=== PATIENT | female | born 1945 | race Caucasian/White ===

== ENCOUNTER 2016-11-17 18:42 | Inpatient (IN) | payer MEDICARE, OTHER ==
[2016-11-17] MEDS ORDERED: ACETAMINOPHEN TAB 500 MG TAB PO STA (19:03)
[2016-11-17] MEDS ORDERED: methylPREDNISolone SOD SUCCI 125 MG/2 ML VIAL IV STA (19:04)
[2016-11-17] MEDS ORDERED: ALBUTEROL NEBULIZED 15 MG, IPRATROPIUM NEBULIZED 0.5 MG INHALATION ONE ×2 (19:04)
--- NOTE | 2016-11-17 19:11 | ED ---
SOB HPI - General Source: patient, RN notes reviewed Mode of arrival: EMS Limitations: no limitations <Kristie Hay - Last Filed: 11/17/16 19:50> <Misbah Curtis - Last Filed: 11/17/16 20:50> <Richard Jimenez - Last Filed: 11/17/16 21:45> - General Chief Complaint: Shortness of Breath Stated Complaint: Weakness Time Seen by Provider: 11/17/16 18:59 - History of Present Illness Initial Comments: 71-year-old female presents to the emergency department chief complaint of increased shortness of breath. The patient has been being treated for bronchitis outpatiently for the past week or so. The patient states today she had increased shortness of breath she has had a cough. Patient states that she developed a fever as well. Patient is a no pain she just feels very short of breath and very tired. Patient states she does wear oxygen at night but does not wear during the day. Patient states that she hasn't had any nausea or vomiting with this. Patient is otherwise a poor historian and unable to give any other history. Family unable to give any other history either. (Kristie Hay) - Related Data Home Medications Medication Instructions Recorded Confirmed Atenolol [Tenormin] 25 mg PO DAILY 11/17/16 11/17/16 Atorvastatin [Lipitor] 40 mg PO HS 11/17/16 11/17/16 Cholecalciferol [Vitamin D3] 4,000 unit PO DAILY 11/17/16 11/17/16 Cyanocobalamin [Vitamin B-12] 500 mcg PO DAILY 11/17/16 11/17/16 Fluticasone/Salmeterol [Advair 1 puff INHALATION RT-BID 11/17/16 11/17/16 250-50 Diskus] Gabapentin 800 mg PO TID 11/17/16 11/17/16 Glimepiride [Amaryl] 4 mg PO AC-BID 11/17/16 11/17/16 Insulin Aspart [NovoLOG Flexpen] 20 units SQ AC-TID 11/17/16 11/17/16 Insulin Degludec [Tresiba 88 unit SQ DAILY 11/17/16 11/17/16 Flextouch U-200] Insulin Detemir [Levemir] 80 unit SQ DAILY 11/17/16 11/17/16 Losartan/Hydrochlorothiazide 1 tab PO DAILY 11/17/16 11/17/16 [Losartan-Hctz 100-12.5 mg Tab] Meclizine [Antivert] 12.5 mg PO TID PRN 11/17/16 11/17/16 Meloxicam [Mobic] 7.5 mg PO HS 11/17/16 11/17/16 Metoprolol Succinate [Toprol XL] 25 mg PO DAILY 11/17/16 11/17/16 Nizatidine [Axid] 150 mg PO HS 11/17/16 11/17/16 Omeprazole 20 mg PO DAILY 11/17/16 11/17/16 glyBURIDE/METFORMIN HCL 1 tab PO BID 11/17/16 11/17/16 [glyBURIDE/METFORMIN HCL 5-500 mg] Allergies Allergy/AdvReac Type Severity Reaction Status Date / Time codeine Allergy Unknown Verified 11/17/16 19:23 Review of Systems ROS Other: All systems not noted in ROS Statement are negative. <Kristie Hay - Last Filed: 11/17/16 19:50> ROS Other: All systems not noted in ROS Statement are negative. <Misbah Curtis - Last Filed: 11/17/16 20:50> ROS Other: All systems not noted in ROS Statement are negative. <Richard Jimenez - Last Filed: 11/17/16 21:45> ROS Statement: Those systems with pertinent positive or pertinent negative responses have been documented in the HPI. Past Medical History Past Medical History: COPD, Diabetes Mellitus, Hyperlipidemia, Hypertension, Memory Impairment Additional Past Medical History / Comment(s): lung cancer, tubal ligation, spinal meningitis 1970, wears 2L o2 at night History of Any Multi-Drug Resistant Organisms: None Reported Additional Past Surgical History / Comment(s): left lower lobe lung removed, right shoulder rotator cuff Past Psychological History: No Psychological Hx Reported Smoking Status: Former smoker Past Alcohol Use History: None Reported Past Drug Use History: None Reported <Kristie Hay - Last Filed: 11/17/16 19:50> General Exam Limitations: no limitations General appearance: alert, in distress (x) Head exam: Present: atraumatic, normocephalic, normal inspection Eye exam: Present: normal appearance, PERRL, EOMI. Absent: scleral icterus, conjunctival injection, periorbital swelling ENT exam: Present: normal exam, mucous membranes moist Respiratory exam: Present: respiratory distress (Mild), wheezes (Diffuse), decreased breath sounds (Diffuse). Absent: chest wall tenderness Cardiovascular Exam: Present: tachycardia, normal heart sounds GI/Abdominal exam: Present: soft, normal bowel sounds. Absent: distended, tenderness, guarding, rebound, rigid Neurological exam: Present: alert, oriented X3, CN II-XII intact. Absent: motor sensory deficit Psychiatric exam: Present: normal affect, normal mood Skin exam: Present: warm, dry, intact, normal color. Absent: rash <Kristie Hay - Last Filed: 11/17/16 19:50> Course <Kristie Hay - Last Filed: 11/17/16 19:50> <Misbah Curtis - Last Filed: 11/17/16 20:50> <Richard Jimenez - Last Filed: 11/17/16 21:45> Vital Signs 11/17/16 11/17/16 11/17/16 18:59 19:44 19:49 Temperature 102.9 F H Pulse Rate 125 H 118 H 98 Respiratory 24 20 Rate Blood Pressure 213/90 192/92 O2 Sat by Pulse 92 L 94 L Oximetry 11/17/16 11/17/16 11/17/16 19:56 20:00 20:30 Temperature Pulse Rate 116 H 100 120 H Respiratory 16 18 Rate Blood Pressure 193/70 170/78 O2 Sat by Pulse 94 L 95 Oximetry 11/17/16 11/17/16 11/17/16 20:49 20:55 21:01 Temperature 101.5 F H Pulse Rate 120 H 122 H Respiratory 20 Rate Blood Pressure 202/75 O2 Sat by Pulse 95 Oximetry 11/17/16 21:17 Temperature Pulse Rate 120 H Respiratory 16 Rate Blood Pressure 168/62 O2 Sat by Pulse 92 L Oximetry - Reevaluation(s) Reevaluation #1: 11/17/16 19:51 This case will be signed out to Dr. Curtis. (Kristie Hay) Medical Decision Making - Lab Data Result diagrams: 11/17/16 19:00 <Kristie Hay - Last Filed: 11/17/16 19:50> - Lab Data Result diagrams: 11/17/16 19:00 11/17/16 19:00 <Misbah Curtis - Last Filed: 11/17/16 20:50> - Lab Data Result diagrams: 11/17/16 19:00 11/17/16 19:00 <Richard Jimenez - Last Filed: 11/17/16 21:45> - Medical Decision Making 71-year-old female presents to the emergency department with a chief complaint of shortness of breath. (Kristie Hay) Dr. Emanuel will be taking over the care of this patient at 9 PM (Misbah Curtis) Receive this patient has a sign out to arrange the patient's admission for COPD exacerbation and probable pneumonia, and to receive the results of the influenza swab which is negative now. Case discussed with , who will admit for further treatment. (Richadr Jimenez) - Lab Data Lab Results 11/17/16 11/17/16 11/17/16 Range/Units 19:00 19:00 19:00 WBC 8.8 (3.8-10.6) k/uL RBC 4.88 (3.80-5.40) m/uL Hgb 13.4 (11.4-16.0) gm/dL Hct 41.7 (34.0-46.0) % MCV 85.5 (80.0-100.0) fL MCH 27.5 (25.0-35.0) pg MCHC 32.1 (31.0-37.0) g/dL RDW 14.2 (11.5-15.5) % Plt Count 182 (150-450) k/uL Neutrophils % 79 % Lymphocytes % 13 % Monocytes % 5 % Eosinophils % 0 % Basophils % 1 % Neutrophils # 6.9 (1.3-7.7) k/uL Lymphocytes # 1.1 (1.0-4.8) k/uL Monocytes # 0.5 (0-1.0) k/uL Eosinophils # 0.0 (0-0.7) k/uL Basophils # 0.1 (0-0.2) k/uL PT (9.0-12.0) sec INR (<1.1) APTT (22.0-30.0) sec Sodium 135 L (137-145) mmol/L Potassium 4.7 (3.5-5.1) mmol/L Chloride 97 L (98-107) mmol/L Carbon Dioxide 28 (22-30) mmol/L Anion Gap 10 mmol/L BUN 31 H (7-17) mg/dL Creatinine 0.70 (0.52-1.04) mg/dL Est GFR (MDRD) Af Amer >60 (>60 ml/min/1.73 sqM) Est GFR (MDRD) Non-Af >60 (>60 ml/min/1.73 sqM) Glucose 229 H (74-99) mg/dL POC Glucose (mg/dL) (75-99) mg/dL POC Glu Social Media Senior Associate ID Plasma Lactic Acid [place] (0.7-2.0) mmol/L Calcium 8.5 (8.4-10.2) mg/dL Total Bilirubin 0.5 (0.2-1.3) mg/dL AST 25 (14-36) U/L ALT 29 (9-52) U/L Alkaline Phosphatase 66 (38-126) U/L Total Creatine Kinase 65 (30-135) U/L CK-MB (CK-2) 1.1 (0.0-2.4) ng/mL CK-MB (CK-2) Rel Index 1.7 Troponin I 0.053 H* (0.000-0.034) ng/mL NT-Pro-B Natriuret Pep pg/mL Total Protein 6.5 (6.3-8.2) g/dL Albumin 3.2 L (3.5-5.0) g/dL Cortisol 37 ug/dL Urine Color Urine Appearance (Clear) Urine pH (5.0-8.0) Ur Specific [place] (1.001-1.035) Urine Protein (Negative) Urine Glucose (UA) (Negative) Urine Ketones (Negative) Urine Blood (Negative) Urine Nitrate (Negative) Urine Bilirubin (Negative) Urine Urobilinogen (<2.0) mg/dL Ur Leukocyte Esterase (Negative) Urine RBC (0-5) /hpf Urine WBC (0-5) /hpf Urine Mucus (None) /hpf Acetone, Qual (Negative) Influenza Type A RNA (Not Detectd) Influenza Type B (PCR) (Not Detectd) 11/17/16 11/17/16 11/17/16 Range/Units 19:00 19:00 19:00 WBC (3.8-10.6) k/uL RBC (3.80-5.40) m/uL Hgb (11.4-16.0) gm/dL Hct (34.0-46.0) % MCV (80.0-100.0) fL MCH (25.0-35.0) pg MCHC (31.0-37.0) g/dL RDW (11.5-15.5) % Plt Count (150-450) k/uL Neutrophils % % Lymphocytes % % Monocytes % % Eosinophils % % Basophils % % Neutrophils # (1.3-7.7) k/uL Lymphocytes # (1.0-4.8) k/uL Monocytes # (0-1.0) k/uL Eosinophils # (0-0.7) k/uL Basophils # (0-0.2) k/uL PT 10.3 (9.0-12.0) sec INR 1.0 (<1.1) APTT 20.9 L (22.0-30.0) sec Sodium (137-145) mmol/L Potassium (3.5-5.1) mmol/L Chloride (98-107) mmol/L Carbon Dioxide (22-30) mmol/L Anion Gap mmol/L BUN (7-17) mg/dL Creatinine (0.52-1.04) mg/dL Est GFR (MDRD) Af Amer (>60 ml/min/1.73 sqM) Est GFR (MDRD) Non-Af (>60 ml/min/1.73 sqM) Glucose (74-99) mg/dL POC Glucose (mg/dL) (75-99) mg/dL POC Glu Social Media Senior Associate ID Plasma Lactic Acid [place] 0.9 (0.7-2.0) mmol/L Calcium (8.4-10.2) mg/dL Total Bilirubin (0.2-1.3) mg/dL AST (14-36) U/L ALT (9-52) U/L Alkaline Phosphatase (38-126) U/L Total Creatine Kinase (30-135) U/L CK-MB (CK-2) (0.0-2.4) ng/mL CK-MB (CK-2) Rel Index Troponin I (0.000-0.034) ng/mL NT-Pro-B Natriuret Pep 626 pg/mL Total Protein (6.3-8.2) g/dL Albumin (3.5-5.0) g/dL Cortisol ug/dL Urine Color Urine Appearance (Clear) Urine pH (5.0-8.0) Ur Specific [place] (1.001-1.035) Urine Protein (Negative) Urine Glucose (UA) (Negative) Urine Ketones (Negative) Urine Blood (Negative) Urine Nitrate (Negative) Urine Bilirubin (Negative) Urine Urobilinogen (<2.0) mg/dL Ur Leukocyte Esterase (Negative) Urine RBC (0-5) /hpf Urine WBC (0-5) /hpf Urine Mucus (None) /hpf Acetone, Qual (Negative) Influenza Type A RNA (Not Detectd) Influenza Type B (PCR) (Not Detectd) 11/17/16 11/17/16 11/17/16 Range/Units 19:00 19:35 19:48 WBC (3.8-10.6) k/uL RBC (3.80-5.40) m/uL Hgb (11.4-16.0) gm/dL Hct (34.0-46.0) % MCV (80.0-100.0) fL MCH (25.0-35.0) pg MCHC (31.0-37.0) g/dL RDW (11.5-15.5) % Plt Count (150-450) k/uL Neutrophils % % Lymphocytes % % Monocytes % % Eosinophils % % Basophils % % Neutrophils # (1.3-7.7) k/uL Lymphocytes # (1.0-4.8) k/uL Monocytes # (0-1.0) k/uL Eosinophils # (0-0.7) k/uL Basophils # (0-0.2) k/uL PT (9.0-12.0) sec INR (<1.1) APTT (22.0-30.0) sec Sodium (137-145) mmol/L Potassium (3.5-5.1) mmol/L Chloride (98-107) mmol/L Carbon Dioxide (22-30) mmol/L Anion Gap mmol/L BUN (7-17) mg/dL Creatinine (0.52-1.04) mg/dL Est GFR (MDRD) Af Amer (>60 ml/min/1.73 sqM) Est GFR (MDRD) Non-Af (>60 ml/min/1.73 sqM) Glucose (74-99) mg/dL POC Glucose (mg/dL) 219 H (75-99) mg/dL POC Glu Social Media Senior Associate ID Denisa Hernandez Plasma Lactic Acid [place] (0.7-2.0) mmol/L Calcium (8.4-10.2) mg/dL Total Bilirubin (0.2-1.3) mg/dL AST (14-36) U/L ALT (9-52) U/L Alkaline Phosphatase (38-126) U/L Total Creatine Kinase (30-135) U/L CK-MB (CK-2) (0.0-2.4) ng/mL CK-MB (CK-2) Rel Index Troponin I (0.000-0.034) ng/mL NT-Pro-B Natriuret Pep pg/mL Total Protein (6.3-8.2) g/dL Albumin (3.5-5.0) g/dL Cortisol ug/dL Urine Color Yellow Urine Appearance Cloudy H (Clear) Urine pH 6.0 (5.0-8.0) Ur Specific [place] 1.016 (1.001-1.035) Urine Protein 3+ H (Negative) Urine Glucose (UA) Negative (Negative) Urine Ketones Negative (Negative) Urine Blood Small H (Negative) Urine Nitrate Negative (Negative) Urine Bilirubin Negative (Negative) Urine Urobilinogen <2.0 (<2.0) mg/dL Ur Leukocyte Esterase Trace H (Negative) Urine RBC 3 (0-5) /hpf Urine WBC 15 H (0-5) /hpf Urine Mucus Rare H (None) /hpf Acetone, Qual Negative (Negative) Influenza Type A RNA (Not Detectd) Influenza Type B (PCR) (Not Detectd) 11/17/16 Range/Units 20:25 WBC (3.8-10.6) k/uL RBC (3.80-5.40) m/uL Hgb (11.4-16.0) gm/dL Hct (34.0-46.0) % MCV (80.0-100.0) fL MCH (25.0-35.0) pg MCHC (31.0-37.0) g/dL RDW (11.5-15.5) % Plt Count (150-450) k/uL Neutrophils % % Lymphocytes % % Monocytes % % Eosinophils % % Basophils % % Neutrophils # (1.3-7.7) k/uL Lymphocytes # (1.0-4.8) k/uL Monocytes # (0-1.0) k/uL Eosinophils # (0-0.7) k/uL Basophils # (0-0.2) k/uL PT (9.0-12.0) sec INR (<1.1) APTT (22.0-30.0) sec Sodium (137-145) mmol/L Potassium (3.5-5.1) mmol/L Chloride (98-107) mmol/L Carbon Dioxide (22-30) mmol/L Anion Gap mmol/L BUN (7-17) mg/dL Creatinine (0.52-1.04) mg/dL Est GFR (MDRD) Af Amer (>60 ml/min/1.73 sqM) Est GFR (MDRD) Non-Af (>60 ml/min/1.73 sqM) Glucose (74-99) mg/dL POC Glucose (mg/dL) (75-99) mg/dL POC Glu Social Media Senior Associate ID Plasma Lactic Acid [place] (0.7-2.0) mmol/L Calcium (8.4-10.2) mg/dL Total Bilirubin (0.2-1.3) mg/dL AST (14-36) U/L ALT (9-52) U/L Alkaline Phosphatase (38-126) U/L Total Creatine Kinase (30-135) U/L CK-MB (CK-2) (0.0-2.4) ng/mL CK-MB (CK-2) Rel Index Troponin I (0.000-0.034) ng/mL NT-Pro-B Natriuret Pep pg/mL Total Protein (6.3-8.2) g/dL Albumin (3.5-5.0) g/dL Cortisol ug/dL Urine Color Urine Appearance (Clear) Urine pH (5.0-8.0) Ur Specific [place] (1.001-1.035) Urine Protein (Negative) Urine Glucose (UA) (Negative) Urine Ketones (Negative) Urine Blood (Negative) Urine Nitrate (Negative) Urine Bilirubin (Negative) Urine Urobilinogen (<2.0) mg/dL Ur Leukocyte Esterase (Negative) Urine RBC (0-5) /hpf Urine WBC (0-5) /hpf Urine Mucus (None) /hpf Acetone, Qual (Negative) Influenza Type A RNA Not Detected (Not Detectd) Influenza Type B (PCR) Not Detected (Not Detectd) 11/17/16 19:50 Sinus tachycardia 119 possible left atrial enlargement, incomplete right bundle branch block, T-wave inversion in V5 and V6. No ST elevation (Kristie Hay) Disposition <Kristie Hay - Last Filed: 11/17/16 19:50> <Misbah Curtis - Last Filed: 11/17/16 20:50> <Richard Jimenez - Last Filed: 11/17/16 21:45> Clinical Impression: COPD exacerbation, Pneumonia Narrative: Possible influenza (Richard Jimenez) Disposition: ADMITTED IP TO THIS HOSP Condition: Fair Referrals: Mariaa Chery DO [Primary Care Provider] - 1-2 days
[2016-11-17] MEDS ORDERED: IBUPROFEN 600 MG TAB PO STA (19:16)
[2016-11-17] MEDS ORDERED: hydrALAZINE HCL 20 MG/ML 1 ML VIAL IVP STA (19:16)
[2016-11-17 19:31] LABS: Basophils # (A) 0.1 k/uL (0-0.2); Basophils % (A) 1 %; CH 28.6; CHCM 33.6; Eosinophils % (A) 0 %; HCT 41.7 % (34.0-46.0); HDW 3.09; HGB 13.4 gm/dL (11.4-16.0); Luc # (Auto) 0.18; Luc % (Auto) 2; Lymphocytes # (A) 1.1 k/uL (1.0-4.8); Lymphocytes % (A) 13 %; MCH 27.5 pg (25.0-35.0); MCHC 32.1 g/dL (31.0-37.0); MCV 85.5 fL (80.0-100.0); Mean Platelet Volume 7.2; Monocytes # (A) 0.5 k/uL (0-1.0); Monocytes % (A) 5 %; Neutrophils # (A) 6.9 k/uL (1.3-7.7); Neutrophils % (A) 79 %; RBC 4.88 m/uL (3.80-5.40); RDW 14.2 % (11.5-15.5); WBC 8.8 k/uL (3.8-10.6); WBC (Perox) 8.82
[2016-11-17] MEDS: SODIUM CHLORIDE 0.9% 500 ML IV SCH ×2 (19:49→23:21)
[2016-11-17 19:51] LABS: Glucose,Whole Blood 219 mg/dL (75-99)
[2016-11-17 19:52] LABS: ALT 29 U/L (9-52); AST 25 U/L (14-36); Alkaline Phosphatase 66 U/L (38-126); Anion Gap 10 mmol/L; Blood Urea Nitrogen 31 mg/dL (7-17); Calcium 8.5 mg/dL (8.4-10.2); Carbon Dioxide 28 mmol/L (22-30); Chloride 97 mmol/L (98-107); Glucose 229 mg/dL (74-99); Non-African American GFR(MDRD) >60 (>60 ml/min/1.73 sqM); Potassium 4.7 mmol/L (3.5-5.1); Sodium 135 mmol/L (137-145); Total Bilirubin 0.5 mg/dL (0.2-1.3); Total Protein 6.5 g/dL (6.3-8.2)
[2016-11-17 19:53] LABS: Appearance,Urine Cloudy (Clear); Bilirubin,Urine Negative (Negative); Glucose,Urine (UA) Negative (Negative); Ketones,Urine Negative (Negative); Leukocyte Esterase,Urine Trace (Negative); Mucus,Urine Rare /hpf; Nitrite,Urine Negative (Negative); Particle Count 126188; Protein,Urine 3+ (Negative); RBC,Urine 3 /hpf (0-5); Specific Gravity,Urine 1.016 (1.001-1.035); UA Billing (MACRO vs. MICRO) MICRO; Urobilinogen,Urine <2.0 mg/dL (<2.0); WBC,Urine 15 /hpf (0-5)
--- NOTE | 2016-11-17 20:03 | XR ---
EXAMINATION TYPE: XR chest 2V DATE OF EXAM: 11/17/2016 7:26 PM COMPARISON: 01/15/2010 HISTORY: Weakness and fever TECHNIQUE: Frontal and lateral views of the chest are obtained. FINDINGS: There is evidence of infiltrate in the left lower lobe with also blunting of left costophr enic angle. There is mild pulmonary vascular congestion. Thoracic aorta is atheromatous. There are no hilar masses. The bony thorax is intact. IMPRESSION: There is infiltrate and pleural fluid in the left lower lobe with more than 50% clearing compared to last exam of 01/15/2010. There is also clearing of a rounded 3 cm pneumonia in the right m idlung since last exam. There is mild pulmonary vascular congestion.
[2016-11-17 20:06] LABS: Creatine Kinase MB 1.1 ng/mL (0.0-2.4)
[2016-11-17 20:18] LABS: Prothrombin Time 10.3 sec (9.0-12.0)
[2016-11-17 20:24] LABS: Troponin I 0.053 ng/mL (0.000-0.034)
[2016-11-17 20:31] LABS: Partial Thromboplastin Time 20.9 sec (22.0-30.0)
[2016-11-17] MEDS ORDERED: AZITHROMYCIN 500 MG TAB PO STA (21:13)
[2016-11-17] MEDS: SODIUM CHLORIDE 0.9% 1,000 ML IV SCH (21:22)
[2016-11-18] MEDS: GABAPENTIN 400 MG CAP PO SCH ×4 (00:19→21:01)
[2016-11-18 01:44] LABS: Creatine Kinase MB 1.2 ng/mL (0.0-2.4)
[2016-11-18 01:50] LABS: Troponin I 0.075 ng/mL (0.000-0.034)
[2016-11-18 06:20] LABS: Glucose,Whole Blood 359 mg/dL (75-99)
[2016-11-18] MEDS: GLIMEPIRIDE 4 MG TAB PO SCH ×2 (07:09→16:24)
[2016-11-18] MEDS: PANTOPRAZOLE 40 MG TABLET PO SCH (07:09)
[2016-11-18] MEDS: INSULIN LISPRO (humaLOG) 300 UNIT/3 ML VIAL SQ SCH ×7 (07:09→21:03)
[2016-11-18] MEDS: metFORMIN 500 MG TAB PO SCH ×2 (07:09→16:24)
[2016-11-18] MEDS: glipiZIDE 5 MG TAB PO SCH ×2 (07:09→16:24)
[2016-11-18 07:36] LABS: Creatine Kinase MB 1.3 ng/mL (0.0-2.4)
[2016-11-18 07:37] LABS: Troponin I 0.035 ng/mL (0.000-0.034)
[2016-11-18] MEDS: CHOLECALCIFEROL 1,000 UNIT TAB PO SCH (07:44)
[2016-11-18] MEDS: CYANOCOBALAMIN 500 MCG TAB PO SCH (07:45)
[2016-11-18] MEDS: HYDROCHLOROTHIAZIDE 12.5 MG CAP PO SCH (07:45)
[2016-11-18] MEDS: HEPARIN SODIUM,PORCINE 5,000 UNIT/ML 1 ML VIAL SQ SCH ×2 (07:45→21:01)
[2016-11-18] MEDS: LOSARTAN 50 MG TAB PO SCH (07:46)
[2016-11-18] MEDS: SYMBICORT 80-4.5 MCG INHALER INHALATION SCH ×2 (08:00→20:19)
[2016-11-18] MEDS ORDERED: INSULIN DEGLUDEC SQ SCH (09:00)
[2016-11-18] MEDS ORDERED: ATENOLOL 25 MG TAB PO SCH (09:00)
[2016-11-18] MEDS: predniSONE 20 MG TAB PO SCH (09:35)
[2016-11-18] MEDS: IPRATROPIUM-ALBUTEROL 3 ML NEB INHALATION SCH ×5 (11:18→20:17)
[2016-11-18 11:32] VITALS: BMI 29.7
[2016-11-18 11:39] LABS: Glucose,Whole Blood 293 mg/dL (75-99)
--- NOTE | 2016-11-18 13:06 | P.HPIM ---
History of Present Illness H&P Date: 11/18/16 Chief Complaint: Weakness febrile illness and cough Patient is a 71-year-old female patient of Dr. Mariaa Chery who presented to [facility] emergency room with increased weakness elevated temperature and cough she was evaluated in the emergency room preliminary diagnosis was pneumonia she was admitted to telemetry floor she was started on IV antibiotic in the emergency room she was given IV Rocephin and IV Zithromax she was also started on IV Solu-Medrol and admitted to telemetry floor. Patient states that she had pneumonia previously of 6-7 years ago otherwise she denies any previous lung disease. She denies ever smoking. She states that she has coronary artery disease she had angioplasty and stent placement in the past. Review of Systems Respiratory: Reports congestion, Reports cough Past Medical History Past Medical History: COPD, Diabetes Mellitus, Hyperlipidemia, Hypertension, Memory Impairment Additional Past Medical History / Comment(s): lung cancer, tubal ligation, spinal meningitis 1971, wears 2L o2 at night History of Any Multi-Drug Resistant Organisms: None Reported Additional Past Surgical History / Comment(s): left lower lobe lung removed, right shoulder rotator cuff Past Anesthesia/Blood Transfusion Reactions: No Reported Reaction Past Psychological History: No Psychological Hx Reported Smoking Status: Former smoker Past Alcohol Use History: None Reported Past Drug Use History: None Reported - Past Family History Mother Family Medical History: No Reported History Medications and Allergies Home Medications Medication Instructions Recorded Confirmed Type Atorvastatin [Lipitor] 40 mg PO HS 11/17/16 11/17/16 History Cholecalciferol [Vitamin D3] 4,000 unit PO DAILY 11/17/16 11/17/16 History Cyanocobalamin [Vitamin B-12] 500 mcg PO DAILY 11/17/16 11/17/16 History Fluticasone/Salmeterol [Advair 1 puff INHALATION RT-BID 11/17/16 11/17/16 History 250-50 Diskus] Gabapentin 800 mg PO TID 11/17/16 11/17/16 History Glimepiride [Amaryl] 4 mg PO AC-BID 11/17/16 11/17/16 History Insulin Aspart [NovoLOG Flexpen] 20 units SQ AC-TID 11/17/16 11/17/16 History Insulin Degludec [Tresiba 88 unit SQ DAILY 11/17/16 11/17/16 History Flextouch U-200] Insulin Detemir [Levemir] 80 unit SQ DAILY 11/17/16 11/17/16 History Losartan/Hydrochlorothiazide 1 tab PO DAILY 11/17/16 11/17/16 History [Losartan-Hctz 100-12.5 mg Tab] Meclizine [Antivert] 12.5 mg PO TID PRN 11/17/16 11/17/16 History Meloxicam [Mobic] 7.5 mg PO HS 11/17/16 11/17/16 History Metoprolol Succinate [Toprol XL] 25 mg PO DAILY 11/17/16 11/17/16 History Nizatidine [Axid] 150 mg PO HS 11/17/16 11/17/16 History Omeprazole 20 mg PO DAILY 11/17/16 11/17/16 History glyBURIDE/METFORMIN HCL 1 tab PO BID 11/17/16 11/17/16 History [glyBURIDE/METFORMIN HCL 5-500 mg] Allergies Allergy/AdvReac Type Severity Reaction Status Date / Time codeine Allergy Unknown Verified 11/17/16 19:23 Physical Exam Vitals: Vital Signs Temp Pulse Pulse Resp BP BP Pulse Ox 11/18/16 11:40 110 H 11/18/16 11:25 112 H 11/18/16 08:30 85 20 11/18/16 07:55 96.8 F L 85 16 162/74 93 L 11/18/16 04:00 97.2 F L 76 18 161/66 95 11/17/16 23:05 97.1 F L 93 18 172/73 94 L 11/17/16 22:34 98.7 F 11/17/16 22:28 112 H 16 177/66 93 L 11/17/16 22:00 97.1 F L 93 18 172/73 94 L 11/17/16 21:45 100 F H 110 H 16 179/82 92 L 11/17/16 21:17 120 H 16 168/62 92 L Intake and Output 11/17/16 11/18/16 11/18/16 22:59 06:59 14:59 Intake Total 20 20 Balance 20 20 Intake: IV 20 20 Sodium Chloride 0.9% 1, 20 20 000 ml @ 20 mls/hr IV . Q24H [facility] Rx#:[id number] Other: Voiding Method Toilet Bedside Commode Weight 108.8 kg 91.3 kg 91.3 kg Patient Weight 11/19/16 06:59 Weight 91.3 kg In general patient is alert and oriented 3 in no apparent distress HEENT head normocephalic and atraumatic Neck is supple no JVD no goiter no lymphadenopathy Chest exam reveals crackles in both lung castro with wheezing Cardiac exam reveals regular heart sounds S1 and S2 no gallops no murmurs Abdomen is soft nontender no organomegaly Extremity exam reveals no edema no cyanosis or clubbing Results CBC & Chem 7: 11/17/16 19:00 11/17/16 19:00 Labs: Abnormal Lab Results - Last 24 Hours (Table) 11/18/16 11/18/16 11/18/16 Range/Units 00:48 06:12 06:18 POC Glucose (mg/dL) 359 H (75-99) mg/dL Troponin I 0.075 H* 0.035 H* (0.000-0.034) ng/mL 11/18/16 Range/Units 11:31 POC Glucose (mg/dL) 293 H (75-99) mg/dL Troponin I (0.000-0.034) ng/mL Thrombosis Risk Factor Assmnt - Choose All That Apply Any of the Below Risk Factors Present?: No Other Risk Factors: Yes Each Risk Factor Represents 2 Points: Age 61-74 years Thrombosis Risk Factor Assessment Total Risk Factor Score: 2 Thrombosis Risk Factor Assessment Level: Low Risk Assessment and Plan Plan: #1 left lower lobe infiltrate suggestive of pneumonia #2 chest congestion with wheezing, there is no previous diagnosis of asthma or COPD, currently maintained on IV Solu-Medrol and inhaled bronchodilators, patient will need a complete pulmonary function test to assess diagnosis #3 underlying history of diabetes mellitus with hyperglycemia due to steroid use maintained on NovoLog sliding scale in addition to her regular medications #4 underlying history of coronary artery disease was previous history of angioplasty and stent placement #5 slight elevation in troponin level on admission without any history of chest pain likely of no clinical significance #6 for DVT prophylaxis patient on subcu Lovenox Will follow closely please see orders
[2016-11-18 14:59] LABS: Hemoglobin A1C 7.9 % (4.2-6.1)
--- NOTE | 2016-11-18 16:19 | P.CNPUL ---
History of Present Illness Consult date: 11/18/16 Requesting physician: Ramonita Sorenson Reason for consult: COPD Chief complaint: Shortness of breath, weakness History of present illness: This is a very pleasant 71-year-old female patient who follows with Dr. Chery as her primary care physician. She has a history of diabetes mellitus , hypertension, hyperlipidemia, memory impairment, COPD and is maintained on Advair and albuterol. She is oxygen dependent. She did smoke for approximately 25 years at 1 pack per day however quit approximately 25 years ago. 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 She does have a history of lung cancer and is status post left lower lobectomy and chemotherapy. This was several years ago and the patient is unclear of the details. She has not had any recurrence of cancer. She presented to the emergency room last evening after a near syncopal episode where her legs got quite weak and she had some altered mental status. She states her held her out by her arms and her grandson called 911 and the patient had suffered from flulike symptoms approximately 2 weeks ago which she states was positive and she was treated with Tamiflu and had recovered. Approximate 1 week ago she felt as though she was starting to have similar symptoms of generalized weakness and fatigue. She also had developed increased shortness of breath. No significant cough or congestion. No chills or night sweats. Her chest x-ray reveals chronic changes in the left lower lobe possible postsurgical changes. Her influenza screen is negative. She did present with a T-max of 102.9. No leukocytosis. Small troponin leak. Blood and urine cultures are pending. She is utilizing 4 L/m per nasal cannula to maintain O2 saturations in the 90s. She is seen today in consultation on the selective care unit. She is awake and alert sitting up in the chair at the bedside. She states she is feeling quite a bit better today as compared to yesterday. She denies any worsening shortness of breath. She has a loose nonproductive cough. Currently afebrile. Past Medical History Past Medical History: COPD, Diabetes Mellitus, Hyperlipidemia, Hypertension, Memory Impairment Additional Past Medical History / Comment(s): lung cancer, tubal ligation, spinal meningitis 1970, wears 2L o2 at night History of Any Multi-Drug Resistant Organisms: None Reported Additional Past Surgical History / Comment(s): left lower lobe lung removed, right shoulder rotator cuff Past Anesthesia/Blood Transfusion Reactions: No Reported Reaction Past Psychological History: No Psychological Hx Reported Smoking Status: Former smoker Past Alcohol Use History: None Reported Past Drug Use History: None Reported - Past Family History Mother Family Medical History: No Reported History Medications and Allergies Home Medications Medication Instructions Recorded Confirmed Type Atorvastatin [Lipitor] 40 mg PO HS 11/17/16 11/17/16 History Cholecalciferol [Vitamin D3] 4,000 unit PO DAILY 11/17/16 11/17/16 History Cyanocobalamin [Vitamin B-12] 500 mcg PO DAILY 11/17/16 11/17/16 History Fluticasone/Salmeterol [Advair 1 puff INHALATION RT-BID 11/17/16 11/17/16 History 250-50 Diskus] Gabapentin 800 mg PO TID 11/17/16 11/17/16 History Glimepiride [Amaryl] 4 mg PO AC-BID 11/17/16 11/17/16 History Insulin Aspart [NovoLOG Flexpen] 20 units SQ AC-TID 11/17/16 11/17/16 History Insulin Degludec [Tresiba 88 unit SQ DAILY 11/17/16 11/17/16 History Flextouch U-200] Insulin Detemir [Levemir] 80 unit SQ DAILY 11/17/16 11/17/16 History Losartan/Hydrochlorothiazide 1 tab PO DAILY 11/17/16 11/17/16 History [Losartan-Hctz 100-12.5 mg Tab] Meclizine [Antivert] 12.5 mg PO TID PRN 11/17/16 11/17/16 History Meloxicam [Mobic] 7.5 mg PO HS 11/17/16 11/17/16 History Metoprolol Succinate [Toprol XL] 25 mg PO DAILY 11/17/16 11/17/16 History Nizatidine [Axid] 150 mg PO HS 11/17/16 11/17/16 History Omeprazole 20 mg PO DAILY 11/17/16 11/17/16 History glyBURIDE/METFORMIN HCL 1 tab PO BID 11/17/16 11/17/16 History [glyBURIDE/METFORMIN HCL 5-500 mg] Allergies Allergy/AdvReac Type Severity Reaction Status Date / Time codeine Allergy Unknown Verified 11/17/16 19:23 Physical Exam Vitals: Vital Signs Temp Pulse Pulse Resp BP BP Pulse Ox 11/18/16 15:48 108 H 11/18/16 12:00 96.6 F L 79 16 143/67 93 L 11/18/16 11:40 110 H 11/18/16 11:25 112 H 11/18/16 08:30 85 20 11/18/16 07:55 96.8 F L 85 16 162/74 93 L 11/18/16 04:00 97.2 F L 76 18 161/66 95 11/17/16 23:05 97.1 F L 93 18 172/73 94 L 11/17/16 22:34 98.7 F 11/17/16 22:28 112 H 16 177/66 93 L 11/17/16 22:00 97.1 F L 93 18 172/73 94 L 11/17/16 21:45 100 F H 110 H 16 179/82 92 L 11/17/16 21:17 120 H 16 168/62 92 L Intake and Output 11/18/16 11/18/16 11/18/16 06:59 14:59 22:59 Intake Total 20 236 Balance 20 236 Intake: IV 20 Sodium Chloride 0.9% 1, 20 000 ml @ 20 mls/hr IV . Q24H [facility] Rx#:[id number] Oral 236 Other: Voiding Method Toilet Bedside Commode # Voids 1 Weight 91.3 kg 91.3 kg Patient Weight 11/19/16 06:59 Weight 91.3 kg GENERAL EXAM: Alert, active, comfortable in no apparent distress. HEAD: Normocephalic. EYES: Normal reaction of pupils, equal size. NOSE: Clear with pink turbinates. THROAT: No erythema or exudates. NECK: No masses, no JVD. CHEST: No chest wall deformity. LUNGS: Equal air entry with no crackles, wheeze, rhonchi or dullness. Diminished in the left lung base. CVS: S1 and S2 normal with no audible mumurs, regular rhythm. ABDOMEN: No hepatosplenomegaly, normal bowel sounds, no guarding or rigidity. SPINE: No scoliosis or deformity SKIN: No rashes CENTRAL NERVOUS SYSTEM: No focal deficits, tone is normal in all 4 extremities. Extremities: There is trace peripheral edema. No clubbing, no cyanosis. Peripheral pulses are intact. Results - Laboratory Findings CBC and BMP: 11/17/16 19:00 11/17/16 19:00 PT/INR, D-dimer PT 10.3 sec (9.0-12.0) 11/17/16 19:00 INR 1.0 (<1.1) 11/17/16 19:00 Abnormal lab findings: Abnormal Labs 11/18/16 11/18/16 11/18/16 00:48 06:12 06:12 POC Glucose (mg/dL) Hemoglobin A1c 7.9 H Troponin I 0.075 H* 0.035 H* 11/18/16 11/18/16 06:18 11:31 POC Glucose (mg/dL) 359 H 293 H Hemoglobin A1c Troponin I - Diagnostic Findings Chest x-ray: image reviewed Assessment and Plan Plan: Impression: #1 Acute exacerbation of severe, oxygen dependent chronic obstructive pulmonary disease. Changes in the left lower lobe may be chronic in nature as she is status post left lower lung lobectomy secondary to cancer. #2 History of lung cancer status post left lower lobectomy, status post chemotherapy. Unsure of radiation therapy. #3 Remote history of chronic nicotine addiction. #4 Recent influenza treated with Tamiflu. Influenza screen on this admission is negative. #5 Diabetes mellitus. #6 Hypertension. #7 Gastroesophageal reflux disease. #8 Memory impairment. Plan: The patient was seen and evaluated by Dr. Arguello. Her chest x-ray and labs were reviewed. The changes in the left lower lobe were present back in 2009. We will research whether the patient had a lobectomy at that time and what the follow-up treatment was. The patient states she has not had any recurrence of cancer. We may perform a computed tomography scan or an ultrasound of the chest to further evaluate the left lower lung. In the interim, we'll continue with bronchodilators, Symbicort, empiric antibiotics in the form of ceftriaxone and azithromycin. She is on heparin subcutaneous for DVT prophylaxis and Protonix for GI prophylaxis. We'll continue to follow make further recommendations based on her clinical status.
[2016-11-18 16:21] LABS: Glucose,Whole Blood 326 mg/dL (75-99)
[2016-11-18] MEDS: METOPROLOL SUCCINATE (ER) 25 MG TAB.ER.24H PO SCH (16:24)
[2016-11-18] MEDS: FAMOTIDINE 20 MG TAB PO SCH (21:01)
[2016-11-18] MEDS: ATORVASTATIN 40 MG TAB PO SCH (21:01)
[2016-11-18] MEDS: SODIUM CHLORIDE 0.9% 1,000 ML IV SCH (21:02)
[2016-11-18 21:04] LABS: Glucose,Whole Blood 285 mg/dL (75-99)
[2016-11-18] MEDS: AZITHROMYCIN 500 MG in SODIUM CHLORIDE 0.9% 250 ML IVPB SCH (22:10)
[2016-11-19 06:22] LABS: Glucose,Whole Blood 187 mg/dL (75-99)
[2016-11-19 06:26] LABS: Basophils % (A) 0 %; CH 28.3; CHCM 32.6; Eosinophils % (A) 0 %; HCT 37.4 % (34.0-46.0); HDW 3.13; HGB 11.8 gm/dL (11.4-16.0); Luc # (Auto) 0.19; Luc % (Auto) 2; Lymphocytes # (A) 1.6 k/uL (1.0-4.8); Lymphocytes % (A) 17 %; MCH 27.5 pg (25.0-35.0); MCHC 31.5 g/dL (31.0-37.0); MCV 87.3 fL (80.0-100.0); Mean Platelet Volume 7.8; Monocytes # (A) 0.5 k/uL (0-1.0); Monocytes % (A) 6 %; Neutrophils # (A) 6.7 k/uL (1.3-7.7); Neutrophils % (A) 75 %; RBC 4.28 m/uL (3.80-5.40); RDW 14.1 % (11.5-15.5); WBC (Perox) 9.19
[2016-11-19 06:38] LABS: ALT 33 U/L (9-52); AST 26 U/L (14-36); Alkaline Phosphatase 57 U/L (38-126); Anion Gap 10 mmol/L; Blood Urea Nitrogen 54 mg/dL (7-17); Calcium 8.6 mg/dL (8.4-10.2); Carbon Dioxide 24 mmol/L (22-30); Chloride 104 mmol/L (98-107); Glucose 188 mg/dL (74-99); Non-African American GFR(MDRD) 59 (>60 ml/min/1.73 sqM); Potassium 4.8 mmol/L (3.5-5.1); Sodium 138 mmol/L (137-145); Total Bilirubin 0.3 mg/dL (0.2-1.3); Total Protein 5.8 g/dL (6.3-8.2)
[2016-11-19] MEDS: metFORMIN 500 MG TAB PO SCH ×2 (06:55→17:06)
[2016-11-19] MEDS: GLIMEPIRIDE 4 MG TAB PO SCH ×2 (06:55→17:05)
[2016-11-19] MEDS: PANTOPRAZOLE 40 MG TABLET PO SCH (06:55)
[2016-11-19] MEDS: glipiZIDE 5 MG TAB PO SCH ×2 (06:55→17:06)
[2016-11-19] MEDS: INSULIN LISPRO (humaLOG) 300 UNIT/3 ML VIAL SQ SCH ×7 (07:09→20:55)
[2016-11-19] MEDS: IPRATROPIUM-ALBUTEROL 3 ML NEB INHALATION SCH ×4 (07:31→19:52)
[2016-11-19] MEDS: SYMBICORT 80-4.5 MCG INHALER INHALATION SCH ×2 (07:31→19:52)
[2016-11-19] MEDS: HEPARIN SODIUM,PORCINE 5,000 UNIT/ML 1 ML VIAL SQ SCH ×2 (07:51→20:55)
[2016-11-19] MEDS: GABAPENTIN 400 MG CAP PO SCH ×3 (07:51→20:54)
[2016-11-19] MEDS: CYANOCOBALAMIN 500 MCG TAB PO SCH (07:51)
[2016-11-19] MEDS: CHOLECALCIFEROL 1,000 UNIT TAB PO SCH (07:51)
[2016-11-19] MEDS: predniSONE 20 MG TAB PO SCH (07:52)
[2016-11-19] MEDS: HYDROCHLOROTHIAZIDE 12.5 MG CAP PO SCH (07:52)
[2016-11-19] MEDS: METOPROLOL SUCCINATE (ER) 25 MG TAB.ER.24H PO SCH (07:52)
[2016-11-19] MEDS: LOSARTAN 50 MG TAB PO SCH (07:52)
--- NOTE | 2016-11-19 10:41 | P.PN ---
Subjective Patient presented to the emergency room with fever cough and weakness. Found have evidence of pneumonia and COPD exacerbation. Started on antibiotics and IV steroids. Pulmonate service following. Patient is noted some improvement in her breathing and cough. Denies any chest pain. Denies any nausea vomiting. Denies any bowel movement changes or urinary symptoms. Objective - Vital Signs Vital signs: Vital Signs Temp 98.1 F 11/19/16 08:00 Pulse 74 11/19/16 08:00 Resp 20 11/19/16 08:00 BP 151/87 11/19/16 08:00 Pulse Ox 93 L 11/19/16 08:00 Intake & Output 11/18/16 11/19/16 11/19/16 18:59 06:59 18:59 Intake Total 416 240 Output Total 1 Balance 416 239 Weight 91.3 kg 92.9 kg Intake: Oral 416 240 Output: Urine/Stool Mix 1 Other: Voiding Method Toilet Toilet Bedside Commode Bedside Commode # Voids 1 2 0 - Exam Head normocephalic Neck supple Lungs coarse breath sounds with wheezing noted bilaterally Heart regular rate and rhythm S1-S2, no rub or gallop Abdomen is soft nontender nondistended positive bowel sounds no hepatosplenomegaly Extremities +1 edema bilaterally Neuro alert and orientated to 3 - Labs CBC & Chem 7: 11/19/16 05:32 11/19/16 05:32 Labs: Abnormal Lab Results - Last 24 Hours (Table) 11/18/16 11/18/16 11/18/16 Range/Units 06:12 11:31 16:19 BUN (7-17) mg/dL Glucose (74-99) mg/dL POC Glucose (mg/dL) 293 H 326 H (75-99) mg/dL Hemoglobin A1c 7.9 H (4.2-6.1) % Total Protein (6.3-8.2) g/dL Albumin (3.5-5.0) g/dL 11/18/16 11/19/16 11/19/16 Range/Units 21:02 05:32 06:20 BUN 54 H (7-17) mg/dL Glucose 188 H (74-99) mg/dL POC Glucose (mg/dL) 285 H 187 H (75-99) mg/dL Hemoglobin A1c (4.2-6.1) % Total Protein 5.8 L (6.3-8.2) g/dL Albumin 2.8 L (3.5-5.0) g/dL Assessment and Plan Plan: 1. Acute COPD exacerbation. Continue with IV steroids and bronchodilators. Pulmonary following. Changes in the left lower lobe may be chronic in nature as she is status post left lower lung lobectomy secondary to her lung cancer 2. Acute tracheobronchitis: Continue with antibiotics. Per pulmonary doubted pneumonia expected changes are due to her previous lobectomy 3. History of lung cancer status post left lower lobectomy and chemotherapy 4. Severe protein calorie malnutrition: Albumin level 2.8. Start Glucerna 3 times a day with meals 5. Bilateral lower extremity edema possibly related to her low albumin level. Again starting protein supplement also add TERI hose 6. Diabetes mellitus type 2 with hyperglycemia secondary to steroids. Continue oral hypoglycemics and sliding scale coverage 7. History of coronary artery disease with previous angioplasty and stent placement 8. Slight elevation in troponin on admission without any chest pain. Likely of no clinical significance. DVT prophylaxis subcu Lovenox Encouraged to increase activity. We'll await for the pulmonary recommendations.
--- NOTE | 2016-11-19 11:40 | CDI ---
In responding to this query, please exercise your independent professional judgment. The [facility] Coding Staff and Clinical Documentation Specialists appreciate your assistance in clarifying documentation, maintaining compliance with coding guidelines, accurately documenting patients condition and capturing severity of illness. The fact that a question is asked does not imply that any particular answer is desired or expected. Communication forms are a method of clarifying documentation and are not made part of the Legal Health Record. Thank you in advance for your clarification. Last Revision, December 2015 Kenan Schilling [address] [facility] [place] [address] Documentation Clarification Form Date: 11/19/2016 11:32:00 AM From: Odalis Jovi Admit Date: 11/17/2016 9:04:00 PM Patient Name: Arminda Tavarez Visit Number: [id number] Dr. Kulwant Arguello and Juany Nielsen NP History/Risk Factors: COPD Lung Cancer with lobectomy Oxygen Dependent per progress note on 11/18 Clinical Indicators: Vital signs: on 11/17 RR 24, sats 92% on 4L nasal cannula Lung/Breathing assessment: short of breath per ED Treatment: Breathing tx O2 nasal cannula 2-4L IV steroids IV Zithromax, IV Rocephin In your professional opinion, can you please clarify if these findings signify one of the following conditions? o Chronic Respiratory failure unknown type o Chronic Respiratory failure with hypercapnia o Chronic Respiratory failure with hypoxia o Other Diagnosis, please specify o Unable to determine Please document in your progress notes and discharge summary in order to capture severity of illness and risk of mortality. Include clinical findings that support your diagnosis. FYI: Press F11 to launch patient chart. Place X here if this finding has no clinical significance, is not applicable or if you are not able to provide any additional documentation. MOMOD
[2016-11-19 11:55] LABS: Glucose,Whole Blood 77 mg/dL (75-99)
--- NOTE | 2016-11-19 13:26 | P.PN ---
Subjective This is a very pleasant 71-year-old female patient who follows with Dr. Chery as her primary care physician. She has a history of diabetes mellitus , hypertension, hyperlipidemia, memory impairment, COPD and is maintained on Advair and albuterol. She is oxygen dependent. She did smoke for approximately 25 years at 1 pack per day however quit approximately 25 years ago. 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 She does have a history of lung cancer and is status post left lower lobectomy and chemotherapy. This was several years ago and the patient is unclear of the details. She has not had any recurrence of cancer. She presented to the emergency room last evening after a near syncopal episode where her legs got quite weak and she had some altered mental status. She states her held her out by her arms and her grandson called 911 and the patient had suffered from flulike symptoms approximately 2 weeks ago which she states was positive and she was treated with Tamiflu and had recovered. Approximate 1 week ago she felt as though she was starting to have similar symptoms of generalized weakness and fatigue. She also had developed increased shortness of breath. No significant cough or congestion. No chills or night sweats. Her chest x-ray reveals chronic changes in the left lower lobe possible postsurgical changes. Her influenza screen is negative. She did present with a T-max of 102.9. No leukocytosis. Small troponin leak. Blood and urine cultures are pending. She is utilizing 4 L/m per nasal cannula to maintain O2 saturations in the 90s. She is seen again today 11/19/2016 in follow-up on the selective care unit. She is currently sitting up in the chair at the bedside. She is awake and alert in no acute distress. She states she is breathing easier today as compared to yesterday. Not quite back to her baseline. She has been maintained on bronchodilators, Symbicort, steroids and antibiotics in the form of ceftriaxone and azithromycin. Objective - Vital Signs Vital signs: Vital Signs Temp 98.1 F 11/19/16 08:00 Pulse 102 H 11/19/16 11:49 Resp 20 11/19/16 11:35 BP 151/87 11/19/16 08:00 Pulse Ox 93 L 11/19/16 08:00 Intake & Output 11/18/16 11/19/16 11/19/16 18:59 06:59 18:59 Intake Total 416 240 Output Total 1 Balance 416 239 Weight 91.3 kg 92.9 kg 92.9 kg Intake: Oral 416 240 Output: Urine/Stool Mix 1 Other: Voiding Method Toilet Toilet Bedside Commode Bedside Commode # Voids 1 2 0 - Exam GENERAL EXAM: Alert, active, comfortable in no apparent distress. HEAD: Normocephalic. EYES: Normal reaction of pupils, equal size. NOSE: Clear with pink turbinates. THROAT: No erythema or exudates. NECK: No masses, no JVD. CHEST: No chest wall deformity. LUNGS: Equal air entry with faint end expiratory wheeze. CVS: S1 and S2 normal with no audible mumurs, regular rhythm. ABDOMEN: No hepatosplenomegaly, normal bowel sounds, no guarding or rigidity. SPINE: No scoliosis or deformity SKIN: No rashes CENTRAL NERVOUS SYSTEM: No focal deficits, tone is normal in all 4 extremities. Extremities: There is no significant peripheral edema. No clubbing, no cyanosis. Peripheral pulses are intact. - Labs CBC & Chem 7: 11/19/16 05:32 11/19/16 05:32 Labs: Abnormal Lab Results - Last 24 Hours (Table) 11/18/16 11/18/16 11/18/16 Range/Units 06:12 16:19 21:02 BUN (7-17) mg/dL Glucose (74-99) mg/dL POC Glucose (mg/dL) 326 H 285 H (75-99) mg/dL Hemoglobin A1c 7.9 H (4.2-6.1) % Total Protein (6.3-8.2) g/dL Albumin (3.5-5.0) g/dL 11/19/16 11/19/16 Range/Units 05:32 06:20 BUN 54 H (7-17) mg/dL Glucose 188 H (74-99) mg/dL POC Glucose (mg/dL) 187 H (75-99) mg/dL Hemoglobin A1c (4.2-6.1) % Total Protein 5.8 L (6.3-8.2) g/dL Albumin 2.8 L (3.5-5.0) g/dL Assessment and Plan Plan: Impression: #1 Acute exacerbation of severe, oxygen dependent chronic obstructive pulmonary disease. Changes in the left lower lobe may be chronic in nature as she is status post left lower lung lobectomy secondary to cancer. #2 Acute on chronic hypoxic respiratory failure secondary to chronic obstructive pulmonary disease and previous lobectomy. #3 History of lung cancer status post left lower lobectomy, status post chemotherapy. #4 Remote history of chronic nicotine addiction. #5 Recent influenza treated with Tamiflu. Influenza screen on this admission is negative. #6 Diabetes mellitus. #7 Hypertension. #8 Gastroesophageal reflux disease. #9 Memory impairment. Plan: The patient was seen and evaluated by Dr. Arguello. We'll continue with bronchodilators, Symbicort, prednisone, empiric antibiotics in the form of ceftriaxone and azithromycin. She is on heparin subcutaneous for DVT prophylaxis and Protonix for GI prophylaxis. We will increase her activity as tolerated. We'll continue to follow make further recommendations based on her clinical status.
[2016-11-19 16:35] LABS: Glucose,Whole Blood 348 mg/dL (75-99)
[2016-11-19 16:36] VITALS: RESP 18
[2016-11-19 20:48] LABS: Glucose,Whole Blood 280 mg/dL (75-99)
[2016-11-19] MEDS: ATORVASTATIN 40 MG TAB PO SCH (20:53)
[2016-11-19] MEDS: FAMOTIDINE 20 MG TAB PO SCH (20:54)
[2016-11-19] MEDS: AZITHROMYCIN 500 MG in SODIUM CHLORIDE 0.9% 250 ML IVPB SCH (20:55)
[2016-11-19] MEDS: SODIUM CHLORIDE 0.9% 1,000 ML IV SCH (20:56)
[2016-11-20 06:34] LABS: Glucose,Whole Blood 124 mg/dL (75-99)
[2016-11-20 06:43] LABS: ALT 39 U/L (9-52); AST 24 U/L (14-36); Alkaline Phosphatase 54 U/L (38-126); Anion Gap 8 mmol/L; Blood Urea Nitrogen 40 mg/dL (7-17); Calcium 8.8 mg/dL (8.4-10.2); Carbon Dioxide 28 mmol/L (22-30); Chloride 103 mmol/L (98-107); Glucose 144 mg/dL (74-99); Non-African American GFR(MDRD) >60 (>60 ml/min/1.73 sqM); Potassium 4.2 mmol/L (3.5-5.1); Sodium 139 mmol/L (137-145); Total Bilirubin 0.2 mg/dL (0.2-1.3); Total Protein 5.9 g/dL (6.3-8.2)
[2016-11-20 06:53] LABS: Basophils % (A) 0 %; CH 28.3; CHCM 32.7; Eosinophils % (A) 0 %; HCT 36.8 % (34.0-46.0); HDW 3.13; HGB 11.9 gm/dL (11.4-16.0); Luc # (Auto) 0.18; Luc % (Auto) 3; Lymphocytes # (A) 1.8 k/uL (1.0-4.8); Lymphocytes % (A) 26 %; MCHC 32.3 g/dL (31.0-37.0); MCV 86.8 fL (80.0-100.0); Mean Platelet Volume 6.6; Monocytes # (A) 0.5 k/uL (0-1.0); Monocytes % (A) 7 %; Neutrophils # (A) 4.4 k/uL (1.3-7.7); Neutrophils % (A) 64 %; RBC 4.25 m/uL (3.80-5.40); RDW 14.4 % (11.5-15.5); WBC 6.9 k/uL (3.8-10.6); WBC (Perox) 8.25
[2016-11-20 07:12] LABS: Manual Review Performed; Toxic Granulation Present
[2016-11-20] MEDS: INSULIN LISPRO (humaLOG) 300 UNIT/3 ML VIAL SQ SCH ×4 (08:01→12:29)
[2016-11-20] MEDS: PANTOPRAZOLE 40 MG TABLET PO SCH (08:01)
[2016-11-20] MEDS: metFORMIN 500 MG TAB PO SCH (08:01)
[2016-11-20] MEDS: GLIMEPIRIDE 4 MG TAB PO SCH (08:02)
[2016-11-20] MEDS: glipiZIDE 5 MG TAB PO SCH (08:02)
[2016-11-20] MEDS: SYMBICORT 80-4.5 MCG INHALER INHALATION SCH (08:37)
[2016-11-20] MEDS: IPRATROPIUM-ALBUTEROL 3 ML NEB INHALATION SCH ×2 (08:37→12:41)
[2016-11-20] MEDS: HEPARIN SODIUM,PORCINE 5,000 UNIT/ML 1 ML VIAL SQ SCH (08:39)
[2016-11-20] MEDS: predniSONE 20 MG TAB PO SCH (08:40)
[2016-11-20] MEDS: GABAPENTIN 400 MG CAP PO SCH (08:40)
[2016-11-20] MEDS: CHOLECALCIFEROL 1,000 UNIT TAB PO SCH (08:41)
[2016-11-20] MEDS: HYDROCHLOROTHIAZIDE 12.5 MG CAP PO SCH (08:42)
[2016-11-20] MEDS: CYANOCOBALAMIN 500 MCG TAB PO SCH (08:42)
[2016-11-20] MEDS: LOSARTAN 50 MG TAB PO SCH (08:42)
[2016-11-20] MEDS: METOPROLOL SUCCINATE (ER) 25 MG TAB.ER.24H PO SCH (08:43)
[2016-11-20 11:56] LABS: Glucose,Whole Blood 64 mg/dL (75-99)
--- NOTE | 2016-11-20 13:19 | P.DS ---
Providers Date of admission: 11/17/16 21:04 Expected date of discharge: 11/20/16 Attending physician: Ramonita Sorenson Consults: 11/18/16 13:08 Consult Physician Routine Consulting Provider: Kulwant Arguello Consult Reason/Comments: pneumonia Do you want consulting provider notified?: Yes Primary care physician: Mariaa Chery Hospital Course: Discharge diagnosis 1. Acute COPD exacerbation. Continue with IV steroids and bronchodilators. Pulmonary following. Changes in the left lower lobe may be chronic in nature as she is status post left lower lung lobectomy secondary to her lung cancer 2. Acute tracheobronchitis: Continue with antibiotics. Per pulmonary doubted pneumonia expected changes are due to her previous lobectomy 3. History of lung cancer status post left lower lobectomy and chemotherapy 4. Severe protein calorie malnutrition: Albumin level 2.8. Start Glucerna 3 times a day with meals 5. Bilateral lower extremity edema possibly related to her low albumin level. Again starting protein supplement also add TERI hose. Has shown improvement 6. Diabetes mellitus type 2 with hyperglycemia secondary to steroids. Continue oral hypoglycemics and sliding scale coverage 7. History of coronary artery disease with previous angioplasty and stent placement 8. Slight elevation in troponin on admission without any chest pain. Likely of no clinical significance. Hospital course This is a 71-year-old female presented with fever, cough and generalized weakness. She was found have evidence of a COPD exacerbation and bronchitis. Chest x-ray had showed concerns of about a possible pneumonia. Evaluated by pulmonary service and they felt that those are chronic changes due to her previous lobectomy for her lung cancer. Patient was placed on IV steroids IV antibiotics and bronchodilators. Patient's symptoms did improve. She is cleared by pulmonary service for discharge. She'll continue Ceftin for 10 more days and prednisone taper. We'll follow-up with pulmonary service. Patient did have elevated blood pressures during this admission Norvasc was added to her regimen of blood pressure medications. Also note she did have one episode of hypoglycemia patient does check her blood sugars regularly and will continue to have her monitor blood sugars at home and adjust her insulin accordingly. Patient Condition at Discharge: Stable Plan - Discharge Summary New Discharge Prescriptions: Cefuroxime Axetil [Ceftin] 500 mg PO BID #20 tab amLODIPine BESYLATE [Norvasc] 5 mg PO DAILY #30 tablet predniSONE 0 mg PO DIRECTED #30 tab Discharge Medication List Atorvastatin [Lipitor] 40 mg PO HS 11/17/16 [History] Cholecalciferol [Vitamin D3] 4,000 unit PO DAILY 11/17/16 [History] Cyanocobalamin [Vitamin B-12] 500 mcg PO DAILY 11/17/16 [History] Fluticasone/Salmeterol [Advair 250-50 Diskus] 1 puff INHALATION RT-BID 11/17/16 [History] Gabapentin 800 mg PO TID 11/17/16 [History] Glimepiride [Amaryl] 4 mg PO AC-BID 11/17/16 [History] Insulin Aspart [NovoLOG Flexpen] 20 units SQ AC-TID 11/17/16 [History] Insulin Degludec [Tresiba Flextouch U-200] 88 unit SQ DAILY 11/17/16 [History] Insulin Detemir [Levemir] 80 unit SQ DAILY 11/17/16 [History] Losartan/Hydrochlorothiazide [Losartan-Hctz 100-12.5 mg Tab] 1 tab PO DAILY 04/26 [History] Meclizine [Antivert] 12.5 mg PO TID PRN 11/17/16 [History] Meloxicam [Mobic] 7.5 mg PO HS 11/17/16 [History] Metoprolol Succinate [Toprol XL] 25 mg PO DAILY 11/17/16 [History] Nizatidine [Axid] 150 mg PO HS 11/17/16 [History] Omeprazole 20 mg PO DAILY 11/17/16 [History] glyBURIDE/METFORMIN HCL [glyBURIDE/METFORMIN HCL 5-500 mg] 1 tab PO BID [History] Cefuroxime Axetil [Ceftin] 500 mg PO BID #20 tab 11/20/16 [Rx] amLODIPine BESYLATE [Norvasc] 5 mg PO DAILY #30 tablet 11/20/16 [Rx] predniSONE 0 mg PO DIRECTED #30 tab 11/20/16 [Rx] Follow up Appointment(s)/Referral(s): Mariaa Chery DO [Primary Care Provider] - 1 Week Kulwant Arguello MD [STAFF PHYSICIAN] - 1 Week Activity/Diet/Wound Care/Special Instructions: Diet: cardiac, diabetic Activity: as tolerated Discharge Disposition: HOME SELF-CARE
[2016-11-20 14:25] VITALS: BP 176/78; PULSE 90; TEMP 98.2
--- NOTE | 2016-11-20 17:39 | P.PN ---
Subjective Principal diagnosis: Acute exacerbation of COPD This is a very pleasant 71-year-old female patient who follows with Dr. Chery as her primary care physician. She has a history of diabetes mellitus , hypertension, hyperlipidemia, memory impairment, COPD and is maintained on Advair and albuterol. She is oxygen dependent. She did smoke for approximately 25 years at 1 pack per day however quit approximately 25 years ago. She has not followed with a inside sales account manager. She does have a history of lung cancer and is status post left lower lobectomy and chemotherapy. This was several years ago and the patient is unclear of the details. She has not had any recurrence of cancer. She presented to the emergency room last evening after a near syncopal episode where her legs got quite weak and she had some altered mental status. She states her held her out by her arms and her grandson called 911 and the patient had suffered from flulike symptoms approximately 2 weeks ago which she states was positive and she was treated with Tamiflu and had recovered. Approximate 1 week ago she felt as though she was starting to have similar symptoms of generalized weakness and fatigue. She also had developed increased shortness of breath. No significant cough or congestion. No chills or night sweats. Her chest x-ray reveals chronic changes in the left lower lobe possible postsurgical changes. Her influenza screen is negative. She did present with a T-max of 102.9. No leukocytosis. Small troponin leak. Blood and urine cultures are pending. She is utilizing 4 L/m per nasal cannula to maintain O2 saturations in the 90s. She is seen again today 11/19/2016 in follow-up on the selective care unit. She is currently sitting up in the chair at the bedside. She is awake and alert in no acute distress. She states she is breathing easier today as compared to yesterday. Not quite back to her baseline. She has been maintained on bronchodilators, Symbicort, steroids and antibiotics in the form of ceftriaxone and azithromycin. Patient was seen again today on 11/20/2016, doing quite well, patient would like to be discharged home. No cough no wheezing no shortness of breath. Objective - Vital Signs Vital signs: Vital Signs Temp 98.2 F 11/20/16 12:00 Pulse 81 11/20/16 12:53 Resp 18 11/20/16 12:00 BP 176/78 11/20/16 12:00 Pulse Ox 89 L 11/20/16 12:00 Intake & Output 11/19/16 11/20/16 11/20/16 18:59 06:59 18:59 Intake Total 053 243 7602 Output Total 800 400 Balance -898 427 3711 Weight 92.9 kg 93.2 kg Intake: IV 120 1362 Invasive Line 2 1362 Sodium Chloride 0.9% 1, 120 000 ml @ 20 mls/hr IV . Q24H BRITTANI Rx#:[id number] Oral 240 600 960 Output: Urine 800 400 Other: Voiding Method Toilet Toilet Bedside Commode Bedside Commode # Voids 2 1 2 # Bowel Movements 0 0 - Exam Physical Exam HEENT:[Neck is supple.] [No neck masses.] [No thyromegaly.] [No JVD.] Chest: [Clear throughout, no crackles, no rhonchi, no wheezes.] Cardiac Exam: [Normal S1 and S2, no S3 gallop, no murmur.] Abdomen: [Soft, nontender, no megaly, no rebound, no guarding, normal bowel sounds.] Extremities: [No clubbing, no edema, no cyanosis.] Neurological Exam: [No focal neurologic deficit.] - Labs CBC & Chem 7: 11/20/16 05:41 11/20/16 05:41 Labs: Abnormal Lab Results - Last 24 Hours (Table) 11/19/16 11/20/16 11/20/16 Range/Units 20:47 05:41 06:33 BUN 40 H (7-17) mg/dL Glucose 144 H (74-99) mg/dL POC Glucose (mg/dL) 280 H 124 H (75-99) mg/dL Total Protein 5.9 L (6.3-8.2) g/dL Albumin 2.8 L (3.5-5.0) g/dL 11/20/16 Range/Units 11:51 BUN (7-17) mg/dL Glucose (74-99) mg/dL POC Glucose (mg/dL) 64 L (75-99) mg/dL Total Protein (6.3-8.2) g/dL Albumin (3.5-5.0) g/dL Assessment and Plan Plan: #1 Acute exacerbation of severe, oxygen dependent chronic obstructive pulmonary disease. Changes in the left lower lobe may be chronic in nature as she is status post left lower lung lobectomy secondary to cancer. #2 Acute on chronic hypoxic respiratory failure secondary to chronic obstructive pulmonary disease and previous lobectomy. #3 History of lung cancer status post left lower lobectomy, status post chemotherapy. #4 Remote history of chronic nicotine addiction. #5 Recent influenza treated with Tamiflu. Influenza screen on this admission is negative. #6 Diabetes mellitus. #7 Hypertension. #8 Gastroesophageal reflux disease. #9 Memory impairment. Recommendation: Agree with discharge planning, patient is to be discharged home on Zithromax, Ceftin, course of prednisone burst and taper, and follow-up with us on outpatient basis in the next 1 week. Time with Patient: Less than 30
== END 2016-11-20 14:53 | disposition home or self-care (01) | DRG 190 ==
LOC: EC 18:42 → 6SEL 21:04
PROVIDERS: ADMIT Internal Medicine; ATTEND Internal Medicine
DX: J44.0 Chronic obstructive pulmonary disease with (acute) lower respiratory infection (principal); E43 Unspecified severe protein-calorie malnutrition; J96.11 Chronic respiratory failure with hypoxia; E11.649 Type 2 diabetes mellitus with hypoglycemia without coma; E11.65 Type 2 diabetes mellitus with hyperglycemia; J20.9 Acute bronchitis, unspecified; J44.1 Chronic obstructive pulmonary disease with (acute) exacerbation; E78.5 Hyperlipidemia, unspecified; I10 Essential (primary) hypertension; I25.10 Atherosclerotic heart disease of native coronary artery without angina pectoris; K21.9 Gastro-esophageal reflux disease without esophagitis; T38.0X5A Adverse effect of glucocorticoids and synthetic analogues, initial encounter; Z79.4 Long term (current) use of insulin; Z79.899 Other long term (current) drug therapy; Z85.118 Personal history of other malignant neoplasm of bronchus and lung; Z87.891 Personal history of nicotine dependence; Z95.5 Presence of coronary angioplasty implant and graft; Z88.5 Allergy status to narcotic agent; Z68.30 Body mass index [BMI] 30.0-30.9, adult
CPT/HCPCS: 36415; 71020; 80053; 81001; 82009; 82533; 82550; 82553; 83036; 83605; 83880; 84484; 85025; 85610; 85730; 87040; 87086; 87502; 93005; 94640; 94644; 96361; 96365; 96375; 99285

== ENCOUNTER 2017-07-22 12:01 | Inpatient (IN) | payer MEDICARE, OTHER ==
[2017-07-22] MEDS ORDERED: methylPREDNISolone SOD SUCCI 125 MG/2 ML VIAL IV STA (12:06)
[2017-07-22] MEDS ORDERED: IPRATROPIUM-ALBUTEROL 3 ML NEB INHALATION STA (12:06)
--- NOTE | 2017-07-22 12:14 | ED ---
General Adult HPI - General Chief complaint: Shortness of Breath Stated complaint: SOB Time Seen by Provider: 07/22/17 12:03 Source: patient, EMS, RN notes reviewed Mode of arrival: EMS Limitations: no limitations - History of Present Illness Initial comments: Patient is a pleasant 71-year-old female presenting to the emergency department complaining of shortness of breath. Symptoms are somewhat chronic however worse the past couple of days. Patient has a mild nonproductive cough. Patient does have similar symptoms previously associated with COPD. No fevers. No chest pain. Patient does have some mild leg swelling which is somewhat new for her. - Related Data Home Medications Medication Instructions Recorded Confirmed Atorvastatin [Lipitor] 40 mg PO HS 11/17/16 11/17/16 Cholecalciferol [Vitamin D3] 4,000 unit PO DAILY 11/17/16 11/17/16 Cyanocobalamin [Vitamin B-12] 500 mcg PO DAILY 11/17/16 11/17/16 Fluticasone/Salmeterol [Advair 1 puff INHALATION RT-BID 11/17/16 11/17/16 250-50 Diskus] Gabapentin 800 mg PO TID 11/17/16 11/17/16 Glimepiride [Amaryl] 4 mg PO AC-BID 11/17/16 11/17/16 Insulin Aspart [NovoLOG Flexpen] 20 units SQ AC-TID 11/17/16 11/17/16 Insulin Degludec [Tresiba 88 unit SQ DAILY 11/17/16 11/17/16 Flextouch U-200] Insulin Detemir [Levemir] 80 unit SQ DAILY 11/17/16 11/17/16 Losartan/Hydrochlorothiazide 1 tab PO DAILY 11/17/16 11/17/16 [Losartan-Hctz 100-12.5 mg Tab] Meclizine [Antivert] 12.5 mg PO TID PRN 11/17/16 11/17/16 Meloxicam [Mobic] 7.5 mg PO HS 11/17/16 11/17/16 Metoprolol Succinate [Toprol XL] 25 mg PO DAILY 11/17/16 11/17/16 Nizatidine [Axid] 150 mg PO HS 11/17/16 11/17/16 Omeprazole 20 mg PO DAILY 11/17/16 11/17/16 glyBURIDE/METFORMIN HCL 1 tab PO BID 11/17/16 11/17/16 [glyBURIDE/METFORMIN HCL 5-500 mg] Previous Rx's Medication Instructions Recorded Cefuroxime Axetil [Ceftin] 500 mg PO BID #20 tab 11/20/16 amLODIPine BESYLATE [Norvasc] 5 mg PO DAILY #30 tablet 11/20/16 predniSONE 0 mg PO DIRECTED #30 tab 11/20/16 Allergies Allergy/AdvReac Type Severity Reaction Status Date / Time codeine Allergy Unknown Verified 07/22/17 12:05 Review of Systems ROS Statement: Those systems with pertinent positive or pertinent negative responses have been documented in the HPI. ROS Other: All systems not noted in ROS Statement are negative. Constitutional: Denies: fever Eyes: Denies: eye pain ENT: Denies: ear pain Respiratory: Reports: cough, dyspnea Cardiovascular: Denies: chest pain Endocrine: Reports: fatigue Gastrointestinal: Denies: abdominal pain Genitourinary: Denies: dysuria Musculoskeletal: Denies: back pain Skin: Denies: rash Neurological: Denies: weakness Past Medical History Past Medical History: COPD, Diabetes Mellitus, Hyperlipidemia, Hypertension, Memory Impairment Additional Past Medical History / Comment(s): lung cancer, tubal ligation, spinal meningitis 1970, wears 2L o2 at night History of Any Multi-Drug Resistant Organisms: None Reported Additional Past Surgical History / Comment(s): left lower lobe lung removed, right shoulder rotator cuff Past Anesthesia/Blood Transfusion Reactions: No Reported Reaction Past Psychological History: No Psychological Hx Reported Smoking Status: Former smoker Past Alcohol Use History: None Reported Past Drug Use History: None Reported - Past Family History Mother Family Medical History: No Reported History General Exam Limitations: no limitations General appearance: alert Head exam: Present: atraumatic Eye exam: Present: normal appearance, PERRL ENT exam: Present: normal oropharynx Neck exam: Present: normal inspection Respiratory exam: Present: respiratory distress, wheezes, decreased breath sounds Cardiovascular Exam: Present: tachycardia, irregular rhythm Expanded Peripheral pulses: 2+: Radial (R), Radial (L), Dorsalis Pedis (R), Dorsalis Pedis (L) GI/Abdominal exam: Present: soft. Absent: tenderness Extremities exam: Present: pedal edema (+1 bilaterally). Absent: calf tenderness Neurological exam: Present: alert Psychiatric exam: Present: normal affect, normal mood Skin exam: Present: normal color Course Vital Signs 07/22/17 07/22/17 07/22/17 12:05 12:12 12:18 Temperature 99.1 F Pulse Rate 120 H 115 H Respiratory 28 H 28 H Rate Blood Pressure 172/83 179/84 O2 Sat by Pulse 91 L 86 L Oximetry 07/22/17 07/22/17 12:22 12:32 Temperature Pulse Rate 62 62 Respiratory Rate Blood Pressure O2 Sat by Pulse Oximetry - Reevaluation(s) Reevaluation #1: 07/22/17 13:27 Patient reevaluated and significantly improved. Patient not in respiratory distress at this time. Chest x-ray has findings concerning for possible pneumonia and possible CHF. BNP is somewhat elevated. Clinically patient presents mostly has a COPD patient. With possible pneumonia patient will be treated with antibiotics and concern for pneumonia makes patient a candidate for sepsis criteria. Lactic acid and blood culture will be ordered. Case was discussed in detail with Dr. Sorenson, who will admit for Dr. Chery. Cardiology will be consult at for A. fib and possible CHF. Patient has previously seen Dr. Arguello and he will also be consulted. EKG Findings - EKG Comments: EKG Findings:: A. fib with RVR, rate 120. QRS 94. QT 288. QTC 407. Normal axis. Incomplete right bundle-branch block. Nonspecific ST-T. Medical Decision Making - Lab Data Result diagrams: 07/22/17 12:14 07/22/17 12:14 Lab Results 07/22/17 07/22/17 07/22/17 Range/Units 12:14 12:14 12:14 WBC 9.8 (3.8-10.6) k/uL RBC 4.98 (3.80-5.40) m/uL Hgb 13.4 (11.4-16.0) gm/dL Hct 43.6 (34.0-46.0) % MCV 87.6 (80.0-100.0) fL MCH 26.9 (25.0-35.0) pg MCHC 30.7 L (31.0-37.0) g/dL RDW 15.7 H (11.5-15.5) % Plt Count 240 (150-450) k/uL Neutrophils % 86 % Lymphocytes % 8 % Monocytes % 4 % Eosinophils % 1 % Basophils % 0 % Neutrophils # 8.4 H (1.3-7.7) k/uL Lymphocytes # 0.8 L (1.0-4.8) k/uL Monocytes # 0.4 (0-1.0) k/uL Eosinophils # 0.1 (0-0.7) k/uL Basophils # 0.0 (0-0.2) k/uL Hypochromasia Moderate PT (9.0-12.0) sec INR (<1.2) APTT (22.0-30.0) sec Sodium 138 (137-145) mmol/L Potassium 5.1 (3.5-5.1) mmol/L Chloride 100 (98-107) mmol/L Carbon Dioxide 29 (22-30) mmol/L Anion Gap 9 mmol/L BUN 21 H (7-17) mg/dL Creatinine 0.66 (0.52-1.04) mg/dL Est GFR (MDRD) Af Amer >60 (>60 ml/min/1.73 sqM) Est GFR (MDRD) Non-Af >60 (>60 ml/min/1.73 sqM) Glucose 61 L (74-99) mg/dL Calcium 8.8 (8.4-10.2) mg/dL Total Bilirubin 0.5 (0.2-1.3) mg/dL AST 31 (14-36) U/L ALT 40 (9-52) U/L Alkaline Phosphatase 66 (38-126) U/L Total Creatine Kinase 69 (30-135) U/L CK-MB (CK-2) 2.0 (0.0-2.4) ng/mL CK-MB (CK-2) Rel Index 2.9 Troponin I 0.019 (0.000-0.034) ng/mL NT-Pro-B Natriuret Pep pg/mL Total Protein 6.8 (6.3-8.2) g/dL Albumin 3.6 (3.5-5.0) g/dL 07/22/17 07/22/17 Range/Units 12:14 12:14 WBC (3.8-10.6) k/uL RBC (3.80-5.40) m/uL Hgb (11.4-16.0) gm/dL Hct (34.0-46.0) % MCV (80.0-100.0) fL MCH (25.0-35.0) pg MCHC (31.0-37.0) g/dL RDW (11.5-15.5) % Plt Count (150-450) k/uL Neutrophils % % Lymphocytes % % Monocytes % % Eosinophils % % Basophils % % Neutrophils # (1.3-7.7) k/uL Lymphocytes # (1.0-4.8) k/uL Monocytes # (0-1.0) k/uL Eosinophils # (0-0.7) k/uL Basophils # (0-0.2) k/uL Hypochromasia PT 10.8 (9.0-12.0) sec INR 1.1 (<1.2) APTT 23.2 (22.0-30.0) sec Sodium (137-145) mmol/L Potassium (3.5-5.1) mmol/L Chloride (98-107) mmol/L Carbon Dioxide (22-30) mmol/L Anion Gap mmol/L BUN (7-17) mg/dL Creatinine (0.52-1.04) mg/dL Est GFR (MDRD) Af Amer (>60 ml/min/1.73 sqM) Est GFR (MDRD) Non-Af (>60 ml/min/1.73 sqM) Glucose (74-99) mg/dL Calcium (8.4-10.2) mg/dL Total Bilirubin (0.2-1.3) mg/dL AST (14-36) U/L ALT (9-52) U/L Alkaline Phosphatase (38-126) U/L Total Creatine Kinase (30-135) U/L CK-MB (CK-2) (0.0-2.4) ng/mL CK-MB (CK-2) Rel Index Troponin I (0.000-0.034) ng/mL NT-Pro-B Natriuret Pep 2680 pg/mL Total Protein (6.3-8.2) g/dL Albumin (3.5-5.0) g/dL - Radiology Data Radiology results: image reviewed (Chest x-ray shows cardiomegaly. Possible pulmonary venous hypertension and interstitial edema. Possible left lower lobe atelectasis versus pneumonia.) Critical Care Time Critical Care Time: Yes Total Critical Care Time: 34 Disposition Clinical Impression: Pneumonia, COPD exacerbation, Sepsis, CHF (congestive heart failure), Atrial fibrillation with RVR Disposition: ADMITTED IP TO THIS HOSP Referrals: Mariaa Chery DO [Primary Care Provider] - 1-2 days Decision Time: 13:29
[2017-07-22 12:24] LABS: Basophils % (A) 0 %; CH 27.2; CHCM 31.2; Eosinophils # (A) 0.1 k/uL (0-0.7); Eosinophils % (A) 1 %; HCT 43.6 % (34.0-46.0); HDW 3.23; HGB 13.4 gm/dL (11.4-16.0); Hypochromasia Moderate; Luc # (Auto) 0.12; Luc % (Auto) 1; Lymphocytes # (A) 0.8 k/uL (1.0-4.8); Lymphocytes % (A) 8 %; MCH 26.9 pg (25.0-35.0); MCHC 30.7 g/dL (31.0-37.0); MCV 87.6 fL (80.0-100.0); Mean Platelet Volume 7.3; Monocytes # (A) 0.4 k/uL (0-1.0); Monocytes % (A) 4 %; Neutrophils # (A) 8.4 k/uL (1.3-7.7); Neutrophils % (A) 86 %; RBC 4.98 m/uL (3.80-5.40); RDW 15.7 % (11.5-15.5); WBC 9.8 k/uL (3.8-10.6); WBC (Perox) 10.21
[2017-07-22 12:35] LABS: INR 1.1 (<1.2); Partial Thromboplastin Time 23.2 sec (22.0-30.0); Prothrombin Time 10.8 sec (9.0-12.0)
[2017-07-22 12:46] LABS: ALT 40 U/L (9-52); AST 31 U/L (14-36); Alkaline Phosphatase 66 U/L (38-126); Anion Gap 9 mmol/L; Blood Urea Nitrogen 21 mg/dL (7-17); Calcium 8.8 mg/dL (8.4-10.2); Carbon Dioxide 29 mmol/L (22-30); Chloride 100 mmol/L (98-107); Glucose 61 mg/dL (74-99); Non-African American GFR(MDRD) >60 (>60 ml/min/1.73 sqM); Potassium 5.1 mmol/L (3.5-5.1); Sodium 138 mmol/L (137-145); Total Bilirubin 0.5 mg/dL (0.2-1.3); Total Protein 6.8 g/dL (6.3-8.2)
[2017-07-22 12:58] LABS: Troponin I 0.019 ng/mL (0.000-0.034)
--- NOTE | 2017-07-22 13:05 | XR ---
EXAMINATION TYPE: XR chest 1V portable DATE OF EXAM: 07/22/2017 COMPARISON: Prior chest x-ray 11/17/2016 HISTORY: Dyspnea TECHNIQUE: Single frontal view of the chest is obtained. FINDINGS: Patient is rotated. Heart is enlarged. Suspect there is retrocardiac density. Central vasc ularity is somewhat prominent. Interstitium is increased. IMPRESSION: Findings are similar to prior exam. Cardiomegaly. Correlate for possible pulmonary venou s hypertension and interstitial edema. Possible left lower lobe atelectasis versus pneumonia, effusio n versus edema.
[2017-07-22] MEDS ORDERED: PNEUMONIA PROTOCOL UTILIZED 1 EACH MISC PO PRN (13:29)
[2017-07-22] MEDS ORDERED: AZITHROMYCIN 500 MG in SODIUM CHLORIDE 0.9% 250 ML IVPB STA (13:29)
[2017-07-22] MEDS ORDERED: IPRATROPIUM-ALBUTEROL 3 ML NEB INHALATION PRN (13:29)
[2017-07-22] MEDS ORDERED: FUROSEMIDE 10 MG/ML 4 ML VIAL IV STA (13:35)
[2017-07-22] MEDS ORDERED: ASPIRIN 325 MG TAB PO STA (13:36)
[2017-07-22] MEDS ORDERED: HEPARIN SODIUM,PORCINE 5,000 UNIT/ML 1 ML VIAL IV PRN (13:37)
[2017-07-22] MEDS ORDERED: HEPARIN SODIUM,PORCINE 5,000 UNIT/ML 1 ML VIAL IV ONE (13:37)
[2017-07-22] MEDS ORDERED: DILTIAZEM 125 MG in SODIUM CHLORIDE 0.9% 100 ML IV ONE (13:38)
[2017-07-22] MEDS: HEPARIN SODIUM,PORCINE/D5W PMX 25,000 UNIT in DEXTROSE/WATER 1 500ML.BAG IV SCH (13:56)
[2017-07-22 15:07] LABS: Glucose,Whole Blood 55 mg/dL (75-99)
[2017-07-22] MEDS: IPRATROPIUM-ALBUTEROL 3 ML NEB INHALATION SCH ×2 (15:23→19:58)
[2017-07-22 15:38] LABS: Glucose,Whole Blood 59 mg/dL (75-99)
[2017-07-22 15:39] LABS: Glucose,Whole Blood 74 mg/dL (75-99)
--- NOTE | 2017-07-22 16:21 | P.HPIM ---
History of Present Illness H&P Date: 07/22/17 Chief Complaint: Worsening shortness of breath This is a 71-year-old female, patient of [facility]. She has a known past medical history of lung cancer with a previous left lower lobectomy and chemotherapy, diabetes mellitus, hypertension, coronary artery disease with previous cardiac stent, hyperlipidemia, COPD and bronchitis. Patient states over the last 2 days she's had worsening shortness of breath. She's also been having a mild cough which is productive at times. She has noted to have shortness of breath with walking a short distance. She denies any chest pain, nausea or vomiting, bowel movement changes or urinary symptoms. She denies any fevers chills or sweats. Patient was found to have atrial fibrillation with a rapid ventricular response on admission. Heart rate was 120. She was started on a Cardizem drip and IV heparin. Cardiology has been consulted. Patient was also started on IV Solu-Medrol for an acute COPD exacerbation. Also placed on antibiotics for questionable pneumonia versus bronchitis. She also had evidence of congestive heart failure BNP was elevated 2680. She has some bilateral lower extremity edema with a chest x-ray showing cardiomegaly and to correlate for possible pulmonary venous hypertension and interstitial edema. Patient did receive 1 dose of IV Lasix in the emergency room. Oxygen saturation on admission was at 86% and has gone up to 94% with 3 L. He has also been hypoglycemic with a blood sugar of 55. Patient reports that she has not taken her home medications state or eating anything today. This is likely contributing to patient's low blood sugar. Patient does not have a history of atrial fibrillation. Cardiology and pulmonary service have been consulted. Review of Systems Please refer to HPI otherwise unremarkable Past Medical History Past Medical History: Cancer, COPD, Diabetes Mellitus, Hyperlipidemia, Hypertension, Memory Impairment Additional Past Medical History / Comment(s): lung cancer, tubal ligation, spinal meningitis 1970, wears o2 at hs not sure how many liters(past hx from nov stated 2 liters), cpap used, History of Any Multi-Drug Resistant Organisms: None Reported Past Surgical History: Heart Catheterization With Stent, Tubal Ligation Additional Past Surgical History / Comment(s): left lower lobe lung removed, right shoulder rotator cuff Past Anesthesia/Blood Transfusion Reactions: No Reported Reaction Additional Past Anesthesia/Blood Transfusion Reaction / Comment(s): clausterphobia Date of Last Stent Placement:: unk Smoking Status: Former smoker - Past Family History Mother History Unknown: Yes Family Medical History: No Reported History Father Family Medical History: Diabetes Mellitus Medications and Allergies Home Medications Medication Instructions Recorded Confirmed Type Atorvastatin [Lipitor] 40 mg PO HS 11/17/16 07/22/17 History Cholecalciferol [Vitamin D3] 4,000 unit PO DAILY 11/17/16 07/22/17 History Cyanocobalamin [Vitamin B-12] 500 mcg PO DAILY 11/17/16 07/22/17 History Fluticasone/Salmeterol [Advair 1 puff INHALATION RT-BID 11/17/16 07/22/17 History 250-50 Diskus] Gabapentin 800 mg PO TID 11/17/16 07/22/17 History Glimepiride [Amaryl] 4 mg PO AC-BID 11/17/16 07/22/17 History Insulin Aspart [NovoLOG Flexpen] 20 units SQ AC-TID 11/17/16 07/22/17 History Insulin Degludec [Tresiba 98 unit SQ DAILY 11/17/16 07/22/17 History Flextouch U-200] Losartan/Hydrochlorothiazide 1 tab PO DAILY 11/17/16 07/22/17 History [Losartan-Hctz 100-12.5 mg Tab] Meloxicam [Mobic] 7.5 - 15 mg PO HS 11/17/16 07/22/17 History Metoprolol Succinate [Toprol XL] 25 mg PO DAILY 11/17/16 07/22/17 History Nizatidine [Axid] 150 mg PO HS 11/17/16 07/22/17 History Omeprazole 20 mg PO BID 11/17/16 07/22/17 History Albuterol Inhaler [Ventolin Hfa 1 puff INHALATION RT-Q4H PRN 07/22/17 07/22/17 History Inhaler] Albuterol Nebulized [Ventolin 2.5 mg INHALATION RT-QID 07/22/17 07/22/17 History Nebulized] Furosemide [Lasix] 20 mg PO DAILY 07/22/17 07/22/17 History Loratadine [Claritin] 10 mg PO DAILY 07/22/17 07/22/17 History metFORMIN HCL [Glucophage] 500 mg PO BID 07/22/17 07/22/17 History Allergies Allergy/AdvReac Type Severity Reaction Status Date / Time codeine Allergy Unknown Verified 07/22/17 12:05 Physical Exam Vitals: Vital Signs Temp Pulse Resp BP Pulse Ox 07/22/17 15:32 64 07/22/17 15:24 60 07/22/17 14:09 98.8 F 07/22/17 14:02 111 H 18 166/89 94 L 07/22/17 12:32 62 07/22/17 12:22 62 07/22/17 12:18 115 H 179/84 86 L 07/22/17 12:12 28 H 07/22/17 12:05 99.1 F 120 H 28 H 172/83 91 L Intake and Output 07/22/17 07/22/17 07/22/17 06:59 14:59 22:59 Output Total 200 Balance -200 Output: Urine 200 Other: # Bowel Movements 1 Weight 99.79 kg Patient Weight 07/23/17 06:59 Weight 99.79 kg Head normocephalic Neck supple Lungs no breath sounds noted left lower lobe. Patient has wheezing in the upper lobes and anterior lung castro. Right lower lobe diminished breath sounds Heart irregular rhythm tachycardic. A. fib on monitor Abdomen is soft nontender nondistended positive bowel sounds no hepatosplenomegaly Extremities edema present bilateral lower extremities Neuro alert and orientated to 3, appears slow and answering questions Results CBC & Chem 7: 07/22/17 12:14 07/22/17 12:14 Labs: Abnormal Lab Results - Last 24 Hours (Table) 07/22/17 07/22/17 07/22/17 Range/Units 12:14 12:14 14:59 MCHC 30.7 L (31.0-37.0) g/dL RDW 15.7 H (11.5-15.5) % Neutrophils # 8.4 H (1.3-7.7) k/uL Lymphocytes # 0.8 L (1.0-4.8) k/uL BUN 21 H (7-17) mg/dL Glucose 61 L (74-99) mg/dL POC Glucose (mg/dL) 55 L (75-99) mg/dL 07/22/17 07/22/17 Range/Units 15:14 15:38 MCHC (31.0-37.0) g/dL RDW (11.5-15.5) % Neutrophils # (1.3-7.7) k/uL Lymphocytes # (1.0-4.8) k/uL BUN (7-17) mg/dL Glucose (74-99) mg/dL POC Glucose (mg/dL) 59 L 74 L (75-99) mg/dL Assessment and Plan Plan: 1. Acute hypoxic respiratory failure: multifactorial likely related to COPD exacerbation, atrial fibrillation with rapid ventricular response, bronchitis and CHF exacerbation 2. Acute COPD exacerbation patient is been placed on IV Solu-Medrol with bronchodilators. Pulmonary service has been consulted 3. Acute tracheobronchitis: Patient has been started on Rocephin and azithromycin. Pulmonary service consulted 4. Atrial fibrillation with rapid ventricular response and new onset: Patient is been placed on IV Cardizem drip and IV heparin. Cardiology has been consulted 5. Acute CHF exacerbation: Check echo. Patient did receive 1 dose of IV Lasix. Start IV Lasix 40 mg every 8 hours 6. History of lung cancer status post left lower lobectomy and chemotherapy 7. Diabetes mellitus type 2 with hypoglycemia: We'll place patient on sliding scale coverage and monitor closely. hold oral hypoglycemics. Resume Tresiba 8. History of coronary artery disease with previous angioplasty and stent placement GI prophylaxis Protonix and DVT prophylaxis IV heparin Time with Patient: Greater than 30 (Greater than 50% of the total time spent in counseling and coordination of care.I performed an examination of the patient and discussed their management with the physician Community Arts Worker. I have reviewed the Physician Community Arts Worker's notes and agree with the documented findings and plan of care)
--- NOTE | 2017-07-22 16:47 | P.CNPUL ---
<Lesly Sewell - Last Filed: 07/22/17 15:47> History of Present Illness Consult date: 07/22/17 Reason for consult: dyspnea, cough, COPD, obstructive sleep apnea Chief complaint: Shortness of breath, increased swelling in extremities History of present illness: This is a 71-year-old female patient with past medical history of COPD, lung cancer status post left lower lobectomy with chemoradiation, diabetes mellitus, hypertension, GERD who presented to the emergency room from her PCPs office Dr. Joan Stringer with complaints of increased shortness of breath since yesterday and a mild productive cough with small amount of thick yellow sputum. She denied fever or chills, chest congestion, hemoptysis, or wheezing. She also noted increased swelling in bilateral arms and legs, which is new to her. She denied chest pain or orthopnea. Patient is a remote smoker, with a 25-pack- year history, quit many years ago. Her symptoms also included generalized weakness, which is significantly worse today. When she presented to her PCPs office, she was told she had pneumonia. On presentation to the emergency room patient was found to be in A. fib with RVR with a rate of 120 BPM and hypoxic with O2 sat of 86% on 2 L per nasal cannula. She does wear home O2 at bedtime at 2 L. She was initiated on Cardizem drip for rate control and heparin drip per protocol. She sees Dr. Ledezma for management of her chronic COPD, and she is on Advair 250/50 and albuterol nebulized treatments as well as her rescue inhaler at home. Her last admission for COPD exacerbation and tracheobronchitis was in November 2016. Of note she was also found to be hypoglycemic in the emergency room with a blood sugar of 61, which was treated per hypoglycemia protocol. Patient is on a combination of glimepiride, metformin, NovoLog flex pen and Tresiba insulin at home. Her capillary blood sugar was rechecked after crackers and juice and is now at 74 mg/dL. Patient is awake alert, in no acute distress. On examination her lungs sounds scattered end expiratory wheezes throughout the lung castro with absent lung sounds over left lower lobe. No significant sputum production, no rhonchi. Chest x-ray showed cardiomegaly with prominent central vascularity and prominent interstitium. Left lower lobe density could be related to her history of left lower lung lobectomy. Patient has no leukocytosis, no signs of chest congestion or fever. No chills or night sweats. ProBNP 2680, patient is on Lasix 40 mg every 8 hours per attending. Patient has a history of obstructive sleep apnea for which she wears CPAP device at home but she is unsure of her home settings. Family will be asked to bring the home CPAP unit here. Review of Systems Constitutional: Denies chills, Denies fever Eyes: denies decreased vision, denies discharge Ears: deny: decreased hearing Ears, nose, mouth and throat: Denies headache, Denies sore throat Cardiovascular: Denies chest pain, Denies shortness of breath Respiratory: Reports cough with sputum, Reports dyspnea, Reports respiratory infections, Reports sleep apnea, Denies cough Gastrointestinal: Denies abdominal pain, Denies diarrhea, Denies nausea, Denies vomiting Genitourinary: Denies dysuria, Denies hematuria Musculoskeletal: Denies myalgias Integumentary: Denies pruritus, Denies rash Neurological: Denies numbness, Denies weakness Psychiatric: Denies anxiety, Denies depression Endocrine: Denies fatigue, Denies weight change Past Medical History Past Medical History: COPD, Diabetes Mellitus, Hyperlipidemia, Hypertension, Memory Impairment Additional Past Medical History / Comment(s): lung cancer, tubal ligation, spinal meningitis 1970, wears 2L o2 at night History of Any Multi-Drug Resistant Organisms: None Reported Additional Past Surgical History / Comment(s): left lower lobe lung removed, right shoulder rotator cuff Past Anesthesia/Blood Transfusion Reactions: No Reported Reaction Past Psychological History: No Psychological Hx Reported Smoking Status: Former smoker Past Alcohol Use History: None Reported Past Drug Use History: None Reported - Past Family History Mother Family Medical History: No Reported History Medications and Allergies Home Medications Medication Instructions Recorded Confirmed Type Atorvastatin [Lipitor] 40 mg PO HS 11/17/16 07/22/17 History Cholecalciferol [Vitamin D3] 4,000 unit PO DAILY 11/17/16 07/22/17 History Cyanocobalamin [Vitamin B-12] 500 mcg PO DAILY 11/17/16 07/22/17 History Fluticasone/Salmeterol [Advair 1 puff INHALATION RT-BID 11/17/16 07/22/17 History 250-50 Diskus] Gabapentin 800 mg PO TID 11/17/16 07/22/17 History Glimepiride [Amaryl] 4 mg PO AC-BID 11/17/16 07/22/17 History Insulin Aspart [NovoLOG Flexpen] 20 units SQ AC-TID 11/17/16 07/22/17 History Insulin Degludec [Tresiba 98 unit SQ DAILY 11/17/16 07/22/17 History Flextouch U-200] Losartan/Hydrochlorothiazide 1 tab PO DAILY 11/17/16 07/22/17 History [Losartan-Hctz 100-12.5 mg Tab] Meloxicam [Mobic] 7.5 - 15 mg PO HS 11/17/16 07/22/17 History Metoprolol Succinate [Toprol XL] 25 mg PO DAILY 11/17/16 07/22/17 History Nizatidine [Axid] 150 mg PO HS 11/17/16 07/22/17 History Omeprazole 20 mg PO BID 11/17/16 07/22/17 History Albuterol Inhaler [Ventolin Hfa 1 puff INHALATION RT-Q4H PRN 07/22/17 07/22/17 History Inhaler] Albuterol Nebulized [Ventolin 2.5 mg INHALATION RT-QID 07/22/17 07/22/17 History Nebulized] Furosemide [Lasix] 20 mg PO DAILY 07/22/17 07/22/17 History Loratadine [Claritin] 10 mg PO DAILY 07/22/17 07/22/17 History metFORMIN HCL [Glucophage] 500 mg PO BID 07/22/17 07/22/17 History Allergies Allergy/AdvReac Type Severity Reaction Status Date / Time codeine Allergy Unknown Verified 07/22/17 12:05 Physical Exam Vitals: Vital Signs Temp Pulse Resp BP Pulse Ox 07/22/17 15:32 64 07/22/17 15:24 60 07/22/17 14:09 98.8 F 07/22/17 14:02 111 H 18 166/89 94 L 07/22/17 12:32 62 07/22/17 12:22 62 07/22/17 12:18 115 H 179/84 86 L 07/22/17 12:12 28 H 07/22/17 12:05 99.1 F 120 H 28 H 172/83 91 L Intake and Output 07/22/17 07/22/17 07/22/17 06:59 14:59 22:59 Output Total 200 Balance -200 Output: Urine 200 Other: # Bowel Movements 1 Weight 99.79 kg Patient Weight 07/23/17 06:59 Weight 99.79 kg - Constitutional General appearance: average body habitus, no acute distress - EENT Eyes: PERRLA, dentition normal ENT: NA/AT, normal oropharynx - Neck Neck: normal ROM Carotids: bilateral: upstroke normal Thyroid: bilateral: normal size - Respiratory Respiratory: bilateral: diminished (Left lower lobe), dullness (Left lower lobe) , wheezing, prolonged expiration - Cardiovascular Rhythm: irregularly irregular Heart sounds: normal: S1, S2 ankle Peripheral Edema: bilateral: 1+ foot Peripheral Edema: bilateral: 1+ dorsalis pedis Peripheral Pulses: bilateral: Normal radial pulse Peripheral Pulses: bilateral: Normal - Gastrointestinal General gastrointestinal: no organomegaly, soft, no tenderness - Neurologic Neurologic: CNII-XII intact - Musculoskeletal Musculoskeletal: strength equal bilaterally - Psychiatric Psychiatric: A&O x's 3, appropriate affect, intact judgment & insight Results - Laboratory Findings CBC and BMP: 07/22/17 12:14 07/22/17 12:14 PT/INR, D-dimer PT 10.8 sec (9.0-12.0) 07/22/17 12:14 INR 1.1 (<1.2) 07/22/17 12:14 Abnormal lab findings: Abnormal Labs 07/22/17 07/22/17 07/22/17 12:14 12:14 14:59 MCHC 30.7 L RDW 15.7 H Neutrophils # 8.4 H Lymphocytes # 0.8 L BUN 21 H Glucose 61 L POC Glucose (mg/dL) 55 L 07/22/17 07/22/17 15:14 15:38 MCHC RDW Neutrophils # Lymphocytes # BUN Glucose POC Glucose (mg/dL) 59 L 74 L - Diagnostic Findings Chest x-ray: report reviewed Assessment and Plan Plan: Assessment: #1. Acute COPD exacerbation, on home O2 at bedtime, on IV Solu-Medrol, inhaled bronchodilators and Symbicort #2. Left lower lobe infiltrate suggestive of pneumonia, atelectasis versus effusion in the patient with a history of left lower lung lobectomy for lung cancer. Could represent a chronic finding #3. Acute on chronic hypoxic respiratory failure secondary to COPD exacerbation and an element of congestive heart failure, proBNP is elevated at 2680 pG/mL and increased peripheral edema. #4. History of lung cancer with left lobectomy and chemotherapy, unsure of the radiation therapy hypertension #5. History of coronary artery disease and stent placement #6. Remote nicotine dependence, in remission #7. Underlying history of diabetes mellitus, with hypoglycemia #8. History of hypertension #9. Gastroesophageal reflux disease #10. Memory impairment Plan Patient will continue on IV Solu-Medrol at 60 mg every 6 hours, Symbicort and DuoNeb treatments. We'll continue azithromycin and Rocephin for antibiotic coverage. Patient's chest x-ray was reviewed. The changes in the left lower lobe were present and documented on previous admission in November 2016 and 2009. Continue with Cardizem drip for heart rate control and IV heparin for anticoagulation. Monitor blood sugars. Continue IV Protonix for GI prophylaxis. Agree with IV Lasix, cardiology is on consult for A. fib and CHF. <Polly Alford - Last Filed: 07/23/17 12:52> Physical Exam Vitals: Vital Signs Temp Pulse Pulse Resp BP BP Pulse Ox 07/23/17 08:00 98.1 F 92 18 126/55 92 L 07/23/17 04:00 96.9 F L 90 18 156/69 90 L 07/23/17 00:00 97.1 F L 105 H 18 157/67 91 L 07/22/17 20:10 62 07/22/17 20:00 97.1 F L 99 18 182/72 5 L 07/22/17 19:58 64 07/22/17 16:00 98.2 F 99 18 135/78 95 07/22/17 15:32 64 07/22/17 15:24 60 07/22/17 14:09 98.8 F 07/22/17 14:02 111 H 18 166/89 94 L Intake and Output 07/22/17 07/23/17 07/23/17 22:59 06:59 14:59 Intake Total 326.17 360 Output Total 250 450 Balance -250 -123.83 360 Intake: Intake, IV Titration 326.17 Amount Heparin Sodium,Porcine/ 326.17 D5w Pmx 25,000 unit In Dextrose/Water 1 500ml. bag @ 10.02 UNITS/KG/HR 19.99 mls/hr IV .Q24H [facility] Rx#:[id number] Oral 360 Output: Urine 250 450 Other: # Voids 2 1 1 # Bowel Movements 0 Weight 105.5 kg Results - Laboratory Findings CBC and BMP: 07/23/17 02:56 07/23/17 02:56 PT/INR, D-dimer PT 10.8 sec (9.0-12.0) 07/22/17 12:14 INR 1.1 (<1.2) 07/22/17 12:14 Abnormal lab findings: Abnormal Labs 07/22/17 07/22/17 07/22/17 12:14 12:14 12:14 MCHC 30.7 L RDW 15.7 H Neutrophils # 8.4 H Lymphocytes # 0.8 L APTT Sodium Chloride BUN 21 H Glucose 61 L POC Glucose (mg/dL) Hemoglobin A1c 6.9 H Total Protein Albumin 07/22/17 07/22/17 07/22/17 14:59 15:14 15:38 MCHC RDW Neutrophils # Lymphocytes # APTT Sodium Chloride BUN Glucose POC Glucose (mg/dL) 55 L 59 L 74 L Hemoglobin A1c Total Protein Albumin 07/22/17 07/22/17 07/23/17 16:54 20:40 02:56 MCHC 29.5 L RDW Neutrophils # Lymphocytes # 0.4 L APTT Sodium Chloride BUN Glucose POC Glucose (mg/dL) 155 H 241 H Hemoglobin A1c Total Protein Albumin 07/23/17 07/23/17 07/23/17 02:56 05:24 11:39 MCHC RDW Neutrophils # Lymphocytes # APTT Sodium 136 L Chloride 97 L BUN 28 H Glucose 267 H POC Glucose (mg/dL) 249 H 404 H Hemoglobin A1c Total Protein 6.2 L Albumin 3.2 L 07/23/17 12:07 MCHC RDW Neutrophils # Lymphocytes # APTT 33.5 H Sodium Chloride BUN Glucose POC Glucose (mg/dL) Hemoglobin A1c Total Protein Albumin Assessment and Plan Plan: This is a joint evaluation that was done with the nurse practitioner. The patient was seen along with the nurse practitioner. I do attested information mentioned above. The patient is predominantly having issues with CHF and fluid overload for which she was started on diuretics. Possibility of left lung pneumonia cannot be completely excluded. She has undergone a left lobectomy probably left lower lobe for a previous history of non-small cell lung cancer. She is an ex-smoker. She may be in a mild component of COPD exacerbation in addition. She is on bronchodilators patient is on steroids. She is on Symbicort at baseline. Continue diuretics. 9 acute atrial fibrillation and use IV heparin and Cardizem for now. We'll continue to follow.
[2017-07-22 16:55] LABS: Glucose,Whole Blood 155 mg/dL (75-99)
[2017-07-22] MEDS: NITROGLYCERIN OINT 1 INCH/GM PACKET TOPICAL SCH ×3 (17:51→22:30)
[2017-07-22] MEDS: PANTOPRAZOLE 40 MG TABLET PO SCH (17:58)
[2017-07-22] MEDS: INSULIN LISPRO (humaLOG) 300 UNIT/3 ML VIAL SQ SCH ×2 (17:58→22:30)
[2017-07-22] MEDS: GABAPENTIN 400 MG CAP PO SCH ×2 (17:58→22:30)
[2017-07-22] MEDS: methylPREDNISolone SOD SUCCI 125 MG/2 ML VIAL IV SCH ×2 (17:59→23:30)
[2017-07-22] MEDS: SYMBICORT 80-4.5 MCG INHALER INHALATION SCH (19:58)
[2017-07-22 20:23] LABS: Hemoglobin A1C 6.9 % (4.2-6.1)
[2017-07-22 20:42] LABS: Glucose,Whole Blood 241 mg/dL (75-99)
[2017-07-22] MEDS ORDERED: metFORMIN 500 MG TAB PO SCH (21:00)
[2017-07-22] MEDS: MELOXICAM 7.5 MG TAB PO SCH (22:30)
[2017-07-22] MEDS: ATORVASTATIN 40 MG TAB PO SCH (22:30)
[2017-07-22] MEDS: FAMOTIDINE 20 MG TAB PO SCH (22:30)
[2017-07-22] MEDS: FUROSEMIDE 10 MG/ML 4 ML VIAL IV SCH (23:30)
[2017-07-23 03:20] LABS: Basophils % (A) 0 %; CHCM 30.1; Eosinophils % (A) 0 %; HCT 41.8 % (34.0-46.0); HDW 3.02; HGB 12.3 gm/dL (11.4-16.0); Hypochromasia Marked; Luc # (Auto) 0.03; Luc % (Auto) 1; Lymphocytes # (A) 0.4 k/uL (1.0-4.8); Lymphocytes % (A) 8 %; MCH 26.5 pg (25.0-35.0); MCHC 29.5 g/dL (31.0-37.0); MCV 90.1 fL (80.0-100.0); Mean Platelet Volume 7.6; Monocytes # (A) 0.1 k/uL (0-1.0); Monocytes % (A) 2 %; Neutrophils # (A) 5.1 k/uL (1.3-7.7); Neutrophils % (A) 90 %; RBC 4.64 m/uL (3.80-5.40); RDW 15.5 % (11.5-15.5); WBC 5.7 k/uL (3.8-10.6); WBC (Perox) 5.62
[2017-07-23 03:30] LABS: ALT 43 U/L (9-52); AST 24 U/L (14-36); Alkaline Phosphatase 72 U/L (38-126); Anion Gap 10 mmol/L; Blood Urea Nitrogen 28 mg/dL (7-17); Calcium 8.5 mg/dL (8.4-10.2); Carbon Dioxide 29 mmol/L (22-30); Chloride 97 mmol/L (98-107); Glucose 267 mg/dL (74-99); Non-African American GFR(MDRD) >60 (>60 ml/min/1.73 sqM); Potassium 4.8 mmol/L (3.5-5.1); Sodium 136 mmol/L (137-145); Total Bilirubin 0.3 mg/dL (0.2-1.3); Total Protein 6.2 g/dL (6.3-8.2)
[2017-07-23 05:26] LABS: Glucose,Whole Blood 249 mg/dL (75-99)
[2017-07-23] MEDS: methylPREDNISolone SOD SUCCI 125 MG/2 ML VIAL IV SCH ×4 (06:07→23:12)
[2017-07-23] MEDS: INSULIN LISPRO (humaLOG) 300 UNIT/3 ML VIAL SQ SCH ×3 (07:10→18:28)
[2017-07-23] MEDS: PANTOPRAZOLE 40 MG TABLET PO SCH ×2 (07:11→18:28)
--- NOTE | 2017-07-23 07:52 | XR ---
EXAMINATION TYPE: XR chest 2V DATE OF EXAM: 07/23/2017 COMPARISON: Prior chest x-ray 07/22/2017 HISTORY: Pneumonia, dyspnea TECHNIQUE: Frontal and lateral views of the chest are obtained. FINDINGS: Retrocardiac density persists. The heart remains enlarged. No evident pneumothorax. Inters titium is increased. Pulmonary vascularity appears prominently. IMPRESSION: Correlate for pulmonary venous hypertension and interstitial edema, there may be left lo wer lobe atelectasis versus edema, correlate to exclude pneumonia. There may be small effusion.
--- NOTE | 2017-07-23 08:07 | ECHOF ---
Referral Reason:afib, CHF MEASUREMENTS -------- HEIGHT: 172.7 cm WEIGHT: 99.8 kg BP: 166/89 RVIDd: 3.3 cm (< 3.3) IVSd: 1.6 cm (0.6 - 1.1) LVIDd: 4.3 cm (3.9 - 5.3) LVPWd: 1.5 cm (0.6 - 1.1) IVSs: 1.9 cm LVIDs: 3.3 cm LVPWs: 2.1 cm LA Diam: 4.2 cm (2.7 - 3.8) LAESV Index (A-L): 29.50 ml/m Ao Diam: 3.1 cm (2.0 - 3.7) AV Cusp: 2.0 cm (1.5 - 2.6) RAP: 5.00 mmHg RVSP: 57.75 mmHg FINDINGS -------- Atrial fibrillation. This was a technically adequate study. The left ventricular size is normal. There is moderate concentric left ventricular hypertrophy. Overall left ventricular systolic function is normal with, an EF between 55 - 60 %. The right ventricle is mildly enlarged. LA is midly dilated 29-33ml/m2. The right atrium was not well visualized. The aortic valve is trileaflet and appears structurally normal. The mitral valve leaflets are mildly thickened. Mild mitral annular calcification present. Mild tricuspid regurgitation present. There is moderate to severe pulmonary hypertension. The right ventricular systolic pressure, as measured by Doppler, is 57.75mmHg. The pulmonic valve was not well visualized. The aortic root size is normal. IVC Not well visulized. There is a small pericardial effusion located near the left ventricle. CONCLUSIONS -------- 1. Atrial fibrillation. 2. The mitral valve leaflets are mildly thickened. 3. Mild mitral annular calcification present. 4. Mild tricuspid regurgitation present. 5. There is moderate to severe pulmonary hypertension. 6. The right ventricular systolic pressure, as measured by Doppler, is 57.75mmHg. 7. The pulmonic valve was not well visualized. 8. The aortic root size is normal. 9. IVC Not well visulized. 10. There is a small pericardial effusion located near the left ventricle. 11. This was a technically adequate study. 12. The left ventricular size is normal. 13. There is moderate concentric left ventricular hypertrophy. 14. Overall left ventricular systolic function is normal with, an EF between 55 - 60 %. 15. The right ventricle is mildly enlarged. 16. LA is midly dilated 29-33ml/m2. 17. The right atrium was not well visualized. 18. The aortic valve is trileaflet and appears structurally normal. [employer]: Anna Calderon RDCS
[2017-07-23] MEDS ORDERED: ASPIRIN 325 MG TAB PO SCH (09:00)
[2017-07-23] MEDS ORDERED: INSULIN DETEMIR 100 UNIT/ML 10 ML VIAL SQ SCH (09:00)
[2017-07-23] MEDS ORDERED: NON-FORMULARY DRUG (Losartan/Hydrochlorothiazide [Losartan-Hctz 100-12.5 Mg Tab] 1 TAB) PO SCH (09:00)
[2017-07-23] MEDS: AZITHROMYCIN 500 MG TAB PO SCH (09:45)
[2017-07-23] MEDS: LOSARTAN 50 MG TAB PO SCH (09:45)
[2017-07-23] MEDS: GABAPENTIN 400 MG CAP PO SCH ×3 (09:45→20:48)
[2017-07-23] MEDS: HYDROCHLOROTHIAZIDE 12.5 MG CAP PO SCH (09:45)
[2017-07-23] MEDS: LORATADINE 10 MG TAB PO SCH (09:45)
[2017-07-23] MEDS: FUROSEMIDE 10 MG/ML 4 ML VIAL IV SCH (09:46)
[2017-07-23] MEDS: NITROGLYCERIN OINT 1 INCH/GM PACKET TOPICAL SCH ×4 (09:47→20:56)
[2017-07-23] MEDS: SYMBICORT 80-4.5 MCG INHALER INHALATION SCH ×2 (10:00→20:25)
[2017-07-23] MEDS: IPRATROPIUM-ALBUTEROL 3 ML NEB INHALATION SCH ×4 (10:00→20:24)
--- NOTE | 2017-07-23 11:08 | P.PN ---
Subjective Progress Note Date: 07/23/17 This is a 71-year-old female, patient of [facility]. She has a known past medical history of lung cancer with a previous left lower lobectomy and chemotherapy, diabetes mellitus, hypertension, coronary artery disease with previous cardiac stent, hyperlipidemia, COPD and bronchitis. Patient states over the last 2 days she's had worsening shortness of breath. She's also been having a mild cough which is productive at times. She has noted to have shortness of breath with walking a short distance. She denies any chest pain, nausea or vomiting, bowel movement changes or urinary symptoms. She denies any fevers chills or sweats. Patient was found to have atrial fibrillation with a rapid ventricular response on admission. Heart rate was 120. She was started on a Cardizem drip and IV heparin. Cardiology has been consulted. Patient was also started on IV Solu-Medrol for an acute COPD exacerbation. Also placed on antibiotics for questionable pneumonia versus bronchitis. She also had evidence of congestive heart failure BNP was elevated 2680. She has some bilateral lower extremity edema with a chest x-ray showing cardiomegaly and to correlate for possible pulmonary venous hypertension and interstitial edema. Patient did receive 1 dose of IV Lasix in the emergency room. Oxygen saturation on admission was at 86% and has gone up to 94% with 3 L. He has also been hypoglycemic with a blood sugar of 55. Patient reports that she has not taken her home medications state or eating anything today. This is likely contributing to patient's low blood sugar. Patient does not have a history of atrial fibrillation. Cardiology and pulmonary service have been consulted. 07/23/2017 patient has noted some improvement in her shortness of breath. However, during her morning shower she still had some shortness of breath. She' s currently on 5 L nasal cannula standing and 90%. Cardiology and pulmonary service are following. She is on IV steroids, IV Lasix and antibiotics. She denies any chest pain. Denies any nausea or vomiting. Reports having regular bowel movement. Denies any difficulty with urinating. Objective - Vital Signs Vital signs: Vital Signs Temp 98.1 F 07/23/17 08:00 Pulse 92 07/23/17 08:00 Resp 18 07/23/17 08:00 BP 126/55 07/23/17 08:00 Pulse Ox 92 L 07/23/17 08:00 Intake & Output 07/22/17 07/23/17 07/23/17 18:59 06:59 18:59 Intake Total 326.17 360 Output Total 450 450 Balance -450 -123.83 360 Weight 99.79 kg 105.5 kg Intake: Intake, IV Titration 326.17 Amount Heparin Sodium,Porcine/ 326.17 D5w Pmx 25,000 unit In Dextrose/Water 1 500ml. bag @ 10.02 UNITS/KG/HR 19.99 mls/hr IV .Q24H [facility] Rx#:[id number] Oral 360 Output: Urine 450 450 Other: # Voids 2 1 1 # Bowel Movements 1 0 - Exam Head normocephalic Neck supple Lungs echo this right lower lobe Heart regular rate and rhythm S1-S2, no rub or gallop Abdomen is soft nontender nondistended positive bowel sounds no hepatosplenomegaly Extremities 1-2+ edema bilateral lower extremities Neuro alert and orientated to 3 - Labs CBC & Chem 7: 07/23/17 02:56 07/23/17 02:56 Labs: Abnormal Lab Results - Last 24 Hours (Table) 07/22/17 07/22/17 07/22/17 Range/Units 12:14 12:14 12:14 MCHC 30.7 L (31.0-37.0) g/dL RDW 15.7 H (11.5-15.5) % Neutrophils # 8.4 H (1.3-7.7) k/uL Lymphocytes # 0.8 L (1.0-4.8) k/uL Sodium (137-145) mmol/L Chloride (98-107) mmol/L BUN 21 H (7-17) mg/dL Glucose 61 L (74-99) mg/dL POC Glucose (mg/dL) (75-99) mg/dL Hemoglobin A1c 6.9 H (4.2-6.1) % Total Protein (6.3-8.2) g/dL Albumin (3.5-5.0) g/dL 07/22/17 07/22/17 07/22/17 Range/Units 14:59 15:14 15:38 MCHC (31.0-37.0) g/dL RDW (11.5-15.5) % Neutrophils # (1.3-7.7) k/uL Lymphocytes # (1.0-4.8) k/uL Sodium (137-145) mmol/L Chloride (98-107) mmol/L BUN (7-17) mg/dL Glucose (74-99) mg/dL POC Glucose (mg/dL) 55 L 59 L 74 L (75-99) mg/dL Hemoglobin A1c (4.2-6.1) % Total Protein (6.3-8.2) g/dL Albumin (3.5-5.0) g/dL 07/22/17 07/22/17 07/23/17 Range/Units 16:54 20:40 02:56 MCHC 29.5 L (31.0-37.0) g/dL RDW (11.5-15.5) % Neutrophils # (1.3-7.7) k/uL Lymphocytes # 0.4 L (1.0-4.8) k/uL Sodium (137-145) mmol/L Chloride (98-107) mmol/L BUN (7-17) mg/dL Glucose (74-99) mg/dL POC Glucose (mg/dL) 155 H 241 H (75-99) mg/dL Hemoglobin A1c (4.2-6.1) % Total Protein (6.3-8.2) g/dL Albumin (3.5-5.0) g/dL 07/23/17 07/23/17 Range/Units 02:56 05:24 MCHC (31.0-37.0) g/dL RDW (11.5-15.5) % Neutrophils # (1.3-7.7) k/uL Lymphocytes # (1.0-4.8) k/uL Sodium 136 L (137-145) mmol/L Chloride 97 L (98-107) mmol/L BUN 28 H (7-17) mg/dL Glucose 267 H (74-99) mg/dL POC Glucose (mg/dL) 249 H (75-99) mg/dL Hemoglobin A1c (4.2-6.1) % Total Protein 6.2 L (6.3-8.2) g/dL Albumin 3.2 L (3.5-5.0) g/dL Assessment and Plan Plan: 1. Acute and chronic hypoxic respiratory failure: multifactorial likely related to COPD exacerbation, atrial fibrillation with rapid ventricular response, CHF exacerbation and bronchitis 2. Acute COPD exacerbation patient is been placed on IV Solu-Medrol with bronchodilators. We'll monitor service is following 3. Acute tracheobronchitis: Patient has been started on Rocephin and azithromycin. Pulmonary service following. They have reviewed this chest x- ray and likely left lower lobe changes are chronic. They were present on previous admission in November 2016 and 2009 4. Atrial fibrillation with rapid ventricular response and new onset: Patient is been placed on IV Cardizem drip and IV heparin. Cardiology has been consulted. Heart rate is better controlled 5. Acute CHF exacerbation: Continue IV Lasix. Echo shows an EF of 55-60%. There is moderate to severe pulmonary hypertension. And a small pericardial effusion. We'll await further cardiology and pulmonary recommendations 6. History of lung cancer status post left lower lobectomy and chemotherapy 7. Diabetes mellitus type 2 with hypoglycemia: We'll place patient on sliding scale coverage and monitor closely. hold oral hypoglycemics. Resume Tresiba. Hyperglycemia secondary to steroids. Continue sliding scale coverage 8. History of coronary artery disease with previous angioplasty and stent placement GI prophylaxis Protonix and DVT prophylaxis IV heparin I performed an examination of the patient and discussed their management with the physician Trestleman. I have reviewed the Physician Trestleman's notes and agree with the documented findings and plan of care
--- NOTE | 2017-07-23 11:30 | P.PN ---
<Lesly Sewell M - Last Filed: 07/23/17 11:14> Subjective Progress Note Date: 07/23/17 Principal diagnosis: Dyspnea, cough, COPD, obstructive sleep apnea This is a 71-year-old female patient with past medical history of COPD, lung cancer status post left lower lobectomy with chemoradiation, diabetes mellitus, hypertension, GERD who presented to the emergency room from her PCPs office Dr. Joan Stringer with complaints of increased shortness of breath since yesterday and a mild productive cough with small amount of thick yellow sputum. She denied fever or chills, chest congestion, hemoptysis, or wheezing. She also noted increased swelling in bilateral arms and legs, which is new to her. She denied chest pain or orthopnea. Patient is a remote smoker, with a 25-pack- year history, quit many years ago. Her symptoms also included generalized weakness, which is significantly worse today. When she presented to her PCPs office, she was told she had pneumonia. On presentation to the emergency room patient was found to be in A. fib with RVR with a rate of 120 BPM and hypoxic with O2 sat of 86% on 2 L per nasal cannula. She does wear home O2 at bedtime at 2 L. She was initiated on Cardizem drip for rate control and heparin drip per protocol. She sees Dr. Ledezma for management of her chronic COPD, and she is on Advair 250/50 and albuterol nebulized treatments as well as her rescue inhaler at home. Her last admission for COPD exacerbation and tracheobronchitis was in November 2016. Of note she was also found to be hypoglycemic in the emergency room with a blood sugar of 61, which was treated per hypoglycemia protocol. Patient is on a combination of glimepiride, metformin, NovoLog flex pen and Tresiba insulin at home. Her capillary blood sugar was rechecked after crackers and juice and is now at 74 mg/dL. Patient is awake alert, in no acute distress. On examination her lungs sounds scattered end expiratory wheezes throughout the lung castro with absent lung sounds over left lower lobe. No significant sputum production, no rhonchi. Chest x-ray showed cardiomegaly with prominent central vascularity and prominent interstitium. Left lower lobe density could be related to her history of left lower lung lobectomy. Patient has no leukocytosis, no signs of chest congestion or fever. No chills or night sweats. ProBNP 2680, patient is on Lasix 40 mg every 8 hours per attending. Patient has a history of obstructive sleep apnea for which she wears CPAP device at home but she is unsure of her home settings. Family will be asked to bring the home CPAP unit here. On 07/23/2017 patient is seen in follow-up. She is sleeping sitting up on her bedside table. She denied fever or chills, she denied coughing or any sputum production. Lung sounds are diminished with end expiratory wheezes on forced exhale maneuver. She is wearing 5 L oxygen per nasal cannula with O2 saturations around 90%. Chest x-ray from 07/23/2017 has been reviewed. Showed increased pulmonary vascularity, cardiomegaly, and retrocardiac density. She continues on Cardizem drip at 5 mg per hour, she remains in A. fib with a better controlled rate, around 89 BPM today. Continues on heparin drip for anticoagulation. IV Lasix with mild diuresis, she has a -573 mL balance overnight over the last 24 hours. She continues on IV steroids and on antibiotics in the form of Zithromax and Rocephin. She denies any chest pain. He states her breathing is slightly better today. Her bilateral lower leg edema show slight improvement. Objective - Vital Signs Vital signs: Vital Signs Temp 98.1 F 07/23/17 08:00 Pulse 92 07/23/17 08:00 Resp 18 07/23/17 08:00 BP 126/55 07/23/17 08:00 Pulse Ox 92 L 07/23/17 08:00 Intake & Output 07/22/17 07/23/17 07/23/17 18:59 06:59 18:59 Intake Total 326.17 360 Output Total 450 450 Balance -450 -123.83 360 Weight 99.79 kg 105.5 kg Intake: Intake, IV Titration 326.17 Amount Heparin Sodium,Porcine/ 326.17 D5w Pmx 25,000 unit In Dextrose/Water 1 500ml. bag @ 10.02 UNITS/KG/HR 19.99 mls/hr IV .Q24H [facility] Rx#:[id number] Oral 360 Output: Urine 450 450 Other: # Voids 2 1 1 # Bowel Movements 1 0 - Exam Constitutional General appearance: average body habitus, no acute distress - EENT Eyes: PERRLA, dentition normal ENT: NA/AT, normal oropharynx - Neck Neck: normal ROM Carotids: bilateral: upstroke normal Thyroid: bilateral: normal size - Respiratory Respiratory: bilateral: diminished (Left lower lobe), dullness (Left lower lobe) , wheezing, prolonged expiration - Cardiovascular Rhythm: irregularly irregular Heart sounds: normal: S1, S2 ankle Peripheral Edema: bilateral: 1+ foot Peripheral Edema: bilateral: 1+ dorsalis pedis Peripheral Pulses: bilateral: Normal radial pulse Peripheral Pulses: bilateral: Normal - Gastrointestinal General gastrointestinal: no organomegaly, soft, no tenderness - Neurologic Neurologic: CNII-XII intact - Musculoskeletal Musculoskeletal: strength equal bilaterally - Psychiatric Psychiatric: A&O x's 3, appropriate affect, intact judgment & insigh - Labs CBC & Chem 7: 07/23/17 02:56 07/23/17 02:56 Labs: Abnormal Lab Results - Last 24 Hours (Table) 07/22/17 07/22/17 07/22/17 Range/Units 12:14 12:14 12:14 MCHC 30.7 L (31.0-37.0) g/dL RDW 15.7 H (11.5-15.5) % Neutrophils # 8.4 H (1.3-7.7) k/uL Lymphocytes # 0.8 L (1.0-4.8) k/uL Sodium (137-145) mmol/L Chloride (98-107) mmol/L BUN 21 H (7-17) mg/dL Glucose 61 L (74-99) mg/dL POC Glucose (mg/dL) (75-99) mg/dL Hemoglobin A1c 6.9 H (4.2-6.1) % Total Protein (6.3-8.2) g/dL Albumin (3.5-5.0) g/dL 07/22/17 07/22/17 07/22/17 Range/Units 14:59 15:14 15:38 MCHC (31.0-37.0) g/dL RDW (11.5-15.5) % Neutrophils # (1.3-7.7) k/uL Lymphocytes # (1.0-4.8) k/uL Sodium (137-145) mmol/L Chloride (98-107) mmol/L BUN (7-17) mg/dL Glucose (74-99) mg/dL POC Glucose (mg/dL) 55 L 59 L 74 L (75-99) mg/dL Hemoglobin A1c (4.2-6.1) % Total Protein (6.3-8.2) g/dL Albumin (3.5-5.0) g/dL 07/22/17 07/22/17 07/23/17 Range/Units 16:54 20:40 02:56 MCHC 29.5 L (31.0-37.0) g/dL RDW (11.5-15.5) % Neutrophils # (1.3-7.7) k/uL Lymphocytes # 0.4 L (1.0-4.8) k/uL Sodium (137-145) mmol/L Chloride (98-107) mmol/L BUN (7-17) mg/dL Glucose (74-99) mg/dL POC Glucose (mg/dL) 155 H 241 H (75-99) mg/dL Hemoglobin A1c (4.2-6.1) % Total Protein (6.3-8.2) g/dL Albumin (3.5-5.0) g/dL 07/23/17 07/23/17 Range/Units 02:56 05:24 MCHC (31.0-37.0) g/dL RDW (11.5-15.5) % Neutrophils # (1.3-7.7) k/uL Lymphocytes # (1.0-4.8) k/uL Sodium 136 L (137-145) mmol/L Chloride 97 L (98-107) mmol/L BUN 28 H (7-17) mg/dL Glucose 267 H (74-99) mg/dL POC Glucose (mg/dL) 249 H (75-99) mg/dL Hemoglobin A1c (4.2-6.1) % Total Protein 6.2 L (6.3-8.2) g/dL Albumin 3.2 L (3.5-5.0) g/dL Assessment and Plan Plan: Assessment: #1. Acute COPD exacerbation with an element of tracheobronchitis, on home O2 at bedtime, on IV Solu-Medrol, inhaled bronchodilators and Symbicort #2. Left lower lobe infiltrate suggestive of pneumonia, atelectasis versus effusion in the patient with a history of left lower lung lobectomy for lung cancer. Could represent a chronic finding. Small pleural effusion on the left was difficult to exclude. #3. Acute on chronic hypoxic respiratory failure secondary to COPD exacerbation and an element of congestive heart failure, proBNP is elevated at 2680 pG/mL and increased peripheral edema. 2-D echo results show EF between 55 and 60% with moderate to severe pulmonary hypertension with right ventricular systolic pressure of 57 mmHg. #4. History of lung cancer with left lobectomy and chemotherapy, unsure of the radiation therapy hypertension #5. History of coronary artery disease and stent placement, negative troponins 3 #6. Remote nicotine dependence, in remission #7. Underlying history of diabetes mellitus, with hypoglycemia, further episodes of hypoglycemia overnight #8. History of hypertension #9. Gastroesophageal reflux disease #10. Memory impairment Plan Patient will continue on IV Solu-Medrol at 60 mg every 6 hours, Symbicort and DuoNeb treatments. We'll continue azithromycin and Rocephin for antibiotic coverage. Patient's repeat chest x-ray was reviewed. The changes in the left lower lobe were present and documented on previous admission in November 2016 and [address] chest. Continue with Cardizem drip for heart rate control and IV heparin for anticoagulation. Monitor blood sugars. Continue IV Protonix for GI prophylaxis. Agree with IV Lasix, cardiology is on consult for A. fib and CHF. I performed a history & physical examination of the patient and discussed their management with my nurse practitioner, Lesly Sewell. I reviewed the nurse practitioner's note and agree with the documented findings and plan of care. <Polly Alford - Last Filed: 07/23/17 12:55> Objective - Vital Signs Vital signs: Vital Signs Temp 98.1 F 07/23/17 08:00 Pulse 92 07/23/17 08:00 Resp 18 07/23/17 08:00 BP 126/55 07/23/17 08:00 Pulse Ox 92 L 07/23/17 08:00 Intake & Output 07/22/17 07/23/17 07/23/17 18:59 06:59 18:59 Intake Total 326.17 360 Output Total 450 450 Balance -450 -123.83 360 Weight 99.79 kg 105.5 kg Intake: Intake, IV Titration 326.17 Amount Heparin Sodium,Porcine/ 326.17 D5w Pmx 25,000 unit In Dextrose/Water 1 500ml. bag @ 10.02 UNITS/KG/HR 19.99 mls/hr IV .Q24H [facility] Rx#:[id number] Oral 360 Output: Urine 450 450 Other: # Voids 2 1 1 # Bowel Movements 1 0 - Labs CBC & Chem 7: 07/23/17 02:56 07/23/17 02:56 Labs: Abnormal Lab Results - Last 24 Hours (Table) 07/22/17 07/22/17 07/22/17 Range/Units 12:14 14:59 15:14 MCHC (31.0-37.0) g/dL Lymphocytes # (1.0-4.8) k/uL APTT (22.0-30.0) sec Sodium (137-145) mmol/L Chloride (98-107) mmol/L BUN (7-17) mg/dL Glucose (74-99) mg/dL POC Glucose (mg/dL) 55 L 59 L (75-99) mg/dL Hemoglobin A1c 6.9 H (4.2-6.1) % Total Protein (6.3-8.2) g/dL Albumin (3.5-5.0) g/dL 07/22/17 07/22/17 07/22/17 Range/Units 15:38 16:54 20:40 MCHC (31.0-37.0) g/dL Lymphocytes # (1.0-4.8) k/uL APTT (22.0-30.0) sec Sodium (137-145) mmol/L Chloride (98-107) mmol/L BUN (7-17) mg/dL Glucose (74-99) mg/dL POC Glucose (mg/dL) 74 L 155 H 241 H (75-99) mg/dL Hemoglobin A1c (4.2-6.1) % Total Protein (6.3-8.2) g/dL Albumin (3.5-5.0) g/dL 07/23/17 07/23/17 07/23/17 Range/Units 02:56 02:56 05:24 MCHC 29.5 L (31.0-37.0) g/dL Lymphocytes # 0.4 L (1.0-4.8) k/uL APTT (22.0-30.0) sec Sodium 136 L (137-145) mmol/L Chloride 97 L (98-107) mmol/L BUN 28 H (7-17) mg/dL Glucose 267 H (74-99) mg/dL POC Glucose (mg/dL) 249 H (75-99) mg/dL Hemoglobin A1c (4.2-6.1) % Total Protein 6.2 L (6.3-8.2) g/dL Albumin 3.2 L (3.5-5.0) g/dL 07/23/17 07/23/17 Range/Units 11:39 12:07 MCHC (31.0-37.0) g/dL Lymphocytes # (1.0-4.8) k/uL APTT 33.5 H (22.0-30.0) sec Sodium (137-145) mmol/L Chloride (98-107) mmol/L BUN (7-17) mg/dL Glucose (74-99) mg/dL POC Glucose (mg/dL) 404 H (75-99) mg/dL Hemoglobin A1c (4.2-6.1) % Total Protein (6.3-8.2) g/dL Albumin (3.5-5.0) g/dL Assessment and Plan Plan: The patient is doing better on today's evaluation. She was taken off the Cardizem drip and her heart is under better control. Echocardiogram showed a preserved LV function with an ejection fraction of 55-60%. Her swelling lower extremities improving. She is on antibiotics. She is receiving a combination of Rocephin and Zithromax. She is on IV Lasix. She is on heparin drip. Switch to oral anticoagulants choice per cardiology.
[2017-07-23 11:41] LABS: Glucose,Whole Blood 404 mg/dL (75-99)
[2017-07-23] MEDS ORDERED: INSULIN LISPRO (humaLOG) 300 UNIT/3 ML VIAL SQ ONE (12:00)
[2017-07-23] MEDS: METOPROLOL SUCCINATE (ER) 25 MG TAB.ER.24H PO SCH (12:03)
[2017-07-23] MEDS: CHOLECALCIFEROL 1,000 UNIT TAB PO SCH (12:03)
[2017-07-23] MEDS: CYANOCOBALAMIN 500 MCG TAB PO SCH (12:03)
--- NOTE | 2017-07-23 12:14 | P.CRDCN ---
History of Present Illness Consult date: 07/23/17 Requesting physician: Ramonita Sorenson Consult reason: congestive heart failure Chief complaint: Shortness of breath History of present illness: This is a pleasant 71-year-old female with history of COPD, lung CA with prior left lower lobectomy, status post chemotherapy and radiation, sleep apnea, hypertension, diabetes, GERD, who presented to the hospital with symptoms of progressively worsening shortness of breath. Positive PND and orthopnea. Patient also has significant amount of peripheral edema which she states that she has had for several months. Prior history of smoking. On presentation here EKG showed atrial fibrillation with a rapid ventricular response, was initiated on IV Cardizem drip. According to the patient, she has never been told in the past to have atrial fibrillation or congestive cardiac failure. 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 Chest x-ray on admission revealed cardiomegaly and possible pulmonary venous hypertension as well as interstitial edema. Possible left lower lobe atelectasis versus pneumonia. Echocardiogram with Doppler study was performed which revealed a small pericardial effusion moderate concentric LVH, ejection fraction 55-60%. Moderate to severe pulmonary hypertension. Repeat chest x-ray this morning shows persistence in interstitial edema, possible pneumonia, small effusion. Blood pressure on arrival 172/80, heart rate 120, 91% on 4 L of oxygen with a temperature of 99.1. Today she is afebrile, blood pressure 126/50, heart rate 90, 92% on 5 L of oxygen. White blood cell count 5.7, hemoglobin 12.3, platelet count 193. Sodium 136, potassium 4.8, BUN 28, creatinine 0.7. Troponin 0.019, 0.030, 0.017. BNP level 2680. was initiated on IV Lasix in the emergency room, she is on 40 mg IV every 8 hour. Patient is diuresing from the IV Lasix, small amounts. Patient does state this morning that her breathing is somewhat improved, however continues to feel significantly short of breath, continues to have significant bilateral peripheral edema and abdominal swelling. Past Medical History Past Medical History: COPD, Diabetes Mellitus, Hyperlipidemia, Hypertension, Memory Impairment Additional Past Medical History / Comment(s): lung cancer, tubal ligation, spinal meningitis 1970, wears 2L o2 at night History of Any Multi-Drug Resistant Organisms: None Reported Past Surgical History: Heart Catheterization With Stent, Tubal Ligation Additional Past Surgical History / Comment(s): left lower lobe lung removed, right shoulder rotator cuff Past Anesthesia/Blood Transfusion Reactions: No Reported Reaction Additional Past Anesthesia/Blood Transfusion Reaction / Comment(s): clausterphobia Date of Last Stent Placement:: unk Past Psychological History: No Psychological Hx Reported Smoking Status: Former smoker Past Alcohol Use History: None Reported Past Drug Use History: None Reported - Past Family History Mother History Unknown: Yes Family Medical History: No Reported History Father Family Medical History: Diabetes Mellitus Medications and Allergies Home Medications Medication Instructions Recorded Confirmed Type Atorvastatin [Lipitor] 40 mg PO HS 11/17/16 07/22/17 History Cholecalciferol [Vitamin D3] 4,000 unit PO DAILY 11/17/16 07/22/17 History Cyanocobalamin [Vitamin B-12] 500 mcg PO DAILY 11/17/16 07/22/17 History Fluticasone/Salmeterol [Advair 1 puff INHALATION RT-BID 11/17/16 07/22/17 History 250-50 Diskus] Gabapentin 800 mg PO TID 11/17/16 07/22/17 History Glimepiride [Amaryl] 4 mg PO AC-BID 11/17/16 07/22/17 History Insulin Aspart [NovoLOG Flexpen] 20 units SQ AC-TID 11/17/16 07/22/17 History Insulin Degludec [Tresiba 98 unit SQ DAILY 11/17/16 07/22/17 History Flextouch U-200] Losartan/Hydrochlorothiazide 1 tab PO DAILY 11/17/16 07/22/17 History [Losartan-Hctz 100-12.5 mg Tab] Meloxicam [Mobic] 7.5 - 15 mg PO HS 11/17/16 07/22/17 History Metoprolol Succinate [Toprol XL] 25 mg PO DAILY 11/17/16 07/22/17 History Nizatidine [Axid] 150 mg PO HS 11/17/16 07/22/17 History Omeprazole 20 mg PO BID 11/17/16 07/22/17 History Albuterol Inhaler [Ventolin Hfa 1 puff INHALATION RT-Q4H PRN 07/22/17 07/22/17 History Inhaler] Albuterol Nebulized [Ventolin 2.5 mg INHALATION RT-QID 07/22/17 07/22/17 History Nebulized] Furosemide [Lasix] 20 mg PO DAILY 07/22/17 07/22/17 History Loratadine [Claritin] 10 mg PO DAILY 07/22/17 07/22/17 History metFORMIN HCL [Glucophage] 500 mg PO BID 07/22/17 07/22/17 History Allergies Allergy/AdvReac Type Severity Reaction Status Date / Time codeine Allergy Unknown Verified 07/22/17 12:05 Physical Exam Vitals: Vital Signs Temp Pulse Pulse Resp BP BP Pulse Ox 07/23/17 08:00 98.1 F 92 18 126/55 92 L 07/23/17 04:00 96.9 F L 90 18 156/69 90 L 07/23/17 00:00 97.1 F L 105 H 18 157/67 91 L 07/22/17 20:10 62 07/22/17 20:00 97.1 F L 99 18 182/72 5 L 07/22/17 19:58 64 07/22/17 16:00 98.2 F 99 18 135/78 95 07/22/17 15:32 64 07/22/17 15:24 60 07/22/17 14:09 98.8 F 07/22/17 14:02 111 H 18 166/89 94 L 07/22/17 12:32 62 07/22/17 12:22 62 07/22/17 12:18 115 H 179/84 86 L 07/22/17 12:12 28 H 07/22/17 12:05 99.1 F 120 H 28 H 172/83 91 L Intake and Output 07/22/17 07/23/17 07/23/17 22:59 06:59 14:59 Intake Total 326.17 360 Output Total 250 450 Balance -250 -123.83 360 Intake: Intake, IV Titration 326.17 Amount Heparin Sodium,Porcine/ 326.17 D5w Pmx 25,000 unit In Dextrose/Water 1 500ml. bag @ 10.02 UNITS/KG/HR 19.99 mls/hr IV .Q24H [facility] Rx#:[id number] Oral 360 Output: Urine 250 450 Other: # Voids 2 1 1 # Bowel Movements 0 Weight 105.5 kg PHYSICAL EXAMINATION: HEENT: Head is atraumatic, normocephalic. Pupils equal, round. Neck is supple. There is elevated jugular venous pressure. HEART EXAMINATION: S1 and S2 irregularly irregular CHEST EXAMINATION: And's reveal scattered coarse rhonchi with rales to bilateral bases and diminished air entry to the bases. ABDOMEN: Soft,, firm, distended. Bowel sounds are heard. No organomegaly noted. EXTREMITIES: 2+ peripheral pulses with 2+ evidence of peripheral edema and no calf tenderness noted. NEUROLOGIC patient is awake, alert and oriented -3. . Results 07/23/17 02:56 07/23/17 02:56 Cardiac Enzymes 07/22/17 07/22/17 07/22/17 Range/Units 12:14 12:14 17:54 AST 31 (14-36) U/L CK-MB (CK-2) 2.0 (0.0-2.4) ng/mL Troponin I 0.019 0.030 (0.000-0.034) ng/mL 07/23/17 07/23/17 Range/Units 01:13 02:56 AST 24 (14-36) U/L CK-MB (CK-2) (0.0-2.4) ng/mL Troponin I 0.017 (0.000-0.034) ng/mL Coagulation 07/22/17 07/23/17 Range/Units 12:14 02:56 PT 10.8 (9.0-12.0) sec APTT 23.2 29.8 (22.0-30.0) sec CBC 07/22/17 07/23/17 Range/Units 12:14 02:56 WBC 9.8 5.7 (3.8-10.6) k/uL RBC 4.98 4.64 (3.80-5.40) m/uL Hgb 13.4 12.3 (11.4-16.0) gm/dL Hct 43.6 41.8 (34.0-46.0) % Plt Count 240 193 (150-450) k/uL Comprehensive Metabolic Panel 07/22/17 07/23/17 Range/Units 12:14 02:56 Sodium 138 136 L (137-145) mmol/L Potassium 5.1 4.8 (3.5-5.1) mmol/L Chloride 100 97 L (98-107) mmol/L Carbon Dioxide 29 29 (22-30) mmol/L BUN 21 H 28 H (7-17) mg/dL Creatinine 0.66 0.70 (0.52-1.04) mg/dL Glucose 61 L 267 H (74-99) mg/dL Calcium 8.8 8.5 (8.4-10.2) mg/dL AST 31 24 (14-36) U/L ALT 40 43 (9-52) U/L Alkaline Phosphatase 66 72 (38-126) U/L Total Protein 6.8 6.2 L (6.3-8.2) g/dL Albumin 3.6 3.2 L (3.5-5.0) g/dL Current Medications Generic Name Dose Route Start Last Admin Trade Name Freq PRN Reason Stop Dose Admin Albuterol/Ipratropium 3 ml 07/22/17 16:00 07/22/17 19:58 Duoneb 0.5 Mg-3 Mg/3 Ml Soln INHALATION 3 ml RT-QID [facility] Administration Albuterol/Ipratropium 3 ml 07/22/17 13:29 Duoneb 0.5 Mg-3 Mg/3 Ml Soln INHALATION RT-Q4H PRN shortness of breath Aspirin 325 mg 07/23/17 09:00 07/23/17 09:46 Aspirin PO 325 mg DAILY [facility] Administration Atorvastatin Calcium 40 mg 07/22/17 21:00 07/22/17 22:30 Lipitor PO 40 mg HS [facility] Administration Azithromycin 500 mg 07/23/17 09:00 07/23/17 09:45 Zithromax PO 500 mg DAILY [facility] Administration Budesonide/Formoterol Fumarate 2 puff 07/22/17 20:00 07/22/17 19:58 Symbicort 80-4.5 Mcg Inhaler INHALATION 2 puff RT-BID [facility] Administration Cholecalciferol 4,000 unit 07/23/17 12:00 Vitamin D3 PO 1200 [facility] Cyanocobalamin 500 mcg 07/23/17 12:00 Vitamin B-12 PO 1200 [facility] Famotidine 20 mg 07/22/17 21:00 07/22/17 22:30 Pepcid PO 20 mg HS [facility] Administration Furosemide 40 mg 07/23/17 00:00 07/23/17 09:46 Lasix IV 40 mg Q8HR [facility] Administration Gabapentin 800 mg 07/22/17 16:00 07/23/17 09:45 Neurontin PO 800 mg TID [facility] Administration Heparin Sodium (Porcine) 0 unit 07/22/17 13:37 Heparin IV PER PROTOCOL PRN Low PTT Protocol Hydrochlorothiazide 12.5 mg 07/23/17 09:00 07/23/17 09:45 Hydrodiuril PO 12.5 mg DAILY [facility] Administration Ceftriaxone Sodium 1,000 mg/ 50 mls @ 100 mls/hr 07/23/17 09:00 07/23/17 09: 46 Sodium Chloride IVPB 07/26/17 09:01 100 mls/hr Q24HR [facility] Administration Heparin Sodium/Dextrose 25,000 500 mls @ 19.99 mls/hr 07/22/17 13:45 06:15 unit/ IV Solution IV 25.9 units/kg/hr .Q24H [facility] 51.69 mls/hr Protocol Titration 10.02 UNITS/KG/HR Insulin Detemir 98 unit 07/23/17 09:00 07/23/17 09:46 Levemir SQ 98 unit DAILY [facility] Administration Insulin Human Lispro 0 unit 07/22/17 17:30 07/23/17 07:10 Humalog SQ 8 unit ACHS [facility] Administration Protocol Loratadine 10 mg 07/23/17 09:00 07/23/17 09:45 Claritin PO 10 mg DAILY [facility] Administration Losartan Potassium 100 mg 07/23/17 09:00 07/23/17 09:45 Cozaar PO 100 mg DAILY [facility] Administration Meloxicam 7.5 mg 07/22/17 21:00 07/22/17 22:30 Mobic PO 7.5 mg HS [facility] Administration Methylprednisolone Sodium Succinate 60 mg 07/22/17 18:00 07/23/17 06:07 Solu-Medrol IV 60 mg Q6HR [facility] Administration Metoprolol Succinate 25 mg 07/23/17 11:45 Toprol Xl PO DAILY [facility] Miscellaneous Information 1 each 07/22/17 13:29 Pneumonia Protocol Utilized PO ONCE PRN Per Protocol Nitroglycerin 0.5 inch 07/22/17 13:45 07/23/17 09:47 Nitro-Bid Oint TOPICAL 0.5 inch QID [facility] Administration Pantoprazole Sodium 40 mg 07/22/17 17:30 07/23/17 07:11 Protonix PO 40 mg AC-BID [facility] Administration Intake and Output 07/22/17 07/23/17 07/23/17 22:59 06:59 14:59 Intake Total 326.17 360 Output Total 250 450 Balance -250 -123.83 360 Intake: Intake, IV Titration 326.17 Amount Heparin Sodium,Porcine/ 326.17 D5w Pmx 25,000 unit In Dextrose/Water 1 500ml. bag @ 10.02 UNITS/KG/HR 19.99 mls/hr IV .Q24H [facility] Rx#:[id number] Oral 360 Output: Urine 250 450 Other: # Voids 2 1 1 # Bowel Movements 0 Weight 105.5 kg 07/23/17 02:56 07/23/17 02:56 EKG Interpretations (text) EKG shows atrial fibrillation with rapid ventricular response. Assessment and Plan Plan: Assessment and plan #1 diastolic congestive heart failure acute on chronic #2 atrial fibrillation with rapid ventricular response, appears to be of new onset. #3 exacerbation of COPD #4 history of lung cancer status post left lower lobectomy and chemotherapy with radiation #5 diabetes #6 hypertension #7 hyperlipidemia #8 sleep apnea Plan We will decrease aspirin 81 mg daily, increase Lasix to 80 mg IV twice a day, discontinue IV Cardizem and resume the patient's Toprol. Continue losartan 100 mg daily, and is currently on IV heparin, she has been educated regarding the importance of initiating anticoagulation for stroke prevention. We will check to see if the patient has coverage for one of the new her anticoagulants. Further recommendations to follow. DNP note has been reviewed, I agree with a documented findings and plan of care. Patient was seen and examined.
[2017-07-23] MEDS ORDERED: FUROSEMIDE 10 MG/ML 10 ML VIAL IV SCH (12:15)
[2017-07-23] MEDS ORDERED: INSULIN REGULAR BOLUS (FROM DRIP BAG) IV ONE (13:03)
[2017-07-23 13:09] LABS: Glucose,Whole Blood 317 mg/dL (75-99)
[2017-07-23 14:40] LABS: Glucose,Whole Blood 267 mg/dL (75-99)
[2017-07-23] MEDS: HEPARIN SODIUM,PORCINE/D5W PMX 25,000 UNIT in DEXTROSE/WATER 1 500ML.BAG IV SCH (15:22)
[2017-07-23] MEDS: INSULIN REGULAR 100 UNIT in SODIUM CHLORIDE 0.9% 100 ML IV SCH (15:25)
[2017-07-23 15:41] LABS: Glucose,Whole Blood 301 mg/dL (75-99)
[2017-07-23 16:10] LABS: Glucose,Whole Blood 243 mg/dL (75-99)
[2017-07-23] MEDS: FUROSEMIDE 250 MG in SODIUM CHLORIDE 0.9% 225 ML IVP SCH (18:28)
[2017-07-23 18:32] LABS: Glucose,Whole Blood 195 mg/dL (75-99)
[2017-07-23 19:51] LABS: Glucose,Whole Blood 178 mg/dL (75-99)
[2017-07-23] MEDS: FAMOTIDINE 20 MG TAB PO SCH (20:48)
[2017-07-23] MEDS: MELOXICAM 7.5 MG TAB PO SCH (20:48)
[2017-07-23] MEDS: ATORVASTATIN 40 MG TAB PO SCH (20:48)
[2017-07-23] MEDS: SPIRONOLACTONE 25 MG TAB PO SCH (20:56)
[2017-07-23 21:58] LABS: Glucose,Whole Blood 215 mg/dL (75-99)
[2017-07-23 23:56] LABS: Glucose,Whole Blood 214 mg/dL (75-99)
[2017-07-24 01:54] LABS: Glucose,Whole Blood 200 mg/dL (75-99)
[2017-07-24] MEDS: INSULIN REGULAR 100 UNIT in SODIUM CHLORIDE 0.9% 100 ML IV SCH ×2 (02:07→23:43)
[2017-07-24 03:18] LABS: Basophils % (A) 0 %; CH 26.2; CHCM 29.8; Eosinophils % (A) 0 %; HCT 41.2 % (34.0-46.0); HDW 3.18; HGB 12.5 gm/dL (11.4-16.0); Hypochromasia Marked; Luc # (Auto) 0.09; Luc % (Auto) 1; Lymphocytes # (A) 0.4 k/uL (1.0-4.8); Lymphocytes % (A) 3 %; MCH 26.7 pg (25.0-35.0); MCHC 30.4 g/dL (31.0-37.0); MCV 87.9 fL (80.0-100.0); Monocytes # (A) 0.4 k/uL (0-1.0); Monocytes % (A) 3 %; Neutrophils # (A) 11.7 k/uL (1.3-7.7); Neutrophils % (A) 93 %; RBC 4.69 m/uL (3.80-5.40); RDW 14.2 % (11.5-15.5); WBC 12.6 k/uL (3.8-10.6); WBC (Perox) 12.21
[2017-07-24 03:30] LABS: Calcium 8.6 mg/dL (8.4-10.2); Potassium 4.7 mmol/L (3.5-5.1); Total Bilirubin 0.2 mg/dL (0.2-1.3); Total Protein 6.5 g/dL (6.3-8.2)
[2017-07-24 04:15] LABS: Glucose,Whole Blood 239 mg/dL (75-99)
[2017-07-24 05:11] LABS: INR 1.2 (<1.2); Prothrombin Time 12.2 sec (9.0-12.0)
--- NOTE | 2017-07-24 05:31 | CT ---
EXAM: CT Head Without Intravenous Contrast CLINICAL HISTORY: Reason: Stroke Symptoms TECHNIQUE: Axial computed tomography images of the head/brain without intravenous contrast. CTDI is 57.40 mGy and DLP is 1098.80 mGy-cm. This CT exam was performed using one or more of the following dose reduction techniques: automated exposure control, adjustment of the mA and/or kV according to patient size, and/or use of iterative reconstruction technique. COMPARISON: 02/13/[address] FINDINGS: Brain: Mild atrophy and presumed chronic small vessel ischemic changes are again present, the latter perhaps slightly more conspicuous currently. No bleed, midline shift or mass effect. No identifiable acute or recent territorial infarct. Ventricles: No hydrocephalus. Bones/joints: No acute fracture. Soft tissues: Unremarkable. Vasculature: Intracranial atherosclerosis is again present. Sinuses: New left maxillary sinus air-fluid level with mild mucosal thickening, along with new scattered opacities involving several left ethmoid air cells, and minimally within both frontal sinuses. Now included is a tiny mucous retention cyst or polyp inferiorly within the right maxillary sinus. Mastoid air cells: Unremarkable. No mastoid effusion. IMPRESSION: 1. No identifiable acute or recent territorial infarct, which may initially be inapparent by CT. 2. Mild presumed chronic small vessel ischemic changes, stable or slightly more conspicuous. 3. New paranasal sinus disease including left maxillary sinus air-fluid level, as above.
[2017-07-24] MEDS ORDERED: RX INFO: IV CONTRAST WAS GIVEN 1 EACH MISC MISCELLANE PRN (05:40)
[2017-07-24 06:00] LABS: Glucose,Whole Blood 209 mg/dL (75-99)
--- NOTE | 2017-07-24 06:42 | CT ---
EXAM: CT Angiography Head With Intravenous Contrast CLINICAL HISTORY: Reason: code stroke TECHNIQUE: Axial computed tomographic angiography images of the head with intravenous contrast using CT angiography protocol. CTDI is mGy 7.1, 193.5, 8.9 and DLP is 446 mGy-cm. This CT exam was performed using one or more of the following dose reduction techniques: automated exposure control, adjustment of the mA and/or kV according to patient size, and/or use of iterative reconstruction technique. MIP reconstructed images were created and reviewed. COMPARISON: No relevant prior studies available. FINDINGS: Right internal carotid artery: Right anterior cerebral artery: Unremarkable. No occlusion. No aneurysm. Right middle cerebral artery: Unremarkable. No occlusion. No aneurysm. Right posterior cerebral artery: Unremarkable. No occlusion. No aneurysm. Right vertebral artery: Unremarkable. No dissection or occlusion. Left internal carotid artery: Left anterior cerebral artery: Unremarkable. No occlusion. No aneurysm. Left middle cerebral artery: No occlusion. No aneurysm. Left posterior cerebral artery: Unremarkable. No occlusion. No aneurysm. Left vertebral artery: Unremarkable. No dissection or occlusion. Basilar artery: Unremarkable. No occlusion. No aneurysm. Sinuses: Paranasal sinus disease with air-fluid level in the left maxillary sinus. IMPRESSION: No evidence of large vessel occlusion or aneurysm. EXAM: CT Angiography Neck With Intravenous Contrast CLINICAL HISTORY: Reason: code stroke TECHNIQUE: Axial computed tomographic angiography images of the neck with intravenous contrast using CT angiography protocol. CTDI is mGy 7.1, 193.5, 8.9 and DLP is 446 mGy-cm. This CT exam was performed using one or more of the following dose reduction techniques: automated exposure control, adjustment of the mA and/or kV according to patient size, and/or use of iterative reconstruction technique. MIP reconstructed images were created and reviewed. COMPARISON: No relevant prior studies available. FINDINGS: VASCULATURE: Right common carotid artery: No significant stenosis. No dissection or occlusion. Right internal carotid artery: Atherosclerotic disease with mild narrowing of the proximal right ICA. No dissection or occlusion. Right external carotid artery: No occlusion. Right vertebral artery: Unremarkable. No dissection or occlusion. Left common carotid artery: Unremarkable. No significant stenosis. No dissection or occlusion. Left internal carotid artery: Atherosclerotic disease with mild narrowing of the proximal left ICA. No dissection or occlusion. Left external carotid artery: Unremarkable. No occlusion. Left vertebral artery: Narrowing at the origin of the left vertebral artery. No dissection or occlusion. NECK: Bones/joints: No acute fracture. Soft tissues: Unremarkable as visualized. Lymph nodes: Enlarged mediastinal lymph nodes. Thyroid: Heterogeneous thyroid with probable nodules. Lung apices: Patchy groundglass densities in the visualized lung apices, including a slightly nodular focus in the right upper lobe measuring 11 mm (image [id number]). CAROTID STENOSIS REFERENCE USING NASCET CRITERIA: % ICA stenosis = (1 - narrowest ICA diameter/diameter of distal cervical ICA) x 100. Mild - <50% stenosis. Moderate - 50-69% stenosis. Severe - 70-94% stenosis. Near occlusion - 95-99% stenosis. Occluded - 100% stenosis. IMPRESSION: 1. No evidence of occlusion or dissection. 2. Patchy groundglass densities in the visualized lung apices, including a slightly nodular 11 mm focus in the right upper lobe. 3. Enlarged mediastinal lymph nodes. 4. Heterogeneous thyroid with probable nodules.
[2017-07-24] MEDS: PANTOPRAZOLE 40 MG TABLET PO SCH ×2 (07:00→17:36)
[2017-07-24] MEDS: methylPREDNISolone SOD SUCCI 125 MG/2 ML VIAL IV SCH ×4 (07:00→23:13)
[2017-07-24] MEDS: INSULIN LISPRO (humaLOG) 300 UNIT/3 ML VIAL SQ SCH ×3 (07:00→17:36)
[2017-07-24 08:35] LABS: Glucose,Whole Blood 238 mg/dL (75-99)
[2017-07-24] MEDS: SYMBICORT 80-4.5 MCG INHALER INHALATION SCH ×2 (08:37→19:31)
[2017-07-24] MEDS: IPRATROPIUM-ALBUTEROL 3 ML NEB INHALATION SCH ×4 (08:37→19:31)
[2017-07-24] MEDS: ASPIRIN 81 MG PO SCH (08:57)
[2017-07-24] MEDS: GABAPENTIN 400 MG CAP PO SCH ×3 (08:58→20:35)
[2017-07-24] MEDS: LORATADINE 10 MG TAB PO SCH (08:58)
[2017-07-24] MEDS: HYDROCHLOROTHIAZIDE 12.5 MG CAP PO SCH (08:58)
[2017-07-24] MEDS: AZITHROMYCIN 500 MG TAB PO SCH (08:58)
[2017-07-24] MEDS: NITROGLYCERIN OINT 1 INCH/GM PACKET TOPICAL SCH ×4 (08:59→20:35)
[2017-07-24] MEDS: METOPROLOL SUCCINATE (ER) 25 MG TAB.ER.24H PO SCH (08:59)
[2017-07-24] MEDS: LOSARTAN 50 MG TAB PO SCH (08:59)
[2017-07-24] MEDS: SPIRONOLACTONE 25 MG TAB PO SCH ×2 (09:00→20:35)
[2017-07-24 10:25] LABS: Glucose,Whole Blood 190 mg/dL (75-99)
--- NOTE | 2017-07-24 10:28 | P.PN ---
Subjective Progress Note Date: 07/24/17 This is a 71-year-old female patient with past medical history of COPD, lung cancer status post left lower lobectomy with chemoradiation, diabetes mellitus, hypertension, GERD who presented to the emergency room from her PCPs office Dr. Joan Stringer with complaints of increased shortness of breath since yesterday and a mild productive cough with small amount of thick yellow sputum. She denied fever or chills, chest congestion, hemoptysis, or wheezing. She also noted increased swelling in bilateral arms and legs, which is new to her. She denied chest pain or orthopnea. Patient is a remote smoker, with a 25-pack- year history, quit many years ago. Her symptoms also included generalized weakness, which is significantly worse today. When she presented to her PCPs office, she was told she had pneumonia. On presentation to the emergency room patient was found to be in A. fib with RVR with a rate of 120 BPM and hypoxic with O2 sat of 86% on 2 L per nasal cannula. She does wear home O2 at bedtime at 2 L. She was initiated on Cardizem drip for rate control and heparin drip per protocol. She sees Dr. Ledezma for management of her chronic COPD, and she is on Advair 250/50 and albuterol nebulized treatments as well as her rescue inhaler at home. Her last admission for COPD exacerbation and tracheobronchitis was in November 2016. Of note she was also found to be hypoglycemic in the emergency room with a blood sugar of 61, which was treated per hypoglycemia protocol. Patient is on a combination of glimepiride, metformin, NovoLog flex pen and Tresiba insulin at home. Her capillary blood sugar was rechecked after crackers and juice and is now at 74 mg/dL. Patient is awake alert, in no acute distress. On examination her lungs sounds scattered end expiratory wheezes throughout the lung castro with absent lung sounds over left lower lobe. No significant sputum production, no rhonchi. Chest x-ray showed cardiomegaly with prominent central vascularity and prominent interstitium. Left lower lobe density could be related to her history of left lower lung lobectomy. Patient has no leukocytosis, no signs of chest congestion or fever. No chills or night sweats. ProBNP 2680, patient is on Lasix 40 mg every 8 hours per attending. Patient has a history of obstructive sleep apnea for which she wears CPAP device at home but she is unsure of her home settings. Family will be asked to bring the home CPAP unit here. On 07/23/2017 patient is seen in follow-up. She is sleeping sitting up on her bedside table. She denied fever or chills, she denied coughing or any sputum production. Lung sounds are diminished with end expiratory wheezes on forced exhale maneuver. She is wearing 5 L oxygen per nasal cannula with O2 saturations around 90%. Chest x-ray from 07/23/2017 has been reviewed. Showed increased pulmonary vascularity, cardiomegaly, and retrocardiac density. She continues on Cardizem drip at 5 mg per hour, she remains in A. fib with a better controlled rate, around 89 BPM today. Continues on heparin drip for anticoagulation. IV Lasix with mild diuresis, she has a -573 mL balance overnight over the last 24 hours. She continues on IV steroids and on antibiotics in the form of Zithromax and Rocephin. She denies any chest pain. He states her breathing is slightly better today. Her bilateral lower leg edema show slight improvement. On 07/24/2017 the patient is being seen for a follow-up. The patient is still being treated for acute CHF, atrial fibrillation an acute COPD exacerbation. Note that around 3:57 AM in the morning the patient had an event where she woke up confused and disoriented. Code stroke was called and the patient was taken for a CAT scan that showed no acute abnormalities in the head and there was no evidence of any acute or recent territorial infarct. CT angios the brain was also done that showed no vascular abnormalities of occlusion. This lasted only for 15 minutes and the patient recovered. During this time the patient did not have any hypotension, cardiac arrhythmia or hypoglycemia. Note that the patient has obstructive sleep apnea and she has not been using his CPAP machine during her current hospital stay. For now, the patient is still in atrial fibrillation.. Have cardiac rhythm is atrial fibrillation. The patient is still on Lasix drip for diuresis. She is producing adequate amount of urine output. Her COPD exacerbation is also being treated with a combination of DuoNeb nebulized treatments around the clock and IV Solu-Medrol. She is also on examination Rocephin and Zithromax. She is post left lower lobe resection for a previous history of non-small cell lung cancer. She is obese. She still has extensive edema in lower eczematous bilaterally. Objective - Vital Signs Vital signs: Vital Signs Temp 97.0 F L 07/24/17 08:41 Pulse 72 07/24/17 08:47 Resp 18 07/24/17 08:41 BP 133/63 07/24/17 08:41 Pulse Ox 98 07/24/17 08:41 Intake & Output 07/23/17 07/24/17 07/24/17 18:59 06:59 18:59 Intake Total 548.138 749.775 243.719 Output Total 300 650 Balance 248.138 99.775 243.719 Weight 103.4 kg Intake: Intake, IV Titration 188.138 569.775 63.719 Amount Heparin Sodium,Porcine/ 173.83 500.000 D5w Pmx 25,000 unit In Dextrose/Water 1 500ml. bag @ 10.02 UNITS/KG/HR 19.99 mls/hr IV .Q24H [facility] Rx#:[id number] Insulin Regular 100 unit 14.308 69.775 13.719 In Sodium Chloride 0.9% 100 ml @ Titrate IV .Q0M [facility] Rx#:[id number] cefTRIAXone 1,000 mg In 50 Sodium Chloride 0.9% 50 ml @ 100 mls/hr IVPB Q24HR [facility] Rx#:[id number] Oral 360 180 180 Output: Urine 300 650 Other: Voiding Method Toilet # Voids 3 300 # Bowel Movements 1 - Exam Constitutional General appearance: average body habitus, no acute distress - EENT Eyes: PERRLA, dentition normal ENT: NA/AT, normal oropharynx - Neck Neck: normal ROM Carotids: bilateral: upstroke normal Thyroid: bilateral: normal size - Respiratory Respiratory: bilateral: diminished (Left lower lobe), dullness (Left lower lobe) , wheezing, prolonged expiration - Cardiovascular Rhythm: irregularly irregular, secondary to atrial fibrillation and the patient has +1-2 pitting edema in the lower extremities bilaterally. Heart sounds: normal: S1, S2 ankle Peripheral Edema: bilateral: 1+ foot Peripheral Edema: bilateral: 1+ dorsalis pedis Peripheral Pulses: bilateral: Normal radial pulse Peripheral Pulses: bilateral: Normal - Gastrointestinal General gastrointestinal: no organomegaly, soft, no tenderness - Neurologic Neurologic: CNII-XII intact - Musculoskeletal Musculoskeletal: strength equal bilaterally - Psychiatric Psychiatric: A&O x's 3, appropriate affect, intact judgment & insigh - Labs CBC & Chem 7: 07/24/17 02:53 07/24/17 02:53 Labs: Abnormal Lab Results - Last 24 Hours (Table) 07/23/17 07/23/17 07/23/17 Range/Units 11:39 12:07 12:59 WBC (3.8-10.6) k/uL MCHC (31.0-37.0) g/dL Neutrophils # (1.3-7.7) k/uL Lymphocytes # (1.0-4.8) k/uL PT (9.0-12.0) sec INR (<1.2) APTT 33.5 H (22.0-30.0) sec Sodium (137-145) mmol/L Chloride (98-107) mmol/L Carbon Dioxide (22-30) mmol/L BUN (7-17) mg/dL Creatinine (0.52-1.04) mg/dL Glucose (74-99) mg/dL POC Glucose (mg/dL) 404 H 317 H (75-99) mg/dL Albumin (3.5-5.0) g/dL 07/23/17 07/23/17 07/23/17 Range/Units 14:14 15:07 16:08 WBC (3.8-10.6) k/uL MCHC (31.0-37.0) g/dL Neutrophils # (1.3-7.7) k/uL Lymphocytes # (1.0-4.8) k/uL PT (9.0-12.0) sec INR (<1.2) APTT (22.0-30.0) sec Sodium (137-145) mmol/L Chloride (98-107) mmol/L Carbon Dioxide (22-30) mmol/L BUN (7-17) mg/dL Creatinine (0.52-1.04) mg/dL Glucose (74-99) mg/dL POC Glucose (mg/dL) 267 H 301 H 243 H (75-99) mg/dL Albumin (3.5-5.0) g/dL 1007/23/17 07/23/17 Range/Units 18:06 19:13 19:50 WBC (3.8-10.6) k/uL MCHC (31.0-37.0) g/dL Neutrophils # (1.3-7.7) k/uL Lymphocytes # (1.0-4.8) k/uL PT (9.0-12.0) sec INR (<1.2) APTT 34.0 H (22.0-30.0) sec Sodium (137-145) mmol/L Chloride (98-107) mmol/L Carbon Dioxide (22-30) mmol/L BUN (7-17) mg/dL Creatinine (0.52-1.04) mg/dL Glucose (74-99) mg/dL POC Glucose (mg/dL) 195 H 178 H (75-99) mg/dL Albumin (3.5-5.0) g/dL 07/23/17 07/23/17 07/24/17 Range/Units 21:57 23:55 01:53 WBC (3.8-10.6) k/uL MCHC (31.0-37.0) g/dL Neutrophils # (1.3-7.7) k/uL Lymphocytes # (1.0-4.8) k/uL PT (9.0-12.0) sec INR (<1.2) APTT (22.0-30.0) sec Sodium (137-145) mmol/L Chloride (98-107) mmol/L Carbon Dioxide (22-30) mmol/L BUN (7-17) mg/dL Creatinine (0.52-1.04) mg/dL Glucose (74-99) mg/dL POC Glucose (mg/dL) 215 H 214 H 200 H (75-99) mg/dL Albumin (3.5-5.0) g/dL 07/24/17 07/24/17 07/24/17 Range/Units 02:53 02:53 02:53 WBC 12.6 H (3.8-10.6) k/uL MCHC 30.4 L (31.0-37.0) g/dL Neutrophils # 11.7 H (1.3-7.7) k/uL Lymphocytes # 0.4 L (1.0-4.8) k/uL PT (9.0-12.0) sec INR (<1.2) APTT >200.0 H* (22.0-30.0) sec Sodium 132 L (137-145) mmol/L Chloride 92 L (98-107) mmol/L Carbon Dioxide 32 H (22-30) mmol/L BUN 46 H (7-17) mg/dL Creatinine 1.20 H (0.52-1.04) mg/dL Glucose 203 H (74-99) mg/dL POC Glucose (mg/dL) (75-99) mg/dL Albumin 3.3 L (3.5-5.0) g/dL 07/24/17 07/24/17 07/24/17 Range/Units 02:53 03:59 05:55 WBC (3.8-10.6) k/uL MCHC (31.0-37.0) g/dL Neutrophils # (1.3-7.7) k/uL Lymphocytes # (1.0-4.8) k/uL PT 12.2 H (9.0-12.0) sec INR 1.2 H (<1.2) APTT (22.0-30.0) sec Sodium (137-145) mmol/L Chloride (98-107) mmol/L Carbon Dioxide (22-30) mmol/L BUN (7-17) mg/dL Creatinine (0.52-1.04) mg/dL Glucose (74-99) mg/dL POC Glucose (mg/dL) 239 H 209 H (75-99) mg/dL Albumin (3.5-5.0) g/dL 07/24/17 Range/Units 08:32 WBC (3.8-10.6) k/uL MCHC (31.0-37.0) g/dL Neutrophils # (1.3-7.7) k/uL Lymphocytes # (1.0-4.8) k/uL PT (9.0-12.0) sec INR (<1.2) APTT (22.0-30.0) sec Sodium (137-145) mmol/L Chloride (98-107) mmol/L Carbon Dioxide (22-30) mmol/L BUN (7-17) mg/dL Creatinine (0.52-1.04) mg/dL Glucose (74-99) mg/dL POC Glucose (mg/dL) 238 H (75-99) mg/dL Albumin (3.5-5.0) g/dL Microbiology - Last 24 Hours (Table) 07/22/17 12:14 Blood Culture - Preliminary Blood No Growth after 24 hours Assessment and Plan Plan: Assessment: #1. Acute COPD exacerbation with an element of tracheobronchitis, on home O2 at bedtime, on IV Solu-Medrol, inhaled bronchodilators and Symbicort #2. Left lower lobe infiltrate suggestive of pneumonia, atelectasis versus effusion in the patient with a history of left lower lung lobectomy for lung cancer. Could represent a chronic finding. Small pleural effusion on the left was difficult to exclude. #3. Acute on chronic hypoxic respiratory failure secondary to COPD exacerbation and an element of congestive heart failure, proBNP is elevated at 2680 pG/mL and increased peripheral edema. 2-D echo results show EF between 55 and 60% with moderate to severe pulmonary hypertension with right ventricular systolic pressure of 57 mmHg. #4. History of lung cancer with left lobectomy and chemotherapy, unsure of the radiation therapy hypertension #5. History of coronary artery disease and stent placement, negative troponins 3 #6. Remote nicotine dependence, in remission #7. Underlying history of diabetes mellitus, with hypoglycemia, further episodes of hypoglycemia overnight #8. History of hypertension #9. Gastroesophageal reflux disease #10. Memory impairment #11 CHF exacerbation with increased lower extremity edema and the patient is currently on Lasix drip at 10 mg an hour #12 obstructive sleep apnea #13 episode of confusion which recovered without any residual neurologic deficits Plan I asked the patient to bring in her CPAP machine from home and this can be easily use here in the hospital. Meanwhile we'll try to give her one about BiPAP machines and she'll be used using a BiPAP pressure of 10/5 cm of water and FiO2 flow to maintain a saturation above 90% overnight. She'll be kept on Lasix drip. Continue current medications of bronchodilators and steroids and antibiotics. Repeat chest x-ray in the morning. Still has extensive edema in lower oximetry is bilaterally. We'll continue to follow.
--- NOTE | 2017-07-24 11:19 | P.PN ---
Subjective Patient was noted to be more confused last night and disoriented around 4 in the morning. Code stroke was called and a stat computed tomography scan of the brain showed no acute intracranial findings. The telemetry neuro film editor supervisor was consulted and ordered a CT angiogram that showed no significant findings either. Today, patient was lethargic but easily arousable. She was oriented to herself and to the place. There is no focal neurological deficit. Objective - Vital Signs Vital signs: Vital Signs Temp 97.0 F L 07/24/17 08:41 Pulse 72 07/24/17 08:47 Resp 18 07/24/17 08:41 BP 133/63 07/24/17 08:41 Pulse Ox 98 07/24/17 08:41 Intake & Output 07/23/17 07/24/17 07/24/17 18:59 06:59 18:59 Intake Total 548.138 749.775 256.209 Output Total 300 650 Balance 248.138 99.775 256.209 Weight 103.4 kg Intake: Intake, IV Titration 188.138 569.775 76.209 Amount Heparin Sodium,Porcine/ 173.83 500.000 D5w Pmx 25,000 unit In Dextrose/Water 1 500ml. bag @ 10.02 UNITS/KG/HR 19.99 mls/hr IV .Q24H [facility] Rx#:[id number] Insulin Regular 100 unit 14.308 69.775 26.209 In Sodium Chloride 0.9% 100 ml @ Titrate IV .Q0M [facility] Rx#:[id number] cefTRIAXone 1,000 mg In 50 Sodium Chloride 0.9% 50 ml @ 100 mls/hr IVPB Q24HR [facility] Rx#:[id number] Oral 360 180 180 Output: Urine 300 650 Other: Voiding Method Toilet # Voids 3 300 # Bowel Movements 1 - Exam General: The patient is awake and alert, in no distress Eye: there is normal conjunctiva bilaterally. Neck: The neck is supple, there is no JVD. Cardiovascular: Normal S1-S2, no S3-S4, no murmurs. Respiratory: Lungs clear to auscultation bilaterally Gastrointestinal: Abdomen is soft, nontender Musculoskeletal: There is no pedal edema. Neurological:. Speech is normal. Skin: Skin is warm and dry - Labs CBC & Chem 7: 07/24/17 02:53 07/24/17 02:53 Labs: Abnormal Lab Results - Last 24 Hours (Table) 07/23/17 07/23/17 07/23/17 Range/Units 11:39 12:07 12:59 WBC (3.8-10.6) k/uL MCHC (31.0-37.0) g/dL Neutrophils # (1.3-7.7) k/uL Lymphocytes # (1.0-4.8) k/uL PT (9.0-12.0) sec INR (<1.2) APTT 33.5 H (22.0-30.0) sec Sodium (137-145) mmol/L Chloride (98-107) mmol/L Carbon Dioxide (22-30) mmol/L BUN (7-17) mg/dL Creatinine (0.52-1.04) mg/dL Glucose (74-99) mg/dL POC Glucose (mg/dL) 404 H 317 H (75-99) mg/dL Albumin (3.5-5.0) g/dL 07/23/17 07/23/17 07/23/17 Range/Units 14:14 15:07 16:08 WBC (3.8-10.6) k/uL MCHC (31.0-37.0) g/dL Neutrophils # (1.3-7.7) k/uL Lymphocytes # (1.0-4.8) k/uL PT (9.0-12.0) sec INR (<1.2) APTT (22.0-30.0) sec Sodium (137-145) mmol/L Chloride (98-107) mmol/L Carbon Dioxide (22-30) mmol/L BUN (7-17) mg/dL Creatinine (0.52-1.04) mg/dL Glucose (74-99) mg/dL POC Glucose (mg/dL) 267 H 301 H 243 H (75-99) mg/dL Albumin (3.5-5.0) g/dL 07/23/17 07/23/17 07/23/17 Range/Units 18:06 19:13 19:50 WBC (3.8-10.6) k/uL MCHC (31.0-37.0) g/dL Neutrophils # (1.3-7.7) k/uL Lymphocytes # (1.0-4.8) k/uL PT (9.0-12.0) sec INR (<1.2) APTT 34.0 H (22.0-30.0) sec Sodium (137-145) mmol/L Chloride (98-107) mmol/L Carbon Dioxide (22-30) mmol/L BUN (7-17) mg/dL Creatinine (0.52-1.04) mg/dL Glucose (74-99) mg/dL POC Glucose (mg/dL) 195 H 178 H (75-99) mg/dL Albumin (3.5-5.0) g/dL 07/23/17 07/23/17 07/24/17 Range/Units 21:57 23:55 01:53 WBC (3.8-10.6) k/uL MCHC (31.0-37.0) g/dL Neutrophils # (1.3-7.7) k/uL Lymphocytes # (1.0-4.8) k/uL PT (9.0-12.0) sec INR (<1.2) APTT (22.0-30.0) sec Sodium (137-145) mmol/L Chloride (98-107) mmol/L Carbon Dioxide (22-30) mmol/L BUN (7-17) mg/dL Creatinine (0.52-1.04) mg/dL Glucose (74-99) mg/dL POC Glucose (mg/dL) 215 H 214 H 200 H (75-99) mg/dL Albumin (3.5-5.0) g/dL 07/24/17 07/24/17 07/24/17 Range/Units 02:53 02:53 02:53 WBC 12.6 H (3.8-10.6) k/uL MCHC 30.4 L (31.0-37.0) g/dL Neutrophils # 11.7 H (1.3-7.7) k/uL Lymphocytes # 0.4 L (1.0-4.8) k/uL PT (9.0-12.0) sec INR (<1.2) APTT >200.0 H* (22.0-30.0) sec Sodium 132 L (137-145) mmol/L Chloride 92 L (98-107) mmol/L Carbon Dioxide 32 H (22-30) mmol/L BUN 46 H (7-17) mg/dL Creatinine 1.20 H (0.52-1.04) mg/dL Glucose 203 H (74-99) mg/dL POC Glucose (mg/dL) (75-99) mg/dL Albumin 3.3 L (3.5-5.0) g/dL 07/24/17 07/24/17 07/24/17 Range/Units 02:53 03:59 05:55 WBC (3.8-10.6) k/uL MCHC (31.0-37.0) g/dL Neutrophils # (1.3-7.7) k/uL Lymphocytes # (1.0-4.8) k/uL PT 12.2 H (9.0-12.0) sec INR 1.2 H (<1.2) APTT (22.0-30.0) sec Sodium (137-145) mmol/L Chloride (98-107) mmol/L Carbon Dioxide (22-30) mmol/L BUN (7-17) mg/dL Creatinine (0.52-1.04) mg/dL Glucose (74-99) mg/dL POC Glucose (mg/dL) 239 H 209 H (75-99) mg/dL Albumin (3.5-5.0) g/dL 07/24/17 07/24/17 Range/Units 08:32 10:22 WBC (3.8-10.6) k/uL MCHC (31.0-37.0) g/dL Neutrophils # (1.3-7.7) k/uL Lymphocytes # (1.0-4.8) k/uL PT (9.0-12.0) sec INR (<1.2) APTT (22.0-30.0) sec Sodium (137-145) mmol/L Chloride (98-107) mmol/L Carbon Dioxide (22-30) mmol/L BUN (7-17) mg/dL Creatinine (0.52-1.04) mg/dL Glucose (74-99) mg/dL POC Glucose (mg/dL) 238 H 190 H (75-99) mg/dL Albumin (3.5-5.0) g/dL Microbiology - Last 24 Hours (Table) 07/22/17 12:14 Blood Culture - Preliminary Blood No Growth after 24 hours Assessment and Plan Plan: 1. Acute and chronic hypoxic respiratory failure: multifactorial likely related to COPD exacerbation, atrial fibrillation with rapid ventricular response, CHF exacerbation and bronchitis 2. Acute COPD exacerbation patient is been placed on IV Solu-Medrol with bronchodilators. We'll monitor. Pulmonary service is following 3. Acute tracheobronchitis: Patient has been started on Rocephin and azithromycin. 4. Atrial fibrillation with rapid ventricular response and new onset: Patient is been placed on IV Cardizem drip and IV heparin. Cardiology has been consulted. Heart rate is better controlled 5. Acute CHF exacerbation: Continue IV Lasix. Echo shows an EF of 55-60%. There is moderate to severe pulmonary hypertension. And a small pericardial effusion. 6. History of lung cancer status post left lower lobectomy and chemotherapy 7. Diabetes mellitus type 2 with hypoglycemia: We'll place patient on sliding scale coverage and monitor closely. hold oral hypoglycemics. Resume Tresiba. Hyperglycemia secondary to steroids. Continue sliding scale coverage 8. History of coronary artery disease with previous angioplasty and stent placement 9. Episode of mental status change now resolved. Stroke code was called and telemetry neuro film editor supervisor was consult. Computed tomography scan of the brain showed no acute intracranial findings. CT angiogram showed no hemodynamically significant stenosis. Neurology consulted. GI prophylaxis Protonix and DVT prophylaxis IV heparin
[2017-07-24] MEDS: CHOLECALCIFEROL 1,000 UNIT TAB PO SCH (12:12)
[2017-07-24] MEDS: CYANOCOBALAMIN 500 MCG TAB PO SCH (12:12)
[2017-07-24 12:17] LABS: Glucose,Whole Blood 172 mg/dL (75-99)
--- NOTE | 2017-07-24 13:22 | P.PN ---
Subjective Progress Note Date: 07/24/17 Principal diagnosis: Shortness of breath This is a pleasant 71-year-old female with history of COPD, lung CA with prior left lower lobectomy, status post chemotherapy and radiation, sleep apnea, hypertension, diabetes, GERD, who presented to the hospital with symptoms of progressively worsening shortness of breath. Positive PND and orthopnea. Patient also has significant amount of peripheral edema which she states that she has had for several months. Prior history of smoking. On presentation here EKG showed atrial fibrillation with a rapid ventricular response, was initiated on IV Cardizem drip. According to the patient, she has never been told in the past to have atrial fibrillation or congestive cardiac failure. She does not see a green chain worker in the office. Chest x-ray on admission revealed cardiomegaly and possible pulmonary venous hypertension as well as interstitial edema. Possible left lower lobe atelectasis versus pneumonia. Echocardiogram with Doppler study was performed which revealed a small pericardial effusion moderate concentric LVH, ejection fraction 55-60%. Moderate to severe pulmonary hypertension. Repeat chest x-ray this morning shows persistence in interstitial edema, possible pneumonia, small effusion. Blood pressure on arrival 172/80, heart rate 120, 91% on 4 L of oxygen with a temperature of 99.1. Today she is afebrile, blood pressure 126/50, heart rate 90, 92% on 5 L of oxygen. White blood cell count 5.7, hemoglobin 12.3, platelet count 193. Sodium 136, potassium 4.8, BUN 28, creatinine 0.7. Troponin 0.019, 0.030, 0.017. BNP level 2680. was initiated on IV Lasix in the emergency room, she is on 40 mg IV every 8 hour. Patient is diuresing from the IV Lasix, small amounts. Patient does state this morning that her breathing is somewhat improved, however continues to feel significantly short of breath, continues to have significant bilateral peripheral edema and abdominal swelling. 07/24/2017 Patient was initiated on IV Lasix drip diuresed well through the night last night, weight is down 2 kg today. We also initiated the patient on Eliquis 5 mg one tablet by mouth twice a day for anticoagulation, she is covered for this medication. Objective - Vital Signs Vital signs: Vital Signs Temp 97.0 F L 07/24/17 08:41 Pulse 82 07/24/17 11:15 Resp 18 10/14/17 11:15 BP 145/70 07/24/17 11:15 Pulse Ox 93 L 07/24/17 11:15 Intake & Output 07/23/17 07/24/17 07/24/17 18:59 06:59 18:59 Intake Total 548.138 749.775 262.942 Output Total 300 650 Balance 248.138 99.775 262.942 Weight 103.4 kg Intake: Intake, IV Titration 188.138 569.775 82.942 Amount Heparin Sodium,Porcine/ 173.83 500.000 D5w Pmx 25,000 unit In Dextrose/Water 1 500ml. bag @ 10.02 UNITS/KG/HR 19.99 mls/hr IV .Q24H [facility] Rx#:[id number] Insulin Regular 100 unit 14.308 69.775 32.942 In Sodium Chloride 0.9% 100 ml @ Titrate IV .Q0M [facility] Rx#:[id number] cefTRIAXone 1,000 mg In 50 Sodium Chloride 0.9% 50 ml @ 100 mls/hr IVPB Q24HR [facility] Rx#:[id number] Oral 360 180 180 Output: Urine 300 650 Other: Voiding Method Toilet # Voids 3 300 # Bowel Movements 1 - Exam PHYSICAL EXAMINATION: HEENT: Head is atraumatic, normocephalic. Pupils equal, round. Neck is supple. There is elevated jugular venous pressure. HEART EXAMINATION: S1 and S2 irregularly irregular CHEST EXAMINATION: And's reveal scattered coarse rhonchi with rales to bilateral bases and diminished air entry to the bases. ABDOMEN: Soft,, firm, distended. Bowel sounds are heard. No organomegaly noted. EXTREMITIES: 2+ peripheral pulses with 2+ evidence of peripheral edema and no calf tenderness noted. NEUROLOGIC patient is awake, alert and oriented -3. - Labs CBC & Chem 7: 07/24/17 02:53 07/24/17 02:53 Labs: Abnormal Lab Results - Last 24 Hours (Table) 07/23/17 07/23/17 07/23/17 Range/Units 14:14 15:07 16:08 WBC (3.8-10.6) k/uL MCHC (31.0-37.0) g/dL Neutrophils # (1.3-7.7) k/uL Lymphocytes # (1.0-4.8) k/uL PT (9.0-12.0) sec INR (<1.2) APTT (22.0-30.0) sec Sodium (137-145) mmol/L Chloride (98-107) mmol/L Carbon Dioxide (22-30) mmol/L BUN (7-17) mg/dL Creatinine (0.52-1.04) mg/dL Glucose (74-99) mg/dL POC Glucose (mg/dL) 267 H 301 H 243 H (75-99) mg/dL Albumin (3.5-5.0) g/dL 07/23/17 07/23/17 07/23/17 Range/Units 18:06 19:13 19:50 WBC (3.8-10.6) k/uL MCHC (31.0-37.0) g/dL Neutrophils # (1.3-7.7) k/uL Lymphocytes # (1.0-4.8) k/uL PT (9.0-12.0) sec INR (<1.2) APTT 34.0 H (22.0-30.0) sec Sodium (137-145) mmol/L Chloride (98-107) mmol/L Carbon Dioxide (22-30) mmol/L BUN (7-17) mg/dL Creatinine (0.52-1.04) mg/dL Glucose (74-99) mg/dL POC Glucose (mg/dL) 195 H 178 H (75-99) mg/dL Albumin (3.5-5.0) g/dL 07/23/17 07/23/17 07/24/17 Range/Units 21:57 23:55 01:53 WBC (3.8-10.6) k/uL MCHC (31.0-37.0) g/dL Neutrophils # (1.3-7.7) k/uL Lymphocytes # (1.0-4.8) k/uL PT (9.0-12.0) sec INR (<1.2) APTT (22.0-30.0) sec Sodium (137-145) mmol/L Chloride (98-107) mmol/L Carbon Dioxide (22-30) mmol/L BUN (7-17) mg/dL Creatinine (0.52-1.04) mg/dL Glucose (74-99) mg/dL POC Glucose (mg/dL) 215 H 214 H 200 H (75-99) mg/dL Albumin (3.5-5.0) g/dL 07/24/17 07/24/17 07/24/17 Range/Units 02:53 02:53 02:53 WBC 12.6 H (3.8-10.6) k/uL MCHC 30.4 L (31.0-37.0) g/dL Neutrophils # 11.7 H (1.3-7.7) k/uL Lymphocytes # 0.4 L (1.0-4.8) k/uL PT (9.0-12.0) sec INR (<1.2) APTT >200.0 H* (22.0-30.0) sec Sodium 132 L (137-145) mmol/L Chloride 92 L (98-107) mmol/L Carbon Dioxide 32 H (22-30) mmol/L BUN 46 H (7-17) mg/dL Creatinine 1.20 H (0.52-1.04) mg/dL Glucose 203 H (74-99) mg/dL POC Glucose (mg/dL) (75-99) mg/dL Albumin 3.3 L (3.5-5.0) g/dL 07/24/17 07/24/17 07/24/17 Range/Units 02:53 03:59 05:55 WBC (3.8-10.6) k/uL MCHC (31.0-37.0) g/dL Neutrophils # (1.3-7.7) k/uL Lymphocytes # (1.0-4.8) k/uL PT 12.2 H (9.0-12.0) sec INR 1.2 H (<1.2) APTT (22.0-30.0) sec Sodium (137-145) mmol/L Chloride (98-107) mmol/L Carbon Dioxide (22-30) mmol/L BUN (7-17) mg/dL Creatinine (0.52-1.04) mg/dL Glucose (74-99) mg/dL POC Glucose (mg/dL) 239 H 209 H (75-99) mg/dL Albumin (3.5-5.0) g/dL 07/24/17 07/24/17 07/24/17 Range/Units 08:32 10:22 12:02 WBC (3.8-10.6) k/uL MCHC (31.0-37.0) g/dL Neutrophils # (1.3-7.7) k/uL Lymphocytes # (1.0-4.8) k/uL PT (9.0-12.0) sec INR (<1.2) APTT (22.0-30.0) sec Sodium (137-145) mmol/L Chloride (98-107) mmol/L Carbon Dioxide (22-30) mmol/L BUN (7-17) mg/dL Creatinine (0.52-1.04) mg/dL Glucose (74-99) mg/dL POC Glucose (mg/dL) 238 H 190 H 172 H (75-99) mg/dL Albumin (3.5-5.0) g/dL Microbiology - Last 24 Hours (Table) 07/22/17 12:14 Blood Culture - Preliminary Blood No Growth after 24 hours Assessment and Plan Plan: Assessment and plan #1 diastolic congestive heart failure acute on chronic #2 atrial fibrillation with rapid ventricular response, appears to be of new onset. #3 exacerbation of COPD #4 history of lung cancer status post left lower lobectomy and chemotherapy with radiation #5 diabetes #6 hypertension #7 hyperlipidemia #8 sleep apnea Plan From cardiology's perspective, we'll continue IV Lasix drip, continue to monitor intake and output along with daily weights. Patient will also be initiated on Eliquis 5 mg one tablet by mouth twice a day. DNP note has been reviewed, I agree with a documented findings and plan of care. Patient was seen and examined.
[2017-07-24 14:09] LABS: Hemoglobin A1C 7.1 % (4.2-6.1)
[2017-07-24 14:44] LABS: Glucose,Whole Blood 213 mg/dL (75-99)
--- NOTE | 2017-07-24 15:54 | P.CNNES ---
History of Present Illness Consult date: 07/24/17 History of Present Illness: The patient is a 71-year-old right-handed white female past history of lung cancer and previous left lower lobectomy and chemotherapy who was admitted to the hospital on 07/22/2017 with acute hypoxic respiratory failure, acute COPD exacerbation, acute tracheobronchitis and new onset A. fib for headache with CHF . 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 A stat CT of the brain showed no acute abnormality. Telemetry neuro financial consultant was consulted and she had a CT angiogram that showed no significant findings. The patient does not recall the episode. She did all the recalls being confused when all the people were around her bed this morning. Apparently there was no focal neurologic deficit and the patient was oriented to place and person. Neurology was called to consult regarding episode of altered mental status. Review of Systems Constitutional: Denies chills, Denies fever Eyes: denies blurred vision, denies pain Ears, nose, mouth and throat: Denies headache, Denies sore throat Cardiovascular: Denies chest pain, Denies shortness of breath Respiratory: Denies cough Gastrointestinal: Denies abdominal pain, Denies diarrhea, Denies nausea, Denies vomiting Genitourinary: Denies dysuria, Denies hematuria Musculoskeletal: Denies myalgias Integumentary: Denies pruritus, Denies rash Neurological: Denies numbness, Denies weakness Past Medical History Past Medical History: COPD, Diabetes Mellitus, Hyperlipidemia, Hypertension, Memory Impairment Additional Past Medical History / Comment(s): lung cancer, tubal ligation, spinal meningitis 1970, wears 2L o2 at night History of Any Multi-Drug Resistant Organisms: None Reported Past Surgical History: Heart Catheterization With Stent, Tubal Ligation Additional Past Surgical History / Comment(s): left lower lobe lung removed, right shoulder rotator cuff Past Anesthesia/Blood Transfusion Reactions: No Reported Reaction Additional Past Anesthesia/Blood Transfusion Reaction / Comment(s): clausterphobia Date of Last Stent Placement:: unk Past Psychological History: No Psychological Hx Reported Smoking Status: Former smoker Past Alcohol Use History: None Reported Past Drug Use History: None Reported - Past Family History Mother History Unknown: Yes Family Medical History: No Reported History Father Family Medical History: Diabetes Mellitus Medications and Allergies Home Medications Medication Instructions Recorded Confirmed Type Atorvastatin [Lipitor] 40 mg PO HS 02/07/17 10/12/17 History Cholecalciferol [Vitamin D3] 4,000 unit PO DAILY 11/17/16 07/22/17 History Cyanocobalamin [Vitamin B-12] 500 mcg PO DAILY 11/17/16 07/22/17 History Fluticasone/Salmeterol [Advair 1 puff INHALATION RT-BID 11/17/16 07/22/17 History 250-50 Diskus] Gabapentin 800 mg PO TID 11/17/16 07/22/17 History Glimepiride [Amaryl] 4 mg PO AC-BID 11/17/16 07/22/17 History Insulin Aspart [NovoLOG Flexpen] 20 units SQ AC-TID 11/17/16 07/22/17 History Insulin Degludec [Tresiba 98 unit SQ DAILY 11/17/16 07/22/17 History Flextouch U-200] Losartan/Hydrochlorothiazide 1 tab PO DAILY 11/17/16 07/22/17 History [Losartan-Hctz 100-12.5 mg Tab] Meloxicam [Mobic] 7.5 - 15 mg PO HS 11/17/16 07/22/17 History Metoprolol Succinate [Toprol XL] 25 mg PO DAILY 11/17/16 07/22/17 History Nizatidine [Axid] 150 mg PO HS 11/17/16 07/22/17 History Omeprazole 20 mg PO BID 11/17/16 07/22/17 History Albuterol Inhaler [Ventolin Hfa 1 puff INHALATION RT-Q4H PRN 07/22/17 07/22/17 History Inhaler] Albuterol Nebulized [Ventolin 2.5 mg INHALATION RT-QID 07/22/17 07/22/17 History Nebulized] Furosemide [Lasix] 20 mg PO DAILY 07/22/17 07/22/17 History Loratadine [Claritin] 10 mg PO DAILY 07/22/17 07/22/17 History metFORMIN HCL [Glucophage] 500 mg PO BID 07/22/17 07/22/17 History Allergies Allergy/AdvReac Type Severity Reaction Status Date / Time codeine Allergy Unknown Verified 07/22/17 12:05 Physical Examination - Vital Signs Vital Signs: Vital Signs Temp Pulse Pulse Resp BP BP Pulse Ox 07/24/17 14:00 67 18 109/62 94 L 07/24/17 13:00 104 H 20 132/93 95 07/24/17 11:15 82 18 145/70 93 L 07/24/17 08:47 72 07/24/17 08:41 97.0 F L 79 18 133/63 98 07/24/17 08:37 68 07/24/17 06:15 100 18 106/57 90 L 07/24/17 06:00 94 18 145/60 94 L 07/24/17 05:45 104 H 18 138/65 93 L 07/24/17 05:30 97 18 131/60 93 L 07/24/17 05:19 104 H 18 138/80 92 L 07/24/17 05:04 119 H 18 144/67 95 07/24/17 04:49 96 18 156/70 95 07/24/17 03:58 18 07/24/17 00:00 97.8 F 109 H 18 132/80 93 L 07/23/17 20:39 74 07/23/17 20:26 74 07/23/17 20:00 97.7 F 89 18 136/61 96 07/23/17 16:23 70 07/23/17 16:10 72 07/23/17 16:00 79 18 134/63 96 Intake and Output 07/24/17 07/24/17 07/24/17 06:59 14:59 22:59 Intake Total 236.588 448.696 Balance 236.588 448.696 Intake: Intake, IV Titration 236.588 88.696 Amount Heparin Sodium,Porcine/ 197.232 D5w Pmx 25,000 unit In Dextrose/Water 1 500ml. bag @ 10.02 UNITS/KG/HR 19.99 mls/hr IV .Q24H [facility] Rx#:[id number] Insulin Regular 100 unit 39.356 38.696 In Sodium Chloride 0.9% 100 ml @ Titrate IV .Q0M [facility] Rx#:[id number] cefTRIAXone 1,000 mg In 50 Sodium Chloride 0.9% 50 ml @ 100 mls/hr IVPB Q24HR [facility] Rx#:[id number] Oral 360 Other: Voiding Method Toilet Bedside Commode # Voids 300 Weight 103.4 kg - Constitutional General appearance: obese - EENT EENT: PERRL, hearing intact, vision intact - Respiratory Respiratory: lungs clear - Cardiovascular Cardiovascular: normal S1 - Neurologic Status she was awake alert oriented to person place and time she was able to spell world forward has some difficulty spelling it backward she was able to do additions had some difficulty with subtraction's there is no a aphasia or dysarthria Cranial nerve examination: PERRL, EOMI, VFF, face symmetric, tongue midline, intact Speech examination: intact Sensorimotor examination: intact Detailed motor examination: grossly full strength in all extremities - Psychiatric Psychiatric: mood/affect appropriate Results - Laboratory Findings CBC and BMP: 07/24/17 02:53 07/24/17 02:53 Abnormal Lab Findings: Abnormal Labs 07/22/17 07/22/17 07/22/17 12:14 12:14 12:14 WBC MCHC 30.7 L RDW 15.7 H Neutrophils # 8.4 H Lymphocytes # 0.8 L PT INR APTT Sodium Chloride Carbon Dioxide BUN 21 H Creatinine Glucose 61 L POC Glucose (mg/dL) Hemoglobin A1c 6.9 H Total Protein Albumin 07/22/17 07/22/17 07/22/17 14:59 15:14 15:38 WBC MCHC RDW Neutrophils # Lymphocytes # PT INR APTT Sodium Chloride Carbon Dioxide BUN Creatinine Glucose POC Glucose (mg/dL) 55 L 59 L 74 L Hemoglobin A1c Total Protein Albumin 07/22/17 07/22/17 07/23/17 16:54 20:40 02:56 WBC MCHC 29.5 L RDW Neutrophils # Lymphocytes # 0.4 L PT INR APTT Sodium Chloride Carbon Dioxide BUN Creatinine Glucose POC Glucose (mg/dL) 155 H 241 H Hemoglobin A1c Total Protein Albumin 07/23/17 07/23/17 07/23/17 02:56 02:56 05:24 WBC MCHC RDW Neutrophils # Lymphocytes # PT INR APTT Sodium 136 L Chloride 97 L Carbon Dioxide BUN 28 H Creatinine Glucose 267 H POC Glucose (mg/dL) 249 H Hemoglobin A1c 7.1 H Total Protein 6.2 L Albumin 3.2 L 07/23/17 07/23/17 07/23/17 11:39 12:07 12:59 WBC MCHC RDW Neutrophils # Lymphocytes # PT INR APTT 33.5 H Sodium Chloride Carbon Dioxide BUN Creatinine Glucose POC Glucose (mg/dL) 404 H 317 H Hemoglobin A1c Total Protein Albumin 07/23/17 07/23/17 07/23/17 14:14 15:07 16:08 WBC MCHC RDW Neutrophils # Lymphocytes # PT INR APTT Sodium Chloride Carbon Dioxide BUN Creatinine Glucose POC Glucose (mg/dL) 267 H 301 H 243 H Hemoglobin A1c Total Protein Albumin 07/23/17 07/23/17 07/23/17 18:06 19:13 19:50 WBC MCHC RDW Neutrophils # Lymphocytes # PT INR APTT 34.0 H Sodium Chloride Carbon Dioxide BUN Creatinine Glucose POC Glucose (mg/dL) 195 H 178 H Hemoglobin A1c Total Protein Albumin 07/23/17 07/23/17 07/24/17 21:57 23:55 01:53 WBC MCHC RDW Neutrophils # Lymphocytes # PT INR APTT Sodium Chloride Carbon Dioxide BUN Creatinine Glucose POC Glucose (mg/dL) 215 H 214 H 200 H Hemoglobin A1c Total Protein Albumin 07/24/17 07/24/17 07/24/17 02:53 02:53 02:53 WBC 12.6 H MCHC 30.4 L RDW Neutrophils # 11.7 H Lymphocytes # 0.4 L PT INR APTT >200.0 H* Sodium 132 L Chloride 92 L Carbon Dioxide 32 H BUN 46 H Creatinine 1.20 H Glucose 203 H POC Glucose (mg/dL) Hemoglobin A1c Total Protein Albumin 3.3 L 07/24/17 07/24/17 07/24/17 02:53 03:59 05:55 WBC MCHC RDW Neutrophils # Lymphocytes # PT 12.2 H INR 1.2 H APTT Sodium Chloride Carbon Dioxide BUN Creatinine Glucose POC Glucose (mg/dL) 239 H 209 H Hemoglobin A1c Total Protein Albumin 07/24/17 07/24/17 07/24/17 08:32 10:22 12:02 WBC MCHC RDW Neutrophils # Lymphocytes # PT INR APTT Sodium Chloride Carbon Dioxide BUN Creatinine Glucose POC Glucose (mg/dL) 238 H 190 H 172 H Hemoglobin A1c Total Protein Albumin 07/24/17 14:24 WBC MCHC RDW Neutrophils # Lymphocytes # PT INR APTT Sodium Chloride Carbon Dioxide BUN Creatinine Glucose POC Glucose (mg/dL) 213 H Hemoglobin A1c Total Protein Albumin Assessment and Plan (1) Episode of unresponsiveness Status: Acute Code(s): R41.89 - OTH SYMPTOMS AND SIGNS W COGNITIVE FUNCTIONS AND AWARENESS (2) Altered mental status Status: Acute Code(s): R41.82 - ALTERED MENTAL STATUS, UNSPECIFIED (3) Atrial fibrillation with RVR Status: Chronic Code(s): I48.91 - UNSPECIFIED ATRIAL FIBRILLATION Plan: The patient is a 71-year-old woman who had an episode of altered mental status. She underwent a stroke evaluation including a CTA which was unremarkable T brain was also unremarkable her logic examination is nonfocal her history of cancer we'll do MRI of the brain with contrast. Also we'll check EEG
[2017-07-24 16:44] LABS: Glucose,Whole Blood 138 mg/dL (75-99)
[2017-07-24] MEDS: FUROSEMIDE 250 MG in SODIUM CHLORIDE 0.9% 225 ML IVP SCH ×2 (17:34→20:35)
[2017-07-24 18:15] LABS: Glucose,Whole Blood 158 mg/dL (75-99)
[2017-07-24 20:17] LABS: Glucose,Whole Blood 204 mg/dL (75-99)
[2017-07-24] MEDS: ATORVASTATIN 40 MG TAB PO SCH (20:34)
[2017-07-24] MEDS: APIXABAN 5 MG TAB PO SCH (20:35)
[2017-07-24] MEDS: FAMOTIDINE 20 MG TAB PO SCH (20:35)
[2017-07-24] MEDS: MELOXICAM 7.5 MG TAB PO SCH (20:35)
[2017-07-24 22:24] LABS: Glucose,Whole Blood 265 mg/dL (75-99)
[2017-07-25] LABS: Glucose,Whole Blood 252 mg/dL (75-99)
[2017-07-25 02:21] LABS: Glucose,Whole Blood 265 mg/dL (75-99)
[2017-07-25 04:12] LABS: Glucose,Whole Blood 239 mg/dL (75-99)
[2017-07-25 06:01] LABS: Basophils % (A) 0 %; CH 27.2; CHCM 30.8; Eosinophils % (A) 0 %; HCT 41.3 % (34.0-46.0); HDW 3.19; HGB 12.5 gm/dL (11.4-16.0); Hypochromasia Moderate; Luc # (Auto) 0.05; Luc % (Auto) 1; Lymphocytes # (A) 0.3 k/uL (1.0-4.8); Lymphocytes % (A) 3 %; MCH 26.7 pg (25.0-35.0); MCHC 30.2 g/dL (31.0-37.0); MCV 88.4 fL (80.0-100.0); Mean Platelet Volume 7.2; Monocytes # (A) 0.3 k/uL (0-1.0); Monocytes % (A) 3 %; Neutrophils # (A) 9.1 k/uL (1.3-7.7); Neutrophils % (A) 93 %; RBC 4.67 m/uL (3.80-5.40); RDW 15.3 % (11.5-15.5); WBC 9.8 k/uL (3.8-10.6); WBC (Perox) 8.96
[2017-07-25 06:03] LABS: Glucose,Whole Blood 163 mg/dL (75-99)
[2017-07-25 06:15] LABS: Calcium 8.6 mg/dL (8.4-10.2); Potassium 4.3 mmol/L (3.5-5.1); Total Bilirubin 0.2 mg/dL (0.2-1.3)
--- NOTE | 2017-07-25 06:45 | XR ---
EXAMINATION TYPE: XR chest 2V DATE OF EXAM: 07/25/2017 HISTORY: chf. REFERENCE: Previous study dated 07/23/2017. FINDINGS: The lungs are overinflated. The heart is enlarged. There is left basilar airspace disease. There are small, bilateral effusions. There is vascular congestion and subtle interstitial change.. IMPRESSION: 1. COPD. 2. CARDIOMEGALY AND CHANGES OF CONGESTIVE HEART FAILURE. 3. SMALL, BILATERAL EFFUSIONS. 4. LEFT BASILAR AIRSPACE DISEASE.
[2017-07-25] MEDS: methylPREDNISolone SOD SUCCI 125 MG/2 ML VIAL IV SCH (06:48)
[2017-07-25] MEDS: PANTOPRAZOLE 40 MG TABLET PO SCH ×2 (06:48→17:08)
[2017-07-25] MEDS: INSULIN LISPRO (humaLOG) 300 UNIT/3 ML VIAL SQ SCH ×3 (06:52→17:08)
[2017-07-25] MEDS: LORATADINE 10 MG TAB PO SCH (08:10)
[2017-07-25] MEDS: HYDROCHLOROTHIAZIDE 12.5 MG CAP PO SCH (08:10)
[2017-07-25] MEDS: APIXABAN 5 MG TAB PO SCH ×2 (08:10→21:07)
[2017-07-25] MEDS: GABAPENTIN 400 MG CAP PO SCH ×3 (08:10→21:07)
[2017-07-25] MEDS: SPIRONOLACTONE 25 MG TAB PO SCH (08:10)
[2017-07-25] MEDS: LOSARTAN 50 MG TAB PO SCH (08:10)
[2017-07-25] MEDS: ASPIRIN 81 MG PO SCH (08:11)
[2017-07-25] MEDS: AZITHROMYCIN 500 MG TAB PO SCH (08:12)
[2017-07-25] MEDS: METOPROLOL SUCCINATE (ER) 25 MG TAB.ER.24H PO SCH (08:12)
[2017-07-25] MEDS: NITROGLYCERIN OINT 1 INCH/GM PACKET TOPICAL SCH ×2 (08:12→11:59)
[2017-07-25] MEDS: IPRATROPIUM-ALBUTEROL 3 ML NEB INHALATION SCH ×4 (08:45→20:13)
[2017-07-25] MEDS: SYMBICORT 80-4.5 MCG INHALER INHALATION SCH ×2 (08:45→20:12)
[2017-07-25 10:56] LABS: Glucose,Whole Blood 156 mg/dL (75-99)
--- NOTE | 2017-07-25 11:30 | P.PN ---
Subjective Patient is doing well today. She is awake and alert. No events overnight. Objective - Vital Signs Vital signs: Vital Signs Temp 96.9 F L 07/25/17 08:00 Pulse 90 07/25/17 08:55 Resp 16 07/25/17 08:00 BP 171/71 07/25/17 08:00 Pulse Ox 92 L 07/25/17 08:00 Intake & Output 07/24/17 07/25/17 07/25/17 18:59 06:59 18:59 Intake Total 872.018 160.612 13.787 Balance 872.018 160.612 13.787 Weight 107 kg 105.2 kg Intake: IV 50 Furosemide 250 mg In 50 Sodium Chloride 0.9% 225 ml @ 10 MG/HR 10 mls/hr IVP .Q24H [facility] Rx#: [id number] Intake, IV Titration 332.018 110.612 13.787 Amount Furosemide 250 mg In 231 30.167 Sodium Chloride 0.9% 225 ml @ 10 MG/HR 10 mls/hr IVP .Q24H [facility] Rx#: [id number] Insulin Regular 100 unit 51.018 80.445 13.787 In Sodium Chloride 0.9% 100 ml @ Titrate IV .Q0M [facility] Rx#:[id number] cefTRIAXone 1,000 mg In 50 Sodium Chloride 0.9% 50 ml @ 100 mls/hr IVPB Q24HR [facility] Rx#:[id number] Oral 540 Other: Voiding Method Bedside Commode Bedside Commode Bedside Commode # Voids 2,800 - Exam General: The patient is awake and alert, in no distress Eye: there is normal conjunctiva bilaterally. Neck: The neck is supple, there is no JVD. Cardiovascular: Normal S1-S2, no S3-S4, no murmurs. Respiratory: Lungs clear to auscultation bilaterally Gastrointestinal: Abdomen is soft, nontender Musculoskeletal: There is +1-2 pedal edema. Neurological:. Speech is normal. Skin: Skin is warm and dry - Labs CBC & Chem 7: 07/25/17 05:22 07/25/17 05:22 Labs: Abnormal Lab Results - Last 24 Hours (Table) 07/23/17 07/24/17 07/24/17 Range/Units 02:56 12:02 14:24 MCHC (31.0-37.0) g/dL Neutrophils # (1.3-7.7) k/uL Lymphocytes # (1.0-4.8) k/uL Chloride (98-107) mmol/L Carbon Dioxide (22-30) mmol/L BUN (7-17) mg/dL Creatinine (0.52-1.04) mg/dL Glucose (74-99) mg/dL POC Glucose (mg/dL) 172 H 213 H (75-99) mg/dL Hemoglobin A1c 7.1 H (4.2-6.1) % Total Protein (6.3-8.2) g/dL Albumin (3.5-5.0) g/dL 07/24/17 07/24/17 07/24/17 Range/Units 16:27 18:11 19:57 MCHC (31.0-37.0) g/dL Neutrophils # (1.3-7.7) k/uL Lymphocytes # (1.0-4.8) k/uL Chloride (98-107) mmol/L Carbon Dioxide (22-30) mmol/L BUN (7-17) mg/dL Creatinine (0.52-1.04) mg/dL Glucose (74-99) mg/dL POC Glucose (mg/dL) 138 H 158 H 204 H (75-99) mg/dL Hemoglobin A1c (4.2-6.1) % Total Protein (6.3-8.2) g/dL Albumin (3.5-5.0) g/dL 07/24/17 07/24/17 07/25/17 Range/Units 22:08 23:57 02:19 MCHC (31.0-37.0) g/dL Neutrophils # (1.3-7.7) k/uL Lymphocytes # (1.0-4.8) k/uL Chloride (98-107) mmol/L Carbon Dioxide (22-30) mmol/L BUN (7-17) mg/dL Creatinine (0.52-1.04) mg/dL Glucose (74-99) mg/dL POC Glucose (mg/dL) 265 H 252 H 265 H (75-99) mg/dL Hemoglobin A1c (4.2-6.1) % Total Protein (6.3-8.2) g/dL Albumin (3.5-5.0) g/dL 07/25/17 07/25/17 07/25/17 Range/Units 03:53 05:22 05:22 MCHC 30.2 L (31.0-37.0) g/dL Neutrophils # 9.1 H (1.3-7.7) k/uL Lymphocytes # 0.3 L (1.0-4.8) k/uL Chloride 91 L (98-107) mmol/L Carbon Dioxide 38 H (22-30) mmol/L BUN 62 H (7-17) mg/dL Creatinine 1.30 H (0.52-1.04) mg/dL Glucose 184 H (74-99) mg/dL POC Glucose (mg/dL) 239 H (75-99) mg/dL Hemoglobin A1c (4.2-6.1) % Total Protein 6.0 L (6.3-8.2) g/dL Albumin 3.1 L (3.5-5.0) g/dL 07/25/17 07/25/17 Range/Units 06:01 10:41 MCHC (31.0-37.0) g/dL Neutrophils # (1.3-7.7) k/uL Lymphocytes # (1.0-4.8) k/uL Chloride (98-107) mmol/L Carbon Dioxide (22-30) mmol/L BUN (7-17) mg/dL Creatinine (0.52-1.04) mg/dL Glucose (74-99) mg/dL POC Glucose (mg/dL) 163 H 156 H (75-99) mg/dL Hemoglobin A1c (4.2-6.1) % Total Protein (6.3-8.2) g/dL Albumin (3.5-5.0) g/dL Microbiology - Last 24 Hours (Table) 07/22/17 12:14 Blood Culture - Preliminary Blood No Growth after 48 hours Assessment and Plan Plan: 1. Acute and chronic hypoxic respiratory failure: multifactorial likely related to COPD exacerbation, atrial fibrillation with rapid ventricular response, CHF exacerbation and bronchitis 2. Acute COPD exacerbation patient is been placed on IV Solu-Medrol with bronchodilators. We'll monitor. Pulmonary service is following 3. Acute tracheobronchitis: Patient has been started on Rocephin and azithromycin. 4. Atrial fibrillation with rapid ventricular response and new onset: Patient is been placed on IV Cardizem drip and IV heparin. Cardiology has been consulted. Heart rate is better controlled 5. Acute CHF exacerbation: Continue IV Lasix. Echo shows an EF of 55-60%. There is moderate to severe pulmonary hypertension. And a small pericardial effusion. 6. History of lung cancer status post left lower lobectomy and chemotherapy 7. Diabetes mellitus type 2 with hypoglycemia: We'll place patient on sliding scale coverage and monitor closely. hold oral hypoglycemics. Resume Tresiba. Hyperglycemia secondary to steroids. Continue sliding scale coverage 8. History of coronary artery disease with previous angioplasty and stent placement 9. Episode of mental status change now resolved. Stroke code was called and telemetry neuro production drilling machine operator was consult. Computed tomography scan of the brain showed no acute intracranial findings. CT angiogram showed no hemodynamically significant stenosis. Neurology consulted. Recommended MRI of the brain GI prophylaxis Protonix and DVT prophylaxis IV heparin Plan for today: - Decrease Lasix drip to 5 mg per hour - Chest Solu-Medrol to 40 mg twice a day - We'll obtain MRI of the brain as recommended by neurology - Repeat lab work in the morning and monitor kidney function - Change spironolactone to 25 mg daily
[2017-07-25] MEDS: CYANOCOBALAMIN 500 MCG TAB PO SCH (11:57)
[2017-07-25] MEDS: CHOLECALCIFEROL 1,000 UNIT TAB PO SCH (11:57)
[2017-07-25 12:00] LABS: Glucose,Whole Blood 137 mg/dL (75-99)
[2017-07-25] MEDS ORDERED: METOPROLOL SUCCINATE (ER) 25 MG TAB.ER.24H PO ONE (12:45)
--- NOTE | 2017-07-25 14:09 | P.PN ---
Subjective Progress Note Date: 07/25/17 Principal diagnosis: Shortness of breath This is a pleasant 71-year-old female with history of COPD, lung CA with prior left lower lobectomy, status post chemotherapy and radiation, sleep apnea, hypertension, diabetes, GERD, who presented to the hospital with symptoms of progressively worsening shortness of breath. Positive PND and orthopnea. Patient also has significant amount of peripheral edema which she states that she has had for several months. Prior history of smoking. On presentation here EKG showed atrial fibrillation with a rapid ventricular response, was initiated on IV Cardizem drip. According to the patient, she has never been told in the past to have atrial fibrillation or congestive cardiac failure. She does not see a research and development engineer in the office. Chest x-ray on admission revealed cardiomegaly and possible pulmonary venous hypertension as well as interstitial edema. Possible left lower lobe atelectasis versus pneumonia. Echocardiogram with Doppler study was performed which revealed a small pericardial effusion moderate concentric LVH, ejection fraction 55-60%. Moderate to severe pulmonary hypertension. Repeat chest x-ray this morning shows persistence in interstitial edema, possible pneumonia, small effusion. Blood pressure on arrival 172/80, heart rate 120, 91% on 4 L of oxygen with a temperature of 99.1. Today she is afebrile, blood pressure 126/50, heart rate 90, 92% on 5 L of oxygen. White blood cell count 5.7, hemoglobin 12.3, platelet count 193. Sodium 136, potassium 4.8, BUN 28, creatinine 0.7. Troponin 0.019, 0.030, 0.017. BNP level 2680. was initiated on IV Lasix in the emergency room, she is on 40 mg IV every 8 hour. Patient is diuresing from the IV Lasix, small amounts. Patient does state this morning that her breathing is somewhat improved, however continues to feel significantly short of breath, continues to have significant bilateral peripheral edema and abdominal swelling. 07/24/2017 Patient was initiated on IV Lasix drip diuresed well through the night last night, weight is down 2 kg today. We also initiated the patient on Eliquis 5 mg one tablet by mouth twice a day for anticoagulation, she is covered for this medication. 07/25/2017 10 seen and examined this morning, continues to diurese well, patient states she feels better better every day, continues to have significant edema. Weight is down 2 kg today, creatinine 1.3, blood pressure 40/90, heart rate in the 90s. We will continue current medications and increase her metoprolol tartrate 50 daily. Objective - Vital Signs Vital signs: Vital Signs Temp 96.7 F L 07/25/17 12:00 Pulse 103 H 07/25/17 12:00 Resp 16 07/25/17 12:00 BP 141/92 07/25/17 12:00 Pulse Ox 95 07/25/17 13:00 Intake & Output 07/24/17 07/25/17 07/25/17 18:59 06:59 18:59 Intake Total 872.018 160.612 596.969 Balance 872.018 160.612 596.969 Weight 107 kg 105.2 kg Intake: IV 50 50 Furosemide 250 mg In 50 50 Sodium Chloride 0.9% 225 ml @ 5 MG/HR 5 mls/hr IVP .Q24H [facility] Rx#:[id number] Intake, IV Titration 332.018 110.612 66.969 Amount Furosemide 250 mg In 231 30.167 Sodium Chloride 0.9% 225 ml @ 5 MG/HR 5 mls/hr IVP .Q24H [facility] Rx#:[id number] Insulin Regular 100 unit 51.018 80.445 16.969 In Sodium Chloride 0.9% 100 ml @ Titrate IV .Q0M [facility] Rx#:[id number] cefTRIAXone 1,000 mg In 50 50 Sodium Chloride 0.9% 50 ml @ 100 mls/hr IVPB Q24HR [facility] Rx#:[id number] Oral 540 480 Other: Voiding Method Bedside Commode Bedside Commode Bedside Commode # Voids 2,800 - Exam PHYSICAL EXAMINATION: HEENT: Head is atraumatic, normocephalic. Pupils equal, round. Neck is supple. There is elevated jugular venous pressure. HEART EXAMINATION: S1 and S2 irregularly irregular CHEST EXAMINATION: And's reveal scattered coarse rhonchi with rales to bilateral bases and diminished air entry to the bases. ABDOMEN: Soft,, firm, distended. Bowel sounds are heard. No organomegaly noted. EXTREMITIES: 2+ peripheral pulses with 2+ evidence of peripheral edema and no calf tenderness noted. NEUROLOGIC patient is awake, alert and oriented -3. - Labs CBC & Chem 7: 07/25/17 05:22 07/25/17 05:22 Labs: Abnormal Lab Results - Last 24 Hours (Table) 07/23/17 07/24/17 07/24/17 Range/Units 02:56 14:24 16:27 MCHC (31.0-37.0) g/dL Neutrophils # (1.3-7.7) k/uL Lymphocytes # (1.0-4.8) k/uL Chloride (98-107) mmol/L Carbon Dioxide (22-30) mmol/L BUN (7-17) mg/dL Creatinine (0.52-1.04) mg/dL Glucose (74-99) mg/dL POC Glucose (mg/dL) 213 H 138 H (75-99) mg/dL Hemoglobin A1c 7.1 H (4.2-6.1) % Total Protein (6.3-8.2) g/dL Albumin (3.5-5.0) g/dL 07/24/17 07/24/17 07/24/17 Range/Units 18:11 19:57 22:08 MCHC (31.0-37.0) g/dL Neutrophils # (1.3-7.7) k/uL Lymphocytes # (1.0-4.8) k/uL Chloride (98-107) mmol/L Carbon Dioxide (22-30) mmol/L BUN (7-17) mg/dL Creatinine (0.52-1.04) mg/dL Glucose (74-99) mg/dL POC Glucose (mg/dL) 158 H 204 H 265 H (75-99) mg/dL Hemoglobin A1c (4.2-6.1) % Total Protein (6.3-8.2) g/dL Albumin (3.5-5.0) g/dL 07/24/17 07/25/17 07/25/17 Range/Units 23:57 02:19 03:53 MCHC (31.0-37.0) g/dL Neutrophils # (1.3-7.7) k/uL Lymphocytes # (1.0-4.8) k/uL Chloride (98-107) mmol/L Carbon Dioxide (22-30) mmol/L BUN (7-17) mg/dL Creatinine (0.52-1.04) mg/dL Glucose (74-99) mg/dL POC Glucose (mg/dL) 252 H 265 H 239 H (75-99) mg/dL Hemoglobin A1c (4.2-6.1) % Total Protein (6.3-8.2) g/dL Albumin (3.5-5.0) g/dL 07/25/17 07/25/17 07/25/17 Range/Units 05:22 05:22 06:01 MCHC 30.2 L (31.0-37.0) g/dL Neutrophils # 9.1 H (1.3-7.7) k/uL Lymphocytes # 0.3 L (1.0-4.8) k/uL Chloride 91 L (98-107) mmol/L Carbon Dioxide 38 H (22-30) mmol/L BUN 62 H (7-17) mg/dL Creatinine 1.30 H (0.52-1.04) mg/dL Glucose 184 H (74-99) mg/dL POC Glucose (mg/dL) 163 H (75-99) mg/dL Hemoglobin A1c (4.2-6.1) % Total Protein 6.0 L (6.3-8.2) g/dL Albumin 3.1 L (3.5-5.0) g/dL 07/25/17 07/25/17 Range/Units 10:41 11:46 MCHC (31.0-37.0) g/dL Neutrophils # (1.3-7.7) k/uL Lymphocytes # (1.0-4.8) k/uL Chloride (98-107) mmol/L Carbon Dioxide (22-30) mmol/L BUN (7-17) mg/dL Creatinine (0.52-1.04) mg/dL Glucose (74-99) mg/dL POC Glucose (mg/dL) 156 H 137 H (75-99) mg/dL Hemoglobin A1c (4.2-6.1) % Total Protein (6.3-8.2) g/dL Albumin (3.5-5.0) g/dL Microbiology - Last 24 Hours (Table) 07/22/17 12:14 Blood Culture - Preliminary Blood No Growth after 48 hours Assessment and Plan Plan: Assessment and plan #1 diastolic congestive heart failure acute on chronic #2 atrial fibrillation with rapid ventricular response, appears to be of new onset. #3 exacerbation of COPD #4 history of lung cancer status post left lower lobectomy and chemotherapy with radiation #5 diabetes #6 hypertension #7 hyperlipidemia #8 sleep apnea Plan From cardiology's perspective, we'll continue IV Lasix drip, continue to monitor intake and output along with daily weights. Increase beta kalyan to 50 daily. Chest x-ray shows improvement in heart failure. DNP note has been reviewed, I agree with a documented findings and plan of care. Patient was seen and examined.
--- NOTE | 2017-07-25 14:19 | P.PN ---
Subjective Progress Note Date: 07/25/17 This is a 71-year-old female patient with past medical history of COPD, lung cancer status post left lower lobectomy with chemoradiation, diabetes mellitus, hypertension, GERD who presented to the emergency room from her PCPs office Dr. Joan Stringer with complaints of increased shortness of breath since yesterday and a mild productive cough with small amount of thick yellow sputum. She denied fever or chills, chest congestion, hemoptysis, or wheezing. She also noted increased swelling in bilateral arms and legs, which is new to her. She denied chest pain or orthopnea. Patient is a remote smoker, with a 25-pack- year history, quit many years ago. Her symptoms also included generalized weakness, which is significantly worse today. When she presented to her PCPs office, she was told she had pneumonia. On presentation to the emergency room patient was found to be in A. fib with RVR with a rate of 120 BPM and hypoxic with O2 sat of 86% on 2 L per nasal cannula. She does wear home O2 at bedtime at 2 L. She was initiated on Cardizem drip for rate control and heparin drip per protocol. She sees Dr. Ledezma for management of her chronic COPD, and she is on Advair 250/50 and albuterol nebulized treatments as well as her rescue inhaler at home. Her last admission for COPD exacerbation and tracheobronchitis was in November 2016. Of note she was also found to be hypoglycemic in the emergency room with a blood sugar of 61, which was treated per hypoglycemia protocol. Patient is on a combination of glimepiride, metformin, NovoLog flex pen and Tresiba insulin at home. Her capillary blood sugar was rechecked after crackers and juice and is now at 74 mg/dL. Patient is awake alert, in no acute distress. On examination her lungs sounds scattered end expiratory wheezes throughout the lung castro with absent lung sounds over left lower lobe. No significant sputum production, no rhonchi. Chest x-ray showed cardiomegaly with prominent central vascularity and prominent interstitium. Left lower lobe density could be related to her history of left lower lung lobectomy. Patient has no leukocytosis, no signs of chest congestion or fever. No chills or night sweats. ProBNP 2680, patient is on Lasix 40 mg every 8 hours per attending. Patient has a history of obstructive sleep apnea for which she wears CPAP device at home but she is unsure of her home settings. Family will be asked to bring the home CPAP unit here. On 07/23/2017 patient is seen in follow-up. She is sleeping sitting up on her bedside table. She denied fever or chills, she denied coughing or any sputum production. Lung sounds are diminished with end expiratory wheezes on forced exhale maneuver. She is wearing 5 L oxygen per nasal cannula with O2 saturations around 90%. Chest x-ray from 07/23/2017 has been reviewed. Showed increased pulmonary vascularity, cardiomegaly, and retrocardiac density. She continues on Cardizem drip at 5 mg per hour, she remains in A. fib with a better controlled rate, around 89 BPM today. Continues on heparin drip for anticoagulation. IV Lasix with mild diuresis, she has a -573 mL balance overnight over the last 24 hours. She continues on IV steroids and on antibiotics in the form of Zithromax and Rocephin. She denies any chest pain. He states her breathing is slightly better today. Her bilateral lower leg edema show slight improvement. On 07/24/2017 the patient is being seen for a follow-up. The patient is still being treated for acute CHF, atrial fibrillation an acute COPD exacerbation. Note that around 3:57 AM in the morning the patient had an event where she woke up confused and disoriented. Code stroke was called and the patient was taken for a CAT scan that showed no acute abnormalities in the head and there was no evidence of any acute or recent territorial infarct. CT angios the brain was also done that showed no vascular abnormalities of occlusion. This lasted only for 15 minutes and the patient recovered. During this time the patient did not have any hypotension, cardiac arrhythmia or hypoglycemia. Note that the patient has obstructive sleep apnea and she has not been using his CPAP machine during her current hospital stay. For now, the patient is still in atrial fibrillation.. Have cardiac rhythm is atrial fibrillation. The patient is still on Lasix drip for diuresis. She is producing adequate amount of urine output. Her COPD exacerbation is also being treated with a combination of DuoNeb nebulized treatments around the clock and IV Solu-Medrol. She is also on examination Rocephin and Zithromax. She is post left lower lobe resection for a previous history of non-small cell lung cancer. She is obese. She still has extensive edema in lower eczematous bilaterally. On 07/25/2017 the patient is being seen for a follow-up. The Lasix drip has been drop down to 5 mg an hour. Still producing adequate amount of urine output. Still on a combination of Rocephin and Zithromax. Chest x-ray from today shows volume loss in the left lower lobe related to a previous left lower lobe resection. No acute abnormalities or airspace disease. Still on DuoNeb nebulized treatments around the clock. Still on IV Solu Medrol 40 mg every 12 hours. No loss in consciousness. No altered mental status. The patient is on long-term anticoagulation with Eliquis Objective - Vital Signs Vital signs: Vital Signs Temp 96.7 F L 07/25/17 12:00 Pulse 103 H 07/25/17 12:00 Resp 16 07/25/17 12:00 BP 141/92 07/25/17 12:00 Pulse Ox 95 07/25/17 13:00 Intake & Output 07/24/17 07/25/17 07/25/17 18:59 06:59 18:59 Intake Total 872.018 160.612 596.969 Balance 872.018 160.612 596.969 Weight 107 kg 105.2 kg Intake: IV 50 50 Furosemide 250 mg In 50 50 Sodium Chloride 0.9% 225 ml @ 5 MG/HR 5 mls/hr IVP .Q24H [facility] Rx#:[id number] Intake, IV Titration 332.018 110.612 66.969 Amount Furosemide 250 mg In 231 30.167 Sodium Chloride 0.9% 225 ml @ 5 MG/HR 5 mls/hr IVP .Q24H [facility] Rx#:[id number] Insulin Regular 100 unit 51.018 80.445 16.969 In Sodium Chloride 0.9% 100 ml @ Titrate IV .Q0M [facility] Rx#:[id number] cefTRIAXone 1,000 mg In 50 50 Sodium Chloride 0.9% 50 ml @ 100 mls/hr IVPB Q24HR [facility] Rx#:[id number] Oral 540 480 Other: Voiding Method Bedside Commode Bedside Commode Bedside Commode # Voids 2,800 - Exam Constitutional General appearance: average body habitus, no acute distress - EENT Eyes: PERRLA, dentition normal ENT: NA/AT, normal oropharynx - Neck Neck: normal ROM Carotids: bilateral: upstroke normal Thyroid: bilateral: normal size - Respiratory Respiratory: bilateral: diminished (Left lower lobe), dullness (Left lower lobe) , wheezing, prolonged expiration - Cardiovascular Rhythm: irregularly irregular, secondary to atrial fibrillation and the patient has +1-2 pitting edema in the lower extremities bilaterally. Heart sounds: normal: S1, S2 ankle Peripheral Edema: bilateral: 1+ foot Peripheral Edema: bilateral: 1+ dorsalis pedis Peripheral Pulses: bilateral: Normal radial pulse Peripheral Pulses: bilateral: Normal - Gastrointestinal General gastrointestinal: no organomegaly, soft, no tenderness - Neurologic Neurologic: CNII-XII intact - Musculoskeletal Musculoskeletal: strength equal bilaterally - Psychiatric Psychiatric: A&O x's 3, appropriate affect, intact judgment & insigh - Labs CBC & Chem 7: 07/25/17 05:22 07/25/17 05:22 Labs: Abnormal Lab Results - Last 24 Hours (Table) 07/24/17 07/24/17 07/24/17 Range/Units 14:24 16:27 18:11 MCHC (31.0-37.0) g/dL Neutrophils # (1.3-7.7) k/uL Lymphocytes # (1.0-4.8) k/uL Chloride (98-107) mmol/L Carbon Dioxide (22-30) mmol/L BUN (7-17) mg/dL Creatinine (0.52-1.04) mg/dL Glucose (74-99) mg/dL POC Glucose (mg/dL) 213 H 138 H 158 H (75-99) mg/dL Total Protein (6.3-8.2) g/dL Albumin (3.5-5.0) g/dL 07/24/17 07/24/17 07/24/17 Range/Units 19:57 22:08 23:57 MCHC (31.0-37.0) g/dL Neutrophils # (1.3-7.7) k/uL Lymphocytes # (1.0-4.8) k/uL Chloride (98-107) mmol/L Carbon Dioxide (22-30) mmol/L BUN (7-17) mg/dL Creatinine (0.52-1.04) mg/dL Glucose (74-99) mg/dL POC Glucose (mg/dL) 204 H 265 H 252 H (75-99) mg/dL Total Protein (6.3-8.2) g/dL Albumin (3.5-5.0) g/dL 07/25/17 07/25/17 07/25/17 Range/Units 02:19 03:53 05:22 MCHC 30.2 L (31.0-37.0) g/dL Neutrophils # 9.1 H (1.3-7.7) k/uL Lymphocytes # 0.3 L (1.0-4.8) k/uL Chloride (98-107) mmol/L Carbon Dioxide (22-30) mmol/L BUN (7-17) mg/dL Creatinine (0.52-1.04) mg/dL Glucose (74-99) mg/dL POC Glucose (mg/dL) 265 H 239 H (75-99) mg/dL Total Protein (6.3-8.2) g/dL Albumin (3.5-5.0) g/dL 07/25/17 07/25/17 07/25/17 Range/Units 05:22 06:01 10:41 MCHC (31.0-37.0) g/dL Neutrophils # (1.3-7.7) k/uL Lymphocytes # (1.0-4.8) k/uL Chloride 91 L (98-107) mmol/L Carbon Dioxide 38 H (22-30) mmol/L BUN 62 H (7-17) mg/dL Creatinine 1.30 H (0.52-1.04) mg/dL Glucose 184 H (74-99) mg/dL POC Glucose (mg/dL) 163 H 156 H (75-99) mg/dL Total Protein 6.0 L (6.3-8.2) g/dL Albumin 3.1 L (3.5-5.0) g/dL 07/25/17 Range/Units 11:46 MCHC (31.0-37.0) g/dL Neutrophils # (1.3-7.7) k/uL Lymphocytes # (1.0-4.8) k/uL Chloride (98-107) mmol/L Carbon Dioxide (22-30) mmol/L BUN (7-17) mg/dL Creatinine (0.52-1.04) mg/dL Glucose (74-99) mg/dL POC Glucose (mg/dL) 137 H (75-99) mg/dL Total Protein (6.3-8.2) g/dL Albumin (3.5-5.0) g/dL Microbiology - Last 24 Hours (Table) 07/22/17 12:14 Blood Culture - Preliminary Blood No Growth after 48 hours Assessment and Plan Plan: Assessment: #1. Acute COPD exacerbation with an element of tracheobronchitis, improving as the patient is being treated with a combination of bronchodilators, steroids and antibiotics. #2. Left lower lobe infiltrate suggestive of pneumonia, atelectasis versus effusion in the patient with a history of left lower lung lobectomy for lung cancer. Could represent a chronic finding. Small pleural effusion on the left was difficult to exclude. #3. Acute on chronic hypoxic respiratory failure secondary to COPD exacerbation and an element of congestive heart failure, proBNP is elevated at 2680 pG/mL and increased peripheral edema. 2-D echo results show EF between 55 and 60% with moderate to severe pulmonary hypertension with right ventricular systolic pressure of 57 mmHg. #4. History of lung cancer with left lobectomy and chemotherapy, unsure of the radiation therapy hypertension #5. History of coronary artery disease and stent placement, negative troponins 3 #6. Remote nicotine dependence, in remission #7. Underlying history of diabetes mellitus, with hypoglycemia, further episodes of hypoglycemia overnight #8. History of hypertension #9. Gastroesophageal reflux disease #10. Memory impairment #11 CHF exacerbation with increased lower extremity edema and the patient is currently on Lasix drip at 10 mg an hour #12 obstructive sleep apnea #13 episode of confusion which recovered without any residual neurologic deficits Plan No episodes of change in mental status. The patient was unable to get her CPAP machine from home. Continue bronchodilators. Kept on the low-dose of Lasix to 5 mg an hour. Continue systemic steroids in the Solu Medrol has been weaned down to 40 mg every 12 hours. Completed course of antibiotics with Rocephin and Zithromax. We'll continue to follow. Cardiology is on the case. The patient is on anticoagulation.
[2017-07-25 14:50] LABS: Glucose,Whole Blood 213 mg/dL (75-99)
[2017-07-25 17:29] LABS: Glucose,Whole Blood 130 mg/dL (75-99)
[2017-07-25 18:41] LABS: Glucose,Whole Blood 266 mg/dL (75-99)
[2017-07-25 20:10] LABS: Glucose,Whole Blood 217 mg/dL (75-99)
[2017-07-25] MEDS: methylPREDNISolone SOD SUCCI 40 MG/ML 1 ML VIAL IV SCH (21:07)
[2017-07-25] MEDS: ATORVASTATIN 40 MG TAB PO SCH (21:07)
[2017-07-25] MEDS: FAMOTIDINE 20 MG TAB PO SCH (21:07)
[2017-07-25] MEDS: MELOXICAM 7.5 MG TAB PO SCH (21:07)
[2017-07-25] MEDS: INSULIN REGULAR 100 UNIT in SODIUM CHLORIDE 0.9% 100 ML IV SCH (21:08)
[2017-07-25 22:05] LABS: Glucose,Whole Blood 218 mg/dL (75-99)
[2017-07-25] MEDS: FUROSEMIDE 250 MG in SODIUM CHLORIDE 0.9% 225 ML IVP SCH (22:53)
[2017-07-26 00:19] LABS: Glucose,Whole Blood 157 mg/dL (75-99)
[2017-07-26 02:11] LABS: Glucose,Whole Blood 168 mg/dL (75-99)
[2017-07-26 05:12] LABS: Glucose,Whole Blood 212 mg/dL (75-99)
[2017-07-26 06:18] LABS: Glucose,Whole Blood 216 mg/dL (75-99)
[2017-07-26] MEDS: PANTOPRAZOLE 40 MG TABLET PO SCH ×2 (06:59→17:23)
[2017-07-26] MEDS: INSULIN LISPRO (humaLOG) 300 UNIT/3 ML VIAL SQ SCH ×3 (06:59→17:23)
[2017-07-26 07:30] LABS: Basophils % (A) 0 %; CH 27.2; CHCM 30.7; Eosinophils % (A) 0 %; HCT 45.3 % (34.0-46.0); HDW 3.17; HGB 13.6 gm/dL (11.4-16.0); Hypochromasia Marked; Luc # (Auto) 0.09; Luc % (Auto) 1; Lymphocytes # (A) 0.6 k/uL (1.0-4.8); Lymphocytes % (A) 5 %; MCH 26.7 pg (25.0-35.0); MCV 88.9 fL (80.0-100.0); Mean Platelet Volume 7.2; Monocytes # (A) 0.5 k/uL (0-1.0); Monocytes % (A) 4 %; Neutrophils # (A) 9.7 k/uL (1.3-7.7); Neutrophils % (A) 90 %; RDW 15.5 % (11.5-15.5); WBC 10.8 k/uL (3.8-10.6); WBC (Perox) 10.94
[2017-07-26 07:49] LABS: Calcium 8.9 mg/dL (8.4-10.2); Potassium 5.1 mmol/L (3.5-5.1)
[2017-07-26 08:28] LABS: Glucose,Whole Blood 210 mg/dL (75-99)
[2017-07-26] MEDS: methylPREDNISolone SOD SUCCI 40 MG/ML 1 ML VIAL IV SCH ×2 (08:38→20:00)
[2017-07-26] MEDS: SPIRONOLACTONE 25 MG TAB PO SCH (08:38)
[2017-07-26] MEDS: CHOLECALCIFEROL 1,000 UNIT TAB PO SCH (08:39)
[2017-07-26] MEDS: CYANOCOBALAMIN 500 MCG TAB PO SCH (08:40)
[2017-07-26] MEDS: METOPROLOL SUCCINATE (ER) 50 MG TAB.ER.24H PO SCH (08:40)
[2017-07-26] MEDS: ASPIRIN 81 MG PO SCH (08:40)
[2017-07-26] MEDS: LOSARTAN 50 MG TAB PO SCH (08:41)
[2017-07-26] MEDS: APIXABAN 5 MG TAB PO SCH ×2 (08:41→20:00)
[2017-07-26] MEDS: LORATADINE 10 MG TAB PO SCH (08:41)
[2017-07-26] MEDS: GABAPENTIN 400 MG CAP PO SCH ×3 (08:42→20:00)
[2017-07-26] MEDS: AZITHROMYCIN 500 MG TAB PO SCH (08:42)
[2017-07-26] MEDS: HYDROCHLOROTHIAZIDE 12.5 MG CAP PO SCH (08:42)
[2017-07-26] MEDS: IPRATROPIUM-ALBUTEROL 3 ML NEB INHALATION SCH ×4 (08:54→19:36)
[2017-07-26] MEDS: SYMBICORT 80-4.5 MCG INHALER INHALATION SCH ×2 (08:54→19:35)
--- NOTE | 2017-07-26 09:08 | MR ---
EXAMINATION TYPE: MR brain wo/w con DATE OF EXAM: 07/26/2017 COMPARISON: CT brain 07/24/2017 HISTORY: Stroke/history of lung cancer TECHNIQUE: Multiplanar, multisequence images of the brain and brainstem is performed without and with IV contras t, utilizing 10 mL intravenous Gadavist . FINDINGS: There is artifact on the exam. Diffusion weighted images demonstrate no evidence of a recen t infarct or other diffusion abnormality. There is no extra-axial fluid collection. Periventricular white matter shows confluent and scattered hyperintensities on inversion recovery and T2-weighted se quences and there is hyperintensity within the mike and juxtacortical left parietal brain. The ventri cular system and cisternal spaces are normal in size and appearance. The brain volume is age appropr iate. Midline structures demonstrate normal morphology. The craniocervical junction appears within normal limits. Post contrast images demonstrate no abnormal enhancement. The dural venous sinuses appear pa tent. The visualized sinuses are remarkable for air-fluid level in the left maxillary sinus, inflamma tory change present within the ethmoid air cells, left mastoids, and the globes are intact. IMPRESSION: Sinus disease. Age-related atrophy and probable chronic small vessel ischemia. No abnorma l enhancement to suggest metastasis. There is some artifact over the exam.
[2017-07-26 10:21] LABS: Glucose,Whole Blood 137 mg/dL (75-99)
--- NOTE | 2017-07-26 11:14 | P.PN ---
Subjective Progress Note Date: 07/26/17 This is a 71-year-old female, patient of [facility]. She has a known past medical history of lung cancer with a previous left lower lobectomy and chemotherapy, diabetes mellitus, hypertension, coronary artery disease with previous cardiac stent, hyperlipidemia, COPD and bronchitis. Patient states over the last 2 days she's had worsening shortness of breath. She's also been having a mild cough which is productive at times. She has noted to have shortness of breath with walking a short distance. She denies any chest pain, nausea or vomiting, bowel movement changes or urinary symptoms. She denies any fevers chills or sweats. Patient was found to have atrial fibrillation with a rapid ventricular response on admission. Heart rate was 120. She was started on a Cardizem drip and IV heparin. Cardiology has been consulted. Patient was also started on IV Solu-Medrol for an acute COPD exacerbation. Also placed on antibiotics for questionable pneumonia versus bronchitis. She also had evidence of congestive heart failure BNP was elevated 2680. She has some bilateral lower extremity edema with a chest x-ray showing cardiomegaly and to correlate for possible pulmonary venous hypertension and interstitial edema. Patient did receive 1 dose of IV Lasix in the emergency room. Oxygen saturation on admission was at 86% and has gone up to 94% with 3 L. He has also been hypoglycemic with a blood sugar of 55. Patient reports that she has not taken her home medications state or eating anything today. This is likely contributing to patient's low blood sugar. Patient does not have a history of atrial fibrillation. Cardiology and pulmonary service have been consulted. 07/23/2017 patient has noted some improvement in her shortness of breath. However, during her morning shower she still had some shortness of breath. She' s currently on 5 L nasal cannula standing and 90%. Cardiology and pulmonary service are following. She is on IV steroids, IV Lasix and antibiotics. She denies any chest pain. Denies any nausea or vomiting. Reports having regular bowel movement. Denies any difficulty with urinating. 07/26/2017 patient started on a Lasix drip over the weekend. She also had some mental status changes and had undergone a computed tomography scan of the brain which was negative and a CTA was also negative. Patient was seen by neurology. They did order an MRI of the brain. There is no evidence of any metastatic disease to the brain. Patient is alert and responding to questions appropriately. She reports about 4 days since her last bowel movement. She denies any chest pain or shortness of breath denies any nausea or vomiting. Denies any burning with urination Objective - Vital Signs Vital signs: Vital Signs Temp 97.0 F L 07/26/17 08:00 Pulse 94 07/26/17 09:05 Resp 18 07/26/17 08:00 BP 125/65 07/26/17 08:00 Pulse Ox 97 07/26/17 08:00 Intake & Output 07/25/17 07/26/17 07/26/17 18:59 06:59 18:59 Intake Total 612.944 300.378 256.452 Output Total 4000 Balance 612.944 -3699.622 256.452 Weight 105.2 kg 102.8 kg Intake: IV 50 Furosemide 250 mg In 50 Sodium Chloride 0.9% 225 ml @ 5 MG/HR 5 mls/hr IVP .Q24H [facility] Rx#:[id number] Intake, IV Titration 82.944 300.378 20.452 Amount Furosemide 250 mg In 250 Sodium Chloride 0.9% 225 ml @ 5 MG/HR 5 mls/hr IVP .Q24H [facility] Rx#:[id number] Insulin Regular 100 unit 32.944 50.378 20.452 In Sodium Chloride 0.9% 100 ml @ Titrate IV .Q0M [facility] Rx#:[id number] cefTRIAXone 1,000 mg In 50 Sodium Chloride 0.9% 50 ml @ 100 mls/hr IVPB Q24HR [facility] Rx#:[id number] Oral 480 236 Output: Urine 4000 Other: Voiding Method Bedside Commode Bedside Commode Bedside Commode # Voids 1 - Exam Head normocephalic Neck supple Lungs echo this right lower lobe Heart regular rate and rhythm S1-S2, no rub or gallop Abdomen is soft nontender nondistended positive bowel sounds no hepatosplenomegaly Extremities 1-2+ edema bilateral lower extremities and legs are softer. Neuro alert and orientated to 3 - Labs CBC & Chem 7: 07/26/17 06:12 07/26/17 06:12 Labs: Abnormal Lab Results - Last 24 Hours (Table) 07/25/17 07/25/17 07/25/17 Range/Units 11:46 14:47 16:58 WBC (3.8-10.6) k/uL MCHC (31.0-37.0) g/dL Neutrophils # (1.3-7.7) k/uL Lymphocytes # (1.0-4.8) k/uL Chloride (98-107) mmol/L Carbon Dioxide (22-30) mmol/L BUN (7-17) mg/dL Creatinine (0.52-1.04) mg/dL Glucose (74-99) mg/dL POC Glucose (mg/dL) 137 H 213 H 130 H (75-99) mg/dL 07/25/17 07/25/17 07/25/17 Range/Units 18:27 19:57 22:04 WBC (3.8-10.6) k/uL MCHC (31.0-37.0) g/dL Neutrophils # (1.3-7.7) k/uL Lymphocytes # (1.0-4.8) k/uL Chloride (98-107) mmol/L Carbon Dioxide (22-30) mmol/L BUN (7-17) mg/dL Creatinine (0.52-1.04) mg/dL Glucose (74-99) mg/dL POC Glucose (mg/dL) 266 H 217 H 218 H (75-99) mg/dL 07/26/17 07/26/17 07/26/17 Range/Units 00:17 02:10 05:10 WBC (3.8-10.6) k/uL MCHC (31.0-37.0) g/dL Neutrophils # (1.3-7.7) k/uL Lymphocytes # (1.0-4.8) k/uL Chloride (98-107) mmol/L Carbon Dioxide (22-30) mmol/L BUN (7-17) mg/dL Creatinine (0.52-1.04) mg/dL Glucose (74-99) mg/dL POC Glucose (mg/dL) 157 H 168 H 212 H (75-99) mg/dL 07/26/17 07/26/17 07/26/17 Range/Units 06:12 06:12 06:13 WBC 10.8 H (3.8-10.6) k/uL MCHC 30.0 L (31.0-37.0) g/dL Neutrophils # 9.7 H (1.3-7.7) k/uL Lymphocytes # 0.6 L (1.0-4.8) k/uL Chloride 91 L (98-107) mmol/L Carbon Dioxide 39 H (22-30) mmol/L BUN 57 H (7-17) mg/dL Creatinine 1.10 H (0.52-1.04) mg/dL Glucose 182 H (74-99) mg/dL POC Glucose (mg/dL) 216 H (75-99) mg/dL 07/26/17 07/26/17 Range/Units 08:16 10:16 WBC (3.8-10.6) k/uL MCHC (31.0-37.0) g/dL Neutrophils # (1.3-7.7) k/uL Lymphocytes # (1.0-4.8) k/uL Chloride (98-107) mmol/L Carbon Dioxide (22-30) mmol/L BUN (7-17) mg/dL Creatinine (0.52-1.04) mg/dL Glucose (74-99) mg/dL POC Glucose (mg/dL) 210 H 137 H (75-99) mg/dL Microbiology - Last 24 Hours (Table) 07/22/17 12:14 Blood Culture - Preliminary Blood No Growth after 72 hours Assessment and Plan Plan: 1. Acute and chronic hypoxic respiratory failure: multifactorial likely related to COPD exacerbation, atrial fibrillation with rapid ventricular response, CHF exacerbation and bronchitis 2. Acute COPD exacerbation patient is been placed on IV Solu-Medrol with bronchodilators. We'll monitor service is following 3. Acute tracheobronchitis: Patient has been started on Rocephin and azithromycin. Pulmonary service following. They have reviewed this chest x- ray and likely left lower lobe changes are chronic. They were present on previous admission in November 2016 and 2009 4. Atrial fibrillation with rapid ventricular response and new onset: Eliquis 5 mg twice a day for anticoagulation and metoprolol for rate control. Cardiology did increase metoprolol to 50 mg daily 5. Acute diastolic CHF exacerbation: started on Lasix drip over the weekend. Echo shows an EF of 55-60%. There is moderate to severe pulmonary hypertension. And a small pericardial effusion. We'll await further cardiology and pulmonary recommendations 6. History of lung cancer status post left lower lobectomy and chemotherapy 7. Diabetes mellitus type 2 with hypoglycemia: On insulin drip due to hyperglycemia from steroids 8. History of coronary artery disease with previous angioplasty and stent placement 9. Altered mental status changes: MRI of the brain so shows no metastatic disease. Neurology is following. Patient did have a code stroke called during the weekend. Computed tomography scan of the brain negative and CTA negative. Symptoms may be related to a metabolic encephalopathy from her acute infection or possibly steroid induced psychosis. States steroids were tapered down over the weekend. Patient appears back at baseline. 10. Constipation start Colace and give lactulose Consult physical therapy GI prophylaxis Protonix and DVT prophylaxis Mary I performed an examination of the patient and discussed their management with the physician Glass Processing Worker. I have reviewed the Physician Glass Processing Worker's notes and agree with the documented findings and plan of care
[2017-07-26] MEDS ORDERED: LACTULOSE 20 GM/30 ML CUP PO ONE (11:15)
--- NOTE | 2017-07-26 11:19 | P.PN ---
Subjective Progress Note Date: 07/26/17 Principal diagnosis: Acute exacerbation of COPD, congestive heart failure, left lung atelectasis and previous lobectomy of the left lower lobe. This is a 71-year-old female patient with past medical history of COPD, lung cancer status post left lower lobectomy with chemoradiation, diabetes mellitus, hypertension, GERD who presented to the emergency room from her PCPs office Dr. Joan Stringer with complaints of increased shortness of breath since yesterday and a mild productive cough with small amount of thick yellow sputum. She denied fever or chills, chest congestion, hemoptysis, or wheezing. She also noted increased swelling in bilateral arms and legs, which is new to her. She denied chest pain or orthopnea. Patient is a remote smoker, with a 25-pack- year history, quit many years ago. Her symptoms also included generalized weakness, which is significantly worse today. When she presented to her PCPs office, she was told she had pneumonia. On presentation to the emergency room patient was found to be in A. fib with RVR with a rate of 120 BPM and hypoxic with O2 sat of 86% on 2 L per nasal cannula. She does wear home O2 at bedtime at 2 L. She was initiated on Cardizem drip for rate control and heparin drip per protocol. She sees Dr. Ledezma for management of her chronic COPD, and she is on Advair 250/50 and albuterol nebulized treatments as well as her rescue inhaler at home. Her last admission for COPD exacerbation and tracheobronchitis was in November 2016. Of note she was also found to be hypoglycemic in the emergency room with a blood sugar of 61, which was treated per hypoglycemia protocol. Patient is on a combination of glimepiride, metformin, NovoLog flex pen and Tresiba insulin at home. Her capillary blood sugar was rechecked after crackers and juice and is now at 74 mg/dL. Patient is awake alert, in no acute distress. On examination her lungs sounds scattered end expiratory wheezes throughout the lung castro with absent lung sounds over left lower lobe. No significant sputum production, no rhonchi. Chest x-ray showed cardiomegaly with prominent central vascularity and prominent interstitium. Left lower lobe density could be related to her history of left lower lung lobectomy. Patient has no leukocytosis, no signs of chest congestion or fever. No chills or night sweats. ProBNP 2680, patient is on Lasix 40 mg every 8 hours per attending. Patient has a history of obstructive sleep apnea for which she wears CPAP device at home but she is unsure of her home settings. Family will be asked to bring the home CPAP unit here. On 07/23/2017 patient is seen in follow-up. She is sleeping sitting up on her bedside table. She denied fever or chills, she denied coughing or any sputum production. Lung sounds are diminished with end expiratory wheezes on forced exhale maneuver. She is wearing 5 L oxygen per nasal cannula with O2 saturations around 90%. Chest x-ray from 07/23/2017 has been reviewed. Showed increased pulmonary vascularity, cardiomegaly, and retrocardiac density. She continues on Cardizem drip at 5 mg per hour, she remains in A. fib with a better controlled rate, around 89 BPM today. Continues on heparin drip for anticoagulation. IV Lasix with mild diuresis, she has a -573 mL balance overnight over the last 24 hours. She continues on IV steroids and on antibiotics in the form of Zithromax and Rocephin. She denies any chest pain. He states her breathing is slightly better today. Her bilateral lower leg edema show slight improvement. On 07/24/2017 the patient is being seen for a follow-up. The patient is still being treated for acute CHF, atrial fibrillation an acute COPD exacerbation. Note that around 3:57 AM in the morning the patient had an event where she woke up confused and disoriented. Code stroke was called and the patient was taken for a CAT scan that showed no acute abnormalities in the head and there was no evidence of any acute or recent territorial infarct. CT angios the brain was also done that showed no vascular abnormalities of occlusion. This lasted only for 15 minutes and the patient recovered. During this time the patient did not have any hypotension, cardiac arrhythmia or hypoglycemia. Note that the patient has obstructive sleep apnea and she has not been using his CPAP machine during her current hospital stay. For now, the patient is still in atrial fibrillation.. Have cardiac rhythm is atrial fibrillation. The patient is still on Lasix drip for diuresis. She is producing adequate amount of urine output. Her COPD exacerbation is also being treated with a combination of DuoNeb nebulized treatments around the clock and IV Solu-Medrol. She is also on examination Rocephin and Zithromax. She is post left lower lobe resection for a previous history of non-small cell lung cancer. She is obese. She still has extensive edema in lower eczematous bilaterally. On 07/25/2017 the patient is being seen for a follow-up. The Lasix drip has been drop down to 5 mg an hour. Still producing adequate amount of urine output. Still on a combination of Rocephin and Zithromax. Chest x-ray from today shows volume loss in the left lower lobe related to a previous left lower lobe resection. No acute abnormalities or airspace disease. Still on DuoNeb nebulized treatments around the clock. Still on IV Solu Medrol 40 mg every 12 hours. No loss in consciousness. No altered mental status. The patient is on long-term anticoagulation with Eliquis On 07/26/2017, patient is doing better, remains on Lasix drip at 5 mg per hour. Adequate urine output is noted, remains on antibiotics including Rocephin and Zithromax for presumptive left lung pneumonia. Patient has mostly left lower lobe atelectasis. And she had a previous lobectomy. Remains on bronchodilators for underlying COPD, and remains on steroids. Overall the patient is doing much better and breathing easier. Continues to have significant swelling in lower extremities in spite of a Lasix drip. CBC was relatively normal basic metabolic profile was normal bicarb is 39 BUN is 57 creatinine is 1.1. Objective - Vital Signs Vital signs: Vital Signs Temp 97.0 F L 07/26/17 08:00 Pulse 94 07/26/17 09:05 Resp 18 07/26/17 08:00 BP 125/65 07/26/17 08:00 Pulse Ox 97 07/26/17 08:00 Intake & Output 07/25/17 07/26/17 07/26/17 18:59 06:59 18:59 Intake Total 612.944 300.378 256.452 Output Total 4000 Balance 612.944 -3699.622 256.452 Weight 105.2 kg 102.8 kg Intake: IV 50 Furosemide 250 mg In 50 Sodium Chloride 0.9% 225 ml @ 5 MG/HR 5 mls/hr IVP .Q24H [facility] Rx#:[id number] Intake, IV Titration 82.944 300.378 20.452 Amount Furosemide 250 mg In 250 Sodium Chloride 0.9% 225 ml @ 5 MG/HR 5 mls/hr IVP .Q24H [facility] Rx#:[id number] Insulin Regular 100 unit 32.944 50.378 20.452 In Sodium Chloride 0.9% 100 ml @ Titrate IV .Q0M [facility] Rx#:[id number] cefTRIAXone 1,000 mg In 50 Sodium Chloride 0.9% 50 ml @ 100 mls/hr IVPB Q24HR [facility] Rx#:[id number] Oral 480 236 Output: Urine 4000 Other: Voiding Method Bedside Commode Bedside Commode Bedside Commode # Voids 1 - Exam Constitutional General appearance: Revealed a 71-year-old female in no form of respiratory distress. Eyes: PERRLA, dentition normal ENT: NA/AT, normal oropharynx - Neck Neck: normal ROM Carotids: bilateral: upstroke normal Thyroid: bilateral: normal size - Respiratory Respiratory: bilateral: diminished (Left lower lobe), dullness (Left lower lobe) , no crackles, no rhonchi, no wheezes. - Cardiovascular Rhythm: irregularly irregular, secondary to atrial fibrillation and the patient has 2+ pitting edema in the lower extremities bilaterally. Heart sounds: normal: S1, S2 ankle Peripheral Edema: bilateral: 1+ foot Peripheral Edema: bilateral: 1+ dorsalis pedis Peripheral Pulses: bilateral: Normal radial pulse Peripheral Pulses: bilateral: Normal - Gastrointestinal General gastrointestinal: Soft, nontender, no megaly, no rebound, no guarding, positive bowel sounds. - Neurologic Neurologic: No gross focal neurologic deficit. - Musculoskeletal Musculoskeletal: strength equal bilaterally - Psychiatric Psychiatric: A&O x's 3, normal mental status exam, normal affect, and normal mood. - Labs CBC & Chem 7: 07/26/17 06:12 07/26/17 06:12 Labs: Abnormal Lab Results - Last 24 Hours (Table) 07/25/17 07/25/17 07/25/17 Range/Units 11:46 14:47 16:58 WBC (3.8-10.6) k/uL MCHC (31.0-37.0) g/dL Neutrophils # (1.3-7.7) k/uL Lymphocytes # (1.0-4.8) k/uL Chloride (98-107) mmol/L Carbon Dioxide (22-30) mmol/L BUN (7-17) mg/dL Creatinine (0.52-1.04) mg/dL Glucose (74-99) mg/dL POC Glucose (mg/dL) 137 H 213 H 130 H (75-99) mg/dL 07/25/17 07/25/17 07/25/17 Range/Units 18:27 19:57 22:04 WBC (3.8-10.6) k/uL MCHC (31.0-37.0) g/dL Neutrophils # (1.3-7.7) k/uL Lymphocytes # (1.0-4.8) k/uL Chloride (98-107) mmol/L Carbon Dioxide (22-30) mmol/L BUN (7-17) mg/dL Creatinine (0.52-1.04) mg/dL Glucose (74-99) mg/dL POC Glucose (mg/dL) 266 H 217 H 218 H (75-99) mg/dL 07/26/17 07/26/17 07/26/17 Range/Units 00:17 02:10 05:10 WBC (3.8-10.6) k/uL MCHC (31.0-37.0) g/dL Neutrophils # (1.3-7.7) k/uL Lymphocytes # (1.0-4.8) k/uL Chloride (98-107) mmol/L Carbon Dioxide (22-30) mmol/L BUN (7-17) mg/dL Creatinine (0.52-1.04) mg/dL Glucose (74-99) mg/dL POC Glucose (mg/dL) 157 H 168 H 212 H (75-99) mg/dL 07/26/17 07/26/17 07/26/17 Range/Units 06:12 06:12 06:13 WBC 10.8 H (3.8-10.6) k/uL MCHC 30.0 L (31.0-37.0) g/dL Neutrophils # 9.7 H (1.3-7.7) k/uL Lymphocytes # 0.6 L (1.0-4.8) k/uL Chloride 91 L (98-107) mmol/L Carbon Dioxide 39 H (22-30) mmol/L BUN 57 H (7-17) mg/dL Creatinine 1.10 H (0.52-1.04) mg/dL Glucose 182 H (74-99) mg/dL POC Glucose (mg/dL) 216 H (75-99) mg/dL 07/26/17 07/26/17 Range/Units 08:16 10:16 WBC (3.8-10.6) k/uL MCHC (31.0-37.0) g/dL Neutrophils # (1.3-7.7) k/uL Lymphocytes # (1.0-4.8) k/uL Chloride (98-107) mmol/L Carbon Dioxide (22-30) mmol/L BUN (7-17) mg/dL Creatinine (0.52-1.04) mg/dL Glucose (74-99) mg/dL POC Glucose (mg/dL) 210 H 137 H (75-99) mg/dL Microbiology - Last 24 Hours (Table) 07/22/17 12:14 Blood Culture - Preliminary Blood No Growth after 72 hours Assessment and Plan Plan: #1. Acute COPD exacerbation with an element of tracheobronchitis, improving as the patient is being treated with a combination of bronchodilators, steroids and antibiotics. #2. Possible Left lower lobe infiltrate suggestive of pneumonia, atelectasis versus effusion in the patient with a history of left lower lung lobectomy for lung cancer. Could represent a chronic finding. Small pleural effusion on the left was difficult to exclude. #3. Acute on chronic hypoxic respiratory failure secondary to COPD exacerbation and an element of congestive heart failure, proBNP is elevated at 2680 pG/mL and increased peripheral edema. 2-D echo results show EF between 55 and 60% with moderate to severe pulmonary hypertension with right ventricular systolic pressure of 57 mmHg. #4. History of lung cancer with left lobectomy and chemotherapy #5. History of coronary artery disease and stent placement, negative troponins 3 #6. Remote nicotine dependence, in remission #7. Underlying history of diabetes mellitus, with hypoglycemia, further episodes of hypoglycemia overnight #8. History of hypertension #9. Gastroesophageal reflux disease #10. Memory impairment #11 CHF exacerbation with increased lower extremity edema and the patient is currently on Lasix drip at 10 mg an hour #12 obstructive sleep apnea #13 episode of confusion which recovered without any residual neurologic deficits Recommendation: Continue present treatment plan, continue bronchodilators and antibiotics, continue Lasix drip, not quite ready for discharge planning. Repeat chest x-ray in the next couple of days. We'll continue to follow.
[2017-07-26] MEDS: DOCUSATE 100 MG CAP PO SCH ×2 (12:05→20:00)
[2017-07-26 12:10] LABS: Glucose,Whole Blood 105 mg/dL (75-99)
[2017-07-26 13:04] LABS: Glucose,Whole Blood 170 mg/dL (75-99)
--- NOTE | 2017-07-26 15:02 | PN ---
PROGRESS NOTE This patient is admitted with congestive cardiac failure with significant leg edema. Patient is doing better. Her breathing has improved. She has been diuresing fairly well. Her weight is down by 3 kg. Denies any orthopnea or PND. Patient's creatinine has remained stable. Electrolytes are normal. The patient is afebrile. Blood pressure is 133/80 mmHg. Oxygen saturation is 97%. The first and second heart sounds are normal. Lung examination reveals bilateral basal rales. Patient still has a 2 to 3+ pedal edema. RECOMMENDATIONS: I will continue the Lasix drip. In view that the patient is on Eliquis, I will discontinue the Mobic and aspirin. MMODL / IJN: [id number] /
[2017-07-26 15:11] LABS: Glucose,Whole Blood 154 mg/dL (75-99)
[2017-07-26 16:57] LABS: Glucose,Whole Blood 166 mg/dL (75-99)
[2017-07-26 19:18] LABS: Glucose,Whole Blood 207 mg/dL (75-99)
[2017-07-26] MEDS: FAMOTIDINE 20 MG TAB PO SCH (20:00)
[2017-07-26] MEDS: ATORVASTATIN 40 MG TAB PO SCH (20:00)
[2017-07-26 20:51] LABS: Glucose,Whole Blood 154 mg/dL (75-99)
--- NOTE | 2017-07-26 21:38 | EEG ---
ELECTROENCEPHALOGRAM REPORT INTERPRETING PHYSICIAN: Anthony Del Real M.D. INDICATION FOR EXAMINATION: This patient is a 71-year-old female being evaluated for acute onset of confusion and possible stroke. Patient with new onset atrial fibrillation and congestive heart failure. Patient now with increased confusion with negative CT scan of the brain. The patient has history of memory impairment. AGE: 71 EEG FINDINGS: A routine 21-channel awake digital EEG recording was accomplished utilizing the 10-20 international system with bipolar and referential montages. The background activity in the most alert resting state consists of a low to medium amplitude, poorly developed and poorly sustained 4-5 Hertz activity over the posterior head regions. This posterior rhythm attenuates minimally to eye opening. There is a small amount of low amplitude 18-20 Hertz beta activity seen maximally over the anterior head regions. Muscle and movement artifact was observed on a few occasions during the tracing. Hyperventilation was not performed. Photic stimulation at flash frequencies of 2-30 Hertz produced a minimal occipital driving response. No epileptiform discharges were seen. IMPRESSION: This EEG gives evidence of a severe widespread diffuse disturbance in cerebral function. The EEG failed to reveal any focal, lateralized, or epileptiform abnormalities. Clinical correlation is recommended. MMODL / IJN: [id number] /
[2017-07-26 23:29] LABS: Glucose,Whole Blood 144 mg/dL (75-99)
[2017-07-27] MEDS: INSULIN REGULAR 100 UNIT in SODIUM CHLORIDE 0.9% 100 ML IV SCH (00:45)
[2017-07-27 01:12] LABS: Glucose,Whole Blood 201 mg/dL (75-99)
[2017-07-27 03:06] LABS: Glucose,Whole Blood 192 mg/dL (75-99)
[2017-07-27 05:14] LABS: Glucose,Whole Blood 165 mg/dL (75-99)
[2017-07-27 06:51] LABS: Basophils % (A) 0 %; CH 27.1; CHCM 31.1; Eosinophils % (A) 0 %; HCT 46.2 % (34.0-46.0); HDW 3.08; HGB 14.3 gm/dL (11.4-16.0); Hypochromasia Moderate; Luc % (Auto) 1; Lymphocytes # (A) 0.9 k/uL (1.0-4.8); Lymphocytes % (A) 8 %; MCH 27.2 pg (25.0-35.0); MCV 87.6 fL (80.0-100.0); Mean Platelet Volume 7.5; Monocytes # (A) 0.7 k/uL (0-1.0); Monocytes % (A) 6 %; Neutrophils # (A) 9.8 k/uL (1.3-7.7); Neutrophils % (A) 85 %; RBC 5.27 m/uL (3.80-5.40); RDW 15.4 % (11.5-15.5); WBC 11.5 k/uL (3.8-10.6); WBC (Perox) 11.16
[2017-07-27] MEDS: PANTOPRAZOLE 40 MG TABLET PO SCH ×2 (06:56→16:20)
[2017-07-27] MEDS: INSULIN LISPRO (humaLOG) 300 UNIT/3 ML VIAL SQ SCH ×3 (06:56→17:23)
[2017-07-27 06:59] LABS: Blood Urea Nitrogen 51 mg/dL (7-17); Chloride 86 mmol/L (98-107); Glucose 199 mg/dL (74-99); Magnesium 1.9 mg/dL (1.6-2.3); Non-African American GFR(MDRD) 56 (>60 ml/min/1.73 sqM); Potassium 4.3 mmol/L (3.5-5.1); Sodium 139 mmol/L (137-145)
[2017-07-27 07:05] LABS: Glucose,Whole Blood 166 mg/dL (75-99)
[2017-07-27 07:06] LABS: Anion Gap 13 mmol/L
[2017-07-27 07:20] LABS: Carbon Dioxide 40 mmol/L (22-30)
[2017-07-27] MEDS: LORATADINE 10 MG TAB PO SCH (08:22)
[2017-07-27] MEDS: SPIRONOLACTONE 25 MG TAB PO SCH (08:22)
[2017-07-27] MEDS: METOPROLOL SUCCINATE (ER) 50 MG TAB.ER.24H PO SCH (08:22)
[2017-07-27] MEDS: CYANOCOBALAMIN 500 MCG TAB PO SCH (08:23)
[2017-07-27] MEDS: CHOLECALCIFEROL 1,000 UNIT TAB PO SCH (08:23)
[2017-07-27] MEDS: DOCUSATE 100 MG CAP PO SCH ×2 (08:23→20:00)
[2017-07-27] MEDS: GABAPENTIN 400 MG CAP PO SCH ×3 (08:24→21:12)
[2017-07-27] MEDS: APIXABAN 5 MG TAB PO SCH ×2 (08:24→20:00)
[2017-07-27] MEDS: AZITHROMYCIN 500 MG TAB PO SCH (08:24)
[2017-07-27] MEDS: LOSARTAN 50 MG TAB PO SCH (08:24)
[2017-07-27] MEDS: methylPREDNISolone SOD SUCCI 40 MG/ML 1 ML VIAL IV SCH ×2 (08:25→19:59)
[2017-07-27] MEDS: SYMBICORT 80-4.5 MCG INHALER INHALATION SCH ×2 (08:26→20:27)
[2017-07-27] MEDS: IPRATROPIUM-ALBUTEROL 3 ML NEB INHALATION SCH ×4 (08:27→20:27)
[2017-07-27 10:15] LABS: Glucose,Whole Blood 138 mg/dL (75-99)
[2017-07-27 12:04] LABS: Glucose,Whole Blood 167 mg/dL (75-99)
--- NOTE | 2017-07-27 12:13 | P.PN ---
Subjective Progress Note Date: 07/27/17 This is a 71-year-old female, patient of [facility]. She has a known past medical history of lung cancer with a previous left lower lobectomy and chemotherapy, diabetes mellitus, hypertension, coronary artery disease with previous cardiac stent, hyperlipidemia, COPD and bronchitis. Patient states over the last 2 days she's had worsening shortness of breath. She's also been having a mild cough which is productive at times. She has noted to have shortness of breath with walking a short distance. She denies any chest pain, nausea or vomiting, bowel movement changes or urinary symptoms. She denies any fevers chills or sweats. Patient was found to have atrial fibrillation with a rapid ventricular response on admission. Heart rate was 120. She was started on a Cardizem drip and IV heparin. Cardiology has been consulted. Patient was also started on IV Solu-Medrol for an acute COPD exacerbation. Also placed on antibiotics for questionable pneumonia versus bronchitis. She also had evidence of congestive heart failure BNP was elevated 2680. She has some bilateral lower extremity edema with a chest x-ray showing cardiomegaly and to correlate for possible pulmonary venous hypertension and interstitial edema. Patient did receive 1 dose of IV Lasix in the emergency room. Oxygen saturation on admission was at 86% and has gone up to 94% with 3 L. He has also been hypoglycemic with a blood sugar of 55. Patient reports that she has not taken her home medications state or eating anything today. This is likely contributing to patient's low blood sugar. Patient does not have a history of atrial fibrillation. Cardiology and pulmonary service have been consulted. 07/23/2017 patient has noted some improvement in her shortness of breath. However, during her morning shower she still had some shortness of breath. She' s currently on 5 L nasal cannula standing and 90%. Cardiology and pulmonary service are following. She is on IV steroids, IV Lasix and antibiotics. She denies any chest pain. Denies any nausea or vomiting. Reports having regular bowel movement. Denies any difficulty with urinating. 07/26/2017 patient started on a Lasix drip over the weekend. She also had some mental status changes and had undergone a computed tomography scan of the brain which was negative and a CTA was also negative. Patient was seen by neurology. They did order an MRI of the brain. There is no evidence of any metastatic disease to the brain. Patient is alert and responding to questions appropriately. She reports about 4 days since her last bowel movement. She denies any chest pain or shortness of breath denies any nausea or vomiting. Denies any burning with urination 07/27/2017 patient denies any chest pain or shortness breath. Denies any nausea or vomiting. Reports having bowel movements. Denies any burning with urination. Telemetry monitoring shows A. fib with a heart rate between 100-120 at times. Objective - Vital Signs Vital signs: Vital Signs Temp 97.4 F L 07/27/17 08:00 Pulse 84 07/27/17 12:05 Resp 18 07/27/17 08:00 BP 135/75 07/27/17 08:00 Pulse Ox 91 L 07/27/17 08:00 Intake & Output 07/26/17 07/27/17 07/27/17 18:59 06:59 18:59 Intake Total 828.140 37.910 493.130 Output Total 4200 Balance 828.140 -4162.090 493.130 Weight 101.3 kg Intake: Intake, IV Titration 32.140 37.910 13.130 Amount Insulin Regular 100 unit 32.140 37.910 13.130 In Sodium Chloride 0.9% 100 ml @ Titrate IV .Q0M [facility] Rx#:[id number] Oral 796 480 Output: Urine 4200 Other: Voiding Method Bedside Commode Bedside Commode Bedside Commode # Voids 1 1 # Bowel Movements 0 - Exam Head normocephalic Neck supple Lungs diminished bilaterally Heart regular rate and rhythm S1-S2, no rub or gallop Abdomen is soft nontender nondistended positive bowel sounds no hepatosplenomegaly Extremities 1-2+ edema bilateral lower extremities and legs are softer. Neuro alert and orientated to 3 - Labs CBC & Chem 7: 07/27/17 05:52 07/27/17 05:52 Labs: Abnormal Lab Results - Last 24 Hours (Table) 07/26/17 07/26/17 07/26/17 Range/Units 12:53 14:59 16:54 WBC (3.8-10.6) k/uL Hct (34.0-46.0) % Neutrophils # (1.3-7.7) k/uL Lymphocytes # (1.0-4.8) k/uL Chloride (98-107) mmol/L Carbon Dioxide (22-30) mmol/L BUN (7-17) mg/dL Glucose (74-99) mg/dL POC Glucose (mg/dL) 170 H 154 H 166 H (75-99) mg/dL 07/26/17 07/26/17 07/26/17 Range/Units 19:17 20:49 23:17 WBC (3.8-10.6) k/uL Hct (34.0-46.0) % Neutrophils # (1.3-7.7) k/uL Lymphocytes # (1.0-4.8) k/uL Chloride (98-107) mmol/L Carbon Dioxide (22-30) mmol/L BUN (7-17) mg/dL Glucose (74-99) mg/dL POC Glucose (mg/dL) 207 H 154 H 144 H (75-99) mg/dL 07/27/17 07/27/17 07/27/17 Range/Units 00:59 03:05 05:12 WBC (3.8-10.6) k/uL Hct (34.0-46.0) % Neutrophils # (1.3-7.7) k/uL Lymphocytes # (1.0-4.8) k/uL Chloride (98-107) mmol/L Carbon Dioxide (22-30) mmol/L BUN (7-17) mg/dL Glucose (74-99) mg/dL POC Glucose (mg/dL) 201 H 192 H 165 H (75-99) mg/dL 07/27/17 07/27/17 07/27/17 Range/Units 05:52 05:52 07:03 WBC 11.5 H (3.8-10.6) k/uL Hct 46.2 H (34.0-46.0) % Neutrophils # 9.8 H (1.3-7.7) k/uL Lymphocytes # 0.9 L (1.0-4.8) k/uL Chloride 86 L (98-107) mmol/L Carbon Dioxide 40 H* (22-30) mmol/L BUN 51 H (7-17) mg/dL Glucose 199 H (74-99) mg/dL POC Glucose (mg/dL) 166 H (75-99) mg/dL 07/27/17 07/27/17 Range/Units 10:03 11:52 WBC (3.8-10.6) k/uL Hct (34.0-46.0) % Neutrophils # (1.3-7.7) k/uL Lymphocytes # (1.0-4.8) k/uL Chloride (98-107) mmol/L Carbon Dioxide (22-30) mmol/L BUN (7-17) mg/dL Glucose (74-99) mg/dL POC Glucose (mg/dL) 138 H 167 H (75-99) mg/dL Microbiology - Last 24 Hours (Table) 07/22/17 12:14 Blood Culture - Preliminary Blood No Growth after 96 hours Assessment and Plan Plan: 1. Acute and chronic hypoxic respiratory failure: multifactorial likely related to COPD exacerbation, atrial fibrillation with rapid ventricular response, CHF exacerbation and bronchitis 2. Acute COPD exacerbation patient is been placed on IV Solu-Medrol with bronchodilators. We'll monitor service is following 3. Acute tracheobronchitis: Patient has been started on Rocephin and azithromycin. Pulmonary service following. They have reviewed this chest x- ray and likely left lower lobe changes are chronic. They were present on previous admission in November 2016 and 2009 4. Atrial fibrillation with rapid ventricular response and new onset: Eliquis 5 mg twice a day for anticoagulation and metoprolol for rate control. Cardiology did increase metoprolol to 50 mg daily. Cardiology following. They discontinue the aspirin and Motrin while patient is on Eliquis 5. Acute diastolic CHF exacerbation: started on Lasix drip over the weekend. Echo shows an EF of 55-60%. There is moderate to severe pulmonary hypertension. And a small pericardial effusion. We'll await further cardiology and pulmonary recommendations 6. History of lung cancer status post left lower lobectomy and chemotherapy 7. Diabetes mellitus type 2 with hypoglycemia: On insulin drip due to hyperglycemia from steroids 8. History of coronary artery disease with previous angioplasty and stent placement 9. Altered mental status changes: MRI of the brain so shows no metastatic disease. Neurology is following. Patient did have a code stroke called during the weekend. Computed tomography scan of the brain negative and CTA negative. Symptoms may be related to a metabolic encephalopathy from her acute infection or possibly steroid induced psychosis. States steroids were tapered down over the weekend. Patient appears back at baseline. 10. Constipation start Colace and give lactulose Consult physical therapy GI prophylaxis Protonix and DVT prophylaxis Mary I performed an examination of the patient and discussed their management with the physician Emergency Communications Operator. I have reviewed the Physician Emergency Communications Operator's notes and agree with the documented findings and plan of care
--- NOTE | 2017-07-27 12:47 | P.PN ---
Subjective Progress Note Date: 07/27/17 Principal diagnosis: Acute exacerbation of COPD, congestive heart failure, left lung atelectasis and previous lobectomy of the left lower lobe. This is a 71-year-old female patient with past medical history of COPD, lung cancer status post left lower lobectomy with chemoradiation, diabetes mellitus, hypertension, GERD who presented to the emergency room from her PCPs office Dr. Joan Stringer with complaints of increased shortness of breath since yesterday and a mild productive cough with small amount of thick yellow sputum. She denied fever or chills, chest congestion, hemoptysis, or wheezing. She also noted increased swelling in bilateral arms and legs, which is new to her. She denied chest pain or orthopnea. Patient is a remote smoker, with a 25-pack- year history, quit many years ago. Her symptoms also included generalized weakness, which is significantly worse today. When she presented to her PCPs office, she was told she had pneumonia. On presentation to the emergency room patient was found to be in A. fib with RVR with a rate of 120 BPM and hypoxic with O2 sat of 86% on 2 L per nasal cannula. She does wear home O2 at bedtime at 2 L. She was initiated on Cardizem drip for rate control and heparin drip per protocol. She sees Dr. Ledezma for management of her chronic COPD, and she is on Advair 250/50 and albuterol nebulized treatments as well as her rescue inhaler at home. Her last admission for COPD exacerbation and tracheobronchitis was in November 2016. Of note she was also found to be hypoglycemic in the emergency room with a blood sugar of 61, which was treated per hypoglycemia protocol. Patient is on a combination of glimepiride, metformin, NovoLog flex pen and Tresiba insulin at home. Her capillary blood sugar was rechecked after crackers and juice and is now at 74 mg/dL. Patient is awake alert, in no acute distress. On examination her lungs sounds scattered end expiratory wheezes throughout the lung castro with absent lung sounds over left lower lobe. No significant sputum production, no rhonchi. Chest x-ray showed cardiomegaly with prominent central vascularity and prominent interstitium. Left lower lobe density could be related to her history of left lower lung lobectomy. Patient has no leukocytosis, no signs of chest congestion or fever. No chills or night sweats. ProBNP 2680, patient is on Lasix 40 mg every 8 hours per attending. Patient has a history of obstructive sleep apnea for which she wears CPAP device at home but she is unsure of her home settings. Family will be asked to bring the home CPAP unit here. On 07/23/2017 patient is seen in follow-up. She is sleeping sitting up on her bedside table. She denied fever or chills, she denied coughing or any sputum production. Lung sounds are diminished with end expiratory wheezes on forced exhale maneuver. She is wearing 5 L oxygen per nasal cannula with O2 saturations around 90%. Chest x-ray from 07/23/2017 has been reviewed. Showed increased pulmonary vascularity, cardiomegaly, and retrocardiac density. She continues on Cardizem drip at 5 mg per hour, she remains in A. fib with a better controlled rate, around 89 BPM today. Continues on heparin drip for anticoagulation. IV Lasix with mild diuresis, she has a -573 mL balance overnight over the last 24 hours. She continues on IV steroids and on antibiotics in the form of Zithromax and Rocephin. She denies any chest pain. He states her breathing is slightly better today. Her bilateral lower leg edema show slight improvement. On 07/24/2017 the patient is being seen for a follow-up. The patient is still being treated for acute CHF, atrial fibrillation an acute COPD exacerbation. Note that around 3:57 AM in the morning the patient had an event where she woke up confused and disoriented. Code stroke was called and the patient was taken for a CAT scan that showed no acute abnormalities in the head and there was no evidence of any acute or recent territorial infarct. CT angios the brain was also done that showed no vascular abnormalities of occlusion. This lasted only for 15 minutes and the patient recovered. During this time the patient did not have any hypotension, cardiac arrhythmia or hypoglycemia. Note that the patient has obstructive sleep apnea and she has not been using his CPAP machine during her current hospital stay. For now, the patient is still in atrial fibrillation.. Have cardiac rhythm is atrial fibrillation. The patient is still on Lasix drip for diuresis. She is producing adequate amount of urine output. Her COPD exacerbation is also being treated with a combination of DuoNeb nebulized treatments around the clock and IV Solu-Medrol. She is also on examination Rocephin and Zithromax. She is post left lower lobe resection for a previous history of non-small cell lung cancer. She is obese. She still has extensive edema in lower eczematous bilaterally. On 07/25/2017 the patient is being seen for a follow-up. The Lasix drip has been drop down to 5 mg an hour. Still producing adequate amount of urine output. Still on a combination of Rocephin and Zithromax. Chest x-ray from today shows volume loss in the left lower lobe related to a previous left lower lobe resection. No acute abnormalities or airspace disease. Still on DuoNeb nebulized treatments around the clock. Still on IV Solu Medrol 40 mg every 12 hours. No loss in consciousness. No altered mental status. The patient is on long-term anticoagulation with Eliquis On 07/26/2017, patient is doing better, remains on Lasix drip at 5 mg per hour. Adequate urine output is noted, remains on antibiotics including Rocephin and Zithromax for presumptive left lung pneumonia. Patient has mostly left lower lobe atelectasis. And she had a previous lobectomy. Remains on bronchodilators for underlying COPD, and remains on steroids. Overall the patient is doing much better and breathing easier. Continues to have significant swelling in lower extremities in spite of a Lasix drip. CBC was relatively normal basic metabolic profile was normal bicarb is 39 BUN is 57 creatinine is 1.1. Patient was reevaluated today on 07/27/2017, seems to be doing well, relatively asymptomatic, patient is in A. fib with a rate of 100-120, MRI was nondiagnostic. Clinically the patient is feeling better, no cough no wheezing, no fever, no chills, no hemoptysis. Objective - Vital Signs Vital signs: Vital Signs Temp 97.4 F L 07/27/17 08:00 Pulse 84 07/27/17 12:05 Resp 18 07/27/17 08:00 BP 135/75 07/27/17 08:00 Pulse Ox 91 L 07/27/17 08:00 Intake & Output 07/26/17 07/27/17 07/27/17 18:59 06:59 18:59 Intake Total 828.140 37.910 493.130 Output Total 4200 Balance 828.140 -4162.090 493.130 Weight 101.3 kg Intake: Intake, IV Titration 32.140 37.910 13.130 Amount Insulin Regular 100 unit 32.140 37.910 13.130 In Sodium Chloride 0.9% 100 ml @ Titrate IV .Q0M [facility] Rx#:[id number] Oral 796 480 Output: Urine 4200 Other: Voiding Method Bedside Commode Bedside Commode Bedside Commode # Voids 1 1 # Bowel Movements 0 - Exam Constitutional General appearance: Revealed a 71-year-old female in no form of respiratory distress. Eyes: PERRLA, dentition normal ENT: NA/AT, normal oropharynx - Neck Neck: normal ROM Carotids: bilateral: upstroke normal Thyroid: bilateral: normal size - Respiratory Respiratory: bilateral: diminished (Left lower lobe), dullness (Left lower lobe) , no crackles, no rhonchi, no wheezes. - Cardiovascular Rhythm: irregularly irregular, secondary to atrial fibrillation and the patient has 2+ pitting edema in the lower extremities bilaterally. Heart sounds: normal: S1, S2 ankle Peripheral Edema: bilateral: 1+ foot Peripheral Edema: bilateral: 1+ dorsalis pedis Peripheral Pulses: bilateral: Normal radial pulse Peripheral Pulses: bilateral: Normal - Gastrointestinal General gastrointestinal: Soft, nontender, no megaly, no rebound, no guarding, positive bowel sounds. - Neurologic Neurologic: No gross focal neurologic deficit. - Musculoskeletal Musculoskeletal: strength equal bilaterally - Psychiatric Psychiatric: A&O x's 3, normal mental status exam, normal affect, and normal mood. - Labs CBC & Chem 7: 07/27/17 05:52 07/27/17 05:52 Labs: Abnormal Lab Results - Last 24 Hours (Table) 07/26/17 07/26/17 07/26/17 Range/Units 12:53 14:59 16:54 WBC (3.8-10.6) k/uL Hct (34.0-46.0) % Neutrophils # (1.3-7.7) k/uL Lymphocytes # (1.0-4.8) k/uL Chloride (98-107) mmol/L Carbon Dioxide (22-30) mmol/L BUN (7-17) mg/dL Glucose (74-99) mg/dL POC Glucose (mg/dL) 170 H 154 H 166 H (75-99) mg/dL 07/26/17 07/26/17 07/26/17 Range/Units 19:17 20:49 23:17 WBC (3.8-10.6) k/uL Hct (34.0-46.0) % Neutrophils # (1.3-7.7) k/uL Lymphocytes # (1.0-4.8) k/uL Chloride (98-107) mmol/L Carbon Dioxide (22-30) mmol/L BUN (7-17) mg/dL Glucose (74-99) mg/dL POC Glucose (mg/dL) 207 H 154 H 144 H (75-99) mg/dL 07/27/17 07/27/17 07/27/17 Range/Units 00:59 03:05 05:12 WBC (3.8-10.6) k/uL Hct (34.0-46.0) % Neutrophils # (1.3-7.7) k/uL Lymphocytes # (1.0-4.8) k/uL Chloride (98-107) mmol/L Carbon Dioxide (22-30) mmol/L BUN (7-17) mg/dL Glucose (74-99) mg/dL POC Glucose (mg/dL) 201 H 192 H 165 H (75-99) mg/dL 07/27/17 07/27/17 07/27/17 Range/Units 05:52 05:52 07:03 WBC 11.5 H (3.8-10.6) k/uL Hct 46.2 H (34.0-46.0) % Neutrophils # 9.8 H (1.3-7.7) k/uL Lymphocytes # 0.9 L (1.0-4.8) k/uL Chloride 86 L (98-107) mmol/L Carbon Dioxide 40 H* (22-30) mmol/L BUN 51 H (7-17) mg/dL Glucose 199 H (74-99) mg/dL POC Glucose (mg/dL) 166 H (75-99) mg/dL 07/27/17 07/27/17 Range/Units 10:03 11:52 WBC (3.8-10.6) k/uL Hct (34.0-46.0) % Neutrophils # (1.3-7.7) k/uL Lymphocytes # (1.0-4.8) k/uL Chloride (98-107) mmol/L Carbon Dioxide (22-30) mmol/L BUN (7-17) mg/dL Glucose (74-99) mg/dL POC Glucose (mg/dL) 138 H 167 H (75-99) mg/dL Microbiology - Last 24 Hours (Table) 07/22/17 12:14 Blood Culture - Preliminary Blood No Growth after 96 hours Assessment and Plan Plan: #1. Acute COPD exacerbation with an element of tracheobronchitis, improving as the patient is being treated with a combination of bronchodilators, steroids and antibiotics. #2. Possible Left lower lobe infiltrate suggestive of pneumonia, atelectasis versus effusion in the patient with a history of left lower lung lobectomy for lung cancer. Could represent a chronic finding. Small pleural effusion on the left was difficult to exclude. #3. Acute on chronic hypoxic respiratory failure secondary to COPD exacerbation and an element of congestive heart failure, proBNP is elevated at 2680 pG/mL and increased peripheral edema. 2-D echo results show EF between 55 and 60% with moderate to severe pulmonary hypertension with right ventricular systolic pressure of 57 mmHg. #4. History of lung cancer with left lobectomy and chemotherapy #5. History of coronary artery disease and stent placement, negative troponins 3 #6. Remote nicotine dependence, in remission #7. Underlying history of diabetes mellitus, with hypoglycemia, further episodes of hypoglycemia overnight #8. History of hypertension #9. Gastroesophageal reflux disease #10. Memory impairment #11 CHF exacerbation with increased lower extremity edema and the patient is currently on Lasix drip at 10 mg an hour #12 obstructive sleep apnea #13 episode of confusion which recovered without any residual neurologic deficits Recommendation: Continue present treatment plan, continue bronchodilators and antibiotics, continue Lasix consider discharge planning in the next 24-48 hours. MRI of the brain was nondiagnostic. Time with Patient: Less than 30
--- NOTE | 2017-07-27 13:59 | P.PN ---
Subjective Progress Note Date: 07/27/17 Principal diagnosis: Shortness of breath This is a pleasant 71-year-old female with history of COPD, lung CA with prior left lower lobectomy, status post chemotherapy and radiation, sleep apnea, hypertension, diabetes, GERD, who presented to the hospital with symptoms of progressively worsening shortness of breath. Positive PND and orthopnea. Patient also has significant amount of peripheral edema which she states that she has had for several months. Prior history of smoking. On presentation here EKG showed atrial fibrillation with a rapid ventricular response, was initiated on IV Cardizem drip. According to the patient, she has never been told in the past to have atrial fibrillation or congestive cardiac failure. She does not see a box car checker in the office. Chest x-ray on admission revealed cardiomegaly and possible pulmonary venous hypertension as well as interstitial edema. Possible left lower lobe atelectasis versus pneumonia. Echocardiogram with Doppler study was performed which revealed a small pericardial effusion moderate concentric LVH, ejection fraction 55-60%. Moderate to severe pulmonary hypertension. Repeat chest x-ray this morning shows persistence in interstitial edema, possible pneumonia, small effusion. Blood pressure on arrival 172/80, heart rate 120, 91% on 4 L of oxygen with a temperature of 99.1. Today she is afebrile, blood pressure 126/50, heart rate 90, 92% on 5 L of oxygen. White blood cell count 5.7, hemoglobin 12.3, platelet count 193. Sodium 136, potassium 4.8, BUN 28, creatinine 0.7. Troponin 0.019, 0.030, 0.017. BNP level 2680. was initiated on IV Lasix in the emergency room, she is on 40 mg IV every 8 hour. Patient is diuresing from the IV Lasix, small amounts. Patient does state this morning that her breathing is somewhat improved, however continues to feel significantly short of breath, continues to have significant bilateral peripheral edema and abdominal swelling. 07/24/2017 Patient was initiated on IV Lasix drip diuresed well through the night last night, weight is down 2 kg today. We also initiated the patient on Eliquis 5 mg one tablet by mouth twice a day for anticoagulation, she is covered for this medication. 07/25/2017 10 seen and examined this morning, continues to diurese well, patient states she feels better better every day, continues to have significant edema. Weight is down 2 kg today, creatinine 1.3, blood pressure 40/90, heart rate in the 90s. We will continue current medications and increase her metoprolol tartrate 50 daily. 07/27/2017 Patient seen and examined this morning, continues to diurese well. Feeling much better overall. We will continue current dose of IV Lasix drip. Check lytes BUN and creatinine in the morning. Objective - Vital Signs Vital signs: Vital Signs Temp 97.1 F L 07/27/17 12:00 Pulse 84 07/27/17 12:05 Resp 18 07/27/17 12:00 BP 136/69 07/27/17 12:00 Pulse Ox 93 L 07/27/17 12:00 Intake & Output 07/26/17 07/27/17 07/27/17 18:59 06:59 18:59 Intake Total 828.140 37.910 733.130 Output Total 4200 Balance 828.140 -4162.090 733.130 Weight 101.3 kg Intake: Intake, IV Titration 32.140 37.910 13.130 Amount Insulin Regular 100 unit 32.140 37.910 13.130 In Sodium Chloride 0.9% 100 ml @ Titrate IV .Q0M BRITTANI Rx#:[id number] Oral 796 720 Output: Urine 4200 Other: Voiding Method Bedside Commode Bedside Commode Bedside Commode # Voids 1 1 # Bowel Movements 0 - Exam PHYSICAL EXAMINATION: HEENT: Head is atraumatic, normocephalic. Pupils equal, round. Neck is supple. There is elevated jugular venous pressure. HEART EXAMINATION: S1 and S2 irregularly irregular CHEST EXAMINATION: And's reveal scattered coarse rhonchi with rales to bilateral bases and diminished air entry to the bases. ABDOMEN: Soft,, firm, distended. Bowel sounds are heard. No organomegaly noted. EXTREMITIES: 2+ peripheral pulses with 2+ evidence of peripheral edema and no calf tenderness noted. NEUROLOGIC patient is awake, alert and oriented -3. - Labs CBC & Chem 7: 07/27/17 05:52 07/27/17 05:52 Labs: Abnormal Lab Results - Last 24 Hours (Table) 07/26/17 07/26/17 07/26/17 Range/Units 14:59 16:54 19:17 WBC (3.8-10.6) k/uL Hct (34.0-46.0) % Neutrophils # (1.3-7.7) k/uL Lymphocytes # (1.0-4.8) k/uL Chloride (98-107) mmol/L Carbon Dioxide (22-30) mmol/L BUN (7-17) mg/dL Glucose (74-99) mg/dL POC Glucose (mg/dL) 154 H 166 H 207 H (75-99) mg/dL 07/26/17 07/26/17 07/27/17 Range/Units 20:49 23:17 00:59 WBC (3.8-10.6) k/uL Hct (34.0-46.0) % Neutrophils # (1.3-7.7) k/uL Lymphocytes # (1.0-4.8) k/uL Chloride (98-107) mmol/L Carbon Dioxide (22-30) mmol/L BUN (7-17) mg/dL Glucose (74-99) mg/dL POC Glucose (mg/dL) 154 H 144 H 201 H (75-99) mg/dL 07/27/17 07/27/17 07/27/17 Range/Units 03:05 05:12 05:52 WBC 11.5 H (3.8-10.6) k/uL Hct 46.2 H (34.0-46.0) % Neutrophils # 9.8 H (1.3-7.7) k/uL Lymphocytes # 0.9 L (1.0-4.8) k/uL Chloride (98-107) mmol/L Carbon Dioxide (22-30) mmol/L BUN (7-17) mg/dL Glucose (74-99) mg/dL POC Glucose (mg/dL) 192 H 165 H (75-99) mg/dL 07/27/17 07/27/17 07/27/17 Range/Units 05:52 07:03 10:03 WBC (3.8-10.6) k/uL Hct (34.0-46.0) % Neutrophils # (1.3-7.7) k/uL Lymphocytes # (1.0-4.8) k/uL Chloride 86 L (98-107) mmol/L Carbon Dioxide 40 H* (22-30) mmol/L BUN 51 H (7-17) mg/dL Glucose 199 H (74-99) mg/dL POC Glucose (mg/dL) 166 H 138 H (75-99) mg/dL 07/27/17 Range/Units 11:52 WBC (3.8-10.6) k/uL Hct (34.0-46.0) % Neutrophils # (1.3-7.7) k/uL Lymphocytes # (1.0-4.8) k/uL Chloride (98-107) mmol/L Carbon Dioxide (22-30) mmol/L BUN (7-17) mg/dL Glucose (74-99) mg/dL POC Glucose (mg/dL) 167 H (75-99) mg/dL Microbiology - Last 24 Hours (Table) 07/22/17 12:14 Blood Culture - Preliminary Blood No Growth after 96 hours Assessment and Plan Plan: Assessment and plan #1 diastolic congestive heart failure acute on chronic #2 atrial fibrillation with rapid ventricular response, appears to be of new onset. #3 exacerbation of COPD #4 history of lung cancer status post left lower lobectomy and chemotherapy with radiation #5 diabetes #6 hypertension #7 hyperlipidemia #8 sleep apnea Plan From cardiology's perspective, we'll continue IV Lasix drip, continue to monitor intake and output along with daily weights. Increase beta kalyan to 50 daily. Chest x-ray shows improvement in heart failure. DNP note has been reviewed, I agree with a documented findings and plan of care. Patient was seen and examined.
[2017-07-27 14:16] LABS: Glucose,Whole Blood 304 mg/dL (75-99)
[2017-07-27] MEDS: acetaZOLAMIDE 250 MG TAB PO SCH (16:18)
[2017-07-27] MEDS: FUROSEMIDE 250 MG in SODIUM CHLORIDE 0.9% 225 ML IVP SCH ×2 (16:20→19:48)
[2017-07-27 16:31] LABS: Glucose,Whole Blood 243 mg/dL (75-99)
[2017-07-27 18:07] LABS: Glucose,Whole Blood 221 mg/dL (75-99)
[2017-07-27 19:51] LABS: Glucose,Whole Blood 146 mg/dL (75-99)
[2017-07-27] MEDS: ATORVASTATIN 40 MG TAB PO SCH (20:00)
[2017-07-27] MEDS: FAMOTIDINE 20 MG TAB PO SCH (20:00)
[2017-07-27 21:54] LABS: Glucose,Whole Blood 140 mg/dL (75-99)
[2017-07-27 23:55] LABS: Glucose,Whole Blood 199 mg/dL (75-99)
[2017-07-28 02:08] LABS: Glucose,Whole Blood 208 mg/dL (75-99)
[2017-07-28] MEDS: INSULIN REGULAR 100 UNIT in SODIUM CHLORIDE 0.9% 100 ML IV SCH ×2 (02:17→15:14)
[2017-07-28 04:44] LABS: Glucose,Whole Blood 180 mg/dL (75-99)
[2017-07-28 05:59] LABS: Glucose,Whole Blood 154 mg/dL (75-99)
[2017-07-28 06:23] LABS: Basophils % (A) 0 %; CH 26.1; CHCM 29.6; Eosinophils % (A) 0 %; HCT 48.1 % (34.0-46.0); HDW 2.99; HGB 14.3 gm/dL (11.4-16.0); Hypochromasia Marked; Luc # (Auto) 0.17; Luc % (Auto) 1; Lymphocytes # (A) 1.2 k/uL (1.0-4.8); Lymphocytes % (A) 9 %; MCH 26.4 pg (25.0-35.0); MCHC 29.8 g/dL (31.0-37.0); MCV 88.4 fL (80.0-100.0); Mean Platelet Volume 6.8; Monocytes # (A) 0.7 k/uL (0-1.0); Monocytes % (A) 5 %; Neutrophils # (A) 10.2 k/uL (1.3-7.7); Neutrophils % (A) 84 %; RBC 5.43 m/uL (3.80-5.40); WBC 12.2 k/uL (3.8-10.6); WBC (Perox) 11.74
[2017-07-28] MEDS: PANTOPRAZOLE 40 MG TABLET PO SCH ×2 (06:23→17:14)
[2017-07-28 06:39] LABS: Potassium 4.1 mmol/L (3.5-5.1)
[2017-07-28] MEDS: INSULIN LISPRO (humaLOG) 300 UNIT/3 ML VIAL SQ SCH ×3 (07:05→17:14)
[2017-07-28] MEDS: IPRATROPIUM-ALBUTEROL 3 ML NEB INHALATION SCH ×4 (07:59→19:41)
[2017-07-28] MEDS: SYMBICORT 80-4.5 MCG INHALER INHALATION SCH ×2 (07:59→19:41)
[2017-07-28 08:23] LABS: Glucose,Whole Blood 177 mg/dL (75-99)
[2017-07-28] MEDS: AZITHROMYCIN 500 MG TAB PO SCH (08:25)
[2017-07-28] MEDS: LORATADINE 10 MG TAB PO SCH (08:25)
[2017-07-28] MEDS: APIXABAN 5 MG TAB PO SCH ×2 (08:25→21:24)
[2017-07-28] MEDS: DOCUSATE 100 MG CAP PO SCH ×2 (08:25→21:24)
[2017-07-28] MEDS: methylPREDNISolone SOD SUCCI 40 MG/ML 1 ML VIAL IV SCH ×2 (08:25→21:24)
[2017-07-28] MEDS: GABAPENTIN 400 MG CAP PO SCH ×3 (08:25→21:25)
[2017-07-28] MEDS: CHOLECALCIFEROL 1,000 UNIT TAB PO SCH (08:26)
[2017-07-28] MEDS: acetaZOLAMIDE 250 MG TAB PO SCH (08:26)
[2017-07-28] MEDS: SPIRONOLACTONE 25 MG TAB PO SCH (08:26)
[2017-07-28] MEDS: LOSARTAN 50 MG TAB PO SCH (08:26)
[2017-07-28] MEDS: METOPROLOL SUCCINATE (ER) 50 MG TAB.ER.24H PO SCH (08:26)
[2017-07-28] MEDS: CYANOCOBALAMIN 500 MCG TAB PO SCH (08:26)
[2017-07-28 10:29] LABS: Glucose,Whole Blood 177 mg/dL (75-99)
--- NOTE | 2017-07-28 11:12 | P.PN ---
Subjective Progress Note Date: 07/28/17 Principal diagnosis: Acute exacerbation of chronic obstructive pulmonary disease, congestive heart failure, left lung atelectasis and previous lobectomy of the left lower lobe. This is a 71-year-old female patient with past medical history of COPD, lung cancer status post left lower lobectomy with chemoradiation, diabetes mellitus, hypertension, GERD who presented to the emergency room from her PCPs office Dr. Joan Stringer with complaints of increased shortness of breath since yesterday and a mild productive cough with small amount of thick yellow sputum. She denied fever or chills, chest congestion, hemoptysis, or wheezing. She also noted increased swelling in bilateral arms and legs, which is new to her. She denied chest pain or orthopnea. Patient is a remote smoker, with a 25-pack- year history, quit many years ago. Her symptoms also included generalized weakness, which is significantly worse today. When she presented to her PCPs office, she was told she had pneumonia. On presentation to the emergency room patient was found to be in A. fib with RVR with a rate of 120 BPM and hypoxic with O2 sat of 86% on 2 L per nasal cannula. She does wear home O2 at bedtime at 2 L. She was initiated on Cardizem drip for rate control and heparin drip per protocol. She sees Dr. Ledezma for management of her chronic COPD, and she is on Advair 250/50 and albuterol nebulized treatments as well as her rescue inhaler at home. Her last admission for COPD exacerbation and tracheobronchitis was in November 2016. Of note she was also found to be hypoglycemic in the emergency room with a blood sugar of 61, which was treated per hypoglycemia protocol. Patient is on a combination of glimepiride, metformin, NovoLog flex pen and Tresiba insulin at home. Her capillary blood sugar was rechecked after crackers and juice and is now at 74 mg/dL. Patient is awake alert, in no acute distress. On examination her lungs sounds scattered end expiratory wheezes throughout the lung castro with absent lung sounds over left lower lobe. No significant sputum production, no rhonchi. Chest x-ray showed cardiomegaly with prominent central vascularity and prominent interstitium. Left lower lobe density could be related to her history of left lower lung lobectomy. Patient has no leukocytosis, no signs of chest congestion or fever. No chills or night sweats. ProBNP 2680, patient is on Lasix 40 mg every 8 hours per attending. Patient has a history of obstructive sleep apnea for which she wears CPAP device at home but she is unsure of her home settings. Family will be asked to bring the home CPAP unit here. On 07/23/2017 patient is seen in follow-up. She is sleeping sitting up on her bedside table. She denied fever or chills, she denied coughing or any sputum production. Lung sounds are diminished with end expiratory wheezes on forced exhale maneuver. She is wearing 5 L oxygen per nasal cannula with O2 saturations around 90%. Chest x-ray from 07/23/2017 has been reviewed. Showed increased pulmonary vascularity, cardiomegaly, and retrocardiac density. She continues on Cardizem drip at 5 mg per hour, she remains in A. fib with a better controlled rate, around 89 BPM today. Continues on heparin drip for anticoagulation. IV Lasix with mild diuresis, she has a -573 mL balance overnight over the last 24 hours. She continues on IV steroids and on antibiotics in the form of Zithromax and Rocephin. She denies any chest pain. He states her breathing is slightly better today. Her bilateral lower leg edema show slight improvement. On 07/24/2017 the patient is being seen for a follow-up. The patient is still being treated for acute CHF, atrial fibrillation an acute COPD exacerbation. Note that around 3:57 AM in the morning the patient had an event where she woke up confused and disoriented. Code stroke was called and the patient was taken for a CAT scan that showed no acute abnormalities in the head and there was no evidence of any acute or recent territorial infarct. CT angios the brain was also done that showed no vascular abnormalities of occlusion. This lasted only for 15 minutes and the patient recovered. During this time the patient did not have any hypotension, cardiac arrhythmia or hypoglycemia. Note that the patient has obstructive sleep apnea and she has not been using his CPAP machine during her current hospital stay. For now, the patient is still in atrial fibrillation.. Have cardiac rhythm is atrial fibrillation. The patient is still on Lasix drip for diuresis. She is producing adequate amount of urine output. Her COPD exacerbation is also being treated with a combination of DuoNeb nebulized treatments around the clock and IV Solu-Medrol. She is also on examination Rocephin and Zithromax. She is post left lower lobe resection for a previous history of non-small cell lung cancer. She is obese. She still has extensive edema in lower eczematous bilaterally. On 07/25/2017 the patient is being seen for a follow-up. The Lasix drip has been drop down to 5 mg an hour. Still producing adequate amount of urine output. Still on a combination of Rocephin and Zithromax. Chest x-ray from today shows volume loss in the left lower lobe related to a previous left lower lobe resection. No acute abnormalities or airspace disease. Still on DuoNeb nebulized treatments around the clock. Still on IV Solu Medrol 40 mg every 12 hours. No loss in consciousness. No altered mental status. The patient is on long-term anticoagulation with Eliquis On 07/26/2017, patient is doing better, remains on Lasix drip at 5 mg per hour. Adequate urine output is noted, remains on antibiotics including Rocephin and Zithromax for presumptive left lung pneumonia. Patient has mostly left lower lobe atelectasis. And she had a previous lobectomy. Remains on bronchodilators for underlying COPD, and remains on steroids. Overall the patient is doing much better and breathing easier. Continues to have significant swelling in lower extremities in spite of a Lasix drip. CBC was relatively normal basic metabolic profile was normal bicarb is 39 BUN is 57 creatinine is 1.1. Patient was reevaluated today on 07/27/2017, seems to be doing well, relatively asymptomatic, patient is in A. fib with a rate of 100-120, MRI was nondiagnostic. Clinically the patient is feeling better, no cough no wheezing, no fever, no chills, no hemoptysis. The patient was seen again today 07/28/2017 in follow-up on the selective care unit. She is awake and alert in no acute distress. She is sitting up at the bedside. She denies any worsening shortness of breath, cough or congestion. She is maintaining O2 saturations in the low 90s on 4 L/m per nasal cannula. Currently afebrile. Blood cultures reveal no growth. She is still maintained on a Lasix drip at 5 mg per hour. She is currently in a -3 L. She is also on a insulin drip at 3.5 units per hour. Blood glucose 177. Objective - Vital Signs Vital signs: Vital Signs Temp 96.9 F L 07/28/17 08:26 Pulse 106 H 07/28/17 08:26 Resp 18 07/28/17 08:26 BP 143/94 07/28/17 08:26 Pulse Ox 90 L 07/28/17 08:26 Intake & Output 07/27/17 07/28/17 07/28/17 18:59 06:59 18:59 Intake Total 1209.793 73.219 250.592 Output Total 3100 Balance 1209.793 -3026.781 250.592 Weight 100.1 kg Intake: Intake, IV Titration 249.793 73.219 10.592 Amount Furosemide 250 mg In 207.25 17.333 Sodium Chloride 0.9% 225 ml @ 5 MG/HR 5 mls/hr IVP .Q24H [facility] Rx#:[id number] Insulin Regular 100 unit 42.543 55.886 10.592 In Sodium Chloride 0.9% 100 ml @ Titrate IV .Q0M [facility] Rx#:[id number] Oral 960 240 Output: Urine 3100 Other: Voiding Method Bedside Commode Bedside Commode Bedside Commode # Voids 2 # Bowel Movements 1 - Exam GENERAL EXAM: Alert, active, comfortable in no apparent distress. HEAD: Normocephalic. EYES: Normal reaction of pupils, equal size. NOSE: Clear with pink turbinates. THROAT: No erythema or exudates. NECK: No masses, no JVD. CHEST: No chest wall deformity. LUNGS: Equal air entry with crackles in the bilateral posterior bases more so on the left. CVS: S1 and S2 normal with no audible murmur, irregular rhythm. ABDOMEN: No hepatosplenomegaly, normal bowel sounds, no guarding or rigidity. SPINE: No scoliosis or deformity SKIN: No rashes CENTRAL NERVOUS SYSTEM: No focal deficits, tone is normal in all 4 extremities. EXTREMITIES: There is 1+ peripheral edema. No clubbing, no cyanosis. Peripheral pulses are intact. - Labs CBC & Chem 7: 07/28/17 05:37 07/28/17 05:37 Labs: Abnormal Lab Results - Last 24 Hours (Table) 07/27/17 07/27/1717 Range/Units 11:52 14:12 16:11 WBC (3.8-10.6) k/uL RBC (3.80-5.40) m/uL Hct (34.0-46.0) % MCHC (31.0-37.0) g/dL Neutrophils # (1.3-7.7) k/uL Sodium (137-145) mmol/L Chloride (98-107) mmol/L Carbon Dioxide (22-30) mmol/L BUN (7-17) mg/dL Creatinine (0.52-1.04) mg/dL Glucose (74-99) mg/dL POC Glucose (mg/dL) 167 H 304 H 243 H (75-99) mg/dL 07/27/17 07/27/17 07/27/17 Range/Units 17:56 19:49 21:52 WBC (3.8-10.6) k/uL RBC (3.80-5.40) m/uL Hct (34.0-46.0) % MCHC (31.0-37.0) g/dL Neutrophils # (1.3-7.7) k/uL Sodium (137-145) mmol/L Chloride (98-107) mmol/L Carbon Dioxide (22-30) mmol/L BUN (7-17) mg/dL Creatinine (0.52-1.04) mg/dL Glucose (74-99) mg/dL POC Glucose (mg/dL) 221 H 146 H 140 H (75-99) mg/dL 07/27/17 07/28/17 07/28/17 Range/Units 23:54 02:06 04:07 WBC (3.8-10.6) k/uL RBC (3.80-5.40) m/uL Hct (34.0-46.0) % MCHC (31.0-37.0) g/dL Neutrophils # (1.3-7.7) k/uL Sodium (137-145) mmol/L Chloride (98-107) mmol/L Carbon Dioxide (22-30) mmol/L BUN (7-17) mg/dL Creatinine (0.52-1.04) mg/dL Glucose (74-99) mg/dL POC Glucose (mg/dL) 199 H 208 H 180 H (75-99) mg/dL 07/28/17 07/28/17 07/28/17 Range/Units 05:37 05:37 05:56 WBC 12.2 H (3.8-10.6) k/uL RBC 5.43 H (3.80-5.40) m/uL Hct 48.1 H (34.0-46.0) % MCHC 29.8 L (31.0-37.0) g/dL Neutrophils # 10.2 H (1.3-7.7) k/uL Sodium 134 L (137-145) mmol/L Chloride 86 L (98-107) mmol/L Carbon Dioxide 39 H (22-30) mmol/L BUN 56 H (7-17) mg/dL Creatinine 1.10 H (0.52-1.04) mg/dL Glucose 167 H (74-99) mg/dL POC Glucose (mg/dL) 154 H (75-99) mg/dL 07/28/17 07/28/17 Range/Units 08:22 10:14 WBC (3.8-10.6) k/uL RBC (3.80-5.40) m/uL Hct (34.0-46.0) % MCHC (31.0-37.0) g/dL Neutrophils # (1.3-7.7) k/uL Sodium (137-145) mmol/L Chloride (98-107) mmol/L Carbon Dioxide (22-30) mmol/L BUN (7-17) mg/dL Creatinine (0.52-1.04) mg/dL Glucose (74-99) mg/dL POC Glucose (mg/dL) 177 H 177 H (75-99) mg/dL Microbiology - Last 24 Hours (Table) 07/22/17 12:14 Blood Culture - Preliminary Blood No Growth after 120 hours Assessment and Plan Assessment: #1. Acute COPD exacerbation with an element of tracheobronchitis, improving as the patient is being treated with a combination of bronchodilators, steroids and antibiotics. #2. Possible Left lower lobe infiltrate suggestive of pneumonia, atelectasis versus effusion in the patient with a history of left lower lung lobectomy for lung cancer. Could represent a chronic finding. Small pleural effusion on the left was difficult to exclude. #3. Acute on chronic hypoxic respiratory failure secondary to COPD exacerbation and an element of congestive heart failure, proBNP is elevated at 2680 pG/mL and increased peripheral edema. 2-D echo results show EF between 55 and 60% with moderate to severe pulmonary hypertension with right ventricular systolic pressure of 57 mmHg. #4. History of lung cancer with left lobectomy and chemotherapy #5. History of coronary artery disease and stent placement, negative troponins 3 #6. Remote nicotine dependence, in remission #7. Underlying history of diabetes mellitus, with hypoglycemia, further episodes of hypoglycemia overnight #8. History of hypertension #9. Gastroesophageal reflux disease #10. Atrial fibrillation, anticoagulated with apixaban. #11. CHF exacerbation with increased lower extremity edema and the patient is currently on Lasix drip at 10 mg an hour #12. Obstructive sleep apnea #13. Episode of confusion which recovered without any residual neurologic deficits Plan: The patient was seen and evaluated by Dr. Arguello. We'll continue with her current medications for now. Diuretics per cardiology. We'll repeat a chest x- ray. We will increase her activity as tolerated. We will continue to follow. I, the cosigning physician, have performed a history and physical examination on the patient. Lung sounds with bilateral crackle, more so on the left. Maintaining good O2 saturations in the 90s on 4L/min per nc.. I have discussed the assessment and plan of care with my nurse practitioner, Juany Nielsen. I attest the above documented note as dictated by her.
--- NOTE | 2017-07-28 11:36 | P.PN ---
Subjective Progress Note Date: 07/28/17 This is a 71-year-old female, patient of [facility]. She has a known past medical history of lung cancer with a previous left lower lobectomy and chemotherapy, diabetes mellitus, hypertension, coronary artery disease with previous cardiac stent, hyperlipidemia, COPD and bronchitis. Patient states over the last 2 days she's had worsening shortness of breath. She's also been having a mild cough which is productive at times. She has noted to have shortness of breath with walking a short distance. She denies any chest pain, nausea or vomiting, bowel movement changes or urinary symptoms. She denies any fevers chills or sweats. Patient was found to have atrial fibrillation with a rapid ventricular response on admission. Heart rate was 120. She was started on a Cardizem drip and IV heparin. Cardiology has been consulted. Patient was also started on IV Solu-Medrol for an acute COPD exacerbation. Also placed on antibiotics for questionable pneumonia versus bronchitis. She also had evidence of congestive heart failure BNP was elevated 2680. She has some bilateral lower extremity edema with a chest x-ray showing cardiomegaly and to correlate for possible pulmonary venous hypertension and interstitial edema. Patient did receive 1 dose of IV Lasix in the emergency room. Oxygen saturation on admission was at 86% and has gone up to 94% with 3 L. He has also been hypoglycemic with a blood sugar of 55. Patient reports that she has not taken her home medications state or eating anything today. This is likely contributing to patient's low blood sugar. Patient does not have a history of atrial fibrillation. Cardiology and pulmonary service have been consulted. 07/23/2017 patient has noted some improvement in her shortness of breath. However, during her morning shower she still had some shortness of breath. She' s currently on 5 L nasal cannula standing and 90%. Cardiology and pulmonary service are following. She is on IV steroids, IV Lasix and antibiotics. She denies any chest pain. Denies any nausea or vomiting. Reports having regular bowel movement. Denies any difficulty with urinating. 07/26/2017 patient started on a Lasix drip over the weekend. She also had some mental status changes and had undergone a computed tomography scan of the brain which was negative and a CTA was also negative. Patient was seen by neurology. They did order an MRI of the brain. There is no evidence of any metastatic disease to the brain. Patient is alert and responding to questions appropriately. She reports about 4 days since her last bowel movement. She denies any chest pain or shortness of breath denies any nausea or vomiting. Denies any burning with urination 07/27/2017 patient denies any chest pain or shortness breath. Denies any nausea or vomiting. Reports having bowel movements. Denies any burning with urination. Telemetry monitoring shows A. fib with a heart rate between 100-120 at times. 07/28/2017 patient is feeling better she is alert and oriented there is no chest pain or shortness of breath no fever or chills no nausea or vomiting no abdominal pain and no urinary symptoms, patient receiving updraft treatment at this time. She denies any complaints. Objective - Vital Signs Vital signs: Vital Signs Temp 96.9 F L 07/28/17 08:26 Pulse 100 07/28/17 11:23 Resp 18 07/28/17 08:26 BP 143/94 07/28/17 08:26 Pulse Ox 90 L 07/28/17 08:26 Intake & Output 07/27/17 07/28/17 07/28/17 18:59 06:59 18:59 Intake Total 1209.793 73.219 250.592 Output Total 3100 Balance 1209.793 -3026.781 250.592 Weight 100.1 kg Intake: Intake, IV Titration 249.793 73.219 10.592 Amount Furosemide 250 mg In 207.25 17.333 Sodium Chloride 0.9% 225 ml @ 5 MG/HR 5 mls/hr IVP .Q24H BRITTANI Rx#:[id number] Insulin Regular 100 unit 42.543 55.886 10.592 In Sodium Chloride 0.9% 100 ml @ Titrate IV .Q0M BRITTANI Rx#:[id number] Oral 960 240 Output: Urine 3100 Other: Voiding Method Bedside Commode Bedside Commode Bedside Commode # Voids 2 # Bowel Movements 1 - Exam In general patient is alert and oriented 3 in no apparent distress sitting at the edge of bed HEENT without any acute abnormality Neck is supple no JVD no goiter no lymphadenopathy Chest exam reveals a few scattered crackles no wheezing Cardiac exam reveals irregular heart sounds with heart rate 100 no gallops no murmurs Abdomen is soft nontender no organomegaly Extremity exam reveals no edema no cyanosis or clubbing - Labs CBC & Chem 7: 07/28/17 05:37 07/28/17 05:37 Labs: Abnormal Lab Results - Last 24 Hours (Table) 07/27/17 07/27/17 07/27/17 Range/Units 11:52 14:12 16:11 WBC (3.8-10.6) k/uL RBC (3.80-5.40) m/uL Hct (34.0-46.0) % MCHC (31.0-37.0) g/dL Neutrophils # (1.3-7.7) k/uL Sodium (137-145) mmol/L Chloride (98-107) mmol/L Carbon Dioxide (22-30) mmol/L BUN (7-17) mg/dL Creatinine (0.52-1.04) mg/dL Glucose (74-99) mg/dL POC Glucose (mg/dL) 167 H 304 H 243 H (75-99) mg/dL 07/27/17 07/27/17 07/27/17 Range/Units 17:56 19:49 21:52 WBC (3.8-10.6) k/uL RBC (3.80-5.40) m/uL Hct (34.0-46.0) % MCHC (31.0-37.0) g/dL Neutrophils # (1.3-7.7) k/uL Sodium (137-145) mmol/L Chloride (98-107) mmol/L Carbon Dioxide (22-30) mmol/L BUN (7-17) mg/dL Creatinine (0.52-1.04) mg/dL Glucose (74-99) mg/dL POC Glucose (mg/dL) 221 H 146 H 140 H (75-99) mg/dL 07/27/17 07/28/17 07/28/17 Range/Units 23:54 02:06 04:07 WBC (3.8-10.6) k/uL RBC (3.80-5.40) m/uL Hct (34.0-46.0) % MCHC (31.0-37.0) g/dL Neutrophils # (1.3-7.7) k/uL Sodium (137-145) mmol/L Chloride (98-107) mmol/L Carbon Dioxide (22-30) mmol/L BUN (7-17) mg/dL Creatinine (0.52-1.04) mg/dL Glucose (74-99) mg/dL POC Glucose (mg/dL) 199 H 208 H 180 H (75-99) mg/dL 07/28/17 07/28/17 07/28/17 Range/Units 05:37 05:37 05:56 WBC 12.2 H (3.8-10.6) k/uL RBC 5.43 H (3.80-5.40) m/uL Hct 48.1 H (34.0-46.0) % MCHC 29.8 L (31.0-37.0) g/dL Neutrophils # 10.2 H (1.3-7.7) k/uL Sodium 134 L (137-145) mmol/L Chloride 86 L (98-107) mmol/L Carbon Dioxide 39 H (22-30) mmol/L BUN 56 H (7-17) mg/dL Creatinine 1.10 H (0.52-1.04) mg/dL Glucose 167 H (74-99) mg/dL POC Glucose (mg/dL) 154 H (75-99) mg/dL 07/28/17 07/28/17 Range/Units 08:22 10:14 WBC (3.8-10.6) k/uL RBC (3.80-5.40) m/uL Hct (34.0-46.0) % MCHC (31.0-37.0) g/dL Neutrophils # (1.3-7.7) k/uL Sodium (137-145) mmol/L Chloride (98-107) mmol/L Carbon Dioxide (22-30) mmol/L BUN (7-17) mg/dL Creatinine (0.52-1.04) mg/dL Glucose (74-99) mg/dL POC Glucose (mg/dL) 177 H 177 H (75-99) mg/dL Microbiology - Last 24 Hours (Table) 07/22/17 12:14 Blood Culture - Preliminary Blood No Growth after 120 hours Assessment and Plan Assessment: 1. Acute and chronic hypoxic and hypercapnic respiratory failure: multifactorial likely related to COPD exacerbation, atrial fibrillation with rapid ventricular response, CHF exacerbation and bronchitis. CO2 was elevated at 40 yesterday she was given Diamox and CO2 is down to 39 today Will continue to monitor 2. Acute COPD exacerbation patient is been placed on IV Solu-Medrol with bronchodilators. We'll monitor service is following 3. Acute tracheobronchitis: Patient has been started on Rocephin and azithromycin. Pulmonary service following. They have reviewed this chest x- ray and likely left lower lobe changes are chronic. They were present on previous admission in November 2016 and 2009 4. Atrial fibrillation with rapid ventricular response and new onset: Eliquis 5 mg twice a day for anticoagulation and metoprolol for rate control. Cardiology did increase metoprolol to 50 mg daily. Cardiology following. They discontinue the aspirin and Motrin while patient is on Eliquis 5. Acute diastolic CHF exacerbation: started on Lasix drip over the weekend. Echo shows an EF of 55-60%. There is moderate to severe pulmonary hypertension. And a small pericardial effusion. We'll await further cardiology and pulmonary recommendations 6. History of lung cancer status post left lower lobectomy and chemotherapy 7. Diabetes mellitus type 2 with hypoglycemia: On insulin drip due to hyperglycemia from steroids 8. History of coronary artery disease with previous angioplasty and stent placement 9. Altered mental status changes: MRI of the brain so shows no metastatic disease. Neurology is following. Patient did have a code stroke called during the weekend. Computed tomography scan of the brain negative and CTA negative. Symptoms may be related to a metabolic encephalopathy from her acute infection or possibly steroid induced psychosis. States steroids were tapered down over the weekend. Patient appears back at baseline. 10. Constipation start Colace and give lactulose 11. Consult physical therapy to ambulate patient 12. GI prophylaxis Protonix and DVT prophylaxis Eliquis
[2017-07-28 12:14] LABS: Glucose,Whole Blood 108 mg/dL (75-99)
[2017-07-28 13:11] LABS: Glucose,Whole Blood 266 mg/dL (75-99)
--- NOTE | 2017-07-28 15:09 | XR ---
EXAMINATION TYPE: XR chest 2V DATE OF EXAM: 07/28/2017 COMPARISON: Prior chest x-ray 07/25/2017 HISTORY: Congestive heart failure follow-up TECHNIQUE: Frontal and lateral views of the chest are obtained. FINDINGS: The patient is rotated. There are overlying cardiac leads. No pneumothorax or pleural effu milla. Retrocardiac density persists. Some improvement in aeration suspected at the right lung base. T here are coronary artery calcifications, the aorta is dense. The cardiac silhouette size is stable an d enlarged. The osseous structures are intact. IMPRESSION: There is some improvement in aeration.
[2017-07-28 15:35] LABS: Glucose,Whole Blood 202 mg/dL (75-99)
--- NOTE | 2017-07-28 16:03 | P.PN ---
Subjective Progress Note Date: 07/28/17 Principal diagnosis: Shortness of breath This is a pleasant 71-year-old female with history of COPD, lung CA with prior left lower lobectomy, status post chemotherapy and radiation, sleep apnea, hypertension, diabetes, GERD, who presented to the hospital with symptoms of progressively worsening shortness of breath. Positive PND and orthopnea. Patient also has significant amount of peripheral edema which she states that she has had for several months. Prior history of smoking. On presentation here EKG showed atrial fibrillation with a rapid ventricular response, was initiated on IV Cardizem drip. According to the patient, she has never been told in the past to have atrial fibrillation or congestive cardiac failure. She does not see a accountant certified public in the office. Chest x-ray on admission revealed cardiomegaly and possible pulmonary venous hypertension as well as interstitial edema. Possible left lower lobe atelectasis versus pneumonia. Echocardiogram with Doppler study was performed which revealed a small pericardial effusion moderate concentric LVH, ejection fraction 55-60%. Moderate to severe pulmonary hypertension. Repeat chest x-ray this morning shows persistence in interstitial edema, possible pneumonia, small effusion. Blood pressure on arrival 172/80, heart rate 120, 91% on 4 L of oxygen with a temperature of 99.1. Today she is afebrile, blood pressure 126/50, heart rate 90, 92% on 5 L of oxygen. White blood cell count 5.7, hemoglobin 12.3, platelet count 193. Sodium 136, potassium 4.8, BUN 28, creatinine 0.7. Troponin 0.019, 0.030, 0.017. BNP level 2680. was initiated on IV Lasix in the emergency room, she is on 40 mg IV every 8 hour. Patient is diuresing from the IV Lasix, small amounts. Patient does state this morning that her breathing is somewhat improved, however continues to feel significantly short of breath, continues to have significant bilateral peripheral edema and abdominal swelling. 07/24/2017 Patient was initiated on IV Lasix drip diuresed well through the night last night, weight is down 2 kg today. We also initiated the patient on Eliquis 5 mg one tablet by mouth twice a day for anticoagulation, she is covered for this medication. 07/25/2017 10 seen and examined this morning, continues to diurese well, patient states she feels better better every day, continues to have significant edema. Weight is down 2 kg today, creatinine 1.3, blood pressure 40/90, heart rate in the 90s. We will continue current medications and increase her metoprolol tartrate 50 daily. 07/27/2017 Patient seen and examined this morning, continues to diurese well. Feeling much better overall. We will continue current dose of IV Lasix drip. Check lytes BUN and creatinine in the morning. 07/28/2017 She continues to be on Lasix drip at 5 mg per hour, continues to diurese well. Creatinine 1.1 Objective - Vital Signs Vital signs: Vital Signs Temp 97.1 F L 07/28/17 15:15 Pulse 100 07/28/17 15:58 Resp 18 07/28/17 15:15 BP 138/81 07/28/17 15:15 Pulse Ox 94 L 07/28/17 15:15 Intake & Output 07/27/17 07/28/17 07/28/17 18:59 06:59 18:59 Intake Total 1209.793 73.219 512.900 Output Total 3100 800 Balance 1209.793 -3026.781 -287.100 Weight 100.1 kg Intake: Intake, IV Titration 249.793 73.219 32.900 Amount Furosemide 250 mg In 207.25 17.333 Sodium Chloride 0.9% 225 ml @ 5 MG/HR 5 mls/hr IVP .Q24H [facility]ITTANI Rx#:[id number] Insulin Regular 100 unit 42.543 55.886 32.900 In Sodium Chloride 0.9% 100 ml @ Titrate IV .Q0M [facility]ITTANI Rx#:[id number] Oral 960 480 Output: Urine 3100 800 Other: Voiding Method Bedside Commode Bedside Commode Bedside Commode # Voids 2 # Bowel Movements 1 - Exam PHYSICAL EXAMINATION: HEENT: Head is atraumatic, normocephalic. Pupils equal, round. Neck is supple. There is elevated jugular venous pressure. HEART EXAMINATION: S1 and S2 irregularly irregular CHEST EXAMINATION: And's reveal scattered coarse rhonchi with rales to bilateral bases and diminished air entry to the bases. ABDOMEN: Soft,, firm, distended. Bowel sounds are heard. No organomegaly noted. EXTREMITIES: 2+ peripheral pulses with 1+ evidence of peripheral edema and no calf tenderness noted. NEUROLOGIC patient is awake, alert and oriented -3. - Labs CBC & Chem 7: 07/28/17 05:37 07/28/17 05:37 Labs: Abnormal Lab Results - Last 24 Hours (Table) 07/27/17 07/27/17 07/27/17 Range/Units 16:11 17:56 19:49 WBC (3.8-10.6) k/uL RBC (3.80-5.40) m/uL Hct (34.0-46.0) % MCHC (31.0-37.0) g/dL Neutrophils # (1.3-7.7) k/uL Sodium (137-145) mmol/L Chloride (98-107) mmol/L Carbon Dioxide (22-30) mmol/L BUN (7-17) mg/dL Creatinine (0.52-1.04) mg/dL Glucose (74-99) mg/dL POC Glucose (mg/dL) 243 H 221 H 146 H (75-99) mg/dL 07/27/17 07/27/17 07/28/17 Range/Units 21:52 23:54 02:06 WBC (3.8-10.6) k/uL RBC (3.80-5.40) m/uL Hct (34.0-46.0) % MCHC (31.0-37.0) g/dL Neutrophils # (1.3-7.7) k/uL Sodium (137-145) mmol/L Chloride (98-107) mmol/L Carbon Dioxide (22-30) mmol/L BUN (7-17) mg/dL Creatinine (0.52-1.04) mg/dL Glucose (74-99) mg/dL POC Glucose (mg/dL) 140 H 199 H 208 H (75-99) mg/dL 07/28/17 07/28/17 07/28/17 Range/Units 04:07 05:37 05:37 WBC 12.2 H (3.8-10.6) k/uL RBC 5.43 H (3.80-5.40) m/uL Hct 48.1 H (34.0-46.0) % MCHC 29.8 L (31.0-37.0) g/dL Neutrophils # 10.2 H (1.3-7.7) k/uL Sodium 134 L (137-145) mmol/L Chloride 86 L (98-107) mmol/L Carbon Dioxide 39 H (22-30) mmol/L BUN 56 H (7-17) mg/dL Creatinine 1.10 H (0.52-1.04) mg/dL Glucose 167 H (74-99) mg/dL POC Glucose (mg/dL) 180 H (75-99) mg/dL 07/28/17 07/28/17 07/28/17 Range/Units 05:56 08:22 10:14 WBC (3.8-10.6) k/uL RBC (3.80-5.40) m/uL Hct (34.0-46.0) % MCHC (31.0-37.0) g/dL Neutrophils # (1.3-7.7) k/uL Sodium (137-145) mmol/L Chloride (98-107) mmol/L Carbon Dioxide (22-30) mmol/L BUN (7-17) mg/dL Creatinine (0.52-1.04) mg/dL Glucose (74-99) mg/dL POC Glucose (mg/dL) 154 H 177 H 177 H (75-99) mg/dL 07/28/17 07/28/17 07/28/17 Range/Units 11:53 13:06 15:16 WBC (3.8-10.6) k/uL RBC (3.80-5.40) m/uL Hct (34.0-46.0) % MCHC (31.0-37.0) g/dL Neutrophils # (1.3-7.7) k/uL Sodium (137-145) mmol/L Chloride (98-107) mmol/L Carbon Dioxide (22-30) mmol/L BUN (7-17) mg/dL Creatinine (0.52-1.04) mg/dL Glucose (74-99) mg/dL POC Glucose (mg/dL) 108 H 266 H 202 H (75-99) mg/dL Microbiology - Last 24 Hours (Table) 07/22/17 12:14 Blood Culture - Final Blood No Growth after 144 hours Assessment and Plan Plan: Assessment and plan #1 diastolic congestive heart failure acute on chronic #2 atrial fibrillation with rapid ventricular response, appears to be of new onset. #3 exacerbation of COPD #4 history of lung cancer status post left lower lobectomy and chemotherapy with radiation #5 diabetes #6 hypertension #7 hyperlipidemia #8 sleep apnea Plan From cardiology's perspective, we'll continue IV Lasix drip, continue to monitor intake and output along with daily weights. Repeat chest x-ray tomorrow morning. DNP note has been reviewed, I agree with a documented findings and plan of care. Patient was seen and examined.
[2017-07-28 17:23] LABS: Glucose,Whole Blood 117 mg/dL (75-99)
[2017-07-28 18:26] LABS: Glucose,Whole Blood 162 mg/dL (75-99)
[2017-07-28 20:06] LABS: Glucose,Whole Blood 125 mg/dL (75-99)
[2017-07-28 20:59] LABS: Glucose,Whole Blood 113 mg/dL (75-99)
[2017-07-28] MEDS: FAMOTIDINE 20 MG TAB PO SCH (21:24)
[2017-07-28] MEDS: ATORVASTATIN 40 MG TAB PO SCH (21:24)
[2017-07-29 01:42] LABS: Glucose,Whole Blood 246 mg/dL (75-99)
[2017-07-29] MEDS: INSULIN LISPRO (humaLOG) 300 UNIT/3 ML VIAL SQ SCH ×8 (01:57→21:32)
[2017-07-29 05:58] LABS: Glucose,Whole Blood 203 mg/dL (75-99)
[2017-07-29] MEDS: PANTOPRAZOLE 40 MG TABLET PO SCH ×2 (06:56→17:22)
[2017-07-29 07:25] LABS: Calcium 8.9 mg/dL (8.4-10.2); Magnesium 2.1 mg/dL (1.6-2.3); Potassium 4.1 mmol/L (3.5-5.1)
[2017-07-29] MEDS: IPRATROPIUM-ALBUTEROL 3 ML NEB INHALATION SCH ×4 (07:35→20:31)
[2017-07-29] MEDS: SYMBICORT 80-4.5 MCG INHALER INHALATION SCH ×2 (07:35→20:31)
[2017-07-29] MEDS: CHOLECALCIFEROL 1,000 UNIT TAB PO SCH (08:49)
[2017-07-29] MEDS: methylPREDNISolone SOD SUCCI 40 MG/ML 1 ML VIAL IV SCH (08:49)
[2017-07-29] MEDS: LORATADINE 10 MG TAB PO SCH (08:50)
[2017-07-29] MEDS: SPIRONOLACTONE 25 MG TAB PO SCH (08:50)
[2017-07-29] MEDS: DOCUSATE 100 MG CAP PO SCH ×2 (08:50→21:32)
[2017-07-29] MEDS: LOSARTAN 50 MG TAB PO SCH (08:50)
[2017-07-29] MEDS: GABAPENTIN 400 MG CAP PO SCH ×3 (08:50→21:31)
[2017-07-29] MEDS: APIXABAN 5 MG TAB PO SCH ×2 (08:50→21:31)
[2017-07-29] MEDS: METOPROLOL SUCCINATE (ER) 50 MG TAB.ER.24H PO SCH (08:50)
[2017-07-29] MEDS: AZITHROMYCIN 500 MG TAB PO SCH (08:50)
[2017-07-29] MEDS: CYANOCOBALAMIN 500 MCG TAB PO SCH (08:50)
--- NOTE | 2017-07-29 10:18 | P.PN ---
Subjective Progress Note Date: 07/29/17 This is a 71-year-old female, patient of [facility]. She has a known past medical history of lung cancer with a previous left lower lobectomy and chemotherapy, diabetes mellitus, hypertension, coronary artery disease with previous cardiac stent, hyperlipidemia, COPD and bronchitis. Patient states over the last 2 days she's had worsening shortness of breath. She's also been having a mild cough which is productive at times. She has noted to have shortness of breath with walking a short distance. She denies any chest pain, nausea or vomiting, bowel movement changes or urinary symptoms. She denies any fevers chills or sweats. Patient was found to have atrial fibrillation with a rapid ventricular response on admission. Heart rate was 120. She was started on a Cardizem drip and IV heparin. Cardiology has been consulted. Patient was also started on IV Solu-Medrol for an acute COPD exacerbation. Also placed on antibiotics for questionable pneumonia versus bronchitis. She also had evidence of congestive heart failure BNP was elevated 2680. She has some bilateral lower extremity edema with a chest x-ray showing cardiomegaly and to correlate for possible pulmonary venous hypertension and interstitial edema. Patient did receive 1 dose of IV Lasix in the emergency room. Oxygen saturation on admission was at 86% and has gone up to 94% with 3 L. He has also been hypoglycemic with a blood sugar of 55. Patient reports that she has not taken her home medications state or eating anything today. This is likely contributing to patient's low blood sugar. Patient does not have a history of atrial fibrillation. Cardiology and pulmonary service have been consulted. 07/23/2017 patient has noted some improvement in her shortness of breath. However, during her morning shower she still had some shortness of breath. She' s currently on 5 L nasal cannula standing and 90%. Cardiology and pulmonary service are following. She is on IV steroids, IV Lasix and antibiotics. She denies any chest pain. Denies any nausea or vomiting. Reports having regular bowel movement. Denies any difficulty with urinating. 07/26/2017 patient started on a Lasix drip over the weekend. She also had some mental status changes and had undergone a computed tomography scan of the brain which was negative and a CTA was also negative. Patient was seen by neurology. They did order an MRI of the brain. There is no evidence of any metastatic disease to the brain. Patient is alert and responding to questions appropriately. She reports about 4 days since her last bowel movement. She denies any chest pain or shortness of breath denies any nausea or vomiting. Denies any burning with urination 07/27/2017 patient denies any chest pain or shortness breath. Denies any nausea or vomiting. Reports having bowel movements. Denies any burning with urination. Telemetry monitoring shows A. fib with a heart rate between 100-120 at times. 07/28/2017 patient still requiring Lasix drip. Has shown improvement in her weight. Still some shortness of breath. She is starting to feel better. Denies any chest pain or nausea or vomiting. She reports having bowel movements. Denies any burning with urination. Objective - Vital Signs Vital signs: Vital Signs Temp 97 F L 07/29/17 08:50 Pulse 89 07/29/17 08:50 Resp 20 07/29/17 08:50 BP 127/73 07/29/17 08:50 Pulse Ox 94 L 07/29/17 08:50 Intake & Output 07/28/17 07/29/17 07/29/17 18:59 06:59 18:59 Intake Total 521.300 502.6 240 Output Total 800 1800 Balance -278.700 -1297.4 240 Weight 99.7 kg Intake: Intake, IV Titration 41.300 2.6 Amount Insulin Regular 100 unit 41.300 2.6 In Sodium Chloride 0.9% 100 ml @ Titrate IV .Q0M [facility] Rx#:[id number] Oral 480 500 240 Output: Urine 800 1800 Other: Voiding Method Bedside Commode Bedside Commode Bedside Commode # Voids 1 - Exam Head normocephalic Neck supple Lungs diminished bilaterally Heart irregular A. fib on monitor Abdomen is soft nontender nondistended positive bowel sounds no hepatosplenomegaly Extremities 1-2+ edema bilateral lower extremities and legs are softer. Neuro alert and orientated to 3 - Labs CBC & Chem 7: 07/28/17 05:37 07/29/17 05:57 Labs: Abnormal Lab Results - Last 24 Hours (Table) 07/28/17 07/28/17 07/28/17 Range/Units 10:14 11:53 13:06 Sodium (137-145) mmol/L Chloride (98-107) mmol/L Carbon Dioxide (22-30) mmol/L BUN (7-17) mg/dL Creatinine (0.52-1.04) mg/dL Glucose (74-99) mg/dL POC Glucose (mg/dL) 177 H 108 H 266 H (75-99) mg/dL 07/28/17 07/28/17 07/28/17 Range/Units 15:16 17:14 18:17 Sodium (137-145) mmol/L Chloride (98-107) mmol/L Carbon Dioxide (22-30) mmol/L BUN (7-17) mg/dL Creatinine (0.52-1.04) mg/dL Glucose (74-99) mg/dL POC Glucose (mg/dL) 202 H 117 H 162 H (75-99) mg/dL 07/28/17 07/28/17 07/29/17 Range/Units 20:05 20:55 01:40 Sodium (137-145) mmol/L Chloride (98-107) mmol/L Carbon Dioxide (22-30) mmol/L BUN (7-17) mg/dL Creatinine (0.52-1.04) mg/dL Glucose (74-99) mg/dL POC Glucose (mg/dL) 125 H 113 H 246 H (75-99) mg/dL 07/29/17 07/29/17 Range/Units 05:56 05:57 Sodium 136 L (137-145) mmol/L Chloride 87 L (98-107) mmol/L Carbon Dioxide 38 H (22-30) mmol/L BUN 62 H (7-17) mg/dL Creatinine 1.10 H (0.52-1.04) mg/dL Glucose 220 H (74-99) mg/dL POC Glucose (mg/dL) 203 H (75-99) mg/dL Microbiology - Last 24 Hours (Table) 07/22/17 12:14 Blood Culture - Final Blood No Growth after 144 hours Assessment and Plan Plan: 1. Acute and chronic hypoxic and hypercapnic respiratory failure: multifactorial likely related to COPD exacerbation, atrial fibrillation with rapid ventricular response, CHF exacerbation and bronchitis 2. Acute COPD exacerbation patient is been placed on IV Solu-Medrol with bronchodilators. We'll monitor pulmonary service is following 3. Acute tracheobronchitis: Patient has been started on Rocephin and azithromycin. Pulmonary service following. They have reviewed this chest x- ray and likely left lower lobe changes are chronic. They were present on previous admission in November 2016 and 2009 4. Atrial fibrillation with rapid ventricular response and new onset: Eliquis 5 mg twice a day for anticoagulation and metoprolol for rate control. Cardiology did increase metoprolol to 50 mg daily. Cardiology following. They discontinue the aspirin and Motrin while patient is on Eliquis 5. Acute diastolic CHF exacerbation: started on Lasix drip over the weekend. Echo shows an EF of 55-60%. There is moderate to severe pulmonary hypertension. And a small pericardial effusion. We'll await further cardiology and pulmonary recommendations 6. History of lung cancer status post left lower lobectomy and chemotherapy 7. Diabetes mellitus type 2 with hypoglycemia: Patient taken off of insulin drip yesterday. We'll resume her home dose of Tresiba and NovoLog scheduled with each meals. Tresiba will be changed to Levemir while in hospital 8. History of coronary artery disease with previous angioplasty and stent placement 9. Altered mental status changes: MRI of the brain so shows no metastatic disease. Neurology is following. Patient did have a code stroke called during the weekend. Computed tomography scan of the brain negative and CTA negative. Symptoms may be related to a metabolic encephalopathy from her acute infection or possibly steroid induced psychosis. States steroids were tapered down over the weekend. Patient appears back at baseline. 10. Constipation start Colace and give lactulose Consult physical therapy GI prophylaxis Protonix and DVT prophylaxis Eliquis I performed an examination of the patient and discussed their management with the physician College President. I have reviewed the Physician College President's notes and agree with the documented findings and plan of care
--- NOTE | 2017-07-29 11:29 | P.PN ---
Subjective Progress Note Date: 07/29/17 Principal diagnosis: Acute exacerbation of chronic obstructive pulmonary disease, congestive heart failure, left lung atelectasis and previous lobectomy of the left lower lobe. This is a 71-year-old female patient with past medical history of COPD, lung cancer status post left lower lobectomy with chemoradiation, diabetes mellitus, hypertension, GERD who presented to the emergency room from her PCPs office Dr. Joan Stringer with complaints of increased shortness of breath since yesterday and a mild productive cough with small amount of thick yellow sputum. She denied fever or chills, chest congestion, hemoptysis, or wheezing. She also noted increased swelling in bilateral arms and legs, which is new to her. She denied chest pain or orthopnea. Patient is a remote smoker, with a 25-pack- year history, quit many years ago. Her symptoms also included generalized weakness, which is significantly worse today. When she presented to her PCPs office, she was told she had pneumonia. On presentation to the emergency room patient was found to be in A. fib with RVR with a rate of 120 BPM and hypoxic with O2 sat of 86% on 2 L per nasal cannula. She does wear home O2 at bedtime at 2 L. She was initiated on Cardizem drip for rate control and heparin drip per protocol. She sees Dr. Ledezma for management of her chronic COPD, and she is on Advair 250/50 and albuterol nebulized treatments as well as her rescue inhaler at home. Her last admission for COPD exacerbation and tracheobronchitis was in November 2016. Of note she was also found to be hypoglycemic in the emergency room with a blood sugar of 61, which was treated per hypoglycemia protocol. Patient is on a combination of glimepiride, metformin, NovoLog flex pen and Tresiba insulin at home. Her capillary blood sugar was rechecked after crackers and juice and is now at 74 mg/dL. Patient is awake alert, in no acute distress. On examination her lungs sounds scattered end expiratory wheezes throughout the lung castro with absent lung sounds over left lower lobe. No significant sputum production, no rhonchi. Chest x-ray showed cardiomegaly with prominent central vascularity and prominent interstitium. Left lower lobe density could be related to her history of left lower lung lobectomy. Patient has no leukocytosis, no signs of chest congestion or fever. No chills or night sweats. ProBNP 2680, patient is on Lasix 40 mg every 8 hours per attending. Patient has a history of obstructive sleep apnea for which she wears CPAP device at home but she is unsure of her home settings. Family will be asked to bring the home CPAP unit here. On 07/23/2017 patient is seen in follow-up. She is sleeping sitting up on her bedside table. She denied fever or chills, she denied coughing or any sputum production. Lung sounds are diminished with end expiratory wheezes on forced exhale maneuver. She is wearing 5 L oxygen per nasal cannula with O2 saturations around 90%. Chest x-ray from 07/23/2017 has been reviewed. Showed increased pulmonary vascularity, cardiomegaly, and retrocardiac density. She continues on Cardizem drip at 5 mg per hour, she remains in A. fib with a better controlled rate, around 89 BPM today. Continues on heparin drip for anticoagulation. IV Lasix with mild diuresis, she has a -573 mL balance overnight over the last 24 hours. She continues on IV steroids and on antibiotics in the form of Zithromax and Rocephin. She denies any chest pain. He states her breathing is slightly better today. Her bilateral lower leg edema show slight improvement. On 07/24/2017 the patient is being seen for a follow-up. The patient is still being treated for acute CHF, atrial fibrillation an acute COPD exacerbation. Note that around 3:57 AM in the morning the patient had an event where she woke up confused and disoriented. Code stroke was called and the patient was taken for a CAT scan that showed no acute abnormalities in the head and there was no evidence of any acute or recent territorial infarct. CT angios the brain was also done that showed no vascular abnormalities of occlusion. This lasted only for 15 minutes and the patient recovered. During this time the patient did not have any hypotension, cardiac arrhythmia or hypoglycemia. Note that the patient has obstructive sleep apnea and she has not been using his CPAP machine during her current hospital stay. For now, the patient is still in atrial fibrillation.. Have cardiac rhythm is atrial fibrillation. The patient is still on Lasix drip for diuresis. She is producing adequate amount of urine output. Her COPD exacerbation is also being treated with a combination of DuoNeb nebulized treatments around the clock and IV Solu-Medrol. She is also on examination Rocephin and Zithromax. She is post left lower lobe resection for a previous history of non-small cell lung cancer. She is obese. She still has extensive edema in lower eczematous bilaterally. On 07/25/2017 the patient is being seen for a follow-up. The Lasix drip has been drop down to 5 mg an hour. Still producing adequate amount of urine output. Still on a combination of Rocephin and Zithromax. Chest x-ray from today shows volume loss in the left lower lobe related to a previous left lower lobe resection. No acute abnormalities or airspace disease. Still on DuoNeb nebulized treatments around the clock. Still on IV Solu Medrol 40 mg every 12 hours. No loss in consciousness. No altered mental status. The patient is on long-term anticoagulation with Eliquis On 07/26/2017, patient is doing better, remains on Lasix drip at 5 mg per hour. Adequate urine output is noted, remains on antibiotics including Rocephin and Zithromax for presumptive left lung pneumonia. Patient has mostly left lower lobe atelectasis. And she had a previous lobectomy. Remains on bronchodilators for underlying COPD, and remains on steroids. Overall the patient is doing much better and breathing easier. Continues to have significant swelling in lower extremities in spite of a Lasix drip. CBC was relatively normal basic metabolic profile was normal bicarb is 39 BUN is 57 creatinine is 1.1. Patient was reevaluated today on 07/27/2017, seems to be doing well, relatively asymptomatic, patient is in A. fib with a rate of 100-120, MRI was nondiagnostic. Clinically the patient is feeling better, no cough no wheezing, no fever, no chills, no hemoptysis. The patient was seen again today 07/28/2017 in follow-up on the selective care unit. She is awake and alert in no acute distress. She is sitting up at the bedside. She denies any worsening shortness of breath, cough or congestion. She is maintaining O2 saturations in the low 90s on 4 L/m per nasal cannula. Currently afebrile. Blood cultures reveal no growth. She is still maintained on a Lasix drip at 5 mg per hour. She is currently in a -3 L. She is also on a insulin drip at 3.5 units per hour. Blood glucose 177. The patient is seen again today 07/29/2017 in follow-up on the selective care unit. She is currently awake and alert in no acute distress. She states her breathing is better today as compared to yesterday. Her chest x-ray did reveal improved aeration. She is maintaining good O2 saturations in the mid 90s on 4 L /m per nasal cannula. She remains in a negative balance. She remains on Lasix drip at 5 mg per hour. Creatinine 1.10. Objective - Vital Signs Vital signs: Vital Signs Temp 97 F L 07/29/17 08:50 Pulse 89 07/29/17 08:50 Resp 20 07/29/17 08:50 BP 127/73 07/29/17 08:50 Pulse Ox 94 L 07/29/17 08:50 Intake & Output 07/28/17 07/29/17 07/29/17 18:59 06:59 18:59 Intake Total 521.300 502.6 240 Output Total 800 1800 Balance -278.700 -1297.4 240 Weight 99.7 kg Intake: Intake, IV Titration 41.300 2.6 Amount Insulin Regular 100 unit 41.300 2.6 In Sodium Chloride 0.9% 100 ml @ Titrate IV .Q0M [facility] Rx#:[id number] Oral 480 500 240 Output: Urine 800 1800 Other: Voiding Method Bedside Commode Bedside Commode Bedside Commode # Voids 1 - Exam GENERAL EXAM: Alert, active, comfortable in no apparent distress. HEAD: Normocephalic. EYES: Normal reaction of pupils, equal size. NOSE: Clear with pink turbinates. THROAT: No erythema or exudates. NECK: No masses, no JVD. CHEST: No chest wall deformity. LUNGS: Equal air entry with crackles in the bilateral posterior bases more so on the left. CVS: S1 and S2 normal with no audible murmur, irregular rhythm. ABDOMEN: No hepatosplenomegaly, normal bowel sounds, no guarding or rigidity. SPINE: No scoliosis or deformity SKIN: No rashes CENTRAL NERVOUS SYSTEM: No focal deficits, tone is normal in all 4 extremities. EXTREMITIES: There is 1+ peripheral edema. No clubbing, no cyanosis. Peripheral pulses are intact. - Labs CBC & Chem 7: 07/28/17 05:37 07/29/17 05:57 Labs: Abnormal Lab Results - Last 24 Hours (Table) 07/28/17 07/28/17 07/28/17 Range/Units 11:53 13:06 15:16 Sodium (137-145) mmol/L Chloride (98-107) mmol/L Carbon Dioxide (22-30) mmol/L BUN (7-17) mg/dL Creatinine (0.52-1.04) mg/dL Glucose (74-99) mg/dL POC Glucose (mg/dL) 108 H 266 H 202 H (75-99) mg/dL 07/28/17 07/28/17 07/28/17 Range/Units 17:14 18: 20:05 Sodium (137-145) mmol/L Chloride (98-107) mmol/L Carbon Dioxide (22-30) mmol/L BUN (7-17) mg/dL Creatinine (0.52-1.04) mg/dL Glucose (74-99) mg/dL POC Glucose (mg/dL) 117 H 162 H 125 H (75-99) mg/dL 07/28/17 07/29/17 07/29/17 Range/Units 20:55 01:40 05:56 Sodium (137-145) mmol/L Chloride (98-107) mmol/L Carbon Dioxide (22-30) mmol/L BUN (7-17) mg/dL Creatinine (0.52-1.04) mg/dL Glucose (74-99) mg/dL POC Glucose (mg/dL) 113 H 246 H 203 H (75-99) mg/dL 07/29/17 Range/Units 05:57 Sodium 136 L (137-145) mmol/L Chloride 87 L (98-107) mmol/L Carbon Dioxide 38 H (22-30) mmol/L BUN 62 H (7-17) mg/dL Creatinine 1.10 H (0.52-1.04) mg/dL Glucose 220 H (74-99) mg/dL POC Glucose (mg/dL) (75-99) mg/dL Microbiology - Last 24 Hours (Table) 07/22/17 12:14 Blood Culture - Final Blood No Growth after 144 hours Assessment and Plan Assessment: #1. Acute COPD exacerbation with an element of tracheobronchitis, improving as the patient is being treated with a combination of bronchodilators, steroids and antibiotics. #2. Possible Left lower lobe infiltrate suggestive of pneumonia, atelectasis versus effusion in the patient with a history of left lower lung lobectomy for lung cancer. Could represent a chronic finding. Small pleural effusion on the left was difficult to exclude. #3. Acute on chronic hypoxic respiratory failure secondary to COPD exacerbation and an element of congestive heart failure, proBNP is elevated at 2680 pG/mL and increased peripheral edema. 2-D echo results show EF between 55 and 60% with moderate to severe pulmonary hypertension with right ventricular systolic pressure of 57 mmHg. #4. History of lung cancer with left lobectomy and chemotherapy #5. History of coronary artery disease and stent placement, negative troponins 3 #6. Remote nicotine dependence, in remission #7. Underlying history of diabetes mellitus, with hypoglycemia, further episodes of hypoglycemia overnight #8. History of hypertension #9. Gastroesophageal reflux disease #10. Atrial fibrillation, anticoagulated with apixaban. #11. CHF exacerbation with increased lower extremity edema and the patient is currently on Lasix drip at 5 mg an hour #12. Obstructive sleep apnea #13. Episode of confusion which recovered without any residual neurologic deficits Plan: The patient was seen and evaluated by Dr. Arguello. We'll discontinue the IV Solu -Medrol. We will initiate a prednisone burst and taper. We'll continue to wean the FiO2 while maintaining O2 saturations in the 90s. Diuretics per cardiology. . We will increase her activity as tolerated. We will continue to follow. I, the cosigning physician, have performed a history and physical examination on the patient. Lung sounds with bilateral crackle, more so on the left. Maintaining good O2 saturations in the 90s on 4L/min per nc.. I have discussed the assessment and plan of care with my nurse practitioner, Juany Nielsen. I attest the above documented note as dictated by her.
[2017-07-29 11:32] VITALS: BMI 33.4
[2017-07-29] MEDS: FUROSEMIDE 250 MG in SODIUM CHLORIDE 0.9% 225 ML IVP SCH (11:37)
[2017-07-29 11:49] LABS: Glucose,Whole Blood 201 mg/dL (75-99)
[2017-07-29] MEDS ORDERED: INSULIN DETEMIR 100 UNIT/ML 10 ML VIAL SQ SCH (12:00)
[2017-07-29] MEDS: FUROSEMIDE 40 MG TAB PO SCH ×3 (14:19→21:32)
--- NOTE | 2017-07-29 14:32 | P.PN ---
Subjective Progress Note Date: 07/29/17 Principal diagnosis: Shortness of breath This is a pleasant 71-year-old female with history of COPD, lung CA with prior left lower lobectomy, status post chemotherapy and radiation, sleep apnea, hypertension, diabetes, GERD, who presented to the hospital with symptoms of progressively worsening shortness of breath. Positive PND and orthopnea. Patient also has significant amount of peripheral edema which she states that she has had for several months. Prior history of smoking. On presentation here EKG showed atrial fibrillation with a rapid ventricular response, was initiated on IV Cardizem drip. According to the patient, she has never been told in the past to have atrial fibrillation or congestive cardiac failure. 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 Chest x-ray on admission revealed cardiomegaly and possible pulmonary venous hypertension as well as interstitial edema. Possible left lower lobe atelectasis versus pneumonia. Echocardiogram with Doppler study was performed which revealed a small pericardial effusion moderate concentric LVH, ejection fraction 55-60%. Moderate to severe pulmonary hypertension. Repeat chest x-ray this morning shows persistence in interstitial edema, possible pneumonia, small effusion. Blood pressure on arrival 172/80, heart rate 120, 91% on 4 L of oxygen with a temperature of 99.1. Today she is afebrile, blood pressure 126/50, heart rate 90, 92% on 5 L of oxygen. White blood cell count 5.7, hemoglobin 12.3, platelet count 193. Sodium 136, potassium 4.8, BUN 28, creatinine 0.7. Troponin 0.019, 0.030, 0.017. BNP level 2680. was initiated on IV Lasix in the emergency room, she is on 40 mg IV every 8 hour. Patient is diuresing from the IV Lasix, small amounts. Patient does state this morning that her breathing is somewhat improved, however continues to feel significantly short of breath, continues to have significant bilateral peripheral edema and abdominal swelling. 07/24/2017 Patient was initiated on IV Lasix drip diuresed well through the night last night, weight is down 2 kg today. We also initiated the patient on Eliquis 5 mg one tablet by mouth twice a day for anticoagulation, she is covered for this medication. 07/25/2017 10 seen and examined this morning, continues to diurese well, patient states she feels better better every day, continues to have significant edema. Weight is down 2 kg today, creatinine 1.3, blood pressure 40/90, heart rate in the 90s. We will continue current medications and increase her metoprolol tartrate 50 daily. 07/27/2017 Patient seen and examined this morning, continues to diurese well. Feeling much better overall. We will continue current dose of IV Lasix drip. Check lytes BUN and creatinine in the morning. 07/28/2017 She continues to be on Lasix drip at 5 mg per hour, continues to diurese well. Creatinine 1.1 07/29 2017 Patient seen and examined today, weight down 1 kg. She has been up ambulating in the hallway today overall doing significantly better. IV Lasix drip was discontinued and patient has been started on oral diuretics. Objective - Vital Signs Vital signs: Vital Signs Temp 97 F L 07/29/17 08:50 Pulse 70 07/29/17 11:42 Resp 20 07/29/17 08:50 BP 127/73 07/29/17 08:50 Pulse Ox 94 L 07/29/17 08:50 Intake & Output 07/28/17 07/29/17 07/29/17 18:59 06:59 18:59 Intake Total 521.300 502.6 439.083 Output Total 800 1800 Balance -278.700 -1297.4 439.083 Weight 99.7 kg 99.7 kg Intake: Intake, IV Titration 41.300 2.6 199.083 Amount Furosemide 250 mg In 199.083 Sodium Chloride 0.9% 225 ml @ 5 MG/HR 5 mls/hr IVP .Q24H [facility] Rx#:[id number] Insulin Regular 100 unit 41.300 2.6 In Sodium Chloride 0.9% 100 ml @ Titrate IV .Q0M [facility] Rx#:[id number] Oral 480 500 240 Output: Urine 800 1800 Other: Voiding Method Bedside Commode Bedside Commode Bedside Commode # Voids 1 - Exam PHYSICAL EXAMINATION: HEENT: Head is atraumatic, normocephalic. Pupils equal, round. Neck is supple. There is elevated jugular venous pressure. HEART EXAMINATION: S1 and S2 irregularly irregular CHEST EXAMINATION: And's reveal scattered coarse rhonchi with rales to bilateral bases and diminished air entry to the bases. ABDOMEN: Soft,, firm, distended. Bowel sounds are heard. No organomegaly noted. EXTREMITIES: 2+ peripheral pulses with 1+ evidence of peripheral edema and no calf tenderness noted. NEUROLOGIC patient is awake, alert and oriented -3. - Labs CBC & Chem 7: 07/28/17 05:37 07/29/17 05:57 Labs: Abnormal Lab Results - Last 24 Hours (Table) 07/28/17 07/28/17 07/28/17 Range/Units 15:16 17:14 18:17 Sodium (137-145) mmol/L Chloride (98-107) mmol/L Carbon Dioxide (22-30) mmol/L BUN (7-17) mg/dL Creatinine (0.52-1.04) mg/dL Glucose (74-99) mg/dL POC Glucose (mg/dL) 202 H 117 H 162 H (75-99) mg/dL 07/28/17 07/28/17 07/29/17 Range/Units 20:05 20:55 01:40 Sodium (137-145) mmol/L Chloride (98-107) mmol/L Carbon Dioxide (22-30) mmol/L BUN (7-17) mg/dL Creatinine (0.52-1.04) mg/dL Glucose (74-99) mg/dL POC Glucose (mg/dL) 125 H 113 H 246 H (75-99) mg/dL 07/29/17 07/29/17 07/29/17 Range/Units 05:56 05:57 11:47 Sodium 136 L (137-145) mmol/L Chloride 87 L (98-107) mmol/L Carbon Dioxide 38 H (22-30) mmol/L BUN 62 H (7-17) mg/dL Creatinine 1.10 H (0.52-1.04) mg/dL Glucose 220 H (74-99) mg/dL POC Glucose (mg/dL) 203 H 201 H (75-99) mg/dL Microbiology - Last 24 Hours (Table) 07/22/17 12:14 Blood Culture - Final Blood No Growth after 144 hours Assessment and Plan Plan: Assessment and plan #1 diastolic congestive heart failure acute on chronic #2 atrial fibrillation with rapid ventricular response, appears to be of new onset. #3 exacerbation of COPD #4 history of lung cancer status post left lower lobectomy and chemotherapy with radiation #5 diabetes #6 hypertension #7 hyperlipidemia #8 sleep apnea Plan From cardiology's perspective, IV Lasix drip is to be discontinued and patient will be started on oral diuretics. DNP note has been reviewed, I agree with a documented findings and plan of care. Patient was seen and examined.
[2017-07-29 16:42] LABS: Glucose,Whole Blood 113 mg/dL (75-99)
[2017-07-29 21:13] LABS: Glucose,Whole Blood 171 mg/dL (75-99)
[2017-07-29] MEDS: FAMOTIDINE 20 MG TAB PO SCH (21:31)
[2017-07-29] MEDS: INSULIN DETEMIR 100 UNIT/ML 10 ML VIAL SQ SCH (21:32)
[2017-07-29] MEDS: ATORVASTATIN 40 MG TAB PO SCH (21:32)
[2017-07-30 06:22] LABS: Glucose,Whole Blood 132 mg/dL (75-99)
[2017-07-30] MEDS: INSULIN LISPRO (humaLOG) 300 UNIT/3 ML VIAL SQ SCH ×7 (06:28→20:16)
[2017-07-30 06:55] LABS: Magnesium 2.2 mg/dL (1.6-2.3); Potassium 3.8 mmol/L (3.5-5.1)
[2017-07-30] MEDS: PANTOPRAZOLE 40 MG TABLET PO SCH ×2 (06:55→17:25)
[2017-07-30] MEDS: IPRATROPIUM-ALBUTEROL 3 ML NEB INHALATION SCH ×4 (07:43→19:35)
[2017-07-30] MEDS: SYMBICORT 80-4.5 MCG INHALER INHALATION SCH ×2 (07:43→19:35)
[2017-07-30] MEDS: APIXABAN 5 MG TAB PO SCH ×2 (10:25→20:24)
[2017-07-30] MEDS: GABAPENTIN 400 MG CAP PO SCH ×3 (10:26→20:24)
[2017-07-30] MEDS: AZITHROMYCIN 500 MG TAB PO SCH (10:26)
[2017-07-30] MEDS: DOCUSATE 100 MG CAP PO SCH ×2 (10:26→20:24)
[2017-07-30] MEDS: FUROSEMIDE 40 MG TAB PO SCH ×2 (10:26→17:25)
[2017-07-30] MEDS: METOPROLOL SUCCINATE (ER) 50 MG TAB.ER.24H PO SCH (10:27)
[2017-07-30] MEDS: LORATADINE 10 MG TAB PO SCH (10:27)
[2017-07-30] MEDS: LOSARTAN 50 MG TAB PO SCH (10:27)
[2017-07-30] MEDS: predniSONE 20 MG TAB PO SCH (10:27)
[2017-07-30] MEDS: SPIRONOLACTONE 25 MG TAB PO SCH (10:28)
[2017-07-30] MEDS: CHOLECALCIFEROL 1,000 UNIT TAB PO SCH (10:29)
[2017-07-30] MEDS: CYANOCOBALAMIN 500 MCG TAB PO SCH (10:29)
[2017-07-30 11:47] LABS: Glucose,Whole Blood 110 mg/dL (75-99)
--- NOTE | 2017-07-30 13:06 | PN ---
PROGRESS NOTE This patient has been treated for congestive cardiac failure. She is feeling much better. Her weight is down to 98.6 kg. Remains comfortable. The swelling in the legs is significantly improved. Patient is afebrile. Respirations are not labored. Blood pressure is 122/93 mmHg. First and second heart sounds are normal. Lungs are clinically clear to auscultation and percussion. Patient's bicarb is high which is probably secondary to diuretic therapy. We will continue patient on p.o. Lasix. Patient can be discharged home in the next 24- 48 hours. MMODL / IJN: [id number] /
--- NOTE | 2017-07-30 13:47 | P.PN ---
Subjective Progress Note Date: 07/30/17 Principal diagnosis: Acute exacerbation of COPD, congestive heart failure, left lung atelectasis and small left pleural effusion. This is a 71-year-old female patient with past medical history of COPD, lung cancer status post left lower lobectomy with chemoradiation, diabetes mellitus, hypertension, GERD who presented to the emergency room from her PCPs office Dr. Joan Stringer with complaints of increased shortness of breath since yesterday and a mild productive cough with small amount of thick yellow sputum. She denied fever or chills, chest congestion, hemoptysis, or wheezing. She also noted increased swelling in bilateral arms and legs, which is new to her. She denied chest pain or orthopnea. Patient is a remote smoker, with a 25-pack- year history, quit many years ago. Her symptoms also included generalized weakness, which is significantly worse today. When she presented to her PCPs office, she was told she had pneumonia. On presentation to the emergency room patient was found to be in A. fib with RVR with a rate of 120 BPM and hypoxic with O2 sat of 86% on 2 L per nasal cannula. She does wear home O2 at bedtime at 2 L. She was initiated on Cardizem drip for rate control and heparin drip per protocol. She sees Dr. Ledezma for management of her chronic COPD, and she is on Advair 250/50 and albuterol nebulized treatments as well as her rescue inhaler at home. Her last admission for COPD exacerbation and tracheobronchitis was in November 2016. Of note she was also found to be hypoglycemic in the emergency room with a blood sugar of 61, which was treated per hypoglycemia protocol. Patient is on a combination of glimepiride, metformin, NovoLog flex pen and Tresiba insulin at home. Her capillary blood sugar was rechecked after crackers and juice and is now at 74 mg/dL. Patient is awake alert, in no acute distress. On examination her lungs sounds scattered end expiratory wheezes throughout the lung castro with absent lung sounds over left lower lobe. No significant sputum production, no rhonchi. Chest x-ray showed cardiomegaly with prominent central vascularity and prominent interstitium. Left lower lobe density could be related to her history of left lower lung lobectomy. Patient has no leukocytosis, no signs of chest congestion or fever. No chills or night sweats. ProBNP 2680, patient is on Lasix 40 mg every 8 hours per attending. Patient has a history of obstructive sleep apnea for which she wears CPAP device at home but she is unsure of her home settings. Family will be asked to bring the home CPAP unit here. On 07/23/2017 patient is seen in follow-up. She is sleeping sitting up on her bedside table. She denied fever or chills, she denied coughing or any sputum production. Lung sounds are diminished with end expiratory wheezes on forced exhale maneuver. She is wearing 5 L oxygen per nasal cannula with O2 saturations around 90%. Chest x-ray from 07/23/2017 has been reviewed. Showed increased pulmonary vascularity, cardiomegaly, and retrocardiac density. She continues on Cardizem drip at 5 mg per hour, she remains in A. fib with a better controlled rate, around 89 BPM today. Continues on heparin drip for anticoagulation. IV Lasix with mild diuresis, she has a -573 mL balance overnight over the last 24 hours. She continues on IV steroids and on antibiotics in the form of Zithromax and Rocephin. She denies any chest pain. He states her breathing is slightly better today. Her bilateral lower leg edema show slight improvement. On 07/24/2017 the patient is being seen for a follow-up. The patient is still being treated for acute CHF, atrial fibrillation an acute COPD exacerbation. Note that around 3:57 AM in the morning the patient had an event where she woke up confused and disoriented. Code stroke was called and the patient was taken for a CAT scan that showed no acute abnormalities in the head and there was no evidence of any acute or recent territorial infarct. CT angios the brain was also done that showed no vascular abnormalities of occlusion. This lasted only for 15 minutes and the patient recovered. During this time the patient did not have any hypotension, cardiac arrhythmia or hypoglycemia. Note that the patient has obstructive sleep apnea and she has not been using his CPAP machine during her current hospital stay. For now, the patient is still in atrial fibrillation.. Have cardiac rhythm is atrial fibrillation. The patient is still on Lasix drip for diuresis. She is producing adequate amount of urine output. Her COPD exacerbation is also being treated with a combination of DuoNeb nebulized treatments around the clock and IV Solu-Medrol. She is also on examination Rocephin and Zithromax. She is post left lower lobe resection for a previous history of non-small cell lung cancer. She is obese. She still has extensive edema in lower eczematous bilaterally. On 07/25/2017 the patient is being seen for a follow-up. The Lasix drip has been drop down to 5 mg an hour. Still producing adequate amount of urine output. Still on a combination of Rocephin and Zithromax. Chest x-ray from today shows volume loss in the left lower lobe related to a previous left lower lobe resection. No acute abnormalities or airspace disease. Still on DuoNeb nebulized treatments around the clock. Still on IV Solu Medrol 40 mg every 12 hours. No loss in consciousness. No altered mental status. The patient is on long-term anticoagulation with Eliquis On 07/26/2017, patient is doing better, remains on Lasix drip at 5 mg per hour. Adequate urine output is noted, remains on antibiotics including Rocephin and Zithromax for presumptive left lung pneumonia. Patient has mostly left lower lobe atelectasis. And she had a previous lobectomy. Remains on bronchodilators for underlying COPD, and remains on steroids. Overall the patient is doing much better and breathing easier. Continues to have significant swelling in lower extremities in spite of a Lasix drip. CBC was relatively normal basic metabolic profile was normal bicarb is 39 BUN is 57 creatinine is 1.1. Patient was reevaluated today on 07/27/2017, seems to be doing well, relatively asymptomatic, patient is in A. fib with a rate of 100-120, MRI was nondiagnostic. Clinically the patient is feeling better, no cough no wheezing, no fever, no chills, no hemoptysis. The patient was seen again today 07/28/2017 in follow-up on the selective care unit. She is awake and alert in no acute distress. She is sitting up at the bedside. She denies any worsening shortness of breath, cough or congestion. She is maintaining O2 saturations in the low 90s on 4 L/m per nasal cannula. Currently afebrile. Blood cultures reveal no growth. She is still maintained on a Lasix drip at 5 mg per hour. She is currently in a -3 L. She is also on a insulin drip at 3.5 units per hour. Blood glucose 177. The patient is seen again today 07/29/2017 in follow-up on the selective care unit. She is currently awake and alert in no acute distress. She states her breathing is better today as compared to yesterday. Her chest x-ray did reveal improved aeration. She is maintaining good O2 saturations in the mid 90s on 4 L /m per nasal cannula. She remains in a negative balance. She remains on Lasix drip at 5 mg per hour. Creatinine 1.10. Patient was reevaluated today on 07/30/2017, continues to diurese and continues to do well remains on Lasix at 40 mg by mouth every 8 hours. Patient continues to be in a negative fluid balance, and she is feeling much better over the last few days. Her meds and her previous x-rays were reviewed, and I believe at this point patient could be considered for discharge planning once cleared by cardiology for discharge. As a matter of fact patient seems to be slightly on the dry side, BUN is up to 56 creatinine is 1.20, hence the Lasix dose could be cut down to 40 mg by mouth twice a day. I went ahead and cut it down to twice a day instead of 3 times a day. Objective - Vital Signs Vital signs: Vital Signs Temp 97.0 F L 07/30/17 11:15 Pulse 80 07/30/17 12:03 Resp 18 07/30/17 11:15 BP 163/79 07/30/17 11:15 Pulse Ox 94 L 07/30/17 11:15 Intake & Output 07/29/17 07/30/17 07/30/17 18:59 06:59 18:59 Intake Total 1039.083 180 Output Total 200 1225 Balance 839.083 -1225 180 Weight 99.7 kg 98.6 kg Intake: Intake, IV Titration 199.083 Amount Furosemide 250 mg In 199.083 Sodium Chloride 0.9% 225 ml @ 5 MG/HR 5 mls/hr IVP .Q24H [facility] Rx#:[id number] Oral 840 180 Output: Urine 200 1225 Other: Voiding Method Bedside Commode Bedside Commode Bedside Commode # Voids 1 1 1 # Bowel Movements 1 1 - Exam GENERAL EXAM: Alert, active, comfortable in no apparent distress. HEAD: Normocephalic. EYES: Normal reaction of pupils, equal size. NOSE: Clear with pink turbinates. THROAT: No erythema or exudates. NECK: No masses, no JVD. CHEST: No chest wall deformity. LUNGS: Equal air entry with crackles in the bilateral posterior bases more so on the left. CVS: S1 and S2 normal with no audible murmur, irregular rhythm. ABDOMEN: No hepatosplenomegaly, normal bowel sounds, no guarding or rigidity. SPINE: No scoliosis or deformity SKIN: No rashes CENTRAL NERVOUS SYSTEM: No focal deficits, tone is normal in all 4 extremities. EXTREMITIES: There is 1+ peripheral edema. No clubbing, no cyanosis. Peripheral pulses are intact. - Labs CBC & Chem 7: 07/28/17 05:37 07/30/17 06:13 Labs: Abnormal Lab Results - Last 24 Hours (Table) 07/29/17 07/29/17 07/30/17 Range/Units 16:40 21:11 06:09 Sodium (137-145) mmol/L Chloride (98-107) mmol/L Carbon Dioxide (22-30) mmol/L BUN (7-17) mg/dL Creatinine (0.52-1.04) mg/dL Glucose (74-99) mg/dL POC Glucose (mg/dL) 113 H 171 H 132 H (75-99) mg/dL 07/30/17 07/30/17 Range/Units 06:13 11:42 Sodium 136 L (137-145) mmol/L Chloride 87 L (98-107) mmol/L Carbon Dioxide 42 H* (22-30) mmol/L BUN 56 H (7-17) mg/dL Creatinine 1.20 H (0.52-1.04) mg/dL Glucose 138 H (74-99) mg/dL POC Glucose (mg/dL) 110 H (75-99) mg/dL Assessment and Plan Plan: #1. Acute COPD exacerbation with an element of tracheobronchitis, improving as the patient is being treated with a combination of bronchodilators, steroids and antibiotics. #2. Possible Left lower lobe infiltrate suggestive of pneumonia, atelectasis versus effusion in the patient with a history of left lower lung lobectomy for lung cancer. Could represent a chronic finding. Small pleural effusion on the left was difficult to exclude. #3. Acute on chronic hypoxic respiratory failure secondary to COPD exacerbation and an element of congestive heart failure, proBNP is elevated at 2680 pG/mL and increased peripheral edema. 2-D echo results show EF between 55 and 60% with moderate to severe pulmonary hypertension with right ventricular systolic pressure of 57 mmHg. #4. History of lung cancer with left lobectomy and chemotherapy #5. History of coronary artery disease and stent placement, negative troponins 3 #6. Remote nicotine dependence, in remission #7. Underlying history of diabetes mellitus, with hypoglycemia, further episodes of hypoglycemia overnight #8. History of hypertension #9. Gastroesophageal reflux disease #10. Atrial fibrillation, anticoagulated with apixaban. #11. CHF exacerbation with increased lower extremity edema and the patient is currently on Lasix drip at 5 mg an hour #12. Obstructive sleep apnea #13. Episode of confusion which recovered without any residual neurologic deficits Recommendation: The Lasix to 40 mg by mouth twice a day, continue the rest of the medications as listed, consider discharge planning in the next 24 hours once the patient is cleared by other consultants on the case. Pulmonary-ulis, we'll consider outpatient basis post discharge. Time with Patient: Less than 30
--- NOTE | 2017-07-30 14:28 | P.PN ---
Subjective Progress Note Date: 07/30/17 This is a 71-year-old female, patient of [facility]. She has a known past medical history of lung cancer with a previous left lower lobectomy and chemotherapy, diabetes mellitus, hypertension, coronary artery disease with previous cardiac stent, hyperlipidemia, COPD and bronchitis. Patient states over the last 2 days she's had worsening shortness of breath. She's also been having a mild cough which is productive at times. She has noted to have shortness of breath with walking a short distance. She denies any chest pain, nausea or vomiting, bowel movement changes or urinary symptoms. She denies any fevers chills or sweats. Patient was found to have atrial fibrillation with a rapid ventricular response on admission. Heart rate was 120. She was started on a Cardizem drip and IV heparin. Cardiology has been consulted. Patient was also started on IV Solu-Medrol for an acute COPD exacerbation. Also placed on antibiotics for questionable pneumonia versus bronchitis. She also had evidence of congestive heart failure BNP was elevated 2680. She has some bilateral lower extremity edema with a chest x-ray showing cardiomegaly and to correlate for possible pulmonary venous hypertension and interstitial edema. Patient did receive 1 dose of IV Lasix in the emergency room. Oxygen saturation on admission was at 86% and has gone up to 94% with 3 L. He has also been hypoglycemic with a blood sugar of 55. Patient reports that she has not taken her home medications state or eating anything today. This is likely contributing to patient's low blood sugar. Patient does not have a history of atrial fibrillation. Cardiology and pulmonary service have been consulted. 07/23/2017 patient has noted some improvement in her shortness of breath. However, during her morning shower she still had some shortness of breath. She' s currently on 5 L nasal cannula standing and 90%. Cardiology and pulmonary service are following. She is on IV steroids, IV Lasix and antibiotics. She denies any chest pain. Denies any nausea or vomiting. Reports having regular bowel movement. Denies any difficulty with urinating. 07/26/2017 patient started on a Lasix drip over the weekend. She also had some mental status changes and had undergone a computed tomography scan of the brain which was negative and a CTA was also negative. Patient was seen by neurology. They did order an MRI of the brain. There is no evidence of any metastatic disease to the brain. Patient is alert and responding to questions appropriately. She reports about 4 days since her last bowel movement. She denies any chest pain or shortness of breath denies any nausea or vomiting. Denies any burning with urination 07/27/2017 patient denies any chest pain or shortness breath. Denies any nausea or vomiting. Reports having bowel movements. Denies any burning with urination. Telemetry monitoring shows A. fib with a heart rate between 100-120 at times. 07/28/2017 patient is feeling better she is alert and oriented there is no chest pain or shortness of breath no fever or chills no nausea or vomiting no abdominal pain and no urinary symptoms, patient receiving updraft treatment at this time. She denies any complaints. 07/29/2017 patient denies any chest pain or shortness breath. Denies any nausea or vomiting. No abdominal pain no constipation Denies any burning with urination. Telemetry monitoring shows A. fib with a heart rate of 100 patient is alert and oriented 3 in no apparent distress denies any chest pain or shortness breath. Denies any nausea or vomiting no abdominal pain and no urinary symptoms. Telemetry monitoring shows A. fib Objective - Vital Signs Vital signs: Vital Signs Temp 97.0 F L 07/30/17 11:15 Pulse 80 07/30/17 12:03 Resp 18 07/30/17 11:15 BP 163/79 07/30/17 11:15 Pulse Ox 94 L 07/30/17 11:15 Intake & Output 07/29/17 07/30/17 07/30/17 18:59 06:59 18:59 Intake Total 1039.083 180 Output Total 200 1225 Balance 839.083 -1225 180 Weight 99.7 kg 98.6 kg Intake: Intake, IV Titration 199.083 Amount Furosemide 250 mg In 199.083 Sodium Chloride 0.9% 225 ml @ 5 MG/HR 5 mls/hr IVP .Q24H BRITTANI Rx#:[id number] Oral 840 180 Output: Urine 200 1225 Other: Voiding Method Bedside Commode Bedside Commode Bedside Commode # Voids 1 1 1 # Bowel Movements 1 1 - Exam In general patient is alert and oriented 3 in no apparent distress sitting at the edge of bed HEENT without any acute abnormality Neck is supple no JVD no goiter no lymphadenopathy Chest exam reveals a few scattered crackles no wheezing Cardiac exam reveals irregular heart sounds with heart rate 100 no gallops no murmurs Abdomen is soft nontender no organomegaly Extremity exam reveals 2+ edema no cyanosis or clubbing - Labs CBC & Chem 7: 07/28/17 05:37 07/30/17 06:13 Labs: Abnormal Lab Results - Last 24 Hours (Table) 07/29/17 07/29/17 07/30/17 Range/Units 16:40 21:11 06:09 Sodium (137-145) mmol/L Chloride (98-107) mmol/L Carbon Dioxide (22-30) mmol/L BUN (7-17) mg/dL Creatinine (0.52-1.04) mg/dL Glucose (74-99) mg/dL POC Glucose (mg/dL) 113 H 171 H 132 H (75-99) mg/dL 07/30/17 07/30/17 Range/Units 06:13 11:42 Sodium 136 L (137-145) mmol/L Chloride 87 L (98-107) mmol/L Carbon Dioxide 42 H* (22-30) mmol/L BUN 56 H (7-17) mg/dL Creatinine 1.20 H (0.52-1.04) mg/dL Glucose 138 H (74-99) mg/dL POC Glucose (mg/dL) 110 H (75-99) mg/dL Assessment and Plan Assessment: 1. Acute and chronic hypoxic and hypercapnic respiratory failure: multifactorial likely related to COPD exacerbation, atrial fibrillation with rapid ventricular response, CHF exacerbation and bronchitis. CO2 was elevated at 40 yesterday she was given Diamox and CO2 is down to 39 today Will continue to monitor 2. Acute COPD exacerbation patient is been placed on IV Solu-Medrol with bronchodilators. We'll monitor service is following 3. Acute tracheobronchitis: Patient has been started on Rocephin and azithromycin. Pulmonary service following. They have reviewed this chest x- ray and likely left lower lobe changes are chronic. They were present on previous admission in November 2016 and 2009 4. Atrial fibrillation with rapid ventricular response and new onset: Eliquis 5 mg twice a day for anticoagulation and metoprolol for rate control. Cardiology did increase metoprolol to 50 mg daily. Cardiology following. They discontinue the aspirin and Motrin while patient is on Eliquis 5. Acute diastolic CHF exacerbation: started on Lasix drip over the weekend. Echo shows an EF of 55-60%. There is moderate to severe pulmonary hypertension. And a small pericardial effusion. We'll await further cardiology and pulmonary recommendations 6. History of lung cancer status post left lower lobectomy and chemotherapy 7. Diabetes mellitus type 2 with hypoglycemia: On insulin drip due to hyperglycemia from steroids 8. History of coronary artery disease with previous angioplasty and stent placement 9. Altered mental status changes: MRI of the brain so shows no metastatic disease. Neurology is following. Patient did have a code stroke called during the weekend. Computed tomography scan of the brain negative and CTA negative. Symptoms may be related to a metabolic encephalopathy from her acute infection or possibly steroid induced psychosis. States steroids were tapered down over the weekend. Patient appears back at baseline. 10. Constipation start Colace and give lactulose 11. Consult physical therapy to ambulate patient 12. GI prophylaxis Protonix and DVT prophylaxis Eliquis
[2017-07-30 17:02] LABS: Glucose,Whole Blood 133 mg/dL (75-99)
[2017-07-30 20:14] LABS: Glucose,Whole Blood 122 mg/dL (75-99)
[2017-07-30] MEDS: FAMOTIDINE 20 MG TAB PO SCH (20:24)
[2017-07-30] MEDS: ATORVASTATIN 40 MG TAB PO SCH (20:24)
[2017-07-30] MEDS: INSULIN DETEMIR 100 UNIT/ML 10 ML VIAL SQ SCH (20:24)
[2017-07-31] MEDS: INSULIN LISPRO (humaLOG) 300 UNIT/3 ML VIAL SQ SCH ×7 (06:33→20:57)
[2017-07-31 06:39] LABS: Glucose,Whole Blood 51 mg/dL (75-99)
[2017-07-31] MEDS: PANTOPRAZOLE 40 MG TABLET PO SCH ×2 (06:44→17:16)
[2017-07-31 06:45] LABS: Glucose,Whole Blood 61 mg/dL (75-99)
[2017-07-31 07:04] LABS: Glucose,Whole Blood 98 mg/dL (75-99)
[2017-07-31] MEDS: FUROSEMIDE 40 MG TAB PO SCH ×2 (07:49→15:36)
[2017-07-31] MEDS: APIXABAN 5 MG TAB PO SCH ×2 (07:50→20:33)
[2017-07-31] MEDS: predniSONE 20 MG TAB PO SCH (07:50)
[2017-07-31] MEDS: LORATADINE 10 MG TAB PO SCH (07:50)
[2017-07-31] MEDS: GABAPENTIN 400 MG CAP PO SCH ×3 (07:50→20:33)
[2017-07-31] MEDS: SPIRONOLACTONE 25 MG TAB PO SCH (07:50)
[2017-07-31] MEDS: METOPROLOL SUCCINATE (ER) 50 MG TAB.ER.24H PO SCH (07:50)
[2017-07-31] MEDS: CHOLECALCIFEROL 1,000 UNIT TAB PO SCH (07:51)
[2017-07-31] MEDS: CYANOCOBALAMIN 500 MCG TAB PO SCH (07:51)
[2017-07-31] MEDS: LOSARTAN 50 MG TAB PO SCH (07:51)
[2017-07-31] MEDS: AZITHROMYCIN 500 MG TAB PO SCH (07:51)
[2017-07-31] MEDS: DOCUSATE 100 MG CAP PO SCH ×2 (07:52→20:33)
[2017-07-31] MEDS: SYMBICORT 80-4.5 MCG INHALER INHALATION SCH ×2 (08:31→19:22)
[2017-07-31] MEDS: IPRATROPIUM-ALBUTEROL 3 ML NEB INHALATION SCH ×4 (08:31→19:22)
--- NOTE | 2017-07-31 10:21 | P.PN ---
Subjective Progress Note Date: 07/31/17 Principal diagnosis: Acute exacerbation of COPD, congestive heart failure, left lung atelectasis and small left pleural effusion. This is a 71-year-old female patient with past medical history of COPD, lung cancer status post left lower lobectomy with chemoradiation, diabetes mellitus, hypertension, GERD who presented to the emergency room from her PCPs office Dr. Joan Stringer with complaints of increased shortness of breath since yesterday and a mild productive cough with small amount of thick yellow sputum. She denied fever or chills, chest congestion, hemoptysis, or wheezing. She also noted increased swelling in bilateral arms and legs, which is new to her. She denied chest pain or orthopnea. Patient is a remote smoker, with a 25-pack- year history, quit many years ago. Her symptoms also included generalized weakness, which is significantly worse today. When she presented to her PCPs office, she was told she had pneumonia. On presentation to the emergency room patient was found to be in A. fib with RVR with a rate of 120 BPM and hypoxic with O2 sat of 86% on 2 L per nasal cannula. She does wear home O2 at bedtime at 2 L. She was initiated on Cardizem drip for rate control and heparin drip per protocol. She sees Dr. Ledezma for management of her chronic COPD, and she is on Advair 250/50 and albuterol nebulized treatments as well as her rescue inhaler at home. Her last admission for COPD exacerbation and tracheobronchitis was in November 2016. Of note she was also found to be hypoglycemic in the emergency room with a blood sugar of 61, which was treated per hypoglycemia protocol. Patient is on a combination of glimepiride, metformin, NovoLog flex pen and Tresiba insulin at home. Her capillary blood sugar was rechecked after crackers and juice and is now at 74 mg/dL. Patient is awake alert, in no acute distress. On examination her lungs sounds scattered end expiratory wheezes throughout the lung castro with absent lung sounds over left lower lobe. No significant sputum production, no rhonchi. Chest x-ray showed cardiomegaly with prominent central vascularity and prominent interstitium. Left lower lobe density could be related to her history of left lower lung lobectomy. Patient has no leukocytosis, no signs of chest congestion or fever. No chills or night sweats. ProBNP 2680, patient is on Lasix 40 mg every 8 hours per attending. Patient has a history of obstructive sleep apnea for which she wears CPAP device at home but she is unsure of her home settings. Family will be asked to bring the home CPAP unit here. On 07/23/2017 patient is seen in follow-up. She is sleeping sitting up on her bedside table. She denied fever or chills, she denied coughing or any sputum production. Lung sounds are diminished with end expiratory wheezes on forced exhale maneuver. She is wearing 5 L oxygen per nasal cannula with O2 saturations around 90%. Chest x-ray from 07/23/2017 has been reviewed. Showed increased pulmonary vascularity, cardiomegaly, and retrocardiac density. She continues on Cardizem drip at 5 mg per hour, she remains in A. fib with a better controlled rate, around 89 BPM today. Continues on heparin drip for anticoagulation. IV Lasix with mild diuresis, she has a -573 mL balance overnight over the last 24 hours. She continues on IV steroids and on antibiotics in the form of Zithromax and Rocephin. She denies any chest pain. He states her breathing is slightly better today. Her bilateral lower leg edema show slight improvement. On 07/24/2017 the patient is being seen for a follow-up. The patient is still being treated for acute CHF, atrial fibrillation an acute COPD exacerbation. Note that around 3:57 AM in the morning the patient had an event where she woke up confused and disoriented. Code stroke was called and the patient was taken for a CAT scan that showed no acute abnormalities in the head and there was no evidence of any acute or recent territorial infarct. CT angios the brain was also done that showed no vascular abnormalities of occlusion. This lasted only for 15 minutes and the patient recovered. During this time the patient did not have any hypotension, cardiac arrhythmia or hypoglycemia. Note that the patient has obstructive sleep apnea and she has not been using his CPAP machine during her current hospital stay. For now, the patient is still in atrial fibrillation.. Have cardiac rhythm is atrial fibrillation. The patient is still on Lasix drip for diuresis. She is producing adequate amount of urine output. Her COPD exacerbation is also being treated with a combination of DuoNeb nebulized treatments around the clock and IV Solu-Medrol. She is also on examination Rocephin and Zithromax. She is post left lower lobe resection for a previous history of non-small cell lung cancer. She is obese. She still has extensive edema in lower eczematous bilaterally. On 07/25/2017 the patient is being seen for a follow-up. The Lasix drip has been drop down to 5 mg an hour. Still producing adequate amount of urine output. Still on a combination of Rocephin and Zithromax. Chest x-ray from today shows volume loss in the left lower lobe related to a previous left lower lobe resection. No acute abnormalities or airspace disease. Still on DuoNeb nebulized treatments around the clock. Still on IV Solu Medrol 40 mg every 12 hours. No loss in consciousness. No altered mental status. The patient is on long-term anticoagulation with Eliquis On 07/26/2017, patient is doing better, remains on Lasix drip at 5 mg per hour. Adequate urine output is noted, remains on antibiotics including Rocephin and Zithromax for presumptive left lung pneumonia. Patient has mostly left lower lobe atelectasis. And she had a previous lobectomy. Remains on bronchodilators for underlying COPD, and remains on steroids. Overall the patient is doing much better and breathing easier. Continues to have significant swelling in lower extremities in spite of a Lasix drip. CBC was relatively normal basic metabolic profile was normal bicarb is 39 BUN is 57 creatinine is 1.1. Patient was reevaluated today on 07/27/2017, seems to be doing well, relatively asymptomatic, patient is in A. fib with a rate of 100-120, MRI was nondiagnostic. Clinically the patient is feeling better, no cough no wheezing, no fever, no chills, no hemoptysis. The patient was seen again today 07/28/2017 in follow-up on the selective care unit. She is awake and alert in no acute distress. She is sitting up at the bedside. She denies any worsening shortness of breath, cough or congestion. She is maintaining O2 saturations in the low 90s on 4 L/m per nasal cannula. Currently afebrile. Blood cultures reveal no growth. She is still maintained on a Lasix drip at 5 mg per hour. She is currently in a -3 L. She is also on a insulin drip at 3.5 units per hour. Blood glucose 177. The patient is seen again today 07/29/2017 in follow-up on the selective care unit. She is currently awake and alert in no acute distress. She states her breathing is better today as compared to yesterday. Her chest x-ray did reveal improved aeration. She is maintaining good O2 saturations in the mid 90s on 4 L /m per nasal cannula. She remains in a negative balance. She remains on Lasix drip at 5 mg per hour. Creatinine 1.10. Patient was reevaluated today on 07/30/2017, continues to diurese and continues to do well remains on Lasix at 40 mg by mouth every 8 hours. Patient continues to be in a negative fluid balance, and she is feeling much better over the last few days. Her meds and her previous x-rays were reviewed, and I believe at this point patient could be considered for discharge planning once cleared by cardiology for discharge. As a matter of fact patient seems to be slightly on the dry side, BUN is up to 56 creatinine is 1.20, hence the Lasix dose could be cut down to 40 mg by mouth twice a day. I went ahead and cut it down to twice a day instead of 3 times a day. Reevaluated today on 07/31/2017, patient is denying any cough wheezing or shortness of breath. Remains on Lasix, patient remains a negative fluid balance , no labs were noted today, but her labs from yesterday were reviewed, BUN was 56 and creatinine was 1.2. Lasix was cut down to 40 mg by mouth twice a day. I plan to keep the Aldactone at 25 mg daily, and I will cut down the prednisone to 30 mg daily today. Patient remains on bronchodilators for underlying COPD. Objective - Vital Signs Vital signs: Vital Signs Temp 96.4 F L 07/31/17 07:57 Pulse 85 07/31/17 08:41 Resp 20 07/31/17 07:57 BP 157/67 07/31/17 07:57 Pulse Ox 95 07/31/17 08:33 Intake & Output 07/30/17 07/31/17 07/31/17 18:59 06:59 18:59 Intake Total 416 120 534 Balance 416 120 534 Weight 99.5 kg Intake: Oral 416 120 534 Other: Voiding Method Bedside Commode Toilet Toilet # Voids 1 1 # Bowel Movements 1 - Exam GENERAL EXAM: Alert, active, comfortable in no apparent distress. HEAD: Normocephalic. EYES: Normal reaction of pupils, equal size. NOSE: Clear with pink turbinates. THROAT: No erythema or exudates. NECK: No masses, no JVD. CHEST: No chest wall deformity. LUNGS: Equal air entry no crackles nor rhonchi no wheezes, breath sounds slightly diminished at the left base related to previous lobectomy. CVS: S1 and S2 normal with no audible murmur, irregular rhythm. ABDOMEN: No hepatosplenomegaly, normal bowel sounds, no guarding or rigidity. SPINE: No scoliosis or deformity SKIN: No rashes CENTRAL NERVOUS SYSTEM: No focal deficits, tone is normal in all 4 extremities. EXTREMITIES: There is 1+ peripheral edema. No clubbing, no cyanosis. Peripheral pulses are intact. - Labs CBC & Chem 7: 07/28/17 05:37 07/30/17 06:13 Labs: Abnormal Lab Results - Last 24 Hours (Table) 07/30/17 07/30/17 07/30/17 Range/Units 11:42 16:52 20:11 POC Glucose (mg/dL) 110 H 133 H 122 H (75-99) mg/dL 07/31/17 07/31/17 Range/Units 06:22 06:41 POC Glucose (mg/dL) 51 L 61 L (75-99) mg/dL Assessment and Plan Plan: #1. Acute COPD exacerbation with an element of tracheobronchitis, improving as the patient is being treated with a combination of bronchodilators, steroids and antibiotics. #2. Possible Left lower lobe infiltrate suggestive of pneumonia, atelectasis versus effusion in the patient with a history of left lower lung lobectomy for lung cancer. Could represent a chronic finding. Small pleural effusion on the left was difficult to exclude. #3. Acute on chronic hypoxic respiratory failure secondary to COPD exacerbation and an element of congestive heart failure, proBNP is elevated at 2680 pG/mL and increased peripheral edema. 2-D echo results show EF between 55 and 60% with moderate to severe pulmonary hypertension with right ventricular systolic pressure of 57 mmHg. #4. History of lung cancer with left lobectomy and chemotherapy #5. History of coronary artery disease and stent placement, negative troponins 3 #6. Remote nicotine dependence, in remission #7. Underlying history of diabetes mellitus, with hypoglycemia, further episodes of hypoglycemia overnight #8. History of hypertension #9. Gastroesophageal reflux disease #10. Atrial fibrillation, anticoagulated with apixaban. #11. CHF exacerbation with increased lower extremity edema and the patient is currently on Lasix drip at 5 mg an hour #12. Obstructive sleep apnea #13. Episode of confusion which recovered without any residual neurologic deficits Recommendation: Continue Lasix at 40 mg by mouth twice a day, continue Aldactone , decrease prednisone to 30 mg daily, consider discharge planning once cleared by other consultants including nephrology and cardiology on the case. Time with Patient: Less than 30
[2017-07-31 11:50] LABS: Glucose,Whole Blood 100 mg/dL (75-99)
--- NOTE | 2017-07-31 12:07 | P.PN ---
Subjective Progress Note Date: 07/31/17 This is a 71-year-old female, patient of [facility]. She has a known past medical history of lung cancer with a previous left lower lobectomy and chemotherapy, diabetes mellitus, hypertension, coronary artery disease with previous cardiac stent, hyperlipidemia, COPD and bronchitis. Patient states over the last 2 days she's had worsening shortness of breath. She's also been having a mild cough which is productive at times. She has noted to have shortness of breath with walking a short distance. She denies any chest pain, nausea or vomiting, bowel movement changes or urinary symptoms. She denies any fevers chills or sweats. Patient was found to have atrial fibrillation with a rapid ventricular response on admission. Heart rate was 120. She was started on a Cardizem drip and IV heparin. Cardiology has been consulted. Patient was also started on IV Solu-Medrol for an acute COPD exacerbation. Also placed on antibiotics for questionable pneumonia versus bronchitis. She also had evidence of congestive heart failure BNP was elevated 2680. She has some bilateral lower extremity edema with a chest x-ray showing cardiomegaly and to correlate for possible pulmonary venous hypertension and interstitial edema. Patient did receive 1 dose of IV Lasix in the emergency room. Oxygen saturation on admission was at 86% and has gone up to 94% with 3 L. He has also been hypoglycemic with a blood sugar of 55. Patient reports that she has not taken her home medications state or eating anything today. This is likely contributing to patient's low blood sugar. Patient does not have a history of atrial fibrillation. Cardiology and pulmonary service have been consulted. 07/23/2017 patient has noted some improvement in her shortness of breath. However, during her morning shower she still had some shortness of breath. She' s currently on 5 L nasal cannula standing and 90%. Cardiology and pulmonary service are following. She is on IV steroids, IV Lasix and antibiotics. She denies any chest pain. Denies any nausea or vomiting. Reports having regular bowel movement. Denies any difficulty with urinating. 07/26/2017 patient started on a Lasix drip over the weekend. She also had some mental status changes and had undergone a computed tomography scan of the brain which was negative and a CTA was also negative. Patient was seen by neurology. They did order an MRI of the brain. There is no evidence of any metastatic disease to the brain. Patient is alert and responding to questions appropriately. She reports about 4 days since her last bowel movement. She denies any chest pain or shortness of breath denies any nausea or vomiting. Denies any burning with urination 07/27/2017 patient denies any chest pain or shortness breath. Denies any nausea or vomiting. Reports having bowel movements. Denies any burning with urination. Telemetry monitoring shows A. fib with a heart rate between 100-120 at times. 07/28/2017 patient is feeling better she is alert and oriented there is no chest pain or shortness of breath no fever or chills no nausea or vomiting no abdominal pain and no urinary symptoms, patient receiving updraft treatment at this time. She denies any complaints. 07/29/2017 patient denies any chest pain or shortness breath. Denies any nausea or vomiting. No abdominal pain no constipation Denies any burning with urination. Telemetry monitoring shows A. fib with a heart rate of 100 patient is alert and oriented 3 in no apparent distress denies any chest pain or shortness breath. Denies any nausea or vomiting no abdominal pain and no urinary symptoms. Telemetry monitoring shows A. fib 07/31/2017 patient is alert and oriented in no apparent distress he was ambulated without oxygen and her oxygen saturation dropped down significantly. Patient stated that she has a concentrator at home for oxygen but does not have any portable oxygen will make arrangement prior to discharge or portable oxygen. Patient has shortness of breath with activity otherwise she denies any complaints there is no fever or chills no chest pain no palpitation no headache no nausea or vomiting no abdominal pain and no urinary symptoms Objective - Vital Signs Vital signs: Vital Signs Temp 96.8 F L 07/31/17 11:19 Pulse 92 07/31/17 11:54 Resp 20 07/31/17 11:19 BP 129/60 07/31/17 11:19 Pulse Ox 98 07/31/17 11:19 Intake & Output 07/30/17 07/31/17 07/31/17 18:59 06:59 18:59 Intake Total 416 120 534 Output Total 500 Balance 416 120 34 Weight 99.5 kg Intake: Oral 416 120 534 Output: Urine 500 Other: Voiding Method Bedside Commode Toilet Toilet # Voids 1 1 2 # Bowel Movements 1 - Exam In general patient is alert and oriented 3 in no apparent distress sitting at the edge of bed HEENT without any acute abnormality Neck is supple no JVD no goiter no lymphadenopathy Chest exam reveals a few scattered crackles no wheezing Cardiac exam reveals irregular heart sounds with heart rate 100 no gallops no murmurs Abdomen is soft nontender no organomegaly Extremity exam reveals 2+ edema no cyanosis or clubbing - Labs CBC & Chem 7: 07/28/17 05:37 07/30/17 06:13 Labs: Abnormal Lab Results - Last 24 Hours (Table) 07/30/17 07/30/17 07/31/17 Range/Units 16:52 20:11 06:22 POC Glucose (mg/dL) 133 H 122 H 51 L (75-99) mg/dL 07/31/17 07/31/17 Range/Units 06:41 11:44 POC Glucose (mg/dL) 61 L 100 H (75-99) mg/dL Assessment and Plan Assessment: 1. Acute and chronic hypoxic and hypercapnic respiratory failure: multifactorial likely related to COPD exacerbation, atrial fibrillation with rapid ventricular response, CHF exacerbation and bronchitis. CO2 was elevated at 40 yesterday she was given Diamox and CO2 is down to 39 today Will continue to monitor 2. Acute COPD exacerbation patient is been placed on IV Solu-Medrol with bronchodilators. We'll monitor service is following 3. Acute tracheobronchitis: Patient has been started on Rocephin and azithromycin. Pulmonary service following. They have reviewed this chest x- ray and likely left lower lobe changes are chronic. They were present on previous admission in November 2016 and 2009 4. Atrial fibrillation with rapid ventricular response and new onset: Eliquis 5 mg twice a day for anticoagulation and metoprolol for rate control. Cardiology did increase metoprolol to 50 mg daily. Cardiology following. They discontinue the aspirin and Motrin while patient is on Eliquis 5. Acute diastolic CHF exacerbation: started on Lasix drip over the weekend. Echo shows an EF of 55-60%. There is moderate to severe pulmonary hypertension. And a small pericardial effusion. We'll await further cardiology and pulmonary recommendations 6. History of lung cancer status post left lower lobectomy and chemotherapy 7. Diabetes mellitus type 2 with hypoglycemia: On insulin drip due to hyperglycemia from steroids 8. History of coronary artery disease with previous angioplasty and stent placement 9. Altered mental status changes: MRI of the brain so shows no metastatic disease. Neurology is following. Patient did have a code stroke called during the weekend. Computed tomography scan of the brain negative and CTA negative. Symptoms may be related to a metabolic encephalopathy from her acute infection or possibly steroid induced psychosis. States steroids were tapered down over the weekend. Patient appears back at baseline. 10. Constipation start Colace and give lactulose 11. Consult physical therapy to ambulate patient 12. GI prophylaxis Protonix and DVT prophylaxis Eliquis 13. Possible discharge to home on Wednesday patient will need portable oxygen on discharge . She is improving gradually
--- NOTE | 2017-07-31 14:54 | P.PN ---
Subjective Progress Note Date: 07/31/17 Principal diagnosis: shortness of breath This is a pleasant 71-year-old female with history of COPD, lung CA with prior left lower lobectomy, status post chemotherapy and radiation, sleep apnea, hypertension, diabetes, GERD. She presented to the hospital with symptoms of progressively worsening shortness of breath, PND and orthopnea as well as significant peripheral edema that she has noticed for several months. EKG on admission showed patient to be in atrial fibrillation with rapid ventricular response and was initiated and IV heparin. Rei possible pulmonary venous hypertension as well as interstitial edema. Patient has been diuresed. She is currently on Lasix 40 mg by mouth twice a day. She has been started on Eliquis and metoprolol succinate. He is fairly well-controlled. Upon examination, patient is resting comfortably in bed. She denies further complaints of orthopnea. Her breathing is improved. She continues to have some mild lower extremity edema but feels that this is significantly improved. The patient was walked on room air and had significant decrease in oxygen saturation. She is currently being worked up for possible home O2 with anticipated discharge on Wednesday. Objective - Vital Signs Vital signs: Vital Signs Temp 96.8 F L 07/31/17 11:19 Pulse 92 07/31/17 11:54 Resp 20 07/31/17 11:19 BP 129/60 07/31/17 11:19 Pulse Ox 98 07/31/17 11:19 Intake & Output 07/30/17 07/31/17 07/31/17 18:59 06:59 18:59 Intake Total 416 120 652 Output Total 500 Balance 416 120 152 Weight 99.5 kg Intake: Oral 416 120 652 Output: Urine 500 Other: Voiding Method Bedside Commode Toilet Toilet # Voids 1 1 2 # Bowel Movements 1 - Exam PHYSICAL EXAMINATION: HEENT: Head is atraumatic, normocephalic. Pupils equal, round. Neck is supple. There is no elevated jugular venous pressure. HEART EXAMINATION: Heart sounds irregularly irregular, S1 and S2 normal. No murmur or gallop heard. CHEST EXAMINATION: Lungs are clear to auscultation and precussion. No chest wall tenderness is noted on palpation or with deep breathing. ABDOMEN: Soft, nontender. Bowel sounds are heard. No organomegaly noted. EXTREMITIES: 2+ peripheral pulses with evidence of +1 peripheral edema and no calf tenderness noted. NEUROLOGIC patient is awake, alert and oriented x3. . - Labs CBC & Chem 7: 07/28/17 05:37 07/30/17 06:13 Labs: Abnormal Lab Results - Last 24 Hours (Table) 07/30/17 07/30/17 07/31/17 Range/Units 16:52 20:11 06:22 POC Glucose (mg/dL) 133 H 122 H 51 L (75-99) mg/dL 07/31/17 07/31/17 Range/Units 06:41 11:44 POC Glucose (mg/dL) 61 L 100 H (75-99) mg/dL Assessment and Plan Assessment: #1 diastolic congestive heart failure, acute on chronic #2 persistent atrial fibrillation with rapid ventricular response, new onset #3 diabetes #4 hypertension #5 hyperlipidemia #6 sleep apnea #7 COPD exacerbation Plan: From cardiology's perspective, medications were reviewed and we'll continue the same. We anticipate discharge in the next 48 hours. [employer] note has been reviewed, I agree with a documented findings and plan of care. Patient was seen and examined.
[2017-07-31 17:05] LABS: Glucose,Whole Blood 234 mg/dL (75-99)
[2017-07-31] MEDS: FAMOTIDINE 20 MG TAB PO SCH (20:32)
[2017-07-31] MEDS: ATORVASTATIN 40 MG TAB PO SCH (20:33)
[2017-07-31 20:44] LABS: Glucose,Whole Blood 247 mg/dL (75-99)
[2017-07-31] MEDS: INSULIN DETEMIR 100 UNIT/ML 10 ML VIAL SQ SCH (21:00)
[2017-08-01 06:10] LABS: Glucose,Whole Blood 39 mg/dL (75-99)
[2017-08-01] MEDS: INSULIN LISPRO (humaLOG) 300 UNIT/3 ML VIAL SQ SCH ×7 (06:22→20:49)
[2017-08-01 06:25] LABS: Basophils % (A) 0 %; CH 26.2; CHCM 29.8; Eosinophils # (A) 0.1 k/uL (0-0.7); Eosinophils % (A) 1 %; HCT 45.9 % (34.0-46.0); HDW 2.96; HGB 13.4 gm/dL (11.4-16.0); Hypochromasia Marked; Luc # (Auto) 0.11; Luc % (Auto) 1; Lymphocytes # (A) 2.1 k/uL (1.0-4.8); Lymphocytes % (A) 21 %; MCH 25.7 pg (25.0-35.0); MCHC 29.2 g/dL (31.0-37.0); MCV 87.8 fL (80.0-100.0); Mean Platelet Volume 6.9; Monocytes # (A) 0.6 k/uL (0-1.0); Monocytes % (A) 6 %; Neutrophils # (A) 7.2 k/uL (1.3-7.7); Neutrophils % (A) 71 %; RBC 5.23 m/uL (3.80-5.40); RDW 14.1 % (11.5-15.5); WBC 10.2 k/uL (3.8-10.6); WBC (Perox) 10.09
[2017-08-01 06:37] LABS: Glucose,Whole Blood 108 mg/dL (75-99)
[2017-08-01 06:37] LABS: Glucose,Whole Blood 51 mg/dL (75-99)
[2017-08-01 06:46] LABS: ALT 54 U/L (9-52); AST 38 U/L (14-36); Alkaline Phosphatase 44 U/L (38-126); Anion Gap 5 mmol/L; Blood Urea Nitrogen 36 mg/dL (7-17); Calcium 8.9 mg/dL (8.4-10.2); Carbon Dioxide 37 mmol/L (22-30); Chloride 96 mmol/L (98-107); Non-African American GFR(MDRD) >60 (>60 ml/min/1.73 sqM); Potassium 4.3 mmol/L (3.5-5.1); Sodium 138 mmol/L (137-145); Total Bilirubin 0.3 mg/dL (0.2-1.3); Total Protein 5.4 g/dL (6.3-8.2)
[2017-08-01] MEDS: PANTOPRAZOLE 40 MG TABLET PO SCH ×2 (06:49→17:38)
[2017-08-01 06:52] LABS: Glucose 35 mg/dL (74-99)
[2017-08-01] MEDS: SYMBICORT 80-4.5 MCG INHALER INHALATION SCH ×2 (07:40→19:02)
[2017-08-01] MEDS: IPRATROPIUM-ALBUTEROL 3 ML NEB INHALATION SCH ×4 (07:40→19:02)
[2017-08-01] MEDS: CHOLECALCIFEROL 1,000 UNIT TAB PO SCH (08:05)
[2017-08-01] MEDS: SPIRONOLACTONE 25 MG TAB PO SCH (08:06)
[2017-08-01] MEDS: DOCUSATE 100 MG CAP PO SCH ×2 (08:06→20:39)
[2017-08-01] MEDS: GABAPENTIN 400 MG CAP PO SCH ×3 (08:06→20:39)
[2017-08-01] MEDS: LOSARTAN 50 MG TAB PO SCH (08:06)
[2017-08-01] MEDS: predniSONE 10 MG TAB PO SCH (08:06)
[2017-08-01] MEDS: APIXABAN 5 MG TAB PO SCH ×2 (08:06→20:39)
[2017-08-01] MEDS: CYANOCOBALAMIN 500 MCG TAB PO SCH (08:07)
[2017-08-01] MEDS: METOPROLOL SUCCINATE (ER) 50 MG TAB.ER.24H PO SCH (08:07)
[2017-08-01] MEDS: LORATADINE 10 MG TAB PO SCH (08:07)
[2017-08-01] MEDS: AZITHROMYCIN 500 MG TAB PO SCH (08:07)
[2017-08-01] MEDS: FUROSEMIDE 40 MG TAB PO SCH ×2 (08:07→15:57)
--- NOTE | 2017-08-01 10:17 | P.PN ---
Subjective This is a 71-year-old female, patient of [facility]. She has a known past medical history of lung cancer with a previous left lower lobectomy and chemotherapy, diabetes mellitus, hypertension, coronary artery disease with previous cardiac stent, hyperlipidemia, COPD and bronchitis. Patient states over the last 2 days she's had worsening shortness of breath. She's also been having a mild cough which is productive at times. She has noted to have shortness of breath with walking a short distance. She denies any chest pain, nausea or vomiting, bowel movement changes or urinary symptoms. She denies any fevers chills or sweats. Patient was found to have atrial fibrillation with a rapid ventricular response on admission. Heart rate was 120. She was started on a Cardizem drip and IV heparin. Cardiology has been consulted. Patient was also started on IV Solu-Medrol for an acute COPD exacerbation. Also placed on antibiotics for questionable pneumonia versus bronchitis. She also had evidence of congestive heart failure BNP was elevated 2680. She has some bilateral lower extremity edema with a chest x-ray showing cardiomegaly and to correlate for possible pulmonary venous hypertension and interstitial edema. Patient did receive 1 dose of IV Lasix in the emergency room. Oxygen saturation on admission was at 86% and has gone up to 94% with 3 L. He has also been hypoglycemic with a blood sugar of 55. Patient reports that she has not taken her home medications state or eating anything today. This is likely contributing to patient's low blood sugar. Patient does not have a history of atrial fibrillation. Cardiology and pulmonary service have been consulted. 07/23/2017 patient has noted some improvement in her shortness of breath. However, during her morning shower she still had some shortness of breath. She' s currently on 5 L nasal cannula standing and 90%. Cardiology and pulmonary service are following. She is on IV steroids, IV Lasix and antibiotics. She denies any chest pain. Denies any nausea or vomiting. Reports having regular bowel movement. Denies any difficulty with urinating. 07/26/2017 patient started on a Lasix drip over the weekend. She also had some mental status changes and had undergone a computed tomography scan of the brain which was negative and a CTA was also negative. Patient was seen by neurology. They did order an MRI of the brain. There is no evidence of any metastatic disease to the brain. Patient is alert and responding to questions appropriately. She reports about 4 days since her last bowel movement. She denies any chest pain or shortness of breath denies any nausea or vomiting. Denies any burning with urination 07/27/2017 patient denies any chest pain or shortness breath. Denies any nausea or vomiting. Reports having bowel movements. Denies any burning with urination. Telemetry monitoring shows A. fib with a heart rate between 100-120 at times. 07/28/2017 patient is feeling better she is alert and oriented there is no chest pain or shortness of breath no fever or chills no nausea or vomiting no abdominal pain and no urinary symptoms, patient receiving updraft treatment at this time. She denies any complaints. 07/29/2017 patient denies any chest pain or shortness breath. Denies any nausea or vomiting. No abdominal pain no constipation Denies any burning with urination. Telemetry monitoring shows A. fib with a heart rate of 100 patient is alert and oriented 3 in no apparent distress denies any chest pain or shortness breath. Denies any nausea or vomiting no abdominal pain and no urinary symptoms. Telemetry monitoring shows A. fib 07/31/2017 patient is alert and oriented in no apparent distress he was ambulated without oxygen and her oxygen saturation dropped down significantly. Patient stated that she has a concentrator at home for oxygen but does not have any portable oxygen will make arrangement prior to discharge or portable oxygen. Patient has shortness of breath with activity otherwise she denies any complaints there is no fever or chills no chest pain no palpitation no headache no nausea or vomiting no abdominal pain and no urinary symptoms On 08/01/2017 patient is alert and oriented 3 in no apparent distress she is sitting up in bed she is still having shortness of breath with ambulation otherwise no complaints she denies any fever or chills no headache or dizziness no chest pain no palpitation no nausea or vomiting no abdominal pain and no urinary symptoms Objective - Vital Signs Vital signs: Vital Signs Temp 96.9 F L 08/01/17 08:00 Pulse 81 08/01/17 08:00 Resp 18 08/01/17 08:00 BP 140/77 08/01/17 08:00 Pulse Ox 98 08/01/17 08:00 Intake & Output 10/21/17 10/22/17 10/22/17 18:59 06:59 18:59 Intake Total 952 480 Output Total 700 Balance 252 480 Weight 99.2 kg Intake: Oral 952 480 Output: Urine 700 Other: Voiding Method Toilet Toilet Toilet # Voids 1 1 # Bowel Movements 1 - Exam In general patient is alert and oriented 3 in no apparent distress sitting at the edge of bed HEENT without any acute abnormality Neck is supple no JVD no goiter no lymphadenopathy Chest exam reveals a few scattered crackles no wheezing Cardiac exam reveals irregular heart sounds with heart rate 100 no gallops no murmurs Abdomen is soft nontender no organomegaly Extremity exam reveals 2+ edema no cyanosis or clubbing - Labs CBC & Chem 7: 08/01/17 05:45 08/01/17 05:45 Labs: Abnormal Lab Results - Last 24 Hours (Table) 07/31/17 07/31/17 07/31/17 Range/Units 11:44 16:48 20:43 MCHC (31.0-37.0) g/dL Chloride (98-107) mmol/L Carbon Dioxide (22-30) mmol/L BUN (7-17) mg/dL Glucose (74-99) mg/dL POC Glucose (mg/dL) 100 H 234 H 247 H (75-99) mg/dL AST (14-36) U/L ALT (9-52) U/L Total Protein (6.3-8.2) g/dL Albumin (3.5-5.0) g/dL 08/01/17 08/01/17 08/01/17 Range/Units 05:45 05:45 06:03 MCHC 29.2 L (31.0-37.0) g/dL Chloride 96 L (98-107) mmol/L Carbon Dioxide 37 H (22-30) mmol/L BUN 36 H (7-17) mg/dL Glucose 35 L* (74-99) mg/dL POC Glucose (mg/dL) 39 L (75-99) mg/dL AST 38 H (14-36) U/L ALT 54 H (9-52) U/L Total Protein 5.4 L (6.3-8.2) g/dL Albumin 2.9 L (3.5-5.0) g/dL 08/01/17 08/01/17 Range/Units 06:18 06:33 MCHC (31.0-37.0) g/dL Chloride (98-107) mmol/L Carbon Dioxide (22-30) mmol/L BUN (7-17) mg/dL Glucose (74-99) mg/dL POC Glucose (mg/dL) 51 L 108 H (75-99) mg/dL AST (14-36) U/L ALT (9-52) U/L Total Protein (6.3-8.2) g/dL Albumin (3.5-5.0) g/dL Assessment and Plan Assessment: 1. Acute and chronic hypoxic and hypercapnic respiratory failure: multifactorial likely related to COPD exacerbation, atrial fibrillation with rapid ventricular response, CHF exacerbation and bronchitis. 2. Acute COPD exacerbation patient is been placed on IV Solu-Medrol with bronchodilators. We'll monitor service is following 3. Acute tracheobronchitis: Patient has been started on Rocephin and azithromycin. Pulmonary service following. They have reviewed this chest x- ray and likely left lower lobe changes are chronic. They were present on previous admission in November 2016 and 2009 4. Atrial fibrillation with rapid ventricular response and new onset: Eliquis 5 mg twice a day for anticoagulation and metoprolol for rate control. Cardiology did increase metoprolol to 50 mg daily. Cardiology following. They discontinue the aspirin and Motrin while patient is on Eliquis 5. Acute diastolic CHF exacerbation: started on Lasix drip over the weekend. Echo shows an EF of 55-60%. There is moderate to severe pulmonary hypertension. And a small pericardial effusion. We'll await further cardiology and pulmonary recommendations 6. History of lung cancer status post left lower lobectomy and chemotherapy 7. Diabetes mellitus type 2 with hypoglycemia: On insulin drip due to hyperglycemia from steroids 8. History of coronary artery disease with previous angioplasty and stent placement 9. Altered mental status changes: MRI of the brain so shows no metastatic disease. Neurology is following. Patient did have a code stroke called during the weekend. Computed tomography scan of the brain negative and CTA negative. Symptoms may be related to a metabolic encephalopathy from her acute infection or possibly steroid induced psychosis. States steroids were tapered down over the weekend. Patient appears back at baseline. 10. Constipation start Colace and give lactulose 11. Consult physical therapy to ambulate patient 12. GI prophylaxis Protonix and DVT prophylaxis Eliquis 13. Possible discharge to home on Wednesday patient will need portable oxygen on discharge . She is improving gradually
[2017-08-01] MEDS ORDERED: INSULIN DETEMIR 100 UNIT/ML 10 ML VIAL SQ SCH ×2 (11:30→21:00)
[2017-08-01 11:41] LABS: Glucose,Whole Blood 91 mg/dL (75-99)
--- NOTE | 2017-08-01 14:19 | P.PN ---
Subjective Progress Note Date: 08/01/17 Principal diagnosis: Shortness of breath This is a pleasant 71-year-old female with history of COPD, lung CA with prior left lower lobectomy, status post chemotherapy and radiation, sleep apnea, hypertension, diabetes, GERD, who presented to the hospital with symptoms of progressively worsening shortness of breath. Positive PND and orthopnea. Patient also has significant amount of peripheral edema which she states that she has had for several months. Prior history of smoking. On presentation here EKG showed atrial fibrillation with a rapid ventricular response, was initiated on IV Cardizem drip. According to the patient, she has never been told in the past to have atrial fibrillation or congestive cardiac failure. She does not see a grinding room inspector in the office. Chest x-ray on admission revealed cardiomegaly and possible pulmonary venous hypertension as well as interstitial edema. Possible left lower lobe atelectasis versus pneumonia. Echocardiogram with Doppler study was performed which revealed a small pericardial effusion moderate concentric LVH, ejection fraction 55-60%. Moderate to severe pulmonary hypertension. Repeat chest x-ray this morning shows persistence in interstitial edema, possible pneumonia, small effusion. Blood pressure on arrival 172/80, heart rate 120, 91% on 4 L of oxygen with a temperature of 99.1. Today she is afebrile, blood pressure 126/50, heart rate 90, 92% on 5 L of oxygen. White blood cell count 5.7, hemoglobin 12.3, platelet count 193. Sodium 136, potassium 4.8, BUN 28, creatinine 0.7. Troponin 0.019, 0.030, 0.017. BNP level 2680. was initiated on IV Lasix in the emergency room, she is on 40 mg IV every 8 hour. Patient is diuresing from the IV Lasix, small amounts. Patient does state this morning that her breathing is somewhat improved, however continues to feel significantly short of breath, continues to have significant bilateral peripheral edema and abdominal swelling. 07/24/2017 Patient was initiated on IV Lasix drip diuresed well through the night last night, weight is down 2 kg today. We also initiated the patient on Eliquis 5 mg one tablet by mouth twice a day for anticoagulation, she is covered for this medication. 07/25/2017 10 seen and examined this morning, continues to diurese well, patient states she feels better better every day, continues to have significant edema. Weight is down 2 kg today, creatinine 1.3, blood pressure 40/90, heart rate in the 90s. We will continue current medications and increase her metoprolol tartrate 50 daily. 07/27/2017 Patient seen and examined this morning, continues to diurese well. Feeling much better overall. We will continue current dose of IV Lasix drip. Check lytes BUN and creatinine in the morning. 07/28/2017 She continues to be on Lasix drip at 5 mg per hour, continues to diurese well. Creatinine 1.1 07/29 2017 Patient seen and examined today, weight down 1 kg. She has been up ambulating in the hallway today overall doing significantly better. IV Lasix drip was discontinued and patient has been started on oral diuretics. 08/01/2017 Patient seen and examined this morning, feeling well overall. Anticipating discharge home tomorrow. Objective - Vital Signs Vital signs: Vital Signs Temp 97.0 F L 08/01/17 11:22 Pulse 80 08/01/17 11:22 Resp 18 08/01/17 11:22 BP 135/85 08/01/17 11:22 Pulse Ox 95 08/01/17 11:22 Intake & Output 07/31/17 08/01/17 08/01/17 18:59 06:59 18:59 Intake Total 952 480 Output Total 700 Balance 252 480 Weight 99.2 kg Intake: Oral 952 480 Output: Urine 700 Other: Voiding Method Toilet Toilet Toilet # Voids 1 1 # Bowel Movements 1 - Exam PHYSICAL EXAMINATION: HEENT: Head is atraumatic, normocephalic. Pupils equal, round. Neck is supple. There is elevated jugular venous pressure. HEART EXAMINATION: S1 and S2 irregularly irregular CHEST EXAMINATION: And's reveal scattered coarse rhonchi with rales to bilateral bases and diminished air entry to the bases. ABDOMEN: Soft,, firm, distended. Bowel sounds are heard. No organomegaly noted. EXTREMITIES: 2+ peripheral pulses with 1+ evidence of peripheral edema and no calf tenderness noted. NEUROLOGIC patient is awake, alert and oriented -3. - Labs CBC & Chem 7: 08/01/17 05:45 08/01/17 05:45 Labs: Abnormal Lab Results - Last 24 Hours (Table) 07/31/17 07/31/17 08/01/17 Range/Units 16:48 20:43 05:45 MCHC 29.2 L (31.0-37.0) g/dL Chloride (98-107) mmol/L Carbon Dioxide (22-30) mmol/L BUN (7-17) mg/dL Glucose (74-99) mg/dL POC Glucose (mg/dL) 234 H 247 H (75-99) mg/dL AST (14-36) U/L ALT (9-52) U/L Total Protein (6.3-8.2) g/dL Albumin (3.5-5.0) g/dL 08/01/17 08/01/17 08/01/17 Range/Units 05:45 06:03 06:18 MCHC (31.0-37.0) g/dL Chloride 96 L (98-107) mmol/L Carbon Dioxide 37 H (22-30) mmol/L BUN 36 H (7-17) mg/dL Glucose 35 L* (74-99) mg/dL POC Glucose (mg/dL) 39 L 51 L (75-99) mg/dL AST 38 H (14-36) U/L ALT 54 H (9-52) U/L Total Protein 5.4 L (6.3-8.2) g/dL Albumin 2.9 L (3.5-5.0) g/dL 08/01/17 Range/Units 06:33 MCHC (31.0-37.0) g/dL Chloride (98-107) mmol/L Carbon Dioxide (22-30) mmol/L BUN (7-17) mg/dL Glucose (74-99) mg/dL POC Glucose (mg/dL) 108 H (75-99) mg/dL AST (14-36) U/L ALT (9-52) U/L Total Protein (6.3-8.2) g/dL Albumin (3.5-5.0) g/dL Assessment and Plan Plan: Assessment and plan #1 diastolic congestive heart failure acute on chronic #2 atrial fibrillation with rapid ventricular response, appears to be of new onset. #3 exacerbation of COPD #4 history of lung cancer status post left lower lobectomy and chemotherapy with radiation #5 diabetes #6 hypertension #7 hyperlipidemia #8 sleep apnea Plan From cardiology's perspective, we'll continue current medications. Patient afebrile to discharge home tomorrow from cardiology standpoint to follow-up in the office post discharge. DNP note has been reviewed, I agree with a documented findings and plan of care. Patient was seen and examined.
[2017-08-01 16:54] LABS: Glucose,Whole Blood 104 mg/dL (75-99)
[2017-08-01] MEDS: ATORVASTATIN 40 MG TAB PO SCH (20:39)
[2017-08-01] MEDS: FAMOTIDINE 20 MG TAB PO SCH (20:39)
[2017-08-01 20:55] LABS: Glucose,Whole Blood 211 mg/dL (75-99)
[2017-08-02 05:45] LABS: Glucose,Whole Blood 157 mg/dL (75-99)
[2017-08-02 05:58] LABS: Basophils % (A) 0 %; CH 25.9; CHCM 29.8; Eosinophils # (A) 0.1 k/uL (0-0.7); Eosinophils % (A) 1 %; HCT 42.2 % (34.0-46.0); HDW 2.94; HGB 12.7 gm/dL (11.4-16.0); Hypochromasia Marked; Luc # (Auto) 0.09; Luc % (Auto) 1; Lymphocytes # (A) 1.9 k/uL (1.0-4.8); Lymphocytes % (A) 21 %; MCH 26.2 pg (25.0-35.0); MCV 87.2 fL (80.0-100.0); Mean Platelet Volume 6.7; Monocytes # (A) 0.5 k/uL (0-1.0); Monocytes % (A) 6 %; Neutrophils # (A) 6.4 k/uL (1.3-7.7); Neutrophils % (A) 72 %; RBC 4.84 m/uL (3.80-5.40); RDW 13.9 % (11.5-15.5); WBC 8.9 k/uL (3.8-10.6); WBC (Perox) 9.18
[2017-08-02 06:28] LABS: ALT 59 U/L (9-52); AST 35 U/L (14-36); Alkaline Phosphatase 49 U/L (38-126); Anion Gap 5 mmol/L; Blood Urea Nitrogen 31 mg/dL (7-17); Calcium 8.3 mg/dL (8.4-10.2); Carbon Dioxide 36 mmol/L (22-30); Chloride 94 mmol/L (98-107); Glucose 168 mg/dL (74-99); Non-African American GFR(MDRD) >60 (>60 ml/min/1.73 sqM); Potassium 4.3 mmol/L (3.5-5.1); Sodium 135 mmol/L (137-145); Total Bilirubin 0.2 mg/dL (0.2-1.3); Total Protein 5.1 g/dL (6.3-8.2)
[2017-08-02] MEDS: INSULIN LISPRO (humaLOG) 300 UNIT/3 ML VIAL SQ SCH ×4 (07:12→12:22)
[2017-08-02] MEDS: PANTOPRAZOLE 40 MG TABLET PO SCH (07:16)
[2017-08-02] MEDS: IPRATROPIUM-ALBUTEROL 3 ML NEB INHALATION SCH ×3 (07:23→15:40)
[2017-08-02] MEDS: SYMBICORT 80-4.5 MCG INHALER INHALATION SCH (07:23)
[2017-08-02] MEDS: SPIRONOLACTONE 25 MG TAB PO SCH (08:43)
[2017-08-02] MEDS: FUROSEMIDE 40 MG TAB PO SCH ×2 (08:43→15:09)
[2017-08-02] MEDS: CHOLECALCIFEROL 1,000 UNIT TAB PO SCH (08:43)
[2017-08-02] MEDS: GABAPENTIN 400 MG CAP PO SCH ×2 (08:43→15:09)
[2017-08-02] MEDS: LORATADINE 10 MG TAB PO SCH (08:44)
[2017-08-02] MEDS: predniSONE 10 MG TAB PO SCH (08:44)
[2017-08-02] MEDS: DOCUSATE 100 MG CAP PO SCH (08:44)
[2017-08-02] MEDS: METOPROLOL SUCCINATE (ER) 50 MG TAB.ER.24H PO SCH (08:44)
[2017-08-02] MEDS: APIXABAN 5 MG TAB PO SCH (08:44)
[2017-08-02] MEDS: AZITHROMYCIN 500 MG TAB PO SCH (08:44)
[2017-08-02] MEDS: LOSARTAN 50 MG TAB PO SCH (08:44)
[2017-08-02] MEDS: CYANOCOBALAMIN 500 MCG TAB PO SCH (08:44)
[2017-08-02 11:36] VITALS: PULSE 91; RESP 20
[2017-08-02 12:01] LABS: Glucose,Whole Blood 121 mg/dL (75-99)
--- NOTE | 2017-08-02 12:48 | P.DS ---
Providers Date of admission: 07/22/17 13:30 Expected date of discharge: 08/02/17 Attending physician: Ramonita Sorenson Consults: 07/22/17 13:32 Consult Physician Urgent Consulting Provider: Kulwant Arguello Consult Reason/Comments: dyspnea Do you want consulting provider notified?: Yes 07/22/17 13:33 Consult Physician Urgent Consulting Provider: Syeda Pichardo Consult Reason/Comments: a fib, chf Do you want consulting provider notified?: Yes 07/24/17 07:16 Consult Physician Urgent Consulting Provider: Anthony Del Real Consult Reason/Comments: Confusion Do you want consulting provider notified?: Yes Primary care physician: Mariaa Chery Hospital Course: Discharge diagnosis 1. Acute and chronic hypoxic and hypercapnic respiratory failure: multifactorial likely related to COPD exacerbation, atrial fibrillation with rapid ventricular response, CHF exacerbation and bronchitis. 2. Acute COPD exacerbation patient is been placed on IV Solu-Medrol with bronchodilators. We'll monitor service is following 3. Acute tracheobronchitis: Patient has been started on Rocephin and azithromycin. Pulmonary service following. They have reviewed this chest x- ray and likely left lower lobe changes are chronic. They were present on previous admission in November 2016 and 2009 4. Persistent Atrial fibrillation with an episode of rapid ventricular response on admission: A. fib new onset on this admission. Eliquis 5 mg twice a day for anticoagulation and metoprolol for rate control. Cardiology did increase metoprolol to 50 mg daily. Cardiology following. They discontinue the aspirin and Motrin while patient is on Eliquis 5. Acute diastolic CHF exacerbation: started on Lasix drip over the weekend. Echo shows an EF of 55-60%. There is moderate to severe pulmonary hypertension. And a small pericardial effusion. Evaluated by cardiology service. She was switched over to oral Lasix and tolerated well. Aldactone was added. 6. History of lung cancer status post left lower lobectomy and chemotherapy 7. Diabetes mellitus type 2 with hypoglycemia: On insulin drip due to hyperglycemia from steroids. Blood sugars have improved. She will be discharged home on her home dosage of her insulin and hypoglycemic meds 8. History of coronary artery disease with previous angioplasty and stent placement 9. Altered mental status changes: MRI of the brain so shows no metastatic disease. Neurology is following. Patient did have a code stroke called during the weekend. Computed tomography scan of the brain negative and CTA negative. Symptoms may be related to a metabolic encephalopathy from her acute infection or possibly steroid induced psychosis. States steroids were tapered down over the weekend. Patient appears back at baseline. 10. Constipation start Colace and give lactulose 11. Consult physical therapy to ambulate patient 12. GI prophylaxis Protonix and DVT prophylaxis [facility] course This is a 71-year-old female, patient of [facility]. She has a known past medical history of lung cancer with a previous left lower lobectomy and chemotherapy, diabetes mellitus, hypertension, coronary artery disease with previous cardiac stent, hyperlipidemia, COPD and bronchitis. Patient states over the last 2 days she's had worsening shortness of breath. She's also been having a mild cough which is productive at times. She has noted to have shortness of breath with walking a short distance. She denies any chest pain, nausea or vomiting, bowel movement changes or urinary symptoms. She denies any fevers chills or sweats. Patient was found to have atrial fibrillation with a rapid ventricular response on admission. Heart rate was 120. She was started on a Cardizem drip and IV heparin. Cardiology has been consulted. Patient was also started on IV Solu-Medrol for an acute COPD exacerbation. Also placed on antibiotics for questionable pneumonia versus bronchitis. She also had evidence of congestive heart failure BNP was elevated 2680. She has some bilateral lower extremity edema with a chest x-ray showing cardiomegaly and to correlate for possible pulmonary venous hypertension and interstitial edema. Patient did receive 1 dose of IV Lasix in the emergency room. Oxygen saturation on admission was at 86% and has gone up to 94% with 3 L. He has also been hypoglycemic with a blood sugar of 55. Patient reports that she has not taken her home medications state or eating anything today. This is likely contributing to patient's low blood sugar. Patient does not have a history of atrial fibrillation. Cardiology and pulmonary service have been consulted. Patient was seen evaluated by both cardiology and pulmonary services. She required to be placed on a Lasix drip during this admission. She tolerated being weaned off of the Lasix drip and starting on oral Lasix. Her breathing has shown improvement. She's also treated for an acute COPD exacerbation improved colitis. She completed antibiotics here in the hospital. She is a few days left on her prednisone taper. Pulmonary service has added metoprolol 50 mg daily for better rate control for her A. fib. The A. fib was on new onset during this admission. She's been placed on Eliquis for anticoagulation. There $0 co-pay. For her CHF exacerbation they've increased the Lasix to 40 mg twice a day and added Aldactone. Patient's symptoms have improved greatly. She will follow-up with consulting physicians outpatient. Patient is medical stable for discharge. Please refer to chart for any further details. I performed an examination of the patient and discussed their management with the physician Oven Stripper. I have reviewed the Physician Oven Stripper's notes and agree with the documented findings and plan of care Patient Condition at Discharge: Stable Plan - Discharge Summary Discharge Rx Participant: No New Discharge Prescriptions: New Apixaban [Eliquis] 5 mg PO BID #60 tab Furosemide [Lasix] 40 mg PO BID@0900,1600 #60 tab Losartan [Cozaar] 100 mg PO DAILY #30 tab Metoprolol Succinate (ER) [Toprol XL] 50 mg PO DAILY #60 tab.er.24h predniSONE 10 mg PO DAILY #6 tab Spironolactone [Aldactone] 25 mg PO DAILY #30 tab Continue Omeprazole 20 mg PO BID Insulin Aspart [NovoLOG Flexpen] 20 units SQ AC-TID Insulin Degludec [Tresiba Flextouch U-200] 98 unit SQ DAILY Meloxicam [Mobic] 7.5 - 15 mg PO HS Fluticasone/Salmeterol [Advair 250-50 Diskus] 1 puff INHALATION RT-BID Cyanocobalamin [Vitamin B-12] 500 mcg PO DAILY Cholecalciferol [Vitamin D3] 4,000 unit PO DAILY Nizatidine [Axid] 150 mg PO HS Atorvastatin [Lipitor] 40 mg PO HS Glimepiride [Amaryl] 4 mg PO AC-BID Gabapentin 800 mg PO TID metFORMIN HCL [Glucophage] 500 mg PO BID Loratadine [Claritin] 10 mg PO DAILY Albuterol Nebulized [Ventolin Nebulized] 2.5 mg INHALATION RT-QID Albuterol Inhaler [Ventolin Hfa Inhaler] 1 puff INHALATION RT-Q4H PRN PRN Reason: Shortness Of Breath Discontinued Metoprolol Succinate [Toprol XL] 25 mg PO DAILY Losartan/Hydrochlorothiazide [Losartan-Hctz 100-12.5 mg Tab] 1 tab PO DAILY Furosemide [Lasix] 20 mg PO DAILY Discharge Medication List Atorvastatin [Lipitor] 40 mg PO HS 11/17/16 [History] Cholecalciferol [Vitamin D3] 4,000 unit PO DAILY 11/17/16 [History] Cyanocobalamin [Vitamin B-12] 500 mcg PO DAILY 11/17/16 [History] Fluticasone/Salmeterol [Advair 250-50 Diskus] 1 puff INHALATION RT-BID 11/17/16 [History] Gabapentin 800 mg PO TID 11/17/16 [History] Glimepiride [Amaryl] 4 mg PO AC-BID 11/17/16 [History] Insulin Aspart [NovoLOG Flexpen] 20 units SQ AC-TID 11/17/16 [History] Insulin Degludec [Tresiba Flextouch U-200] 98 unit SQ DAILY 11/17/16 [History] Meloxicam [Mobic] 7.5 - 15 mg PO HS 11/17/16 [History] Nizatidine [Axid] 150 mg PO HS 11/17/16 [History] Omeprazole 20 mg PO BID 11/17/16 [History] Albuterol Inhaler [Ventolin Hfa Inhaler] 1 puff INHALATION RT-Q4H PRN 07/22/17 [ History] Albuterol Nebulized [Ventolin Nebulized] 2.5 mg INHALATION RT-QID 07/22/17 [ History] Loratadine [Claritin] 10 mg PO DAILY 07/22/17 [History] metFORMIN HCL [Glucophage] 500 mg PO BID 07/22/17 [History] Apixaban [Eliquis] 5 mg PO BID #60 tab 08/02/17 [Rx] Furosemide [Lasix] 40 mg PO BID@0900,1600 #60 tab 08/02/17 [Rx] Losartan [Cozaar] 100 mg PO DAILY #30 tab 08/02/17 [Rx] Metoprolol Succinate (ER) [Toprol XL] 50 mg PO DAILY #60 tab.er.24h 08/02/17 [Rx ] Spironolactone [Aldactone] 25 mg PO DAILY #30 tab 08/02/17 [Rx] predniSONE 10 mg PO DAILY #6 tab 08/02/17 [Rx] Follow up Appointment(s)/Referral(s): Melania Stringer PAC [REFERRING] - 1 Week [facility], [NON-STAFF] - Mariaa Chery DO [Primary Care Provider] - 1 Week Rodriguez Jean MD [STAFF PHYSICIAN] - 1 Week Kulwatn Arguello MD [STAFF PHYSICIAN] - 1 Week Patient Instructions/Handouts: A-fib (Atrial Fibrillation) (DC), COPD (Chronic Obstructive Pulmonary Disease) (DC) Activity/Diet/Wound Care/Special Instructions: morning follow up appointments please has a c pap at home, does not have oxygen *public message service supervisor script for Eliquis from [facility] at time of discharge - $0 copay* Diet: cardiac, diabetic Activity: as tolerated Discharge Disposition: HOME WITH HOME HEALTH SERVICES
[2017-08-02 15:01] VITALS: BP 149/80; TEMP 97
--- NOTE | 2017-08-02 15:29 | P.PN ---
Subjective Progress Note Date: 08/02/17 Principal diagnosis: Shortness of breath This is a pleasant 71-year-old female with history of COPD, lung CA with prior left lower lobectomy, status post chemotherapy and radiation, sleep apnea, hypertension, diabetes, GERD, who presented to the hospital with symptoms of progressively worsening shortness of breath. Positive PND and orthopnea. Patient also has significant amount of peripheral edema which she states that she has had for several months. Prior history of smoking. On presentation here EKG showed atrial fibrillation with a rapid ventricular response, was initiated on IV Cardizem drip. According to the patient, she has never been told in the past to have atrial fibrillation or congestive cardiac failure. 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 Chest x-ray on admission revealed cardiomegaly and possible pulmonary venous hypertension as well as interstitial edema. Possible left lower lobe atelectasis versus pneumonia. Echocardiogram with Doppler study was performed which revealed a small pericardial effusion moderate concentric LVH, ejection fraction 55-60%. Moderate to severe pulmonary hypertension. Repeat chest x-ray this morning shows persistence in interstitial edema, possible pneumonia, small effusion. Blood pressure on arrival 172/80, heart rate 120, 91% on 4 L of oxygen with a temperature of 99.1. Today she is afebrile, blood pressure 126/50, heart rate 90, 92% on 5 L of oxygen. White blood cell count 5.7, hemoglobin 12.3, platelet count 193. Sodium 136, potassium 4.8, BUN 28, creatinine 0.7. Troponin 0.019, 0.030, 0.017. BNP level 2680. was initiated on IV Lasix in the emergency room, she is on 40 mg IV every 8 hour. Patient is diuresing from the IV Lasix, small amounts. Patient does state this morning that her breathing is somewhat improved, however continues to feel significantly short of breath, continues to have significant bilateral peripheral edema and abdominal swelling. 07/24/2017 Patient was initiated on IV Lasix drip diuresed well through the night last night, weight is down 2 kg today. We also initiated the patient on Eliquis 5 mg one tablet by mouth twice a day for anticoagulation, she is covered for this medication. 07/25/2017 10 seen and examined this morning, continues to diurese well, patient states she feels better better every day, continues to have significant edema. Weight is down 2 kg today, creatinine 1.3, blood pressure 40/90, heart rate in the 90s. We will continue current medications and increase her metoprolol tartrate 50 daily. 07/27/2017 Patient seen and examined this morning, continues to diurese well. Feeling much better overall. We will continue current dose of IV Lasix drip. Check lytes BUN and creatinine in the morning. 07/28/2017 She continues to be on Lasix drip at 5 mg per hour, continues to diurese well. Creatinine 1.1 07/29 2017 Patient seen and examined today, weight down 1 kg. She has been up ambulating in the hallway today overall doing significantly better. IV Lasix drip was discontinued and patient has been started on oral diuretics. 08/01/2017 Patient seen and examined this morning, feeling well overall. Anticipating discharge home tomorrow. 08/02/2017 Patient seen and examined this morning, anticipating discharge home today. Blood pressure 138/80 with a heart rate in the 90s. Objective - Vital Signs Vital signs: Vital Signs Temp 97.0 F L 08/02/17 15:00 Pulse 91 08/02/17 15:02 Resp 20 08/02/17 15:02 BP 149/80 08/02/17 15:00 Pulse Ox 97 08/02/17 15:00 Intake & Output 08/01/17 08/02/17 08/02/17 18:59 06:59 18:59 Intake Total 1450 380 Output Total 450 2025 1430 Balance 1000 -2025 -1050 Weight 100.2 kg Intake: Oral 1450 380 Output: Urine 450 202 1430 Other: Voiding Method Toilet Toilet Toilet # Voids 1 1 4 # Bowel Movements 1 - Exam PHYSICAL EXAMINATION: HEENT: Head is atraumatic, normocephalic. Pupils equal, round. Neck is supple. There is elevated jugular venous pressure. HEART EXAMINATION: S1 and S2 irregularly irregular CHEST EXAMINATION: And's reveal scattered coarse rhonchi with rales to bilateral bases and diminished air entry to the bases. ABDOMEN: Soft,, firm, distended. Bowel sounds are heard. No organomegaly noted. EXTREMITIES: 2+ peripheral pulses with 1+ evidence of peripheral edema and no calf tenderness noted. NEUROLOGIC patient is awake, alert and oriented -3. - Labs CBC & Chem 7: 08/02/17 05:35 08/02/17 05:35 Labs: Abnormal Lab Results - Last 24 Hours (Table) 08/01/17 08/01/17 08/02/17 Range/Units 16:30 20:54 05:35 MCHC 30.0 L (31.0-37.0) g/dL Plt Count 149 L (150-450) k/uL Sodium (137-145) mmol/L Chloride (98-107) mmol/L Carbon Dioxide (22-30) mmol/L BUN (7-17) mg/dL Glucose (74-99) mg/dL POC Glucose (mg/dL) 104 H 211 H (75-99) mg/dL Calcium (8.4-10.2) mg/dL ALT (9-52) U/L Total Protein (6.3-8.2) g/dL Albumin (3.5-5.0) g/dL 08/02/17 08/02/17 08/02/17 Range/Units 05:35 05:42 11:56 MCHC (31.0-37.0) g/dL Plt Count (150-450) k/uL Sodium 135 L (137-145) mmol/L Chloride 94 L (98-107) mmol/L Carbon Dioxide 36 H (22-30) mmol/L BUN 31 H (7-17) mg/dL Glucose 168 H (74-99) mg/dL POC Glucose (mg/dL) 157 H 121 H (75-99) mg/dL Calcium 8.3 L (8.4-10.2) mg/dL ALT 59 H (9-52) U/L Total Protein 5.1 L (6.3-8.2) g/dL Albumin 2.6 L (3.5-5.0) g/dL Assessment and Plan Plan: Assessment and plan #1 diastolic congestive heart failure acute on chronic #2 atrial fibrillation with rapid ventricular response, appears to be of new onset. #3 exacerbation of COPD #4 history of lung cancer status post left lower lobectomy and chemotherapy with radiation #5 diabetes #6 hypertension #7 hyperlipidemia #8 sleep apnea Plan From cardiology's perspective, we'll continue current medications. Patient stable to discharge home today from cardiology standpoint to follow-up in the office post discharge. DNP note has been reviewed, I agree with a documented findings and plan of care. Patient was seen and examined.
== END 2017-08-02 16:10 | disposition home health service (06) | DRG 291 ==
LOC: EC 12:01 → 6SEL 13:30
PROVIDERS: ADMIT Internal Medicine; ATTEND Internal Medicine
DX: I11.0 Hypertensive heart disease with heart failure (principal); J96.21 Acute and chronic respiratory failure with hypoxia; G93.41 Metabolic encephalopathy; E11.649 Type 2 diabetes mellitus with hypoglycemia without coma; I48.1 Persistent atrial fibrillation; J44.0 Chronic obstructive pulmonary disease with (acute) lower respiratory infection; J96.22 Acute and chronic respiratory failure with hypercapnia; I31.3 Pericardial effusion (noninflammatory); J44.1 Chronic obstructive pulmonary disease with (acute) exacerbation; J98.11 Atelectasis; I27.20 Pulmonary hypertension, unspecified; J20.9 Acute bronchitis, unspecified; E11.65 Type 2 diabetes mellitus with hyperglycemia; I50.33 Acute on chronic diastolic (congestive) heart failure; G47.33 Obstructive sleep apnea (adult) (pediatric); E66.9 Obesity, unspecified; I25.10 Atherosclerotic heart disease of native coronary artery without angina pectoris; E78.5 Hyperlipidemia, unspecified; K21.9 Gastro-esophageal reflux disease without esophagitis; K59.00 Constipation, unspecified; T38.0X5A Adverse effect of glucocorticoids and synthetic analogues, initial encounter; L30.9 Dermatitis, unspecified; F29 Unspecified psychosis not due to a substance or known physiological condition; Z79.1 Long term (current) use of non-steroidal anti-inflammatories (NSAID); Z99.81 Dependence on supplemental oxygen; Z79.4 Long term (current) use of insulin; Z79.51 Long term (current) use of inhaled steroids; Z79.899 Other long term (current) drug therapy; Z85.118 Personal history of other malignant neoplasm of bronchus and lung; Z87.891 Personal history of nicotine dependence; Z95.5 Presence of coronary angioplasty implant and graft; Z90.2 Acquired absence of lung [part of]; Z92.21 Personal history of antineoplastic chemotherapy; Z88.5 Allergy status to narcotic agent; Z92.3 Personal history of irradiation; Z86.61 Personal history of infections of the central nervous system
CPT/HCPCS: 36415; 70450; 70496; 70498; 70553; 71010; 71020; 80048; 80053; 82550; 82553; 83036; 83605; 83735; 83880; 84484; 85025; 85610; 85730; 87040; 93005; 93306; 94640; 94660; 94760; 95819; 96365; 96368; 96374; 96375; 96376; 99291

== ENCOUNTER 2017-12-31 19:06 | Inpatient (IN) | payer MEDICARE ==
[2017-12-31 20:08] LABS: Glucose,Whole Blood 72 mg/dL (75-99)
[2017-12-31] MEDS ORDERED: SODIUM CHLORIDE 0.9% 1,000 ML IV STA ×2 (20:11→22:02)
[2017-12-31] MEDS ORDERED: RX INFO: IV CONTRAST WAS GIVEN 1 EACH MISC MISCELLANE PRN (20:14)
[2017-12-31] MEDS ORDERED: MORPHINE SULFATE 4 MG/ML SYRINGE IVP STA ×2 (20:14→22:01)
[2017-12-31] MEDS ORDERED: DIAZEPAM 5 MG/ML 2 ML INJ IVP STA (20:14)
[2017-12-31] MEDS: MORPHINE SULFATE/PF 10MG/10ML VL IVP STA ×2 (20:22→22:08)
[2017-12-31 20:25] LABS: Basophils # (A) 0.1 k/uL (0-0.2); Basophils % (A) 0 %; Eosinophils # (A) 0.1 k/uL (0-0.7); Eosinophils % (A) 0 %; HCT 37.6 % (34.0-46.0); HGB 12.5 gm/dL (11.4-16.0); Lymphocytes # (A) 2.2 k/uL (1.0-4.8); Lymphocytes % (A) 11 %; MCH 28.8 pg (25.0-35.0); MCHC 33.2 g/dL (31.0-37.0); MCV 86.7 fL (80.0-100.0); Mean Platelet Volume 7.9; Monocytes % (A) 5 %; Neutrophils # (A) 16.7 k/uL (1.3-7.7); Neutrophils % (A) 83 %; Platelet Count 234 k/uL (150-450); RBC 4.33 m/uL (3.80-5.40); RDW 14.3 % (11.5-15.5); WBC 20.2 k/uL (3.8-10.6)
[2017-12-31 20:39] LABS: Albumin 3.9 g/dL (3.5-5.0); Calcium 9.5 mg/dL (8.4-10.2); Magnesium 2.2 mg/dL (1.6-2.3); Potassium 4.6 mmol/L (3.5-5.1); Total Bilirubin 0.5 mg/dL (0.2-1.3); Total Protein 7.1 g/dL (6.3-8.2)
--- NOTE | 2017-12-31 20:42 | ED ---
General Adult HPI - General Chief complaint: Abdominal Pain Stated complaint: Abd.pain Time Seen by Provider: 12/31/17 19:39 Source: patient, family, RN notes reviewed, old records reviewed Mode of arrival: wheelchair Limitations: no limitations - History of Present Illness Initial comments: This is a 72-year-old female to the ER today. This patient presents today for evaluation regards to abdominal pain. Abdominal fullness and bloating. Not feeling well decreased appetite. Patient has history of CVA history of lung cancer. Patient states she feels shaky, denies fever does have decreased appetite no change in bowel movements no dysuria. Patient denies any history of recent similar pain or symptoms - Related Data Home Medications Medication Instructions Recorded Confirmed Atorvastatin [Lipitor] 40 mg PO HS 11/17/16 12/31/17 Cholecalciferol [Vitamin D3] 4,000 unit PO DAILY 11/17/16 12/31/17 Cyanocobalamin [Vitamin B-12] 500 mcg PO DAILY 11/17/16 12/31/17 Fluticasone/Salmeterol [Advair 1 puff INHALATION RT-BID 11/17/16 12/31/17 250-50 Diskus] Gabapentin 800 mg PO TID 11/17/16 12/31/17 Glimepiride [Amaryl] 4 mg PO AC-BID 11/17/16 12/31/17 Insulin Aspart [NovoLOG Flexpen] 20 units SQ AC-TID 11/17/16 12/31/17 Insulin Degludec [Tresiba 98 unit SQ DAILY 11/17/16 12/31/17 Flextouch U-200] Meloxicam [Mobic] 7.5 mg PO HS 11/17/16 12/31/17 Nizatidine [Axid] 150 mg PO DAILY 11/17/16 12/31/17 Omeprazole 20 mg PO BID 11/17/16 12/31/17 Albuterol Inhaler [Ventolin Hfa 2 puff INHALATION RT-BID 07/22/17 12/31/17 Inhaler] Albuterol Nebulized [Ventolin 2.5 mg INHALATION RT-QID 07/22/17 12/31/17 Nebulized] Loratadine [Claritin] 10 mg PO DAILY 07/22/17 12/31/17 metFORMIN HCL [Glucophage] 500 mg PO BID 07/22/17 12/31/17 Furosemide [Lasix] 40 mg PO BID 12/31/17 12/31/17 Sucralfate [Carafate] 1 gm PO ACHS 12/31/17 12/31/17 predniSONE 5 mg PO DAILY 12/31/17 12/31/17 Previous Rx's Medication Instructions Recorded Apixaban [Eliquis] 5 mg PO BID #60 tab 08/02/17 Losartan [Cozaar] 100 mg PO DAILY #30 tab 08/02/17 Metoprolol Succinate (ER) [Toprol 50 mg PO DAILY #60 tab.er.24h 08/02/17 XL] Spironolactone [Aldactone] 25 mg PO DAILY #30 tab 08/02/17 Allergies Allergy/AdvReac Type Severity Reaction Status Date / Time codeine Allergy Unknown Verified 12/31/17 20:01 Review of Systems ROS Statement: Those systems with pertinent positive or pertinent negative responses have been documented in the HPI. ROS Other: All systems not noted in ROS Statement are negative. Past Medical History Past Medical History: COPD, Diabetes Mellitus, Hyperlipidemia, Hypertension, Memory Impairment Additional Past Medical History / Comment(s): lung cancer, tubal ligation, spinal meningitis 1970, wears 2L o2 at night History of Any Multi-Drug Resistant Organisms: None Reported Past Surgical History: Heart Catheterization With Stent, Tubal Ligation Additional Past Surgical History / Comment(s): left lower lobe lung removed, right shoulder rotator cuff Past Anesthesia/Blood Transfusion Reactions: No Reported Reaction Additional Past Anesthesia/Blood Transfusion Reaction / Comment(s): clausterphobia Date of Last Stent Placement:: unk Past Psychological History: No Psychological Hx Reported Smoking Status: Former smoker Past Alcohol Use History: None Reported Past Drug Use History: None Reported - Past Family History Mother History Unknown: Yes Family Medical History: No Reported History Father Family Medical History: Diabetes Mellitus General Exam Limitations: no limitations General appearance: alert, in no apparent distress Head exam: Present: atraumatic, normocephalic, normal inspection Eye exam: Present: normal appearance, PERRL, EOMI. Absent: scleral icterus, conjunctival injection, periorbital swelling ENT exam: Present: normal exam, mucous membranes moist Neck exam: Present: normal inspection. Absent: tenderness, meningismus, lymphadenopathy Respiratory exam: Present: normal lung sounds bilaterally. Absent: respiratory distress, wheezes, rales, rhonchi, stridor Cardiovascular Exam: Present: regular rate, normal rhythm, normal heart sounds. Absent: systolic murmur, diastolic murmur, rubs, gallop, clicks GI/Abdominal exam: Present: soft, normal bowel sounds. Absent: distended, tenderness, guarding, rebound, rigid Extremities exam: Present: normal inspection, full ROM, normal capillary refill. Absent: tenderness, pedal edema, joint swelling, calf tenderness Back exam: Present: normal inspection Neurological exam: Present: alert, oriented X3, CN II-XII intact Psychiatric exam: Present: normal affect, normal mood Skin exam: Present: warm, dry, intact, normal color. Absent: rash Course Vital Signs 12/31/17 12/31/17 12/31/17 19:39 20:32 21:59 Temperature 99.7 F H Pulse Rate 102 H 98 86 Respiratory 18 16 16 Rate Blood Pressure 156/56 193/74 187/83 O2 Sat by Pulse 93 L 96 96 Oximetry 12/31/17 23:55 Temperature 98.9 F Pulse Rate 92 Respiratory 18 Rate Blood Pressure 150/64 O2 Sat by Pulse 94 L Oximetry - Reevaluation(s) Reevaluation #1: 12/31/17 20:42 Patient's pain is improved Medical Decision Making - Medical Decision Making 72 female the ER with positive cholecystitis, patient be admitted for surgical evaluation and treatment - Lab Data Result diagrams: 12/31/17 19:58 12/31/17 19:58 Lab Results 12/31/17 12/31/17 12/31/17 Range/Units 19:58 19:58 19:58 WBC 20.2 H (3.8-10.6) k/uL RBC 4.33 (3.80-5.40) m/uL Hgb 12.5 (11.4-16.0) gm/dL Hct 37.6 (34.0-46.0) % MCV 86.7 (80.0-100.0) fL MCH 28.8 (25.0-35.0) pg MCHC 33.2 (31.0-37.0) g/dL RDW 14.3 (11.5-15.5) % Plt Count 234 (150-450) k/uL Neutrophils % 83 % Lymphocytes % 11 % Monocytes % 5 % Eosinophils % 0 % Basophils % 0 % Neutrophils # 16.7 H (1.3-7.7) k/uL Lymphocytes # 2.2 (1.0-4.8) k/uL Monocytes # 1.0 (0-1.0) k/uL Eosinophils # 0.1 (0-0.7) k/uL Basophils # 0.1 (0-0.2) k/uL Sodium 139 (137-145) mmol/L Potassium 4.6 (3.5-5.1) mmol/L Chloride 89 L (98-107) mmol/L Carbon Dioxide 37 H (22-30) mmol/L Anion Gap 13 mmol/L BUN 48 H (7-17) mg/dL Creatinine 0.90 (0.52-1.04) mg/dL Est GFR (CKD-EPI)AfAm 74 (>60 ml/min/1.73 sqM) Est GFR (CKD-EPI)NonAf 64 (>60 ml/min/1.73 sqM) Glucose 65 L (74-99) mg/dL POC Glucose (mg/dL) (75-99) mg/dL POC Glu Stone Driller Helper ID Plasma Lactic Acid Col[place] 1.4 (0.7-2.0) mmol/L Calcium 9.5 (8.4-10.2) mg/dL Phosphorus 5.0 H (2.5-4.5) mg/dL Magnesium 2.2 (1.6-2.3) mg/dL Total Bilirubin 0.5 (0.2-1.3) mg/dL AST 24 (14-36) U/L ALT 23 (9-52) U/L Alkaline Phosphatase 61 (38-126) U/L Total Protein 7.1 (6.3-8.2) g/dL Albumin 3.9 (3.5-5.0) g/dL Amylase 81 (30-110) U/L Lipase 59 (23-300) U/L Urine Color Urine Appearance (Clear) Urine pH (5.0-8.0) Ur Specific [place] (1.001-1.035) Urine Protein (Negative) Urine Glucose (UA) (Negative) Urine Ketones (Negative) Urine Blood (Negative) Urine Nitrite (Negative) Urine Bilirubin (Negative) Urine Urobilinogen (<2.0) mg/dL Ur Leukocyte Esterase (Negative) Urine RBC (0-5) /hpf Urine WBC (0-5) /hpf Ur Squamous Epith Cells (0-4) /hpf 12/31/17 12/31/17 Range/Units 20:07 21:50 WBC (3.8-10.6) k/uL RBC (3.80-5.40) m/uL Hgb (11.4-16.0) gm/dL Hct (34.0-46.0) % MCV (80.0-100.0) fL MCH (25.0-35.0) pg MCHC (31.0-37.0) g/dL RDW (11.5-15.5) % Plt Count (150-450) k/uL Neutrophils % % Lymphocytes % % Monocytes % % Eosinophils % % Basophils % % Neutrophils # (1.3-7.7) k/uL Lymphocytes # (1.0-4.8) k/uL Monocytes # (0-1.0) k/uL Eosinophils # (0-0.7) k/uL Basophils # (0-0.2) k/uL Sodium (137-145) mmol/L Potassium (3.5-5.1) mmol/L Chloride (98-107) mmol/L Carbon Dioxide (22-30) mmol/L Anion Gap mmol/L BUN (7-17) mg/dL Creatinine (0.52-1.04) mg/dL Est GFR (CKD-EPI)AfAm (>60 ml/min/1.73 sqM) Est GFR (CKD-EPI)NonAf (>60 ml/min/1.73 sqM) Glucose (74-99) mg/dL POC Glucose (mg/dL) 72 L (75-99) mg/dL POC Glu Stone Driller Helper ID Denisa Kim Plasma Lactic Acid [place] (0.7-2.0) mmol/L Calcium (8.4-10.2) mg/dL Phosphorus (2.5-4.5) mg/dL Magnesium (1.6-2.3) mg/dL Total Bilirubin (0.2-1.3) mg/dL AST (14-36) U/L ALT (9-52) U/L Alkaline Phosphatase (38-126) U/L Total Protein (6.3-8.2) g/dL Albumin (3.5-5.0) g/dL Amylase (30-110) U/L Lipase (23-300) U/L Urine Color Light Yellow Urine Appearance Clear (Clear) Urine pH 8.0 (5.0-8.0) Ur Specific [place] 1.035 (1.001-1.035) Urine Protein 2+ H (Negative) Urine Glucose (UA) Negative (Negative) Urine Ketones Negative (Negative) Urine Blood Negative (Negative) Urine Nitrite Negative (Negative) Urine Bilirubin Negative (Negative) Urine Urobilinogen <2.0 (<2.0) mg/dL Ur Leukocyte Esterase Small H (Negative) Urine RBC 3 (0-5) /hpf Urine WBC 16 H (0-5) /hpf Ur Squamous Epith Cells 8 H (0-4) /hpf - Radiology Data Radiology results: report reviewed (CT abdomen and pelvis, ultrasound gallbladder positive for cholecystitis), image reviewed Disposition Clinical Impression: Acute cholecystitis Disposition: ADMITTED IP TO THIS [facility] Condition: Serious Referrals: Mariaa Chery DO [Primary Care Provider] - 1-2 days
--- NOTE | 2017-12-31 20:56 | XR ---
EXAMINATION: XR chest 2V DATE AND TIME: 12/31/2017 8:43 PM ORDERING PROVIDER: Misbah Dick DO CLINICAL INDICATION: Pain, history of left lobectomy TECHNIQUE: AP and lateral COMPARISON: 07/28/2017 DESCRIPTION: The lungs are clear. The pleural spaces are negative. The cardiac silhouette is moderately enlarged, stable in appearance. The skeletal structures are intact without focal findings. The soft tissues are unremarkable. IMPRESSION: NO ACUTE PROCESS.
--- NOTE | 2017-12-31 21:43 | CT ---
EXAMINATION TYPE: CT abdomen pelvis w con DATE OF EXAM: 12/31/2017 COMPARISON: 01/16/2010 HISTORY: Generalized abd pain. CT DLP: 2003.1 mGycm Automated exposure control for dose reduction was used. TECHNIQUE: Helical acquisition of images was performed from the lung bases through the pelvis. CONTRAST: Performed without Oral Contrast and with IV Contrast, patient injected with 100ml mL of Isovue M300. FINDINGS: LUNG BASES: 2 cm pleural-based mass noted, not seen on the 01/16/2010 CT. LIVER/GB: No significant abnormality is appreciated. PANCREAS: No significant abnormality is seen. SPLEEN: No significant abnormality is seen. ADRENALS: No significant abnormality is seen. KIDNEYS: No significant abnormality is seen. FREE AIR: No free air is visualized. RETROPERITONEAL ADENOPATHY: None visualized REPRODUCTIVE ORGANS: No significant abnormality is seen URINARY BLADDER: No significant abnormality is seen. PELVIC ADENOPATHY: None visualized. OSSEOUS STRUCTURES: No significant abnormality is seen. BOWEL: No significant abnormality is seen. OTHER: The vasculature is unremarkable. IMPRESSION: 1. NO ACUTE PROCESS, CT ABDOMEN AND PELVIS WITH CONTRAST 2. INCIDENTAL 2 CM RIGHT LOWER LOBE SUBPLEURAL MASS, WOULD ADVISE SIX-WEEK FOLLOW-UP CHEST CT KAVITHAAC ERNA.
[2017-12-31] MEDS ORDERED: MORPHINE SULFATE/PF 10MG/10ML VL ONE (22:04)
[2017-12-31 22:13] LABS: Appearance,Urine Clear (Clear); Bilirubin,Urine Negative (Negative); Blood,Urine Negative (Negative); Color,Urine Light Yellow; Glucose,Urine (UA) Negative (Negative); Ketones,Urine Negative (Negative); Leukocyte Esterase,Urine Small (Negative); Nitrite,Urine Negative (Negative); Protein,Urine 2+ (Negative); RBC,Urine 3 /hpf (0-5); Specific Gravity,Urine 1.035 (1.001-1.035); Squamous Epithelial Cell,Urine 8 /hpf (0-4); Urobilinogen,Urine <2.0 mg/dL (<2.0); WBC,Urine 16 /hpf (0-5)
[2017-12-31] MEDS ORDERED: AMPICILLIN-SULBACTAM 3 GM in SODIUM CHLORIDE 0.9% 100 ML IVPB STA (22:26)
--- NOTE | 2017-12-31 23:24 | US ---
EXAMINATION TYPE: US gallbladder DATE OF EXAM: 12/31/2017 COMPARISON: CT 2018 CLINICAL HISTORY: Pain. Abdomen pain EXAM MEASUREMENTS: Liver Length: 19.9 cm Gallbladder Wall: 0.3 cm CBD: 1.1 cm Right Kidney: 11.6 x 6.1 x 5.9 cm Pancreas: visualized portions wnl Liver: enlarged, heterogeneous, increased attenuation, scanned intercostally, limited by rib shadowi ng Gallbladder: hydropic, wall measures in upper limits of normal Evidence for sonographic Lou's sign: yes CBD: dilated Right Kidney: wnl IMPRESSION: Hepatomegaly. Dilated gallbladder with mild dilated common bile duct. Gallbladder appeara nce is consistent with acute cholecystitis. Intrahepatic bile ducts do not appear dilated. No free fl uid.
[2018-01-01] MEDS ORDERED: AMPICILLIN-SULBACTAM 3 GM in SODIUM CHLORIDE 0.9% 100 ML IVPB SCH ×2
[2018-01-01 00:10] LABS: Glucose,Whole Blood 101 mg/dL (75-99)
[2018-01-01] MEDS: AMPICILLIN-SULBACTAM 3 GM in SODIUM CHLORIDE 0.9% 100 ML IVPB SCH ×4 (05:37→23:51)
[2018-01-01 07:33] LABS: Glucose,Whole Blood 111 mg/dL (75-99)
[2018-01-01] MEDS: ENOXAPARIN 40 MG/0.4 ML SYRINGE SQ SCH (08:15)
[2018-01-01 11:10] LABS: Basophils # (A) 0.1 k/uL (0-0.2); Basophils % (A) 0 %; Eosinophils # (A) 0.1 k/uL (0-0.7); Eosinophils % (A) 0 %; HCT 36.2 % (34.0-46.0); Lymphocytes # (A) 1.4 k/uL (1.0-4.8); Lymphocytes % (A) 6 %; MCH 29.1 pg (25.0-35.0); MCHC 33.2 g/dL (31.0-37.0); MCV 87.7 fL (80.0-100.0); Mean Platelet Volume 7.1; Monocytes # (A) 1.1 k/uL (0-1.0); Monocytes % (A) 4 %; Neutrophils # (A) 22.1 k/uL (1.3-7.7); Neutrophils % (A) 88 %; Platelet Count 210 k/uL (150-450); RBC 4.12 m/uL (3.80-5.40); RDW 14.3 % (11.5-15.5)
[2018-01-01 11:17] LABS: Albumin 3.4 g/dL (3.5-5.0); Calcium 8.9 mg/dL (8.4-10.2); Potassium 4.3 mmol/L (3.5-5.1); Total Bilirubin 0.5 mg/dL (0.2-1.3); Total Protein 6.3 g/dL (6.3-8.2)
[2018-01-01 11:29] LABS: Glucose,Whole Blood 95 mg/dL (75-99)
--- NOTE | 2018-01-01 12:05 | CONS ---
CONSULTATION REQUESTING PHYSICIAN: Dr. Mariaa Chery. REASON FOR CONSULTATION: Abdominal pain. HISTORY OF PRESENT ILLNESS: The patient is a 72-year-old pleasant white female, came to the emergency room complaining of upper abdominal pain for the last 3-4 days duration. She complains of severe pain, mostly in the right upper quadrant area, somewhat in the epigastric area associated with some nausea, but no emesis. She complains of abdominal bloating and the pain has continued to progressively get worse. She came into the emergency room. She denies any prior history of peptic ulcer disease or recent NSAID use. She denies any rectal bleeding or melena. Came to the emergency room yesterday and she had a CT of the abdomen done that showed an incidental 2 cm right lower lobe subpleural mass. Otherwise it was unremarkable. Subsequently, she had an ultrasound of the gallbladder that showed evidence of Lou sign and large liver which appeared heterogeneous, hydropic gallbladder, positive Lou sign, but no gallstones. The patient never had these symptoms in the past. She denies any recent NSAID use. No prior history of peptic ulcer disease. PAST MEDICAL HISTORY: Significant for history of CVA in the past, history of lung cancer, diabetes mellitus, hypertension, hyperlipidemia, COPD. MEDICATIONS: At home: Carafate, prednisone, Lasix, Glucophage, Claritin, Ventolin, omeprazole, Axid, Mobic; Amaryl, Advair, Lipitor, vitamin D3, gabapentin. ALLERGIES: CODEINE. PAST SURGICAL HISTORY: Tubal ligation, cardiac cath, right shoulder surgery, left lower lobe lung removal from lung cancer. SOCIAL HISTORY: Remote history of smoking. No alcohol use. FAMILY HISTORY: Mother had diabetes mellitus and father has hypertension. REVIEW OF SYSTEMS: CARDIOPULMONARY: No chest pain, shortness of breath. GENITOURINARY: No dysuria or hematuria. MUSCULOSKELETAL: Unremarkable. SKIN: Unremarkable. ENDOCRINE: Unremarkable. PSYCHIATRIC: Unremarkable. NEUROLOGY: Unremarkable. ENT/VISION: Unremarkable. CONSTITUTIONAL: No recent weight loss. No fever, chills, night sweats. PHYSICAL EXAMINATION: She appears comfortable. No apparent distress vital signs is stable. Blood pressure is 150/64, pulse rate 92, temperature 98.9. HEENT: Examination unremarkable. Conjunctivae pink. Sclerae anicteric. Oral cavity no lesions. NECK: No jugular venous distention or lymph node enlargement. CHEST: Clear to auscultation. HEART: Regular rate and rhythm. ABDOMEN: Soft, it was slightly distended. There was severe tenderness in the right upper quadrant area. There was mild tenderness in the epigastric area. The rest of the abdomen was benign. Bowel sounds are positive. No organomegaly. EXTREMITIES: No pedal edema. SKIN: No rashes. NEUROLOGIC: Alert and oriented x3. No focal deficits. LAB: Done at the time of admission to the hospital, WBC 20.2, hemoglobin 12.5, platelets are normal. BUN is 48, creatinine 0.9. IMPRESSION: This is a lady who presents to the hospital with upper abdominal pain for the last 3 days duration associated with some abdominal bloating, nausea but no emesis. The pain is more localized to the right upper quadrant area as well as in the epigastric area. She has some nausea but no emesis. She had a CT of the abdomen that was unremarkable, but ultrasound of the gallbladder did show evidence of hydrops of the gallbladder and positive Lou sign. However, there were no gallstones noted. At this time, cannot exclude possibility of acute cholecystitis versus upper GI pathology. The patient did have some leukocytosis and hence, she was started on broad-spectrum antibiotics with Unasyn. RECOMMENDATIONS: 1. Keep her n.p.o. 2. We will start on Protonix 40 mg daily. 3. Await surgical consultation with Dr. Alvares. 4. Consider an upper endoscopy if no surgical intervention planned to rule out any upper GI pathology causing her symptoms. 5. We will follow her closely during hospital stay. Thank you for this consultation. MMODL / IJN: [id number] /
[2018-01-01] MEDS: PANTOPRAZOLE 40 MG/10 ML VIAL IVP SCH ×2 (12:25→20:34)
--- NOTE | 2018-01-01 13:28 | P.GSHP ---
History of Present Illness H&P Date: 01/01/18 Chief Complaint: Abdominal pain, hydrops of the gallbladder The patient is a 72-year-old female who is been feeling well for several days. She's had abdominal fullness and bloating. Complaining of pain in the right upper quadrant. She's never had anything like this in the past. No fatty food dyscrasias. No vomiting or diarrhea. She does have some constipation with a bowel movement every 2-3 days. This is normal for her. No jaundice, tea- colored urine, acholic stool. Computed tomography scan did not show any acute intra-abdominal abnormality. Ultrasound did show some hydrops of the gallbladder along with common bile duct dilation. No stones were seen however. - Review of Systems All systems: negative - Constitutional Constitutional: Reports fatigue, Reports malaise - Gastrointestinal Gastrointestinal: Reports as per HPI, Denies BRBPR, Denies change in bowel habits, Denies melena, Denies nausea, Denies vomiting Past Medical History Past Medical History: COPD, Diabetes Mellitus, Hyperlipidemia, Hypertension, Memory Impairment Additional Past Medical History / Comment(s): lung cancer, tubal ligation, spinal meningitis 1970, wears 2L o2 at night History of Any Multi-Drug Resistant Organisms: None Reported Past Surgical History: Heart Catheterization With Stent, Tubal Ligation Additional Past Surgical History / Comment(s): left lower lobe lung removed, right shoulder rotator cuff Past Anesthesia/Blood Transfusion Reactions: No Reported Reaction Additional Past Anesthesia/Blood Transfusion Reaction / Comment(s): clausterphobia Date of Last Stent Placement:: unk Past Psychological History: No Psychological Hx Reported Additional Psychological History / Comment(s): pt lives with sig other of 30 years. uses a cane or walker when up Smoking Status: Former smoker Past Alcohol Use History: None Reported Past Drug Use History: None Reported - Past Family History Mother History Unknown: Yes Family Medical History: No Reported History Father Family Medical History: Diabetes Mellitus Medications and Allergies Home Medications Medication Instructions Recorded Confirmed Type Atorvastatin [Lipitor] 40 mg PO HS 11/17/16 12/31/17 History Cholecalciferol [Vitamin D3] 4,000 unit PO DAILY 11/17/16 12/31/17 History Cyanocobalamin [Vitamin B-12] 500 mcg PO DAILY 11/17/16 12/31/17 History Fluticasone/Salmeterol [Advair 1 puff INHALATION RT-BID 11/17/16 12/31/17 History 250-50 Diskus] Gabapentin 800 mg PO TID 11/17/16 12/31/17 History Glimepiride [Amaryl] 4 mg PO AC-BID 11/17/16 12/31/17 History Insulin Aspart [NovoLOG Flexpen] 20 units SQ AC-TID 11/17/16 12/31/17 History Insulin Degludec [Tresiba 98 unit SQ DAILY 11/17/16 12/31/17 History Flextouch U-200] Meloxicam [Mobic] 7.5 mg PO HS 11/17/16 12/31/17 History Nizatidine [Axid] 150 mg PO DAILY 11/17/16 12/31/17 History Omeprazole 20 mg PO BID 11/17/16 12/31/17 History Albuterol Inhaler [Ventolin Hfa 2 puff INHALATION RT-BID 07/22/17 12/31/17 History Inhaler] Albuterol Nebulized [Ventolin 2.5 mg INHALATION RT-QID 07/22/17 12/31/17 History Nebulized] Loratadine [Claritin] 10 mg PO DAILY 07/22/17 12/31/17 History metFORMIN HCL [Glucophage] 500 mg PO BID 07/22/17 12/31/17 History Apixaban [Eliquis] 5 mg PO BID #60 tab 08/02/17 12/31/17 Rx Losartan [Cozaar] 100 mg PO DAILY #30 tab 08/02/17 12/31/17 Rx Metoprolol Succinate (ER) [Toprol 50 mg PO DAILY #60 tab.er.24h 08/02/17 Rx XL] Spironolactone [Aldactone] 25 mg PO DAILY #30 tab 08/02/17 12/31/17 Rx Furosemide [Lasix] 40 mg PO BID 12/31/17 12/31/17 History Sucralfate [Carafate] 1 gm PO ACHS 12/31/17 12/31/17 History predniSONE 5 mg PO DAILY 12/31/17 12/31/17 History Allergies Allergy/AdvReac Type Severity Reaction Status Date / Time codeine Allergy Unknown Verified 12/31/17 20:01 Surgical - Exam Osteopathic Statement: *. No significant issues noted on an osteopathic structural exam other than those noted in the History and Physical/Consult. Vital Signs Temp Pulse Resp BP Pulse Ox 99.7 F H 102 H 18 156/56 93 L 12/31/17 19:39 12/31/17 19:39 12/31/17 19:39 12/31/17 19:39 12/31/17 19:39 - General Appears uncomfortable well developed, well nourished - Eyes normal ocular movement - ENT normal mucosa - Neck trachea midline - Respiratory normal expansion, clear to auscultation (Somewhat diminished bilaterally) - Cardiovascular Mildly tachycardic - Abdomen Abdomen: soft, tender (Right upper quadrant), guarding (Mild voluntary), no rebound, no distended Hernia: no umbilical - Psychiatric oriented to time, oriented to person, oriented to place, speech is normal, memory intact Results - Labs 01/01/18 10:44 01/01/18 10:44 Abnormal Lab Results - Last 24 Hours (Table) 12/31/17 12/31/17 12/31/17 Range/Units 19:58 19:58 20:07 WBC 20.2 H (3.8-10.6) k/uL Neutrophils # 16.7 H (1.3-7.7) k/uL Monocytes # (0-1.0) k/uL Chloride 89 L (98-107) mmol/L Carbon Dioxide 37 H (22-30) mmol/L BUN 48 H (7-17) mg/dL Glucose 65 L (74-99) mg/dL POC Glucose (mg/dL) 72 L (75-99) mg/dL Phosphorus 5.0 H (2.5-4.5) mg/dL Albumin (3.5-5.0) g/dL Urine Protein (Negative) Ur Leukocyte Esterase (Negative) Urine WBC (0-5) /hpf Ur Squamous Epith Cells (0-4) /hpf 12/31/17 01/01/18 01/01/18 Range/Units 21:50 00:07 07:30 WBC (3.8-10.6) k/uL Neutrophils # (1.3-7.7) k/uL Monocytes # (0-1.0) k/uL Chloride (98-107) mmol/L Carbon Dioxide (22-30) mmol/L BUN (7-17) mg/dL Glucose (74-99) mg/dL POC Glucose (mg/dL) 101 H 111 H (75-99) mg/dL Phosphorus (2.5-4.5) mg/dL Albumin (3.5-5.0) g/dL Urine Protein 2+ H (Negative) Ur Leukocyte Esterase Small H (Negative) Urine WBC 16 H (0-5) /hpf Ur Squamous Epith Cells 8 H (0-4) /hpf 01/01/18 01/01/18 Range/Units 10:44 10:44 WBC 25.0 H* (3.8-10.6) k/uL Neutrophils # 22.1 H (1.3-7.7) k/uL Monocytes # 1.1 H (0-1.0) k/uL Chloride 96 L (98-107) mmol/L Carbon Dioxide 35 H (22-30) mmol/L BUN 38 H (7-17) mg/dL Glucose (74-99) mg/dL POC Glucose (mg/dL) (75-99) mg/dL Phosphorus (2.5-4.5) mg/dL Albumin 3.4 L (3.5-5.0) g/dL Urine Protein (Negative) Ur Leukocyte Esterase (Negative) Urine WBC (0-5) /hpf Ur Squamous Epith Cells (0-4) /hpf Microbiology - Last 24 Hours (Table) 12/31/17 21:50 Urine Culture - Preliminary Urine,Clean Catch Diabetes panel 12/31/17 01/01/18 Range/Units 19:58 10:44 Sodium 139 142 (137-145) mmol/L Potassium 4.6 4.3 (3.5-5.1) mmol/L Chloride 89 L 96 L (98-107) mmol/L Carbon Dioxide 37 H 35 H (22-30) mmol/L BUN 48 H 38 H (7-17) mg/dL Creatinine 0.90 0.96 (0.52-1.04) mg/dL Glucose 65 L 97 (74-99) mg/dL Calcium 9.5 8.9 (8.4-10.2) mg/dL AST 24 22 (14-36) U/L ALT 23 26 (9-52) U/L Alkaline Phosphatase 61 68 (38-126) U/L Total Protein 7.1 6.3 (6.3-8.2) g/dL Albumin 3.9 3.4 L (3.5-5.0) g/dL Calcium panel 12/31/17 01/01/18 Range/Units 19:58 10:44 Calcium 9.5 8.9 (8.4-10.2) mg/dL Phosphorus 5.0 H (2.5-4.5) mg/dL Albumin 3.9 3.4 L (3.5-5.0) g/dL Pituitary panel 12/31/17 01/01/18 Range/Units 19:58 10:44 Sodium 139 142 (137-145) mmol/L Potassium 4.6 4.3 (3.5-5.1) mmol/L Chloride 89 L 96 L (98-107) mmol/L Carbon Dioxide 37 H 35 H (22-30) mmol/L BUN 48 H 38 H (7-17) mg/dL Creatinine 0.90 0.96 (0.52-1.04) mg/dL Glucose 65 L 97 (74-99) mg/dL Calcium 9.5 8.9 (8.4-10.2) mg/dL Adrenal panel 12/31/17 01/01/18 Range/Units 19:58 10:44 Sodium 139 142 (137-145) mmol/L Potassium 4.6 4.3 (3.5-5.1) mmol/L Chloride 89 L 96 L (98-107) mmol/L Carbon Dioxide 37 H 35 H (22-30) mmol/L BUN 48 H 38 H (7-17) mg/dL Creatinine 0.90 0.96 (0.52-1.04) mg/dL Glucose 65 L 97 (74-99) mg/dL Calcium 9.5 8.9 (8.4-10.2) mg/dL Total Bilirubin 0.5 0.5 (0.2-1.3) mg/dL AST 24 22 (14-36) U/L ALT 23 26 (9-52) U/L Alkaline Phosphatase 61 68 (38-126) U/L Total Protein 7.1 6.3 (6.3-8.2) g/dL Albumin 3.9 3.4 L (3.5-5.0) g/dL - Imaging CT scan - abdomen: report reviewed US - abdomen: report reviewed Assessment and Plan (1) Abdominal pain Current Visit: Yes Status: Acute Code(s): R10.9 - UNSPECIFIED ABDOMINAL PAIN SNOMED Code(s): 98220339 (2) Hydrops of gallbladder Current Visit: Yes Status: Acute Code(s): K82.1 - HYDROPS OF GALLBLADDER SNOMED Code(s): 70269653 (3) Personal history of lung cancer Current Visit: Yes Status: Acute Code(s): Z85.118 - PERSONAL HISTORY OF MALIGNANT NEOPLASM OF BRONCHUS AND LUNG SNOMED Code(s): 394178882 (4) History of atrial fibrillation Current Visit: Yes Status: Acute Code(s): Z86.79 - PERSONAL HISTORY OF OTHER DISEASES OF THE CIRCULATORY SYSTEM SNOMED Code(s): 070125508 Plan: GI has evaluated her. Await medical evaluation. We'll order a HIDA scan to rule out nonvisualization of the gallbladder. DVT and ulcer prophylaxis. Further recommendations to follow.
[2018-01-01 17:34] LABS: Glucose,Whole Blood 90 mg/dL (75-99)
[2018-01-01] MEDS: FUROSEMIDE 40 MG TAB PO SCH (17:35)
[2018-01-01] MEDS: predniSONE 5 MG TAB PO SCH (17:35)
[2018-01-01] MEDS: SUCRALFATE 1 GM TAB PO SCH ×2 (17:35→20:34)
--- NOTE | 2018-01-01 17:36 | NM ---
EXAMINATION TYPE: NM hepatobiliary w CCK DATE OF EXAM: 01/01/2018 COMPARISON: Ultrasound gallbladder and CT abdomen pelvis 12/31/2017 HISTORY: Right upper quadrant pain TECHNIQUE: After the intravenous administration of 5.0 mCi Tc 99m Mebrofenin hepatobiliary scintigrap hy is performed. Immediate images post injection. FINDINGS: There is satisfactory initial accumulation of tracer by the liver. The gallbladder is visualized wit hin 8 minutes. The small bowel activity is noted within 10 minutes. At one hour CCK was administere d, patient was injected with 2.0 mcg of Kinevac, and gallbladder ejection fraction is calculated at 1 4 %, abnormal. Therefore there is no scintigraphic evidence of cystic or common bile duct obstructio n to suggest acute cholecystitis. IMPRESSION: Abnormal low gallbladder ejection fraction
--- NOTE | 2018-01-01 17:50 | P.HPIM ---
History of Present Illness H&P Date: 01/01/18 Chief Complaint: Abdominal pain Patient is a 72-year-old female who presented to [facility] emergency room was a chief complaint of abdominal pain patient describes a fullness and bloating and pain in the right upper quadrant there is no nausea or vomiting no diarrhea last bowel movement 3 days ago. Patient was evaluated in emergency room computed tomography scan of the abdomen and pelvis did not reveal any acute abnormality ultrasound of the abdomen showed hydrops of the gallbladder and common bile duct dilatation. Patient was admitted under surgical service medical consultation was requested for management while hospitalized. Past medical history significant for #1 history of atrial fibrillation patient is maintained on ELIQUIS last dose was taken on Wednesday morning, heart rate 90-100 #2 underlying history of congestive heart failure last echocardiogram July 2017 with normal ejection fraction #3 underlying history of COPD stable at this time #4 previous history of lung cancer Past Medical History Past Medical History: COPD, Diabetes Mellitus, Hyperlipidemia, Hypertension, Memory Impairment Additional Past Medical History / Comment(s): lung cancer, tubal ligation, spinal meningitis 1970, wears 2L o2 at night History of Any Multi-Drug Resistant Organisms: None Reported Past Surgical History: Heart Catheterization With Stent, Tubal Ligation Additional Past Surgical History / Comment(s): left lower lobe lung removed, right shoulder rotator cuff Past Anesthesia/Blood Transfusion Reactions: No Reported Reaction Additional Past Anesthesia/Blood Transfusion Reaction / Comment(s): clausterphobia Date of Last Stent Placement:: unk Past Psychological History: No Psychological Hx Reported Additional Psychological History / Comment(s): pt lives with sig other of 30 years. uses a cane or walker when up Smoking Status: Former smoker Past Alcohol Use History: None Reported Past Drug Use History: None Reported - Past Family History Mother History Unknown: Yes Family Medical History: No Reported History Father Family Medical History: Diabetes Mellitus Medications and Allergies Home Medications Medication Instructions Recorded Confirmed Type Atorvastatin [Lipitor] 40 mg PO HS 11/17/16 12/31/17 History Cholecalciferol [Vitamin D3] 4,000 unit PO DAILY 11/17/16 12/31/17 History Cyanocobalamin [Vitamin B-12] 500 mcg PO DAILY 11/17/16 12/31/17 History Fluticasone/Salmeterol [Advair 1 puff INHALATION RT-BID 11/17/16 12/31/17 History 250-50 Diskus] Gabapentin 800 mg PO TID 11/17/16 12/31/17 History Glimepiride [Amaryl] 4 mg PO AC-BID 11/17/16 12/31/17 History Insulin Aspart [NovoLOG Flexpen] 20 units SQ AC-TID 11/17/16 12/31/17 History Insulin Degludec [Tresiba 98 unit SQ DAILY 11/17/16 12/31/17 History Flextouch U-200] Meloxicam [Mobic] 7.5 mg PO HS 11/17/16 12/31/17 History Nizatidine [Axid] 150 mg PO DAILY 11/17/16 12/31/17 History Omeprazole 20 mg PO BID 11/17/16 12/31/17 History Albuterol Inhaler [Ventolin Hfa 2 puff INHALATION RT-BID 07/22/17 12/31/17 History Inhaler] Albuterol Nebulized [Ventolin 2.5 mg INHALATION RT-QID 07/22/17 12/31/17 History Nebulized] Loratadine [Claritin] 10 mg PO DAILY 07/22/17 12/31/17 History metFORMIN HCL [Glucophage] 500 mg PO BID 07/22/17 12/31/17 History Apixaban [Eliquis] 5 mg PO BID #60 tab 08/02/17 12/31/17 Rx Losartan [Cozaar] 100 mg PO DAILY #30 tab 08/02/17 12/31/17 Rx Metoprolol Succinate (ER) [Toprol 50 mg PO DAILY #60 tab.er.24h 08/02/17 Rx XL] Spironolactone [Aldactone] 25 mg PO DAILY #30 tab 08/02/17 12/31/17 Rx Furosemide [Lasix] 40 mg PO BID 12/31/17 12/31/17 History Sucralfate [Carafate] 1 gm PO ACHS 12/31/17 12/31/17 History predniSONE 5 mg PO DAILY 12/31/17 12/31/17 History Allergies Allergy/AdvReac Type Severity Reaction Status Date / Time codeine Allergy Unknown Verified 12/31/17 20:01 Physical Exam Vitals: Vital Signs Temp Pulse Pulse Resp BP BP BP 01/01/18 15:00 99.1 F 109 H 20 149/73 01/01/18 06:29 98.8 F 107 H 20 147/82 01/01/18 01:23 98.0 F 91 20 153/64 12/31/17 23:55 98.9 F 92 18 150/64 12/31/17 21:59 86 16 187/83 12/31/17 20:32 98 16 193/74 12/31/17 19:39 99.7 F H 102 H 18 156/56 Pulse Ox 01/01/18 15:00 93 L 01/01/18 06:29 95 01/01/18 01:23 94 L 12/31/17 23:55 94 L 12/31/17 21:59 96 12/31/17 20:32 96 12/31/17 19:39 93 L Intake and Output 01/01/18 01/01/18 01/01/18 06:59 14:59 22:59 Intake Total 0 Balance 0 Intake: Oral 0 Other: # Voids 2 4 Weight 96 kg In general patient is alert and oriented 3 in no apparent distress HEENT head normocephalic and atraumatic Neck is supple no JVD no goiter no lymphadenopathy Chest exam reveals a few scattered rhonchi no wheezing Cardiac exam reveals regular heart sounds S1 and S2 no gallops no murmurs Abdomen is soft with right upper quadrant tenderness no organomegaly with normal bowel sounds Extremity exam reveals no edema no cyanosis or clubbing Neurological examination reveals no gross focal deficit Results CBC & Chem 7: 01/01/18 10:44 01/01/18 10:44 Labs: Abnormal Lab Results - Last 24 Hours (Table) 12/31/17 12/31/17 12/31/17 Range/Units 19:58 19:58 19:58 WBC 20.2 H (3.8-10.6) k/uL Neutrophils # 16.7 H (1.3-7.7) k/uL Monocytes # (0-1.0) k/uL Chloride 89 L (98-107) mmol/L Carbon Dioxide 37 H (22-30) mmol/L BUN 48 H (7-17) mg/dL Glucose 65 L (74-99) mg/dL POC Glucose (mg/dL) (75-99) mg/dL Hemoglobin A1c 8.0 H (4.0-6.0) % Phosphorus 5.0 H (2.5-4.5) mg/dL Albumin (3.5-5.0) g/dL Urine Protein (Negative) Ur Leukocyte Esterase (Negative) Urine WBC (0-5) /hpf Ur Squamous Epith Cells (0-4) /hpf 12/31/17 12/31/17 01/01/18 Range/Units 20:07 21:50 00:07 WBC (3.8-10.6) k/uL Neutrophils # (1.3-7.7) k/uL Monocytes # (0-1.0) k/uL Chloride (98-107) mmol/L Carbon Dioxide (22-30) mmol/L BUN (7-17) mg/dL Glucose (74-99) mg/dL POC Glucose (mg/dL) 72 L 101 H (75-99) mg/dL Hemoglobin A1c (4.0-6.0) % Phosphorus (2.5-4.5) mg/dL Albumin (3.5-5.0) g/dL Urine Protein 2+ H (Negative) Ur Leukocyte Esterase Small H (Negative) Urine WBC 16 H (0-5) /hpf Ur Squamous Epith Cells 8 H (0-4) /hpf 01/01/18 01/01/18 01/01/18 Range/Units 07:30 10:44 10:44 WBC 25.0 H* (3.8-10.6) k/uL Neutrophils # 22.1 H (1.3-7.7) k/uL Monocytes # 1.1 H (0-1.0) k/uL Chloride 96 L (98-107) mmol/L Carbon Dioxide 35 H (22-30) mmol/L BUN 38 H (7-17) mg/dL Glucose (74-99) mg/dL POC Glucose (mg/dL) 111 H (75-99) mg/dL Hemoglobin A1c (4.0-6.0) % Phosphorus (2.5-4.5) mg/dL Albumin 3.4 L (3.5-5.0) g/dL Urine Protein (Negative) Ur Leukocyte Esterase (Negative) Urine WBC (0-5) /hpf Ur Squamous Epith Cells (0-4) /hpf Microbiology - Last 24 Hours (Table) 12/31/17 21:50 Urine Culture - Preliminary Urine,Clean Catch Thrombosis Risk Factor Assmnt - Choose All That Apply Any of the Below Risk Factors Present?: Yes Each Factor Represents 1 point: Abnormal pulmonary function (COPD), Obesity ( BMI >25) Other Risk Factors: Yes Each Risk Factor Represents 2 Points: Age 61-74 years Other congenital or acquired thrombophilia - If yes, enter type in comment: No Thrombosis Risk Factor Assessment Total Risk Factor Score: 4 Thrombosis Risk Factor Assessment Level: Moderate Risk Assessment and Plan Plan: #1 dilated gallbladder with dilated common bile duct, consistent was acute cholecystitis #2 underlying history of atrial fibrillation on Eliquis #3 history of congestive heart failure without evidence of exacerbation at this time #4 underlying history of COPD stable at this time #5 previous history of lung cancer Patient is stable there is no medical contraindication for surgery Patient is at increased surgical risk due to multiple medical problems listed above Please allow at least 48 hours after last ELIQUIS dose. Will obtain chest x-ray and EKG Will consult cardiology for follow-up
[2018-01-01] MEDS ORDERED: ALBUTEROL NEBULIZED 2.5 MG/3 ML INHALATION SCH (20:00)
[2018-01-01] MEDS: SYMBICORT 80-4.5 MCG INHALER INHALATION SCH (20:21)
[2018-01-01] MEDS: ALBUTEROL NEBULIZED 2.5 MG/3 ML INHALATION SCH (20:21)
[2018-01-01] MEDS: GABAPENTIN 400 MG CAP PO SCH (20:34)
[2018-01-01 20:46] LABS: Glucose,Whole Blood 220 mg/dL (75-99)
[2018-01-02] MEDS: AMPICILLIN-SULBACTAM 3 GM in SODIUM CHLORIDE 0.9% 100 ML IVPB SCH ×4 (06:25→23:14)
[2018-01-02 07:24] LABS: Glucose,Whole Blood 164 mg/dL (75-99)
[2018-01-02] MEDS: FUROSEMIDE 40 MG TAB PO SCH ×2 (08:05→17:32)
[2018-01-02] MEDS: SUCRALFATE 1 GM TAB PO SCH ×4 (08:05→21:08)
[2018-01-02] MEDS: ENOXAPARIN 40 MG/0.4 ML SYRINGE SQ SCH (08:05)
[2018-01-02] MEDS: predniSONE 5 MG TAB PO SCH (08:06)
[2018-01-02] MEDS: METOPROLOL SUCCINATE (ER) 50 MG TAB.ER.24H PO SCH (08:06)
[2018-01-02] MEDS: GABAPENTIN 400 MG CAP PO SCH ×3 (08:06→21:08)
[2018-01-02] MEDS: PANTOPRAZOLE 40 MG/10 ML VIAL IVP SCH ×2 (08:06→21:08)
[2018-01-02] MEDS: LOSARTAN 50 MG TAB PO SCH (08:06)
[2018-01-02] MEDS: SPIRONOLACTONE 25 MG TAB PO SCH (08:07)
[2018-01-02] MEDS: ALBUTEROL NEBULIZED 2.5 MG/3 ML INHALATION SCH ×4 (08:21→21:06)
[2018-01-02] MEDS: SYMBICORT 80-4.5 MCG INHALER INHALATION SCH ×2 (08:21→21:06)
[2018-01-02 09:06] LABS: Basophils # (A) 0.1 k/uL (0-0.2); Basophils % (A) 0 %; Eosinophils # (A) 0.1 k/uL (0-0.7); Eosinophils % (A) 0 %; HCT 33.7 % (34.0-46.0); HGB 10.8 gm/dL (11.4-16.0); Lymphocytes # (A) 2.1 k/uL (1.0-4.8); Lymphocytes % (A) 10 %; MCH 28.2 pg (25.0-35.0); MCHC 32.2 g/dL (31.0-37.0); MCV 87.7 fL (80.0-100.0); Mean Platelet Volume 7.5; Monocytes # (A) 0.9 k/uL (0-1.0); Monocytes % (A) 4 %; Neutrophils # (A) 18.6 k/uL (1.3-7.7); Neutrophils % (A) 84 %; Platelet Count 191 k/uL (150-450); RBC 3.84 m/uL (3.80-5.40); RDW 14.2 % (11.5-15.5); WBC 22.1 k/uL (3.8-10.6)
[2018-01-02 09:16] LABS: Albumin 3.1 g/dL (3.5-5.0); Calcium 8.7 mg/dL (8.4-10.2); Potassium 3.9 mmol/L (3.5-5.1); Total Bilirubin 0.5 mg/dL (0.2-1.3)
[2018-01-02 11:20] LABS: Glucose,Whole Blood 133 mg/dL (75-99)
--- NOTE | 2018-01-02 11:40 | P.PN ---
Subjective Progress Note Date: 01/02/18 Patient is a 72-year-old female who presented to [facility] emergency room was a chief complaint of abdominal pain patient describes a fullness and bloating and pain in the right upper quadrant there is no nausea or vomiting no diarrhea last bowel movement 3 days ago. Patient was evaluated in emergency room computed tomography scan of the abdomen and pelvis did not reveal any acute abnormality ultrasound of the abdomen showed hydrops of the gallbladder and common bile duct dilatation. Patient was admitted under surgical service medical consultation was requested for management while hospitalized. On 01/02/2018 patient is alert and oriented 3 denies any fever or chills no headache or dizziness no chest pain or shortness of breath she is complaining of right upper quadrant abdominal pain otherwise no complaints, there is no nausea or vomiting with urination no frequency or urgency and no hematuria Objective - Vital Signs Vital signs: Vital Signs Temp 101.6 F H 01/02/18 07:00 Pulse 96 01/02/18 08:35 Resp 24 01/02/18 07:00 BP 139/57 01/02/18 07:00 Pulse Ox 96 01/02/18 07:00 Intake & Output 01/01/18 01/02/18 01/02/18 18:59 06:59 18:59 Other: # Voids 4 4 - Exam In general patient is alert and oriented 3 in no apparent distress HEENT head normocephalic and atraumatic Neck is supple no JVD no goiter no lymphadenopathy Chest exam reveals a few scattered rhonchi no wheezing Cardiac exam reveals regular heart sounds S1 and S2 no gallops no murmurs Abdomen is soft with right upper quadrant tenderness no organomegaly with normal bowel sounds Extremity exam reveals no edema no cyanosis or clubbing Neurological examination reveals no gross focal deficit - Labs CBC & Chem 7: 01/02/18 08:43 01/02/18 08:43 Labs: Abnormal Lab Results - Last 24 Hours (Table) 12/31/17 01/01/18 01/01/18 Range/Units 19:58 10:44 20:45 WBC 25.0 H* (3.8-10.6) k/uL Hgb (11.4-16.0) gm/dL Hct (34.0-46.0) % Neutrophils # 22.1 H (1.3-7.7) k/uL Monocytes # 1.1 H (0-1.0) k/uL Carbon Dioxide (22-30) mmol/L BUN (7-17) mg/dL Glucose (74-99) mg/dL POC Glucose (mg/dL) 220 H (75-99) mg/dL Hemoglobin A1c 8.0 H (4.0-6.0) % AST (14-36) U/L Total Protein (6.3-8.2) g/dL Albumin (3.5-5.0) g/dL 01/02/18 01/02/18 01/02/18 Range/Units 07:22 08:43 08:43 WBC 22.1 H (3.8-10.6) k/uL Hgb 10.8 L (11.4-16.0) gm/dL Hct 33.7 L (34.0-46.0) % Neutrophils # 18.6 H (1.3-7.7) k/uL Monocytes # (0-1.0) k/uL Carbon Dioxide 32 H (22-30) mmol/L BUN 42 H (7-17) mg/dL Glucose 119 H (74-99) mg/dL POC Glucose (mg/dL) 164 H (75-99) mg/dL Hemoglobin A1c (4.0-6.0) % AST 37 H (14-36) U/L Total Protein 6.0 L (6.3-8.2) g/dL Albumin 3.1 L (3.5-5.0) g/dL 01/02/18 Range/Units 11:19 WBC (3.8-10.6) k/uL Hgb (11.4-16.0) gm/dL Hct (34.0-46.0) % Neutrophils # (1.3-7.7) k/uL Monocytes # (0-1.0) k/uL Carbon Dioxide (22-30) mmol/L BUN (7-17) mg/dL Glucose (74-99) mg/dL POC Glucose (mg/dL) 133 H (75-99) mg/dL Hemoglobin A1c (4.0-6.0) % AST (14-36) U/L Total Protein (6.3-8.2) g/dL Albumin (3.5-5.0) g/dL Microbiology - Last 24 Hours (Table) 12/31/17 21:50 Urine Culture - Preliminary Urine,Clean Catch Assessment and Plan Plan: #1 dilated gallbladder with dilated common bile duct, consistent with acute cholecystitis #2 underlying history of atrial fibrillation on Eliquis #3 history of congestive heart failure without evidence of exacerbation at this time #4 underlying history of COPD stable at this time #5 previous history of lung cancer #6 leukocytosis white blood count 22.1 today down from 25 yesterday patient is maintained on Unasyn 3 g IV every 6 hours since admission consult Dr. Cleveland regarding leukocytosis Patient is stable there is no medical contraindication for surgery Patient is at increased surgical risk due to multiple medical problems listed above Please allow at least 48 hours after last ELIQUIS dose. Will obtain chest x-ray and EKG Will consult cardiology for follow-up
--- NOTE | 2018-01-02 12:28 | P.PN ---
Subjective Progress Note Date: 01/02/18 Principal diagnosis: Abdominal pain, leukocytosis The patient is seen on rounds. She is feeling much better today. No nausea or vomiting. No chest pain or shortness of breath. THe pain is improved. Objective - Vital Signs Vital signs: Vital Signs Temp 101.6 F H 01/02/18 07:00 Pulse 108 H 01/02/18 12:16 Resp 24 01/02/18 07:00 BP 139/57 01/02/18 07:00 Pulse Ox 96 01/02/18 07:00 Intake & Output 01/01/18 01/02/18 01/02/18 18:59 06:59 18:59 Other: # Voids 4 4 - Constitutional General appearance: Present: cooperative, no acute distress - Respiratory Respiratory: bilateral: CTA, negative: wheezing - Cardiovascular Rhythm: regular - Gastrointestinal General gastrointestinal: Present: normal bowel sounds, soft, tenderness (mild epigastric- improved from yesterday) - Labs CBC & Chem 7: 01/02/18 08:43 01/02/18 08:43 Labs: Abnormal Lab Results - Last 24 Hours (Table) 12/31/17 01/01/18 01/02/18 Range/Units 19:58 20:45 07:22 WBC (3.8-10.6) k/uL Hgb (11.4-16.0) gm/dL Hct (34.0-46.0) % Neutrophils # (1.3-7.7) k/uL Carbon Dioxide (22-30) mmol/L BUN (7-17) mg/dL Glucose (74-99) mg/dL POC Glucose (mg/dL) 220 H 164 H (75-99) mg/dL Hemoglobin A1c 8.0 H (4.0-6.0) % AST (14-36) U/L Total Protein (6.3-8.2) g/dL Albumin (3.5-5.0) g/dL 01/02/18 01/02/18 01/02/18 Range/Units 08:43 08:43 11:19 WBC 22.1 H (3.8-10.6) k/uL Hgb 10.8 L (11.4-16.0) gm/dL Hct 33.7 L (34.0-46.0) % Neutrophils # 18.6 H (1.3-7.7) k/uL Carbon Dioxide 32 H (22-30) mmol/L BUN 42 H (7-17) mg/dL Glucose 119 H (74-99) mg/dL POC Glucose (mg/dL) 133 H (75-99) mg/dL Hemoglobin A1c (4.0-6.0) % AST 37 H (14-36) U/L Total Protein 6.0 L (6.3-8.2) g/dL Albumin 3.1 L (3.5-5.0) g/dL Microbiology - Last 24 Hours (Table) 12/31/17 21:50 Urine Culture - Preliminary Urine,Clean Catch Assessment and Plan (1) Abdominal pain Current Visit: Yes Status: Acute Code(s): R10.9 - UNSPECIFIED ABDOMINAL PAIN SNOMED Code(s): 04865808 (2) Hydrops of gallbladder Current Visit: Yes Status: Acute Code(s): K82.1 - HYDROPS OF GALLBLADDER SNOMED Code(s): 06764610 (3) Personal history of lung cancer Current Visit: Yes Status: Acute Code(s): Z85.118 - PERSONAL HISTORY OF MALIGNANT NEOPLASM OF BRONCHUS AND LUNG SNOMED Code(s): 021035187 (4) History of atrial fibrillation Current Visit: Yes Status: Acute Code(s): Z86.79 - PERSONAL HISTORY OF OTHER DISEASES OF THE CIRCULATORY SYSTEM SNOMED Code(s): 099849952 Plan: No gallstones were seen on CT scan or US. No gallbladder wall thickening. There was prominence of CBD on US. THerefore a HIDA was done yesterday. There was prompt filling of the gallbladder with no evidence of acute cholecystitis. THe ejection fraction was diminished, but that would not indicate acute cholecystitis. THe case was discussed with Dr Kanika Collins, she will do an EGD tomorrow to rule out ulcer disease as cause of pain. No plan for cholecystectomy at this point. Await further workup
--- NOTE | 2018-01-02 13:01 | PN ---
PROGRESS NOTE DATE OF SERVICE: December Patient is a 72-year-old pleasant white female admitted to hospital with severe epigastric right upper quadrant abdominal pain of 3 days duration. She had a CT of the abdomen as well as ultrasound done that did not show evidence of gallstone. Subsequently, she had a HIDA scan done that showed no evidence of acute cholecystitis but decreased ejection fraction of the gallbladder. She was evaluated by Dr. Alvares who does not think we are dealing with gallbladder etiology. In the meantime, the patient still has epigastric discomfort. No nausea, vomiting. She states that she feels a bit better today. She complains of abdominal bloating and fullness also. No fever, chills or night sweats. PHYSICAL EXAMINATION: She appears comfortable. No apparent distress. Vital signs stable. The blood pressure is 143/86, pulse rate 108 per minute. HEENT examination unremarkable. Conjunctivae pink. Sclerae anicteric. Oral cavity no lesions. Neck no jugular venous distention or lymphadenopathy. Chest was clear to auscultation. HEART: Regular rate and rhythm. ABDOMEN: Soft. There was tenderness in the epigastric and right upper quadrant area. Bowel sounds are positive. No organomegaly. There was tenderness in the epigastric and right upper quadrant area. No rebound . Extremities no pedal edema. Skin no rashes. Neuro: She is alert and oriented x3. No focal deficits. LABS: From today WBC is 22, hemoglobin 10.8, platelets are 191, BUN 42, creatinine 0.98. AST, ALT 37 and 31 respectively. T bilirubin and alkaline phosphatase are normal. IMPRESSION: This is a lady who presents to the hospital with epigastric and right upper quadrant abdominal pain for the last 3 days duration. Ultrasound as well as CT scan of the abdomen was unremarkable. There was questionable positive Lou's sign. However, the patient did have a HIDA scan done yesterday that did not show any evidence of acute cholecystitis. There was decreased ejection fraction of the gallbladder. I discussed with Dr. Alvares this morning and no plans on any surgical intervention at the present time. The patient was already started on broad-spectrum antibiotics because of persistent leukocytosis and right upper quadrant abdominal pain. The possibility of an upper GI pathology such as peptic ulcer disease cannot be excluded at the present time. RECOMMENDATIONS: 1. Continue with antibiotics. 2. We will start on clear liquid diet. 3. Continue with Protonix 40 mg daily. 4. We will proceed with an upper endoscopy tomorrow. Thank you for this consultation. MMODL / IJN: [id number] /
--- NOTE | 2018-01-02 13:22 | CONS ---
CONSULTATION CHIEF COMPLAINT: Preop cardiac evaluation. HISTORY OF PRESENT ILLNESS: Arminda is a 72-year-old lady with history of COPD, diabetes, hypertension, dyslipidemia, mild dementia, and chronic atrial fibrillation, who is admitted to the hospital primarily with abdominal pain, discomfort, fullness, and has been diagnosed with cholecystitis. I have been asked to see the patient for preop evaluation prior to possible cholecystectomy. At the time of my evaluation, patient appears comfortable at rest, pleasantly confused. Denies any chest pain or difficulty in breathing. The patient was on Eliquis for atrial fibrillation, which is currently on hold for the surgery. The patient has a history of diastolic heart failure and COPD. PAST MEDICAL HISTORY: Significant for hypertension, diabetes, dyslipidemia, COPD, heart failure, atrial fibrillation. MEDICATIONS: At home included Lipitor, vitamin D, Advair, Neurontin, Amaryl, insulin, Mobic, Pepcid, omeprazole, albuterol, Claritin-D, Glucophage, Eliquis, Cozaar, Toprol-XL, Aldactone and Lasix. ALLERGIES: CODEINE. FAMILY HISTORY: Negative for premature coronary artery disease. SOCIAL HISTORY AND REVIEW OF SYSTEMS: I am unable to obtain from the patient. REVIEW OF SYMPTOMS: Review of systems have been unable to obtain from the patient. I reviewed the chart and reviewed other notations in the chart. EXAM: Is comfortable at rest. Heart rate is elevated at 108 beats per minute, irregular. Blood pressure is normal. There is no jugular venous distention. Chest exam reveals good air entry bilaterally. Heart exam reveals first and second heart sounds. No gallop. Irregular rhythm and a systolic murmur at the left lower sternal border. Abdomen is soft. Exam of extremities did not reveal any edema. Peripheral pulses are felt. EKG shows atrial fibrillation with nonspecific ST-T wave changes. LABS: Show a white cell count is 22, hemoglobin is 10.8, potassium is 3.9, creatinine is 0.98 cm. ASSESSMENT: 1. Preop cardiac evaluation. 2. Chronic atrial fibrillation with controlled ventricular rate. 3. History of diastolic heart failure. 4. Abdominal pain with elevated white cell count. PLAN: From cardiac standpoint, there are no contraindications for surgery under anesthesia. The patient had an echo in July that showed normal LV function with moderate pulmonary hypertension. The patient is on Eliquis and is currently on hold for more than 48 hours. If she is not going to have cholecystectomy as there is some confusion as to whether she is or she is not, please resume the Eliquis. The patient is supposed to have an EGD tomorrow morning. MMODL / IJN: [id number] /
[2018-01-02 17:12] LABS: Glucose,Whole Blood 125 mg/dL (75-99)
[2018-01-02 20:52] LABS: Glucose,Whole Blood 261 mg/dL (75-99)
[2018-01-02] MEDS: ACETAMINOPHEN TAB 325 MG TAB PO PRN (23:24)
[2018-01-03] MEDS: AMPICILLIN-SULBACTAM 3 GM in SODIUM CHLORIDE 0.9% 100 ML IVPB SCH ×4 (06:07→22:53)
[2018-01-03] MEDS: SYMBICORT 80-4.5 MCG INHALER INHALATION SCH ×2 (07:23→20:33)
[2018-01-03] MEDS: ALBUTEROL NEBULIZED 2.5 MG/3 ML INHALATION SCH ×4 (07:23→20:33)
[2018-01-03 07:40] LABS: Glucose,Whole Blood 143 mg/dL (75-99)
[2018-01-03] MEDS: INSULIN ASPART 100 UNIT/ML 1 ML 10 ML VIAL SQ SCH ×4 (07:45→21:07)
[2018-01-03] MEDS: ENOXAPARIN 40 MG/0.4 ML SYRINGE SQ SCH (08:26)
[2018-01-03] MEDS: PANTOPRAZOLE 40 MG/10 ML VIAL IVP SCH ×2 (08:27→20:01)
[2018-01-03] MEDS: GABAPENTIN 400 MG CAP PO SCH ×3 (08:28→21:07)
[2018-01-03] MEDS: METOPROLOL SUCCINATE (ER) 50 MG TAB.ER.24H PO SCH (08:28)
[2018-01-03] MEDS: SUCRALFATE 1 GM TAB PO SCH ×4 (08:28→20:02)
[2018-01-03] MEDS: FUROSEMIDE 40 MG TAB PO SCH ×2 (08:29→16:45)
[2018-01-03] MEDS: SPIRONOLACTONE 25 MG TAB PO SCH (08:29)
[2018-01-03] MEDS: LOSARTAN 50 MG TAB PO SCH (08:29)
[2018-01-03] MEDS: ACETAMINOPHEN TAB 325 MG TAB PO PRN ×2 (08:32→18:41)
[2018-01-03] MEDS: predniSONE 5 MG TAB PO SCH (08:32)
[2018-01-03 09:15] LABS: Basophils % (A) 0 %; Eosinophils % (A) 0 %; HCT 32.6 % (34.0-46.0); HGB 10.2 gm/dL (11.4-16.0); Hypochromasia Slight; Lymphocytes # (A) 1.7 k/uL (1.0-4.8); Lymphocytes % (A) 8 %; MCH 27.9 pg (25.0-35.0); MCHC 31.3 g/dL (31.0-37.0); Monocytes # (A) 0.9 k/uL (0-1.0); Monocytes % (A) 4 %; Neutrophils # (A) 18.2 k/uL (1.3-7.7); Neutrophils % (A) 86 %; Platelet Count 185 k/uL (150-450); RBC 3.66 m/uL (3.80-5.40); RDW 14.3 % (11.5-15.5); WBC 21.1 k/uL (3.8-10.6)
[2018-01-03 09:28] LABS: Calcium 8.4 mg/dL (8.4-10.2); Potassium 3.6 mmol/L (3.5-5.1); Total Bilirubin 0.5 mg/dL (0.2-1.3); Total Protein 5.8 g/dL (6.3-8.2)
--- NOTE | 2018-01-03 10:37 | P.PN ---
Subjective Progress Note Date: 01/03/18 Principal diagnosis: Abdominal pain, leukocytosis The patient's feeling better today. Denies any abdominal pain. She is a little confused but she does think she was able to tolerate the liquid just her today without any pain or nausea. Objective - Vital Signs Vital signs: Vital Signs Temp 100.2 F H 01/03/18 06:32 Pulse 88 01/03/18 07:33 Resp 16 01/03/18 06:32 BP 112/54 01/03/18 06:32 Pulse Ox 99 01/03/18 06:32 Intake & Output 01/02/18 01/03/18 01/03/18 18:59 06:59 18:59 Other: Voiding Method Bedside Commode # Voids 2 2 1 # Bowel Movements 0 - Constitutional General appearance: Present: cooperative, no acute distress - Gastrointestinal Gastrointestinal Comment(s): Significantly less tenderness than admission General gastrointestinal: Present: normal bowel sounds, soft. Absent: tenderness - Labs CBC & Chem 7: 01/03/18 08:51 01/03/18 08:51 Labs: Abnormal Lab Results - Last 24 Hours (Table) 01/02/18 01/02/18 01/02/18 Range/Units 11:19 17:10 20:51 WBC (3.8-10.6) k/uL RBC (3.80-5.40) m/uL Hgb (11.4-16.0) gm/dL Hct (34.0-46.0) % Neutrophils # (1.3-7.7) k/uL Chloride (98-107) mmol/L Carbon Dioxide (22-30) mmol/L BUN (7-17) mg/dL Glucose (74-99) mg/dL POC Glucose (mg/dL) 133 H 125 H 261 H (75-99) mg/dL Total Protein (6.3-8.2) g/dL Albumin (3.5-5.0) g/dL 01/03/18 01/03/18 01/03/18 Range/Units 07:18 08:51 08:51 WBC 21.1 H (3.8-10.6) k/uL RBC 3.66 L (3.80-5.40) m/uL Hgb 10.2 L (11.4-16.0) gm/dL Hct 32.6 L (34.0-46.0) % Neutrophils # 18.2 H (1.3-7.7) k/uL Chloride 97 L (98-107) mmol/L Carbon Dioxide 34 H (22-30) mmol/L BUN 41 H (7-17) mg/dL Glucose 148 H (74-99) mg/dL POC Glucose (mg/dL) 143 H (75-99) mg/dL Total Protein 5.8 L (6.3-8.2) g/dL Albumin 3.0 L (3.5-5.0) g/dL Microbiology - Last 24 Hours (Table) 12/31/17 21:50 Urine Culture - Final Urine,Clean Catch Assessment and Plan (1) Abdominal pain Current Visit: Yes Status: Acute Code(s): R10.9 - UNSPECIFIED ABDOMINAL PAIN SNOMED Code(s): 52715740 (2) Hydrops of gallbladder Current Visit: Yes Status: Acute Code(s): K82.1 - HYDROPS OF GALLBLADDER SNOMED Code(s): 26951115 (3) Personal history of lung cancer Current Visit: Yes Status: Acute Code(s): Z85.118 - PERSONAL HISTORY OF MALIGNANT NEOPLASM OF BRONCHUS AND LUNG SNOMED Code(s): 378656774 (4) History of atrial fibrillation Current Visit: Yes Status: Acute Code(s): Z86.79 - PERSONAL HISTORY OF OTHER DISEASES OF THE CIRCULATORY SYSTEM SNOMED Code(s): 278793222 Plan: The patient is going to undergo a EGD by Dr. Collins today. I'll check on the report of that later. Start on a diet after the EGD. Further recommendations to follow
--- NOTE | 2018-01-03 11:06 | XR ---
EXAMINATION TYPE: XR chest 2V DATE OF EXAM: 01/03/2018 COMPARISON: Prior chest x-ray 12/31/[address] abdomen pelvis 12/31/2017 HISTORY: Fever, leukocytosis TECHNIQUE: Frontal and lateral views of the chest are obtained. FINDINGS: Patchy basilar density is present in the left lower lobe and has been noted on prior exam. No evident pneumothorax. Patient is rotated. Heart size is likely stable and enlarged. There are cor onary artery and mitral annular calcifications. There are prominent lung volumes possibly indicative of COPD. IMPRESSION: Findings of the left lung base thought likely to be chronic, correlate to exclude pneumo rena. Coronary artery disease and cardiomegaly.
[2018-01-03 12:22] LABS: Glucose,Whole Blood 177 mg/dL (75-99)
--- NOTE | 2018-01-03 12:35 | P.PN ---
Subjective Progress Note Date: 01/03/18 Patient is a 72-year-old female who presented to [facility] emergency room was a chief complaint of abdominal pain patient describes a fullness and bloating and pain in the right upper quadrant there is no nausea or vomiting no diarrhea last bowel movement 3 days ago. Patient was evaluated in emergency room computed tomography scan of the abdomen and pelvis did not reveal any acute abnormality ultrasound of the abdomen showed hydrops of the gallbladder and common bile duct dilatation. Patient was admitted under surgical service medical consultation was requested for management while hospitalized. 01/03/2018 patient scheduled for EGD today. HIDA scan showed no evidence of an acute cholecystitis. The ejection fraction was diminished. Patient reports that her abdominal pain has resolved. She is still having low-grade temps 100.700.2. Yesterday T-max 101.6. White count has gone down from 22.1-21.1. Infectious disease is consulted. Patient remains on Unasyn. Patient denies any chest pain or shortness of breath. Denies cough. Denies any nausea or vomiting. Denies bowel movement changes or urinary symptoms. Chest x-ray pending this morning Objective - Vital Signs Vital signs: Vital Signs Temp 100.2 F H 01/03/18 06:32 Pulse 82 01/03/18 11:25 Resp 16 01/03/18 06:32 BP 112/54 01/03/18 06:32 Pulse Ox 99 01/03/18 06:32 Intake & Output 01/02/18 01/03/18 01/03/18 18:59 06:59 18:59 Other: Voiding Method Bedside Commode # Voids 2 2 1 # Bowel Movements 0 - Exam Head normocephalic Neck supple Lungs clear to auscultation bilaterally no wheezing or crackles Heart regular rate and rhythm S1-S2, no rub or gallop Abdomen is soft nontender nondistended positive bowel sounds no hepatosplenomegaly Extremities no edema Neuro alert and orientated to 3 - Labs CBC & Chem 7: 01/03/18 08:51 01/03/18 08:51 Labs: Abnormal Lab Results - Last 24 Hours (Table) 01/02/18 01/02/18 01/03/18 Range/Units 17:10 20:51 07:18 WBC (3.8-10.6) k/uL RBC (3.80-5.40) m/uL Hgb (11.4-16.0) gm/dL Hct (34.0-46.0) % Neutrophils # (1.3-7.7) k/uL Chloride (98-107) mmol/L Carbon Dioxide (22-30) mmol/L BUN (7-17) mg/dL Glucose (74-99) mg/dL POC Glucose (mg/dL) 125 H 261 H 143 H (75-99) mg/dL Total Protein (6.3-8.2) g/dL Albumin (3.5-5.0) g/dL 01/03/18 01/03/18 01/03/18 Range/Units 08:51 08:51 12:19 WBC 21.1 H (3.8-10.6) k/uL RBC 3.66 L (3.80-5.40) m/uL Hgb 10.2 L (11.4-16.0) gm/dL Hct 32.6 L (34.0-46.0) % Neutrophils # 18.2 H (1.3-7.7) k/uL Chloride 97 L (98-107) mmol/L Carbon Dioxide 34 H (22-30) mmol/L BUN 41 H (7-17) mg/dL Glucose 148 H (74-99) mg/dL POC Glucose (mg/dL) 177 H (75-99) mg/dL Total Protein 5.8 L (6.3-8.2) g/dL Albumin 3.0 L (3.5-5.0) g/dL Microbiology - Last 24 Hours (Table) 12/31/17 21:50 Urine Culture - Final Urine,Clean Catch Assessment and Plan Assessment: #1 right upper quadrant abdominal pain: Patient seen by surgical service. No surgical intervention warranted. HIDA scan had shown a decreased ejection fraction of the gallbladder but no evidence of acute cholecystitis. Patient seen by GI service and planning to proceed with EGD today #2 chronic atrial fibrillation . Eliquis on hold for procedure. #3 history of chronic diastolic congestive heart failure without evidence of exacerbation at this time #4 underlying history of COPD stable at this time #5 previous history of lung cancer #[address] Cleveland consulted. Patient currently on Unasyn. Chest x-ray and blood culture pending. Elevated white count may be partially steroid related. She is on chronic cohen of prednisone at home. However, patient continues to have fevers. I performed an examination of the patient and discussed their management with the physician [employer]. I have reviewed the Physician [employer]'s notes and agree with the documented findings and plan of care
--- NOTE | 2018-01-03 13:59 | P.PN ---
Subjective Progress Note Date: 01/03/18 Mrs. Tavarez is seen and examined this morning. She follows with Dr. 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 She is scheduled to undergo an EGD this morning. Surgery not planned at this time pending EGD results. Eliquis continues to be on hold. Chest xray this morning reveals possibly pneumoina left lower lobe. She is resting comfortably in bed with mild shortness of breath appreciated with conversation. She denies symptoms of chest pain, dizziness, palpitations, nausea or vomiting. Blood pressure 112/54 heart rate 88 fever 100.2F this morning. Objective - Vital Signs Vital signs: Vital Signs Temp 100.2 F H 01/03/18 06:32 Pulse 88 01/03/18 07:33 Resp 16 01/03/18 06:32 BP 112/54 01/03/18 06:32 Pulse Ox 99 01/03/18 06:32 Intake & Output 01/02/18 01/03/18 01/03/18 18:59 06:59 18:59 Other: Voiding Method Bedside Commode # Voids 2 2 1 # Bowel Movements 0 - Exam GENERAL: Well-appearing, well-nourished and in no acute distress. NECK: Supple without JVD or thyromegaly. LUNGS: Breath sounds clear to auscultation bilaterally. Respiration equal and unlabored. No wheezes, rales or rhonchi. Diminished b/l. HEART: Irregular rate and rhythm with systolic murmur, no rubs or gallops. S1 and S2 heard. EXTREMITIES: Normal range of motion, no edema. No clubbing or cyanosis. Peripheral pulses intact and strong. - Labs CBC & Chem 7: 01/03/18 08:51 01/03/18 08:51 Labs: Abnormal Lab Results - Last 24 Hours (Table) 01/02/18 01/02/18 01/02/18 Range/Units 11:19 17:10 20:51 WBC (3.8-10.6) k/uL RBC (3.80-5.40) m/uL Hgb (11.4-16.0) gm/dL Hct (34.0-46.0) % Neutrophils # (1.3-7.7) k/uL Chloride (98-107) mmol/L Carbon Dioxide (22-30) mmol/L BUN (7-17) mg/dL Glucose (74-99) mg/dL POC Glucose (mg/dL) 133 H 125 H 261 H (75-99) mg/dL Total Protein (6.3-8.2) g/dL Albumin (3.5-5.0) g/dL 01/03/18 01/03/18 01/03/18 Range/Units 07:18 08:51 08:51 WBC 21.1 H (3.8-10.6) k/uL RBC 3.66 L (3.80-5.40) m/uL Hgb 10.2 L (11.4-16.0) gm/dL Hct 32.6 L (34.0-46.0) % Neutrophils # 18.2 H (1.3-7.7) k/uL Chloride 97 L (98-107) mmol/L Carbon Dioxide 34 H (22-30) mmol/L BUN 41 H (7-17) mg/dL Glucose 148 H (74-99) mg/dL POC Glucose (mg/dL) 143 H (75-99) mg/dL Total Protein 5.8 L (6.3-8.2) g/dL Albumin 3.0 L (3.5-5.0) g/dL Microbiology - Last 24 Hours (Table) 12/31/17 21:50 Urine Culture - Final Urine,Clean Catch Assessment and Plan Assessment: ASSESSMENT 1. Pre-op cardiac evaluation for possible cholecystectomy 2. Chronic persistent atrial fibrillation on usp anticoagulation with Eliquis, controlled ventricular response 3. History of diastolic heart failure, currently euvolemic 4. Leukocytosis with fever PLAN Continue with medical management. Resume eliquis as soon as possible if not having surgery or as soon as possible post-operatively. We will continue to follow as needed. Please call with further questions of concerns. Nurse Practitioner note has been reviewed, I agree with a documented findings and plan of care. Patient was seen and examined.
[2018-01-03] MEDS ORDERED: IV FLUID CONTINUATION 1,000 ML IV ONE (14:19)
[2018-01-03] MEDS ORDERED: PROPOFOL 10 MG/ML 20 ML VIAL IV ONE (14:19)
[2018-01-03] MEDS ORDERED: LIDOCAINE 1% INJ 10MG/ML (20 ML MDV) ONE (14:19)
--- NOTE | 2018-01-03 14:31 | P.PCN ---
Date of Procedure: 01/03/18 Procedure(s) Performed: BRIEF HISTORY: Patient is a 72-year-old, pleasant,white female, admitted to the hospital with severe epigastric right upper quadrant abdominal pain as well as leukocytosis. She had ultrasound of the abdomen, CT of the Abdomen that was unremarkable. Subsequently she had a HIDA scan and there was no evidence of acute cholecystitis. However patient continued to have persistent epigastric and right upper quadrant abdominal pain and hence she is scheduled for an upper endoscopy to evaluate further and rule out peptic ulcer disease PROCEDURE PERFORMED: Esophagogastroduodenoscop withbiopsy PREOPERATIVE DIAGNOSIS: epigastric and right upper quadrant abdominal pain of 4 days' duration. IV sedation per anesthesia. PROCEDURE: After informed consent was obtained, the patient was brought into the endoscopy unit. IV sedation was administered by Anesthesia under continuous monitoring. Initially the Olympus GIF-140 video endoscope was inserted into the mouth. Esophagus intubated without any difficulty. It was gradually advanced into the stomach and duodenum and carefully examined. The bulb and the second part of the duodenum appeared normal. The scope at this time was withdrawn to the stomach, adequately insufflated with air, and upon careful examination, mucosa of the antrum, body,had diffuse gastritis with multiple areas of erythema and scattered erosions and biopsies were done from this area. The cardia and the fundus appeared normal. The scope was then withdrawn into the esophagus. The GE junction was located at 39 cm from the incisors. The esophagus appeared normal. There were no erosions or ulcerations seen and the patient tolerated the procedure well. IMPRESSION: 1 Diffuse gastritis involving the body and antrum of the stomach status post multiple biopsies. 2.No evidence of esophagitis or peptic ulcer disease. RECOMMENDATIONS: The findings of this examination were discussed with the patient as well as a family. She was advised to follow with the biopsy results. In the meantime we'll start her back on clear liquid diet. Continue with PPI and antibiotics.
[2018-01-03 14:55] VITALS: BMI 32.1
[2018-01-03 18:02] LABS: Glucose,Whole Blood 124 mg/dL (75-99)
[2018-01-03] MEDS: APIXABAN 5 MG TAB PO SCH (20:01)
[2018-01-03 20:44] LABS: Glucose,Whole Blood 244 mg/dL (75-99)
--- NOTE | 2018-01-03 23:51 | P.CONS ---
History of Present Illness - Reason for Consult Consult date: 01/03/18 - Chief Complaint Abdominal pain - History of Present Illness 72-year-old female presents to the emergency center feeling very poorly for relatively short period of time the patient relates that she had a somewhat sudden onset of fullness and discomfort in her abdomen. It progressed. It was mostly in the right upper quadrant. She is having some difficulty even with discomfort with breathing. And was not able to eat because she was having so much fullness and pain. She has a presented to the emergency center and underwent imaging studies that included computed tomography scan. She has a history of a cholecystectomy. No significant abnormality is were seen. Her abdominal pain persisted and she was noticed to have some mild anemia. As when she was seen by gastroenterology and an EGD was performed today which revealed evidence of some diffuse gastritis but no ulceration or perforation. The patient is feeling somewhat better since her testing in that the significant rebound discomfort has improved. However she still does feel somewhat poorly overall. She's had significant fever up to 101.6 and had leukocytosis also. No evidence of any infection has been found to date. Infectious disease consultation was requested. Review of Systems HEENT:Denies headache or acute visual change. Denies sinus or mouth discomforts. Denies neck stiffness or pain. Denies significant oral cavity pain. Denies difficulty on swallowing. Lungs: Denies significant shortness of breath, cough, sputum production, or hemoptysis. Cardiovascular: Denies significant shortness of breath, chest pain, chest wall pain, orthopnea, dyspnea on exertion, syncope Gastrointestinal as per the HPI had significant abdominal pain. The patient is denying nausea or emesis. Denies hematemesis or melena. She's had a bowel movement today without significant diarrhea. Musculoskeletal: denies significant myalgias or arthralgias. No new joint swelling. Denies new back pain. Skin: Denies new rash or lesions. No new ulcers or wounds are related.. Neuro: Denies headache or visual change. Denies any new onset weakness or difficulty with ambulation. Denies falls or seizures. Psychiatric:Denies anxiety or depression. Endocrine: Denies significant fatigue, denies significant weight loss or weight gain. 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 History of Any Multi-Drug Resistant Organisms: None Reported Past Surgical History: Heart Catheterization With Stent, Tubal Ligation Additional Past Surgical History / Comment(s): Left lower lobe lung removed, right shoulder rotator cuff. Past Anesthesia/Blood Transfusion Reactions: No Reported Reaction Additional Past Anesthesia/Blood Transfusion Reaction / Comm: Claustrophobia Date of Last Stent Placement:: unk Past Psychological History: No Psychological Hx Reported Additional Psychological History / Comment(s): Pt. lives w/ significant other of 30 years, uses a cane or walker when ambulating. She has 3 adult children from a prior marriage. A dog in the home. 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 No international travel. No experience Smoking Status: Former smoker Past Alcohol Use History: None Reported Past Drug Use History: None Reported - Past Family History Mother History Unknown: Yes Family Medical History: No Reported History Father Family Medical History: Diabetes Mellitus Medications and Allergies Home Medications and Allergies Comment(s): Current Medications Acetaminophen (Tylenol Tab) 650 mg PO Q6HR PRN PRN Reason: Fever and/ or Pain Last Admin: 01/03/18 18:41 Dose: 650 mg Albuterol Sulfate (Ventolin Nebulized) 2.5 mg INHALATION RT-QID [facility] Last Admin: 01/03/18 20:33 Dose: 2.5 mg Apixaban (Eliquis) 5 mg PO BID [facility] Last Admin: 01/03/18 20:01 Dose: 5 mg Budesonide/Formoterol Fumarate (Symbicort 80-4.5 Mcg Inhaler) 2 puff INHALATION RT-BID [facility] Last Admin: 01/03/18 20:33 Dose: 2 puff Furosemide (Lasix) 40 mg PO BID@0900,1600 [facility] Last Admin: 01/03/18 16:45 Dose: 40 mg Gabapentin (Neurontin) 800 mg PO TID [facility] Last Admin: 01/03/18 21:07 Dose: 800 mg Ampicillin Sodium/Sulbactam (Sodium 3 gm/ Sodium Chloride) 100 mls @ 100 mls/ hr IVPB Q6HR [facility] Last Admin: 01/03/18 22:53 Dose: 100 mls/hr Insulin Aspart (Novolog) 0 unit SQ ACHS [facility] PRN Reason: Protocol Last Admin: 01/03/18 21:07 Dose: 8 unit Losartan Potassium (Cozaar) 100 mg PO DAILY [facility] Last Admin: 01/03/18 08:29 Dose: 100 mg Metoprolol Succinate (Toprol Xl) 50 mg PO DAILY [facility] Last Admin: 01/03/18 08:28 Dose: 50 mg Pantoprazole Sodium (Protonix) 40 mg IVP BID [facility] Last Admin: 01/03/18 20:01 Dose: 40 mg Prednisone () 5 mg PO DAILY [facility] Last Admin: 01/03/18 08:32 Dose: 5 mg Spironolactone (Aldactone) 25 mg PO DAILY [facility] Last Admin: 01/03/18 08:29 Dose: 25 mg Sucralfate (Carafate) 1 gm PO ACHS [facility] Last Admin: 01/03/18 20:02 Dose: 1 gm Home Medications Medication Instructions Recorded Confirmed Type Atorvastatin [Lipitor] 40 mg PO HS 11/17/16 12/31/17 History Cholecalciferol [Vitamin D3] 4,000 unit PO DAILY 11/17/16 12/31/17 History Cyanocobalamin [Vitamin B-12] 500 mcg PO DAILY 11/17/16 12/31/17 History Fluticasone/Salmeterol [Advair 1 puff INHALATION RT-BID 11/17/16 12/31/17 History 250-50 Diskus] Gabapentin 800 mg PO TID 11/17/16 12/31/17 History Glimepiride [Amaryl] 4 mg PO AC-BID 11/17/16 12/31/17 History Insulin Aspart [NovoLOG Flexpen] 20 units SQ AC-TID 11/17/16 12/31/17 History Insulin Degludec [Tresiba 98 unit SQ DAILY 11/17/16 12/31/17 History Flextouch U-200] Meloxicam [Mobic] 7.5 mg PO HS 11/17/16 12/31/17 History Nizatidine [Axid] 150 mg PO DAILY 11/17/16 12/31/17 History Omeprazole 20 mg PO BID 11/17/16 12/31/17 History Albuterol Inhaler [Ventolin Hfa 2 puff INHALATION RT-BID 07/22/17 12/31/17 History Inhaler] Albuterol Nebulized [Ventolin 2.5 mg INHALATION RT-QID 07/22/17 12/31/17 History Nebulized] Loratadine [Claritin] 10 mg PO DAILY 07/22/17 12/31/17 History metFORMIN HCL [Glucophage] 500 mg PO BID 07/22/17 12/31/17 History Apixaban [Eliquis] 5 mg PO BID #60 tab 08/02/17 12/31/17 Rx Losartan [Cozaar] 100 mg PO DAILY #30 tab 08/02/17 12/31/17 Rx Metoprolol Succinate (ER) [Toprol 50 mg PO DAILY #60 tab.er.24h 08/02/17 Rx XL] Spironolactone [Aldactone] 25 mg PO DAILY #30 tab 08/02/17 12/31/17 Rx Furosemide [Lasix] 40 mg PO BID 12/31/17 12/31/17 History Sucralfate [Carafate] 1 gm PO ACHS 12/31/17 12/31/17 History predniSONE 5 mg PO DAILY 12/31/17 12/31/17 History Allergies Allergy/AdvReac Type Severity Reaction Status Date / Time codeine Allergy Unknown Verified 12/31/17 20:01 Physical Exam Vitals: Vital Signs Temp Pulse Pulse Resp BP BP Pulse Ox 01/03/18 23:00 97.8 F 93 16 125/54 95 01/03/18 20:50 78 01/03/18 20:33 80 01/03/18 20:23 98.3 F 01/03/18 17:24 82 01/03/18 17:06 80 97 01/03/18 16:15 86 16 173/78 98 01/03/18 16:00 99 16 176/67 97 01/03/18 15:45 88 16 123/72 97 01/03/18 15:30 100.0 F H 94 17 125/49 97 01/03/18 14:29 99.7 F H 97 18 103/49 91 L 01/03/18 11:25 82 01/03/18 11:15 80 01/03/18 10:00 99.3 F 01/03/18 07:33 88 01/03/18 07:24 88 01/03/18 06:32 100.2 F H 94 16 112/54 99 Intake and Output 01/03/18 01/03/18 01/04/18 14:59 22:59 06:59 Intake Total 100 100 Balance 100 100 Intake: IV 100 Intake, IV Titration 100 Amount Ampicillin-Sulbactam 3 gm 100 In Sodium Chloride 0.9% 100 ml @ 100 mls/hr IVPB Q6HR [facility] Rx#:[id number] Other: Voiding Method Bedside Commode Bedside Commode # Voids 1 2 Weight 96 kg Pleasant 72-year-old woman who is comfortable at this point in time. T-max in the last day is 101.6, most recent temperature is 99.7 HEENT: Anicteric conjunctiva are pink and moist nasal mucosa grossly intact without significant lesions, there is no thrush. Neck: The neck is supple without significant lymphadenopathy or thyromegaly. Lungs: Good bilateral air entry without significant crackles or wheezing. There is no significant bronchial sounds. There is no egophony or dullness. Diminished breath sounds at left base which cooperates her site of prior surgery. Heart: Regular rate and rhythm with an audible S1-S2, no S3 no S4. There is no significant murmur click or rub, PMI was nondisplaced. Abdomen: Positive bowel sounds soft and nontender without palpable masses or organomegaly. There was no guarding or rebound. Extremities: The upper extremities have excellent pulses they are symmetric, no significant petechiae or telangiectasia. No splinter hemorrhages were noted. The lower extremities are free from significant edema. The peripheral pulses were 2+ and symmetric. Neuro: Awake alert oriented to person place and time. There are no acute new gross focal sensory motor deficits. Results CBC & Chem 7: 01/03/18 08:51 01/03/18 08:51 Labs: Abnormal Lab Results - Last 24 Hours (Table) 01/03/18 01/03/18 01/03/18 Range/Units 07:18 08:51 08:51 WBC 21.1 H (3.8-10.6) k/uL RBC 3.66 L (3.80-5.40) m/uL Hgb 10.2 L (11.4-16.0) gm/dL Hct 32.6 L (34.0-46.0) % Neutrophils # 18.2 H (1.3-7.7) k/uL Chloride 97 L (98-107) mmol/L Carbon Dioxide 34 H (22-30) mmol/L BUN 41 H (7-17) mg/dL Glucose 148 H (74-99) mg/dL POC Glucose (mg/dL) 143 H (75-99) mg/dL Total Protein 5.8 L (6.3-8.2) g/dL Albumin 3.0 L (3.5-5.0) g/dL 01/03/18 01/03/18 01/03/18 Range/Units 12:19 17:38 20:42 WBC (3.8-10.6) k/uL RBC (3.80-5.40) m/uL Hgb (11.4-16.0) gm/dL Hct (34.0-46.0) % Neutrophils # (1.3-7.7) k/uL Chloride (98-107) mmol/L Carbon Dioxide (22-30) mmol/L BUN (7-17) mg/dL Glucose (74-99) mg/dL POC Glucose (mg/dL) 177 H 124 H 244 H (75-99) mg/dL Total Protein (6.3-8.2) g/dL Albumin (3.5-5.0) g/dL Laboratory Results WBC 21.1 k/uL (3.8-10.6) H 01/03/18 08:51 RBC 3.66 m/uL (3.80-5.40) L 01/03/18 08:51 Hgb 10.2 gm/dL (11.4-16.0) L 01/03/18 08:51 Hct 32.6 % (34.0-46.0) L 01/03/18 08:51 MCV 89.0 fL (80.0-100.0) 01/03/18 08:51 MCH 27.9 pg (25.0-35.0) 01/03/18 08:51 MCHC 31.3 g/dL (31.0-37.0) 01/03/18 08:51 RDW 14.3 % (11.5-15.5) 01/03/18 08:51 Plt Count 185 k/uL (150-450) 01/03/18 08:51 Neutrophils % 86 % 01/03/18 08:51 Lymphocytes % 8 % 01/03/18 08:51 Monocytes % 4 % 01/03/18 08:51 Eosinophils % 0 % 01/03/18 08:51 Basophils % 0 % 01/03/18 08:51 Neutrophils # 18.2 k/uL (1.3-7.7) H 01/03/18 08:51 Lymphocytes # 1.7 k/uL (1.0-4.8) 01/03/18 08:51 Monocytes # 0.9 k/uL (0-1.0) 01/03/18 08:51 Eosinophils # 0.0 k/uL (0-0.7) 01/03/18 08:51 Basophils # 0.0 k/uL (0-0.2) 01/03/18 08:51 Hypochromasia Slight 01/03/18 08:51 Sodium 142 mmol/L (137-145) 01/03/18 08:51 Potassium 3.6 mmol/L (3.5-5.1) 01/03/18 08:51 Chloride 97 mmol/L (98-107) L 01/03/18 08:51 Carbon Dioxide 34 mmol/L (22-30) H 01/03/18 08:51 Anion Gap 11 mmol/L 01/03/18 08:51 BUN 41 mg/dL (7-17) H 01/03/18 08:51 Creatinine 0.95 mg/dL (0.52-1.04) 01/03/18 08:51 Est GFR (CKD-EPI)AfAm 69 (>60 ml/min/1.73 sqM) 01/03/18 08:51 Est GFR (CKD-EPI)NonAf 60 (>60 ml/min/1.73 sqM) 01/03/18 08:51 Glucose 148 mg/dL (74-99) H 01/03/18 08:51 POC Glucose (mg/dL) 244 mg/dL (75-99) H 01/03/18 20:42 POC Glu General Surgeon ID Maryan Soares 01/03/18 20:[address] Glu mg/dL 183 12/31/17 19:58 Hemoglobin A1c 8.0 % (4.0-6.0) H 12/31/17 19:58 Plasma Lactic Acid [place] 0.7 mmol/L (0.7-2.0) 01/02/18 08:43 Calcium 8.4 mg/dL (8.4-10.2) 01/03/18 08:51 Phosphorus 5.0 mg/dL (2.5-4.5) H 12/31/17 19:58 Magnesium 2.2 mg/dL (1.6-2.3) 12/31/17 19:58 Total Bilirubin 0.5 mg/dL (0.2-1.3) 01/03/18 08:51 AST 36 U/L (14-36) 01/03/18 08:51 ALT 30 U/L (9-52) 01/03/18 08:51 Alkaline Phosphatase 123 U/L (38-126) 01/03/18 08:51 Total Protein 5.8 g/dL (6.3-8.2) L 01/03/18 08:51 Albumin 3.0 g/dL (3.5-5.0) L 01/03/18 08:51 Amylase 81 U/L (30-110) 12/31/17 19:58 Lipase 59 U/L (23-300) 12/31/17 19:58 Urine Color Light Yellow 12/31/17 21:50 Urine Appearance Clear (Clear) 12/31/17 21:50 Urine pH 8.0 (5.0-8.0) 12/31/17 21:50 Ur Specific [place] 1.035 (1.001-1.035) 12/31/17 21:50 Urine Protein 2+ (Negative) H 12/31/17 21:50 Urine Glucose (UA) Negative (Negative) 12/31/17 21:50 Urine Ketones Negative (Negative) 12/31/17 21:50 Urine Blood Negative (Negative) 12/31/17 21:50 Urine Nitrite Negative (Negative) 12/31/17 21:50 Urine Bilirubin Negative (Negative) 12/31/17 21:50 Urine Urobilinogen <2.0 mg/dL (<2.0) 12/31/17 21:50 Ur Leukocyte Esterase Small (Negative) H 12/31/17 21:50 Urine RBC 3 /hpf (0-5) 12/31/17 21:50 Urine WBC 16 /hpf (0-5) H 12/31/17 21:50 Ur Squamous Epith Cells 8 /hpf (0-4) H 12/31/17 21:50 Microbiology 12/31/17 21:50 Urine,Clean Catch Urine Culture - Final Chest x-ray: report reviewed CT scan - chest: report reviewed (Computed tomography scan chest shows evidence the 2 cm right lower lobe sub-pleural mass which is new from the last image) Assessment and Plan (1) Fever Narrative/Plan: 72-year-old female presents to Hospital feeling poorly with significant right upper quadrant abdominal pain. Computed tomography scan was performed without evidence of significant pathology except a new 2 cm right lower lobe sub-pleural mass. Her pain was significant and consequently was seen by gastroenterology and EGD has been performed that showed evidence of diffuse gastritis but without ulceration. No distinct etiology of her pain was noted. However with her fever and leukocytosis appears to have an underlying infection there is a concern that the abnormality is seen in the subpleural space could be an underlying infection. The patient has been on prednisone 5 mg a day which could be part of the current gastritis and some of her symptomatology. However this low-dose of prednisone is not likely the cause her significant leukocytosis. Cultures are in process. Lactic acid was normal. Urinalysis and culture are negative. She' s responding to current antibiotic therapy of Unasyn and this will continue. May require further evaluation of the 2 cm subpleural mass. Current Visit: Yes Status: Acute Code(s): R50.9 - FEVER, UNSPECIFIED SNOMED Code(s): 078581532 (2) Leukocytosis (leucocytosis) Current Visit: Yes Status: Acute Code(s): D72.829 - ELEVATED WHITE BLOOD CELL COUNT, UNSPECIFIED SNOMED Code(s): 868048011 (3) History of lung cancer Current Visit: Yes Status: Acute Code(s): Z85.118 - PERSONAL HISTORY OF MALIGNANT NEOPLASM OF BRONCHUS AND LUNG SNOMED Code(s): 935263595
[2018-01-04] MEDS: AMPICILLIN-SULBACTAM 3 GM in SODIUM CHLORIDE 0.9% 100 ML IVPB SCH ×3 (05:22→18:05)
[2018-01-04 07:13] LABS: Glucose,Whole Blood 204 mg/dL (75-99)
[2018-01-04] MEDS: SYMBICORT 80-4.5 MCG INHALER INHALATION SCH ×2 (07:30→19:19)
[2018-01-04] MEDS: ALBUTEROL NEBULIZED 2.5 MG/3 ML INHALATION SCH ×4 (07:30→19:19)
[2018-01-04] MEDS: INSULIN ASPART 100 UNIT/ML 1 ML 10 ML VIAL SQ SCH ×4 (08:06→21:35)
[2018-01-04] MEDS: SUCRALFATE 1 GM TAB PO SCH ×4 (08:06→21:14)
[2018-01-04] MEDS: APIXABAN 5 MG TAB PO SCH ×2 (08:06→21:15)
[2018-01-04] MEDS: GABAPENTIN 400 MG CAP PO SCH ×3 (08:06→21:14)
[2018-01-04] MEDS: FUROSEMIDE 40 MG TAB PO SCH ×2 (08:06→16:45)
[2018-01-04] MEDS: PANTOPRAZOLE 40 MG/10 ML VIAL IVP SCH ×2 (08:07→21:15)
[2018-01-04] MEDS: predniSONE 5 MG TAB PO SCH (08:07)
[2018-01-04] MEDS: LOSARTAN 50 MG TAB PO SCH (08:07)
[2018-01-04] MEDS: SPIRONOLACTONE 25 MG TAB PO SCH (08:07)
[2018-01-04] MEDS: METOPROLOL SUCCINATE (ER) 50 MG TAB.ER.24H PO SCH (08:07)
[2018-01-04 08:53] LABS: Albumin 2.9 g/dL (3.5-5.0); Calcium 8.3 mg/dL (8.4-10.2); Total Bilirubin 0.4 mg/dL (0.2-1.3); Total Protein 5.8 g/dL (6.3-8.2)
[2018-01-04 09:00] LABS: Basophils % (A) 0 %; Eosinophils # (A) 0.1 k/uL (0-0.7); Eosinophils % (A) 1 %; HCT 32.4 % (34.0-46.0); HGB 10.3 gm/dL (11.4-16.0); Hypochromasia Slight; Lymphocytes # (A) 1.5 k/uL (1.0-4.8); Lymphocytes % (A) 9 %; MCH 28.3 pg (25.0-35.0); MCHC 31.9 g/dL (31.0-37.0); MCV 88.9 fL (80.0-100.0); Mean Platelet Volume 7.6; Monocytes # (A) 0.8 k/uL (0-1.0); Monocytes % (A) 5 %; Neutrophils # (A) 14.4 k/uL (1.3-7.7); Neutrophils % (A) 85 %; Platelet Count 212 k/uL (150-450); RBC 3.65 m/uL (3.80-5.40)
--- NOTE | 2018-01-04 11:01 | P.PN ---
Subjective Progress Note Date: 01/04/18 Principal diagnosis: Epigastric right upper quadrant abdominal pain Feels better this morning. Abdominal pain improved. Status post EGD with findings of diffuse gastritis no evidence of peptic ulcer disease. White count 17 improved from 21. T-max 100.2. Objective - Vital Signs Vital signs: Vital Signs Temp 99.1 F 01/04/18 06:29 Pulse 108 H 01/04/18 07:42 Resp 16 01/04/18 06:29 BP 138/58 01/04/18 06:29 Pulse Ox 93 L 01/04/18 07:33 Intake & Output 01/03/18 01/04/18 01/04/18 18:59 06:59 18:59 Intake Total 200 Balance 200 Weight 96 kg 101.5 kg Intake: IV 100 Intake, IV Titration 100 Amount Ampicillin-Sulbactam 3 gm 100 In Sodium Chloride 0.9% 100 ml @ 100 mls/hr IVPB Q6HR [facility] Rx#:[id number] Other: Voiding Method Bedside Commode Bedside Commode # Voids 2 3 - Exam General appearance: The patient is alert, oriented, in no acute distress. HET: Head is normocephalic and atraumatic. Pupils are equal and reactive. Oropharynx is clear without lesions. Neck: Supple without lymphadenopathy. Trachea midline. Heart: S1 S2. Regular rate and rhythm. Lungs: No crackles or wheezes are heard. Abdomen: Soft, mild midepigastric tenderness, nondistended with bowel sounds. No peritoneal signs. No palpable organomegaly or masses. Extremities: Normal skin color and turgor. No cyanosis, rash, ulceration, clubbing, or edema. Radial and pedal pulses are 2/4 bilaterally. Neurological: No focal deficits. Strength and sensation are grossly intact. - Labs CBC & Chem 7: 01/04/18 08:20 01/04/18 08:20 Labs: Abnormal Lab Results - Last 24 Hours (Table) 01/03/18 01/03/18 01/03/18 Range/Units 12:19 17:38 20:42 WBC (3.8-10.6) k/uL RBC (3.80-5.40) m/uL Hgb (11.4-16.0) gm/dL Hct (34.0-46.0) % Neutrophils # (1.3-7.7) k/uL Chloride (98-107) mmol/L Carbon Dioxide (22-30) mmol/L BUN (7-17) mg/dL Glucose (74-99) mg/dL POC Glucose (mg/dL) 177 H 124 H 244 H (75-99) mg/dL Calcium (8.4-10.2) mg/dL AST (14-36) U/L Alkaline Phosphatase (38-126) U/L Total Protein (6.3-8.2) g/dL Albumin (3.5-5.0) g/dL 01/04/18 01/04/18 01/04/18 Range/Units 07:05 08:20 08:20 WBC 17.0 H (3.8-10.6) k/uL RBC 3.65 L (3.80-5.40) m/uL Hgb 10.3 L (11.4-16.0) gm/dL Hct 32.4 L (34.0-46.0) % Neutrophils # 14.4 H (1.3-7.7) k/uL Chloride 97 L (98-107) mmol/L Carbon Dioxide 31 H (22-30) mmol/L BUN 37 H (7-17) mg/dL Glucose 232 H (74-99) mg/dL POC Glucose (mg/dL) 204 H (75-99) mg/dL Calcium 8.3 L (8.4-10.2) mg/dL AST 43 H (14-36) U/L Alkaline Phosphatase 135 H (38-126) U/L Total Protein 5.8 L (6.3-8.2) g/dL Albumin 2.9 L (3.5-5.0) g/dL Assessment and Plan Assessment: Impression: 1. Acute right upper quadrant abdominal pain status post EGD with findings of diffuse gastritis no evidence of peptic ulcer disease. 2. Leukocytosis. Recommendations: 1. Continue supportive measures. Diet as tolerated. General surgery following. Continue Protonix 40 mg daily. We'll follow as needed. Assessment and plan a care discussed with Dr. Collins
--- NOTE | 2018-01-04 11:31 | P.PN ---
Subjective Progress Note Date: 01/04/18 Principal diagnosis: Abdominal pain, leukocytosis The patient seen on rounds. She is tolerating a diet without nausea or vomiting. Denies any abdominal pain. She had a low-grade temperature yesterday. EGD shows gastritis. Objective - Vital Signs Vital signs: Vital Signs Temp 99.1 F 01/04/18 06:29 Pulse 110 H 01/04/18 11:16 Resp 16 01/04/18 06:29 BP 138/58 01/04/18 06:29 Pulse Ox 93 L 01/04/18 07:33 Intake & Output 01/03/18 01/04/18 01/04/18 18:59 06:59 18:59 Intake Total 200 Balance 200 Weight 96 kg 101.5 kg Intake: IV 100 Intake, IV Titration 100 Amount Ampicillin-Sulbactam 3 gm 100 In Sodium Chloride 0.9% 100 ml @ 100 mls/hr IVPB Q6HR [facility] Rx#:[id number] Other: Voiding Method Bedside Commode Bedside Commode # Voids 2 3 - Constitutional General appearance: Present: cooperative, no acute distress - Gastrointestinal General gastrointestinal: Present: normal bowel sounds, soft. Absent: distended , tenderness - Labs CBC & Chem 7: 01/04/18 08:20 01/04/18 08:20 Labs: Abnormal Lab Results - Last 24 Hours (Table) 01/03/18 01/03/18 01/03/18 Range/Units 12:19 17:38 20:42 WBC (3.8-10.6) k/uL RBC (3.80-5.40) m/uL Hgb (11.4-16.0) gm/dL Hct (34.0-46.0) % Neutrophils # (1.3-7.7) k/uL Chloride (98-107) mmol/L Carbon Dioxide (22-30) mmol/L BUN (7-17) mg/dL Glucose (74-99) mg/dL POC Glucose (mg/dL) 177 H 124 H 244 H (75-99) mg/dL Calcium (8.4-10.2) mg/dL AST (14-36) U/L Alkaline Phosphatase (38-126) U/L Total Protein (6.3-8.2) g/dL Albumin (3.5-5.0) g/dL 01/04/18 01/04/18 01/04/18 Range/Units 07:05 08:20 08:20 WBC 17.0 H (3.8-10.6) k/uL RBC 3.65 L (3.80-5.40) m/uL Hgb 10.3 L (11.4-16.0) gm/dL Hct 32.4 L (34.0-46.0) % Neutrophils # 14.4 H (1.3-7.7) k/uL Chloride 97 L (98-107) mmol/L Carbon Dioxide 31 H (22-30) mmol/L BUN 37 H (7-17) mg/dL Glucose 232 H (74-99) mg/dL POC Glucose (mg/dL) 204 H (75-99) mg/dL Calcium 8.3 L (8.4-10.2) mg/dL AST 43 H (14-36) U/L Alkaline Phosphatase 135 H (38-126) U/L Total Protein 5.8 L (6.3-8.2) g/dL Albumin 2.9 L (3.5-5.0) g/dL Assessment and Plan (1) Abdominal pain Current Visit: Yes Status: Acute Code(s): R10.9 - UNSPECIFIED ABDOMINAL PAIN SNOMED Code(s): 22771130 (2) Hydrops of gallbladder Current Visit: Yes Status: Acute Code(s): K82.1 - HYDROPS OF GALLBLADDER SNOMED Code(s): 37604011 (3) Personal history of lung cancer Current Visit: Yes Status: Acute Code(s): Z85.118 - PERSONAL HISTORY OF MALIGNANT NEOPLASM OF BRONCHUS AND LUNG SNOMED Code(s): 020382143 (4) History of atrial fibrillation Current Visit: Yes Status: Acute Code(s): Z86.79 - PERSONAL HISTORY OF OTHER DISEASES OF THE CIRCULATORY SYSTEM SNOMED Code(s): 926428673 Plan: Dr. Cleveland is seen the patient. At the present time there is no evidence of acute cholecystitis. No cholelithiasis. Continue medical workup. Transfer care over to Dr. Sorenson. I'll follow up as needed.
[2018-01-04 12:13] LABS: Glucose,Whole Blood 267 mg/dL (75-99)
--- NOTE | 2018-01-04 15:27 | P.PN ---
Subjective Progress Note Date: 01/04/18 Patient is a 72-year-old female who presented to [facility] emergency room was a chief complaint of abdominal pain patient describes a fullness and bloating and pain in the right upper quadrant there is no nausea or vomiting no diarrhea last bowel movement 3 days ago. Patient was evaluated in emergency room computed tomography scan of the abdomen and pelvis did not reveal any acute abnormality ultrasound of the abdomen showed hydrops of the gallbladder and common bile duct dilatation. Patient was admitted under surgical service medical consultation was requested for management while hospitalized. 01/03/2018 patient scheduled for EGD today. HIDA scan showed no evidence of an acute cholecystitis. The ejection fraction was diminished. Patient reports that her abdominal pain has resolved. She is still having low-grade temps 100.7 and 100.2. Yesterday T-max 101.6. White count has gone down from 22.1- 21.1. Infectious disease is consulted. Patient remains on Unasyn. Patient denies any chest pain or shortness of breath. Denies cough. Denies any nausea or vomiting. Denies bowel movement changes or urinary symptoms. Chest x-ray pending this morning 01/04/2018 patient status post EGD revealing gastritis. Continue with PPI. Patient had a low-grade temp yesterday of 100.2. White count has gone down from 21.1-17. Chest x-ray showing left lung base thought to be chronic, correlate to exclude pneumonia. Objective - Vital Signs Vital signs: Vital Signs Temp 100.4 F H 01/04/18 14:51 Pulse 94 01/04/18 14:51 Resp 16 01/04/18 14:51 BP 146/64 01/04/18 14:51 Pulse Ox 95 01/04/18 14:51 Intake & Output 01/03/18 01/04/18 01/04/18 18:59 06:59 18:59 Intake Total 200 Balance 200 Weight 96 kg 101.5 kg Intake: IV 100 Intake, IV Titration 100 Amount Ampicillin-Sulbactam 3 gm 100 In Sodium Chloride 0.9% 100 ml @ 100 mls/hr IVPB Q6HR [facility] Rx#:[id number] Other: Voiding Method Bedside Commode Bedside Commode # Voids 2 3 3 - Exam Head normocephalic Neck supple Lungs diminished bilaterally Heart regular rate and rhythm S1-S2, no rub or gallop Abdomen is soft nontender nondistended positive bowel sounds no hepatosplenomegaly Extremities no edema Neuro alert and orientated to 3 - Labs CBC & Chem 7: 01/04/18 08:20 01/04/18 08:20 Labs: Abnormal Lab Results - Last 24 Hours (Table) 01/03/18 01/03/18 01/04/18 Range/Units 17:38 20:42 07:05 WBC (3.8-10.6) k/uL RBC (3.80-5.40) m/uL Hgb (11.4-16.0) gm/dL Hct (34.0-46.0) % Neutrophils # (1.3-7.7) k/uL Chloride (98-107) mmol/L Carbon Dioxide (22-30) mmol/L BUN (7-17) mg/dL Glucose (74-99) mg/dL POC Glucose (mg/dL) 124 H 244 H 204 H (75-99) mg/dL Calcium (8.4-10.2) mg/dL AST (14-36) U/L Alkaline Phosphatase (38-126) U/L Total Protein (6.3-8.2) g/dL Albumin (3.5-5.0) g/dL 01/04/18 01/04/18 01/04/18 Range/Units 08:20 08:20 12:09 WBC 17.0 H (3.8-10.6) k/uL RBC 3.65 L (3.80-5.40) m/uL Hgb 10.3 L (11.4-16.0) gm/dL Hct 32.4 L (34.0-46.0) % Neutrophils # 14.4 H (1.3-7.7) k/uL Chloride 97 L (98-107) mmol/L Carbon Dioxide 31 H (22-30) mmol/L BUN 37 H (7-17) mg/dL Glucose 232 H (74-99) mg/dL POC Glucose (mg/dL) 267 H (75-99) mg/dL Calcium 8.3 L (8.4-10.2) mg/dL AST 43 H (14-36) U/L Alkaline Phosphatase 135 H (38-126) U/L Total Protein 5.8 L (6.3-8.2) g/dL Albumin 2.9 L (3.5-5.0) g/dL Microbiology - Last 24 Hours (Table) 01/03/18 09:13 Blood Culture - Preliminary Blood No Growth after 24 hours Assessment and Plan Assessment: #1 right upper quadrant and epigastric abdominal pain: Likely secondary to patient's gastritis. Patient underwent EGD yesterday revealing diffuse gastritis involving the body and antrum of stomach with multiple biopsies. No evidence of peptic ulcer disease. Kidney Protonix. Patient seen by surgical service. No surgical intervention warranted. HIDA scan had shown a decreased ejection fraction of the gallbladder but no evidence of acute cholecystitis. #2 chronic atrial fibrillation . Eliquis as been restarted #3 history of chronic diastolic congestive heart failure without evidence of exacerbation at this time #4 underlying history of COPD stable at this time #5 previous history of lung cancer #[address] fevers[address] Cleveland is following. Patient currently on Unasyn. [place] that the prednisone from home is likely not contributing to her white count. Patient had had low-grade temps. Her white count is trending down. Chest x-ray showing questionable chronic findings in the left lung base versus pneumonia. Blood cultures remain negative. #7 there is a 2 cm subpleural mass in the right lower lobe. Concerns that this may be the infectious source. Await further recommendations per Dr. Cleveland Consult physical therapy I performed an examination of the patient and discussed their management with the physician Syrup Machine Laborer. I have reviewed the Physician Syrup Machine Laborer's notes and agree with the documented findings and plan of care
[2018-01-04 17:32] LABS: Glucose,Whole Blood 273 mg/dL (75-99)
[2018-01-04 20:44] LABS: Glucose,Whole Blood 225 mg/dL (75-99)
[2018-01-05] MEDS: AMPICILLIN-SULBACTAM 3 GM in SODIUM CHLORIDE 0.9% 100 ML IVPB SCH ×3 (00:16→12:25)
--- NOTE | 2018-01-05 00:22 | P.PN ---
Subjective Progress Note Date: 01/04/18 72-year-old female presents to the emergency center feeling very poorly for relatively short period of time the patient relates that she had a somewhat sudden onset of fullness and discomfort in her abdomen. It progressed. It was mostly in the right upper quadrant. She is having some difficulty even with discomfort with breathing. And was not able to eat because she was having so much fullness and pain. She has a presented to the emergency center and underwent imaging studies that included computed tomography scan. She has a history of a cholecystectomy. No significant abnormality is were seen. Her abdominal pain persisted and she was noticed to have some mild anemia. As when she was seen by gastroenterology and an EGD was performed today which revealed evidence of some diffuse gastritis but no ulceration or perforation. The patient is feeling somewhat better since her testing in that the significant rebound discomfort has improved. However she still does feel somewhat poorly overall. She's had significant fever up to 101.6 and had leukocytosis also. No evidence of any infection has been found to date. Infectious disease consultation was requested. 01/04/2018 patient is feeling better. Severe pain is improved. Fever is improved from 101-100.4. Objective - Vital Signs Vital signs: Vital Signs Temp 99.6 F 01/04/18 21:24 Pulse 96 01/04/18 21:24 Resp 28 H 01/04/18 21:24 BP 139/67 01/04/18 21:24 Pulse Ox 93 L 01/04/18 21:29 Intake & Output 01/04/18 01/04/18 01/05/18 06:59 18:59 06:59 Weight 101.5 kg Other: Voiding Method Bedside Commode # Voids 3 3 - Exam Pleasant 72-year-old woman who is comfortable at this point in time. T-max in the last day is 101.6, most recent temperature is 99.7 HEENT: Anicteric conjunctiva are pink and moist nasal mucosa grossly intact without significant lesions, there is no thrush. Neck: The neck is supple without significant lymphadenopathy or thyromegaly. Lungs: Good bilateral air entry without significant crackles or wheezing. There is no significant bronchial sounds. There is no egophony or dullness. Diminished breath sounds at left base which cooperates her site of prior surgery. Heart: Regular rate and rhythm with an audible S1-S2, no S3 no S4. There is no significant murmur click or rub, PMI was nondisplaced. Abdomen: Positive bowel sounds soft and nontender without palpable masses or organomegaly. There was no guarding or rebound. Extremities: The upper extremities have excellent pulses they are symmetric, no significant petechiae or telangiectasia. No splinter hemorrhages were noted. The lower extremities are free from significant edema. The peripheral pulses were 2+ and symmetric. Neuro: Awake alert oriented to person place and time. There are no acute new gross focal sensory motor deficits. - Labs CBC & Chem 7: 01/04/18 08:20 01/04/18 08:20 Labs: Abnormal Lab Results - Last 24 Hours (Table) 01/04/18 01/04/18 01/04/18 Range/Units 07:05 08:20 08:20 WBC 17.0 H (3.8-10.6) k/uL RBC 3.65 L (3.80-5.40) m/uL Hgb 10.3 L (11.4-16.0) gm/dL Hct 32.4 L (34.0-46.0) % Neutrophils # 14.4 H (1.3-7.7) k/uL Chloride 97 L (98-107) mmol/L Carbon Dioxide 31 H (22-30) mmol/L BUN 37 H (7-17) mg/dL Glucose 232 H (74-99) mg/dL POC Glucose (mg/dL) 204 H (75-99) mg/dL Calcium 8.3 L (8.4-10.2) mg/dL AST 43 H (14-36) U/L Alkaline Phosphatase 135 H (38-126) U/L Total Protein 5.8 L (6.3-8.2) g/dL Albumin 2.9 L (3.5-5.0) g/dL 01/04/18 01/04/18 01/04/18 Range/Units 12:09 17:09 20:36 WBC (3.8-10.6) k/uL RBC (3.80-5.40) m/uL Hgb (11.4-16.0) gm/dL Hct (34.0-46.0) % Neutrophils # (1.3-7.7) k/uL Chloride (98-107) mmol/L Carbon Dioxide (22-30) mmol/L BUN (7-17) mg/dL Glucose (74-99) mg/dL POC Glucose (mg/dL) 267 H 273 H 225 H (75-99) mg/dL Calcium (8.4-10.2) mg/dL AST (14-36) U/L Alkaline Phosphatase (38-126) U/L Total Protein (6.3-8.2) g/dL Albumin (3.5-5.0) g/dL Microbiology - Last 24 Hours (Table) 01/03/18 09:13 Blood Culture - Preliminary Blood No Growth after 24 hours Laboratory Results WBC 17.0 k/uL (3.8-10.6) H 01/04/18 08:20 RBC 3.65 m/uL (3.80-5.40) L 01/04/18 08:20 Hgb 10.3 gm/dL (11.4-16.0) L 01/04/18 08:20 Hct 32.4 % (34.0-46.0) L 01/04/18 08:20 MCV 88.9 fL (80.0-100.0) 01/04/18 08:20 MCH 28.3 pg (25.0-35.0) 01/04/18 08:20 MCHC 31.9 g/dL (31.0-37.0) 01/04/18 08:20 RDW 14.0 % (11.5-15.5) 01/04/18 08:20 Plt Count 212 k/uL (150-450) 01/04/18 08:20 Neutrophils % 85 % 01/04/18 08:20 Lymphocytes % 9 % 01/04/18 08:20 Monocytes % 5 % 01/04/18 08:20 Eosinophils % 1 % 01/04/18 08:20 Basophils % 0 % 01/04/18 08:20 Neutrophils # 14.4 k/uL (1.3-7.7) H 01/04/18 08:20 Lymphocytes # 1.5 k/uL (1.0-4.8) 01/04/18 08:20 Monocytes # 0.8 k/uL (0-1.0) 01/04/18 08:20 Eosinophils # 0.1 k/uL (0-0.7) 01/04/18 08:20 Basophils # 0.0 k/uL (0-0.2) 01/04/18 08:20 Hypochromasia Slight 01/04/18 08:20 Sodium 139 mmol/L (137-145) 01/04/18 08:20 Potassium 4.0 mmol/L (3.5-5.1) 01/04/18 08:20 Chloride 97 mmol/L (98-107) L 01/04/18 08:20 Carbon Dioxide 31 mmol/L (22-30) H 01/04/18 08:20 Anion Gap 11 mmol/L 01/04/18 08:20 BUN 37 mg/dL (7-17) H 01/04/18 08:20 Creatinine 0.91 mg/dL (0.52-1.04) 01/04/18 08:20 Est GFR (CKD-EPI)AfAm 72 (>60 ml/min/1.73 sqM) 01/04/18 08:20 Est GFR (CKD-EPI)NonAf 63 (>60 ml/min/1.73 sqM) 01/04/18 08:20 Glucose 232 mg/dL (74-99) H 01/04/18 08:20 POC Glucose (mg/dL) 225 mg/dL (75-99) H 01/04/18 20:36 POC Glu Director Systems Henrietta Feliz 01/04/18 20:[address] Glu mg/dL 183 12/31/17 19:58 Hemoglobin A1c 8.0 % (4.0-6.0) H 12/31/17 19:58 Plasma Lactic Acid [place] 0.7 mmol/L (0.7-2.0) 01/02/18 08:43 Calcium 8.3 mg/dL (8.4-10.2) L 01/04/18 08:20 Phosphorus 5.0 mg/dL (2.5-4.5) H 12/31/17 19:58 Magnesium 2.2 mg/dL (1.6-2.3) 12/31/17 19:58 Total Bilirubin 0.4 mg/dL (0.2-1.3) 01/04/18 08:20 AST 43 U/L (14-36) H 01/04/18 08:20 ALT 38 U/L (9-52) 01/04/18 08:20 Alkaline Phosphatase 135 U/L (38-126) H 01/04/18 08:20 Total Protein 5.8 g/dL (6.3-8.2) L 01/04/18 08:20 Albumin 2.9 g/dL (3.5-5.0) L 01/04/18 08:20 Amylase 81 U/L (30-110) 12/31/17 19:58 Lipase 59 U/L (23-300) 12/31/17 19:58 Urine Color Light Yellow 12/31/17 21:50 Urine Appearance Clear (Clear) 12/31/17 21:50 Urine pH 8.0 (5.0-8.0) 12/31/17 21:50 Ur Specific [place] 1.035 (1.001-1.035) 12/31/17 21:50 Urine Protein 2+ (Negative) H 12/31/17 21:50 Urine Glucose (UA) Negative (Negative) 12/31/17 21:50 Urine Ketones Negative (Negative) 12/31/17 21:50 Urine Blood Negative (Negative) 12/31/17 21:50 Urine Nitrite Negative (Negative) 12/31/17 21:50 Urine Bilirubin Negative (Negative) 12/31/17 21:50 Urine Urobilinogen <2.0 mg/dL (<2.0) 12/31/17 21:50 Ur Leukocyte Esterase Small (Negative) H 12/31/17 21:50 Urine RBC 3 /hpf (0-5) 12/31/17 21:50 Urine WBC 16 /hpf (0-5) H 12/31/17 21:50 Ur Squamous Epith Cells 8 /hpf (0-4) H 12/31/17 21:50 Microbiology 01/03/18 09:13 Blood Blood Culture - Preliminary No Growth after 24 hours 12/31/17 21:50 Urine,Clean Catch Urine Culture - Final Assessment and Plan (1) Fever Narrative/Plan: 72-year-old female presents to Hospital feeling poorly with significant right upper quadrant abdominal pain. Computed tomography scan was performed without evidence of significant pathology except a new 2 cm right lower lobe sub-pleural mass. Her pain was significant and consequently was seen by gastroenterology and EGD has been performed that showed evidence of diffuse gastritis but without ulceration. No distinct etiology of her pain was noted. However with her fever and leukocytosis appears to have an underlying infection there is a concern that the abnormality is seen in the subpleural space could be an underlying infection. The patient has been on prednisone 5 mg a day which could be part of the current gastritis and some of her symptomatology. However this low-dose of prednisone is not likely the cause her significant leukocytosis. Cultures are in process. Lactic acid was normal. Urinalysis and culture are negative. She' s responding to current antibiotic therapy of Unasyn and this will continue. May require further evaluation of the 2 cm subpleural mass. 01/04/2018 patient is stable and comfortable. Fevers improved. Leukocytosis is improved. Her gastritis is improved. Cultures are negative and being monitored. Unasyn is being utilized with some improvement if she has further improvement may transition to Augmentin to complete a week of therapy. Current Visit: Yes Status: Acute Code(s): R50.9 - FEVER, UNSPECIFIED SNOMED Code(s): 397288860 (2) Leukocytosis (leucocytosis) Current Visit: Yes Status: Acute Code(s): D72.829 - ELEVATED WHITE BLOOD CELL COUNT, UNSPECIFIED SNOMED Code(s): 039950943 (3) History of lung cancer Current Visit: Yes Status: Acute Code(s): Z85.118 - PERSONAL HISTORY OF MALIGNANT NEOPLASM OF BRONCHUS AND LUNG SNOMED Code(s): 195391914
[2018-01-05 07:42] LABS: Glucose,Whole Blood 222 mg/dL (75-99)
[2018-01-05 08:39] VITALS: BP 141/67; RESP 18; TEMP 97.7
[2018-01-05] MEDS: SYMBICORT 80-4.5 MCG INHALER INHALATION SCH (08:47)
[2018-01-05] MEDS: ALBUTEROL NEBULIZED 2.5 MG/3 ML INHALATION SCH ×2 (08:47→12:17)
[2018-01-05 09:10] LABS: Basophils % (A) 0 %; Eosinophils # (A) 0.1 k/uL (0-0.7); Eosinophils % (A) 1 %; HCT 30.6 % (34.0-46.0); HGB 9.9 gm/dL (11.4-16.0); Hypochromasia Slight; Lymphocytes # (A) 1.2 k/uL (1.0-4.8); Lymphocytes % (A) 8 %; MCHC 32.5 g/dL (31.0-37.0); MCV 89.2 fL (80.0-100.0); Mean Platelet Volume 7.7; Monocytes # (A) 0.7 k/uL (0-1.0); Monocytes % (A) 5 %; Neutrophils # (A) 12.4 k/uL (1.3-7.7); Neutrophils % (A) 85 %; Platelet Count 199 k/uL (150-450); RBC 3.43 m/uL (3.80-5.40); RDW 13.7 % (11.5-15.5); WBC 14.6 k/uL (3.8-10.6)
[2018-01-05] MEDS: PANTOPRAZOLE 40 MG/10 ML VIAL IVP SCH (09:24)
[2018-01-05] MEDS: GABAPENTIN 400 MG CAP PO SCH (09:24)
[2018-01-05] MEDS: APIXABAN 5 MG TAB PO SCH (09:24)
[2018-01-05] MEDS: SUCRALFATE 1 GM TAB PO SCH ×2 (09:24→11:55)
[2018-01-05] MEDS: FUROSEMIDE 40 MG TAB PO SCH (09:24)
[2018-01-05] MEDS: SPIRONOLACTONE 25 MG TAB PO SCH (09:24)
[2018-01-05] MEDS: LOSARTAN 50 MG TAB PO SCH (09:25)
[2018-01-05] MEDS: predniSONE 5 MG TAB PO SCH (09:25)
[2018-01-05] MEDS: METOPROLOL SUCCINATE (ER) 50 MG TAB.ER.24H PO SCH (09:25)
[2018-01-05] MEDS: INSULIN ASPART 100 UNIT/ML 1 ML 10 ML VIAL SQ SCH ×2 (09:25→11:55)
[2018-01-05 09:40] LABS: Albumin 2.8 g/dL (3.5-5.0); Calcium 8.3 mg/dL (8.4-10.2); Potassium 3.7 mmol/L (3.5-5.1); Total Bilirubin 0.3 mg/dL (0.2-1.3); Total Protein 5.5 g/dL (6.3-8.2)
[2018-01-05] MEDS ORDERED: RX INFO: IV CONTRAST WAS GIVEN 1 EACH MISC MISCELLANE PRN (10:52)
[2018-01-05 11:51] LABS: Glucose,Whole Blood 359 mg/dL (75-99)
--- NOTE | 2018-01-05 12:10 | CT ---
EXAMINATION TYPE: CT chest w con DATE OF EXAM: 01/05/2018 COMPARISON: NONE HISTORY: RLL mass CT DLP: 605 mGycm Automated exposure control for dose reduction was used. CONTRAST: CT scan of the chest is performed with IV Contrast, patient injected with 100 ml mL of Isovue 300. FINDINGS: LUNGS: Changes of left lower lobe lobectomy. Left lower lobe pleural-based calcification. Pleural-bas ed lobulated dominant mass right lower lobe measuring 2 cm x 1 cm. No additional masses or nodules id entified. Left-sided volume loss postoperative in nature. MEDIASTINUM: Right paratracheal adenopathy measuring 1.3 cm. AP window adenopathy measuring 1.2 cm. N o pericardial effusion is seen. Thoracic aorta is of normal caliber. The heart is enlarged. UPPER ABDOMEN: No significant abnormality appreciated. OTHER: No additional significant abnormality is seen. IMPRESSION: 1. Suspicious pleural-based mass right lower lobe suspicious for malignancy. Consider PET/CT or tissu e diagnosis as clinically warranted. 2. Postoperative changes of partial 3. Mediastinal adenopathy. Left lower lobe lobectomy
--- NOTE | 2018-01-05 12:28 | P.DS ---
Providers Date of admission: 12/31/17 23:57 Expected date of discharge: 01/05/18 Attending physician: Ramonita Sorenson Consults: 12/31/17 23:57 Consult Physician Routine Consulting Provider: Ramonita Sorenson Consult Reason/Comments: pepper Do you want consulting provider notified?: Yes 01/01/18 17:51 Consult Physician Routine Consulting Provider: Toni Collins Consult Reason/Comments: a fib, CHF, surgical clearence Do you want consulting provider notified?: Yes 01/02/18 11:29 Consult Physician Routine Consulting Provider: Amado Cleveland Consult Reason/Comments: leukocytosis Do you want consulting provider notified?: Yes 01/04/18 16:18 Consult Physician Routine Consulting Provider: Polly Alford Consult Reason/Comments: RLL subpleural mass Do you want consulting provider notified?: Yes Primary care physician: Mariaa Chery [facility] Course: Diagnoses on discharge: #1 right upper quadrant and epigastric abdominal pain: Likely secondary to patient's gastritis. Patient underwent EGD yesterday revealing diffuse gastritis involving the body and antrum of stomach with multiple biopsies. No evidence of peptic ulcer disease. Kidney Protonix. Patient seen by surgical service. No surgical intervention warranted. HIDA scan had shown a decreased ejection fraction of the gallbladder but no evidence of acute cholecystitis. #2 chronic atrial fibrillation . Eliquis as been restarted #3 history of chronic diastolic congestive heart failure without evidence of exacerbation at this time #4 underlying history of COPD stable at this time #5 previous history of lung cancer #[address] fe[address] Cleveland is following. Patient currently on Unasyn. [place] that the prednisone from home is likely not contributing to her white count. Patient had had low-grade temps. Her white count is trending down. Chest x-ray showing questionable chronic findings in the left lung base versus pneumonia. Blood cultures remain negative. #7 there is a 2 cm subpleural mass in the right lower lobe. Concerns that this may be the infectious source. recommendations per Dr. Cleveland is to discharge patient on Augmentin 500 mg twice daily for 7 more days. Further workup as outpatient in regard to 2 cm subpleural mass in the right lower lobe to assure resolution. Hospital course: Patient is a 72-year-old female who presented to [facility] emergency room was a chief complaint of abdominal pain patient describes a fullness and bloating and pain in the right upper quadrant there is no nausea or vomiting no diarrhea last bowel movement 3 days ago. Patient was evaluated in emergency room computed tomography scan of the abdomen and pelvis did not reveal any acute abnormality ultrasound of the abdomen showed hydrops of the gallbladder and common bile duct dilatation. Patient was admitted under surgical service medical consultation was requested for management while hospitalized. 01/03/2018 patient scheduled for EGD today. HIDA scan showed no evidence of an acute cholecystitis. The ejection fraction was diminished. Patient reports that her abdominal pain has resolved. She is still having low-grade temps 100.7 and 100.2. Yesterday T-max 101.6. White count has gone down from 22.1- 21.1. Infectious disease is consulted. Patient remains on Unasyn. Patient denies any chest pain or shortness of breath. Denies cough. Denies any nausea or vomiting. Denies bowel movement changes or urinary symptoms. Chest x-ray pending this morning 01/04/2018 patient status post EGD revealing gastritis. Continue with PPI. Patient had a low-grade temp yesterday of 100.2. White count has gone down from 21.1-17. Chest x-ray showing left lung base thought to be chronic, correlate to exclude pneumonia. Patient Condition at Discharge: Serious Plan - Discharge Summary Discharge Rx Participant: No New Discharge Prescriptions: New Amoxicillin/Potassium Clav [Augmentin 500-125 Tablet] 1 tab PO Q12HR 7 Days # 14 tab Pantoprazole Sodium [Protonix] 40 mg PO BID #60 tablet. Continue Insulin Aspart [NovoLOG Flexpen] 20 units SQ AC-TID Insulin Degludec [Tresiba Flextouch U-200] 98 unit SQ DAILY Fluticasone/Salmeterol [Advair 250-50 Diskus] 1 puff INHALATION RT-BID Cyanocobalamin [Vitamin B-12] 500 mcg PO DAILY Cholecalciferol [Vitamin D3] 4,000 unit PO DAILY Atorvastatin [Lipitor] 40 mg PO HS Glimepiride [Amaryl] 4 mg PO AC-BID Gabapentin 800 mg PO TID metFORMIN HCL [Glucophage] 500 mg PO BID Loratadine [Claritin] 10 mg PO DAILY Albuterol Nebulized [Ventolin Nebulized] 2.5 mg INHALATION RT-QID Albuterol Inhaler [Ventolin Hfa Inhaler] 2 puff INHALATION RT-BID Apixaban [Eliquis] 5 mg PO BID #60 tab Losartan [Cozaar] 100 mg PO DAILY #30 tab Metoprolol Succinate (ER) [Toprol XL] 50 mg PO DAILY #60 tab.er.24h Spironolactone [Aldactone] 25 mg PO DAILY #30 tab Furosemide [Lasix] 40 mg PO BID predniSONE 5 mg PO DAILY Sucralfate [Carafate] 1 gm PO ACHS Discontinued Omeprazole 20 mg PO BID Meloxicam [Mobic] 7.5 mg PO HS Nizatidine [Axid] 150 mg PO DAILY Discharge Medication List Atorvastatin [Lipitor] 40 mg PO HS 11/17/16 [History] Cholecalciferol [Vitamin D3] 4,000 unit PO DAILY 11/17/16 [History] Cyanocobalamin [Vitamin B-12] 500 mcg PO DAILY 11/17/16 [History] Fluticasone/Salmeterol [Advair 250-50 Diskus] 1 puff INHALATION RT-BID 11/17/16 [History] Gabapentin 800 mg PO TID 11/17/16 [History] Glimepiride [Amaryl] 4 mg PO AC-BID 11/17/16 [History] Insulin Aspart [NovoLOG Flexpen] 20 units SQ AC-TID 11/17/16 [History] Insulin Degludec [Tresiba Flextouch U-200] 98 unit SQ DAILY 11/17/16 [History] Albuterol Inhaler [Ventolin Hfa Inhaler] 2 puff INHALATION RT-BID 07/22/17 [ History] Albuterol Nebulized [Ventolin Nebulized] 2.5 mg INHALATION RT-QID 07/22/17 [ History] Loratadine [Claritin] 10 mg PO DAILY 07/22/17 [History] metFORMIN HCL [Glucophage] 500 mg PO BID 07/22/17 [History] Apixaban [Eliquis] 5 mg PO BID #60 tab 08/02/17 [Rx] Losartan [Cozaar] 100 mg PO DAILY #30 tab 08/02/17 [Rx] Metoprolol Succinate (ER) [Toprol XL] 50 mg PO DAILY #60 tab.er.24h 08/02/17 [Rx ] Spironolactone [Aldactone] 25 mg PO DAILY #30 tab 08/02/17 [Rx] Furosemide [Lasix] 40 mg PO BID 12/31/17 [History] Sucralfate [Carafate] 1 gm PO ACHS 12/31/17 [History] predniSONE 5 mg PO DAILY 12/31/17 [History] Amoxicillin/Potassium Clav [Augmentin 500-125 Tablet] 1 tab PO Q12HR 7 Days #14 tab 01/05/18 [Rx] Pantoprazole Sodium [Protonix] 40 mg PO BID #60 tablet. 01/05/18 [Rx] Follow up Appointment(s)/Referral(s): [facility], [NON-STAFF] - Mariaa Chery DO [Primary Care Provider] - 1-2 days Patient Instructions/Handouts: Heart Failure (DC), Cholecystitis (GEN), Type 2 Diabetes in Adults (DC)
[2018-01-05 12:29] VITALS: PULSE 96
--- NOTE | 2018-01-05 18:02 | P.CNPUL ---
History of Present Illness Consult date: 01/05/18 Reason for consult: lung mass History of present illness: This is a very pleasant 72-year-old female patient with known history of non- small cell lung cancer and the patient underwent a left lower lobe resection back in year 1999 and she has been disease-free. She is also known to have COPD severe with chronic hypoxic history failure, diabetes mellitus, chronic atrial fibrillation, coronary artery disease, hypertension. The patient came in to the hospital because of a right upper quadrant pain and epigastric pain and discomfort. This was further investigated and part of her investigation included a CAT scan of the abdomen that showed a new pleural-based lesion in the right lower lobe. The findings in the left lower lobe were essentially chronic and postsurgical in nature. Going back to the records, this nodule was recognized by Dr. Arguello on a chest x-ray and I believe a full CAT scan of the chest will be needed to characterize this abnormality. Clinically the patient is doing well. Abdominal pain is subsided. HIDA scan showed a decreased ejection fraction of the gallbladder without evidence of any acute cholecystitis. The patient had an EGD and colonoscopy that showed diffuse gastritis involving the body of stomach and the antrum and multiple biopsies were obtained. She was also chronic atrial fibrillation and she is on anticoagulation. She has CHF with diastolic dysfunction and underlying COPD. She was seen by Dr. Cleveland knowing that she had leukocytosis and an underlying infection was suspected. The patient was given antibiotics and no cultures were positive and the patient improved and the white cell count also dropped and normalized. The patient is a process of going home today. As far as the right lung nodule, a full CAT scan of the chest was done today with contrast and it showed COPD and postsurgical changes in the left lung. The CAT scan over was significantly abnormal. The patient was found to have a 2 x 1 cm right lower lobe lesion pleural-based suspicious for malignancy. There is also some scattered few subcentimeter pulmonary nodules and mediastinal lymphadenopathy with a 1.3 cm right paratracheal lymph node and another 1.2 cm lymph node in the AP window. There is background emphysema. There is also pleural calcification of the left lung base which is postsurgical in nature. I think these findings are suspicious for malignancy needs to be further investigated. Note that the patient has advanced COPD and she is oxygen dependent at 2 L/m nasal cannula for chronic hypoxic respiratory failure. Her baseline FEV1 is 36% of predicted consistent with severe COPD. Review of Systems Constitutional: Denies weight loss, denies fatigue, no night sweats, no fever, no chills. Cardiovascular: Denies palpitations, denied chest pain or chest pressure, denies any edema. GI: Denies nausea vomiting abdominal pain diarrhea or constipation. The right upper quadrant and abdominal discomfort has completely subsided. The patient is tolerating diet. Please refer to the results of the EGD and colonoscopy. HIDA scan was also noted. Genitourinary: Denies dysuria, frequency, or urgency. Neurologic: Denies weakness, confusion, dizziness, or numbness. Musculoskeletal: Denies weakness arthralgia or myalgia Skin: Denies any skin lesions or rashes. Endocrine: No polydipsia, no polyuria, no heat or cold sensitivity. Pulmonary: No cough no wheezing but she has shortness of breath with any activity. Patient has chronic exertional dyspnea which has essentially unchanged for now Hematologic: No clotting or bleeding or bruising Psychiatric: No symptoms of depression Past Medical History Past Medical History: Atrial Fibrillation, Heart Failure, COPD, Diabetes Mellitus, Hyperlipidemia, Hypertension, Memory Impairment Additional Past Medical History / Comment(s): COPD severe with an FEV1 of 36%, chronic hypoxic respiratory failure, non-small cell lung cancer with a previous left lower lobe resection, chronic atrial fibrillation, hypertension, coronary artery disease, diabetes mellitus, meningitis back in the 70s History of Any Multi-Drug Resistant Organisms: None Reported Past Surgical History: Heart Catheterization With Stent, Tubal Ligation Additional Past Surgical History / Comment(s): Left lower lobe lung removed, right shoulder rotator cuff. Past Anesthesia/Blood Transfusion Reactions: No Reported Reaction Additional Past Anesthesia/Blood Transfusion Reaction / Comment(s): Claustrophobia Date of Last Stent Placement:: unk Past Psychological History: No Psychological Hx Reported Additional Psychological History / Comment(s): Pt. lives w/ significant other of 30 years, uses a cane or walker when ambulating. She has 3 adult children from a prior marriage. A dog in the home. 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 No international travel. No experience Smoking Status: Former smoker Past Alcohol Use History: None Reported Past Drug Use History: None Reported - Past Family History Mother History Unknown: Yes Family Medical History: No Reported History Father Family Medical History: Diabetes Mellitus Medications and Allergies Home Medications Medication Instructions Recorded Confirmed Type Atorvastatin [Lipitor] 40 mg PO HS 11/17/16 12/31/17 History Cholecalciferol [Vitamin D3] 4,000 unit PO DAILY 11/17/16 12/31/17 History Cyanocobalamin [Vitamin B-12] 500 mcg PO DAILY 11/17/16 12/31/17 History Fluticasone/Salmeterol [Advair 1 puff INHALATION RT-BID 11/17/16 12/31/17 History 250-50 Diskus] Gabapentin 800 mg PO TID 11/17/16 12/31/17 History Glimepiride [Amaryl] 4 mg PO AC-BID 11/17/16 12/31/17 History Insulin Aspart [NovoLOG Flexpen] 20 units SQ AC-TID 11/17/16 12/31/17 History Insulin Degludec [Tresiba 98 unit SQ DAILY 11/17/16 12/31/17 History Flextouch U-200] Albuterol Inhaler [Ventolin Hfa 2 puff INHALATION RT-BID 07/22/17 12/31/17 History Inhaler] Albuterol Nebulized [Ventolin 2.5 mg INHALATION RT-QID 07/22/17 12/31/17 History Nebulized] Loratadine [Claritin] 10 mg PO DAILY 07/22/17 12/31/17 History metFORMIN HCL [Glucophage] 500 mg PO BID 07/22/17 12/31/17 History Apixaban [Eliquis] 5 mg PO BID #60 tab 08/02/17 12/31/17 Rx Losartan [Cozaar] 100 mg PO DAILY #30 tab 08/02/17 12/31/17 Rx Metoprolol Succinate (ER) [Toprol 50 mg PO DAILY #60 tab.er.24h 08/02/17 Rx XL] Spironolactone [Aldactone] 25 mg PO DAILY #30 tab 08/02/17 12/31/17 Rx Furosemide [Lasix] 40 mg PO BID 12/31/17 12/31/17 History Sucralfate [Carafate] 1 gm PO ACHS 12/31/17 12/31/17 History predniSONE 5 mg PO DAILY 12/31/17 12/31/17 History Amoxicillin/Potassium Clav 1 tab PO Q12HR 7 Days #14 tab 01/05/18 Rx [Augmentin 500-125 Tablet] Pantoprazole Sodium [Protonix] 40 mg PO BID #60 tablet. 01/05/18 Rx Allergies Allergy/AdvReac Type Severity Reaction Status Date / Time codeine Allergy Unknown Verified 12/31/17 20:01 Physical Exam Vitals: Vital Signs Temp Pulse Pulse Resp BP BP Pulse Ox 01/05/18 12:28 96 01/05/18 12:17 92 01/05/18 09:30 18 01/05/18 09:00 92 01/05/18 08:47 92 01/05/18 07:00 97.7 F 105 H 18 141/67 92 L 01/04/18 21:29 93 L 01/04/18 21:24 99.6 F 96 28 H 139/67 93 L 01/04/18 19:34 92 01/04/18 19:19 94 Intake and Output 01/05/18 01/05/18 01/05/18 06:59 14:59 22:59 Intake Total 350 Balance 350 Intake: Oral 350 Other: Voiding Method Bedside Commode # Voids 3 2 Weight 101.5 kg 101.5 kg Physical exam revealed a 72-year-old female in no distress on home O2 at 3 L nasal cannula, noted to be in no distress at rest,. HEENT: Anicteric sclerae, pink and moist conjunctivae. Extraocular movements intact, pupils are reactive to light they are round and equal. External inspection of ears and nose showed normal mucosa. Oral mucosa, soft and hard palate tongue and posterior pharynx are intact. Neck: Supple no neck masses, no JVD, no thyroid enlargement, no adenopathy. Lungs: Symmetrical expansion, Diminished breath sounds at the bases no rhonchi or wheezes CVS: Regular rate and rhythm, normal S1 and S2, no gallops, no murmur, no rubs. Abdomen: Soft, nontender, no megaly, no rebound, no guarding, positive bowel sounds. Extremities: No clubbing, no edema, no cyanosis, 2+ pulses in upper and lower extremities. Musculoskeletal: Muscle strength and tone normal. Neurologic: Alert and oriented 3, normal affect, no focal neurologic deficits. Results - Laboratory Findings CBC and BMP: 01/05/18 08:31 03/28/18 08:31 Abnormal lab findings: Abnormal Labs 12/31/17 12/31/17 12/31/17 19:58 19:58 19:58 WBC 20.2 H RBC Hgb Hct Neutrophils # 16.7 H Monocytes # Chloride 89 L Carbon Dioxide 37 H BUN 48 H Glucose 65 L POC Glucose (mg/dL) Hemoglobin A1c 8.0 H Calcium Phosphorus 5.0 H AST Alkaline Phosphatase Total Protein Albumin Urine Protein Ur Leukocyte Esterase Urine WBC Ur Squamous Epith Cells 12/31/17 12/31/17 01/01/18 20:07 21:50 00:07 WBC RBC Hgb Hct Neutrophils # Monocytes # Chloride Carbon Dioxide BUN Glucose POC Glucose (mg/dL) 72 L 101 H Hemoglobin A1c Calcium Phosphorus AST Alkaline Phosphatase Total Protein Albumin Urine Protein 2+ H Ur Leukocyte Esterase Small H Urine WBC 16 H Ur Squamous Epith Cells 8 H 01/01/18 01/01/18 01/01/18 07:30 10:44 10:44 WBC 25.0 H* RBC Hgb Hct Neutrophils # 22.1 H Monocytes # 1.1 H Chloride 96 L Carbon Dioxide 35 H BUN 38 H Glucose POC Glucose (mg/dL) 111 H Hemoglobin A1c Calcium Phosphorus AST Alkaline Phosphatase Total Protein Albumin 3.4 L Urine Protein Ur Leukocyte Esterase Urine WBC Ur Squamous Epith Cells 01/01/18 01/02/18 01/02/18 20:45 07:22 08:43 WBC 22.1 H RBC Hgb 10.8 L Hct 33.7 L Neutrophils # 18.6 H Monocytes # Chloride Carbon Dioxide BUN Glucose POC Glucose (mg/dL) 220 H 164 H Hemoglobin A1c Calcium Phosphorus AST Alkaline Phosphatase Total Protein Albumin Urine Protein Ur Leukocyte Esterase Urine WBC Ur Squamous Epith Cells 01/02/18 01/02/18 01/02/18 08:43 11:19 17:10 WBC RBC Hgb Hct Neutrophils # Monocytes # Chloride Carbon Dioxide 32 H BUN 42 H Glucose 119 H POC Glucose (mg/dL) 133 H 125 H Hemoglobin A1c Calcium Phosphorus AST 37 H Alkaline Phosphatase Total Protein 6.0 L Albumin 3.1 L Urine Protein Ur Leukocyte Esterase Urine WBC Ur Squamous Epith Cells 01/02/18 01/03/18 01/03/18 20:51 07:18 08:51 WBC 21.1 H RBC 3.66 L Hgb 10.2 L Hct 32.6 L Neutrophils # 18.2 H Monocytes # Chloride Carbon Dioxide BUN Glucose POC Glucose (mg/dL) 261 H 143 H Hemoglobin A1c Calcium Phosphorus AST Alkaline Phosphatase Total Protein Albumin Urine Protein Ur Leukocyte Esterase Urine WBC Ur Squamous Epith Cells 01/03/18 01/03/18 01/03/18 08:51 12:19 17:38 WBC RBC Hgb Hct Neutrophils # Monocytes # Chloride 97 L Carbon Dioxide 34 H BUN 41 H Glucose 148 H POC Glucose (mg/dL) 177 H 124 H Hemoglobin A1c Calcium Phosphorus AST Alkaline Phosphatase Total Protein 5.8 L Albumin 3.0 L Urine Protein Ur Leukocyte Esterase Urine WBC Ur Squamous Epith Cells 01/03/18 01/04/18 01/04/18 20:42 07:05 08:20 WBC 17.0 H RBC 3.65 L Hgb 10.3 L Hct 32.4 L Neutrophils # 14.4 H Monocytes # Chloride Carbon Dioxide BUN Glucose POC Glucose (mg/dL) 244 H 204 H Hemoglobin A1c Calcium Phosphorus AST Alkaline Phosphatase Total Protein Albumin Urine Protein Ur Leukocyte Esterase Urine WBC Ur Squamous Epith Cells 01/04/18 01/04/18 01/04/18 08:20 12:09 17:09 WBC RBC Hgb Hct Neutrophils # Monocytes # Chloride 97 L Carbon Dioxide 31 H BUN 37 H Glucose 232 H POC Glucose (mg/dL) 267 H 273 H Hemoglobin A1c Calcium 8.3 L Phosphorus AST 43 H Alkaline Phosphatase 135 H Total Protein 5.8 L Albumin 2.9 L Urine Protein Ur Leukocyte Esterase Urine WBC Ur Squamous Epith Cells 01/04/18 01/05/18 01/05/18 20:36 07:39 08:31 WBC RBC Hgb Hct Neutrophils # Monocytes # Chloride 97 L Carbon Dioxide 33 H BUN 29 H Glucose 275 H POC Glucose (mg/dL) 225 H 222 H Hemoglobin A1c Calcium 8.3 L Phosphorus AST Alkaline Phosphatase Total Protein 5.5 L Albumin 2.8 L Urine Protein Ur Leukocyte Esterase Urine WBC Ur Squamous Epith Cells 01/05/18 01/05/18 08:31 11:48 WBC 14.6 H RBC 3.43 L Hgb 9.9 L Hct 30.6 L Neutrophils # 12.4 H Monocytes # Chloride Carbon Dioxide BUN Glucose POC Glucose (mg/dL) 359 H Hemoglobin A1c Calcium Phosphorus AST Alkaline Phosphatase Total Protein Albumin Urine Protein Ur Leukocyte Esterase Urine WBC Ur Squamous Epith Cells - Diagnostic Findings CT scan - chest: image reviewed Assessment and Plan Plan: Assessment 1 right lower lobe pulmonary nodule measuring 2 x 1 cm in size in addition to suspicious mediastinal lymphadenopathy. Findings are quite suspicious for lung cancer that needs to be further investigated 2 previous history of left lower lobe resection back in the year 2003 non-small cell lung cancer 3 chronic pleural calcification on the left lower lobe related to lobectomy 4 COPD severe with an FEV1 of 36% of predicted at baseline 5 chronic hypoxic respiratory failure maintained on oxygen 2 L/m nasal cannula 6 abdominal pain investigated and the patient was found to have gastritis involving the body and antrum of the stomach and multiple biopsies were obtained. HIDA scan showed a decreased ejection fraction of the gallbladder without evidence of an acute cholecystitis 7 leukocytosis, recovered 8 CHF with diastolic dysfunction 9 coronary artery disease 10 chronic atrial fibrillation maintained on long-term anticoagulation Plan Reviewed the findings on the CAT scan of the chest. May need further investigation. This may be a representation of a locally advanced lung cancer. A PET scan will be favored to be done outpatient basis. I'll be glad to biopsy the right lung and based on lymph node and the PET scan shows positive activity within the range of malignancy. Will follow her up on outpatient basis through the pulmonary clinic under the direct supervision of Dr. Ledezma
== END 2018-01-05 14:12 | disposition home health service (06) | DRG 392 ==
LOC: EC 19:06 → 4MS4W 23:57
PROVIDERS: ADMIT Internal Medicine; ATTEND Internal Medicine
PROC: 0DB68ZX Excision of Stomach, Via Natural or Artificial Opening Endoscopic, Diagnostic (ICD-10-PCS; principal; 2018-01-03 08:40)
DX: K29.70 Gastritis, unspecified, without bleeding (principal); J96.11 Chronic respiratory failure with hypoxia; I27.20 Pulmonary hypertension, unspecified; K82.1 Hydrops of gallbladder; I48.1 Persistent atrial fibrillation; I50.32 Chronic diastolic (congestive) heart failure; I11.0 Hypertensive heart disease with heart failure; K83.8 Other specified diseases of biliary tract; Z99.81 Dependence on supplemental oxygen; I48.2 Chronic atrial fibrillation; J43.9 Emphysema, unspecified; E11.9 Type 2 diabetes mellitus without complications; F03.90 Unspecified dementia, unspecified severity, without behavioral disturbance, psychotic disturbance, mood disturbance, and anxiety; E78.5 Hyperlipidemia, unspecified; I25.10 Atherosclerotic heart disease of native coronary artery without angina pectoris; K59.00 Constipation, unspecified; D64.9 Anemia, unspecified; D72.829 Elevated white blood cell count, unspecified; F40.240 Claustrophobia; R16.0 Hepatomegaly, not elsewhere classified; R91.1 Solitary pulmonary nodule; R59.0 Localized enlarged lymph nodes; Z79.01 Long term (current) use of anticoagulants; Z79.4 Long term (current) use of insulin; Z79.52 Long term (current) use of systemic steroids; Z79.1 Long term (current) use of non-steroidal anti-inflammatories (NSAID); Z79.51 Long term (current) use of inhaled steroids; Z79.899 Other long term (current) drug therapy; Z95.5 Presence of coronary angioplasty implant and graft; Z85.118 Personal history of other malignant neoplasm of bronchus and lung; Z86.61 Personal history of infections of the central nervous system; Z86.73 Personal history of transient ischemic attack (TIA), and cerebral infarction without residual deficits; Z90.2 Acquired absence of lung [part of]; Z87.891 Personal history of nicotine dependence; Z88.5 Allergy status to narcotic agent
CPT/HCPCS: 36415; 43239; 71046; 71260; 74177; 76705; 78227; 80053; 81001; 82150; 83036; 83605; 83690; 83735; 84100; 85025; 87040; 87086; 88305; 88312; 88342; 93005; 94640; 94760; 96361; 96365; 96375; 96376; 99285

== ENCOUNTER 2018-01-21 12:33 | Inpatient (IN) | payer MEDICARE ==
[2018-01-21] MEDS ORDERED: IPRATROPIUM-ALBUTEROL 3 ML NEB INHALATION STA (12:37)
[2018-01-21] MEDS ORDERED: SODIUM CHLORIDE 0.9% 1,000 ML IV STA (12:37)
[2018-01-21] MEDS ORDERED: DILTIAZEM 5 MG/1 ML (25ML VIAL) IV STA (12:57)
--- NOTE | 2018-01-21 12:57 | ED ---
General Adult HPI - General Chief complaint: Shortness of Breath Stated complaint: SOB Time Seen by Provider: 01/21/18 12:37 Source: patient, EMS, RN notes reviewed, old records reviewed Mode of arrival: EMS Limitations: no limitations - History of Present Illness Initial comments: This is a 72-year-old female to the ER for evaluation. Patient's signed today for evaluation regarding shortness of breath. History of A. fib history of COPD. Patient states symptoms are progressively worsening denies fever. Patient states she woke today. She weak and short of breath. - Related Data Home Medications Medication Instructions Recorded Confirmed Atorvastatin [Lipitor] 40 mg PO HS 11/17/16 01/21/18 Cholecalciferol [Vitamin D3] 4,000 unit PO DAILY 11/17/16 01/21/18 Cyanocobalamin [Vitamin B-12] 500 mcg PO DAILY 11/17/16 01/21/18 Fluticasone/Salmeterol [Advair 1 puff INHALATION RT-BID 11/17/16 01/21/18 250-50 Diskus] Gabapentin 800 mg PO TID 11/17/16 01/21/18 Glimepiride [Amaryl] 4 mg PO AC-BID 11/17/16 01/21/18 Insulin Aspart [NovoLOG Flexpen] 20 units SQ AC-TID 11/17/16 01/21/18 Insulin Degludec [Tresiba 98 unit SQ DAILY 11/17/16 01/21/18 Flextouch U-200] Albuterol Inhaler [Ventolin Hfa 2 puff INHALATION RT-BID 07/22/17 01/21/18 Inhaler] Albuterol Nebulized [Ventolin 2.5 mg INHALATION RT-QID 07/22/17 01/21/18 Nebulized] Loratadine [Claritin] 10 mg PO DAILY 07/22/17 01/21/18 metFORMIN HCL [Glucophage] 500 mg PO BID 07/22/17 01/21/18 Furosemide [Lasix] 40 mg PO BID 12/31/17 01/21/18 Sucralfate [Carafate] 1 gm PO ACHS 12/31/17 01/21/18 Previous Rx's Medication Instructions Recorded Apixaban [Eliquis] 5 mg PO BID #60 tab 08/02/17 Losartan [Cozaar] 100 mg PO DAILY #30 tab 08/02/17 Metoprolol Succinate (ER) [Toprol 50 mg PO DAILY #60 tab.er.24h 08/02/17 XL] Spironolactone [Aldactone] 25 mg PO DAILY #30 tab 08/02/17 Pantoprazole Sodium [Protonix] 40 mg PO BID #60 tablet. 01/05/18 Allergies Allergy/AdvReac Type Severity Reaction Status Date / Time codeine Allergy Unknown Verified 01/21/18 13:13 Review of Systems ROS Statement: Those systems with pertinent positive or pertinent negative responses have been documented in the HPI. ROS Other: All systems not noted in ROS Statement are negative. Past Medical History Past Medical History: Atrial Fibrillation, Heart Failure, COPD, Diabetes Mellitus, Hyperlipidemia, Hypertension, Memory Impairment Additional Past Medical History / Comment(s): COPD severe with an FEV1 of 36%, chronic hypoxic respiratory failure, non-small cell lung cancer with a previous left lower lobe resection, chronic atrial fibrillation, hypertension, coronary artery disease, diabetes mellitus, meningitis back in the 70s History of Any Multi-Drug Resistant Organisms: None Reported Past Surgical History: Heart Catheterization With Stent, Tubal Ligation Additional Past Surgical History / Comment(s): Left lower lobe lung removed, right shoulder rotator cuff. Past Anesthesia/Blood Transfusion Reactions: No Reported Reaction Additional Past Anesthesia/Blood Transfusion Reaction / Comment(s): Claustrophobia Date of Last Stent Placement:: unk Past Psychological History: No Psychological Hx Reported Smoking Status: Former smoker Past Alcohol Use History: None Reported Past Drug Use History: None Reported - Past Family History Mother History Unknown: Yes Family Medical History: No Reported History Father Family Medical History: Diabetes Mellitus General Exam Limitations: no limitations General appearance: alert, in no apparent distress, anxious Head exam: Present: atraumatic, normocephalic, normal inspection Eye exam: Present: normal appearance, PERRL, EOMI. Absent: scleral icterus, conjunctival injection, periorbital swelling ENT exam: Present: normal exam, mucous membranes moist Neck exam: Present: normal inspection. Absent: tenderness, meningismus, lymphadenopathy Respiratory exam: Present: normal lung sounds bilaterally, wheezes. Absent: respiratory distress, rales, rhonchi, stridor Cardiovascular Exam: Present: tachycardia, irregular rhythm, normal heart sounds. Absent: systolic murmur, diastolic murmur, rubs, gallop, clicks GI/Abdominal exam: Present: soft, normal bowel sounds. Absent: distended, tenderness, guarding, rebound, rigid Extremities exam: Present: normal inspection, full ROM, normal capillary refill. Absent: tenderness, pedal edema, joint swelling, calf tenderness Back exam: Present: normal inspection Neurological exam: Present: alert, oriented X3, CN II-XII intact Psychiatric exam: Present: normal affect, normal mood Skin exam: Present: warm, dry, intact, normal color. Absent: rash Course Vital Signs 01/21/18 01/21/18 01/21/18 12:38 12:53 12:55 Temperature 98.7 F Pulse Rate 102 H 122 H Respiratory 20 Rate Blood Pressure 139/67 O2 Sat by Pulse 92 L Oximetry 01/21/18 01/21/18 01/21/18 13:13 13:28 13:46 Temperature Pulse Rate 120 H 125 H 126 H Respiratory 20 18 Rate Blood Pressure 137/86 156/71 O2 Sat by Pulse 93 L 92 L Oximetry 01/21/18 01/21/18 01/21/18 13:53 13:54 15:38 Temperature 99.4 F 98.7 F Pulse Rate 93 111 H Respiratory 18 18 Rate Blood Pressure 162/66 164/74 O2 Sat by Pulse 90 L 92 L Oximetry - Reevaluation(s) Reevaluation #1: 01/21/18 16:05 Patient is getting mild improvement heart rate control with Cardizem, proving of breathing with breathing treatments but continued to be recurrent breathing treatments here in the ER EKG Findings - EKG Comments: EKG Findings:: EKG shows A. fib with RVR rate 118, QRS 90, QTc 470 Medical Decision Making - Medical Decision Making 72 female the ER for evaluation shortness of breath, cognitive A. fib with RVR, COPD. Patient be admitted for cardiology and pulmonology evaluation - Lab Data Result diagrams: 01/21/18 12:48 01/21/18 12:48 Lab Results 01/21/18 01/21/18 01/21/18 Range/Units 12:48 12:48 12:48 WBC 11.9 H (3.8-10.6) k/uL RBC 3.30 L (3.80-5.40) m/uL Hgb 8.8 L (11.4-16.0) gm/dL Hct 28.4 L (34.0-46.0) % MCV 86.1 (80.0-100.0) fL MCH 26.7 (25.0-35.0) pg MCHC 31.1 (31.0-37.0) g/dL RDW 14.4 (11.5-15.5) % Plt Count 305 (150-450) k/uL Neutrophils % 79 % Lymphocytes % 12 % Monocytes % 6 % Eosinophils % 1 % Basophils % 0 % Neutrophils # 9.4 H (1.3-7.7) k/uL Lymphocytes # 1.5 (1.0-4.8) k/uL Monocytes # 0.7 (0-1.0) k/uL Eosinophils # 0.1 (0-0.7) k/uL Basophils # 0.0 (0-0.2) k/uL Hypochromasia Moderate PT (9.0-12.0) sec INR (<1.2) APTT (22.0-30.0) sec Sodium 140 (137-145) mmol/L Potassium 4.5 (3.5-5.1) mmol/L Chloride 92 L (98-107) mmol/L Carbon Dioxide 36 H (22-30) mmol/L Anion Gap 12 mmol/L BUN 33 H (7-17) mg/dL Creatinine 0.96 (0.52-1.04) mg/dL Est GFR (CKD-EPI)AfAm 68 (>60 ml/min/1.73 sqM) Est GFR (CKD-EPI)NonAf 59 (>60 ml/min/1.73 sqM) Glucose 124 H (74-99) mg/dL Calcium 8.8 (8.4-10.2) mg/dL Magnesium 1.7 (1.6-2.3) mg/dL Total Bilirubin 0.2 (0.2-1.3) mg/dL AST 15 (14-36) U/L ALT 19 (9-52) U/L Alkaline Phosphatase 68 (38-126) U/L Total Creatine Kinase 26 L (30-135) U/L CK-MB (CK-2) 1.0 (0.0-2.4) ng/mL CK-MB (CK-2) Rel Index 3.8 Troponin I 0.018 (0.000-0.034) ng/mL NT-Pro-B Natriuret Pep pg/mL Total Protein 6.0 L (6.3-8.2) g/dL Albumin 3.1 L (3.5-5.0) g/dL 01/21/18 01/21/18 Range/Units 12:48 12:48 WBC (3.8-10.6) k/uL RBC (3.80-5.40) m/uL Hgb (11.4-16.0) gm/dL Hct (34.0-46.0) % MCV (80.0-100.0) fL MCH (25.0-35.0) pg MCHC (31.0-37.0) g/dL RDW (11.5-15.5) % Plt Count (150-450) k/uL Neutrophils % % Lymphocytes % % Monocytes % % Eosinophils % % Basophils % % Neutrophils # (1.3-7.7) k/uL Lymphocytes # (1.0-4.8) k/uL Monocytes # (0-1.0) k/uL Eosinophils # (0-0.7) k/uL Basophils # (0-0.2) k/uL Hypochromasia PT 10.5 (9.0-12.0) sec INR 1.1 (<1.2) APTT 22.1 (22.0-30.0) sec Sodium (137-145) mmol/L Potassium (3.5-5.1) mmol/L Chloride (98-107) mmol/L Carbon Dioxide (22-30) mmol/L Anion Gap mmol/L BUN (7-17) mg/dL Creatinine (0.52-1.04) mg/dL Est GFR (CKD-EPI)AfAm (>60 ml/min/1.73 sqM) Est GFR (CKD-EPI)NonAf (>60 ml/min/1.73 sqM) Glucose (74-99) mg/dL Calcium (8.4-10.2) mg/dL Magnesium (1.6-2.3) mg/dL Total Bilirubin (0.2-1.3) mg/dL AST (14-36) U/L ALT (9-52) U/L Alkaline Phosphatase (38-126) U/L Total Creatine Kinase (30-135) U/L CK-MB (CK-2) (0.0-2.4) ng/mL CK-MB (CK-2) Rel Index Troponin I (0.000-0.034) ng/mL NT-Pro-B Natriuret Pep 2400 pg/mL Total Protein (6.3-8.2) g/dL Albumin (3.5-5.0) g/dL - Radiology Data Radiology results: report reviewed (Chest x-rays negative for acute disease), image reviewed Critical Care Time Critical Care Time: Yes Total Critical Care Time: 31 Disposition Clinical Impression: COPD exacerbation, Atrial fibrillation with RVR, CHF (congestive heart failure) Disposition: ADMITTED IP TO THIS HOSP Condition: Fair
[2018-01-21 13:01] LABS: Basophils % (A) 0 %; Eosinophils # (A) 0.1 k/uL (0-0.7); Eosinophils % (A) 1 %; HCT 28.4 % (34.0-46.0); HGB 8.8 gm/dL (11.4-16.0); Hypochromasia Moderate; Lymphocytes # (A) 1.5 k/uL (1.0-4.8); Lymphocytes % (A) 12 %; MCH 26.7 pg (25.0-35.0); MCHC 31.1 g/dL (31.0-37.0); MCV 86.1 fL (80.0-100.0); Mean Platelet Volume 7.9; Monocytes # (A) 0.7 k/uL (0-1.0); Monocytes % (A) 6 %; Neutrophils # (A) 9.4 k/uL (1.3-7.7); Neutrophils % (A) 79 %; Platelet Count 305 k/uL (150-450); RDW 14.4 % (11.5-15.5); WBC 11.9 k/uL (3.8-10.6)
[2018-01-21 13:09] LABS: INR 1.1 (<1.2); Partial Thromboplastin Time 22.1 sec (22.0-30.0); Prothrombin Time 10.5 sec (9.0-12.0)
[2018-01-21 13:17] LABS: Albumin 3.1 g/dL (3.5-5.0); Calcium 8.8 mg/dL (8.4-10.2); Magnesium 1.7 mg/dL (1.6-2.3); Potassium 4.5 mmol/L (3.5-5.1); Total Bilirubin 0.2 mg/dL (0.2-1.3)
[2018-01-21 13:35] LABS: Troponin I 0.018 ng/mL (0.000-0.034)
--- NOTE | 2018-01-21 13:59 | XR ---
EXAMINATION TYPE: XR chest 2V DATE OF EXAM: 01/21/2018 COMPARISON: Prior chest x-ray 01/03/2018 HISTORY: Difficulty breathing and fever TECHNIQUE: Frontal and lateral views of the chest are obtained. FINDINGS: There is airspace disease in the right upper right lower lobe. Patient is rotated. Heart i s likely enlarged but rotation may accentuate appearance. There are overlying cardiac leads. Central vascularity appears somewhat prominently. No evident pneumothorax. Patient's known lung mass is obscu red. IMPRESSION: Findings suggestive of pneumonia, atypical congestive heart failure not excluded, follow -up recommended.
[2018-01-21] MEDS ORDERED: PNEUMONIA PROTOCOL UTILIZED 1 EACH MISC PO PRN (15:10)
[2018-01-21] MEDS ORDERED: AZITHROMYCIN 500 MG in SODIUM CHLORIDE 0.9% 250 ML IVPB STA (15:10)
[2018-01-21] MEDS ORDERED: cefTRIAXone IN SWFI 1,000 MG/10 ML SYRINGE IVP STA (15:10)
[2018-01-21] MEDS ORDERED: DILTIAZEM 50 MG in SODIUM CHLORIDE 0.9% 40 ML IV ONE (15:10)
[2018-01-21] MEDS: IPRATROPIUM-ALBUTEROL 3 ML NEB INHALATION SCH ×2 (15:44→19:50)
[2018-01-21 17:15] LABS: Glucose,Whole Blood 177 mg/dL (75-99)
[2018-01-21] MEDS ORDERED: IPRATROPIUM-ALBUTEROL 3 ML NEB INHALATION PRN (19:28)
[2018-01-21] MEDS: SYMBICORT 80-4.5 MCG INHALER INHALATION SCH (19:51)
[2018-01-21] MEDS ORDERED: ALBUTEROL NEBULIZED 2.5 MG/3 ML INHALATION SCH (20:00)
[2018-01-21] MEDS ORDERED: ALBUTEROL INHALER 60 PUFF/8 GM INHALER INHALATION SCH (20:00)
[2018-01-21 20:35] LABS: Glucose,Whole Blood 243 mg/dL (75-99)
[2018-01-21] MEDS: FUROSEMIDE 40 MG TAB PO SCH (22:31)
[2018-01-21] MEDS: ATORVASTATIN 40 MG TAB PO SCH (22:31)
[2018-01-21] MEDS: APIXABAN 5 MG TAB PO SCH (22:31)
[2018-01-21] MEDS: GABAPENTIN 400 MG CAP PO SCH (22:32)
[2018-01-21] MEDS: PANTOPRAZOLE 40 MG TABLET PO SCH (22:32)
[2018-01-21] MEDS: SUCRALFATE 1 GM TAB PO SCH (22:32)
[2018-01-21] MEDS: INSULIN ASPART 100 UNIT/ML 1 ML 10 ML VIAL SQ SCH (22:35)
[2018-01-22 06:03] LABS: Glucose,Whole Blood 174 mg/dL (75-99)
[2018-01-22] MEDS ORDERED: DILTIAZEM 50 MG in SODIUM CHLORIDE 0.9% 40 ML IV SCH ×2 (06:15→08:45)
[2018-01-22] MEDS: INSULIN ASPART 100 UNIT/ML 1 ML 10 ML VIAL SQ SCH ×4 (07:04→22:52)
[2018-01-22] MEDS: SUCRALFATE 1 GM TAB PO SCH ×4 (07:05→22:51)
[2018-01-22] MEDS: PANTOPRAZOLE 40 MG TABLET PO SCH ×2 (07:05→16:12)
[2018-01-22] MEDS: SYMBICORT 80-4.5 MCG INHALER INHALATION SCH ×2 (08:11→19:29)
[2018-01-22] MEDS: IPRATROPIUM-ALBUTEROL 3 ML NEB INHALATION SCH ×4 (08:11→19:29)
[2018-01-22] MEDS: INSULIN DETEMIR 100 UNIT/ML 10 ML VIAL SQ SCH (08:31)
[2018-01-22] MEDS: FUROSEMIDE 40 MG TAB PO SCH ×2 (08:32→16:11)
[2018-01-22] MEDS: LOSARTAN 50 MG TAB PO SCH (08:32)
[2018-01-22] MEDS: GABAPENTIN 400 MG CAP PO SCH ×3 (08:32→22:52)
[2018-01-22] MEDS: APIXABAN 5 MG TAB PO SCH ×2 (08:32→22:51)
[2018-01-22] MEDS: LORATADINE 10 MG TAB PO SCH (08:32)
[2018-01-22] MEDS: SPIRONOLACTONE 25 MG TAB PO SCH (08:33)
[2018-01-22] MEDS: METOPROLOL SUCCINATE (ER) 50 MG TAB.ER.24H PO SCH (08:33)
[2018-01-22] MEDS ORDERED: FUROSEMIDE 10 MG/ML 4 ML VIAL IV STA (09:40)
--- NOTE | 2018-01-22 09:43 | P.CRDCN ---
History of Present Illness Consult date: 01/22/18 Requesting physician: Ramonita Sorenson Consult reason: shortness of breath Chief complaint: Shortness of breath History of present illness: This is a 72-year-old female with history of COPD, lung cancer with prior left lobar lobectomy, status post chemotherapy and radiation, sleep apnea , hypertension, diabetes, GERD, paroxysmal atrial fibrillation, coronary artery disease with prior stent placement, who presented to the hospital with symptoms of progressively worsening shortness of breath over the past few days prior to admission. She also states that she has a cough but is unable to cough anything out. She denies any fever or chills at home. EKG on admission showed atrial fibrillation with rapid ventricular response, patient was initiated on Cardizem drip. Chest x-ray reveals findings suggestive of pneumonia, atypical CHF. It was a repeat chest x-ray performed this morning the results are yet pending. Blood pressure this morning 174/80, heart rate 120, 92% on 6 L of oxygen, temperature this morning is 97.1. Patient did have a low-grade temperature of 99.3. White blood cell count 11.9, hemoglobin 8.8, platelet count 305. Sodium 140, potassium 4.5, BUN 33, creatinine 0.9. Magnesium 1.7. Troponin 0.018. BNP level 2400. Patient was initiated on IV Cardizem in the emergency room, she has also been started on IV antibiotics. At the time of my examination this morning, patient has a persistent cough, nonproductive at this time. Denies any chest discomfort or palpitations, still feels quite short of breath. Past Medical History Past Medical History: Atrial Fibrillation, Heart Failure, COPD, Diabetes Mellitus, Hyperlipidemia, Hypertension, Memory Impairment Additional Past Medical History / Comment(s): COPD severe with an FEV1 of 36%, chronic hypoxic respiratory failure, non-small cell lung cancer with a previous left lower lobe resection, chronic atrial fibrillation, hypertension, coronary artery disease, diabetes mellitus, meningitis back in the 70s History of Any Multi-Drug Resistant Organisms: None Reported Past Surgical History: Heart Catheterization With Stent, Tubal Ligation Additional Past Surgical History / Comment(s): Left lower lobe lung removed, right shoulder rotator cuff. Past Anesthesia/Blood Transfusion Reactions: No Reported Reaction Additional Past Anesthesia/Blood Transfusion Reaction / Comment(s): Claustrophobia Date of Last Stent Placement:: unk Past Psychological History: No Psychological Hx Reported Smoking Status: Former smoker Past Alcohol Use History: None Reported Past Drug Use History: None Reported - Past Family History Mother History Unknown: Yes Family Medical History: No Reported History Father Family Medical History: Diabetes Mellitus Medications and Allergies Home Medications Medication Instructions Recorded Confirmed Type Atorvastatin [Lipitor] 40 mg PO HS 11/17/16 01/21/18 History Cholecalciferol [Vitamin D3] 4,000 unit PO DAILY 11/17/16 01/21/18 History Cyanocobalamin [Vitamin B-12] 500 mcg PO DAILY 11/17/16 01/21/18 History Fluticasone/Salmeterol [Advair 1 puff INHALATION RT-BID 11/17/16 01/21/18 History 250-50 Diskus] Gabapentin 800 mg PO TID 11/17/16 01/21/18 History Glimepiride [Amaryl] 4 mg PO AC-BID 11/17/16 01/21/18 History Insulin Aspart [NovoLOG Flexpen] 20 units SQ AC-TID 11/17/16 01/21/18 History Insulin Degludec [Tresiba 98 unit SQ DAILY 11/17/16 01/21/18 History Flextouch U-200] Albuterol Inhaler [Ventolin Hfa 2 puff INHALATION RT-BID 07/22/17 01/21/18 History Inhaler] Albuterol Nebulized [Ventolin 2.5 mg INHALATION RT-QID 07/22/17 01/21/18 History Nebulized] Loratadine [Claritin] 10 mg PO DAILY 07/22/17 01/21/18 History metFORMIN HCL [Glucophage] 500 mg PO BID 07/22/17 01/21/18 History Apixaban [Eliquis] 5 mg PO BID #60 tab 08/02/17 01/21/18 Rx Losartan [Cozaar] 100 mg PO DAILY #30 tab 08/02/17 01/21/18 Rx Metoprolol Succinate (ER) [Toprol 50 mg PO DAILY #60 tab.er.24h 08/02/17 Rx XL] Spironolactone [Aldactone] 25 mg PO DAILY #30 tab 08/02/17 01/21/18 Rx Furosemide [Lasix] 40 mg PO BID 12/31/17 01/21/18 History Sucralfate [Carafate] 1 gm PO ACHS 12/31/17 01/21/18 History Pantoprazole Sodium [Protonix] 40 mg PO BID #60 tablet. 01/05/18 01/21/18 Rx Allergies Allergy/AdvReac Type Severity Reaction Status Date / Time codeine Allergy Unknown Verified 01/21/18 13:13 Physical Exam Vitals: Vital Signs Temp Pulse Pulse Resp BP BP Pulse Ox 01/22/18 08:30 97.1 F L 120 H 18 174/85 92 L 01/22/18 08:14 108 H 01/22/18 04:15 91 L 01/22/18 04:00 99.3 F 132 H 20 185/77 91 L 01/22/18 00:00 97.2 F L 92 20 146/74 92 L 01/21/18 20:05 96 01/21/18 20:00 97.0 F L 97 20 146/65 92 L 01/21/18 19:51 91 93 L 01/21/18 17:39 98.8 F 103 H 20 144/65 92 L 01/21/18 16:38 98.2 F 96 18 152/72 92 L 01/21/18 15:38 98.7 F 111 H 18 164/74 92 L 01/21/18 13:54 99.4 F 01/21/18 13:53 93 18 162/66 90 L 01/21/18 13:46 126 H 18 156/71 92 L 01/21/18 13:28 125 H 20 137/86 93 L 01/21/18 13:13 120 H 01/21/18 12:55 122 H 01/21/18 12:53 92 L 01/21/18 12:38 98.7 F 102 H 20 139/67 Intake and Output 01/21/18 01/22/18 01/22/18 22:59 06:59 14:59 Intake Total 585 Balance 585 Intake: Intake, IV Titration 585 Amount Azithromycin 500 mg In 125 Sodium Chloride 0.9% 250 ml @ 125 mls/hr IVPB ONCE STA Rx#:[id number] Diltiazem 50 mg In Sodium 10 Chloride 0.9% 40 ml @ 5 MG/HR 5 mls/hr IV .Q10H ONE Rx#:[id number] Sodium Chloride 0.9% 1, 450 000 ml @ 100 mls/hr IV . Q10H STA Rx#:[id number] Other: Voiding Method Toilet Toilet # Voids 6 Weight 99.79 kg 102.1 kg PHYSICAL EXAMINATION: HEENT: Head is atraumatic, normocephalic. Pupils equal, round. Neck is supple. There is no elevated jugular venous pressure. HEART EXAMINATION: Heart S1 and S2 irregularly irregular CHEST EXAMINATION: Lungs reveal scattered wheezing with decreased air entry to the bases. ABDOMEN: Soft, obese, nontender. Bowel sounds are heard. No organomegaly noted. EXTREMITIES: 1+ peripheral pulses with trace to 1+ evidence of peripheral edema and no calf tenderness noted. NEUROLOGIC patient is awake, alert and oriented -3. . Results 01/21/18 12:48 01/21/18 12:48 Cardiac Enzymes 01/21/18 01/21/18 Range/Units 12:48 12:48 AST 15 (14-36) U/L CK-MB (CK-2) 1.0 (0.0-2.4) ng/mL Troponin I 0.018 (0.000-0.034) ng/mL Coagulation 01/21/18 Range/Units 12:48 PT 10.5 (9.0-12.0) sec APTT 22.1 (22.0-30.0) sec CBC 01/21/18 Range/Units 12:48 WBC 11.9 H (3.8-10.6) k/uL RBC 3.30 L (3.80-5.40) m/uL Hgb 8.8 L (11.4-16.0) gm/dL Hct 28.4 L (34.0-46.0) % Plt Count 305 (150-450) k/uL Comprehensive Metabolic Panel 01/21/18 Range/Units 12:48 Sodium 140 (137-145) mmol/L Potassium 4.5 (3.5-5.1) mmol/L Chloride 92 L (98-107) mmol/L Carbon Dioxide 36 H (22-30) mmol/L BUN 33 H (7-17) mg/dL Creatinine 0.96 (0.52-1.04) mg/dL Glucose 124 H (74-99) mg/dL Calcium 8.8 (8.4-10.2) mg/dL AST 15 (14-36) U/L ALT 19 (9-52) U/L Alkaline Phosphatase 68 (38-126) U/L Total Protein 6.0 L (6.3-8.2) g/dL Albumin 3.1 L (3.5-5.0) g/dL Current Medications Generic Name Dose Route Start Last Admin Trade Name Freq PRN Reason Stop Dose Admin Albuterol/Ipratropium 3 ml 01/21/18 16:00 01/22/18 08:11 Duoneb 0.5 Mg-3 Mg/3 Ml Soln INHALATION 3 ml RT-QID BRITTANI Administration Albuterol/Ipratropium 3 ml 01/21/18 19:28 Duoneb 0.5 Mg-3 Mg/3 Ml Soln INHALATION RT-Q2H PRN Shortness Of Breath Or Wheezing Apixaban 5 mg 01/21/18 21:00 01/22/18 08:32 Eliquis PO 5 mg BID BRITTANI Administration Atorvastatin Calcium 40 mg 01/21/18 21:00 01/21/18 22:31 Lipitor PO 40 mg HS BRITTANI Administration Azithromycin 500 mg 01/22/18 16:00 Zithromax PO Q24H BRITTANI Budesonide/Formoterol Fumarate 2 puff 01/21/18 20:00 01/22/18 08:11 Symbicort 80-4.5 Mcg Inhaler INHALATION 2 puff RT-BID BRITTANI Administration Ceftriaxone Sodium 1,000 mg 01/22/18 16:00 Rocephin IVP 01/25/18 16:01 Q24H BRITTANI Furosemide 40 mg 01/21/18 19:30 01/22/18 08:32 Lasix PO 40 mg BID@0900,1600 BRITTANI Administration Gabapentin 800 mg 01/21/18 22:00 01/22/18 08:32 Neurontin PO 800 mg TID BRITTANI Administration Diltiazem HCl 50 mg/ Sodium 50 mls @ 5 mls/hr 01/22/18 08:45 Chloride IV .Q10H BRITTANI 5 MG/HR Insulin Aspart 0 unit 01/21/18 21:00 01/22/18 07:04 Novolog SQ 3 unit ACHS BRITTANI Administration Protocol Insulin Detemir 98 unit 01/22/18 09:00 01/22/18 08:31 Levemir SQ 98 unit DAILY BRITTANI Administration Loratadine 10 mg 01/22/18 09:00 01/22/18 08:32 Claritin PO 10 mg DAILY BRITTANI Administration Losartan Potassium 100 mg 01/22/18 09:00 01/22/18 08:32 Cozaar PO 100 mg DAILY BRITTANI Administration Metoprolol Succinate 50 mg 01/22/18 09:00 01/22/18 08:33 Toprol Xl PO 50 mg DAILY BRITTANI Administration Miscellaneous Information 1 each 01/21/18 15:10 Pneumonia Protocol Utilized PO ONCE PRN Per Protocol Pantoprazole Sodium 40 mg 01/21/18 19:45 01/22/18 07:05 Protonix PO 40 mg AC-BID BRITTANI Administration Spironolactone 25 mg 01/22/18 09:00 01/22/18 08:33 Aldactone PO 25 mg DAILY BRITTANI Administration Sucralfate 1 gm 01/21/18 21:00 01/22/18 07:05 Carafate PO 1 gm ACHS BRITTANI Administration Intake and Output 01/21/18 01/22/18 01/22/18 22:59 06:59 14:59 Intake Total 585 Balance 585 Intake: Intake, IV Titration 585 Amount Azithromycin 500 mg In 125 Sodium Chloride 0.9% 250 ml @ 125 mls/hr IVPB ONCE STA Rx#:[id number] Diltiazem 50 mg In Sodium 10 Chloride 0.9% 40 ml @ 5 MG/HR 5 mls/hr IV .Q10H ONE Rx#:[id number] Sodium Chloride 0.9% 1, 450 000 ml @ 100 mls/hr IV . Q10H STA Rx#:[id number] Other: Voiding Method Toilet Toilet # Voids 6 Weight 99.79 kg 102.1 kg 01/21/18 12:48 01/21/18 12:48 EKG Interpretations (text) EKG shows atrial fibrillation with rapid ventricular response. Assessment and Plan Plan: Assessment and plan #1 symptoms of progressively worsening shortness of breath with associated fever and leukocytosis, likely combination of possible pneumonia, exacerbation of COPD and mild congestive heart failure, diastolic acute on chronic. Patient is currently on IV antibiotics. #2 atrial fibrillation with rapid ventricular response, on IV Cardizem. Patient is on Eliquis for anticoagulation, has history of chronic persistent atrial fibrillation #3 history of COPD #4 history of lung cancer status post left lower lobectomy and chemotherapy with radiation #5 diabetes #6 hypertension #7 hyperlipidemia #8 sleep apnea Plan We will obtain an echocardiogram with Doppler study. Patient's most recent echocardiogram with Doppler study was performed in July 2017 which revealed an ejection fraction of 55-60%. Moderate to severe pulmonary hypertension noted at that time. We will continue Eliquis 5 mg one tablet by mouth twice a day. Discontinue IV Cardizem and add oral Cardizem to the patient's medication regime. Continue Cozaar, metoprolol, and Aldactone. We will give the patient one time dose of IV Lasix. Further recommendations to follow. DNP note has been reviewed, I agree with a documented findings and plan of care. Patient was seen and examined.
--- NOTE | 2018-01-22 10:11 | XR ---
EXAMINATION TYPE: XR chest 1V portable DATE OF EXAM: 01/22/2018 HISTORY: Pneumonia. REFERENCE: Previous study dated 01/21/2018. FINDINGS: The heart remains mildly enlarged. Vascular congestion and pulmonary edema. I suspect small effusions. IMPRESSION: CONTINUING CHANGES OF PULMONARY EDEMA. I COULD NOT EXCLUDE SOME SUPERIMPOSED PNEUMONIA.
--- NOTE | 2018-01-22 10:40 | P.PN ---
Progress Note - Text This is an addendum to the dictated cardiology consultation. The patient presents with symptoms of progressive dyspnea, and was noted to be febrile on presentation. She has a known history of COPD, chronic persistent atrial fibrillation, coronary artery disease. She is unaware of the arrhythmia denies any associated dizziness, palpitations or syncope. She has no significant peripheral edema. She has been anticoagulated. On presentation she was in atrial fibrillation with a rapid ventricular response. She continues to have wheezing this morning. She is laying supine without significant change in her breathing. Her presentation is consistent with exacerbation of COPD and febrile episode. The rapid atrial flutter ablation rate is in response to her pulmonary status. We will continue on the beta kalyan but add calcium channel kalyan for better control of her rate. She will continue on her anticoagulation. An echocardiogram with Doppler will be obtained. Depending on her progress further recommendations will be made. Thank you for this consult we will follow with you.
[2018-01-22] MEDS: DILTIAZEM ORAL 60 MG TAB PO SCH ×3 (11:10→22:52)
[2018-01-22 11:51] LABS: Glucose,Whole Blood 278 mg/dL (75-99)
--- NOTE | 2018-01-22 12:12 | P.HPIM ---
History of Present Illness H&P Date: 01/22/18 Chief Complaint: Shortness of breath This is a 72-year-old female with past medical history noted below significant for severe COPD and paroxysmal atrial fibrillation who presented to the hospital with worsening shortness of breath. Patient said that his symptoms started 2 days ago and is being getting progressively worse. Her shortness of breath is mostly exertional. She describes a nonproductive cough that is being ongoing for several days as well. There is no recent sick contact. No fevers or chills. No chest pain. Patient was evaluated in the emergency room and was found to be in atrial fibrillation with rapid ventricular response and heart rate up to 132. Patient underwent a chest x-ray showing evidence of bilateral pulmonary edema with suspected underlying pneumonia. Patient was started on a Cardizem drip and was given one-time dose of IV Lasix. She is also on antibiotic. She was noted to have some wheezing in the emergency room that resolved today. Review of Systems Review of system: 14 points review of systems were obtained and were negative except to what were mentioned in the HPI. Past Medical History Past Medical History: Atrial Fibrillation, Heart Failure, COPD, Diabetes Mellitus, Hyperlipidemia, Hypertension, Memory Impairment Additional Past Medical History / Comment(s): COPD severe with an FEV1 of 36%, chronic hypoxic respiratory failure, non-small cell lung cancer with a previous left lower lobe resection, chronic atrial fibrillation, hypertension, coronary artery disease, diabetes mellitus, meningitis back in the 70s History of Any Multi-Drug Resistant Organisms: None Reported Past Surgical History: Heart Catheterization With Stent, Tubal Ligation Additional Past Surgical History / Comment(s): Left lower lobe lung removed, right shoulder rotator cuff. Past Anesthesia/Blood Transfusion Reactions: No Reported Reaction Additional Past Anesthesia/Blood Transfusion Reaction / Comment(s): Claustrophobia Date of Last Stent Placement:: unk Past Psychological History: No Psychological Hx Reported Smoking Status: Former smoker Past Alcohol Use History: None Reported Past Drug Use History: None Reported - Past Family History Mother History Unknown: Yes Family Medical History: No Reported History Father Family Medical History: Diabetes Mellitus Medications and Allergies Home Medications Medication Instructions Recorded Confirmed Type Atorvastatin [Lipitor] 40 mg PO HS 11/17/16 01/21/18 History Cholecalciferol [Vitamin D3] 4,000 unit PO DAILY 11/17/16 01/21/18 History Cyanocobalamin [Vitamin B-12] 500 mcg PO DAILY 11/17/16 01/21/18 History Fluticasone/Salmeterol [Advair 1 puff INHALATION RT-BID 11/17/16 01/21/18 History 250-50 Diskus] Gabapentin 800 mg PO TID 11/17/16 01/21/18 History Glimepiride [Amaryl] 4 mg PO AC-BID 11/17/16 01/21/18 History Insulin Aspart [NovoLOG Flexpen] 20 units SQ AC-TID 11/17/16 01/21/18 History Insulin Degludec [Tresiba 98 unit SQ DAILY 11/17/16 01/21/18 History Flextouch U-200] Albuterol Inhaler [Ventolin Hfa 2 puff INHALATION RT-BID 07/22/17 01/21/18 History Inhaler] Albuterol Nebulized [Ventolin 2.5 mg INHALATION RT-QID 07/22/17 01/21/18 History Nebulized] Loratadine [Claritin] 10 mg PO DAILY 07/22/17 01/21/18 History metFORMIN HCL [Glucophage] 500 mg PO BID 07/22/17 01/21/18 History Apixaban [Eliquis] 5 mg PO BID #60 tab 08/02/17 01/21/18 Rx Losartan [Cozaar] 100 mg PO DAILY #30 tab 08/02/17 01/21/18 Rx Metoprolol Succinate (ER) [Toprol 50 mg PO DAILY #60 tab.er.24h 08/02/17 Rx XL] Spironolactone [Aldactone] 25 mg PO DAILY #30 tab 08/02/17 01/21/18 Rx Furosemide [Lasix] 40 mg PO BID 12/31/17 01/21/18 History Sucralfate [Carafate] 1 gm PO ACHS 12/31/17 01/21/18 History Pantoprazole Sodium [Protonix] 40 mg PO BID #60 tablet. 01/05/18 01/21/18 Rx Allergies Allergy/AdvReac Type Severity Reaction Status Date / Time codeine Allergy Unknown Verified 01/21/18 13:13 Physical Exam Vitals: Vital Signs Temp Pulse Pulse Resp BP BP Pulse Ox 01/22/18 12:02 104 H 01/22/18 11:49 100 01/22/18 11:10 102 H 18 132/62 92 L 01/22/18 08:30 97.1 F L 120 H 18 174/85 92 L 01/22/18 08:14 108 H 01/22/18 04:15 91 L 01/22/18 04:00 99.3 F 132 H 20 185/77 91 L 01/22/18 00:00 97.2 F L 92 20 146/74 92 L 01/21/18 20:05 96 01/21/18 20:00 97.0 F L 97 20 146/65 92 L 01/21/18 19:51 91 93 L 01/21/18 17:39 98.8 F 103 H 20 144/65 92 L 01/21/18 16:38 98.2 F 96 18 152/72 92 L 01/21/18 15:38 98.7 F 111 H 18 164/74 92 L 01/21/18 13:54 99.4 F 01/21/18 13:53 93 18 162/66 90 L 01/21/18 13:46 126 H 18 156/71 92 L 01/21/18 13:28 125 H 20 137/86 93 L 01/21/18 13:13 120 H 01/21/18 12:55 122 H 01/21/18 12:53 92 L 01/21/18 12:38 98.7 F 102 H 20 139/67 Intake and Output 01/21/18 01/22/18 01/22/18 22:59 06:59 14:59 Intake Total 585 Balance 585 Intake: Intake, IV Titration 585 Amount Azithromycin 500 mg In 125 Sodium Chloride 0.9% 250 ml @ 125 mls/hr IVPB ONCE STA Rx#:[id number] Diltiazem 50 mg In Sodium 10 Chloride 0.9% 40 ml @ 5 MG/HR 5 mls/hr IV .Q10H ONE Rx#:[id number] Sodium Chloride 0.9% 1, 450 000 ml @ 100 mls/hr IV . Q10H STA Rx#:[id number] Other: Voiding Method Toilet Toilet # Voids 6 Weight 99.79 kg 102.1 kg General: The patient is awake and alert, in no distress Eye: there is normal conjunctiva bilaterally. Neck: The neck is supple, there is no JVD. Cardiovascular: Normal S1-S2, no S3-S4, no murmurs. Respiratory: Lungs clear to auscultation bilaterally Gastrointestinal: Abdomen is soft, nontender Musculoskeletal: There is no pedal edema. Neurological:. Speech is normal. Skin: Skin is warm and dry Results CBC & Chem 7: 01/21/18 12:48 01/21/18 12:48 Labs: Abnormal Lab Results - Last 24 Hours (Table) 01/21/18 01/21/18 01/21/18 Range/Units 12:48 12:48 12:48 WBC 11.9 H (3.8-10.6) k/uL RBC 3.30 L (3.80-5.40) m/uL Hgb 8.8 L (11.4-16.0) gm/dL Hct 28.4 L (34.0-46.0) % Neutrophils # 9.4 H (1.3-7.7) k/uL Chloride 92 L (98-107) mmol/L Carbon Dioxide 36 H (22-30) mmol/L BUN 33 H (7-17) mg/dL Glucose 124 H (74-99) mg/dL POC Glucose (mg/dL) (75-99) mg/dL Total Creatine Kinase 26 L (30-135) U/L Total Protein 6.0 L (6.3-8.2) g/dL Albumin 3.1 L (3.5-5.0) g/dL 01/21/18 01/21/18 01/22/18 Range/Units 17:06 20:33 05:58 WBC (3.8-10.6) k/uL RBC (3.80-5.40) m/uL Hgb (11.4-16.0) gm/dL Hct (34.0-46.0) % Neutrophils # (1.3-7.7) k/uL Chloride (98-107) mmol/L Carbon Dioxide (22-30) mmol/L BUN (7-17) mg/dL Glucose (74-99) mg/dL POC Glucose (mg/dL) 177 H 243 H 174 H (75-99) mg/dL Total Creatine Kinase (30-135) U/L Total Protein (6.3-8.2) g/dL Albumin (3.5-5.0) g/dL 01/22/18 Range/Units 11:37 WBC (3.8-10.6) k/uL RBC (3.80-5.40) m/uL Hgb (11.4-16.0) gm/dL Hct (34.0-46.0) % Neutrophils # (1.3-7.7) k/uL Chloride (98-107) mmol/L Carbon Dioxide (22-30) mmol/L BUN (7-17) mg/dL Glucose (74-99) mg/dL POC Glucose (mg/dL) 278 H (75-99) mg/dL Total Creatine Kinase (30-135) U/L Total Protein (6.3-8.2) g/dL Albumin (3.5-5.0) g/dL Thrombosis Risk Factor Assmnt - Choose All That Apply Each Factor Represents 1 point: Abnormal pulmonary function (COPD), Obesity ( BMI >25), Serious lung disease incl. pneumonia (< 1month) Each Risk Factor Represents 2 Points: Age 61-74 years Thrombosis Risk Factor Assessment Total Risk Factor Score: 5 Thrombosis Risk Factor Assessment Level: High Risk Assessment and Plan Assessment: 1. Atrial fibrillation with rapid ventricular response, patient is on anticoagulation with Eliquis. She was started initially on IV Cardizem drip and currently transitioned to oral Cardizem. She was seen and evaluated by cardiology. 2. Underlying COPD with mild exacerbation, currently no evidence of wheezing. We will continue bronchodilators. 3. Acute bacterial bronchitis with questionable pneumonia on chest x-ray, patient was started on IV ceftriaxone and oral azithromycin. Will finish 7 days course of antibiotic. May transitioned to oral antibiotic when improving clinically. 4. History of lung cancer with prior left lobectomy. 5. Essential hypertension, blood pressure not well controlled. Home medication resumed. I'll continue to monitor closely. 6. Type 2 diabetes mellitus, maintained on high dose of insulin at home. Blood glucose within acceptable range. Awaiting A1c. Patient was seen and evaluated by cardiology. Repeat echocardiogram ordered. We will continue current regimen otherwise. If he Can the Morning.
--- NOTE | 2018-01-22 14:22 | P.CNPUL ---
History of Present Illness Consult date: 01/22/18 Requesting physician: Ramonita Sorenson Reason for consult: dyspnea, abnormal CXR/CT Chief complaint: Shortness of breath, weakness History of present illness: This is a very pleasant 72-year-old female patient with a known history of atrial fibrillation anticoagulated with Eliquis, coronary artery disease with previous stent placement, diastolic congestive heart failure, diabetes mellitus , hyperlipidemia, hypertension, meningitis back in the 1970s. She also has a history of non-small cell lung cancer with previous left lower lobe resection in 2003 and a most recent computed tomography scan revealing a new right lower lobe mass abutting the pleural surface strongly suspicious for bronchogenic carcinoma. She has a history of significant chronic obstructive pulmonary disease she is oxygen dependent. Her last FEV1 value was 34% of predicted. She follows with Dr. Arguello in our office for the same. She was seen there on 01/18/2018 for post hospital follow-up secondary to GI symptoms. At that time she was doing fairly well. He had a long discussion regarding the new findings on CAT scan. The location of the mass would be difficult to access due to it being just behind a rib. If it were to grow in size a needle biopsy could be considered. Possible radiation treatment/[employer] may be one treatment modality. She'll follow up with him in the outpatient setting in that regard. She presented here to the emergency room again yesterday with complaints of increasing shortness of breath and weakness. Her chest x-ray shows evidence of vascular congestion and pulmonary edema with small effusions. Echocardiogram from July 2017 revealed a preserved left ventricular systolic function with ejection fraction between 55 and 60%. There is moderate to severe pulmonary hypertension with an RVSP of 57 mmHg. She is seen today in consultation on the selective care unit. She is awake and alert in no acute distress. She is dyspneic with minimal conversation. Dyspneic with minimal exertion. She is maintaining O2 saturations in the low 90s on 6 L/m per nasal cannula. She's been afebrile. Hemodynamically stable. White count 11.9. Hemoglobin 8.8. Platelet count 305. Creatinine 0.96. ProBNP 2400. She is currently on Lasix 40 mg by mouth twice a day Review of Systems Constitutional: Reports fatigue, Reports weakness Eyes: denies blurred vision, denies decreased vision Ears: deny: decreased hearing Ears, nose, mouth and throat: Denies headache, Denies sore throat Cardiovascular: Reports decreased exercise tolerance, Reports dyspnea on exertion, Reports irregular heart beat, Reports leg edema Respiratory: Reports congestion, Reports cough, Reports dyspnea, Reports home oxygen Gastrointestinal: Reports abdominal pain Genitourinary: Denies dysuria, Denies hematuria Musculoskeletal: Reports gait dysfunction, Reports myalgias Integumentary: Denies pruritus, Denies rash Neurological: Reports tremors, Reports weakness Psychiatric: Reports anxiety Endocrine: Denies fatigue, Denies weight change Past Medical History Past Medical History: Atrial Fibrillation, Heart Failure, COPD, Diabetes Mellitus, Hyperlipidemia, Hypertension, Memory Impairment Additional Past Medical History / Comment(s): COPD severe with an FEV1 of 36%, chronic hypoxic respiratory failure, non-small cell lung cancer with a previous left lower lobe resection, chronic atrial fibrillation, hypertension, coronary artery disease, diabetes mellitus, meningitis back in the 70s History of Any Multi-Drug Resistant Organisms: None Reported Past Surgical History: Heart Catheterization With Stent, Tubal Ligation Additional Past Surgical History / Comment(s): Left lower lobe lung removed, right shoulder rotator cuff. Past Anesthesia/Blood Transfusion Reactions: No Reported Reaction Additional Past Anesthesia/Blood Transfusion Reaction / Comment(s): Claustrophobia Date of Last Stent Placement:: unk Past Psychological History: No Psychological Hx Reported Smoking Status: Former smoker Past Alcohol Use History: None Reported Past Drug Use History: None Reported - Past Family History Mother History Unknown: Yes Family Medical History: No Reported History Father Family Medical History: Diabetes Mellitus Medications and Allergies Home Medications Medication Instructions Recorded Confirmed Type Atorvastatin [Lipitor] 40 mg PO HS 11/17/16 01/21/18 History Cholecalciferol [Vitamin D3] 4,000 unit PO DAILY 11/17/16 01/21/18 History Cyanocobalamin [Vitamin B-12] 500 mcg PO DAILY 11/17/16 01/21/18 History Fluticasone/Salmeterol [Advair 1 puff INHALATION RT-BID 11/17/16 01/21/18 History 250-50 Diskus] Gabapentin 800 mg PO TID 11/17/16 01/21/18 History Glimepiride [Amaryl] 4 mg PO AC-BID 11/17/16 01/21/18 History Insulin Aspart [NovoLOG Flexpen] 20 units SQ AC-TID 11/17/16 01/21/18 History Insulin Degludec [Tresiba 98 unit SQ DAILY 11/17/16 01/21/18 History Flextouch U-200] Albuterol Inhaler [Ventolin Hfa 2 puff INHALATION RT-BID 07/22/17 01/21/18 History Inhaler] Albuterol Nebulized [Ventolin 2.5 mg INHALATION RT-QID 07/22/17 01/21/18 History Nebulized] Loratadine [Claritin] 10 mg PO DAILY 07/22/17 01/21/18 History metFORMIN HCL [Glucophage] 500 mg PO BID 07/22/17 01/21/18 History Apixaban [Eliquis] 5 mg PO BID #60 tab 08/02/17 01/21/18 Rx Losartan [Cozaar] 100 mg PO DAILY #30 tab 08/02/17 01/21/18 Rx Metoprolol Succinate (ER) [Toprol 50 mg PO DAILY #60 tab.er.24h 08/02/17 Rx XL] Spironolactone [Aldactone] 25 mg PO DAILY #30 tab 08/02/17 01/21/18 Rx Furosemide [Lasix] 40 mg PO BID 12/31/17 01/21/18 History Sucralfate [Carafate] 1 gm PO ACHS 12/31/17 01/21/18 History Pantoprazole Sodium [Protonix] 40 mg PO BID #60 tablet. 01/05/18 01/21/18 Rx Allergies Allergy/AdvReac Type Severity Reaction Status Date / Time codeine Allergy Unknown Verified 01/21/18 13:13 Physical Exam Vitals: Vital Signs Temp Pulse Pulse Resp BP BP Pulse Ox 01/22/18 12:02 104 H 01/22/18 11:49 100 01/22/18 11:10 102 H 18 132/62 92 L 01/22/18 08:30 97.1 F L 120 H 18 174/85 92 L 01/22/18 08:14 108 H 01/22/18 04:15 91 L 01/22/18 04:00 99.3 F 132 H 20 185/77 91 L 01/22/18 00:00 97.2 F L 92 20 146/74 92 L 01/21/18 20:05 96 01/21/18 20:00 97.0 F L 97 20 146/65 92 L 01/21/18 19:51 91 93 L 01/21/18 17:39 98.8 F 103 H 20 144/65 92 L 01/21/18 16:38 98.2 F 96 18 152/72 92 L 01/21/18 15:38 98.7 F 111 H 18 164/74 92 L Intake and Output 01/21/18 01/22/18 01/22/18 22:59 06:59 14:59 Intake Total 585 Balance 585 Intake: Intake, IV Titration 585 Amount Azithromycin 500 mg In 125 Sodium Chloride 0.9% 250 ml @ 125 mls/hr IVPB ONCE STA Rx#:[id number] Diltiazem 50 mg In Sodium 10 Chloride 0.9% 40 ml @ 5 MG/HR 5 mls/hr IV .Q10H ONE Rx#:[id number] Sodium Chloride 0.9% 1, 450 000 ml @ 100 mls/hr IV . Q10H STA Rx#:[id number] Other: Voiding Method Toilet Toilet # Voids 6 Weight 99.79 kg 102.1 kg GENERAL EXAM: Alert, fairly comfortable in no apparent distress. HEAD: Normocephalic. EYES: Normal reaction of pupils, equal size. NOSE: Clear with pink turbinates. THROAT: No erythema or exudates. NECK: No masses, no JVD. CHEST: No chest wall deformity. LUNGS: Equal air entry with crackles in the bilateral posterior bases. Faint end expiratory wheeze. Diminished. CVS: S1 and S2 normal with no audible murmur, regular rhythm. ABDOMEN: No hepatosplenomegaly, normal bowel sounds, no guarding or rigidity. SPINE: No scoliosis or deformity SKIN: No rashes CENTRAL NERVOUS SYSTEM: Tremors. No focal deficits, tone is normal in all 4 extremities. EXTREMITIES: There is 1-2+ peripheral edema. No clubbing, no cyanosis. Peripheral pulses are intact. Results - Laboratory Findings CBC and BMP: 01/21/18 12:48 01/21/18 12:48 PT/INR, D-dimer PT 10.5 sec (9.0-12.0) 01/21/18 12:48 INR 1.1 (<1.2) 01/21/18 12:48 Abnormal lab findings: Abnormal Labs 01/21/18 01/21/18 01/21/18 12:48 12:48 12:48 WBC 11.9 H RBC 3.30 L Hgb 8.8 L Hct 28.4 L Neutrophils # 9.4 H Chloride 92 L Carbon Dioxide 36 H BUN 33 H Glucose 124 H POC Glucose (mg/dL) Total Creatine Kinase 26 L Total Protein 6.0 L Albumin 3.1 L 01/21/18 01/21/18 01/22/18 17:06 20:33 05:58 WBC RBC Hgb Hct Neutrophils # Chloride Carbon Dioxide BUN Glucose POC Glucose (mg/dL) 177 H 243 H 174 H Total Creatine Kinase Total Protein Albumin 01/22/18 11:37 WBC RBC Hgb Hct Neutrophils # Chloride Carbon Dioxide BUN Glucose POC Glucose (mg/dL) 278 H Total Creatine Kinase Total Protein Albumin - Diagnostic Findings Chest x-ray: image reviewed Assessment and Plan Assessment: Impression: #1 Acute on chronic hypoxic respiratory failure, multifactorial, secondary to acute exacerbation of diastolic congestive heart failure, acute exacerbation of chronic obstructive pulmonary disease, atrial fibrillation with rapid ventricular response, anemia. #2 Acute exacerbation of diastolic congestive heart failure. Previous echocardiogram revealing preserved left ventricular systolic function with ejection fraction 55-60%. #3 Acute exacerbation of chronic obstructive pulmonary disease, oxygen dependent , FEV1 value of 34% of predicted. #4 History of non-small cell lung cancer with previous left lower lobectomy in 2003. #5 Recent computed tomography scan revealing a right lower lobe mass abutting the pleural surface strongly suspicious for bronchogenic carcinoma. Under investigation in the outpatient setting. #6 Coronary artery disease with previous stent placement. #7 Atrial fibrillation with rapid ventricular response. Currently on a Cardizem drip. Anticoagulated with Eliquis. #8 Pulmonary hypertension. #9 Diabetes mellitus. #10 Hyperlipidemia. #11 Hypertension. #12 Remote history of meningitis. Plan: The patient was seen and evaluated by Dr. Bowman. Her chest x-ray and labs were reviewed. We'll continue to diurese the patient. Continue with her COPD medications including bronchodilators 4 times a day and when necessary, Symbicort. Antibiotics in the form of ceftriaxone and azithromycin. She is anticoagulated with Eliquis. Protonix for GI prophylaxis. Follow up with Dr. Arguello in our office regarding the right lower lung mass. We will continue to follow and make further recommendations based on her clinical status. I, the cosigning physician, performed a history & physical examination of the patient. Lungs sounds with crackles in the bilateral posterior bases. Maintaining good O2 saturations in the 90s on 6 L/m per nasal cannula. I discussed the assessment and plan of care with my nurse practitioner, Juany Nielsen. I attest to the above note as dictated by her. Time with Patient: Greater than 30
[2018-01-22 14:40] LABS: Hemoglobin A1C 7.7 % (4.0-6.0)
--- NOTE | 2018-01-22 15:21 | ECHOF ---
Referral Reason:chf MEASUREMENTS -------- HEIGHT: 172.7 cm WEIGHT: 102.1 kg BP: 174/85 RVIDd: 3.4 cm (< 3.3) IVSd: 1.6 cm (0.6 - 1.1) LVIDd: 4.6 cm (3.9 - 5.3) LVPWd: 1.4 cm (0.6 - 1.1) IVSs: 2.0 cm LVIDs: 3.3 cm LVPWs: 1.8 cm LA Diam: 4.3 cm (2.7 - 3.8) LAESV Index (A-L): 31.59 ml/m Ao Diam: 2.0 cm (2.0 - 3.7) MV EXCURSION: 8.482 mm (> 18.000) MV EF SLOPE: 49 mm/s (70 - 150) EPSS: 0.6 cm RAP: 5.00 mmHg RVSP: 37.86 mmHg FINDINGS -------- Atrial fibrillation. This was a technically adequate study. The left ventricular size is normal. There is moderate concentric left ventricular hypertrophy. O verall left ventricular systolic function is normal with, an EF between 55 - 60 %. The right ventricle is mildly enlarged. LA is midly dilated 29-33ml/m2. The right atrium is normal in size. There is mild aortic valve sclerosis. Mild mitral annular calcification present. Mild mitral regurgitation is present. Mild tricuspid regurgitation present. There is mild pulmonary hypertension. The right ventricular systolic pressure, as measured by Doppler, is 37.86mmHg. Trace/mild (physiologic) pulmonic regurgitation. The aortic root size is normal. Normal inferior vena cava with normal inspiratory collapse consistent with estimated right atrial pre ssure of 5 mmHg. There is no pericardial effusion. CONCLUSIONS -------- 1. Atrial fibrillation. 2. This was a technically adequate study. 3. The left ventricular size is normal. 4. There is moderate concentric left ventricular hypertrophy. 5. Overall left ventricular systolic function is normal with, an EF between 55 - 60 %. 6. The right ventricle is mildly enlarged. 7. LA is midly dilated 29-33ml/m2. 8. There is mild aortic valve sclerosis. 9. Mild mitral annular calcification present. 10. Mild mitral regurgitation is present. 11. Mild tricuspid regurgitation present. 12. There is mild pulmonary hypertension. 13. Trace/mild (physiologic) pulmonic regurgitation. 14. The aortic root size is normal. 15. Normal inferior vena cava with normal inspiratory collapse consistent with estimated right atrial pressure of 5 mmHg. 16. There is no pericardial effusion. TARE WEIGHER: Anna Calderon RDCS
[2018-01-22] MEDS ORDERED: AZITHROMYCIN 500 MG TAB PO SCH (16:00)
[2018-01-22] MEDS ORDERED: cefTRIAXone IN SWFI 1,000 MG/10 ML SYRINGE IVP SCH (16:00)
[2018-01-22 16:58] LABS: Glucose,Whole Blood 220 mg/dL (75-99)
[2018-01-22 21:22] LABS: Glucose,Whole Blood 243 mg/dL (75-99)
[2018-01-22] MEDS: ATORVASTATIN 40 MG TAB PO SCH (22:51)
[2018-01-23 06:08] LABS: Glucose,Whole Blood 247 mg/dL (75-99)
[2018-01-23 06:45] LABS: Albumin 3.3 g/dL (3.5-5.0); Potassium 5.1 mmol/L (3.5-5.1); Total Bilirubin 0.3 mg/dL (0.2-1.3); Total Protein 6.4 g/dL (6.3-8.2)
[2018-01-23 06:52] LABS: Basophils # (A) 0.1 k/uL (0-0.2); Basophils % (A) 1 %; Eosinophils # (A) 0.2 k/uL (0-0.7); Eosinophils % (A) 1 %; HCT 29.8 % (34.0-46.0); Hypochromasia Marked; Lymphocytes # (A) 2.7 k/uL (1.0-4.8); Lymphocytes % (A) 20 %; MCH 26.7 pg (25.0-35.0); MCHC 30.2 g/dL (31.0-37.0); MCV 88.3 fL (80.0-100.0); Mean Platelet Volume 7.4; Monocytes # (A) 0.9 k/uL (0-1.0); Monocytes % (A) 7 %; Neutrophils # (A) 9.5 k/uL (1.3-7.7); Neutrophils % (A) 70 %; Platelet Count 341 k/uL (150-450); RBC 3.37 m/uL (3.80-5.40); RDW 14.2 % (11.5-15.5); WBC 13.7 k/uL (3.8-10.6)
[2018-01-23] MEDS: PANTOPRAZOLE 40 MG TABLET PO SCH ×2 (07:04→16:51)
[2018-01-23] MEDS: SUCRALFATE 1 GM TAB PO SCH (07:04)
[2018-01-23] MEDS: INSULIN ASPART 100 UNIT/ML 1 ML 10 ML VIAL SQ SCH ×5 (07:05→23:59)
[2018-01-23] MEDS: IPRATROPIUM-ALBUTEROL 3 ML NEB INHALATION SCH ×4 (07:08→19:16)
[2018-01-23] MEDS: SYMBICORT 80-4.5 MCG INHALER INHALATION SCH (07:08)
[2018-01-23 07:13] LABS: Glucose,Whole Blood 205 mg/dL (75-99)
[2018-01-23 07:22] LABS: ABG Base Excess 9.5 mmol/L; ABG HCO3 38 mmol/L (21-25); ABG Oxygen Saturation 87.2 % (94-97); ABG PO2 66 mmHg (83-108); ABG TCO2 41 mmol/L (19-24)
[2018-01-23] MEDS ORDERED: FUROSEMIDE 10 MG/ML 4 ML VIAL IV STA (07:22)
[2018-01-23 07:26] LABS: ABG PH 7.19 (7.35-7.45)
[2018-01-23 07:27] LABS: ABG PCO2 98 mmHg (35-45)
[2018-01-23] MEDS ORDERED: NALOXONE 0.4 MG/ML 1 ML VIAL IV PRN (07:50)
[2018-01-23] MEDS ORDERED: ACETAMINOPHEN IV (For NPO) 1,000 MG in EMPTY BAG 1 BAG IVPB ONE (07:50)
--- NOTE | 2018-01-23 07:55 | XR ---
EXAMINATION TYPE: XR chest 1V portable DATE OF EXAM: 01/23/2018 HISTORY: Resp distress. REFERENCE: Previous study dated 01/22/2018. FINDINGS: The heart is enlarged. There is worsening right-sided airspace disease. There is stable lef t-sided airspace disease. I suspect small bilateral effusions. IMPRESSION: WORSENING RIGHT-SIDED AIRSPACE DISEASE. THIS MAY REPRESENT SUPERIMPOSED PNEUMONIA.
[2018-01-23] MEDS ORDERED: ACETAMINOPHEN IV (For NPO) 1,000 MG in EMPTY BAG 1 BAG IVPB PRN (08:07)
[2018-01-23] MEDS: SODIUM CHLORIDE 0.9% 1,000 ML IV SCH (08:11)
[2018-01-23 08:20] LABS: Amorphous Sediment,Urine Occasional /hpf; Appearance,Urine Clear (Clear); Bacteria,Urine Rare /hpf; Bilirubin,Urine Negative (Negative); Blood,Urine Negative (Negative); Color,Urine Yellow; Glucose,Urine (UA) Trace (Negative); Hyaline Casts,Urine 3 /lpf (0-2); Ketones,Urine Negative (Negative); Leukocyte Esterase,Urine Negative (Negative); Mucus,Urine Rare /hpf; Nitrite,Urine Negative (Negative); PH, Urine 5.5 (5.0-8.0); Protein,Urine 2+ (Negative); RBC,Urine <1 /hpf (0-5); Squamous Epithelial Cell,Urine <1 /hpf (0-4); Urobilinogen,Urine <2.0 mg/dL (<2.0); WBC,Urine 2 /hpf (0-5)
[2018-01-23 08:36] LABS: ABG Base Excess 10.6 mmol/L; ABG HCO3 38 mmol/L (21-25); ABG Oxygen Saturation 95.9 % (94-97); ABG PH 7.26 (7.35-7.45); ABG PO2 89 mmHg (83-108); ABG TCO2 40 mmol/L (19-24)
[2018-01-23 08:39] LABS: ABG PCO2 84 mmHg (35-45)
--- NOTE | 2018-01-23 08:57 | PN ---
PROGRESS NOTE Mrs. Tavarez 72-year-old female who presented with symptoms of progressive dyspnea. She has a known history of COPD, prior history of lung cancer, history of atrial fibrillation, coronary artery disease, who presented with worsening dyspnea and evidence suggestive of exacerbation of chronic obstructive pulmonary disease with an element of diastolic congestive heart failure. Early this morning, she became more somnolent and her blood gases revealed severe acidosis. Because of that, she was transferred to the ICU and she is on the BiPAP at this point. She is in atrial fibrillation with a relatively controlled ventricular response. She had a repeat echocardiogram that revealed evidence of mild pulmonary hypertension with a normal left ventricular systolic function. She received IV Lasix and she has good urinary output. Her chest x-ray is consistent with probable infiltrate on the right side. MEDICATION: At this time include Eliquis 5 mg twice a day, Lipitor 40 mg daily, diltiazem 60 mg 3 times a day, Lasix 40 mg twice a day, losartan 100 mg daily, metoprolol succinate 50 mg daily, spironolactone 25 mg daily. PHYSICAL EXAMINATION: Blood pressure running in the 150-160 with a heart rate in the low 100s. Afebrile. LUNGS: Few crackles. HEART: Irregular regular S1, S2. No S3 with systolic murmur. No diastolic murmur. ABDOMEN: Soft, obese. EXTREMITIES: +1 edema. NEUROLOGICALLY: She is somnolent. LAB DATA: Revealed a hemoglobin 9.0, white blood cells 13.7, BUN and creatinine 38 and 1.1. Blood gas revealed pH 7.19 with a pCO2 of 98. IMPRESSION: 1. Worsening dyspnea with appearance of pneumonia on the right side. 2. Element of congestive heart failure with diastolic dysfunction. 3. History of coronary artery disease. 4. Atrial fibrillation, chronic and anticoagulated. RECOMMENDATION: From the cardiac standpoint, I will switch her to IV beta kalyan at this time. We will switch her to IV Lasix. We will follow her renal function. Her blood gas will be followed. She may require mechanical ventilation. Depending on the repeat blood gases. MMODL / IJN: [id number] /
[2018-01-23] MEDS ORDERED: FUROSEMIDE 10 MG/ML 4 ML VIAL IV SCH (09:00)
[2018-01-23 09:11] LABS: Calcium 8.8 mg/dL (8.4-10.2); Magnesium 1.9 mg/dL (1.6-2.3); Phosphorus 5.8 mg/dL (2.5-4.5); Potassium 5.3 mmol/L (3.5-5.1)
[2018-01-23] MEDS: METOPROLOL TARTRATE 5 MG/5 ML VIAL IVP SCH ×3 (09:44→23:23)
--- NOTE | 2018-01-23 10:41 | P.PN ---
Subjective Progress Note Date: 01/23/18 Principal diagnosis: Respiratory failure Progress note dated 01/23/2018 This is a 72-year-old female seen yesterday in consultation by myself and our nurse practitioner. She came with a hypoxemic respiratory failure which is multifactorial in part related to diastolic CHF, atrial fibrillation with RVR, and COPD exacerbation. Apparently sometime this morning, she became more short of breath. Her saturations drop. The respiratory therapist and nurse put her on high flow oxygen. That probably necessitated overload and initiated an episode of acute hypercapnic respiratory failure. Her initial blood gases when the reported to me were very poor with that much higher PaCO2 and much lower pH. I told the nurse to move the patient to the ICU and put her on BiPAP. Currently on BiPAP at IPAP of 10 and EPAP of 5. We've been able to titrate the FiO2 down to 50%. Most recent blood gases show a PaO2 of 89 and a pH CO2 of 84 and a pH 7.26. We'll repeat another blood gas in about an hour to make sure she is continuing to move and the positive direction. She's getting a saline IV at 20 mL an hour. We'll have to go through her med list and make changes were appropriate. Her chest x-ray shows bilateral infiltrates right greater than left and she may have aspirated sometime this morning. It could also be all just asymmetric pulmonary edema. Her FEV1 is only 34% of predicted and making her stage III/stage IV COPD. Her ejection fraction is 55-60%. She does have a previous history of non-small cell lung cancer with previous left lower lobectomy in 2004. She also has a computed tomography scan revealing a mass in the right lower lobe abutting the pleural surface. This is strongly suggestive of bronchogenic carcinoma. She also has a history of CAD with previous stent placement atrial fibrillation pulmonary hypertension diabetes hyperlipidemia hypertension and a remote history of meningitis. Her overall prognosis is poor. Objective - Vital Signs Vital signs: Vital Signs Temp 99.2 F 01/23/18 08:00 Pulse 93 01/23/18 10:00 Resp 34 H 01/23/18 10:00 BP 155/65 01/23/18 10:00 Pulse Ox 86 L 01/23/18 10:00 Intake & Output 01/22/18 01/23/18 01/23/18 18:59 06:59 18:59 Intake Total 20 40 Output Total 2 1475 Balance 20 -2 1435 Weight 101.2 kg Intake: IV 40 0.9 NACL 40 Intake, IV Titration 20 Amount Diltiazem 50 mg In Sodium 20 Chloride 0.9% 40 ml @ 5 MG/HR 5 mls/hr IV .Q10H [facility] Rx#:[id number] Output: Urine 2 1475 Other: Voiding Method Toilet Toilet Indwelling Catheter # Voids 3 300 - Exam Patient has very lethargic and somnolent. BiPAP mask in place. HEENT examination is grossly unremarkable. Mucous membranes are moist. Neck supple. Full range of motion. No adenopathy thyromegaly or neck vein distention. Cardiovascular examination reveals regular rhythm rate. S1-S2 normal. No S3 or S4. No discernible murmur noted. Lungs reveal coarse rhonchi. A few scattered crackles. Breath sounds are diminished.. Abdomen soft bowel sounds are heard. No masses or tenderness. Extremities are intact. No cyanosis clubbing or edema. Skin is without rash or lesion. Neurologic examination could not be assessed. - Labs CBC & Chem 7: 01/23/18 06:21 01/23/18 07:23 Labs: Abnormal Lab Results - Last 24 Hours (Table) 01/21/18 01/22/18 01/22/18 Range/Units 12:48 11:37 16:55 WBC (3.8-10.6) k/uL RBC (3.80-5.40) m/uL Hgb (11.4-16.0) gm/dL Hct (34.0-46.0) % MCHC (31.0-37.0) g/dL Neutrophils # (1.3-7.7) k/uL ABG pH (7.35-7.45) ABG pCO2 (35-45) mmHg ABG pO2 (83-108) mmHg ABG HCO3 (21-25) mmol/L ABG Total CO2 (19-24) mmol/L ABG O2 Saturation (94-97) % Potassium (3.5-5.1) mmol/L Chloride (98-107) mmol/L Carbon Dioxide (22-30) mmol/L BUN (7-17) mg/dL Creatinine (0.52-1.04) mg/dL Glucose (74-99) mg/dL POC Glucose (mg/dL) 278 H 220 H (75-99) mg/dL Hemoglobin A1c 7.7 H (4.0-6.0) % Plasma Lactic Acid Colby (0.7-2.0) mmol/L Phosphorus (2.5-4.5) mg/dL Albumin (3.5-5.0) g/dL Urine Protein (Negative) Urine Glucose (UA) (Negative) Amorphous Sediment (None) /hpf Urine Bacteria (None) /hpf Hyaline Casts (0-2) /lpf Urine Mucus (None) /hpf 01/22/18 01/23/18 01/23/18 Range/Units 21:15 06:07 06:21 WBC 13.7 H (3.8-10.6) k/uL RBC 3.37 L (3.80-5.40) m/uL Hgb 9.0 L (11.4-16.0) gm/dL Hct 29.8 L (34.0-46.0) % MCHC 30.2 L (31.0-37.0) g/dL Neutrophils # 9.5 H (1.3-7.7) k/uL ABG pH (7.35-7.45) ABG pCO2 (35-45) mmHg ABG pO2 (83-108) mmHg ABG HCO3 (21-25) mmol/L ABG Total CO2 (19-24) mmol/L ABG O2 Saturation (94-97) % Potassium (3.5-5.1) mmol/L Chloride (98-107) mmol/L Carbon Dioxide (22-30) mmol/L BUN (7-17) mg/dL Creatinine (0.52-1.04) mg/dL Glucose (74-99) mg/dL POC Glucose (mg/dL) 243 H 247 H (75-99) mg/dL Hemoglobin A1c (4.0-6.0) % Plasma Lactic Acid Colby (0.7-2.0) mmol/L Phosphorus (2.5-4.5) mg/dL Albumin (3.5-5.0) g/dL Urine Protein (Negative) Urine Glucose (UA) (Negative) Amorphous Sediment (None) /hpf Urine Bacteria (None) /hpf Hyaline Casts (0-2) /lpf Urine Mucus (None) /hpf 01/23/18 01/23/18 01/23/18 Range/Units 06:21 07:11 07:12 WBC (3.8-10.6) k/uL RBC (3.80-5.40) m/uL Hgb (11.4-16.0) gm/dL Hct (34.0-46.0) % MCHC (31.0-37.0) g/dL Neutrophils # (1.3-7.7) k/uL ABG pH 7.19 L* (7.35-7.45) ABG pCO2 98 H* (35-45) mmHg ABG pO2 66 L (83-108) mmHg ABG HCO3 38 H (21-25) mmol/L ABG Total CO2 41 H (19-24) mmol/L ABG O2 Saturation 87.2 L (94-97) % Potassium (3.5-5.1) mmol/L Chloride 93 L (98-107) mmol/L Carbon Dioxide 39 H (22-30) mmol/L BUN 38 H (7-17) mg/dL Creatinine 1.10 H (0.52-1.04) mg/dL Glucose 175 H (74-99) mg/dL POC Glucose (mg/dL) 205 H (75-99) mg/dL Hemoglobin A1c (4.0-6.0) % Plasma Lactic Acid Colby (0.7-2.0) mmol/L Phosphorus (2.5-4.5) mg/dL Albumin 3.3 L (3.5-5.0) g/dL Urine Protein (Negative) Urine Glucose (UA) (Negative) Amorphous Sediment (None) /hpf Urine Bacteria (None) /hpf Hyaline Casts (0-2) /lpf Urine Mucus (None) /hpf 01/23/18 01/23/18 01/23/18 Range/Units 07:23 07:23 07:23 WBC (3.8-10.6) k/uL RBC (3.80-5.40) m/uL Hgb (11.4-16.0) gm/dL Hct (34.0-46.0) % MCHC (31.0-37.0) g/dL Neutrophils # (1.3-7.7) k/uL ABG pH (7.35-7.45) ABG pCO2 (35-45) mmHg ABG pO2 (83-108) mmHg ABG HCO3 (21-25) mmol/L ABG Total CO2 (19-24) mmol/L ABG O2 Saturation (94-97) % Potassium 5.3 H (3.5-5.1) mmol/L Chloride 93 L (98-107) mmol/L Carbon Dioxide 35 H (22-30) mmol/L BUN 37 H (7-17) mg/dL Creatinine 1.16 H (0.52-1.04) mg/dL Glucose 207 H (74-99) mg/dL POC Glucose (mg/dL) (75-99) mg/dL Hemoglobin A1c (4.0-6.0) % Plasma Lactic Acid Colby <0.5 L (0.7-2.0) mmol/L Phosphorus 5.8 H (2.5-4.5) mg/dL Albumin (3.5-5.0) g/dL Urine Protein 2+ H (Negative) Urine Glucose (UA) Trace H (Negative) Amorphous Sediment Occasional H (None) /hpf Urine Bacteria Rare H (None) /hpf Hyaline Casts 3 H (0-2) /lpf Urine Mucus Rare H (None) /hpf 01/23/18 Range/Units 08:33 WBC (3.8-10.6) k/uL RBC (3.80-5.40) m/uL Hgb (11.4-16.0) gm/dL Hct (34.0-46.0) % MCHC (31.0-37.0) g/dL Neutrophils # (1.3-7.7) k/uL ABG pH 7.26 L (7.35-7.45) ABG pCO2 84 H* (35-45) mmHg ABG pO2 (83-108) mmHg ABG HCO3 38 H (21-25) mmol/L ABG Total CO2 40 H (19-24) mmol/L ABG O2 Saturation (94-97) % Potassium (3.5-5.1) mmol/L Chloride (98-107) mmol/L Carbon Dioxide (22-30) mmol/L BUN (7-17) mg/dL Creatinine (0.52-1.04) mg/dL Glucose (74-99) mg/dL POC Glucose (mg/dL) (75-99) mg/dL Hemoglobin A1c (4.0-6.0) % Plasma Lactic Acid Colby (0.7-2.0) mmol/L Phosphorus (2.5-4.5) mg/dL Albumin (3.5-5.0) g/dL Urine Protein (Negative) Urine Glucose (UA) (Negative) Amorphous Sediment (None) /hpf Urine Bacteria (None) /hpf Hyaline Casts (0-2) /lpf Urine Mucus (None) /hpf Microbiology - Last 24 Hours (Table) 01/21/18 12:48 Blood Culture - Preliminary Blood No Growth after 24 hours Assessment and Plan Assessment: Assessment Hypoxemic respiratory failure, multifactorial, in part related to underlying acute worsening of diastolic heart failure, COPD exacerbation, and atrial fibrillation with rapid ventricular response. Acute hypercapnic respiratory failure, likely secondary to increased oxygen administration by nursing and respiratory therapy individuals early this morning. Acute exacerbation of diastolic heart failure COPD, severe, with an FEV1 that is 34% of predicted History of non-small cell lung cancer, with previous left lower lobectomy, 2004. Computed tomography scan showing evidence of right lower lobe mass, abutting the pleural surface, strongly suspicious for bronchogenic carcinoma CAD with previous stent placement History of atrial fibrillation/RVR Pulmonary hypertension Diabetes mellitus Hyperlipidemia Hypertension Remote history of meningitis Plan: Plan dated 01/23/2018 The patient apparently placed on BiPAP. Settings included an IPAP of 10 and EPAP of 5 and we've titrated the oxygen down to 50%. She remains on a saline IV at 20 mL an hour. Cardiology gave her Lopressor which is brought her heart rate and blood pressure down. She is in atrial fibrillation. Most recent blood gases have been reviewed. Repeat arterial blood gases BUN and about an hour. Medications labs and x-rays are all reviewed. Chest x-ray shows possible aspiration. I may broaden the antibiotics. Additional recommendations and suggestions are forthcoming. Prognosis is poor. Critical care time 37 minutes Time with Patient: Greater than 30
[2018-01-23] MEDS: SPIRONOLACTONE 25 MG TAB PO SCH (11:18)
[2018-01-23 11:47] LABS: ABG Base Excess 12.2 mmol/L; ABG HCO3 39 mmol/L (21-25); ABG Oxygen Saturation 89.5 % (94-97); ABG PO2 62 mmHg (83-108); ABG TCO2 41 mmol/L (19-24)
[2018-01-23 11:51] LABS: ABG PCO2 78 mmHg (35-45)
[2018-01-23] MEDS: HEPARIN SOD,PORK IN 0.45% NACL 25,000 UNIT in 0.45% NACL 1 500ML.BAG IV SCH ×2 (12:07→12:56)
[2018-01-23] MEDS: HEPARIN SODIUM,PORCINE 5,000 UNIT/ML 1 ML VIAL IV ONE ×2 (12:07→12:55)
[2018-01-23 12:19] LABS: Glucose,Whole Blood 210 mg/dL (75-99)
[2018-01-23 12:33] LABS: INR 1.1 (<1.2); Partial Thromboplastin Time 22.2 sec (22.0-30.0); Prothrombin Time 10.4 sec (9.0-12.0)
--- NOTE | 2018-01-23 13:27 | P.PN ---
Subjective Patient was transferred to the ICU last night. Her overall condition was declining. She is having more difficulty breathing and arterial blood gas showed acute hypercapnic respiratory failure. She is currently on BiPAP. She is arousable. Her grandson at bedside. Objective - Vital Signs Vital signs: Vital Signs Temp 99.2 F 01/23/18 08:00 Pulse 100 01/23/18 12:15 Resp 24 01/23/18 11:00 BP 143/59 01/23/18 11:00 Pulse Ox 89 L 01/23/18 11:00 Intake & Output 01/22/18 01/23/18 01/23/18 18:59 06:59 18:59 Intake Total 20 120 Output Total 2 1675 Balance 20 -2 -1555 Weight 101.2 kg Intake: IV 120 0.9 NACL 120 Intake, IV Titration 20 Amount Diltiazem 50 mg In Sodium 20 Chloride 0.9% 40 ml @ 5 MG/HR 5 mls/hr IV .Q10H [facility] Rx#:[id number] Output: Urine 2 1675 Other: Voiding Method Toilet Toilet Indwelling Catheter # Voids 3 300 - Exam General: The patient is on BiPAP and appeared lethargic Eye: there is normal conjunctiva bilaterally. Neck: The neck is supple, there is no JVD. Cardiovascular: Normal S1-S2, no S3-S4, no murmurs. Respiratory: Lungs with mild end expiratory wheezing Gastrointestinal: Abdomen is soft, nontender Musculoskeletal: There is no pedal edema. Neurological:. Speech is normal. Skin: Skin is warm and dry - Labs CBC & Chem 7: 01/23/18 06:21 01/23/18 07:23 Labs: Abnormal Lab Results - Last 24 Hours (Table) 01/21/18 01/22/18 01/22/18 Range/Units 12:48 16:55 21:15 WBC (3.8-10.6) k/uL RBC (3.80-5.40) m/uL Hgb (11.4-16.0) gm/dL Hct (34.0-46.0) % MCHC (31.0-37.0) g/dL Neutrophils # (1.3-7.7) k/uL ABG pH (7.35-7.45) ABG pCO2 (35-45) mmHg ABG pO2 (83-108) mmHg ABG HCO3 (21-25) mmol/L ABG Total CO2 (19-24) mmol/L ABG O2 Saturation (94-97) % Potassium (3.5-5.1) mmol/L Chloride (98-107) mmol/L Carbon Dioxide (22-30) mmol/L BUN (7-17) mg/dL Creatinine (0.52-1.04) mg/dL Glucose (74-99) mg/dL POC Glucose (mg/dL) 220 H 243 H (75-99) mg/dL Hemoglobin A1c 7.7 H (4.0-6.0) % Plasma Lactic Acid Colby (0.7-2.0) mmol/L Phosphorus (2.5-4.5) mg/dL Albumin (3.5-5.0) g/dL Urine Protein (Negative) Urine Glucose (UA) (Negative) Amorphous Sediment (None) /hpf Urine Bacteria (None) /hpf Hyaline Casts (0-2) /lpf Urine Mucus (None) /hpf 01/23/18 01/23/18 01/23/18 Range/Units 06:07 06:21 06:21 WBC 13.7 H (3.8-10.6) k/uL RBC 3.37 L (3.80-5.40) m/uL Hgb 9.0 L (11.4-16.0) gm/dL Hct 29.8 L (34.0-46.0) % MCHC 30.2 L (31.0-37.0) g/dL Neutrophils # 9.5 H (1.3-7.7) k/uL ABG pH (7.35-7.45) ABG pCO2 (35-45) mmHg ABG pO2 (83-108) mmHg ABG HCO3 (21-25) mmol/L ABG Total CO2 (19-24) mmol/L ABG O2 Saturation (94-97) % Potassium (3.5-5.1) mmol/L Chloride 93 L (98-107) mmol/L Carbon Dioxide 39 H (22-30) mmol/L BUN 38 H (7-17) mg/dL Creatinine 1.10 H (0.52-1.04) mg/dL Glucose 175 H (74-99) mg/dL POC Glucose (mg/dL) 247 H (75-99) mg/dL Hemoglobin A1c (4.0-6.0) % Plasma Lactic Acid Colby (0.7-2.0) mmol/L Phosphorus (2.5-4.5) mg/dL Albumin 3.3 L (3.5-5.0) g/dL Urine Protein (Negative) Urine Glucose (UA) (Negative) Amorphous Sediment (None) /hpf Urine Bacteria (None) /hpf Hyaline Casts (0-2) /lpf Urine Mucus (None) /hpf 01/23/18 01/23/18 01/23/18 Range/Units 07:11 07:12 07:23 WBC (3.8-10.6) k/uL RBC (3.80-5.40) m/uL Hgb (11.4-16.0) gm/dL Hct (34.0-46.0) % MCHC (31.0-37.0) g/dL Neutrophils # (1.3-7.7) k/uL ABG pH 7.19 L* (7.35-7.45) ABG pCO2 98 H* (35-45) mmHg ABG pO2 66 L (83-108) mmHg ABG HCO3 38 H (21-25) mmol/L ABG Total CO2 41 H (19-24) mmol/L ABG O2 Saturation 87.2 L (94-97) % Potassium (3.5-5.1) mmol/L Chloride (98-107) mmol/L Carbon Dioxide (22-30) mmol/L BUN (7-17) mg/dL Creatinine (0.52-1.04) mg/dL Glucose (74-99) mg/dL POC Glucose (mg/dL) 205 H (75-99) mg/dL Hemoglobin A1c (4.0-6.0) % Plasma Lactic Acid Colby <0.5 L (0.7-2.0) mmol/L Phosphorus (2.5-4.5) mg/dL Albumin (3.5-5.0) g/dL Urine Protein (Negative) Urine Glucose (UA) (Negative) Amorphous Sediment (None) /hpf Urine Bacteria (None) /hpf Hyaline Casts (0-2) /lpf Urine Mucus (None) /hpf 04/15/18 04/15/18 04/15/18 Range/Units 07:23 07:23 08:33 WBC (3.8-10.6) k/uL RBC (3.80-5.40) m/uL Hgb (11.4-16.0) gm/dL Hct (34.0-46.0) % MCHC (31.0-37.0) g/dL Neutrophils # (1.3-7.7) k/uL ABG pH 7.26 L (7.35-7.45) ABG pCO2 84 H* (35-45) mmHg ABG pO2 (83-108) mmHg ABG HCO3 38 H (21-25) mmol/L ABG Total CO2 40 H (19-24) mmol/L ABG O2 Saturation (94-97) % Potassium 5.3 H (3.5-5.1) mmol/L Chloride 93 L (98-107) mmol/L Carbon Dioxide 35 H (22-30) mmol/L BUN 37 H (7-17) mg/dL Creatinine 1.16 H (0.52-1.04) mg/dL Glucose 207 H (74-99) mg/dL POC Glucose (mg/dL) (75-99) mg/dL Hemoglobin A1c (4.0-6.0) % Plasma Lactic Acid Colby (0.7-2.0) mmol/L Phosphorus 5.8 H (2.5-4.5) mg/dL Albumin (3.5-5.0) g/dL Urine Protein 2+ H (Negative) Urine Glucose (UA) Trace H (Negative) Amorphous Sediment Occasional H (None) /hpf Urine Bacteria Rare H (None) /hpf Hyaline Casts 3 H (0-2) /lpf Urine Mucus Rare H (None) /hpf 18 01/23/18 Range/Units 11:44 12:17 WBC (3.8-10.6) k/uL RBC (3.80-5.40) m/uL Hgb (11.4-16.0) gm/dL Hct (34.0-46.0) % MCHC (31.0-37.0) g/dL Neutrophils # (1.3-7.7) k/uL ABG pH 7.30 L (7.35-7.45) ABG pCO2 78 H* (35-45) mmHg ABG pO2 62 L (83-108) mmHg ABG HCO3 39 H (21-25) mmol/L ABG Total CO2 41 H (19-24) mmol/L ABG O2 Saturation 89.5 L (94-97) % Potassium (3.5-5.1) mmol/L Chloride (98-107) mmol/L Carbon Dioxide (22-30) mmol/L BUN (7-17) mg/dL Creatinine (0.52-1.04) mg/dL Glucose (74-99) mg/dL POC Glucose (mg/dL) 210 H (75-99) mg/dL Hemoglobin A1c (4.0-6.0) % Plasma Lactic Acid Colby (0.7-2.0) mmol/L Phosphorus (2.5-4.5) mg/dL Albumin (3.5-5.0) g/dL Urine Protein (Negative) Urine Glucose (UA) (Negative) Amorphous Sediment (None) /hpf Urine Bacteria (None) /hpf Hyaline Casts (0-2) /lpf Urine Mucus (None) /hpf Microbiology - Last 24 Hours (Table) 01/21/18 12:48 Blood Culture - Preliminary Blood No Growth after 24 hours Assessment and Plan Assessment: 1. Atrial fibrillation with rapid ventricular response, patient is on anticoagulation with Eliquis. She was started initially on IV Cardizem drip and currently transitioned to oral Cardizem. She was seen and evaluated by cardiology. 2. Underlying COPD with acute exacerbation, hypercapnic respiratory failure, We will continue bronchodilators. Pulmonology following, currently on BiPAP. 3. Acute bacterial bronchitis with questionable pneumonia on chest x-ray, patient was started on IV ceftriaxone and oral azithromycin. Will finish 7 days course of antibiotic. May transitioned to oral antibiotic when improving clinically. 4. History of lung cancer with prior left lobectomy. 5. Essential hypertension, blood pressure not well controlled. Home medication resumed. I'll continue to monitor closely. 6. Type 2 diabetes mellitus, maintained on high dose of insulin at home. Blood glucose within acceptable range. Awaiting A1c. Patient was seen and evaluated by cardiology. Repeat echocardiogram ordered. We will continue current regimen otherwise. If he Can the Morning. - Continue ICU care - Follow up on ABG. 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
[2018-01-23 16:46] LABS: Glucose,Whole Blood 194 mg/dL (75-99)
[2018-01-23] MEDS: PIPERACILLIN-TAZOBACTAM 3.375 GM in DEXTROSE/WATER 1 50ML.BAG IVPB SCH ×2 (16:51→23:16)
[2018-01-23] MEDS: BUDESONIDE 1 MG/2 ML NEBU INHALATION SCH (19:16)
[2018-01-23 19:53] LABS: Glucose,Whole Blood 87 mg/dL (75-99)
[2018-01-23] MEDS: HEPARIN SODIUM,PORCINE 5,000 UNIT/ML 1 ML VIAL IV PRN (20:42)
[2018-01-23] MEDS: FUROSEMIDE 10 MG/ML 4 ML VIAL IV SCH (21:02)
[2018-01-23 23:59] LABS: Glucose,Whole Blood 87 mg/dL (75-99)
[2018-01-24 03:22] LABS: Glucose,Whole Blood 109 mg/dL (75-99)
[2018-01-24] MEDS: INSULIN ASPART 100 UNIT/ML 1 ML 10 ML VIAL SQ SCH ×5 (03:57→20:33)
[2018-01-24] MEDS: HEPARIN SODIUM,PORCINE 5,000 UNIT/ML 1 ML VIAL IV PRN (04:19)
[2018-01-24 04:31] LABS: Albumin 2.8 g/dL (3.5-5.0); Calcium 8.7 mg/dL (8.4-10.2); Phosphorus 3.6 mg/dL (2.5-4.5); Potassium 4.5 mmol/L (3.5-5.1); Total Bilirubin 0.4 mg/dL (0.2-1.3); Total Protein 5.7 g/dL (6.3-8.2)
[2018-01-24 04:32] LABS: Magnesium 1.9 mg/dL (1.6-2.3)
[2018-01-24 04:43] LABS: Basophils % (A) 0 %; Eosinophils # (A) 0.1 k/uL (0-0.7); Eosinophils % (A) 1 %; HGB 8.2 gm/dL (11.4-16.0); Hypochromasia Moderate; Lymphocytes # (A) 1.5 k/uL (1.0-4.8); Lymphocytes % (A) 15 %; MCH 27.2 pg (25.0-35.0); MCHC 31.6 g/dL (31.0-37.0); MCV 86.2 fL (80.0-100.0); Mean Platelet Volume 7.9; Monocytes # (A) 0.6 k/uL (0-1.0); Monocytes % (A) 6 %; Neutrophils # (A) 7.7 k/uL (1.3-7.7); Neutrophils % (A) 77 %; Platelet Count 286 k/uL (150-450); Poikilocytosis Slight; RBC 3.01 m/uL (3.80-5.40); RDW 14.1 % (11.5-15.5)
[2018-01-24] MEDS: METOPROLOL TARTRATE 5 MG/5 ML VIAL IVP SCH (05:00)
[2018-01-24] MEDS ORDERED: Magnesium Replacement Protocol 1 EACH MISC MISCELLANE PRN (07:06)
[2018-01-24] MEDS: BUDESONIDE 1 MG/2 ML NEBU INHALATION SCH ×2 (07:28→19:58)
[2018-01-24] MEDS: IPRATROPIUM-ALBUTEROL 3 ML NEB INHALATION SCH ×4 (07:28→19:58)
--- NOTE | 2018-01-24 07:30 | XR ---
EXAMINATION TYPE: XR chest 1V DATE OF EXAM: 01/24/2018 COMPARISON: Prior chest 01/23/2018 HISTORY: Shortness of breath TECHNIQUE: Single frontal view of the chest is obtained. FINDINGS: There is improvement in aeration within the lungs. No pneumothorax. Retrocardiac density o bscures the left hemidiaphragm. Heart remains enlarged. There are overlying cardiac leads. IMPRESSION: There is some improvement in aeration. Additional follow-up recommended.
[2018-01-24] MEDS: LORATADINE 10 MG TAB PO SCH (08:04)
[2018-01-24] MEDS: DILTIAZEM ORAL 60 MG TAB PO SCH ×3 (08:04→21:07)
[2018-01-24] MEDS: INSULIN DETEMIR 100 UNIT/ML 10 ML VIAL SQ SCH (08:04)
[2018-01-24] MEDS: METOPROLOL SUCCINATE (ER) 50 MG TAB.ER.24H PO SCH ×2 (08:04→10:18)
[2018-01-24] MEDS: LOSARTAN 50 MG TAB PO SCH (08:04)
[2018-01-24] MEDS: APIXABAN 5 MG TAB PO SCH ×3 (08:04→20:33)
[2018-01-24] MEDS: GABAPENTIN 400 MG CAP PO SCH (08:04)
[2018-01-24] MEDS: SODIUM CHLORIDE 0.9% 1,000 ML IV SCH (08:21)
[2018-01-24] MEDS: MAGNESIUM SULFATE-D5W PMX 1 GM in DEXTROSE/WATER 1 100ML.BAG IVPB SCH ×2 (08:21→09:41)
--- NOTE | 2018-01-24 08:22 | PN ---
PROGRESS NOTE Mrs. Tavarez is a 72-year-old female who presented with symptoms of progressive dyspnea. She has a history of chronic persistent atrial fibrillation, history of coronary artery disease and a history of COPD. She had worsening of her pulmonary status yesterday and was transferred to the ICU. She is feeling better today. She is off the BiPAP. Her urine output has been stable. She denies any symptoms of chest discomfort. Her ventricular response remains high at times. She has no episodes of hypotension. She has been n.p.o. earlier and she has been on IV heparin in addition to Lasix 40 mg IV q.12 hours and metoprolol tartrate 5 mg IV q.6 hours. PHYSICAL EXAMINATION: Blood pressure running in the 140s with the heart rate in the one teens. LUNGS: With decreased air exchange bilaterally and no wheezes. HEART: Irregular, irregular. S1, S2. No S3 with systolic murmur. No diastolic murmur. ABDOMEN: Soft and nontender. EXTREMITIES: With trace to 1+ edema with chronic discoloration. LAB DATA: Lab data showed a BUN and creatinine 42 and 1.13, potassium 4.5. Hemoglobin of 8.2. IMPRESSION: 1. Respiratory failure with infiltrate suggestive of a possible pneumonia with probably an element of congestive heart failure. 2. Chronic persistent atrial fibrillation, anticoagulated. Ventricular response is on the rapid side at this point. 3. History of chronic obstructive pulmonary disease. 4. History of lung cancer. 5. Renal failure. 6. Anemia. RECOMMENDATION: From the cardiac standpoint, now that she is able to take p.o., we will switch her to oral Eliquis as well as overall beta kalyan. Continue the IV diuretic for 24 hours. Depending on her heart rate, the Cardizem can be re-initiated and will hold the losartan at this point. Depending on her progress, further recommendation will be made. MMODL / IJN: [id number] /
[2018-01-24] MEDS: PANTOPRAZOLE 40 MG TABLET PO SCH ×2 (08:23→17:08)
[2018-01-24] MEDS: SPIRONOLACTONE 25 MG TAB PO SCH (08:23)
[2018-01-24] MEDS: FUROSEMIDE 10 MG/ML 4 ML VIAL IV SCH ×2 (08:23→20:33)
[2018-01-24] MEDS: PIPERACILLIN-TAZOBACTAM 3.375 GM in DEXTROSE/WATER 1 50ML.BAG IVPB SCH ×3 (09:03→23:12)
[2018-01-24] MEDS ORDERED: ACETAMINOPHEN TAB 500 MG TAB PO PRN (11:24)
--- NOTE | 2018-01-24 11:40 | P.PN ---
Subjective Progress Note Date: 01/24/18 This is a very pleasant 72-year-old female patient with a known history of atrial fibrillation anticoagulated with Eliquis, coronary artery disease with previous stent placement, diastolic congestive heart failure, diabetes mellitus , hyperlipidemia, hypertension, meningitis back in the 1970s. She also has a history of non-small cell lung cancer with previous left lower lobe resection in 2003 and a most recent computed tomography scan revealing a new right lower lobe mass abutting the pleural surface strongly suspicious for bronchogenic carcinoma. She has a history of significant chronic obstructive pulmonary disease she is oxygen dependent. Her last FEV1 value was 34% of predicted. She follows with Dr. Arguello in our office for the same. She presented here to the emergency room again yesterday with complaints of increasing shortness of breath and weakness. Her chest x-ray shows evidence of vascular congestion and pulmonary edema with small effusions. Echocardiogram from July 2017 revealed a preserved left ventricular systolic function with ejection fraction between 55 and 60%. There is moderate to severe pulmonary hypertension with an RVSP of 57 mmHg. note that the patient was in the hospital on 01/05/2018 and she was and and for GI complaints and as part of the workup a CAT scan of the abdomen was done that showed a 2 x 1 cm right lower lobe pleural-based lesion and scattered pulmonary nodules and mediastinal lymphadenopathy very highly suspicious for a second primary lung cancer. She also had a 1.3 cm right paratracheal lymph node another 1.2 cm lymph node in the AP window. She also had pleural calcification of the left lung base consistent with surgical changes. She is oxygen dependent 2 L/m nasal cannula. I noted this abnormalities. I spoke to her and I told her that she will need outpatient follow-up with a PET scan and further biopsies if needed. She usually follows up with Dr. Arguello The patient was readmitted to the hospital and yesterday she got moved to the intensive care unit because of worsening shortness of breath. The patient also had A. fib/RVR. The patient also had diminished level of consciousness and this was attributed to CO2 narcosis knowing that her blood gases showed a pH of 7.19 with a pCO2 of 98 and pO2 of 66. The patient came to the ICU which was placed on BiPAP throughout the night. Follow blood gases showed improvement and acid base status and current pH is up to 7.3 with a pCO2 of 78 and pO2 of 62 on an FiO2 of 50% with a BiPAP setting of 13/5 cm of water. FiO2 has been further weaning down to 35%. The patient is currently on DuoNeb nebulized treatments around the clock, Pulmicort Respules, IV Lasix 40 mg every 12 hours, IV Zosyn as an empiric antibiotic coverage. Net fluid balance is 2.2 L negative as the patient got diabetes yesterday with IV Lasix. I reviewed the chest x-ray from yesterday and the patient had extensive omental infiltration of the right lung and some at the left. This was consistent with acute pulmonary edema. The patient subsequent chest x-ray from today shows improvement of the examination of the right lung. Clinically she is also improved with diuretics and the patient is at least 2 L negative with IV Lasix. Objective - Vital Signs Vital signs: Vital Signs Temp 98.9 F 01/24/18 08:00 Pulse 113 H 01/24/18 11:16 Resp 18 01/24/18 11:00 BP 154/68 01/24/18 11:00 Pulse Ox 89 L 01/24/18 11:00 Intake & Output 01/23/18 01/24/18 01/24/18 18:59 06:59 18:59 Intake Total 370 664.181 475.819 Output Total 1855 1440 400 Balance -1485 -775.819 75.819 Weight 102.2 kg Intake: IV 370 310 330 0.9 NACL 220 260 80 ACETAMINOPHEN IV (For NPO 100 ) 1,000 mg In Empty Bag 1 bag @ 400 mls/hr IVPB ONCE ONE Rx#:[id number] Magnesium Sulfate-D5w Pmx 200 1 gm In Dextrose/Water 1 100ml.bag @ 100 mls/hr IVPB Q1H [facility] Rx#: [id number] Piperacillin-Tazobactam 3 50 50 50 .375 gm In Dextrose/Water 1 50ml.bag @ 12.5 mls/hr IVPB Q8HR [facility] Rx#: [id number] Intake, IV Titration 354.181 145.819 Amount Heparin Sod,Pork in 0.45% 354.181 145.819 NaCl 25,000 unit In 0.45 % NaCl 1 500ml.bag @ 9.88 UNITS/KG/HR 19.99 mls/hr IV .Q24H [facility] Rx#: [id number] Output: Urine 7083 1440 400 Other: Voiding Method Indwelling Catheter Indwelling Catheter Indwelling Catheter - Exam Physical exam revealed a 72-year-old female in mild degree of respiratory distress even while on the BiPAP. The patient's very synchronous with the BiPAP machine and the patient is currently on a BiPAP setting of 13/5 with an FiO2 of 35%. She is able to tolerate and she is synchronous. HEENT: Anicteric sclerae, pink and moist conjunctivae. Extraocular movements intact, pupils are reactive to light they are round and equal. External inspection of ears and nose showed normal mucosa. Oral mucosa, soft and hard palate tongue and posterior pharynx are intact. Neck: Supple no neck masses, no JVD, no thyroid enlargement, no adenopathy. Lungs: Symmetrical expansion, Diminished breath sounds at the bases no rhonchi or wheezes CVS: Irregular rate and rhythm, normal S1 and S2, no gallops, no murmur, no rubs. Abdomen: Soft, nontender, no megaly, no rebound, no guarding, positive bowel sounds. Extremities: No clubbing, no edema, no cyanosis, 2+ pulses in upper and lower extremities. Musculoskeletal: Muscle strength and tone normal. Neurologic: Alert and oriented 1, mental status is improved compared to yesterday however the patient remains quite confused and alert only to person - Labs CBC & Chem 7: 01/24/18 03:17 01/24/18 03:17 Labs: Abnormal Lab Results - Last 24 Hours (Table) 01/23/18 01/23/18 01/23/18 Range/Units 11:44 12:17 16:44 RBC (3.80-5.40) m/uL Hgb (11.4-16.0) gm/dL Hct (34.0-46.0) % APTT (22.0-30.0) sec ABG pH 7.30 L (7.35-7.45) ABG pCO2 78 H* (35-45) mmHg ABG pO2 62 L (83-108) mmHg ABG HCO3 39 H (21-25) mmol/L ABG Total CO2 41 H (19-24) mmol/L ABG O2 Saturation 89.5 L (94-97) % Chloride (98-107) mmol/L Carbon Dioxide (22-30) mmol/L BUN (7-17) mg/dL Creatinine (0.52-1.04) mg/dL Glucose (74-99) mg/dL POC Glucose (mg/dL) 210 H 194 H (75-99) mg/dL Total Protein (6.3-8.2) g/dL Albumin (3.5-5.0) g/dL 01/24/18 01/24/18 01/24/18 Range/Units 03:17 03:17 03:17 RBC 3.01 L (3.80-5.40) m/uL Hgb 8.2 L (11.4-16.0) gm/dL Hct 26.0 L (34.0-46.0) % APTT 30.7 H (22.0-30.0) sec ABG pH (7.35-7.45) ABG pCO2 (35-45) mmHg ABG pO2 (83-108) mmHg ABG HCO3 (21-25) mmol/L ABG Total CO2 (19-24) mmol/L ABG O2 Saturation (94-97) % Chloride 94 L (98-107) mmol/L Carbon Dioxide 39 H (22-30) mmol/L BUN 42 H (7-17) mg/dL Creatinine 1.13 H (0.52-1.04) mg/dL Glucose 103 H (74-99) mg/dL POC Glucose (mg/dL) (75-99) mg/dL Total Protein 5.7 L (6.3-8.2) g/dL Albumin 2.8 L (3.5-5.0) g/dL 01/24/18 Range/Units 03:21 RBC (3.80-5.40) m/uL Hgb (11.4-16.0) gm/dL Hct (34.0-46.0) % APTT (22.0-30.0) sec ABG pH (7.35-7.45) ABG pCO2 (35-45) mmHg ABG pO2 (83-108) mmHg ABG HCO3 (21-25) mmol/L ABG Total CO2 (19-24) mmol/L ABG O2 Saturation (94-97) % Chloride (98-107) mmol/L Carbon Dioxide (22-30) mmol/L BUN (7-17) mg/dL Creatinine (0.52-1.04) mg/dL Glucose (74-99) mg/dL POC Glucose (mg/dL) 109 H (75-99) mg/dL Total Protein (6.3-8.2) g/dL Albumin (3.5-5.0) g/dL Microbiology - Last 24 Hours (Table) 01/23/18 07:23 Urine Culture - Preliminary Urine,Catheterized 01/21/18 12:48 Blood Culture - Preliminary Blood No Growth after 48 hours Assessment and Plan Plan: Assessment 1 acute on top of chronic hypoxic and hypercapnic respiratory failure, with development of diffuse bilateral pulmonary infiltrates/consolidation right more than left. Possible pulmonary edema specially the patient responded nicely to diuretics. Superimposed pneumonia cannot be completely excluded. Today's chest x-ray shows improvement in aeration of the right lung and the patient is much more comfortable and there is improvement in the acid base status and subsequent blood gases. 2 altered mental status, likely secondary to CO2 narcosis 3 right lower lobe pulmonary nodule measuring 2 x 1 cm in size in addition to suspicious mediastinal lymphadenopathy. Findings are quite suspicious for lung cancer that needs to be further investigated 4 previous history of left lower lobe resection back in the year 2003 non-small cell lung cancer 5 chronic pleural calcification on the left lower lobe related to lobectomy 6 COPD severe with an FEV1 of 36% of predicted at baseline 7 chronic hypoxic respiratory failure maintained on oxygen 4 L/m nasal cannula 8 CHF with diastolic dysfunction 9 coronary artery disease 10 chronic atrial fibrillation maintained on long-term anticoagulation Plan This patient is nicely responding to diuretics. We'll continue the IV Lasix. Will add oral Cardizem minutes she continues to be tachycardic in terms of her atrial fibrillation. Continued IV Zosyn. Chest x-rays improving. We'll try to get her off the BiPAP at a later stage today. We'll continue to follow and she'll be obviously kept in ICU for today. Blood gases are also improving.
--- NOTE | 2018-01-24 12:10 | P.PN ---
Subjective Progress Note Date: 01/24/18 This is a 72-year-old female with past medical history noted below significant for severe COPD and paroxysmal atrial fibrillation who presented to the hospital with worsening shortness of breath. Patient said that his symptoms started 2 days ago and is being getting progressively worse. Her shortness of breath is mostly exertional. She describes a nonproductive cough that is being ongoing for several days as well. There is no recent sick contact. No fevers or chills. No chest pain. Patient was evaluated in the emergency room and was found to be in atrial fibrillation with rapid ventricular response and heart rate up to 132. Patient underwent a chest x-ray showing evidence of bilateral pulmonary edema with suspected underlying pneumonia. Patient was started on a Cardizem drip and was given one-time dose of IV Lasix. She is also on antibiotic. She was noted to have some wheezing in the emergency room that resolved today. 01/24/2018 patient was transferred over to the ICU over the weekend due to worsening shortness of breath and hypoxic respiratory failure. She's currently on BiPAP. Still confused. Reports some shortness of breath. Denies any chest pain. She was having atrial fibrillation with rapid ventricular response she is scheduled for metoprolol. Chest x-ray and blood gases are showing improvement. She is on IV Lasix and IV antibiotics. Pulmonary and cardiology are following. Patient also had fever of 101.1 yesterday. She had a temp of 100.9 this morning which is down to 98.5 Objective - Vital Signs Vital signs: Vital Signs Temp 98.9 F 01/24/18 08:00 Pulse 106 H 01/24/18 11:27 Resp 18 01/24/18 11:00 BP 154/68 01/24/18 11:00 Pulse Ox 89 L 01/24/18 11:00 Intake & Output 01/23/18 01/24/18 01/24/18 18:59 06:59 18:59 Intake Total 370 664.181 475.819 Output Total 1855 1440 400 Balance -1485 -775.819 75.819 Weight 102.2 kg Intake: IV 370 310 330 0.9 NACL 220 260 80 ACETAMINOPHEN IV (For NPO 100 ) 1,000 mg In Empty Bag 1 bag @ 400 mls/hr IVPB ONCE ONE Rx#:[id number] Magnesium Sulfate-D5w Pmx 200 1 gm In Dextrose/Water 1 100ml.bag @ 100 mls/hr IVPB Q1H [facility] Rx#: [id number] Piperacillin-Tazobactam 3 50 50 50 .375 gm In Dextrose/Water 1 50ml.bag @ 12.5 mls/hr IVPB Q8HR [facility] Rx#: [id number] Intake, IV Titration 354.181 145.819 Amount Heparin Sod,Pork in 0.45% 354.181 145.819 NaCl 25,000 unit In 0.45 % NaCl 1 500ml.bag @ 9.88 UNITS/KG/HR 19.99 mls/hr IV .Q24H [facility] Rx#: [id number] Output: Urine 1855 1440 400 Other: Voiding Method Indwelling Catheter Indwelling Catheter Indwelling Catheter - Exam Head normocephalic Neck supple Lungs clear to auscultation bilaterally no wheezing or crackles Heart irregular Abdomen is soft nontender nondistended positive bowel sounds no hepatosplenomegaly Extremities no edema Neuro confused. Currently on BiPAP - Labs CBC & Chem 7: 01/24/18 03:17 01/24/18 03:17 Labs: Abnormal Lab Results - Last 24 Hours (Table) 01/23/18 01/23/18 01/24/18 Range/Units 12:17 16:44 03:17 RBC 3.01 L (3.80-5.40) m/uL Hgb 8.2 L (11.4-16.0) gm/dL Hct 26.0 L (34.0-46.0) % APTT (22.0-30.0) sec Chloride (98-107) mmol/L Carbon Dioxide (22-30) mmol/L BUN (7-17) mg/dL Creatinine (0.52-1.04) mg/dL Glucose (74-99) mg/dL POC Glucose (mg/dL) 210 H 194 H (75-99) mg/dL Total Protein (6.3-8.2) g/dL Albumin (3.5-5.0) g/dL 01/24/18 01/24/18 01/24/18 Range/Units 03:17 03:17 03:21 RBC (3.80-5.40) m/uL Hgb (11.4-16.0) gm/dL Hct (34.0-46.0) % APTT 30.7 H (22.0-30.0) sec Chloride 94 L (98-107) mmol/L Carbon Dioxide 39 H (22-30) mmol/L BUN 42 H (7-17) mg/dL Creatinine 1.13 H (0.52-1.04) mg/dL Glucose 103 H (74-99) mg/dL POC Glucose (mg/dL) 109 H (75-99) mg/dL Total Protein 5.7 L (6.3-8.2) g/dL Albumin 2.8 L (3.5-5.0) g/dL Microbiology - Last 24 Hours (Table) 01/23/18 07:23 Urine Culture - Preliminary Urine,Catheterized 01/21/18 12:48 Blood Culture - Preliminary Blood No Growth after 48 hours Assessment and Plan Assessment: 1. Acute on chronic hypoxic and hypercapnic respiratory failure secondary to congestive heart failure, COPD, A. fib with RVR and possible pneumonia. Currently on BiPAP. Pulmonary service following. Chest x-ray showing improvement in aeration 2. Acute COPD exacerbation: Continue nebulizer treatments 3. Acute on chronic diastolic Congestive heart failure exacerbation: Continue IV Lasix 4. Acute tracheobronchitis with possible pneumonia currently on IV Zosyn 5. Atrial fibrillation with rapid ventricular response. History of chronic persistent atrial fibrillation area cardiology restarted Eliquis and metoprolol 6. Essential hypertension 7. Diabetes mellitus type 2 8. History of lung cancer with prior left lobectomy 9. 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 I have reviewed the Physician Music Rehabilitation Therapist's notes and agree with the documented findings and plan of care
[2018-01-24 12:14] LABS: Glucose,Whole Blood 136 mg/dL (75-99)
[2018-01-24 17:02] LABS: Glucose,Whole Blood 201 mg/dL (75-99)
[2018-01-24 18:34] LABS: Iron Saturation 3.36 (12.00-45.00)
[2018-01-24 19:51] LABS: Glucose,Whole Blood 221 mg/dL (75-99)
[2018-01-24] MEDS ORDERED: INSULIN DETEMIR 100 UNIT/ML 10 ML VIAL SQ SCH (21:00)
[2018-01-24 23:55] LABS: Glucose,Whole Blood 237 mg/dL (75-99)
[2018-01-25 04:45] LABS: Basophils % (A) 0 %; Eosinophils # (A) 0.2 k/uL (0-0.7); Eosinophils % (A) 2 %; HCT 27.2 % (34.0-46.0); HGB 8.4 gm/dL (11.4-16.0); Hypochromasia Moderate; Lymphocytes # (A) 1.5 k/uL (1.0-4.8); Lymphocytes % (A) 15 %; MCH 26.3 pg (25.0-35.0); MCHC 30.9 g/dL (31.0-37.0); MCV 85.2 fL (80.0-100.0); Mean Platelet Volume 7.7; Monocytes # (A) 0.6 k/uL (0-1.0); Monocytes % (A) 6 %; Neutrophils # (A) 7.5 k/uL (1.3-7.7); Neutrophils % (A) 75 %; Platelet Count 289 k/uL (150-450); Poikilocytosis Slight; RDW 14.4 % (11.5-15.5)
[2018-01-25 04:55] LABS: Albumin 2.9 g/dL (3.5-5.0); Calcium 8.8 mg/dL (8.4-10.2); Potassium 3.9 mmol/L (3.5-5.1); Total Bilirubin 0.4 mg/dL (0.2-1.3); Total Protein 5.8 g/dL (6.3-8.2)
[2018-01-25] MEDS ORDERED: Potassium Replacement Protocol 1 EACH MISC MISCELLANE PRN (05:13)
[2018-01-25] MEDS ORDERED: POTASSIUM CHLORIDE ER 20 MEQ TAB.ER PO SCH (06:00)
[2018-01-25 07:17] LABS: Glucose,Whole Blood 197 mg/dL (75-99)
[2018-01-25] MEDS: INSULIN ASPART 100 UNIT/ML 1 ML 10 ML VIAL SQ SCH ×4 (07:33→20:57)
[2018-01-25] MEDS: PIPERACILLIN-TAZOBACTAM 3.375 GM in DEXTROSE/WATER 1 50ML.BAG IVPB SCH ×2 (07:34→15:34)
[2018-01-25] MEDS: SODIUM CHLORIDE 0.9% 1,000 ML IV SCH (07:34)
[2018-01-25] MEDS: PANTOPRAZOLE 40 MG TABLET PO SCH ×2 (07:34→17:39)
[2018-01-25] MEDS: METOPROLOL SUCCINATE (ER) 50 MG TAB.ER.24H PO SCH (07:35)
[2018-01-25] MEDS: SPIRONOLACTONE 25 MG TAB PO SCH (07:35)
[2018-01-25] MEDS: FUROSEMIDE 10 MG/ML 4 ML VIAL IV SCH ×2 (07:35→20:57)
[2018-01-25] MEDS: APIXABAN 5 MG TAB PO SCH ×2 (07:35→20:56)
[2018-01-25] MEDS: DILTIAZEM ORAL 60 MG TAB PO SCH ×3 (07:35→21:01)
--- NOTE | 2018-01-25 08:06 | XR ---
EXAMINATION TYPE: XR chest 1V DATE OF EXAM: 01/25/2018 COMPARISON: Prior chest x-ray 01/24/2018 HISTORY: Shortness of breath TECHNIQUE: frontal view of the chest is obtained on 2 images. FINDINGS: The patient is rotated and there are overlying cardiac leads. There is no significant inte rval change as compared to prior exam. IMPRESSION: Similar to previous exam. Correlate for congestive heart failure, pneumonia versus atele ctasis and associated effusion, follow-up recommended.
[2018-01-25] MEDS: BUDESONIDE 1 MG/2 ML NEBU INHALATION SCH ×2 (08:20→19:43)
[2018-01-25] MEDS: IPRATROPIUM-ALBUTEROL 3 ML NEB INHALATION SCH ×4 (08:20→19:43)
--- NOTE | 2018-01-25 09:14 | PN ---
PROGRESS NOTE DATE OF SERVICE: 01/25/2018. HISTORY: Ms. Tavarez is a 72-year-old female who presented with exacerbation of chronic obstructive pulmonary disease. She has history of paroxysmal atrial fibrillation. She had worsening of her breathing and she was on BiPAP. She is feeling much better. She is sitting up in the chair, feeling well. Her breathing is stable. Her heart rate and blood pressure are stable. Her urine output is stable. She denies any chest pain. No dizziness. No palpitations. She continues to be, at this time, on diltiazem 60 mg 3 times a day, Eliquis 5 mg twice a day, Lasix 40 mg IV every 12 hours, insulin, metoprolol succinate 50 mg daily. PHYSICAL EXAMINATION: Blood pressure running in the 140s to 160s with a heart rate in the 80s and 90s. LUNGS: With decreased air exchange. No wheezes. HEART: Irregular regular. S1, S2. No S3. No rub. ABDOMEN: Soft, nontender. EXTREMITIES: No edema. LAB DATA: Revealed BUN and creatinine 31 and 1.9, hemoglobin of 8.4, potassium 3.9. IMPRESSION: 1. Respiratory failure with evidence of possible pneumonia. The element of congestive heart failure cannot be totally excluded. Her chest x-ray continues to show signs of infiltrate. 2. Atrial fibrillation, chronic, persistent, with a controlled ventricular response, anticoagulated. 3. Prior history of chronic obstructive lung disease. 4. History of lung cancer. 5. Anemia. RECOMMENDATIONS: From the cardiac standpoint, we will continue on the intravenous diuretic for another 24 hours. She should be able to be transferred to telemetry floor soon. We will follow her blood pressure and make further adjustment of her medical regimen. Depending on her progress further recommendations will be made. MMODL / IJN: [id number] /
[2018-01-25 12:05] LABS: Glucose,Whole Blood 195 mg/dL (75-99)
--- NOTE | 2018-01-25 14:27 | P.PN ---
Subjective Progress Note Date: 01/25/18 This is a 72-year-old female with past medical history noted below significant for severe COPD and paroxysmal atrial fibrillation who presented to the hospital with worsening shortness of breath. Patient said that his symptoms started 2 days ago and is being getting progressively worse. Her shortness of breath is mostly exertional. She describes a nonproductive cough that is being ongoing for several days as well. There is no recent sick contact. No fevers or chills. No chest pain. Patient was evaluated in the emergency room and was found to be in atrial fibrillation with rapid ventricular response and heart rate up to 132. Patient underwent a chest x-ray showing evidence of bilateral pulmonary edema with suspected underlying pneumonia. Patient was started on a Cardizem drip and was given one-time dose of IV Lasix. She is also on antibiotic. She was noted to have some wheezing in the emergency room that resolved today. 01/24/2018 patient was transferred over to the ICU over the weekend due to worsening shortness of breath and hypoxic respiratory failure. She's currently on BiPAP. Still confused. Reports some shortness of breath. Denies any chest pain. She was having atrial fibrillation with rapid ventricular response she is scheduled for metoprolol. Chest x-ray and blood gases are showing improvement. She is on IV Lasix and IV antibiotics. Pulmonary and cardiology are following. Patient also had fever of 101.1 yesterday. She had a temp of 100.9 this morning which is down to 98.5 01/25/2018 patient currently sitting at bedside chair. She is off of BiPAP. She is on 6 L satting at 91%. Cardiology is recommending that she stays on IV Lasix for another 24 hours. Chest x-ray showing correlate for congestive heart failure, pneumonia versus atelectasis. Patient reports improvement in her cough and shortness of breath. Patient has been having elevated blood sugars. Levemir has been ordered. Objective - Vital Signs Vital signs: Vital Signs Temp 97.2 F L 01/25/18 08:00 Pulse 107 H 01/25/18 09:00 Resp 22 01/25/18 09:00 BP 144/70 01/25/18 09:00 Pulse Ox 91 L 01/25/18 09:00 Intake & Output 01/24/18 01/25/18 01/25/18 18:59 06:59 18:59 Intake Total 1095.819 910.0 320 Output Total 1350 1775 590 Balance -254.181 -865.0 -270 Weight 99.3 kg 99.3 kg Intake: IV 470 190.0 80 0.9 NACL 220 90 30 Magnesium Sulfate-D5w Pmx 200 1 gm In Dextrose/Water 1 100ml.bag @ 100 mls/hr IVPB Q1H [facility] Rx#: [id number] Piperacillin-Tazobactam 3 50 100.0 50 .375 gm In Dextrose/Water 1 50ml.bag @ 12.5 mls/hr IVPB Q8HR [facility] Rx#: [id number] Intake, IV Titration 145.819 Amount Heparin Sod,Pork in 0.45% 145.819 NaCl 25,000 unit In 0.45 % NaCl 1 500ml.bag @ 9.88 UNITS/KG/HR 19.99 mls/hr IV .Q24H [facility] Rx#: [id number] Oral 480 720 240 Output: Urine 1350 1775 590 Other: Voiding Method Indwelling Catheter Indwelling Catheter Indwelling Catheter - Exam Head normocephalic Neck supple Lungs clear to auscultation bilaterally no wheezing or crackles Heart irregular Abdomen is soft nontender nondistended positive bowel sounds no hepatosplenomegaly Extremities no edema Neuro patient is alert and orientated to name and place. Did not know year - Labs CBC & Chem 7: 01/25/18 04:24 01/25/18 04:24 Labs: Abnormal Lab Results - Last 24 Hours (Table) 01/24/18 01/24/18 01/24/18 Range/Units 03:17 12:12 17:01 RBC (3.80-5.40) m/uL Hgb (11.4-16.0) gm/dL Hct (34.0-46.0) % MCHC (31.0-37.0) g/dL Chloride (98-107) mmol/L Carbon Dioxide (22-30) mmol/L BUN (7-17) mg/dL Glucose (74-99) mg/dL POC Glucose (mg/dL) 136 H 201 H (75-99) mg/dL Iron 10 L (50-170) ug/dL Iron Saturation 3.36 L (12.00-45.00) Total Protein (6.3-8.2) g/dL Albumin (3.5-5.0) g/dL 01/24/18 01/24/18 01/25/18 Range/Units 19:50 23:53 04:24 RBC 3.20 L (3.80-5.40) m/uL Hgb 8.4 L (11.4-16.0) gm/dL Hct 27.2 L (34.0-46.0) % MCHC 30.9 L (31.0-37.0) g/dL Chloride (98-107) mmol/L Carbon Dioxide (22-30) mmol/L BUN (7-17) mg/dL Glucose (74-99) mg/dL POC Glucose (mg/dL) 221 H 237 H (75-99) mg/dL Iron (50-170) ug/dL Iron Saturation (12.00-45.00) Total Protein (6.3-8.2) g/dL Albumin (3.5-5.0) g/dL 01/25/18 01/25/18 Range/Units 04:24 07:16 RBC (3.80-5.40) m/uL Hgb (11.4-16.0) gm/dL Hct (34.0-46.0) % MCHC (31.0-37.0) g/dL Chloride 90 L (98-107) mmol/L Carbon Dioxide 36 H (22-30) mmol/L BUN 31 H (7-17) mg/dL Glucose 209 H (74-99) mg/dL POC Glucose (mg/dL) 197 H (75-99) mg/dL Iron (50-170) ug/dL Iron Saturation (12.00-45.00) Total Protein 5.8 L (6.3-8.2) g/dL Albumin 2.9 L (3.5-5.0) g/dL Microbiology - Last 24 Hours (Table) 01/23/18 07:23 Urine Culture - Final Urine,Catheterized 01/21/18 12:48 Blood Culture - Preliminary Blood No Growth after 72 hours Assessment and Plan Assessment: 1. Acute on chronic hypoxic and hypercapnic respiratory failure secondary to congestive heart failure, COPD, A. fib with RVR and possible pneumonia. She is currently off of BiPAP and on 6 L satting at 95% 2. Acute COPD exacerbation: Continue nebulizer treatments 3. Acute on chronic diastolic Congestive heart failure exacerbation: Continue IV Lasix for another 24 hours per cardiology 4. Acute tracheobronchitis with possible pneumonia currently on IV Zosyn 5. Atrial fibrillation with rapid ventricular response. History of chronic persistent atrial fibrillation area cardiology restarted Eliquis and metoprolol 6. Essential hypertension 7. Diabetes mellitus type 2: Elevated blood sugar in the 200s. Lantus 50 units at bedtime has been ordered. Continue sliding scale coverage. 8. History of lung cancer with prior left lobectomy 9. 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 Showing improvement 10. Iron deficiency anemia: Total iron of 10 and iron saturation also low at 3.36. Hemoglobin 8.4. Patient be given a dose of IV iron 11. Acute kidney injury likely related to diuretics. Now resolved. Continue to monitor I performed an examination of the patient and discussed their management with the physician Soaker. I have reviewed the Physician Soaker's notes and agree with the documented findings and plan of care
[2018-01-25] MEDS ORDERED: SODIUM FERRIC GLUCONAT-SUCROSE 125 MG in SODIUM CHLORIDE 0.9% 100 ML IVPB ONE (15:00)
[2018-01-25 17:27] LABS: Glucose,Whole Blood 241 mg/dL (75-99)
--- NOTE | 2018-01-25 18:44 | P.PN ---
Subjective Progress Note Date: 01/25/18 Principal diagnosis: Acute on chronic hypoxic and hypercapnic respiratory failure secondary to diffuse bilateral pulmonary infiltrate/consolidation right greater than left. This is a very pleasant 72-year-old female patient with a known history of atrial fibrillation anticoagulated with Eliquis, coronary artery disease with previous stent placement, diastolic congestive heart failure, diabetes mellitus , hyperlipidemia, hypertension, meningitis back in the 1970s. She also has a history of non-small cell lung cancer with previous left lower lobe resection in 2003 and a most recent computed tomography scan revealing a new right lower lobe mass abutting the pleural surface strongly suspicious for bronchogenic carcinoma. She has a history of significant chronic obstructive pulmonary disease she is oxygen dependent. Her last FEV1 value was 34% of predicted. She follows with Dr. Arguello in our office for the same. She presented here to the emergency room again yesterday with complaints of increasing shortness of breath and weakness. Her chest x-ray shows evidence of vascular congestion and pulmonary edema with small effusions. Echocardiogram from July 2017 revealed a preserved left ventricular systolic function with ejection fraction between 55 and 60%. There is moderate to severe pulmonary hypertension with an RVSP of 57 mmHg. note that the patient was in the hospital on 01/05/2018 and she was and and for GI complaints and as part of the workup a CAT scan of the abdomen was done that showed a 2 x 1 cm right lower lobe pleural-based lesion and scattered pulmonary nodules and mediastinal lymphadenopathy very highly suspicious for a second primary lung cancer. She also had a 1.3 cm right paratracheal lymph node another 1.2 cm lymph node in the AP window. She also had pleural calcification of the left lung base consistent with surgical changes. She is oxygen dependent 2 L/m nasal cannula. I noted this abnormalities. I spoke to her and I told her that she will need outpatient follow-up with a PET scan and further biopsies if needed. She usually follows up with Dr. Arguello The patient was readmitted to the hospital and yesterday she got moved to the intensive care unit because of worsening shortness of breath. The patient also had A. fib/RVR. The patient also had diminished level of consciousness and this was attributed to CO2 narcosis knowing that her blood gases showed a pH of 7.19 with a pCO2 of 98 and pO2 of 66. The patient came to the ICU which was placed on BiPAP throughout the night. Follow blood gases showed improvement and acid base status and current pH is up to 7.3 with a pCO2 of 78 and pO2 of 62 on an FiO2 of 50% with a BiPAP setting of 13/5 cm of water. FiO2 has been further weaning down to 35%. The patient is currently on DuoNeb nebulized treatments around the clock, Pulmicort Respules, IV Lasix 40 mg every 12 hours, IV Zosyn as an empiric antibiotic coverage. Net fluid balance is 2.2 L negative as the patient got diabetes yesterday with IV Lasix. I reviewed the chest x-ray from yesterday and the patient had extensive omental infiltration of the right lung and some at the left. This was consistent with acute pulmonary edema. The patient subsequent chest x-ray from today shows improvement of the examination of the right lung. Clinically she is also improved with diuretics and the patient is at least 2 L negative with IV Lasix. The patient was seen again today 01/25/2018 in follow-up in the intensive care unit. She is currently sitting up in a chair at the bedside. She is awake and alert in no acute distress. She is breathing quite a bit easier today as compared to yesterday. She responded well to diuretics. She remains on Lasix 40 mg every 12 hours. She is currently on 6 L high flow nasal cannula maintaining good O2 saturations in high 90s. Chest x-ray continues to show evidence of fluid volume overload along with continued infiltrates. She remains on Zosyn for now. She remains in atrial fibrillation with fairly controlled ventricular rate currently on Cardizem and metoprolol. Anticoagulated with Eliquis. Objective - Vital Signs Vital signs: Vital Signs Temp 98.4 F 01/25/18 16:00 Pulse 91 01/25/18 17:05 Resp 24 01/25/18 17:00 BP 153/70 01/25/18 17:00 Pulse Ox 98 01/25/18 17:00 Intake & Output 01/24/18 01/25/18 01/25/18 18:59 06:59 18:59 Intake Total 1095.819 910.0 410 Output Total 1350 1775 1465 Balance -254.181 -865.0 -1055 Weight 99.3 kg 99.3 kg Intake: IV 470 190.0 170 0.9 NACL 220 90 120 Magnesium Sulfate-D5w Pmx 200 1 gm In Dextrose/Water 1 100ml.bag @ 100 mls/hr IVPB Q1H [facility] Rx#: [id number] Piperacillin-Tazobactam 3 50 100.0 50 .375 gm In Dextrose/Water 1 50ml.bag @ 12.5 mls/hr IVPB Q8HR [facility] Rx#: [id number] Intake, IV Titration 145.819 Amount Heparin Sod,Pork in 0.45% 145.819 NaCl 25,000 unit In 0.45 % NaCl 1 500ml.bag @ 9.88 UNITS/KG/HR 19.99 mls/hr IV .Q24H [facility] Rx#: [id number] Oral 480 720 240 Output: Urine 1350 1775 1465 Other: Voiding Method Indwelling Catheter Indwelling Catheter Indwelling Catheter - Exam Physical exam revealed a 72-year-old female in mild degree of respiratory distress even while on the BiPAP. The patient's very synchronous with the BiPAP machine and the patient is currently on a BiPAP setting of 13/5 with an FiO2 of 35%. She is able to tolerate and she is synchronous. When off the BiPAP she is maintaining good O2 saturations in the 90s on 6 L high flow nasal cannula. HEENT: Anicteric sclerae, pink and moist conjunctivae. Extraocular movements intact, pupils are reactive to light they are round and equal. External inspection of ears and nose showed normal mucosa. Oral mucosa, soft and hard palate tongue and posterior pharynx are intact. Neck: Supple no neck masses, no JVD, no thyroid enlargement, no adenopathy. Lungs: Symmetrical expansion, Diminished breath sounds at the bases no rhonchi or wheezes CVS: Irregular rate and rhythm, normal S1 and S2, no gallops, no murmur, no rubs. Abdomen: Soft, nontender, no megaly, no rebound, no guarding, positive bowel sounds. Extremities: No clubbing, no edema, no cyanosis, 2+ pulses in upper and lower extremities. Musculoskeletal: Muscle strength and tone normal. Neurologic: Alert and oriented 1, mental status is improved compared to yesterday however the patient remains quite confused and alert only to person - Labs CBC & Chem 7: 01/25/18 04:24 01/25/18 04:24 Labs: Abnormal Lab Results - Last 24 Hours (Table) 0401/24/18 01/24/18 Range/Units 03:17 19:50 23:53 RBC (3.80-5.40) m/uL Hgb (11.4-16.0) gm/dL Hct (34.0-46.0) % MCHC (31.0-37.0) g/dL Chloride (98-107) mmol/L Carbon Dioxide (22-30) mmol/L BUN (7-17) mg/dL Glucose (74-99) mg/dL POC Glucose (mg/dL) 221 H 237 H (75-99) mg/dL Iron 10 L (50-170) ug/dL Iron Saturation 3.36 L (12.00-45.00) Total Protein (6.3-8.2) g/dL Albumin (3.5-5.0) g/dL 01/25/18 01/25/18 01/25/18 Range/Units 04:24 04:24 07:16 RBC 3.20 L (3.80-5.40) m/uL Hgb 8.4 L (11.4-16.0) gm/dL Hct 27.2 L (34.0-46.0) % MCHC 30.9 L (31.0-37.0) g/dL Chloride 90 L (98-107) mmol/L Carbon Dioxide 36 H (22-30) mmol/L BUN 31 H (7-17) mg/dL Glucose 209 H (74-99) mg/dL POC Glucose (mg/dL) 197 H (75-99) mg/dL Iron (50-170) ug/dL Iron Saturation (12.00-45.00) Total Protein 5.8 L (6.3-8.2) g/dL Albumin 2.9 L (3.5-5.0) g/dL 01/25/18 01/25/18 Range/Units 12:03 17:06 RBC (3.80-5.40) m/uL Hgb (11.4-16.0) gm/dL Hct (34.0-46.0) % MCHC (31.0-37.0) g/dL Chloride (98-107) mmol/L Carbon Dioxide (22-30) mmol/L BUN (7-17) mg/dL Glucose (74-99) mg/dL POC Glucose (mg/dL) 195 H 241 H (75-99) mg/dL Iron (50-170) ug/dL Iron Saturation (12.00-45.00) Total Protein (6.3-8.2) g/dL Albumin (3.5-5.0) g/dL Microbiology - Last 24 Hours (Table) 01/21/18 12:48 Blood Culture - Preliminary Blood No Growth after 96 hours 01/23/18 07:23 Urine Culture - Final Urine,Catheterized Assessment and Plan Assessment: Impression: #1 Acute on chronic hypoxic respiratory failure, multifactorial, secondary to acute exacerbation of diastolic congestive heart failure, acute exacerbation of chronic obstructive pulmonary disease, atrial fibrillation with rapid ventricular response, anemia. #2 Acute exacerbation of diastolic congestive heart failure. Previous echocardiogram revealing preserved left ventricular systolic function with ejection fraction 55-60%. #3 Acute exacerbation of chronic obstructive pulmonary disease, oxygen dependent , FEV1 value of 34% of predicted. #4 History of non-small cell lung cancer with previous left lower lobectomy in 2003. #5 Recent computed tomography scan revealing a right lower lobe mass abutting the pleural surface strongly suspicious for bronchogenic carcinoma. Under investigation in the outpatient setting. #6 Coronary artery disease with previous stent placement. #7 Atrial fibrillation with rapid ventricular response. Currently on a Cardizem drip. Anticoagulated with Eliquis. #8 Pulmonary hypertension. #9 Diabetes mellitus. #10 Hyperlipidemia. #11 Hypertension. #12 Remote history of meningitis. Plan: The patient was seen and evaluated by Dr. Alford. Her chest x-ray and labs were reviewed. We'll continue to diurese the patient. Continue with her COPD medications including bronchodilators 4 times a day and when necessary, Symbicort. Antibiotics in the form of Zosyn. She is anticoagulated with Eliquis. Protonix for GI prophylaxis. Follow up with Dr. Arguello in our office regarding the right lower lung mass. We will continue to follow and make further recommendations based on her clinical status. I, the cosigning physician, performed a history & physical examination of the patient. Lungs sounds with crackles in the bilateral posterior bases. Maintaining good O2 saturations in the 90s on 6 L/m high flow per nasal cannula. I discussed the assessment and plan of care with my nurse practitioner , Juany Nielsen. I attest to the above note as dictated by her.
[2018-01-25 20:39] LABS: Glucose,Whole Blood 250 mg/dL (75-99)
[2018-01-25] MEDS: INSULIN DETEMIR 100 UNIT/ML 10 ML VIAL SQ SCH (21:42)
[2018-01-26 03:13] LABS: Glucose,Whole Blood 181 mg/dL (75-99)
[2018-01-26 03:49] LABS: Albumin 2.9 g/dL (3.5-5.0); Calcium 9.2 mg/dL (8.4-10.2); Magnesium 1.9 mg/dL (1.6-2.3); Phosphorus 5.7 mg/dL (2.5-4.5); Potassium 3.5 mmol/L (3.5-5.1); Total Bilirubin 0.3 mg/dL (0.2-1.3); Total Protein 5.8 g/dL (6.3-8.2)
[2018-01-26 04:18] LABS: Basophils % (A) 0 %; Eosinophils # (A) 0.2 k/uL (0-0.7); Eosinophils % (A) 3 %; HCT 27.3 % (34.0-46.0); HGB 8.5 gm/dL (11.4-16.0); Hypochromasia Moderate; Lymphocytes # (A) 1.6 k/uL (1.0-4.8); Lymphocytes % (A) 17 %; MCH 26.5 pg (25.0-35.0); MCV 85.5 fL (80.0-100.0); Mean Platelet Volume 7.6; Monocytes # (A) 0.5 k/uL (0-1.0); Monocytes % (A) 5 %; Neutrophils # (A) 6.7 k/uL (1.3-7.7); Neutrophils % (A) 73 %; Platelet Count 314 k/uL (150-450); Poikilocytosis Slight; RBC 3.19 m/uL (3.80-5.40); RDW 14.7 % (11.5-15.5); WBC 9.2 k/uL (3.8-10.6)
[2018-01-26] MEDS: PIPERACILLIN-TAZOBACTAM 3.375 GM in DEXTROSE/WATER 1 50ML.BAG IVPB SCH ×3 (06:03→17:08)
[2018-01-26] MEDS: MAGNESIUM SULFATE-D5W PMX 1 GM in DEXTROSE/WATER 1 100ML.BAG IVPB SCH ×2 (06:27→07:50)
[2018-01-26 07:32] LABS: Glucose,Whole Blood 135 mg/dL (75-99)
[2018-01-26] MEDS: POTASSIUM CHLORIDE ER 20 MEQ TAB.ER PO SCH ×2 (07:49→08:44)
[2018-01-26] MEDS: PANTOPRAZOLE 40 MG TABLET PO SCH ×2 (07:49→17:07)
[2018-01-26] MEDS: INSULIN ASPART 100 UNIT/ML 1 ML 10 ML VIAL SQ SCH ×4 (07:54→21:21)
[2018-01-26] MEDS: IPRATROPIUM-ALBUTEROL 3 ML NEB INHALATION SCH ×4 (08:15→19:49)
[2018-01-26] MEDS: BUDESONIDE 1 MG/2 ML NEBU INHALATION SCH ×2 (08:15→19:49)
--- NOTE | 2018-01-26 08:17 | XR ---
EXAMINATION TYPE: XR chest 1V DATE OF EXAM: 01/26/2018 COMPARISON: Prior chest x-ray 01/25/2018 HISTORY: Shortness of breath TECHNIQUE: Single frontal view of the chest is obtained. FINDINGS: Patient is rotated and the heart remains enlarged. There is improvement in aeration. No ev ident pneumothorax. Retrocardiac density persists. There are overlying cardiac leads. Interstitium re thais increased. IMPRESSION: Some interval improvement in aeration.
[2018-01-26] MEDS: SODIUM CHLORIDE 0.9% 1,000 ML IV SCH (08:22)
[2018-01-26] MEDS: APIXABAN 5 MG TAB PO SCH ×2 (08:22→20:50)
[2018-01-26] MEDS: METOPROLOL SUCCINATE (ER) 50 MG TAB.ER.24H PO SCH (08:23)
[2018-01-26] MEDS: FUROSEMIDE 10 MG/ML 4 ML VIAL IV SCH ×2 (08:23→20:50)
[2018-01-26] MEDS: SPIRONOLACTONE 25 MG TAB PO SCH (08:23)
[2018-01-26] MEDS: DILTIAZEM ORAL 60 MG TAB PO SCH ×3 (08:23→20:50)
--- NOTE | 2018-01-26 09:42 | PN ---
PROGRESS NOTE Ms. Tavarez is a 72-year-old female with history of severe chronic obstructive lung disease and history of chronic atrial fibrillation, who presented with worsening dyspnea. She is feeling better today. Her breathing is better. She is denying any symptoms of chest pain. Her heart rate and ventricular response is stable. Her blood pressure is stable. She is tolerating oral medication and feeling better overall. She denies any dizziness or palpitation. She continues to be at this time on Eliquis 5 mg twice a day, diltiazem 60 mg 3 times a day, Lasix 40 mg IV q.12 hours, metoprolol succinate 50 mg daily, and spironolactone 25 mg daily. PHYSICAL EXAMINATION: Blood pressure 128/60 with the heart in 90s. LUNGS: With no wheezes or rales with mild decrease in breath sounds. HEART: Irregular, irregular, S1, S2. No S3 with systolic murmur. No diastolic murmur. No rub. ABDOMEN: Soft, nontender, obese. EXTREMITIES: No edema. LAB DATA: Lab data revealed BUN creatinine 25 and 0.9, potassium 3.5, hemoglobin of 8.5. Her chest x-ray shows mild improvement. IMPRESSION: 1. Respiratory failure with a combination of exacerbation of chronic obstructive pulmonary disease, possible pneumonia and fluid overload with congestive heart failure on the basis of diastolic dysfunction. 2. Chronic atrial fibrillation, persistent, anticoagulated. Rate control. 3. Hypertension. RECOMMENDATION: From the cardiac standpoint, we will continue present therapy. I will continue intravenous diuresis for another 24 hours. Follow her renal function and depending on her progress, further recommendation will be made. I would expect she should be able to be transferred to the telemetry floor today. MMODL / IJN: [id number] /
--- NOTE | 2018-01-26 10:29 | P.PN ---
Subjective Progress Note Date: 01/26/18 This is a 72-year-old female with past medical history noted below significant for severe COPD and paroxysmal atrial fibrillation who presented to the hospital with worsening shortness of breath. Patient said that his symptoms started 2 days ago and is being getting progressively worse. Her shortness of breath is mostly exertional. She describes a nonproductive cough that is being ongoing for several days as well. There is no recent sick contact. No fevers or chills. No chest pain. Patient was evaluated in the emergency room and was found to be in atrial fibrillation with rapid ventricular response and heart rate up to 132. Patient underwent a chest x-ray showing evidence of bilateral pulmonary edema with suspected underlying pneumonia. Patient was started on a Cardizem drip and was given one-time dose of IV Lasix. She is also on antibiotic. She was noted to have some wheezing in the emergency room that resolved today. 01/24/2018 patient was transferred over to the ICU over the weekend due to worsening shortness of breath and hypoxic respiratory failure. She's currently on BiPAP. Still confused. Reports some shortness of breath. Denies any chest pain. She was having atrial fibrillation with rapid ventricular response she is scheduled for metoprolol. Chest x-ray and blood gases are showing improvement. She is on IV Lasix and IV antibiotics. Pulmonary and cardiology are following. Patient also had fever of 101.1 yesterday. She had a temp of 100.9 this morning which is down to 98.5 01/25/2018 patient currently sitting at bedside chair. She is off of BiPAP. She is on 6 L satting at 91%. Cardiology is recommending that she stays on IV Lasix for another 24 hours. Chest x-ray showing correlate for congestive heart failure, pneumonia versus atelectasis. Patient reports improvement in her cough and shortness of breath. Patient has been having elevated blood sugars. Levemir has been ordered. On 01/26/2018 patient is alert and oriented 3 she was seen in intensive care unit today she is laying in bed comfortably, she is still having significant cough with minimal sputum production, she has shortness of breath with activity , pulse ox is 94% on high flow 4 L nasal cannula, she denies any chest pain no nausea or vomiting no abdominal pain no diarrhea and no urinary symptoms. Objective - Vital Signs Vital signs: Vital Signs Temp 98 F 01/26/18 08:00 Pulse 108 H 01/26/18 08:34 Resp 24 01/26/18 08:00 BP 128/56 01/26/18 08:00 Pulse Ox 94 L 01/26/18 08:00 Intake & Output 01/25/18 01/26/18 01/26/18 18:59 06:59 18:59 Intake Total 410 830 220 Output Total 1590 1885 1050 Balance -1180 -1055 -830 Weight 99.3 kg 95 kg Intake: IV 170 230 100 0.9 NACL 120 180 100 Piperacillin-Tazobactam 3 50 50 .375 gm In Dextrose/Water 1 50ml.bag @ 12.5 mls/hr IVPB Q8HR [facility] Rx#: [id number] Oral 240 600 120 Output: Urine 1590 1885 1050 Other: Voiding Method Indwelling Catheter Indwelling Catheter Indwelling Catheter - Exam Head normocephalic and atraumatic Neck supple no JVD no goiter Lungs clear to auscultation bilaterally no wheezing or crackles Heart irregular S1 and S2 no gallops no murmurs Abdomen is soft nontender nondistended positive bowel sounds no hepatosplenomegaly Extremities no edema no cyanosis or clubbing Neuro patient is alert and orientated, no gross focal deficit - Labs CBC & Chem 7: 01/26/18 02:50 01/26/18 02:50 Labs: Abnormal Lab Results - Last 24 Hours (Table) 01/25/18 01/25/18 01/25/18 Range/Units 12:03 17:06 20:37 RBC (3.80-5.40) m/uL Hgb (11.4-16.0) gm/dL Hct (34.0-46.0) % Chloride (98-107) mmol/L Carbon Dioxide (22-30) mmol/L BUN (7-17) mg/dL Glucose (74-99) mg/dL POC Glucose (mg/dL) 195 H 241 H 250 H (75-99) mg/dL Phosphorus (2.5-4.5) mg/dL Total Protein (6.3-8.2) g/dL Albumin (3.5-5.0) g/dL 01/26/18 01/26/18 01/26/18 Range/Units 01:28 02:50 02:50 RBC 3.19 L (3.80-5.40) m/uL Hgb 8.5 L (11.4-16.0) gm/dL Hct 27.3 L (34.0-46.0) % Chloride 92 L (98-107) mmol/L Carbon Dioxide 39 H (22-30) mmol/L BUN 25 H (7-17) mg/dL Glucose 144 H (74-99) mg/dL POC Glucose (mg/dL) 181 H (75-99) mg/dL Phosphorus 5.7 H (2.5-4.5) mg/dL Total Protein 5.8 L (6.3-8.2) g/dL Albumin 2.9 L (3.5-5.0) g/dL 01/26/18 Range/Units 07:30 RBC (3.80-5.40) m/uL Hgb (11.4-16.0) gm/dL Hct (34.0-46.0) % Chloride (98-107) mmol/L Carbon Dioxide (22-30) mmol/L BUN (7-17) mg/dL Glucose (74-99) mg/dL POC Glucose (mg/dL) 135 H (75-99) mg/dL Phosphorus (2.5-4.5) mg/dL Total Protein (6.3-8.2) g/dL Albumin (3.5-5.0) g/dL Microbiology - Last 24 Hours (Table) 01/21/18 12:48 Blood Culture - Preliminary Blood No Growth after 96 hours Assessment and Plan Plan: 1. Acute on chronic hypoxic and hypercapnic respiratory failure secondary to congestive heart failure, COPD, A. fib with RVR and possible pneumonia. 2. Acute COPD exacerbation: Continue nebulizer treatments 3. Acute on chronic diastolic Congestive heart failure exacerbation: Continue IV Lasix for another 24 hours per cardiology 4. Acute tracheobronchitis with possible pneumonia currently on IV Zosyn 5. Atrial fibrillation with rapid ventricular response. History of chronic persistent atrial fibrillation area cardiology restarted Eliquis and metoprolol 6. Essential hypertension 7. Diabetes mellitus type 2: Elevated blood sugar in the 200s. Lantus 50 units at bedtime has been ordered. Continue sliding scale coverage. 8. History of lung cancer with prior left lobectomy 9. 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 Showing improvement 10. Iron deficiency anemia: Total iron of 10 and iron saturation also low at 3.36. Hemoglobin 8.4. Patient be given a dose of IV iron 11. Acute kidney injury likely related to diuretics. Now resolved. Continue to monitor. Medication and labs were reviewed patient was examined Continue current management possible transfer out of ICU today
[2018-01-26 11:58] LABS: Glucose,Whole Blood 167 mg/dL (75-99)
[2018-01-26 17:09] LABS: Glucose,Whole Blood 258 mg/dL (75-99)
--- NOTE | 2018-01-26 17:41 | P.PN ---
Subjective Progress Note Date: 01/26/18 This is a very pleasant 72-year-old female patient with a known history of atrial fibrillation anticoagulated with Eliquis, coronary artery disease with previous stent placement, diastolic congestive heart failure, diabetes mellitus , hyperlipidemia, hypertension, meningitis back in the 1970s. She also has a history of non-small cell lung cancer with previous left lower lobe resection in 2003 and a most recent computed tomography scan revealing a new right lower lobe mass abutting the pleural surface strongly suspicious for bronchogenic carcinoma. She has a history of significant chronic obstructive pulmonary disease she is oxygen dependent. Her last FEV1 value was 34% of predicted. She follows with Dr. Arguello in our office for the same. She presented here to the emergency room again yesterday with complaints of increasing shortness of breath and weakness. Her chest x-ray shows evidence of vascular congestion and pulmonary edema with small effusions. Echocardiogram from July 2017 revealed a preserved left ventricular systolic function with ejection fraction between 55 and 60%. There is moderate to severe pulmonary hypertension with an RVSP of 57 mmHg. note that the patient was in the hospital on 01/05/2018 and she was and and for GI complaints and as part of the workup a CAT scan of the abdomen was done that showed a 2 x 1 cm right lower lobe pleural-based lesion and scattered pulmonary nodules and mediastinal lymphadenopathy very highly suspicious for a second primary lung cancer. She also had a 1.3 cm right paratracheal lymph node another 1.2 cm lymph node in the AP window. She also had pleural calcification of the left lung base consistent with surgical changes. She is oxygen dependent 2 L/m nasal cannula. I noted this abnormalities. I spoke to her and I told her that she will need outpatient follow-up with a PET scan and further biopsies if needed. She usually follows up with Dr. Arguello The patient was readmitted to the hospital and yesterday she got moved to the intensive care unit because of worsening shortness of breath. The patient also had A. fib/RVR. The patient also had diminished level of consciousness and this was attributed to CO2 narcosis knowing that her blood gases showed a pH of 7.19 with a pCO2 of 98 and pO2 of 66. The patient came to the ICU which was placed on BiPAP throughout the night. Follow blood gases showed improvement and acid base status and current pH is up to 7.3 with a pCO2 of 78 and pO2 of 62 on an FiO2 of 50% with a BiPAP setting of 13/5 cm of water. FiO2 has been further weaning down to 35%. The patient is currently on DuoNeb nebulized treatments around the clock, Pulmicort Respules, IV Lasix 40 mg every 12 hours, IV Zosyn as an empiric antibiotic coverage. Net fluid balance is 2.2 L negative as the patient got diabetes yesterday with IV Lasix. I reviewed the chest x-ray from yesterday and the patient had extensive omental infiltration of the right lung and some at the left. This was consistent with acute pulmonary edema. The patient subsequent chest x-ray from today shows improvement of the examination of the right lung. Clinically she is also improved with diuretics and the patient is at least 2 L negative with IV Lasix. On 01/26/2018 I'm seeing this patient for a follow-up. The patient is looking much better. She is improved considerably. Chest x-ray from today shows marked improvement in the pulmonary infiltrates in the volume status. Noted the patient has diuresed more than 5-6 L over the past 24 hours. The patient remains on IV Lasix. She has responded nicely to diuretics pH is also on IV Zosyn. Nevertheless, the acute respiratory and hypoxic event was related to fluid overload. The patient also has a remote history of lung cancer with a previous left lower lobe resection. She has a right lung mass and mediastinal lymphadenopathy that is awaiting to be biopsied at a later stage. This was supposed to be done on outpatient basis however I'm considering to do with why she is here to establish final diagnosis. The patient remains nature fibrillation. Rate is controlled at times however at times she goes more tachycardic in the low 100s. She is on metoprolol XL 50 mg by mouth daily and Cardizem 60 mg by mouth 3 times a day. He is also on long-term and to coagulation with Eliquis. Cultures of been all negative. Renal function is stable for now despite aggressive diuresis. Potassium level is being replaced is up to 3.9. Objective - Vital Signs Vital signs: Vital Signs Temp 97.8 F 01/26/18 16:00 Pulse 106 H 01/26/18 16:00 Resp 21 01/26/18 16:00 BP 126/59 01/26/18 16:00 Pulse Ox 90 L 01/26/18 16:00 Intake & Output 01/25/18 01/26/18 01/26/18 18:59 06:59 18:59 Intake Total 410 830 220 Output Total 1590 1885 1605 Balance -1180 -1055 -1385 Weight 99.3 kg 95 kg Intake: IV 170 230 100 0.9 NACL 120 180 100 Piperacillin-Tazobactam 3 50 50 .375 gm In Dextrose/Water 1 50ml.bag @ 12.5 mls/hr IVPB Q8HR [facility] Rx#: [id number] Oral 240 600 120 Output: Urine 1590 1885 1605 Other: Voiding Method Indwelling Catheter Indwelling Catheter Indwelling Catheter - Exam Physical exam revealed a 72-year-old female in mild degree of respiratory distress even while on the BiPAP. The patient's very synchronous with the BiPAP machine and the patient is currently on a BiPAP setting of 13/5 with an FiO2 of 35%. She is able to tolerate and she is synchronous. HEENT: Anicteric sclerae, pink and moist conjunctivae. Extraocular movements intact, pupils are reactive to light they are round and equal. External inspection of ears and nose showed normal mucosa. Oral mucosa, soft and hard palate tongue and posterior pharynx are intact. Neck: Supple no neck masses, no JVD, no thyroid enlargement, no adenopathy. Lungs: Symmetrical expansion, Diminished breath sounds at the bases no rhonchi or wheezes, and the patient has improved aeration and diminished tract lungs bilaterally. Was that showed CVS: Irregular rate and rhythm, normal S1 and S2, no gallops, no murmur, no rubs. Abdomen: Soft, nontender, no megaly, no rebound, no guarding, positive bowel sounds. Extremities: No clubbing, no edema, no cyanosis, 2+ pulses in upper and lower extremities. Musculoskeletal: Muscle strength and tone normal. Neurologic: Alert and oriented 3, mental status is improved compared to yesterday however the patient remains quite confused and alert only to person - Labs CBC & Chem 7: 01/26/18 02:50 01/26/18 11:52 Labs: Abnormal Lab Results - Last 24 Hours (Table) 01/25/18 01/26/18 01/26/18 Range/Units 20:37 01:28 02:50 RBC 3.19 L (3.80-5.40) m/uL Hgb 8.5 L (11.4-16.0) gm/dL Hct 27.3 L (34.0-46.0) % Chloride (98-107) mmol/L Carbon Dioxide (22-30) mmol/L BUN (7-17) mg/dL Glucose (74-99) mg/dL POC Glucose (mg/dL) 250 H 181 H (75-99) mg/dL Phosphorus (2.5-4.5) mg/dL Total Protein (6.3-8.2) g/dL Albumin (3.5-5.0) g/dL 01/26/18 01/26/18 01/26/18 Range/Units 02:50 07:30 11:56 RBC (3.80-5.40) m/uL Hgb (11.4-16.0) gm/dL Hct (34.0-46.0) % Chloride 92 L (98-107) mmol/L Carbon Dioxide 39 H (22-30) mmol/L BUN 25 H (7-17) mg/dL Glucose 144 H (74-99) mg/dL POC Glucose (mg/dL) 135 H 167 H (75-99) mg/dL Phosphorus 5.7 H (2.5-4.5) mg/dL Total Protein 5.8 L (6.3-8.2) g/dL Albumin 2.9 L (3.5-5.0) g/dL 01/26/18 Range/Units 17:01 RBC (3.80-5.40) m/uL Hgb (11.4-16.0) gm/dL Hct (34.0-46.0) % Chloride (98-107) mmol/L Carbon Dioxide (22-30) mmol/L BUN (7-17) mg/dL Glucose (74-99) mg/dL POC Glucose (mg/dL) 258 H (75-99) mg/dL Phosphorus (2.5-4.5) mg/dL Total Protein (6.3-8.2) g/dL Albumin (3.5-5.0) g/dL Microbiology - Last 24 Hours (Table) 01/21/18 12:48 Blood Culture - Preliminary Blood No Growth after 120 hours Assessment and Plan Plan: Assessment 1 acute on top of chronic hypoxic and hypercapnic respiratory failure, with development of diffuse bilateral pulmonary infiltrates/consolidation right more than left. Possible pulmonary edema specially the patient responded nicely to diuretics. Superimposed pneumonia cannot be completely excluded. Today's chest x-ray shows improvement in aeration of the right lung and the patient is much more comfortable and there is improvement in the acid base status and subsequent blood gases. On 01/26/2018 there has been considerable improvement in the patient's volume status and chest x-ray findings. The patient has diuresed more than 6 L. She continue the diuresis IV Lasix. Oxidation is also improved. The patient is less short of breath compared to yesterday. 2 altered mental status, recovered and this was related to CO2 narcosis. The patient's mentation is back to normal. 3 right lower lobe pulmonary nodule measuring 2 x 1 cm in size in addition to suspicious mediastinal lymphadenopathy. Findings are quite suspicious for lung cancer that needs to be further investigated, considering a biopsy during her current hospital stay. 4 previous history of left lower lobe resection back in the year 2003 non-small cell lung cancer 5 chronic pleural calcification on the left lower lobe related to lobectomy 6 COPD severe with an FEV1 of 36% of predicted at baseline 7 chronic hypoxic respiratory failure maintained on oxygen 4 L/m nasal cannula 8 CHF with diastolic dysfunction 9 coronary artery disease 10 chronic atrial fibrillation maintained on long-term anticoagulation Plan We'll continue the IV Lasix. Increase the metoprolol 200 mg daily basis and continue with oral Cardizem. Continue the Eliquis for now. We'll stop the anticoagulation and fully set to proceed with biopsy through bronchoscopy and transbronchial needle aspirate of the mediastinal lymph nodes during this current hospital stay. Otherwise this can be done also on outpatient basis. This will largely depend on the patient's progress and her willingness to undergo the procedure. We'll continue to follow. Keep in ICU for another 24 hours.
[2018-01-26] MEDS: AMOXIC-POT CLAV 875-125MG 1 EACH TAB PO SCH (20:50)
[2018-01-26] MEDS: INSULIN DETEMIR 100 UNIT/ML 10 ML VIAL SQ SCH (21:21)
[2018-01-26 21:22] LABS: Glucose,Whole Blood 251 mg/dL (75-99)
[2018-01-27 04:45] LABS: Basophils % (A) 0 %; Eosinophils # (A) 0.3 k/uL (0-0.7); Eosinophils % (A) 2 %; HCT 28.1 % (34.0-46.0); HGB 8.7 gm/dL (11.4-16.0); Hypochromasia Moderate; Lymphocytes # (A) 2.3 k/uL (1.0-4.8); Lymphocytes % (A) 18 %; MCH 26.3 pg (25.0-35.0); MCV 84.8 fL (80.0-100.0); Mean Platelet Volume 7.8; Monocytes # (A) 0.6 k/uL (0-1.0); Monocytes % (A) 5 %; Neutrophils # (A) 9.2 k/uL (1.3-7.7); Neutrophils % (A) 73 %; Platelet Count 372 k/uL (150-450); Poikilocytosis Slight; RBC 3.31 m/uL (3.80-5.40); RDW 15.4 % (11.5-15.5); WBC 12.6 k/uL (3.8-10.6)
[2018-01-27 04:56] LABS: Albumin 3.3 g/dL (3.5-5.0); Calcium 9.6 mg/dL (8.4-10.2); Total Bilirubin 0.3 mg/dL (0.2-1.3); Total Protein 6.1 g/dL (6.3-8.2)
[2018-01-27] MEDS: PANTOPRAZOLE 40 MG TABLET PO SCH ×2 (06:26→18:17)
[2018-01-27] MEDS: BUDESONIDE 1 MG/2 ML NEBU INHALATION SCH ×2 (07:11→20:05)
[2018-01-27] MEDS: IPRATROPIUM-ALBUTEROL 3 ML NEB INHALATION SCH ×4 (07:11→20:05)
[2018-01-27] MEDS: SODIUM CHLORIDE 0.9% 1,000 ML IV SCH (07:59)
[2018-01-27] MEDS: AMOXIC-POT CLAV 875-125MG 1 EACH TAB PO SCH ×2 (08:00→21:18)
[2018-01-27] MEDS: APIXABAN 5 MG TAB PO SCH (08:00)
[2018-01-27] MEDS: FUROSEMIDE 10 MG/ML 4 ML VIAL IV SCH ×2 (08:00→21:18)
[2018-01-27] MEDS: DILTIAZEM ORAL 60 MG TAB PO SCH ×3 (08:00→22:59)
[2018-01-27] MEDS: DOCUSATE 100 MG CAP PO SCH (08:00)
[2018-01-27] MEDS: SPIRONOLACTONE 25 MG TAB PO SCH (08:01)
[2018-01-27] MEDS: METOPROLOL SUCCINATE (ER) 100 MG TAB.ER.24H PO SCH (08:01)
[2018-01-27] MEDS: INSULIN ASPART 100 UNIT/ML 1 ML 10 ML VIAL SQ SCH ×4 (08:06→21:17)
--- NOTE | 2018-01-27 09:14 | P.PN ---
Subjective Progress Note Date: 01/27/18 This is a very pleasant 72-year-old female patient with a known history of atrial fibrillation anticoagulated with Eliquis, coronary artery disease with previous stent placement, diastolic congestive heart failure, diabetes mellitus , hyperlipidemia, hypertension, meningitis back in the 1970s. She also has a history of non-small cell lung cancer with previous left lower lobe resection in 2003 and a most recent computed tomography scan revealing a new right lower lobe mass abutting the pleural surface strongly suspicious for bronchogenic carcinoma. She has a history of significant chronic obstructive pulmonary disease she is oxygen dependent. Her last FEV1 value was 34% of predicted. She follows with Dr. Arguello in our office for the same. She presented here to the emergency room again yesterday with complaints of increasing shortness of breath and weakness. Her chest x-ray shows evidence of vascular congestion and pulmonary edema with small effusions. Echocardiogram from July 2017 revealed a preserved left ventricular systolic function with ejection fraction between 55 and 60%. There is moderate to severe pulmonary hypertension with an RVSP of 57 mmHg. note that the patient was in the hospital on 01/05/2018 and she was and and for GI complaints and as part of the workup a CAT scan of the abdomen was done that showed a 2 x 1 cm right lower lobe pleural-based lesion and scattered pulmonary nodules and mediastinal lymphadenopathy very highly suspicious for a second primary lung cancer. She also had a 1.3 cm right paratracheal lymph node another 1.2 cm lymph node in the AP window. She also had pleural calcification of the left lung base consistent with surgical changes. She is oxygen dependent 2 L/m nasal cannula. I noted this abnormalities. I spoke to her and I told her that she will need outpatient follow-up with a PET scan and further biopsies if needed. She usually follows up with Dr. Arguello The patient was readmitted to the hospital and yesterday she got moved to the intensive care unit because of worsening shortness of breath. The patient also had A. fib/RVR. The patient also had diminished level of consciousness and this was attributed to CO2 narcosis knowing that her blood gases showed a pH of 7.19 with a pCO2 of 98 and pO2 of 66. The patient came to the ICU which was placed on BiPAP throughout the night. Follow blood gases showed improvement and acid base status and current pH is up to 7.3 with a pCO2 of 78 and pO2 of 62 on an FiO2 of 50% with a BiPAP setting of 13/5 cm of water. FiO2 has been further weaning down to 35%. The patient is currently on DuoNeb nebulized treatments around the clock, Pulmicort Respules, IV Lasix 40 mg every 12 hours, IV Zosyn as an empiric antibiotic coverage. Net fluid balance is 2.2 L negative as the patient got diabetes yesterday with IV Lasix. I reviewed the chest x-ray from yesterday and the patient had extensive omental infiltration of the right lung and some at the left. This was consistent with acute pulmonary edema. The patient subsequent chest x-ray from today shows improvement of the examination of the right lung. Clinically she is also improved with diuretics and the patient is at least 2 L negative with IV Lasix. On 01/26/2018 I'm seeing this patient for a follow-up. The patient is looking much better. She is improved considerably. Chest x-ray from today shows marked improvement in the pulmonary infiltrates in the volume status. Noted the patient has diuresed more than 5-6 L over the past 24 hours. The patient remains on IV Lasix. She has responded nicely to diuretics pH is also on IV Zosyn. Nevertheless, the acute respiratory and hypoxic event was related to fluid overload. The patient also has a remote history of lung cancer with a previous left lower lobe resection. She has a right lung mass and mediastinal lymphadenopathy that is awaiting to be biopsied at a later stage. This was supposed to be done on outpatient basis however I'm considering to do with why she is here to establish final diagnosis. The patient remains nature fibrillation. Rate is controlled at times however at times she goes more tachycardic in the low 100s. She is on metoprolol XL 50 mg by mouth daily and Cardizem 60 mg by mouth 3 times a day. He is also on long-term and to coagulation with Eliquis. Cultures of been all negative. Renal function is stable for now despite aggressive diuresis. Potassium level is being replaced is up to 3.9. On 01/27/2018 I'm seeing this patient for a follow-up. She is doing well. No specific complaints. Resting comfortably on a chair. Still diuresing with IV Lasix. Negative fluid balance an additional 2 L since yesterday. She is also in atrial fibrillation with a controlled rate. We discussed again the possibility of doing a biopsy of the pretracheal lymph nodes. I think it's reasonable as long as the patient is feeling better and she is willing to undergo the procedure. She is currently on 3-4 L of oxygen by nasal cannula which is her baseline. No chest pain. No altered mentation. No cough or sputum production. The electrolytes are all within normal limits. White cell count is not elevated. Renal function status shows a creatinine of 1.0. Objective - Vital Signs Vital signs: Vital Signs Temp 98.1 F 01/27/18 04:00 Pulse 107 H 01/27/18 08:00 Resp 37 H 01/27/18 08:00 BP 140/51 01/27/18 08:00 Pulse Ox 92 L 01/27/18 08:00 Intake & Output 01/26/18 01/27/18 01/27/18 18:59 06:59 18:59 Intake Total 220 290 Output Total 1605 1050 Balance -1385 -1050 290 Weight 95.2 kg Intake: IV 100 50 0.9 NACL 100 Piperacillin-Tazobactam 3 50 .375 gm In Dextrose/Water 1 50ml.bag @ 12.5 mls/hr IVPB Q8HR [facility] Rx#: [id number] Oral 120 240 Output: Urine 1605 1050 Other: Voiding Method Indwelling Catheter Indwelling Catheter Indwelling Catheter - Exam Physical exam revealed a 72-year-old female , calm and comfortable likely distress on 4 L of oxygen by nasal cannula. HEENT: Anicteric sclerae, pink and moist conjunctivae. Extraocular movements intact, pupils are reactive to light they are round and equal. External inspection of ears and nose showed normal mucosa. Oral mucosa, soft and hard palate tongue and posterior pharynx are intact. Neck: Supple no neck masses, no JVD, no thyroid enlargement, no adenopathy. Lungs: Symmetrical expansion, Diminished breath sounds at the bases no rhonchi or wheezes, and the patient has improved aeration and diminished tract lungs bilaterally. Was that showed CVS: Irregular rate and rhythm, normal S1 and S2, no gallops, no murmur, no rubs. Abdomen: Soft, nontender, no megaly, no rebound, no guarding, positive bowel sounds. Extremities: No clubbing, no edema, no cyanosis, 2+ pulses in upper and lower extremities. Musculoskeletal: Muscle strength and tone normal. Neurologic: Alert and oriented 3, mental status is improved compared to yesterday however the patient remains quite confused and alert only to person - Labs CBC & Chem 7: 01/27/18 04:30 01/27/18 04:30 Labs: Abnormal Lab Results - Last 24 Hours (Table) 01/26/18 01/26/18 01/26/18 Range/Units 11:56 17:01 21:20 WBC (3.8-10.6) k/uL RBC (3.80-5.40) m/uL Hgb (11.4-16.0) gm/dL Hct (34.0-46.0) % Neutrophils # (1.3-7.7) k/uL Chloride (98-107) mmol/L Carbon Dioxide (22-30) mmol/L BUN (7-17) mg/dL Glucose (74-99) mg/dL POC Glucose (mg/dL) 167 H 258 H 251 H (75-99) mg/dL Total Protein (6.3-8.2) g/dL Albumin (3.5-5.0) g/dL 01/27/18 01/27/18 Range/Units 04:30 04:30 WBC 12.6 H (3.8-10.6) k/uL RBC 3.31 L (3.80-5.40) m/uL Hgb 8.7 L (11.4-16.0) gm/dL Hct 28.1 L (34.0-46.0) % Neutrophils # 9.2 H (1.3-7.7) k/uL Chloride 92 L (98-107) mmol/L Carbon Dioxide 36 H (22-30) mmol/L BUN 24 H (7-17) mg/dL Glucose 127 H (74-99) mg/dL POC Glucose (mg/dL) (75-99) mg/dL Total Protein 6.1 L (6.3-8.2) g/dL Albumin 3.3 L (3.5-5.0) g/dL Microbiology - Last 24 Hours (Table) 01/26/18 19:40 Gram Stain - Preliminary Sputum 01/21/18 12:48 Blood Culture - Preliminary Blood No Growth after 120 hours Assessment and Plan Plan: Assessment 1 acute on top of chronic hypoxic and hypercapnic respiratory failure, with development of diffuse bilateral pulmonary infiltrates/consolidation right more than left. Possible pulmonary edema specially the patient responded nicely to diuretics. Superimposed pneumonia cannot be completely excluded. Today's chest x-ray shows improvement in aeration of the right lung and the patient is much more comfortable and there is improvement in the acid base status and subsequent blood gases. On 01/26/2018 there has been considerable improvement in the patient's volume status and chest x-ray findings. The patient has diuresed more than 6 L. She continue the diuresis IV Lasix. Oxidation is also improved. The patient is less short of breath compared to yesterday. On 01/27/2018 the patient is still being diuresis with IV Lasix. Oxygenation is improved. She is off the BiPAP. She is on 40s of oxygen by nasal cannula. Chest x-ray shows improvement in the volume status. No new complaints otherwise for today. No chest pain. She is on oral Augmentin. She is also on DuoNeb neb treatments around the clock. The patient is also on IV Lasix 40 mg every 12 hours. 2 altered mental status, recovered and this was related to CO2 narcosis. The patient's mentation is back to normal. 3 right lower lobe pulmonary nodule measuring 2 x 1 cm in size in addition to suspicious mediastinal lymphadenopathy. Findings are quite suspicious for lung cancer that needs to be further investigated, considering a biopsy during her current hospital stay. 4 previous history of left lower lobe resection back in the year 2004 non-small cell lung cancer 5 chronic pleural calcification on the left lower lobe related to lobectomy 6 COPD severe with an FEV1 of 36% of predicted at baseline 7 chronic hypoxic respiratory failure maintained on oxygen 4 L/m nasal cannula 8 CHF with diastolic dysfunction 9 coronary artery disease 10 chronic atrial fibrillation maintained on long-term anticoagulation Plan The patient will be continued on IV Lasix for another 24 hours. She is still diuresing adequately. She is on oral Augmentin. We'll stop the Eliquis for today and we'll proceed with bronchoscopy and transbronchial needle aspirate of the pretracheal lymph node tomorrow for diagnostic and staging purposes. She was agreeable to the procedure. Appendectomy after midnight. We'll follow.
--- NOTE | 2018-01-27 09:55 | XR ---
EXAMINATION TYPE: XR chest 1V DATE OF EXAM: 01/27/2018 COMPARISON: Prior chest 01/26/2018 HISTORY: Shortness of breath TECHNIQUE: Single frontal view of the chest is obtained. FINDINGS: Patient is rotated. Pleural parenchymal changes are similar to prior exam. IMPRESSION: No significant interval change. There may be underlying interstitial lung disease, corre late for pulmonary venous hypertension and interstitial edema. Possible left lower lobe atelectasis v ersus pneumonia and associated effusion, follow-up recommended. Rotated exam.
--- NOTE | 2018-01-27 10:29 | P.PN ---
Subjective Progress Note Date: 01/27/18 This is a 72-year-old female with past medical history noted below significant for severe COPD and paroxysmal atrial fibrillation who presented to the hospital with worsening shortness of breath. Patient said that his symptoms started 2 days ago and is being getting progressively worse. Her shortness of breath is mostly exertional. She describes a nonproductive cough that is being ongoing for several days as well. There is no recent sick contact. No fevers or chills. No chest pain. Patient was evaluated in the emergency room and was found to be in atrial fibrillation with rapid ventricular response and heart rate up to 132. Patient underwent a chest x-ray showing evidence of bilateral pulmonary edema with suspected underlying pneumonia. Patient was started on a Cardizem drip and was given one-time dose of IV Lasix. She is also on antibiotic. She was noted to have some wheezing in the emergency room that resolved today. 01/24/2018 patient was transferred over to the ICU over the weekend due to worsening shortness of breath and hypoxic respiratory failure. She's currently on BiPAP. Still confused. Reports some shortness of breath. Denies any chest pain. She was having atrial fibrillation with rapid ventricular response she is scheduled for metoprolol. Chest x-ray and blood gases are showing improvement. She is on IV Lasix and IV antibiotics. Pulmonary and cardiology are following. Patient also had fever of 101.1 yesterday. She had a temp of 100.9 this morning which is down to 98.5 01/25/2018 patient currently sitting at bedside chair. She is off of BiPAP. She is on 6 L satting at 91%. Cardiology is recommending that she stays on IV Lasix for another 24 hours. Chest x-ray showing correlate for congestive heart failure, pneumonia versus atelectasis. Patient reports improvement in her cough and shortness of breath. Patient has been having elevated blood sugars. Levemir has been ordered. 01/27/2018 patient sitting up at bedside chair. Pulmonary service is planning on bronchoscopy with biopsy of paratracheal lymph nodes tomorrow. Eliquis has been placed on hold. Rice catheter will be removed today. She will maintain IV Lasix for another 24 hours. Patient denies any chest pain. Reporting improvement in her shortness of breath. She is down to 4 L satting at 92%. Objective - Vital Signs Vital signs: Vital Signs Temp 98.1 F 01/27/18 04:00 Pulse 107 H 01/27/18 08:00 Resp 37 H 01/27/18 08:00 BP 140/51 01/27/18 08:00 Pulse Ox 92 L 01/27/18 08:00 Intake & Output 01/26/18 01/27/18 01/27/18 18:59 06:59 18:59 Intake Total 220 290 Output Total 1605 1050 Balance -1385 -1050 290 Weight 95.2 kg Intake: IV 100 50 0.9 NACL 100 Piperacillin-Tazobactam 3 50 .375 gm In Dextrose/Water 1 50ml.bag @ 12.5 mls/hr IVPB Q8HR [facility] Rx#: [id number] Oral 120 240 Output: Urine 1605 1050 Other: Voiding Method Indwelling Catheter Indwelling Catheter Indwelling Catheter - Exam Head normocephalic Neck supple Lungs clear to auscultation bilaterally no wheezing or crackles Heart irregular Abdomen is soft nontender nondistended positive bowel sounds no hepatosplenomegaly Extremities no edema Neuro patient is alert and orientated to name and place. Did not know year - Labs CBC & Chem 7: 01/27/18 04:30 01/27/18 04:30 Labs: Abnormal Lab Results - Last 24 Hours (Table) 01/26/18 01/26/18 01/26/18 Range/Units 11:56 17:01 21:20 WBC (3.8-10.6) k/uL RBC (3.80-5.40) m/uL Hgb (11.4-16.0) gm/dL Hct (34.0-46.0) % Neutrophils # (1.3-7.7) k/uL Chloride (98-107) mmol/L Carbon Dioxide (22-30) mmol/L BUN (7-17) mg/dL Glucose (74-99) mg/dL POC Glucose (mg/dL) 167 H 258 H 251 H (75-99) mg/dL Total Protein (6.3-8.2) g/dL Albumin (3.5-5.0) g/dL 01/27/18 01/27/18 Range/Units 04:30 04:30 WBC 12.6 H (3.8-10.6) k/uL RBC 3.31 L (3.80-5.40) m/uL Hgb 8.7 L (11.4-16.0) gm/dL Hct 28.1 L (34.0-46.0) % Neutrophils # 9.2 H (1.3-7.7) k/uL Chloride 92 L (98-107) mmol/L Carbon Dioxide 36 H (22-30) mmol/L BUN 24 H (7-17) mg/dL Glucose 127 H (74-99) mg/dL POC Glucose (mg/dL) (75-99) mg/dL Total Protein 6.1 L (6.3-8.2) g/dL Albumin 3.3 L (3.5-5.0) g/dL Microbiology - Last 24 Hours (Table) 01/26/18 19:40 Gram Stain - Preliminary Sputum 01/21/18 12:48 Blood Culture - Preliminary Blood No Growth after 120 hours Assessment and Plan Assessment: 1. Acute on chronic hypoxic and hypercapnic respiratory failure secondary to congestive heart failure, COPD, A. fib with RVR and possible pneumonia. She is currently off of BiPAP and on 6 L satting at 95% 2. Acute COPD exacerbation: Continue nebulizer treatments 3. Acute on chronic diastolic Congestive heart failure exacerbation: Continue IV Lasix for another 24 hours per cardiology 4. Acute tracheobronchitis with possible pneumonia : Patient currently on Augmentin 5. Atrial fibrillation with rapid ventricular response. History of chronic persistent atrial fibrillation. Rate controlled. Eliquis on hold for bronchoscopy. Continue metoprolol and oral Cardizem 6. Essential hypertension 7. Diabetes mellitus type 2: Continue Levemir and sliding scale 8. History of lung cancer with prior left lobectomy 9. 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 Showing improvement 10. Iron deficiency anemia: Total iron of 10 and iron saturation also low at 3.36. Patient received a dose of IV iron during the admission.. Hemoglobin 8.7. Start ferrous sulfate 325 twice a day 11. Acute kidney injury likely related to diuretics. Now resolved. Continue to monitor 12. Paratracheal lymph nodes: Patient will be undergoing a bronchoscopy with transbronchial needle aspirate tomorrow I performed an examination of the patient and discussed their management with the physician Nurse Orthopaedic. I have reviewed the Physician Nurse Orthopaedic's notes and agree with the documented findings and plan of care
[2018-01-27] MEDS: FERROUS SULFATE 325 MG TAB PO SCH ×2 (12:03→21:18)
[2018-01-27 12:04] LABS: Glucose,Whole Blood 109 mg/dL (75-99)
--- NOTE | 2018-01-27 12:28 | PN ---
PROGRESS NOTE Mrs. Tavarez is a 72-year-old female with history of chronic obstructive lung disease, prior history of lung cancer, history of atrial fibrillation, who presented with worsening dyspnea and had a combination of respirating infection as well as congestive heart failure. She is feeling much better today. Her breathing has been stable. Her heart rate is under control. She has no chest pain. No dizziness. No palpitation. Her CT scan showed a nodule and she is scheduled to undergo a biopsy tomorrow by Dr. Alford. She continues to be on Eliquis 5 mg twice a day, diltiazem 60 mg 3 times a day, Lasix 40 mg IV q.12 hours, metoprolol succinate 100 mg daily, and spironolactone 25 mg daily. PHYSICAL EXAMINATION: Blood pressure 140/50 with the heart rate in the 90s. LUNGS: Mild decrease in breath sounds. No wheezes. HEART: Irregular, irregular. S1, S2. No S3. No rub. ABDOMEN: Soft, nontender. No organomegaly. EXTREMITIES: No edema. LAB DATA: Lab data revealed BUN and creatinine 24 and 1.0, potassium 4.0, hemoglobin of 8.7. IMPRESSION: 1. Respiratory failure with combination of congestive heart failure on the basis of diastolic dysfunction and exacerbation of chronic obstructive pulmonary disease. 2. Chronic atrial fibrillation, persistent and anticoagulated. 3. Hypertension. 4. Lung nodule. RECOMMENDATION: Her Eliquis will be held for 24 hours to undergo her bronchoscopy and biopsy. I will continue the intravenous diuretic for another 24 hours. In the meantime, we will continue to increase her level off activity. MMODL / IJN: [id number] /
[2018-01-27] MEDS: ONDANSETRON 4 MG/2 ML VIAL IVP PRN (18:17)
[2018-01-27 20:50] LABS: Glucose,Whole Blood 258 mg/dL (75-99)
[2018-01-27] MEDS: INSULIN DETEMIR 100 UNIT/ML 10 ML VIAL SQ SCH (21:18)
[2018-01-28 04:57] LABS: Basophils % (A) 0 %; Eosinophils # (A) 0.3 k/uL (0-0.7); Eosinophils % (A) 2 %; HCT 29.6 % (34.0-46.0); HGB 9.1 gm/dL (11.4-16.0); Hypochromasia Marked; Lymphocytes % (A) 17 %; MCH 26.8 pg (25.0-35.0); MCHC 30.8 g/dL (31.0-37.0); MCV 86.9 fL (80.0-100.0); Mean Platelet Volume 7.7; Monocytes # (A) 0.6 k/uL (0-1.0); Monocytes % (A) 5 %; Neutrophils # (A) 8.7 k/uL (1.3-7.7); Neutrophils % (A) 73 %; Platelet Count 369 k/uL (150-450); Poikilocytosis Slight; WBC 11.9 k/uL (3.8-10.6)
[2018-01-28 05:19] LABS: Albumin 3.4 g/dL (3.5-5.0); Potassium 4.2 mmol/L (3.5-5.1); Total Bilirubin 0.3 mg/dL (0.2-1.3)
[2018-01-28 07:35] LABS: Glucose,Whole Blood 122 mg/dL (75-99)
[2018-01-28] MEDS: BUDESONIDE 1 MG/2 ML NEBU INHALATION SCH ×2 (08:07→19:25)
[2018-01-28] MEDS: IPRATROPIUM-ALBUTEROL 3 ML NEB INHALATION SCH ×4 (08:07→19:25)
[2018-01-28] MEDS: INSULIN ASPART 100 UNIT/ML 1 ML 10 ML VIAL SQ SCH ×4 (08:52→22:00)
[2018-01-28] MEDS: FUROSEMIDE 10 MG/ML 4 ML VIAL IV SCH (08:53)
[2018-01-28] MEDS: SPIRONOLACTONE 25 MG TAB PO SCH (08:53)
[2018-01-28] MEDS: METOPROLOL SUCCINATE (ER) 100 MG TAB.ER.24H PO SCH (08:53)
[2018-01-28] MEDS: AMOXIC-POT CLAV 875-125MG 1 EACH TAB PO SCH ×2 (08:54→22:01)
[2018-01-28] MEDS: DILTIAZEM ORAL 60 MG TAB PO SCH ×3 (08:54→22:01)
[2018-01-28] MEDS: PANTOPRAZOLE 40 MG TABLET PO SCH ×2 (08:54→17:50)
[2018-01-28] MEDS: FERROUS SULFATE 325 MG TAB PO SCH ×2 (08:54→22:01)
[2018-01-28] MEDS: DOCUSATE 100 MG CAP PO SCH (08:54)
--- NOTE | 2018-01-28 10:30 | P.PN ---
Subjective Progress Note Date: 01/28/18 This is a 72-year-old female with past medical history noted below significant for severe COPD and paroxysmal atrial fibrillation who presented to the hospital with worsening shortness of breath. Patient said that his symptoms started 2 days ago and is being getting progressively worse. Her shortness of breath is mostly exertional. She describes a nonproductive cough that is being ongoing for several days as well. There is no recent sick contact. No fevers or chills. No chest pain. Patient was evaluated in the emergency room and was found to be in atrial fibrillation with rapid ventricular response and heart rate up to 132. Patient underwent a chest x-ray showing evidence of bilateral pulmonary edema with suspected underlying pneumonia. Patient was started on a Cardizem drip and was given one-time dose of IV Lasix. She is also on antibiotic. She was noted to have some wheezing in the emergency room that resolved today. 01/24/2018 patient was transferred over to the ICU over the weekend due to worsening shortness of breath and hypoxic respiratory failure. She's currently on BiPAP. Still confused. Reports some shortness of breath. Denies any chest pain. She was having atrial fibrillation with rapid ventricular response she is scheduled for metoprolol. Chest x-ray and blood gases are showing improvement. She is on IV Lasix and IV antibiotics. Pulmonary and cardiology are following. Patient also had fever of 101.1 yesterday. She had a temp of 100.9 this morning which is down to 98.5 01/25/2018 patient currently sitting at bedside chair. She is off of BiPAP. She is on 6 L satting at 91%. Cardiology is recommending that she stays on IV Lasix for another 24 hours. Chest x-ray showing correlate for congestive heart failure, pneumonia versus atelectasis. Patient reports improvement in her cough and shortness of breath. Patient has been having elevated blood sugars. Levemir has been ordered. On 01/26/2018 patient is alert and oriented 3 she was seen in intensive care unit today she is laying in bed comfortably, she is still having significant cough with minimal sputum production, she has shortness of breath with activity , pulse ox is 94% on high flow 4 L nasal cannula, she denies any chest pain no nausea or vomiting no abdominal pain no diarrhea and no urinary symptoms. 01/27/2018 patient sitting up at bedside chair. Pulmonary service is planning on bronchoscopy with biopsy of paratracheal lymph nodes tomorrow. Eliquis has been placed on hold. Rice catheter will be removed today. She will maintain IV Lasix for another 24 hours. Patient denies any chest pain. Reporting improvement in her shortness of breath. She is down to 4 L satting at 92%. 01/18/2018 patient sitting up at bedside chair. Feeling better cough and shortness of breath has improved. Pulmonary service is planning on bronchoscopy with biopsy of paratracheal lymph nodes however this was delayed because patient had breakfast this morning. Eliquis has been placed on hold. She is maintained on IV Lasix. Patient denies any chest pain. Reporting improvement in her shortness of breath. She is down to 4 L with pulse oximetry at 92%. Objective - Vital Signs Vital signs: Vital Signs Temp 98.1 F 01/28/18 08:00 Pulse 88 01/28/18 08:19 Resp 22 01/28/18 08:00 BP 133/62 01/28/18 08:00 Pulse Ox 98 01/28/18 08:00 Intake & Output 01/27/18 01/28/18 01/28/18 18:59 06:59 18:59 Intake Total 290 400 Output Total 200 1000 0 Balance 90 -1000 400 Weight 96.1 kg Intake: IV 50 Piperacillin-Tazobactam 3 50 .375 gm In Dextrose/Water 1 50ml.bag @ 12.5 mls/hr IVPB Q8HR [facility] Rx#: [id number] Oral 240 400 Output: Urine 200 1000 0 Other: Voiding Method Indwelling Catheter Indwelling Catheter - Exam Head normocephalic and atraumatic Neck supple no JVD no goiter Lungs clear to auscultation bilaterally no wheezing or crackles Heart irregular S1 and S2 no gallops no murmurs Abdomen is soft nontender nondistended positive bowel sounds no hepatosplenomegaly Extremities no edema no cyanosis or clubbing Neuro patient is alert and orientated, no gross focal deficit - Labs CBC & Chem 7: 01/28/18 04:28 01/28/18 04:28 Labs: Abnormal Lab Results - Last 24 Hours (Table) 01/27/18 01/27/18 01/28/18 Range/Units 12:02 20:47 04:28 WBC 11.9 H (3.8-10.6) k/uL RBC 3.40 L (3.80-5.40) m/uL Hgb 9.1 L (11.4-16.0) gm/dL Hct 29.6 L (34.0-46.0) % MCHC 30.8 L (31.0-37.0) g/dL RDW 16.0 H (11.5-15.5) % Neutrophils # 8.7 H (1.3-7.7) k/uL Chloride (98-107) mmol/L Carbon Dioxide (22-30) mmol/L BUN (7-17) mg/dL Glucose (74-99) mg/dL POC Glucose (mg/dL) 109 H 258 H (75-99) mg/dL Total Protein (6.3-8.2) g/dL Albumin (3.5-5.0) g/dL 01/28/18 01/28/18 Range/Units 04:28 07:34 WBC (3.8-10.6) k/uL RBC (3.80-5.40) m/uL Hgb (11.4-16.0) gm/dL Hct (34.0-46.0) % MCHC (31.0-37.0) g/dL RDW (11.5-15.5) % Neutrophils # (1.3-7.7) k/uL Chloride 92 L (98-107) mmol/L Carbon Dioxide 33 H (22-30) mmol/L BUN 28 H (7-17) mg/dL Glucose 144 H (74-99) mg/dL POC Glucose (mg/dL) 122 H (75-99) mg/dL Total Protein 6.0 L (6.3-8.2) g/dL Albumin 3.4 L (3.5-5.0) g/dL Microbiology - Last 24 Hours (Table) 01/21/18 12:48 Blood Culture - Final Blood No Growth after 144 hours Assessment and Plan Plan: 1. Acute on chronic hypoxic and hypercapnic respiratory failure secondary to congestive heart failure, COPD, A. fib with RVR and possible pneumonia. 2. Acute COPD exacerbation: Continue nebulizer treatments 3. Acute on chronic diastolic Congestive heart failure exacerbation: Continue IV Lasix for another 24 hours per cardiology 4. Acute tracheobronchitis with possible pneumonia currently on IV Zosyn 5. Atrial fibrillation with rapid ventricular response. History of chronic persistent atrial fibrillation area cardiology restarted Eliquis and metoprolol 6. Essential hypertension 7. Diabetes mellitus type 2: Elevated blood sugar in the 200s. Lantus 50 units at bedtime has been ordered. Continue sliding scale coverage. 8. History of lung cancer with prior left lobectomy 9. 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 Showing improvement 10. Iron deficiency anemia: Total iron of 10 and iron saturation also low at 3.36. Hemoglobin 8.4. Patient be given a dose of IV iron 11. Acute kidney injury likely related to diuretics. Now resolved. Continue to monitor. 12. Paratracheal lymph nodes: Patient will be undergoing a bronchoscopy with transbronchial needle aspirate tomorrow Medication and labs were reviewed patient was examined Continue current management possible transfer out of ICU today
[2018-01-28] MEDS: SODIUM CHLORIDE 0.9% 1,000 ML IV SCH (11:06)
--- NOTE | 2018-01-28 11:32 | PN ---
PROGRESS NOTE Mrs. Tavarez is a 72-year-old female with known history of chronic obstructive lung disease, history of atrial fibrillation, who had abnormal CT scan, who presented with symptoms of progressive dyspnea and atrial fibrillation with rapid ventricular response. She is feeling better this morning. Her breathing is stable. She was scheduled to undergo bronchoscopy today, but that was canceled because of her that she had breakfast. She denies any dizziness or palpitation. She denies any nausea. She continues to be on Eliquis 5 mg twice a day, diltiazem 60 mg 3 times a day, Lasix 40 mg IV q.12 hours, metoprolol succinate 100 mg daily, spironolactone 25 mg daily. PHYSICAL EXAMINATION: Blood pressure 133/60 with the heart rate in the 80s. LUNGS: No wheezes with mild decrease in breath sounds. HEART: Irregular, irregular. S1, S2. No S3, no rub with a systolic murmur. ABDOMEN: Soft, nontender. EXTREMITIES: No edema. LAB DATA: Lab data revealed a BUN and creatinine 28 and 1.04, potassium 4.2, hemoglobin of 9.1. IMPRESSION: 1. Symptoms of progressive dyspnea with a combination of congestive heart failure and possible pulmonary infection. 2. Atrial fibrillation, persistent, chronic. 3. Abnormal CT scan raising the possibility of malignancy in a patient with known history of prior lung malignancy. 4. History of coronary artery disease. 5. Severe chronic obstructive lung disease. RECOMMENDATIONS: I will switch her diuretics to oral. Continue rest of medical regimen. Increase her level activity and depending on her progress, further recommendation will be made. MMODL / IJN: [id number] /
[2018-01-28 12:23] LABS: Glucose,Whole Blood 205 mg/dL (75-99)
[2018-01-28] MEDS: APIXABAN 5 MG TAB PO SCH ×2 (12:41→22:01)
--- NOTE | 2018-01-28 13:39 | P.PN ---
Subjective Progress Note Date: 01/28/18 This is a very pleasant 72-year-old female patient with a known history of atrial fibrillation anticoagulated with Eliquis, coronary artery disease with previous stent placement, diastolic congestive heart failure, diabetes mellitus , hyperlipidemia, hypertension, meningitis back in the 1970s. She also has a history of non-small cell lung cancer with previous left lower lobe resection in 2003 and a most recent computed tomography scan revealing a new right lower lobe mass abutting the pleural surface strongly suspicious for bronchogenic carcinoma. She has a history of significant chronic obstructive pulmonary disease she is oxygen dependent. Her last FEV1 value was 34% of predicted. She follows with Dr. Arguello in our office for the same. She presented here to the emergency room again yesterday with complaints of increasing shortness of breath and weakness. Her chest x-ray shows evidence of vascular congestion and pulmonary edema with small effusions. Echocardiogram from July 2017 revealed a preserved left ventricular systolic function with ejection fraction between 55 and 60%. There is moderate to severe pulmonary hypertension with an RVSP of 57 mmHg. note that the patient was in the hospital on 01/05/2018 and she was and and for GI complaints and as part of the workup a CAT scan of the abdomen was done that showed a 2 x 1 cm right lower lobe pleural-based lesion and scattered pulmonary nodules and mediastinal lymphadenopathy very highly suspicious for a second primary lung cancer. She also had a 1.3 cm right paratracheal lymph node another 1.2 cm lymph node in the AP window. She also had pleural calcification of the left lung base consistent with surgical changes. She is oxygen dependent 2 L/m nasal cannula. I noted this abnormalities. I spoke to her and I told her that she will need outpatient follow-up with a PET scan and further biopsies if needed. She usually follows up with Dr. Arguello The patient was readmitted to the hospital and yesterday she got moved to the intensive care unit because of worsening shortness of breath. The patient also had A. fib/RVR. The patient also had diminished level of consciousness and this was attributed to CO2 narcosis knowing that her blood gases showed a pH of 7.19 with a pCO2 of 98 and pO2 of 66. The patient came to the ICU which was placed on BiPAP throughout the night. Follow blood gases showed improvement and acid base status and current pH is up to 7.3 with a pCO2 of 78 and pO2 of 62 on an FiO2 of 50% with a BiPAP setting of 13/5 cm of water. FiO2 has been further weaning down to 35%. The patient is currently on DuoNeb nebulized treatments around the clock, Pulmicort Respules, IV Lasix 40 mg every 12 hours, IV Zosyn as an empiric antibiotic coverage. Net fluid balance is 2.2 L negative as the patient got diabetes yesterday with IV Lasix. I reviewed the chest x-ray from yesterday and the patient had extensive omental infiltration of the right lung and some at the left. This was consistent with acute pulmonary edema. The patient subsequent chest x-ray from today shows improvement of the examination of the right lung. Clinically she is also improved with diuretics and the patient is at least 2 L negative with IV Lasix. On 01/26/2018 I'm seeing this patient for a follow-up. The patient is looking much better. She is improved considerably. Chest x-ray from today shows marked improvement in the pulmonary infiltrates in the volume status. Noted the patient has diuresed more than 5-6 L over the past 24 hours. The patient remains on IV Lasix. She has responded nicely to diuretics pH is also on IV Zosyn. Nevertheless, the acute respiratory and hypoxic event was related to fluid overload. The patient also has a remote history of lung cancer with a previous left lower lobe resection. She has a right lung mass and mediastinal lymphadenopathy that is awaiting to be biopsied at a later stage. This was supposed to be done on outpatient basis however I'm considering to do with why she is here to establish final diagnosis. The patient remains nature fibrillation. Rate is controlled at times however at times she goes more tachycardic in the low 100s. She is on metoprolol XL 50 mg by mouth daily and Cardizem 60 mg by mouth 3 times a day. He is also on long-term and to coagulation with Eliquis. Cultures of been all negative. Renal function is stable for now despite aggressive diuresis. Potassium level is being replaced is up to 3.9. On 01/27/2018 I'm seeing this patient for a follow-up. She is doing well. No specific complaints. Resting comfortably on a chair. Still diuresing with IV Lasix. Negative fluid balance an additional 2 L since yesterday. She is also in atrial fibrillation with a controlled rate. We discussed again the possibility of doing a biopsy of the pretracheal lymph nodes. I think it's reasonable as long as the patient is feeling better and she is willing to undergo the procedure. She is currently on 3-4 L of oxygen by nasal cannula which is her baseline. No chest pain. No altered mentation. No cough or sputum production. The electrolytes are all within normal limits. White cell count is not elevated. Renal function status shows a creatinine of 1.0. On and I'm seeing this patient for a follow-up. The plan was to proceed with a bronchoscopy and transbronchial needle aspirate of the mediastinal lymph nodes however the patient and up having breakfast this morning and the procedure got canceled. She is calm and comfortable. She is not having any chest pain. She remains nature fibrillation at the rate is under better control. She is on Lasix. No fever. No chills. No angina. No significant sputum production. Lasix and switch to oral 40 mg by mouth twice a day. She is on long-term anticoagulation with Eliquis and this will be restarted knowing that there are no plans for bronchoscopy. She is on oral Augmentin No other significant events over the past 24 hours. She is on 43 oxygen nasal cannula. Objective - Vital Signs Vital signs: Vital Signs Temp 97.8 F 01/28/18 12:00 Pulse 66 01/28/18 12:00 Resp 22 01/28/18 12:00 BP 170/77 01/28/18 12:00 Pulse Ox 96 01/28/18 12:00 Intake & Output 01/27/18 01/28/18 01/28/18 18:59 06:59 18:59 Intake Total 290 400 Output Total 200 1000 200 Balance 90 -1000 200 Weight 96.1 kg 96.1 kg Intake: IV 50 Piperacillin-Tazobactam 3 50 .375 gm In Dextrose/Water 1 50ml.bag @ 12.5 mls/hr IVPB Q8HR [facility] Rx#: [id number] Oral 240 400 Output: Urine 200 1000 200 Other: Voiding Method Indwelling Catheter Indwelling Catheter Bedside Commode - Exam Physical exam revealed a 72-year-old female , calm and comfortable likely distress on 4 L of oxygen by nasal cannula. HEENT: Anicteric sclerae, pink and moist conjunctivae. Extraocular movements intact, pupils are reactive to light they are round and equal. External inspection of ears and nose showed normal mucosa. Oral mucosa, soft and hard palate tongue and posterior pharynx are intact. Neck: Supple no neck masses, no JVD, no thyroid enlargement, no adenopathy. Lungs: Symmetrical expansion, Diminished breath sounds at the bases no rhonchi or wheezes, and the patient has improved aeration and diminished tract lungs bilaterally. Was that showed CVS: Irregular rate and rhythm, normal S1 and S2, no gallops, no murmur, no rubs. Abdomen: Soft, nontender, no megaly, no rebound, no guarding, positive bowel sounds. Extremities: No clubbing, no edema, no cyanosis, 2+ pulses in upper and lower extremities. Musculoskeletal: Muscle strength and tone normal. Neurologic: Alert and oriented 3, mental status is improved compared to yesterday however the patient remains quite confused and alert only to person - Labs CBC & Chem 7: 01/28/18 04:28 01/28/18 04:28 Labs: Abnormal Lab Results - Last 24 Hours (Table) 01/27/18 01/28/18 01/28/18 Range/Units 20:47 04:28 04:28 WBC 11.9 H (3.8-10.6) k/uL RBC 3.40 L (3.80-5.40) m/uL Hgb 9.1 L (11.4-16.0) gm/dL Hct 29.6 L (34.0-46.0) % MCHC 30.8 L (31.0-37.0) g/dL RDW 16.0 H (11.5-15.5) % Neutrophils # 8.7 H (1.3-7.7) k/uL Chloride 92 L (98-107) mmol/L Carbon Dioxide 33 H (22-30) mmol/L BUN 28 H (7-17) mg/dL Glucose 144 H (74-99) mg/dL POC Glucose (mg/dL) 258 H (75-99) mg/dL Total Protein 6.0 L (6.3-8.2) g/dL Albumin 3.4 L (3.5-5.0) g/dL 01/28/18 01/28/18 Range/Units 07:34 12:12 WBC (3.8-10.6) k/uL RBC (3.80-5.40) m/uL Hgb (11.4-16.0) gm/dL Hct (34.0-46.0) % MCHC (31.0-37.0) g/dL RDW (11.5-15.5) % Neutrophils # (1.3-7.7) k/uL Chloride (98-107) mmol/L Carbon Dioxide (22-30) mmol/L BUN (7-17) mg/dL Glucose (74-99) mg/dL POC Glucose (mg/dL) 122 H 205 H (75-99) mg/dL Total Protein (6.3-8.2) g/dL Albumin (3.5-5.0) g/dL Microbiology - Last 24 Hours (Table) 01/21/18 12:48 Blood Culture - Final Blood No Growth after 144 hours Assessment and Plan Plan: Assessment 1 acute on top of chronic hypoxic and hypercapnic respiratory failure, with development of diffuse bilateral pulmonary infiltrates/consolidation right more than left. Possible pulmonary edema specially the patient responded nicely to diuretics. Superimposed pneumonia cannot be completely excluded. Today's chest x-ray shows improvement in aeration of the right lung and the patient is much more comfortable and there is improvement in the acid base status and subsequent blood gases. On 01/26/2018 there has been considerable improvement in the patient's volume status and chest x-ray findings. The patient has diuresed more than 6 L. She continue the diuresis IV Lasix. Oxidation is also improved. The patient is less short of breath compared to yesterday. On 01/27/2018 the patient is still being diuresis with IV Lasix. Oxygenation is improved. She is off the BiPAP. She is on 40s of oxygen by nasal cannula. Chest x-ray shows improvement in the volume status. No new complaints otherwise for today. No chest pain. She is on oral Augmentin. She is also on DuoNeb neb treatments around the clock. The patient is also on IV Lasix 40 mg every 12 hours. On 01/28/2018, the patient is looking better. The patient was switched to oral Lasix. She is breathing comfortably on 42 of oxygen nasal cannula. No significant respiratory distress. No angina. No palpitations. No hemodynamic instability. 2 altered mental status, recovered and this was related to CO2 narcosis. The patient's mentation is back to normal. 3 right lower lobe pulmonary nodule measuring 2 x 1 cm in size in addition to suspicious mediastinal lymphadenopathy. Findings are quite suspicious for lung cancer 4 previous history of left lower lobe resection back in the year 2003 non-small cell lung cancer 5 chronic pleural calcification on the left lower lobe related to lobectomy 6 COPD severe with an FEV1 of 36% of predicted at baseline 7 chronic hypoxic respiratory failure maintained on oxygen 4 L/m nasal cannula 8 CHF with diastolic dysfunction 9 coronary artery disease 10 chronic atrial fibrillation maintained on long-term anticoagulation Plan Patient can be transferred to a medical floor. Switch this patient to oral Lasix. Continue and restart Eliquis for now as there are no plans for a bronchoscopy on this patient. She had breakfast today in the procedure got canceled and there are no plans fluid over the weekend. This can be done later stage on outpatient basis. Wean down the FiO2. Encourage increased level of activity as tolerated. We'll continue to follow.
[2018-01-28 16:55] LABS: Glucose,Whole Blood 205 mg/dL (75-99)
[2018-01-28] MEDS: FUROSEMIDE 20 MG TAB PO SCH (17:02)
[2018-01-28 21:46] LABS: Glucose,Whole Blood 252 mg/dL (75-99)
[2018-01-28] MEDS: INSULIN DETEMIR 100 UNIT/ML 10 ML VIAL SQ SCH (22:01)
[2018-01-29 07:30] LABS: Glucose,Whole Blood 167 mg/dL (75-99)
[2018-01-29] MEDS: PANTOPRAZOLE 40 MG TABLET PO SCH ×2 (08:04→18:01)
[2018-01-29] MEDS: AMOXIC-POT CLAV 875-125MG 1 EACH TAB PO SCH (08:04)
[2018-01-29] MEDS: SODIUM CHLORIDE 0.9% 1,000 ML IV SCH (08:04)
[2018-01-29] MEDS: DOCUSATE 100 MG CAP PO SCH (08:05)
[2018-01-29] MEDS: APIXABAN 5 MG TAB PO SCH ×2 (08:05→21:04)
[2018-01-29] MEDS: DILTIAZEM ORAL 60 MG TAB PO SCH ×3 (08:05→21:05)
[2018-01-29] MEDS: FERROUS SULFATE 325 MG TAB PO SCH ×2 (08:05→21:04)
[2018-01-29] MEDS: METOPROLOL SUCCINATE (ER) 100 MG TAB.ER.24H PO SCH (08:06)
[2018-01-29] MEDS: FUROSEMIDE 20 MG TAB PO SCH ×2 (08:06→16:20)
[2018-01-29] MEDS: SPIRONOLACTONE 25 MG TAB PO SCH (08:06)
[2018-01-29] MEDS: INSULIN ASPART 100 UNIT/ML 1 ML 10 ML VIAL SQ SCH ×4 (08:17→21:06)
[2018-01-29 08:30] LABS: Anisocytosis Slight; Basophils % (A) 0 %; Eosinophils # (A) 0.2 k/uL (0-0.7); Eosinophils % (A) 1 %; HCT 30.2 % (34.0-46.0); Hypochromasia Marked; Lymphocytes # (A) 1.9 k/uL (1.0-4.8); Lymphocytes % (A) 14 %; MCH 26.1 pg (25.0-35.0); MCHC 29.8 g/dL (31.0-37.0); MCV 87.6 fL (80.0-100.0); Monocytes # (A) 0.5 k/uL (0-1.0); Monocytes % (A) 4 %; Neutrophils # (A) 10.5 k/uL (1.3-7.7); Neutrophils % (A) 79 %; Platelet Count 364 k/uL (150-450); Poikilocytosis Slight; RBC 3.45 m/uL (3.80-5.40); RDW 16.5 % (11.5-15.5); WBC 13.3 k/uL (3.8-10.6)
[2018-01-29 08:40] LABS: Albumin 3.4 g/dL (3.5-5.0); Calcium 9.2 mg/dL (8.4-10.2); Potassium 4.8 mmol/L (3.5-5.1); Total Bilirubin 0.4 mg/dL (0.2-1.3); Total Protein 6.2 g/dL (6.3-8.2)
[2018-01-29] MEDS: BUDESONIDE 1 MG/2 ML NEBU INHALATION SCH ×2 (08:51→20:54)
[2018-01-29] MEDS: IPRATROPIUM-ALBUTEROL 3 ML NEB INHALATION SCH ×4 (08:51→20:57)
[2018-01-29] MEDS: ONDANSETRON 4 MG/2 ML VIAL IVP PRN (10:36)
[2018-01-29 11:41] LABS: Glucose,Whole Blood 275 mg/dL (75-99)
--- NOTE | 2018-01-29 14:42 | P.PN ---
Subjective Progress Note Date: 01/29/18 This is a 72-year-old female with past medical history noted below significant for severe COPD and paroxysmal atrial fibrillation who presented to the hospital with worsening shortness of breath. Patient said that his symptoms started 2 days ago and is being getting progressively worse. Her shortness of breath is mostly exertional. She describes a nonproductive cough that is being ongoing for several days as well. There is no recent sick contact. No fevers or chills. No chest pain. Patient was evaluated in the emergency room and was found to be in atrial fibrillation with rapid ventricular response and heart rate up to 132. Patient underwent a chest x-ray showing evidence of bilateral pulmonary edema with suspected underlying pneumonia. Patient was started on a Cardizem drip and was given one-time dose of IV Lasix. She is also on antibiotic. She was noted to have some wheezing in the emergency room that resolved today. 01/24/2018 patient was transferred over to the ICU over the weekend due to worsening shortness of breath and hypoxic respiratory failure. She's currently on BiPAP. Still confused. Reports some shortness of breath. Denies any chest pain. She was having atrial fibrillation with rapid ventricular response she is scheduled for metoprolol. Chest x-ray and blood gases are showing improvement. She is on IV Lasix and IV antibiotics. Pulmonary and cardiology are following. Patient also had fever of 101.1 yesterday. She had a temp of 100.9 this morning which is down to 98.5 01/25/2018 patient currently sitting at bedside chair. She is off of BiPAP. She is on 6 L satting at 91%. Cardiology is recommending that she stays on IV Lasix for another 24 hours. Chest x-ray showing correlate for congestive heart failure, pneumonia versus atelectasis. Patient reports improvement in her cough and shortness of breath. Patient has been having elevated blood sugars. Levemir has been ordered. On 01/26/2018 patient is alert and oriented 3 she was seen in intensive care unit today she is laying in bed comfortably, she is still having significant cough with minimal sputum production, she has shortness of breath with activity , pulse ox is 94% on high flow 4 L nasal cannula, she denies any chest pain no nausea or vomiting no abdominal pain no diarrhea and no urinary symptoms. 01/27/2018 patient sitting up at bedside chair. Pulmonary service is planning on bronchoscopy with biopsy of paratracheal lymph nodes tomorrow. Eliquis has been placed on hold. Rice catheter will be removed today. She will maintain IV Lasix for another 24 hours. Patient denies any chest pain. Reporting improvement in her shortness of breath. She is down to 4 L satting at 92%. 01/28/2018 patient sitting up at bedside chair. Feeling better cough and shortness of breath has improved. Pulmonary service is planning on bronchoscopy with biopsy of paratracheal lymph nodes however this was delayed because patient had breakfast this morning. Eliquis has been placed on hold. She is maintained on IV Lasix. Patient denies any chest pain. Reporting improvement in her shortness of breath. She is down to 4 L with pulse oximetry at 92%. 01/29/2018 patient sitting up at bedside chair. Feeling better cough and shortness of breath has improved. Eliquis has been placed on hold in anticipation for bronchoscopy. She is maintained on IV Lasix. Patient denies any chest pain. Reporting improvement in her shortness of breath. She is down to 4 L with pulse oximetry at 92%. She was switched to oral Augmentin this morning however she had an episode of severe nausea lasting 2 hours, oral Augmentin is stoped and patient was started on IV Rocephin Objective - Vital Signs Vital signs: Vital Signs Temp 97.4 F L 01/29/18 08:02 Pulse 76 01/29/18 13:45 Resp 22 01/29/18 08:02 BP 142/61 01/29/18 08:02 Pulse Ox 96 01/29/18 08:02 Intake & Output 01/28/18 01/29/18 01/29/18 18:59 06:59 18:59 Intake Total 582 577 3468 Output Total 300 100 Balance 100 480 920 Weight 96.1 kg 96 kg 96 kg Intake: Oral 973 478 8949 Output: Urine 300 100 Other: Voiding Method Bedside Commode Bedside Commode # Voids 5 3 - Exam Head normocephalic and atraumatic Neck supple no JVD no goiter Lungs clear to auscultation bilaterally no wheezing or crackles Heart irregular S1 and S2 no gallops no murmurs Abdomen is soft nontender nondistended positive bowel sounds no hepatosplenomegaly Extremities no edema no cyanosis or clubbing Neuro patient is alert and orientated, no gross focal deficit - Labs CBC & Chem 7: 01/29/18 07:32 01/29/18 07:32 Labs: Abnormal Lab Results - Last 24 Hours (Table) 01/28/18 01/28/18 01/29/18 Range/Units 16:41 21:45 07:27 WBC (3.8-10.6) k/uL RBC (3.80-5.40) m/uL Hgb (11.4-16.0) gm/dL Hct (34.0-46.0) % MCHC (31.0-37.0) g/dL RDW (11.5-15.5) % Neutrophils # (1.3-7.7) k/uL Chloride (98-107) mmol/L Carbon Dioxide (22-30) mmol/L BUN (7-17) mg/dL Creatinine (0.52-1.04) mg/dL Glucose (74-99) mg/dL POC Glucose (mg/dL) 205 H 252 H 167 H (75-99) mg/dL Total Protein (6.3-8.2) g/dL Albumin (3.5-5.0) g/dL 01/29/18 01/29/18 01/29/18 Range/Units 07:32 07:32 11:33 WBC 13.3 H (3.8-10.6) k/uL RBC 3.45 L (3.80-5.40) m/uL Hgb 9.0 L (11.4-16.0) gm/dL Hct 30.2 L (34.0-46.0) % MCHC 29.8 L (31.0-37.0) g/dL RDW 16.5 H (11.5-15.5) % Neutrophils # 10.5 H (1.3-7.7) k/uL Chloride 92 L (98-107) mmol/L Carbon Dioxide 32 H (22-30) mmol/L BUN 28 H (7-17) mg/dL Creatinine 1.05 H (0.52-1.04) mg/dL Glucose 153 H (74-99) mg/dL POC Glucose (mg/dL) 275 H (75-99) mg/dL Total Protein 6.2 L (6.3-8.2) g/dL Albumin 3.4 L (3.5-5.0) g/dL Microbiology - Last 24 Hours (Table) 01/26/18 19:40 Gram Stain - Final Sputum Sputum Culture - Final Assessment and Plan Plan: 1. Acute on chronic hypoxic and hypercapnic respiratory failure secondary to congestive heart failure, COPD, A. fib with RVR and possible pneumonia. 2. Acute COPD exacerbation: Continue nebulizer treatments 3. Acute on chronic diastolic Congestive heart failure exacerbation: Continue IV Lasix for another 24 hours per cardiology 4. Acute tracheobronchitis with possible pneumonia currently on oral Augmentin 5. Atrial fibrillation with rapid ventricular response. History of chronic persistent atrial fibrillation area cardiology restarted Eliquis and metoprolol 6. Essential hypertension 7. Diabetes mellitus type 2: Elevated blood sugar in the 200s. Lantus 50 units at bedtime has been ordered. Continue sliding scale coverage. 8. History of lung cancer with prior left lobectomy 9. 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 Showing improvement 10. Iron deficiency anemia: Total iron of 10 and iron saturation also low at 3.36. Hemoglobin 8.4. Patient be given a dose of IV iron 11. Acute kidney injury likely related to diuretics. Now resolved. Continue to monitor. 12. Paratracheal lymph nodes: Patient will be undergoing a bronchoscopy with transbronchial needle aspirate tomorrow Medication and labs were reviewed patient was examined Patient is improving slowly Continue current management, awaiting pulmonary decision regarding bronchoscopy , patient was restarted on Eliquis as planned for bronchoscopy was canceled yesterday, continue was current medications at this time will follow in a.m..
[2018-01-29] MEDS ORDERED: LACTULOSE 20 GM/30 ML CUP PO ONE (15:00)
[2018-01-29] MEDS: cefTRIAXone IN SWFI 1,000 MG/10 ML SYRINGE IVP SCH (15:15)
--- NOTE | 2018-01-29 16:39 | PN ---
PROGRESS NOTE Ms. Tavarez is a 72-year-old female who has a history of atrial fibrillation, history of COPD who presented with symptoms of progressive dyspnea and exacerbation of COPD and heart failure. She is feeling better today. Her breathing is stable. She denies any symptoms of chest pain. She denies any dizziness palpitation. She has constipation and some nausea. She has been restarted on her anticoagulation with Eliquis 5 mg twice a day. She is on diltiazem 60 mg 3 times a day, Lasix 40 mg twice a day, metoprolol succinate 100 mg daily, and spironolactone 25 mg daily. PHYSICAL EXAMINATION: Blood pressure 160/70 with a heart rate in 70s. LUNGS: No wheezes. HEART: Irregular regular, S1, S2. No S3. No rub. ABDOMEN: Soft, obese, nontender. EXTREMITIES: No edema. LAB DATA: BUN and creatinine 28 and 1.05, potassium 4.8, hemoglobin of 9. IMPRESSION: 1. Respiratory difficulties, improved with a history of chronic obstructive pulmonary disease as well as heart failure. 2. Atrial fibrillation, persistent. 3. Lung nodule, possible malignancy. 4. History of coronary disease. 5. Hypertension. RECOMMENDATION: From the cardiac standpoint, we will continue present therapy. Follow her renal function and depending on her progress, further recommendation will be made. MMODL / IJN: [id number] /
--- NOTE | 2018-01-29 16:44 | P.PN ---
Subjective Progress Note Date: 01/29/18 Principal diagnosis: Acute on chronic hypoxic and hypercapnic respiratory failure secondary to diffuse bilateral pulmonary infiltrate/consolidation right greater than left. This is a very pleasant 72-year-old female patient with a known history of atrial fibrillation anticoagulated with Eliquis, coronary artery disease with previous stent placement, diastolic congestive heart failure, diabetes mellitus , hyperlipidemia, hypertension, meningitis back in the 1970s. She also has a history of non-small cell lung cancer with previous left lower lobe resection in 2003 and a most recent computed tomography scan revealing a new right lower lobe mass abutting the pleural surface strongly suspicious for bronchogenic carcinoma. She has a history of significant chronic obstructive pulmonary disease she is oxygen dependent. Her last FEV1 value was 34% of predicted. She follows with Dr. Arguello in our office for the same. She presented here to the emergency room again yesterday with complaints of increasing shortness of breath and weakness. Her chest x-ray shows evidence of vascular congestion and pulmonary edema with small effusions. Echocardiogram from July 2017 revealed a preserved left ventricular systolic function with ejection fraction between 55 and 60%. There is moderate to severe pulmonary hypertension with an RVSP of 57 mmHg. note that the patient was in the hospital on 01/05/2018 and she was and and for GI complaints and as part of the workup a CAT scan of the abdomen was done that showed a 2 x 1 cm right lower lobe pleural-based lesion and scattered pulmonary nodules and mediastinal lymphadenopathy very highly suspicious for a second primary lung cancer. She also had a 1.3 cm right paratracheal lymph node another 1.2 cm lymph node in the AP window. She also had pleural calcification of the left lung base consistent with surgical changes. She is oxygen dependent 2 L/m nasal cannula. I noted this abnormalities. I spoke to her and I told her that she will need outpatient follow-up with a PET scan and further biopsies if needed. She usually follows up with Dr. Arguello The patient was readmitted to the hospital and yesterday she got moved to the intensive care unit because of worsening shortness of breath. The patient also had A. fib/RVR. The patient also had diminished level of consciousness and this was attributed to CO2 narcosis knowing that her blood gases showed a pH of 7.19 with a pCO2 of 98 and pO2 of 66. The patient came to the ICU which was placed on BiPAP throughout the night. Follow blood gases showed improvement and acid base status and current pH is up to 7.3 with a pCO2 of 78 and pO2 of 62 on an FiO2 of 50% with a BiPAP setting of 13/5 cm of water. FiO2 has been further weaning down to 35%. The patient is currently on DuoNeb nebulized treatments around the clock, Pulmicort Respules, IV Lasix 40 mg every 12 hours, IV Zosyn as an empiric antibiotic coverage. Net fluid balance is 2.2 L negative as the patient got diabetes yesterday with IV Lasix. I reviewed the chest x-ray from yesterday and the patient had extensive omental infiltration of the right lung and some at the left. This was consistent with acute pulmonary edema. The patient subsequent chest x-ray from today shows improvement of the examination of the right lung. Clinically she is also improved with diuretics and the patient is at least 2 L negative with IV Lasix. The patient was seen again today 01/25/2018 in follow-up in the intensive care unit. She is currently sitting up in a chair at the bedside. She is awake and alert in no acute distress. She is breathing quite a bit easier today as compared to yesterday. She responded well to diuretics. She remains on Lasix 40 mg every 12 hours. She is currently on 6 L high flow nasal cannula maintaining good O2 saturations in high 90s. Chest x-ray continues to show evidence of fluid volume overload along with continued infiltrates. She remains on Zosyn for now. She remains in atrial fibrillation with fairly controlled ventricular rate currently on Cardizem and metoprolol. Anticoagulated with Eliquis. On 01/26/2018 I'm seeing this patient for a follow-up. The patient is looking much better. She is improved considerably. Chest x-ray from today shows marked improvement in the pulmonary infiltrates in the volume status. Noted the patient has diuresed more than 5-6 L over the past 24 hours. The patient remains on IV Lasix. She has responded nicely to diuretics pH is also on IV Zosyn. Nevertheless, the acute respiratory and hypoxic event was related to fluid overload. The patient also has a remote history of lung cancer with a previous left lower lobe resection. She has a right lung mass and mediastinal lymphadenopathy that is awaiting to be biopsied at a later stage. This was supposed to be done on outpatient basis however I'm considering to do with why she is here to establish final diagnosis. The patient remains nature fibrillation. Rate is controlled at times however at times she goes more tachycardic in the low 100s. She is on metoprolol XL 50 mg by mouth daily and Cardizem 60 mg by mouth 3 times a day. He is also on long-term and to coagulation with Eliquis. Cultures of been all negative. Renal function is stable for now despite aggressive diuresis. Potassium level is being replaced is up to 3.9. On 01/27/2018 I'm seeing this patient for a follow-up. She is doing well. No specific complaints. Resting comfortably on a chair. Still diuresing with IV Lasix. Negative fluid balance an additional 2 L since yesterday. She is also in atrial fibrillation with a controlled rate. We discussed again the possibility of doing a biopsy of the pretracheal lymph nodes. I think it's reasonable as long as the patient is feeling better and she is willing to undergo the procedure. She is currently on 3-4 L of oxygen by nasal cannula which is her baseline. No chest pain. No altered mentation. No cough or sputum production. The electrolytes are all within normal limits. White cell count is not elevated. Renal function status shows a creatinine of 1.0. On and I'm seeing this patient for a follow-up. The plan was to proceed with a bronchoscopy and transbronchial needle aspirate of the mediastinal lymph nodes however the patient and up having breakfast this morning and the procedure got canceled. She is calm and comfortable. She is not having any chest pain. She remains nature fibrillation at the rate is under better control. She is on Lasix. No fever. No chills. No angina. No significant sputum production. Lasix and switch to oral 40 mg by mouth twice a day. She is on long-term anticoagulation with Eliquis and this will be restarted knowing that there are no plans for bronchoscopy. She is on oral Augmentin No other significant events over the past 24 hours. She is on 43 oxygen nasal cannula. The patient was seen and evaluated on 01/29/2018 in follow-up in the regular medical floor. She is currently sitting up in a chair at the bedside. She is a doing well from the pulmonary standpoint. She denies any worsening shortness of breath, cough or congestion. No chest pain, palpitations lightheadedness or dizziness. He is maintaining good O2 saturations in the 90s on 2 L/m per nasal cannula. He remains in atrial fibrillation with a controlled ventricular response. Anticoagulative with Eliquis. Objective - Vital Signs Vital signs: Vital Signs Temp 97.4 F L 01/29/18 08:02 Pulse 73 01/29/18 15:36 Resp 18 01/29/18 15:36 BP 160/70 01/29/18 14:02 Pulse Ox 92 L 01/29/18 14:02 Intake & Output 01/28/18 01/29/18 01/29/18 18:59 06:59 18:59 Intake Total 917 902 0480 Output Total 300 100 Balance 385 140 4682 Weight 96.1 kg 96 kg 96 kg Intake: Oral 410 295 6303 Output: Urine 300 100 Other: Voiding Method Bedside Commode Bedside Commode Bedside Commode # Voids 5 4 - Exam Physical exam revealed a 72-year-old female in mild degree of respiratory distress even while on the BiPAP. The patient's very synchronous with the BiPAP machine and the patient is currently on a BiPAP setting of 13/5 with an FiO2 of 35%. She is able to tolerate and she is synchronous. When off the BiPAP she is maintaining good O2 saturations in the 90s on 6 L high flow nasal cannula. HEENT: Anicteric sclerae, pink and moist conjunctivae. Extraocular movements intact, pupils are reactive to light they are round and equal. External inspection of ears and nose showed normal mucosa. Oral mucosa, soft and hard palate tongue and posterior pharynx are intact. Neck: Supple no neck masses, no JVD, no thyroid enlargement, no adenopathy. Lungs: Symmetrical expansion, Diminished breath sounds at the bases no rhonchi or wheezes CVS: Irregular rate and rhythm, normal S1 and S2, no gallops, no murmur, no rubs. Abdomen: Soft, nontender, no megaly, no rebound, no guarding, positive bowel sounds. Extremities: No clubbing, no edema, no cyanosis, 2+ pulses in upper and lower extremities. Musculoskeletal: Muscle strength and tone normal. Neurologic: Alert and oriented 1, mental status is improved compared to yesterday however the patient remains quite confused and alert only to person - Labs CBC & Chem 7: 01/29/18 07:32 01/29/18 07:32 Labs: Abnormal Lab Results - Last 24 Hours (Table) 01/28/18 01/28/18 01/29/18 Range/Units 16:41 21:45 07:27 WBC (3.8-10.6) k/uL RBC (3.80-5.40) m/uL Hgb (11.4-16.0) gm/dL Hct (34.0-46.0) % MCHC (31.0-37.0) g/dL RDW (11.5-15.5) % Neutrophils # (1.3-7.7) k/uL Chloride (98-107) mmol/L Carbon Dioxide (22-30) mmol/L BUN (7-17) mg/dL Creatinine (0.52-1.04) mg/dL Glucose (74-99) mg/dL POC Glucose (mg/dL) 205 H 252 H 167 H (75-99) mg/dL Total Protein (6.3-8.2) g/dL Albumin (3.5-5.0) g/dL 01/29/18 01/29/18 01/29/18 Range/Units 07:32 07:32 11:33 WBC 13.3 H (3.8-10.6) k/uL RBC 3.45 L (3.80-5.40) m/uL Hgb 9.0 L (11.4-16.0) gm/dL Hct 30.2 L (34.0-46.0) % MCHC 29.8 L (31.0-37.0) g/dL RDW 16.5 H (11.5-15.5) % Neutrophils # 10.5 H (1.3-7.7) k/uL Chloride 92 L (98-107) mmol/L Carbon Dioxide 32 H (22-30) mmol/L BUN 28 H (7-17) mg/dL Creatinine 1.05 H (0.52-1.04) mg/dL Glucose 153 H (74-99) mg/dL POC Glucose (mg/dL) 275 H (75-99) mg/dL Total Protein 6.2 L (6.3-8.2) g/dL Albumin 3.4 L (3.5-5.0) g/dL Microbiology - Last 24 Hours (Table) 01/26/18 19:40 Gram Stain - Final Sputum Sputum Culture - Final Assessment and Plan Assessment: Impression: #1 Acute on chronic hypoxic respiratory failure, multifactorial, secondary to acute exacerbation of diastolic congestive heart failure, acute exacerbation of chronic obstructive pulmonary disease, atrial fibrillation with rapid ventricular response, anemia. #2 Acute exacerbation of diastolic congestive heart failure. Previous echocardiogram revealing preserved left ventricular systolic function with ejection fraction 55-60%. #3 Acute exacerbation of chronic obstructive pulmonary disease, oxygen dependent , FEV1 value of 34% of predicted. #4 History of non-small cell lung cancer with previous left lower lobectomy in 2003. #5 Recent computed tomography scan revealing a right lower lobe mass abutting the pleural surface strongly suspicious for bronchogenic carcinoma. Under investigation in the outpatient setting. #6 Coronary artery disease with previous stent placement. #7 Atrial fibrillation with rapid ventricular response. Currently on a Cardizem drip. Anticoagulated with Eliquis. #8 Pulmonary hypertension. #9 Diabetes mellitus. #10 Hyperlipidemia. #11 Hypertension. #12 Remote history of meningitis. Plan: The patient was seen and evaluated by Dr. Alford. We'll continue to diurese the patient. Continue with her COPD medications including bronchodilators 4 times a day and when necessary, Symbicort. Antibiotics in the form of ceftriaxone. She is anticoagulated with Eliquis. Protonix for GI prophylaxis. Follow up with Dr. Arguello in our office regarding the right lower lung mass and suspicious mediastinal lymphadenopathy. We will continue to follow and make further recommendations based on her clinical status. I, the cosigning physician, performed a history & physical examination of the patient. Lungs sounds with crackles in the bilateral posterior bases. Maintaining good O2 saturations in the 90s on 2 L/m high flow per nasal cannula. I discussed the assessment and plan of care with my nurse practitioner , Juany Nielsen. I attest to the above note as dictated by her.
[2018-01-29 17:46] LABS: Glucose,Whole Blood 226 mg/dL (75-99)
[2018-01-29] MEDS: INSULIN DETEMIR 100 UNIT/ML 10 ML VIAL SQ SCH (21:05)
[2018-01-30] MEDS: IPRATROPIUM-ALBUTEROL 3 ML NEB INHALATION SCH ×4 (07:13→19:46)
[2018-01-30] MEDS: BUDESONIDE 1 MG/2 ML NEBU INHALATION SCH ×2 (07:13→19:46)
[2018-01-30 07:27] LABS: Glucose,Whole Blood 76 mg/dL (75-99)
[2018-01-30 07:38] LABS: Glucose,Whole Blood 77 mg/dL (75-99)
[2018-01-30] MEDS: INSULIN ASPART 100 UNIT/ML 1 ML 10 ML VIAL SQ SCH ×4 (07:45→20:58)
[2018-01-30] MEDS: SODIUM CHLORIDE 0.9% 1,000 ML IV SCH (07:46)
[2018-01-30] MEDS: DILTIAZEM ORAL 60 MG TAB PO SCH ×3 (07:50→20:59)
[2018-01-30] MEDS: SPIRONOLACTONE 25 MG TAB PO SCH (07:50)
[2018-01-30] MEDS: APIXABAN 5 MG TAB PO SCH ×2 (07:51→20:59)
[2018-01-30] MEDS: DOCUSATE 100 MG CAP PO SCH (07:51)
[2018-01-30] MEDS: METOPROLOL SUCCINATE (ER) 100 MG TAB.ER.24H PO SCH (07:51)
[2018-01-30] MEDS: PANTOPRAZOLE 40 MG TABLET PO SCH ×2 (07:51→17:29)
[2018-01-30] MEDS: FERROUS SULFATE 325 MG TAB PO SCH ×2 (07:51→20:59)
[2018-01-30] MEDS: FUROSEMIDE 40 MG TAB PO SCH ×2 (07:52→16:09)
[2018-01-30] MEDS: cefTRIAXone IN SWFI 1,000 MG/10 ML SYRINGE IVP SCH (07:57)
[2018-01-30 08:00] LABS: Basophils % (A) 0 %; Eosinophils # (A) 0.2 k/uL (0-0.7); Eosinophils % (A) 1 %; HCT 29.4 % (34.0-46.0); HGB 8.9 gm/dL (11.4-16.0); Hypochromasia Marked; Lymphocytes # (A) 1.6 k/uL (1.0-4.8); Lymphocytes % (A) 11 %; MCH 26.5 pg (25.0-35.0); MCHC 30.1 g/dL (31.0-37.0); MCV 88.2 fL (80.0-100.0); Mean Platelet Volume 7.6; Monocytes # (A) 0.6 k/uL (0-1.0); Monocytes % (A) 4 %; Neutrophils # (A) 12.4 k/uL (1.3-7.7); Neutrophils % (A) 82 %; Platelet Count 372 k/uL (150-450); Poikilocytosis Slight; RBC 3.34 m/uL (3.80-5.40); WBC 15.1 k/uL (3.8-10.6)
[2018-01-30 08:02] LABS: Albumin 3.2 g/dL (3.5-5.0); Calcium 9.2 mg/dL (8.4-10.2); Potassium 4.3 mmol/L (3.5-5.1); Total Bilirubin 0.3 mg/dL (0.2-1.3)
[2018-01-30 11:42] LABS: Glucose,Whole Blood 128 mg/dL (75-99)
[2018-01-30] MEDS ORDERED: MAGNESIUM HYDROXIDE 2,400 MG/10 ML CUP PO PRN (13:02)
--- NOTE | 2018-01-30 13:09 | P.PN ---
Subjective Progress Note Date: 01/30/18 This is a 72-year-old female with past medical history noted below significant for severe COPD and paroxysmal atrial fibrillation who presented to the hospital with worsening shortness of breath. Patient said that his symptoms started 2 days ago and is being getting progressively worse. Her shortness of breath is mostly exertional. She describes a nonproductive cough that is being ongoing for several days as well. There is no recent sick contact. No fevers or chills. No chest pain. Patient was evaluated in the emergency room and was found to be in atrial fibrillation with rapid ventricular response and heart rate up to 132. Patient underwent a chest x-ray showing evidence of bilateral pulmonary edema with suspected underlying pneumonia. Patient was started on a Cardizem drip and was given one-time dose of IV Lasix. She is also on antibiotic. She was noted to have some wheezing in the emergency room that resolved today. 01/24/2018 patient was transferred over to the ICU over the weekend due to worsening shortness of breath and hypoxic respiratory failure. She's currently on BiPAP. Still confused. Reports some shortness of breath. Denies any chest pain. She was having atrial fibrillation with rapid ventricular response she is scheduled for metoprolol. Chest x-ray and blood gases are showing improvement. She is on IV Lasix and IV antibiotics. Pulmonary and cardiology are following. Patient also had fever of 101.1 yesterday. She had a temp of 100.9 this morning which is down to 98.5 01/25/2018 patient currently sitting at bedside chair. She is off of BiPAP. She is on 6 L satting at 91%. Cardiology is recommending that she stays on IV Lasix for another 24 hours. Chest x-ray showing correlate for congestive heart failure, pneumonia versus atelectasis. Patient reports improvement in her cough and shortness of breath. Patient has been having elevated blood sugars. Levemir has been ordered. On 01/26/2018 patient is alert and oriented 3 she was seen in intensive care unit today she is laying in bed comfortably, she is still having significant cough with minimal sputum production, she has shortness of breath with activity , pulse ox is 94% on high flow 4 L nasal cannula, she denies any chest pain no nausea or vomiting no abdominal pain no diarrhea and no urinary symptoms. 01/27/2018 patient sitting up at bedside chair. Pulmonary service is planning on bronchoscopy with biopsy of paratracheal lymph nodes tomorrow. Eliquis has been placed on hold. Rice catheter will be removed today. She will maintain IV Lasix for another 24 hours. Patient denies any chest pain. Reporting improvement in her shortness of breath. She is down to 4 L satting at 92%. 01/28/2018 patient sitting up at bedside chair. Feeling better cough and shortness of breath has improved. Pulmonary service is planning on bronchoscopy with biopsy of paratracheal lymph nodes however this was delayed because patient had breakfast this morning. Eliquis has been placed on hold. She is maintained on IV Lasix. Patient denies any chest pain. Reporting improvement in her shortness of breath. She is down to 4 L with pulse oximetry at 92%. 01/29/2018 patient sitting up at bedside chair. Feeling better cough and shortness of breath has improved. Eliquis has been placed on hold in anticipation for bronchoscopy. She is maintained on IV Lasix. Patient denies any chest pain. Reporting improvement in her shortness of breath. She is down to 4 L with pulse oximetry at 92%. She was switched to oral Augmentin this morning however she had an episode of severe nausea lasting 2 hours, oral Augmentin is stoped and patient was started on IV Rocephin. On 01/30/2018 Patient is alert and oriented complaining of abdominal discomfort and constipation, otherwise no complaints at this time, white blood count is up to 15.5, otherwise no significant change since yesterday, at this time will give milk of magnesia for constipation, with recheck chest x-ray and check abdomen ultrasound, and continue to monitor white blood count Objective - Vital Signs Vital signs: Vital Signs Temp 97.8 F 01/30/18 06:41 Pulse 78 01/30/18 11:18 Resp 17 01/30/18 06:41 BP 138/61 01/30/18 06:41 Pulse Ox 92 L 01/30/18 06:41 Intake & Output 01/29/18 01/30/18 01/30/18 18:59 06:59 18:59 Intake Total 1700 180 Output Total 100 100 Balance 1600 180 -100 Weight 96 kg 96 kg 96 kg Intake: Oral 1700 180 Output: Urine 100 100 Other: Voiding Method Bedside Commode Bedside Commode Toilet # Voids 4 1 1 - Exam Head normocephalic and atraumatic Neck supple no JVD no goiter Lungs clear to auscultation bilaterally no wheezing or crackles Heart irregular S1 and S2 no gallops no murmurs Abdomen is soft nontender nondistended positive bowel sounds no hepatosplenomegaly Extremities no edema no cyanosis or clubbing Neuro patient is alert and orientated, no gross focal deficit - Labs CBC & Chem 7: 01/30/18 07:10 01/30/18 07:10 Labs: Abnormal Lab Results - Last 24 Hours (Table) 01/29/18 01/30/18 01/30/18 Range/Units 17:40 07:10 07:10 WBC 15.1 H (3.8-10.6) k/uL RBC 3.34 L (3.80-5.40) m/uL Hgb 8.9 L (11.4-16.0) gm/dL Hct 29.4 L (34.0-46.0) % MCHC 30.1 L (31.0-37.0) g/dL RDW 16.0 H (11.5-15.5) % Neutrophils # 12.4 H (1.3-7.7) k/uL Chloride 95 L (98-107) mmol/L Carbon Dioxide 36 H (22-30) mmol/L BUN 24 H (7-17) mg/dL Glucose 71 L (74-99) mg/dL POC Glucose (mg/dL) 226 H (75-99) mg/dL Total Protein 6.0 L (6.3-8.2) g/dL Albumin 3.2 L (3.5-5.0) g/dL 01/30/18 Range/Units 11:39 WBC (3.8-10.6) k/uL RBC (3.80-5.40) m/uL Hgb (11.4-16.0) gm/dL Hct (34.0-46.0) % MCHC (31.0-37.0) g/dL RDW (11.5-15.5) % Neutrophils # (1.3-7.7) k/uL Chloride (98-107) mmol/L Carbon Dioxide (22-30) mmol/L BUN (7-17) mg/dL Glucose (74-99) mg/dL POC Glucose (mg/dL) 128 H (75-99) mg/dL Total Protein (6.3-8.2) g/dL Albumin (3.5-5.0) g/dL Assessment and Plan Plan: 1. Acute on chronic hypoxic and hypercapnic respiratory failure secondary to congestive heart failure, COPD, A. fib with RVR and possible pneumonia. 2. Acute COPD exacerbation: Continue nebulizer treatments 3. Acute on chronic diastolic Congestive heart failure exacerbation: Continue IV Lasix for another 24 hours per cardiology 4. Acute tracheobronchitis with possible pneumonia currently on oral Augmentin 5. Atrial fibrillation with rapid ventricular response. History of chronic persistent atrial fibrillation area cardiology restarted Eliquis and metoprolol 6. Essential hypertension 7. Diabetes mellitus type 2: Elevated blood sugar in the 200s. Lantus 50 units at bedtime has been ordered. Continue sliding scale coverage. 8. History of lung cancer with prior left lobectomy 9. 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 Showing improvement 10. Iron deficiency anemia: Total iron of 10 and iron saturation also low at 3.36. Hemoglobin 8.4. Patient be given a dose of IV iron 11. Acute kidney injury likely related to diuretics. Now resolved. Continue to monitor. 12. Paratracheal lymph nodes: Patient will be undergoing a bronchoscopy with transbronchial needle aspirate tomorrow 13. Leukocytosis, WBC up to 15.5 patient did not receive any systemic steroids, will recheck CXR and check abdomen ultrasound Medication and labs were reviewed patient was examined Patient is improving slowly Continue current management, awaiting pulmonary decision regarding bronchoscopy , patient was restarted on Eliquis as planned for bronchoscopy was canceled yesterday, continue was current medications at this time will follow in a.m..
--- NOTE | 2018-01-30 13:33 | XR ---
EXAMINATION TYPE: XR chest 2V DATE OF EXAM: 01/30/2018 HISTORY: follow up pneumonia. REFERENCE: Previous study dated 01/27/2018. FINDINGS: There continues to be left lower lobe airspace disease. There is a small left effusion. The right lung is clear. The heart is upper limits of normal in size. IMPRESSION: CONTINUING LEFT LOWER LOBE PNEUMONIA.
--- NOTE | 2018-01-30 14:17 | P.PN ---
Subjective Progress Note Date: 01/30/18 On 01/30/2018, I'm seeing this patient for a follow-up. Overall poor status is stable. I reviewed the chest x-ray from earlier this morning and there is some volume loss in the left lower lobe at the site of the previous left lower lobe resection for lung cancer. The right lung is essentially clear. The white cell count is up to 15.5. She is having some nausea and on and off constipation. She was given milk of magnesia. I rechecked x-ray and there is no evidence of any clear pneumonia. The patient is currently on oral Augmentin. As mentioned earlier, the patient is mediastinal lymphadenopathy and a right lower lobe lesion which is very highly suggestive underlying malignancy yet I did not have the chance to bronchoscope this patient during this current hospitalization. She is looking well neurologically. She is following commands. Answering questions. No emesis. No fever or chills. No other significant events otherwise for now. Objective - Vital Signs Vital signs: Vital Signs Temp 97.8 F 01/30/18 06:41 Pulse 78 01/30/18 11:18 Resp 17 01/30/18 06:41 BP 138/61 01/30/18 06:41 Pulse Ox 92 L 01/30/18 06:41 Intake & Output 01/29/18 01/30/18 01/30/18 18:59 06:59 18:59 Intake Total 1700 180 540 Output Total 100 100 Balance 1600 180 440 Weight 96 kg 96 kg 96 kg Intake: Oral 1700 180 540 Output: Urine 100 100 Other: Voiding Method Bedside Commode Bedside Commode Toilet # Voids 4 1 3 - Exam Physical exam revealed a 72-year-old female , calm and comfortable likely distress on 4 L of oxygen by nasal cannula. HEENT: Anicteric sclerae, pink and moist conjunctivae. Extraocular movements intact, pupils are reactive to light they are round and equal. External inspection of ears and nose showed normal mucosa. Oral mucosa, soft and hard palate tongue and posterior pharynx are intact. Neck: Supple no neck masses, no JVD, no thyroid enlargement, no adenopathy. Lungs: Symmetrical expansion, Diminished breath sounds at the bases no rhonchi or wheezes, and the patient has improved aeration and diminished tract lungs bilaterally. Was that showed CVS: Irregular rate and rhythm, normal S1 and S2, no gallops, no murmur, no rubs. Abdomen: Soft, nontender, no megaly, no rebound, no guarding, positive bowel sounds. Extremities: No clubbing, no edema, no cyanosis, 2+ pulses in upper and lower extremities. Musculoskeletal: Muscle strength and tone normal. Neurologic: Alert and oriented 3, mental status is improved compared to yesterday however the patient remains quite confused and alert only to person - Labs CBC & Chem 7: 01/30/18 07:10 01/30/18 07:10 Labs: Abnormal Lab Results - Last 24 Hours (Table) 01/29/18 01/30/18 01/30/18 Range/Units 17:40 07:10 07:10 WBC 15.1 H (3.8-10.6) k/uL RBC 3.34 L (3.80-5.40) m/uL Hgb 8.9 L (11.4-16.0) gm/dL Hct 29.4 L (34.0-46.0) % MCHC 30.1 L (31.0-37.0) g/dL RDW 16.0 H (11.5-15.5) % Neutrophils # 12.4 H (1.3-7.7) k/uL Chloride 95 L (98-107) mmol/L Carbon Dioxide 36 H (22-30) mmol/L BUN 24 H (7-17) mg/dL Glucose 71 L (74-99) mg/dL POC Glucose (mg/dL) 226 H (75-99) mg/dL Total Protein 6.0 L (6.3-8.2) g/dL Albumin 3.2 L (3.5-5.0) g/dL 01/30/18 Range/Units 11:39 WBC (3.8-10.6) k/uL RBC (3.80-5.40) m/uL Hgb (11.4-16.0) gm/dL Hct (34.0-46.0) % MCHC (31.0-37.0) g/dL RDW (11.5-15.5) % Neutrophils # (1.3-7.7) k/uL Chloride (98-107) mmol/L Carbon Dioxide (22-30) mmol/L BUN (7-17) mg/dL Glucose (74-99) mg/dL POC Glucose (mg/dL) 128 H (75-99) mg/dL Total Protein (6.3-8.2) g/dL Albumin (3.5-5.0) g/dL Assessment and Plan Plan: Assessment 1 acute on top of chronic hypoxic and hypercapnic respiratory failure, with development of diffuse bilateral pulmonary infiltrates/consolidation right more than left. The patient responded nicely to diuretics in the right lung pulmonary infiltrates have completely recovered. The patient has some volume loss and chronic opacity left lung base which is probably related to a previous lobectomy for lung cancer. She is currently on oral diuretics. She was also taken off the IV Zosyn and currently she is on Augmentin which got switched to Rocephin by the primary care physician today. This change was done due to some leukocytosis was noted on today's blood work. Nevertheless, I reviewed the chest x-ray and I do not think the source of infection is the lung. 2 altered mental status, recovered and this was related to CO2 narcosis. The patient's mentation is back to normal. 3 right lower lobe pulmonary nodule measuring 2 x 1 cm in size in addition to suspicious mediastinal lymphadenopathy. Findings are quite suspicious for lung cancer 4 previous history of left lower lobe resection back in the year 2003 non-small cell lung cancer 5 chronic pleural calcification on the left lower lobe related to lobectomy 6 COPD severe with an FEV1 of 36% of predicted at baseline 7 chronic hypoxic respiratory failure maintained on oxygen 4 L/m nasal cannula 8 CHF with diastolic dysfunction 9 coronary artery disease 10 chronic atrial fibrillation maintained on long-term anticoagulation Plan Suggest monitoring the white cell count. Continue IV Rocephin. She is having some gastrointestinal issues with nausea and constipation for which she was given laxatives. Monitor the bowel movements. Monitor the white count. We will need an outpatient bronchoscopy and chest bronchial needle aspirate of the paratracheal lymph node knowing that the findings in the lungs are very suspicious for a ongoing malignancy as the patient has a 2 cm mass in the right lower lobe and mediastinal lymphadenopathy which looks highly suspicious for malignancy. For now she is on anticoagulation with Eliquis and he relates controlled.
--- NOTE | 2018-01-30 14:22 | US ---
EXAMINATION TYPE: US abdomen complete DATE OF EXAM: 01/30/2018 COMPARISON: US & CT CLINICAL HISTORY: leukocytosis, abdominal pain. Pt states ABD pain, loss of appetite EXAM MEASUREMENTS: Liver Length: 22.7 cm Gallbladder Wall: 0.4 cm CBD: 0.8 cm Spleen: 12.6 cm Right Kidney: 13.4 x 6.0 x 6.6 cm Left Kidney: 12.1 x 6.4 x 5.2 cm Large pt body habitus Pancreas: wnl, tail obscured by overlying bowel gas Liver: Enlarged Gallbladder: Sludge with thickened wall Evidence for sonographic Lou's sign: No CBD: Slightly dilated Spleen: wnl Right Kidney: wnl Left Kidney: wnl, lower pole gassed out Upper IVC: wnl Abd Aorta: wnl, distal portion gassed out The liver is homogenous. There is evidence of hepatomegaly. The intrahepatic portion of the IVC and proximal abdominal aorta are within normal limits. Gallbladder sludge noted. Common bile duct is mild ly prominent. Gallbladder wall is mildly thickened. No evidence of pericholecystic fluid at this time . The visualized portions of the pancreas are homogenous. The spleen is at the upper limits of marshall l. Kidneys are symmetric and free of hydronephrosis. No renal lesions are seen. IMPRESSION: 1. Gallbladder sludge with gallbladder wall thickening and mild prominence of the common bile duct. C orrelate clinically for acute cholecystitis. 2. Hepatomegaly.
--- NOTE | 2018-01-30 16:49 | PN ---
PROGRESS NOTE HISTORY: Ms. Tavarez is a 72-year-old female, history of atrial fibrillation. History of prior lung cancer, who presented with respiratory distress and had respiratory failure with a combination of probable infectious process on top of congestive heart failure. She is feeling better. She denies any chest pain. There is a nodule on the CT scan that may require bronchoscopy and biopsies. She has a known history of severe COPD and a history of atrial fibrillation as well as history of coronary artery disease. She is feeling better today. She is complaining of some abdominal discomfort and workup has been is in the process. Her breathing overall is stable. She does not have any further symptoms of significant dyspnea. She continues to be at this time on Eliquis 5 mg twice a day, diltiazem 60 mg 3 times a day, Lasix 40 mg twice a day, metoprolol succinate 100 mg daily and spironolactone 25 mg daily. PHYSICAL EXAMINATION: Blood pressure 138/60 with a heart rate in the 70, lungs with decreased air exchange, but no wheezes. Heart irregularly irregular S1, S2. No S3. No rub. ABDOMEN: Soft, mild tenderness. EXTREMITIES: No edema. LAB DATA: Revealed hemoglobin of 8.9, BUN and creatinine 24 and 1.02. Potassium of 4.3. IMPRESSION: 1. Respiratory failure with a combination of chronic obstructive pulmonary disease and congestive heart failure with diastolic dysfunction. Improved. 2. Atrial fibrillation. 3. Lung nodules. 4. Prior history of lung carcinoma status post resection. 5. History of coronary artery disease. 6. Hypertension. RECOMMENDATIONS: From the cardiac standpoint, she is stable. We will continue on the present therapy. We will see her on as needed basis. Please feel free to call us for any questions. MMODL / IJN: [id number] /
[2018-01-30 17:29] LABS: Glucose,Whole Blood 120 mg/dL (75-99)
[2018-01-30 20:38] LABS: Glucose,Whole Blood 161 mg/dL (75-99)
[2018-01-30] MEDS: INSULIN DETEMIR 100 UNIT/ML 10 ML VIAL SQ SCH (20:58)
[2018-01-31 07:09] LABS: Glucose,Whole Blood 81 mg/dL (75-99)
[2018-01-31 07:33] LABS: Anisocytosis Slight; Basophils % (A) 0 %; Eosinophils # (A) 0.2 k/uL (0-0.7); Eosinophils % (A) 2 %; HGB 9.5 gm/dL (11.4-16.0); Hypochromasia Marked; Lymphocytes # (A) 1.9 k/uL (1.0-4.8); Lymphocytes % (A) 15 %; MCH 26.5 pg (25.0-35.0); MCHC 29.7 g/dL (31.0-37.0); MCV 88.9 fL (80.0-100.0); Mean Platelet Volume 7.8; Monocytes # (A) 0.5 k/uL (0-1.0); Monocytes % (A) 4 %; Neutrophils % (A) 78 %; Platelet Count 391 k/uL (150-450); Poikilocytosis Slight; RDW 16.1 % (11.5-15.5); WBC 12.9 k/uL (3.8-10.6)
[2018-01-31] MEDS: BUDESONIDE 1 MG/2 ML NEBU INHALATION SCH ×2 (07:43→19:05)
[2018-01-31] MEDS: IPRATROPIUM-ALBUTEROL 3 ML NEB INHALATION SCH ×4 (07:43→19:05)
[2018-01-31 07:57] LABS: Albumin 3.5 g/dL (3.5-5.0); Calcium 9.2 mg/dL (8.4-10.2); Potassium 4.4 mmol/L (3.5-5.1); Total Bilirubin 0.3 mg/dL (0.2-1.3); Total Protein 6.5 g/dL (6.3-8.2)
[2018-01-31] MEDS: INSULIN ASPART 100 UNIT/ML 1 ML 10 ML VIAL SQ SCH ×4 (09:28→20:55)
[2018-01-31] MEDS: PANTOPRAZOLE 40 MG TABLET PO SCH ×2 (09:37→17:01)
[2018-01-31] MEDS: APIXABAN 5 MG TAB PO SCH ×2 (09:38→20:46)
[2018-01-31] MEDS: DILTIAZEM ORAL 60 MG TAB PO SCH ×3 (09:38→20:46)
[2018-01-31] MEDS: SODIUM CHLORIDE 0.9% 1,000 ML IV SCH (09:38)
[2018-01-31] MEDS: cefTRIAXone IN SWFI 1,000 MG/10 ML SYRINGE IVP SCH (09:38)
[2018-01-31] MEDS: FERROUS SULFATE 325 MG TAB PO SCH ×2 (09:40→20:46)
[2018-01-31] MEDS: METOPROLOL SUCCINATE (ER) 100 MG TAB.ER.24H PO SCH (09:40)
[2018-01-31] MEDS: FUROSEMIDE 40 MG TAB PO SCH ×2 (09:40→17:01)
[2018-01-31] MEDS: SPIRONOLACTONE 25 MG TAB PO SCH (09:40)
[2018-01-31] MEDS: DOCUSATE 100 MG CAP PO SCH (10:51)
[2018-01-31 11:52] LABS: Glucose,Whole Blood 242 mg/dL (75-99)
[2018-01-31 12:31] LABS: Glucose,Whole Blood 219 mg/dL (75-99)
[2018-01-31] MEDS ORDERED: MAGNESIUM HYDROXIDE 2,400 MG/10 ML CUP PO PRN (15:55)
[2018-01-31] MEDS ORDERED: LACTULOSE 20 GM/30 ML CUP PO ONE (15:56)
--- NOTE | 2018-01-31 15:59 | P.PN ---
Subjective Progress Note Date: 01/31/18 This is a 72-year-old female with past medical history noted below significant for severe COPD and paroxysmal atrial fibrillation who presented to the hospital with worsening shortness of breath. Patient said that his symptoms started 2 days ago and is being getting progressively worse. Her shortness of breath is mostly exertional. She describes a nonproductive cough that is being ongoing for several days as well. There is no recent sick contact. No fevers or chills. No chest pain. Patient was evaluated in the emergency room and was found to be in atrial fibrillation with rapid ventricular response and heart rate up to 132. Patient underwent a chest x-ray showing evidence of bilateral pulmonary edema with suspected underlying pneumonia. Patient was started on a Cardizem drip and was given one-time dose of IV Lasix. She is also on antibiotic. She was noted to have some wheezing in the emergency room that resolved today. 01/24/2018 patient was transferred over to the ICU over the weekend due to worsening shortness of breath and hypoxic respiratory failure. She's currently on BiPAP. Still confused. Reports some shortness of breath. Denies any chest pain. She was having atrial fibrillation with rapid ventricular response she is scheduled for metoprolol. Chest x-ray and blood gases are showing improvement. She is on IV Lasix and IV antibiotics. Pulmonary and cardiology are following. Patient also had fever of 101.1 yesterday. She had a temp of 100.9 this morning which is down to 98.5 01/25/2018 patient currently sitting at bedside chair. She is off of BiPAP. She is on 6 L satting at 91%. Cardiology is recommending that she stays on IV Lasix for another 24 hours. Chest x-ray showing correlate for congestive heart failure, pneumonia versus atelectasis. Patient reports improvement in her cough and shortness of breath. Patient has been having elevated blood sugars. Levemir has been ordered. On 01/26/2018 patient is alert and oriented 3 she was seen in intensive care unit today she is laying in bed comfortably, she is still having significant cough with minimal sputum production, she has shortness of breath with activity , pulse ox is 94% on high flow 4 L nasal cannula, she denies any chest pain no nausea or vomiting no abdominal pain no diarrhea and no urinary symptoms. 01/27/2018 patient sitting up at bedside chair. Pulmonary service is planning on bronchoscopy with biopsy of paratracheal lymph nodes tomorrow. Eliquis has been placed on hold. Rice catheter will be removed today. She will maintain IV Lasix for another 24 hours. Patient denies any chest pain. Reporting improvement in her shortness of breath. She is down to 4 L satting at 92%. 01/28/2018 patient sitting up at bedside chair. Feeling better cough and shortness of breath has improved. Pulmonary service is planning on bronchoscopy with biopsy of paratracheal lymph nodes however this was delayed because patient had breakfast this morning. Eliquis has been placed on hold. She is maintained on IV Lasix. Patient denies any chest pain. Reporting improvement in her shortness of breath. She is down to 4 L with pulse oximetry at 92%. 01/29/2018 patient sitting up at bedside chair. Feeling better cough and shortness of breath has improved. Eliquis has been placed on hold in anticipation for bronchoscopy. She is maintained on IV Lasix. Patient denies any chest pain. Reporting improvement in her shortness of breath. She is down to 4 L with pulse oximetry at 92%. She was switched to oral Augmentin this morning however she had an episode of severe nausea lasting 2 hours, oral Augmentin is stoped and patient was started on IV Rocephin. On 01/30/2018 Patient is alert and oriented complaining of abdominal discomfort and constipation, otherwise no complaints at this time, white blood count is up to 15.5, otherwise no significant change since yesterday, at this time will give milk of magnesia for constipation, with recheck chest x-ray and check abdomen ultrasound, and continue to monitor white blood count On 01/31/2018 Patient is alert and oriented planning of constipation and abdominal discomfort complaining of shortness of breath with activity otherwise no complaints, white blood count down to 12.9 Objective - Vital Signs Vital signs: Vital Signs Temp 98.1 F 01/31/18 07:15 Pulse 80 01/31/18 15:46 Resp 18 01/31/18 07:15 BP 142/65 01/31/18 07:15 Pulse Ox 96 01/31/18 07:15 Intake & Output 01/30/18 01/31/18 01/31/18 18:59 06:59 18:59 Intake Total 540 10 Output Total 200 Balance 340 10 Weight 96 kg 97 kg Intake: IV 10 0.9 NACL 10 Oral 540 Output: Urine 200 Other: Voiding Method Toilet Bedside Commode Bedside Commode # Voids 3 1 3 # Bowel Movements 0 - Exam Head normocephalic and atraumatic Neck supple no JVD no goiter Lungs clear to auscultation bilaterally no wheezing or crackles Heart irregular S1 and S2 no gallops no murmurs Abdomen is soft nontender nondistended positive bowel sounds no hepatosplenomegaly Extremities no edema no cyanosis or clubbing Neuro patient is alert and orientated, no gross focal deficit - Labs CBC & Chem 7: 01/31/18 07:12 01/31/18 07:12 Labs: Abnormal Lab Results - Last 24 Hours (Table) 01/29/18 01/30/18 01/30/18 Range/Units 20:28 17:27 20:32 WBC (3.8-10.6) k/uL RBC (3.80-5.40) m/uL Hgb (11.4-16.0) gm/dL Hct (34.0-46.0) % MCHC (31.0-37.0) g/dL RDW (11.5-15.5) % Neutrophils # (1.3-7.7) k/uL Chloride (98-107) mmol/L Carbon Dioxide (22-30) mmol/L BUN (7-17) mg/dL Creatinine (0.52-1.04) mg/dL Glucose (74-99) mg/dL POC Glucose (mg/dL) 219 H 120 H 161 H (75-99) mg/dL 01/31/18 01/31/18 01/31/18 Range/Units 07:12 07:12 11:50 WBC 12.9 H (3.8-10.6) k/uL RBC 3.60 L (3.80-5.40) m/uL Hgb 9.5 L (11.4-16.0) gm/dL Hct 32.0 L (34.0-46.0) % MCHC 29.7 L (31.0-37.0) g/dL RDW 16.1 H (11.5-15.5) % Neutrophils # 10.0 H (1.3-7.7) k/uL Chloride 92 L (98-107) mmol/L Carbon Dioxide 32 H (22-30) mmol/L BUN 27 H (7-17) mg/dL Creatinine 1.08 H (0.52-1.04) mg/dL Glucose 70 L (74-99) mg/dL POC Glucose (mg/dL) 242 H (75-99) mg/dL Assessment and Plan Plan: 1. Acute on chronic hypoxic and hypercapnic respiratory failure secondary to congestive heart failure, COPD, A. fib with RVR and possible pneumonia. 2. Acute COPD exacerbation: Continue nebulizer treatments 3. Acute on chronic diastolic Congestive heart failure exacerbation: Continue IV Lasix for another 24 hours per cardiology 4. Acute tracheobronchitis with possible pneumonia currently on oral Augmentin 5. Atrial fibrillation with rapid ventricular response. History of chronic persistent atrial fibrillation area cardiology restarted Eliquis and metoprolol 6. Essential hypertension 7. Diabetes mellitus type 2: Elevated blood sugar in the 200s. Lantus 50 units at bedtime has been ordered. Continue sliding scale coverage. 8. History of lung cancer with prior left lobectomy 9. 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 Showing improvement 10. Iron deficiency anemia: Total iron of 10 and iron saturation also low at 3.36. Hemoglobin 8.4. Patient be given a dose of IV iron 11. Acute kidney injury likely related to diuretics. Now resolved. Continue to monitor. 12. Paratracheal lymph nodes: Patient will be undergoing a bronchoscopy with transbronchial needle aspirate tomorrow 13. Leukocytosis, WBC up to 15.5 patient did not receive any systemic steroids, will recheck CXR and check abdomen ultrasound Medication and labs were reviewed patient was examined Patient is improving slowly Continue current management, awaiting pulmonary decision regarding bronchoscopy , patient was restarted on Eliquis as planned for bronchoscopy was canceled yesterday, continue was current medications at this time will follow in a.m..
[2018-01-31] MEDS: NA PHOS,M-B/NA PHOS,DI-BA 133 ML ENEMA RECTAL SCH ×2 (17:07→17:58)
[2018-01-31 17:33] LABS: Glucose,Whole Blood 166 mg/dL (75-99)
--- NOTE | 2018-01-31 17:41 | P.PN ---
Subjective Progress Note Date: 01/31/18 Principal diagnosis: Acute on chronic hypoxic and hypercapnic respiratory failure, related to acute COPD exacerbation, and acute CHF with diastolic dysfunction On 01/30/2018, I'm seeing this patient for a follow-up. Overall poor status is stable. I reviewed the chest x-ray from earlier this morning and there is some volume loss in the left lower lobe at the site of the previous left lower lobe resection for lung cancer. The right lung is essentially clear. The white cell count is up to 15.5. She is having some nausea and on and off constipation. She was given milk of magnesia. I rechecked x-ray and there is no evidence of any clear pneumonia. The patient is currently on oral Augmentin. As mentioned earlier, the patient is mediastinal lymphadenopathy and a right lower lobe lesion which is very highly suggestive underlying malignancy yet I did not have the chance to bronchoscope this patient during this current hospitalization. She is looking well neurologically. She is following commands. Answering questions. No emesis. No fever or chills. No other significant events otherwise for now. On 01/31/2018 patient is seen in follow-up on medical surgical floor. Sitting up in the chair, in no acute distress. She states her breathing is easier, she has been diuresed extensively and now her IV diuretics have been transitioned to oral. Lung sounds are positive for some scattered rales over right lower base, overall there is good aeration bilaterally. She remains on 4 L per nasal cannula, with a pulse ox at 96%. She is hemodynamically stable, she is afebrile , her heart rate is controlled, she remains in A. fib. She is anticoagulated with Eliquis. Chest x-ray from 01/30/2018 showed some volume loss in the left lower lobe at the site of the previous left lower lobe resection for lung cancer. She denied any fever or chills, denied any chest pain. Her urine, blood and sputum cultures are negative to date. He remains on empiric antibiotics in the form of Rocephin. Today's blood work shows WBC trend down to 12.9, hemoglobin of 9.5, sodium of 138, potassium 4.4, chloride is 92, CO2 of 32, BUN of 27, creatinine is 1.08. Overall patient is progressing well. Continue current medical treatment, the patient and the family would like to see if the biopsy of the paratracheal lymph nodes to rule out lung cancer can be done while the patient still inpatient. However in view of patient's overall generalized weakness, poor lung function, it is decided to proceed with the bronchoscopy on an outpatient basis. Objective - Vital Signs Vital signs: Vital Signs Temp 98.1 F 01/31/18 07:15 Pulse 86 01/31/18 11:40 Resp 18 01/31/18 07:15 BP 142/65 01/31/18 07:15 Pulse Ox 96 01/31/18 07:15 Intake & Output 01/30/18 01/31/18 01/31/18 18:59 06:59 18:59 Intake Total 540 10 Output Total 200 Balance 340 10 Weight 96 kg 97 kg Intake: IV 10 0.9 NACL 10 Oral 540 Output: Urine 200 Other: Voiding Method Toilet Bedside Commode Bedside Commode # Voids 3 1 3 # Bowel Movements 0 - Exam Physical exam revealed a 72-year-old female , calm and comfortable likely distress on 4 L of oxygen by nasal cannula. HEENT: Anicteric sclerae, pink and moist conjunctivae. Extraocular movements intact, pupils are reactive to light they are round and equal. External inspection of ears and nose showed normal mucosa. Oral mucosa, soft and hard palate tongue and posterior pharynx are intact. Neck: Supple no neck masses, no JVD, no thyroid enlargement, no adenopathy. Lungs: Symmetrical expansion, Diminished breath sounds at the bases no rhonchi or wheezes, and the patient has improved aeration and diminished tract lungs bilaterally. Some scattered rales at the right lower base CVS: Irregular rate and rhythm, normal S1 and S2, no gallops, no murmur, no rubs. Abdomen: Soft, nontender, no megaly, no rebound, no guarding, positive bowel sounds. Extremities: No clubbing, no edema, no cyanosis, 2+ pulses in upper and lower extremities. Musculoskeletal: Muscle strength and tone normal. Neurologic: Alert and oriented 3, mental status is improved - Labs CBC & Chem 7: 01/31/18 07:12 01/31/18 07:12 Labs: Abnormal Lab Results - Last 24 Hours (Table) 01/29/18 01/30/18 01/30/18 Range/Units 20:28 17:27 20:32 WBC (3.8-10.6) k/uL RBC (3.80-5.40) m/uL Hgb (11.4-16.0) gm/dL Hct (34.0-46.0) % MCHC (31.0-37.0) g/dL RDW (11.5-15.5) % Neutrophils # (1.3-7.7) k/uL Chloride (98-107) mmol/L Carbon Dioxide (22-30) mmol/L BUN (7-17) mg/dL Creatinine (0.52-1.04) mg/dL Glucose (74-99) mg/dL POC Glucose (mg/dL) 219 H 120 H 161 H (75-99) mg/dL 01/31/18 01/31/18 01/31/18 Range/Units 07:12 07:12 11:50 WBC 12.9 H (3.8-10.6) k/uL RBC 3.60 L (3.80-5.40) m/uL Hgb 9.5 L (11.4-16.0) gm/dL Hct 32.0 L (34.0-46.0) % MCHC 29.7 L (31.0-37.0) g/dL RDW 16.1 H (11.5-15.5) % Neutrophils # 10.0 H (1.3-7.7) k/uL Chloride 92 L (98-107) mmol/L Carbon Dioxide 32 H (22-30) mmol/L BUN 27 H (7-17) mg/dL Creatinine 1.08 H (0.52-1.04) mg/dL Glucose 70 L (74-99) mg/dL POC Glucose (mg/dL) 242 H (75-99) mg/dL Assessment and Plan Plan: Assessment: 1 acute on top of chronic hypoxic and hypercapnic respiratory failure, with development of diffuse bilateral pulmonary infiltrates/consolidation right more than left. The patient responded nicely to diuretics in the right lung pulmonary infiltrates have completely recovered. The patient has some volume loss and chronic opacity left lung base which is probably related to a previous lobectomy for lung cancer. She is currently on oral diuretics. She was also taken off the IV Zosyn and currently she is on Augmentin which got switched to Rocephin by the primary care physician today. This change was done due to some leukocytosis was noted on today's blood work. Nevertheless, I reviewed the chest x-ray and I do not think the source of infection is the lung. 2 altered mental status, recovered and this was related to CO2 narcosis. The patient's mentation is back to normal. 3 right lower lobe pulmonary nodule measuring 2 x 1 cm in size in addition to suspicious mediastinal lymphadenopathy. Findings are quite suspicious for lung cancer 4 previous history of left lower lobe resection back in the year 2003 non-small cell lung cancer 5 chronic pleural calcification on the left lower lobe related to lobectomy 6 COPD severe with an FEV1 of 36% of predicted at baseline 7 chronic hypoxic respiratory failure maintained on oxygen 4 L/m nasal cannula 8 CHF with diastolic dysfunction 9 coronary artery disease 10 chronic atrial fibrillation maintained on long-term anticoagulation Plan The white count is trending down, patient denies any chest pain, denies any chest congestion, or sputum production. Denies any fever or chills. Continue Rocephin, microbiology remains negative thus far. Patient is still having issues with constipation, receiving milk of magnesia. Patient is requesting to have the bronchoscopy biopsy of the paratracheal lymph nodes while inpatient. However was explained to her that it is best to proceed with the bronchoscopy on outpatient basis in view of patient's marginal lung capacity, her prolonged illness, and hospitalization, and weakened state to avoid decompensation of her respiratory status and potential intubation and mechanical ventilation I performed a history & physical examination of the patient and discussed their management with my nurse practitioner, Lesly Sewell. I reviewed the nurse practitioner's note and agree with the documented findings and plan of care. Lung sounds are positive for some scattered rales over right lower lobe The findings and the impression was discussed with the patient. I attest to the documentation by the nurse practitioner. Time with Patient: Less than 30
[2018-01-31] MEDS: INSULIN DETEMIR 100 UNIT/ML 10 ML VIAL SQ SCH (20:47)
[2018-01-31 20:49] LABS: Glucose,Whole Blood 192 mg/dL (75-99)
[2018-02-01] MEDS: ONDANSETRON 4 MG/2 ML VIAL IVP PRN (02:25)
[2018-02-01] MEDS: IPRATROPIUM-ALBUTEROL 3 ML NEB INHALATION SCH ×4 (07:12→19:45)
[2018-02-01] MEDS: BUDESONIDE 1 MG/2 ML NEBU INHALATION SCH ×2 (07:12→19:45)
[2018-02-01 07:28] LABS: Glucose,Whole Blood 163 mg/dL (75-99)
[2018-02-01 07:42] LABS: Basophils % (A) 0 %; Eosinophils # (A) 0.2 k/uL (0-0.7); Eosinophils % (A) 1 %; HCT 29.9 % (34.0-46.0); HGB 9.1 gm/dL (11.4-16.0); Hypochromasia Marked; Lymphocytes # (A) 1.6 k/uL (1.0-4.8); Lymphocytes % (A) 12 %; MCH 26.4 pg (25.0-35.0); MCHC 30.3 g/dL (31.0-37.0); MCV 87.3 fL (80.0-100.0); Mean Platelet Volume 7.5; Monocytes # (A) 0.5 k/uL (0-1.0); Monocytes % (A) 4 %; Neutrophils # (A) 10.1 k/uL (1.3-7.7); Neutrophils % (A) 80 %; Platelet Count 418 k/uL (150-450); Poikilocytosis Slight; RBC 3.43 m/uL (3.80-5.40); RDW 15.8 % (11.5-15.5); WBC 12.6 k/uL (3.8-10.6)
[2018-02-01 08:05] LABS: Albumin 3.3 g/dL (3.5-5.0); Calcium 8.7 mg/dL (8.4-10.2); Potassium 4.7 mmol/L (3.5-5.1); Total Bilirubin 0.3 mg/dL (0.2-1.3)
[2018-02-01] MEDS: INSULIN ASPART 100 UNIT/ML 1 ML 10 ML VIAL SQ SCH ×5 (08:55→21:15)
[2018-02-01] MEDS: cefTRIAXone IN SWFI 1,000 MG/10 ML SYRINGE IVP SCH (08:56)
[2018-02-01] MEDS: PANTOPRAZOLE 40 MG TABLET PO SCH ×2 (09:20→17:44)
[2018-02-01] MEDS: APIXABAN 5 MG TAB PO SCH ×2 (09:21→21:15)
[2018-02-01] MEDS: METOPROLOL SUCCINATE (ER) 100 MG TAB.ER.24H PO SCH (09:21)
[2018-02-01] MEDS: DOCUSATE 100 MG CAP PO SCH (09:21)
[2018-02-01] MEDS: FERROUS SULFATE 325 MG TAB PO SCH ×2 (09:21→21:15)
[2018-02-01] MEDS: FUROSEMIDE 40 MG TAB PO SCH ×2 (09:21→15:38)
[2018-02-01] MEDS: DILTIAZEM ORAL 60 MG TAB PO SCH ×3 (09:21→21:15)
[2018-02-01] MEDS: SPIRONOLACTONE 25 MG TAB PO SCH (09:22)
[2018-02-01] MEDS: SODIUM CHLORIDE 0.9% 1,000 ML IV SCH (09:22)
[2018-02-01 11:19] LABS: Glucose,Whole Blood 156 mg/dL (75-99)
[2018-02-01] MEDS ORDERED: MAGNESIUM HYDROXIDE 2,400 MG/10 ML CUP PO PRN (13:26)
[2018-02-01] MEDS ORDERED: LACTULOSE 20 GM/30 ML CUP PO ONE ×2 (13:26→19:00)
--- NOTE | 2018-02-01 13:43 | P.PN ---
Subjective Progress Note Date: 02/01/18 This is a 72-year-old female with past medical history noted below significant for severe COPD and paroxysmal atrial fibrillation who presented to the hospital with worsening shortness of breath. Patient said that his symptoms started 2 days ago and is being getting progressively worse. Her shortness of breath is mostly exertional. She describes a nonproductive cough that is being ongoing for several days as well. There is no recent sick contact. No fevers or chills. No chest pain. Patient was evaluated in the emergency room and was found to be in atrial fibrillation with rapid ventricular response and heart rate up to 132. Patient underwent a chest x-ray showing evidence of bilateral pulmonary edema with suspected underlying pneumonia. Patient was started on a Cardizem drip and was given one-time dose of IV Lasix. She is also on antibiotic. She was noted to have some wheezing in the emergency room that resolved today. 01/24/2018 patient was transferred over to the ICU over the weekend due to worsening shortness of breath and hypoxic respiratory failure. She's currently on BiPAP. Still confused. Reports some shortness of breath. Denies any chest pain. She was having atrial fibrillation with rapid ventricular response she is scheduled for metoprolol. Chest x-ray and blood gases are showing improvement. She is on IV Lasix and IV antibiotics. Pulmonary and cardiology are following. Patient also had fever of 101.1 yesterday. She had a temp of 100.9 this morning which is down to 98.5 01/25/2018 patient currently sitting at bedside chair. She is off of BiPAP. She is on 6 L satting at 91%. Cardiology is recommending that she stays on IV Lasix for another 24 hours. Chest x-ray showing correlate for congestive heart failure, pneumonia versus atelectasis. Patient reports improvement in her cough and shortness of breath. Patient has been having elevated blood sugars. Levemir has been ordered. On 01/26/2018 patient is alert and oriented 3 she was seen in intensive care unit today she is laying in bed comfortably, she is still having significant cough with minimal sputum production, she has shortness of breath with activity , pulse ox is 94% on high flow 4 L nasal cannula, she denies any chest pain no nausea or vomiting no abdominal pain no diarrhea and no urinary symptoms. 01/27/2018 patient sitting up at bedside chair. Pulmonary service is planning on bronchoscopy with biopsy of paratracheal lymph nodes tomorrow. Eliquis has been placed on hold. Rice catheter will be removed today. She will maintain IV Lasix for another 24 hours. Patient denies any chest pain. Reporting improvement in her shortness of breath. She is down to 4 L satting at 92%. 01/28/2018 patient sitting up at bedside chair. Feeling better cough and shortness of breath has improved. Pulmonary service is planning on bronchoscopy with biopsy of paratracheal lymph nodes however this was delayed because patient had breakfast this morning. Eliquis has been placed on hold. She is maintained on IV Lasix. Patient denies any chest pain. Reporting improvement in her shortness of breath. She is down to 4 L with pulse oximetry at 92%. 01/29/2018 patient sitting up at bedside chair. Feeling better cough and shortness of breath has improved. Eliquis has been placed on hold in anticipation for bronchoscopy. She is maintained on IV Lasix. Patient denies any chest pain. Reporting improvement in her shortness of breath. She is down to 4 L with pulse oximetry at 92%. She was switched to oral Augmentin this morning however she had an episode of severe nausea lasting 2 hours, oral Augmentin is stoped and patient was started on IV Rocephin. On 01/30/2018 Patient is alert and oriented complaining of abdominal discomfort and constipation, otherwise no complaints at this time, white blood count is up to 15.5, otherwise no significant change since yesterday, at this time will give milk of magnesia for constipation, with recheck chest x-ray and check abdomen ultrasound, and continue to monitor white blood count On 01/31/2018 Patient is alert and oriented planning of constipation and abdominal discomfort complaining of shortness of breath with activity otherwise no complaints, white blood count down to 12.9 On 02/01/2018 patient is alert and oriented times 3 in no distress, complaining of abdominal bloating and abdominal pain, shortness of breath improved, she denies any chest pain, no vomiting or diarrhea, no urinary symptoms. Objective - Vital Signs Vital signs: Vital Signs Temp 97.8 F 02/01/18 07:28 Pulse 86 02/01/18 07:28 Resp 18 02/01/18 07:28 BP 136/79 04/24/18 07:28 Pulse Ox 99 02/01/18 07:28 Intake & Output 01/31/18 02/01/18 02/01/18 18:59 06:59 18:59 Weight 97.5 kg Other: Voiding Method Bedside Commode Bedside Commode # Voids 3 1 # Bowel Movements 0 2 - Exam Head normocephalic and atraumatic Neck supple no JVD no goiter Lungs clear to auscultation bilaterally no wheezing or crackles Heart irregular S1 and S2 no gallops no murmurs Abdomen is soft nontender nondistended positive bowel sounds no hepatosplenomegaly Extremities no edema no cyanosis or clubbing Neuro patient is alert and orientated, no gross focal deficit - Labs CBC & Chem 7: 02/01/18 07:20 02/01/18 07:20 Labs: Abnormal Lab Results - Last 24 Hours (Table) 01/31/18 01/31/18 02/01/18 Range/Units 17:19 20:47 07:20 WBC 12.6 H (3.8-10.6) k/uL RBC 3.43 L (3.80-5.40) m/uL Hgb 9.1 L (11.4-16.0) gm/dL Hct 29.9 L (34.0-46.0) % MCHC 30.3 L (31.0-37.0) g/dL RDW 15.8 H (11.5-15.5) % Neutrophils # 10.1 H (1.3-7.7) k/uL Chloride (98-107) mmol/L Carbon Dioxide (22-30) mmol/L BUN (7-17) mg/dL Creatinine (0.52-1.04) mg/dL Glucose (74-99) mg/dL POC Glucose (mg/dL) 166 H 192 H (75-99) mg/dL Total Protein (6.3-8.2) g/dL Albumin (3.5-5.0) g/dL 02/01/18 02/01/18 02/01/18 Range/Units 07:20 07:26 11:11 WBC (3.8-10.6) k/uL RBC (3.80-5.40) m/uL Hgb (11.4-16.0) gm/dL Hct (34.0-46.0) % MCHC (31.0-37.0) g/dL RDW (11.5-15.5) % Neutrophils # (1.3-7.7) k/uL Chloride 93 L (98-107) mmol/L Carbon Dioxide 33 H (22-30) mmol/L BUN 24 H (7-17) mg/dL Creatinine 1.06 H (0.52-1.04) mg/dL Glucose 154 H (74-99) mg/dL POC Glucose (mg/dL) 163 H 156 H (75-99) mg/dL Total Protein 6.0 L (6.3-8.2) g/dL Albumin 3.3 L (3.5-5.0) g/dL Assessment and Plan Plan: 1. Acute on chronic hypoxic and hypercapnic respiratory failure secondary to congestive heart failure, COPD, A. fib with RVR and possible pneumonia. 2. Acute COPD exacerbation: Continue nebulizer treatments 3. Acute on chronic diastolic Congestive heart failure exacerbation: Continue IV Lasix for another 24 hours per cardiology 4. Acute tracheobronchitis with possible pneumonia currently on oral Augmentin 5. Atrial fibrillation with rapid ventricular response. History of chronic persistent atrial fibrillation area cardiology restarted Eliquis and metoprolol 6. Essential hypertension 7. Diabetes mellitus type 2: Elevated blood sugar in the 200s. Lantus 50 units at bedtime has been ordered. Continue sliding scale coverage. 8. History of lung cancer with prior left lobectomy 9. 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 Showing improvement 10. Iron deficiency anemia: Total iron of 10 and iron saturation also low at 3.36. Hemoglobin 8.4. Patient be given a dose of IV iron 11. Acute kidney injury likely related to diuretics. Now resolved. Continue to monitor. 12. Paratracheal lymph nodes: Patient will be undergoing a bronchoscopy with transbronchial needle aspirate tomorrow 13. Leukocytosis, WBC up to 15.5 patient did not receive any systemic steroids, will recheck CXR and check abdomen ultrasound 14. Abdominal pain and constipation, will check CT Scan of the abdomen and pelvis Medication and labs were reviewed patient was examined Patient is improving slowly
[2018-02-01 14:02] LABS: Amylase 64 U/L (30-110); Lipase 75 U/L (23-300)
--- NOTE | 2018-02-01 14:39 | P.PN ---
Subjective Progress Note Date: 02/01/18 Principal diagnosis: Acute on chronic hypoxic and hypercapnic respiratory failure, related to acute COPD exacerbation, and acute CHF with diastolic dysfunction On 01/30/2018, I'm seeing this patient for a follow-up. Overall poor status is stable. I reviewed the chest x-ray from earlier this morning and there is some volume loss in the left lower lobe at the site of the previous left lower lobe resection for lung cancer. The right lung is essentially clear. The white cell count is up to 15.5. She is having some nausea and on and off constipation. She was given milk of magnesia. I rechecked x-ray and there is no evidence of any clear pneumonia. The patient is currently on oral Augmentin. As mentioned earlier, the patient is mediastinal lymphadenopathy and a right lower lobe lesion which is very highly suggestive underlying malignancy yet I did not have the chance to bronchoscope this patient during this current hospitalization. She is looking well neurologically. She is following commands. Answering questions. No emesis. No fever or chills. No other significant events otherwise for now. On 01/31/2018 patient is seen in follow-up on medical surgical floor. Sitting up in the chair, in no acute distress. She states her breathing is easier, she has been diuresed extensively and now her IV diuretics have been transitioned to oral. Lung sounds are positive for some scattered rales over right lower base, overall there is good aeration bilaterally. She remains on 4 L per nasal cannula, with a pulse ox at 96%. She is hemodynamically stable, she is afebrile , her heart rate is controlled, she remains in A. fib. She is anticoagulated with Eliquis. Chest x-ray from 01/30/2018 showed some volume loss in the left lower lobe at the site of the previous left lower lobe resection for lung cancer. She denied any fever or chills, denied any chest pain. Her urine, blood and sputum cultures are negative to date. He remains on empiric antibiotics in the form of Rocephin. Today's blood work shows WBC trend down to 12.9, hemoglobin of 9.5, sodium of 138, potassium 4.4, chloride is 92, CO2 of 32, BUN of 27, creatinine is 1.08. Overall patient is progressing well. Continue current medical treatment, the patient and the family would like to see if the biopsy of the paratracheal lymph nodes to rule out lung cancer can be done while the patient still inpatient. However in view of patient's overall generalized weakness, poor lung function, it is decided to proceed with the bronchoscopy on an outpatient basis. On 02/01/2018 patient seen in follow-up on medical surgical floor. Denies any acute distress, denies any worsening dyspnea, she remains on 4 L per nasal cannula with O2 sat at 97%, she is afebrile, hemodynamically stable, no acute events overnight, she was able to have 2 bowel movements today, and she is having some burning abdominal pain, however denies any acute distress. She is resting comfortably in bed, the appearance of bilateral lower extremity edema has improved, and her breathing is easier. From pulmonary standpoint patient is stable for discharge home today, she will follow-up with Dr. Ledezma in the office within 7 days, and she will need outpatient bronchoscopy with biopsies of the mediastinal lymphadenopathy highly suspicious for recurrence of lung cancer Objective - Vital Signs Vital signs: Vital Signs Temp 97.8 F 02/01/18 07:28 Pulse 86 02/01/18 07:28 Resp 18 02/01/18 07:28 BP 136/79 02/01/18 07:28 Pulse Ox 99 02/01/18 07:28 Intake & Output 01/31/18 02/01/18 02/01/18 18:59 06:59 18:59 Weight 97.5 kg Other: Voiding Method Bedside Commode Bedside Commode # Voids 3 1 # Bowel Movements 0 2 - Exam Physical exam revealed a 72-year-old female , calm and comfortable likely distress on 4 L of oxygen by nasal cannula. HEENT: Anicteric sclerae, pink and moist conjunctivae. Extraocular movements intact, pupils are reactive to light they are round and equal. External inspection of ears and nose showed normal mucosa. Oral mucosa, soft and hard palate tongue and posterior pharynx are intact. Neck: Supple no neck masses, no JVD, no thyroid enlargement, no adenopathy. Lungs: Symmetrical expansion, Diminished breath sounds at the bases no rhonchi or wheezes, and the patient has improved aeration and diminished tract lungs bilaterally. Some scattered rales at the right lower base CVS: Irregular rate and rhythm, normal S1 and S2, no gallops, no murmur, no rubs. Abdomen: Soft, nontender, no megaly, no rebound, no guarding, positive bowel sounds. Extremities: No clubbing, no edema, no cyanosis, 2+ pulses in upper and lower extremities. Musculoskeletal: Muscle strength and tone normal. Neurologic: Alert and oriented 3, mental status is improved - Labs CBC & Chem 7: 02/01/18 07:20 02/01/18 07:20 Labs: Abnormal Lab Results - Last 24 Hours (Table) 01/31/18 01/31/18 02/01/18 Range/Units 17:19 20:47 07:20 WBC 12.6 H (3.8-10.6) k/uL RBC 3.43 L (3.80-5.40) m/uL Hgb 9.1 L (11.4-16.0) gm/dL Hct 29.9 L (34.0-46.0) % MCHC 30.3 L (31.0-37.0) g/dL RDW 15.8 H (11.5-15.5) % Neutrophils # 10.1 H (1.3-7.7) k/uL Chloride (98-107) mmol/L Carbon Dioxide (22-30) mmol/L BUN (7-17) mg/dL Creatinine (0.52-1.04) mg/dL Glucose (74-99) mg/dL POC Glucose (mg/dL) 166 H 192 H (75-99) mg/dL Total Protein (6.3-8.2) g/dL Albumin (3.5-5.0) g/dL 02/01/18 02/01/18 02/01/18 Range/Units 07:20 07:26 11:11 WBC (3.8-10.6) k/uL RBC (3.80-5.40) m/uL Hgb (11.4-16.0) gm/dL Hct (34.0-46.0) % MCHC (31.0-37.0) g/dL RDW (11.5-15.5) % Neutrophils # (1.3-7.7) k/uL Chloride 93 L (98-107) mmol/L Carbon Dioxide 33 H (22-30) mmol/L BUN 24 H (7-17) mg/dL Creatinine 1.06 H (0.52-1.04) mg/dL Glucose 154 H (74-99) mg/dL POC Glucose (mg/dL) 163 H 156 H (75-99) mg/dL Total Protein 6.0 L (6.3-8.2) g/dL Albumin 3.3 L (3.5-5.0) g/dL Assessment and Plan Plan: Assessment: 1 acute on top of chronic hypoxic and hypercapnic respiratory failure, with development of diffuse bilateral pulmonary infiltrates/consolidation right more than left. The patient responded nicely to diuretics in the right lung pulmonary infiltrates have completely recovered. The patient has some volume loss and chronic opacity left lung base which is probably related to a previous lobectomy for lung cancer. She is currently on oral diuretics. She was also taken off the IV Zosyn and currently she is on Augmentin which got switched to Rocephin by the primary care physician today. This change was done due to some leukocytosis was noted on today's blood work. Nevertheless, I reviewed the chest x-ray and I do not think the source of infection is the lung. 2 altered mental status, recovered and this was related to CO2 narcosis. The patient's mentation is back to normal. 3 right lower lobe pulmonary nodule measuring 2 x 1 cm in size in addition to suspicious mediastinal lymphadenopathy. Findings are quite suspicious for lung cancer 4 previous history of left lower lobe resection back in the year 2003 non-small cell lung cancer 5 chronic pleural calcification on the left lower lobe related to lobectomy 6 COPD severe with an FEV1 of 36% of predicted at baseline 7 chronic hypoxic respiratory failure maintained on oxygen 4 L/m nasal cannula 8 CHF with diastolic dysfunction 9 coronary artery disease 10 chronic atrial fibrillation maintained on long-term anticoagulation Plan Patient is improving, her breathing is easier, no acute events overnight. No cough, chest congestion, no fever no chills no chest pain. Increase activity as tolerated. Patient can resume her Eliquis. From pulmonary standpoint she stable for discharge home today, she will need to follow up with Dr. Ledezma in the office in 7-10 days. In the bronchoscopy with biopsy of the paratracheal lymph nodes will be done on an outpatient basis. This was discussed with the patient who is in agreement with the plan of care I performed a history & physical examination of the patient and discussed their management with my nurse practitioner, Lesly Sewell. I reviewed the nurse practitioner's note and agree with the documented findings and plan of care. Lung sounds are positive for some scattered rales over right lower lobe The findings and the impression was discussed with the patient. I attest to the documentation by the nurse practitioner. Time with Patient: Less than 30
[2018-02-01] MEDS: IOPAMIDOL-300 CONTRAST 30 ML VIAL (ORAL USE) PO PRN ×2 (15:38→16:36)
[2018-02-01 17:25] LABS: Glucose,Whole Blood 161 mg/dL (75-99)
--- NOTE | 2018-02-01 18:54 | CT ---
EXAMINATION TYPE: CT abdomen pelvis wo con DATE OF EXAM: 02/01/2018 COMPARISON: NONE HISTORY: Abdominal bloating and pain CT DLP: 1403 mGycm Automated exposure control for dose reduction was used. TECHNIQUE: Helical acquisition of images was performed from the lung bases through the pelvis. FINDINGS: There is pleural and pulmonary infiltrate and atelectasis and calcification at the left lung base. Th ere is coarse interstitial density in linear density at also at right lung base with a subpleural 2 c m nodule in the lateral right lower lobe. There is no pleural effusion. Heart is enlarged. Abdominal aorta is atheromatous. Liver shows no focal defect. Spleen appears normal. There is no panc reatic mass. Gallbladder appears normal. There is no adrenal mass. Kidneys have normal size and contour. There are tiny bilateral renal calcif ications and measure up to 2 mm. There is no hydronephrosis. Ureters are not dilated. There is no ret roperitoneal adenopathy. There is retained fecal material in the left colon. Abdominal aorta is ather omatous. I see no intestinal wall thickening. There is no ascites. There is no sign of free air. Blad linda is somewhat dilated. Uterus is retroverted. There is a small uterine calcification. I see no bony destructive process. Gall bladder measures 4.1 cm. There is no sign of appendicitis. IMPRESSION: THERE IS DILATED GALLBLADDER ON THE OLD CT SCAN THAT IS MORE NORMAL IN SIZE ON TODAY'S EXAM. CONSTIPATION. NONOBSTRUCTING SMALL RENAL CALCULI. CHRONIC INFILTRATE AND ATELECTASIS AND CALCIFICATION AT THE LUNG BASES CONSISTENT WITH FIBROSIS AND S CARRING THAT IS UNCHANGED COMPARED TO LAST EXAM. CARDIOMEGALY. CHRONICALLY DILATED URINARY BLADDER CO ULD RELATE TO BLADDER OUTLET OBSTRUCTION OR NEUROGENIC BLADDER. STABLE SUBPLEURAL MASS IN THE LATERAL RIGHT LOWER LOBE.
[2018-02-01 20:28] LABS: Glucose,Whole Blood 226 mg/dL (75-99)
[2018-02-01] MEDS: INSULIN DETEMIR 100 UNIT/ML 10 ML VIAL SQ SCH (21:15)
[2018-02-02] MEDS: IPRATROPIUM-ALBUTEROL 3 ML NEB INHALATION SCH ×4 (07:20→19:57)
[2018-02-02] MEDS: BUDESONIDE 1 MG/2 ML NEBU INHALATION SCH ×2 (07:20→19:57)
[2018-02-02 07:50] LABS: Glucose,Whole Blood 137 mg/dL (75-99)
[2018-02-02] MEDS: FUROSEMIDE 40 MG TAB PO SCH ×2 (08:25→15:44)
[2018-02-02] MEDS: METOPROLOL SUCCINATE (ER) 100 MG TAB.ER.24H PO SCH (08:25)
[2018-02-02] MEDS: PANTOPRAZOLE 40 MG TABLET PO SCH ×2 (08:25→17:21)
[2018-02-02] MEDS: DOCUSATE 100 MG CAP PO SCH (08:25)
[2018-02-02] MEDS: FERROUS SULFATE 325 MG TAB PO SCH ×2 (08:25→20:59)
[2018-02-02] MEDS: INSULIN ASPART 100 UNIT/ML 1 ML 10 ML VIAL SQ SCH ×4 (08:25→20:59)
[2018-02-02] MEDS: SPIRONOLACTONE 25 MG TAB PO SCH (08:25)
[2018-02-02] MEDS: DILTIAZEM ORAL 60 MG TAB PO SCH ×3 (08:25→20:59)
[2018-02-02] MEDS: APIXABAN 5 MG TAB PO SCH ×2 (08:25→20:59)
[2018-02-02] MEDS: cefTRIAXone IN SWFI 1,000 MG/10 ML SYRINGE IVP SCH (08:26)
[2018-02-02] MEDS: SODIUM CHLORIDE 0.9% 1,000 ML IV SCH (08:26)
[2018-02-02 08:32] LABS: Basophils % (A) 0 %; Eosinophils # (A) 0.1 k/uL (0-0.7); Eosinophils % (A) 1 %; HCT 31.5 % (34.0-46.0); HGB 9.6 gm/dL (11.4-16.0); Hypochromasia Marked; Lymphocytes # (A) 2.3 k/uL (1.0-4.8); Lymphocytes % (A) 19 %; MCH 26.4 pg (25.0-35.0); MCHC 30.5 g/dL (31.0-37.0); MCV 86.6 fL (80.0-100.0); Mean Platelet Volume 7.4; Monocytes # (A) 0.6 k/uL (0-1.0); Monocytes % (A) 5 %; Neutrophils # (A) 9.2 k/uL (1.3-7.7); Neutrophils % (A) 73 %; Platelet Count 414 k/uL (150-450); Poikilocytosis Slight; RBC 3.64 m/uL (3.80-5.40); RDW 15.9 % (11.5-15.5); WBC 12.5 k/uL (3.8-10.6)
[2018-02-02 08:42] LABS: Albumin 3.5 g/dL (3.5-5.0); Calcium 9.3 mg/dL (8.4-10.2); Potassium 4.6 mmol/L (3.5-5.1); Total Bilirubin 0.3 mg/dL (0.2-1.3); Total Protein 6.3 g/dL (6.3-8.2)
[2018-02-02 11:52] LABS: Glucose,Whole Blood 165 mg/dL (75-99)
--- NOTE | 2018-02-02 12:59 | P.PN ---
Subjective Progress Note Date: 02/02/18 Principal diagnosis: Acute on chronic hypoxic and hypercapnic respiratory failure, related to acute COPD exacerbation, and acute CHF with diastolic dysfunction On 01/30/2018, I'm seeing this patient for a follow-up. Overall poor status is stable. I reviewed the chest x-ray from earlier this morning and there is some volume loss in the left lower lobe at the site of the previous left lower lobe resection for lung cancer. The right lung is essentially clear. The white cell count is up to 15.5. She is having some nausea and on and off constipation. She was given milk of magnesia. I rechecked x-ray and there is no evidence of any clear pneumonia. The patient is currently on oral Augmentin. As mentioned earlier, the patient is mediastinal lymphadenopathy and a right lower lobe lesion which is very highly suggestive underlying malignancy yet I did not have the chance to bronchoscope this patient during this current hospitalization. She is looking well neurologically. She is following commands. Answering questions. No emesis. No fever or chills. No other significant events otherwise for now. On 01/31/2018 patient is seen in follow-up on medical surgical floor. Sitting up in the chair, in no acute distress. She states her breathing is easier, she has been diuresed extensively and now her IV diuretics have been transitioned to oral. Lung sounds are positive for some scattered rales over right lower base, overall there is good aeration bilaterally. She remains on 4 L per nasal cannula, with a pulse ox at 96%. She is hemodynamically stable, she is afebrile , her heart rate is controlled, she remains in A. fib. She is anticoagulated with Eliquis. Chest x-ray from 01/30/2018 showed some volume loss in the left lower lobe at the site of the previous left lower lobe resection for lung cancer. She denied any fever or chills, denied any chest pain. Her urine, blood and sputum cultures are negative to date. He remains on empiric antibiotics in the form of Rocephin. Today's blood work shows WBC trend down to 12.9, hemoglobin of 9.5, sodium of 138, potassium 4.4, chloride is 92, CO2 of 32, BUN of 27, creatinine is 1.08. Overall patient is progressing well. Continue current medical treatment, the patient and the family would like to see if the biopsy of the paratracheal lymph nodes to rule out lung cancer can be done while the patient still inpatient. However in view of patient's overall generalized weakness, poor lung function, it is decided to proceed with the bronchoscopy on an outpatient basis. On 02/01/2018 patient seen in follow-up on medical surgical floor. Denies any acute distress, denies any worsening dyspnea, she remains on 4 L per nasal cannula with O2 sat at 97%, she is afebrile, hemodynamically stable, no acute events overnight, she was able to have 2 bowel movements today, and she is having some burning abdominal pain, however denies any acute distress. She is resting comfortably in bed, the appearance of bilateral lower extremity edema has improved, and her breathing is easier. From pulmonary standpoint patient is stable for discharge home today, she will follow-up with Dr. Ledezma in the office within 7 days, and she will need outpatient bronchoscopy with biopsies of the mediastinal lymphadenopathy highly suspicious for recurrence of lung cancer On 02/02/2018 patient seen in follow-up. Her breathing continues to improve, denies any increasing dyspnea, denies any chest pain or chest congestion. Her FiO2 is down to 3 L per nasal cannula and her pulse ox is 92%, she is afebrile, vital signs are stable. No new chest x-ray today, today's labs show WBC of 12.5 , hemoglobin is 9.6, sodium is 136, chloride is 92, CO2 is 33, B1 is 23, creatinine 0.95. Patient remains on empiric antibiotic no form of Rocephin, and oral Lasix, and with nebulized bronchodilators. Her active issue is her abdominal distention, and constipation. Abdomen/pelvis CT showed retained fecal material in the left colon, but no intestinal wall thickening, no ascites , no evidence of free air. Gallbladder was within normal limits, and there was a small nonobstructing renal calculi. Objective - Vital Signs Vital signs: Vital Signs Temp 98.0 F 02/02/18 07:38 Pulse 70 02/02/18 11:40 Resp 16 02/02/18 07:38 BP 141/63 02/02/18 07:38 Pulse Ox 92 L 02/02/18 07:38 Intake & Output 02/01/18 02/02/18 02/02/18 18:59 06:59 18:59 Intake Total 600 Balance 600 Intake: Oral 600 Other: Voiding Method Bedside Commode # Voids 3 - Exam Physical exam revealed a 72-year-old female , calm and comfortable likely distress on 4 L of oxygen by nasal cannula. HEENT: Anicteric sclerae, pink and moist conjunctivae. Extraocular movements intact, pupils are reactive to light they are round and equal. External inspection of ears and nose showed normal mucosa. Oral mucosa, soft and hard palate tongue and posterior pharynx are intact. Neck: Supple no neck masses, no JVD, no thyroid enlargement, no adenopathy. Lungs: Symmetrical expansion, Diminished breath sounds at the bases no rhonchi or wheezes, and the patient has improved aeration and diminished tract lungs bilaterally. Some scattered rales at the right lower base CVS: Irregular rate and rhythm, normal S1 and S2, no gallops, no murmur, no rubs. Abdomen: Soft, somewhat distended, nontender, no organomegaly, no rebound, no guarding, positive bowel sounds. Extremities: No clubbing, no edema, no cyanosis, 2+ pulses in upper and lower extremities. Musculoskeletal: Muscle strength and tone normal. Neurologic: Alert and oriented 3, mental status is improved - Labs CBC & Chem 7: 02/02/18 07:54 02/02/18 07:54 Labs: Abnormal Lab Results - Last 24 Hours (Table) 02/01/18 02/01/18 02/02/18 Range/Units 17:24 20:27 07:39 WBC (3.8-10.6) k/uL RBC (3.80-5.40) m/uL Hgb (11.4-16.0) gm/dL Hct (34.0-46.0) % MCHC (31.0-37.0) g/dL RDW (11.5-15.5) % Neutrophils # (1.3-7.7) k/uL Sodium (137-145) mmol/L Chloride (98-107) mmol/L Carbon Dioxide (22-30) mmol/L BUN (7-17) mg/dL Glucose (74-99) mg/dL POC Glucose (mg/dL) 161 H 226 H 137 H (75-99) mg/dL 02/02/18 02/02/18 02/02/18 Range/Units 07:54 07:54 11:35 WBC 12.5 H (3.8-10.6) k/uL RBC 3.64 L (3.80-5.40) m/uL Hgb 9.6 L (11.4-16.0) gm/dL Hct 31.5 L (34.0-46.0) % MCHC 30.5 L (31.0-37.0) g/dL RDW 15.9 H (11.5-15.5) % Neutrophils # 9.2 H (1.3-7.7) k/uL Sodium 136 L (137-145) mmol/L Chloride 92 L (98-107) mmol/L Carbon Dioxide 33 H (22-30) mmol/L BUN 23 H (7-17) mg/dL Glucose 111 H (74-99) mg/dL POC Glucose (mg/dL) 165 H (75-99) mg/dL Assessment and Plan Plan: Assessment: 1 acute on top of chronic hypoxic and hypercapnic respiratory failure, with development of diffuse bilateral pulmonary infiltrates/consolidation right more than left. The patient responded nicely to diuretics in the right lung pulmonary infiltrates have completely recovered. The patient has some volume loss and chronic opacity left lung base which is probably related to a previous lobectomy for lung cancer. She is currently on oral diuretics. She was also taken off the IV Zosyn and currently she is on Augmentin which got switched to Rocephin by the primary care physician today. This change was done due to some leukocytosis was noted on today's blood work. Nevertheless, I reviewed the chest x-ray and I do not think the source of infection is the lung. 2 altered mental status, recovered and this was related to CO2 narcosis. The patient's mentation is back to normal. 3 right lower lobe pulmonary nodule measuring 2 x 1 cm in size in addition to suspicious mediastinal lymphadenopathy. Findings are quite suspicious for lung cancer 4 previous history of left lower lobe resection back in the year 2003 non-small cell lung cancer 5 chronic pleural calcification on the left lower lobe related to lobectomy 6 COPD severe with an FEV1 of 36% of predicted at baseline 7 chronic hypoxic respiratory failure maintained on oxygen 4 L/m nasal cannula 8 CHF with diastolic dysfunction 9 coronary artery disease 10 chronic atrial fibrillation maintained on long-term anticoagulation Plan Patient is breathing continues to improve, FiO2 down to 3 L, she denies any chest pain, worsening dyspnea or congestion. She is on oral Lasix, she is on empiric antibiotics in the form of Rocephin. Her vital signs are stable. Her active issue at this time is her constipation, and the patient is receiving oral lactulose. CT abdomen and pelvis was reviewed, and showed retained fecal material. She remains stable from pulmonary standpoint, and can be discharged home once cleared by her attending physician. I performed a history & physical examination of the patient and discussed their management with my nurse practitioner, Lesly Sewell. I reviewed the nurse practitioner's note and agree with the documented findings and plan of care. Lung sounds are positive for some scattered rales over right lower lobe The findings and the impression was discussed with the patient. I attest to the documentation by the nurse practitioner. Time with Patient: Less than 30
--- NOTE | 2018-02-02 13:59 | P.CONS ---
History of Present Illness - Reason for Consult Consult date: 02/02/18 abdominal pain Requesting physician: Ramonita Sorenson - History of Present Illness 72-year-old female admitted 12 days ago with shortness of breath A. fib with RVR , pulmonary edema possible pneumonia. History of diabetes, NSC lung carcinoma with prior left lobectomy, paroxysmal atrial fibrillation mainatained on Eliquis and severe COPD O2 dependent. Recent CT reported a 2 x 1 cm right lower lobe pleural-based lesion scattered pulmonary nodules and mediastinal lymphadenopathy suspicious for secondary primary lung cancer. Possible bronchoscopy is being considered by the pulmonary service. Presently receiving antibiotics. Consult requested for abdominal pain. She has been constipated was provided some laxative with a few bowel movements over the last 24 hours. She is reporting diffuse generalized abdominal pain across the entire mid abdomen. Ultrasound abdomen enlarged liver 22.7 cm. CBD 0.8 cm. Gallbladder sludge noted. Normal liver function tests. CT abdomen and pelvis yesterday reported dilated gallbladder but stable compared to previous exam. Constipation. Nonobstructing small renal calculi. Right lower lobe lung subpleural mass. Today white count is 12.5. Hemoglobin 9.6. Last colonoscopy was several years ago. She denies hematemesis hematochezia melena. Review of Systems Constitutional: Denies fever, chills, sweats, weight gain, or loss. HEENT: Negative for migraines, blurred vision or loss, earaches, drainage, tinnitus, oral mucosal lesions, dysphagia, or odynophagia. CARDIAC: History of CHF. Hyperlipidemia. Hypertension. Negative for chest pain, history of atrial fibrillation, or palpitation. RESPIRATORY: Chronic shortness of breath O2 dependent history of lung carcinoma , hemoptysis, cough, or sputum production. GI: See HPI for pertinent findings. : Negative for hematuria, urgency, frequency, polyuria, or dysuria. GYNc: Denies possibility of . Negative vaginal discharge. MUSCULOSKELETAL: Negative for muscle aches, swelling, arthritis, and arthralgias. NEUROLOGIC: Negative for stroke or TIA. ENDOCRINE: History of diabetes mellitus. Negative for thyroid problems. SKIN: Negative for rash or itching. PSYCHIATRIC: Negative history for depression and anxiety Past Medical History Past Medical History: Atrial Fibrillation, Heart Failure, COPD, Diabetes Mellitus, Hyperlipidemia, Hypertension, Memory Impairment Additional Past Medical History / Comment(s): COPD severe with an FEV1 of 36%, chronic hypoxic respiratory failure, non-small cell lung cancer with a previous left lower lobe resection, chronic atrial fibrillation, hypertension, coronary artery disease, diabetes mellitus, meningitis back in the 70s History of Any Multi-Drug Resistant Organisms: None Reported Past Surgical History: Heart Catheterization With Stent, Tubal Ligation Additional Past Surgical History / Comment(s): Left lower lobe lung removed, right shoulder rotator cuff. Past Anesthesia/Blood Transfusion Reactions: No Reported Reaction Additional Past Anesthesia/Blood Transfusion Reaction / Comm: Claustrophobia Date of Last Stent Placement:: unk Past Psychological History: No Psychological Hx Reported Smoking Status: Former smoker Past Alcohol Use History: None Reported Past Drug Use History: None Reported - Past Family History Mother History Unknown: Yes Family Medical History: No Reported History Father Family Medical History: Diabetes Mellitus Medications and Allergies Home Medications Medication Instructions Recorded Confirmed Type Atorvastatin [Lipitor] 40 mg PO HS 11/17/16 01/21/18 History Cholecalciferol [Vitamin D3] 4,000 unit PO DAILY 11/17/16 01/21/18 History Cyanocobalamin [Vitamin B-12] 500 mcg PO DAILY 11/17/16 01/21/18 History Fluticasone/Salmeterol [Advair 1 puff INHALATION RT-BID 11/17/16 01/21/18 History 250-50 Diskus] Glimepiride [Amaryl] 4 mg PO AC-BID 11/17/16 01/21/18 History Insulin Aspart [NovoLOG Flexpen] 20 units SQ AC-TID 11/17/16 01/21/18 History Insulin Degludec [Tresiba 98 unit SQ DAILY 11/17/16 01/21/18 History Flextouch U-200] Albuterol Inhaler [Ventolin Hfa 2 puff INHALATION RT-BID 07/22/17 01/21/18 History Inhaler] Loratadine [Claritin] 10 mg PO DAILY 07/22/17 01/21/18 History metFORMIN HCL [Glucophage] 500 mg PO BID 07/22/17 01/21/18 History Apixaban [Eliquis] 5 mg PO BID #60 tab 08/02/17 01/21/18 Rx Losartan [Cozaar] 100 mg PO DAILY #30 tab 08/02/17 01/21/18 Rx Spironolactone [Aldactone] 25 mg PO DAILY #30 tab 08/02/17 01/21/18 Rx Furosemide [Lasix] 40 mg PO BID 12/31/17 01/21/18 History Pantoprazole Sodium [Protonix] 40 mg PO BID #60 tablet.dr 01/05/18 01/21/18 Rx Acetaminophen Tab [Tylenol] 1,000 mg PO Q6HR PRN tab 02/01/18 Rx Diltiazem Oral [Cardizem*] 60 mg PO TID tab 02/01/18 Rx Docusate [Colace] 100 mg PO DAILY cap 02/01/18 Rx Ferrous Sulfate [Iron (65 MG 325 mg PO BID tab 02/01/18 Rx Elemental)] Ipratropium-Albuterol Nebulize 3 ml INHALATION RT-Q2H PRN 02/01/18 Rx [Duoneb 0.5 mg-3 mg/3 ml Soln] ampul.neb Ipratropium-Albuterol Nebulize 3 ml INHALATION RT-QID ampul.neb 02/01/18 Rx [Duoneb 0.5 mg-3 mg/3 ml Soln] Metoprolol Succinate (ER) [Toprol 100 mg PO DAILY tab.er.24h 02/01/18 Rx XL] Allergies Allergy/AdvReac Type Severity Reaction Status Date / Time codeine Allergy Unknown Verified 01/21/18 13:13 Physical Exam Vitals: Vital Signs Temp Pulse Pulse Resp BP Pulse Ox 02/02/18 11:40 70 02/02/18 11:30 69 02/02/18 07:38 98.0 F 81 16 141/63 92 L 02/02/18 07:35 68 02/02/18 07:21 68 02/01/18 20:30 98.7 F 67 18 141/64 96 02/01/18 19:55 68 02/01/18 19:45 68 02/01/18 15:53 63 02/01/18 15:43 59 L 18 02/01/18 14:20 98.4 F 78 16 130/62 96 Intake and Output 02/01/18 02/02/18 02/02/18 22:59 06:59 14:59 Other: Voiding Method Bedside Commode # Voids 1 3 General appearance: The patient is alert, oriented, in no acute distress. HET: Head is normocephalic and atraumatic. Pupils are equal and reactive. Oropharynx is clear without lesions. Neck: Supple without lymphadenopathy. Trachea midline. Heart: S1 S2. Regular rate and rhythm. Lungs: No crackles or wheezes are heard. Abdomen: Soft, bloated diffuse mild tenderness across mid abdomen with bowel sounds. No peritoneal signs. No palpable organomegaly or masses. Extremities: Normal skin color and turgor. No cyanosis, rash, ulceration, clubbing, or edema. Radial and pedal pulses are 2/4 bilaterally. Neurological: No focal deficits. Strength and sensation are grossly intact. Results CBC & Chem 7: 02/02/18 07:54 02/02/18 07:54 Labs: Abnormal Lab Results - Last 24 Hours (Table) 02/01/18 02/01/18 02/02/18 Range/Units 17:24 20:27 07:39 WBC (3.8-10.6) k/uL RBC (3.80-5.40) m/uL Hgb (11.4-16.0) gm/dL Hct (34.0-46.0) % MCHC (31.0-37.0) g/dL RDW (11.5-15.5) % Neutrophils # (1.3-7.7) k/uL Sodium (137-145) mmol/L Chloride (98-107) mmol/L Carbon Dioxide (22-30) mmol/L BUN (7-17) mg/dL Glucose (74-99) mg/dL POC Glucose (mg/dL) 161 H 226 H 137 H (75-99) mg/dL 02/02/18 02/02/18 02/02/18 Range/Units 07:54 07:54 11:35 WBC 12.5 H (3.8-10.6) k/uL RBC 3.64 L (3.80-5.40) m/uL Hgb 9.6 L (11.4-16.0) gm/dL Hct 31.5 L (34.0-46.0) % MCHC 30.5 L (31.0-37.0) g/dL RDW 15.9 H (11.5-15.5) % Neutrophils # 9.2 H (1.3-7.7) k/uL Sodium 136 L (137-145) mmol/L Chloride 92 L (98-107) mmol/L Carbon Dioxide 33 H (22-30) mmol/L BUN 23 H (7-17) mg/dL Glucose 111 H (74-99) mg/dL POC Glucose (mg/dL) 165 H (75-99) mg/dL CT scan - abdomen: report reviewed (Dr. Collins) Assessment and Plan (1) Abdominal pain Narrative/Plan: 72-year-old female with a history of severe COPD O2 dependent and prior history of lung carcinoma presents 12 days ago with shortness of breath A. fib with RVR maintained on Eliquis pulmonary edema possible pneumonia with underlying constipation. Recent CT imaging reported right lower lobe subpleural mass possible malignancy, pulmonology service currently evaluating. Etiology of abdominal pain could be related to constipation however other colonic pathology cannot be entirely excluded last colonoscopy screening several years ago. Current Visit: No Status: Acute Code(s): R10.9 - UNSPECIFIED ABDOMINAL PAIN SNOMED Code(s): 68099897 Plan: 1. Continue with stool softeners/laxatives and light diet as needed/tolerated. 2. Inpatient endoscopic exams not planned at this time. Patient will require pulmonary clearance and presently receiving anticoagulation for her history of atrial fibrillation. Outpatient colonoscopy advised. RTO 1-2 weeks after discharge for reevaluation. 3. We'll continue to follow closely with you. Thank you for this kind referral and the opportunity to participate in the care of your patient. This consultation was discussed with Dr. Collins. The impression and plan of care have been directed as dictated.
--- NOTE | 2018-02-02 14:25 | P.PN ---
Subjective Progress Note Date: 02/02/18 This is a 72-year-old female with past medical history noted below significant for severe COPD and paroxysmal atrial fibrillation who presented to the hospital with worsening shortness of breath. Patient said that his symptoms started 2 days ago and is being getting progressively worse. Her shortness of breath is mostly exertional. She describes a nonproductive cough that is being ongoing for several days as well. There is no recent sick contact. No fevers or chills. No chest pain. Patient was evaluated in the emergency room and was found to be in atrial fibrillation with rapid ventricular response and heart rate up to 132. Patient underwent a chest x-ray showing evidence of bilateral pulmonary edema with suspected underlying pneumonia. Patient was started on a Cardizem drip and was given one-time dose of IV Lasix. She is also on antibiotic. She was noted to have some wheezing in the emergency room that resolved today. 01/24/2018 patient was transferred over to the ICU over the weekend due to worsening shortness of breath and hypoxic respiratory failure. She's currently on BiPAP. Still confused. Reports some shortness of breath. Denies any chest pain. She was having atrial fibrillation with rapid ventricular response she is scheduled for metoprolol. Chest x-ray and blood gases are showing improvement. She is on IV Lasix and IV antibiotics. Pulmonary and cardiology are following. Patient also had fever of 101.1 yesterday. She had a temp of 100.9 this morning which is down to 98.5 01/25/2018 patient currently sitting at bedside chair. She is off of BiPAP. She is on 6 L satting at 91%. Cardiology is recommending that she stays on IV Lasix for another 24 hours. Chest x-ray showing correlate for congestive heart failure, pneumonia versus atelectasis. Patient reports improvement in her cough and shortness of breath. Patient has been having elevated blood sugars. Levemir has been ordered. On 01/26/2018 patient is alert and oriented 3 she was seen in intensive care unit today she is laying in bed comfortably, she is still having significant cough with minimal sputum production, she has shortness of breath with activity , pulse ox is 94% on high flow 4 L nasal cannula, she denies any chest pain no nausea or vomiting no abdominal pain no diarrhea and no urinary symptoms. 01/27/2018 patient sitting up at bedside chair. Pulmonary service is planning on bronchoscopy with biopsy of paratracheal lymph nodes tomorrow. Eliquis has been placed on hold. Rice catheter will be removed today. She will maintain IV Lasix for another 24 hours. Patient denies any chest pain. Reporting improvement in her shortness of breath. She is down to 4 L satting at 92%. 01/28/2018 patient sitting up at bedside chair. Feeling better cough and shortness of breath has improved. Pulmonary service is planning on bronchoscopy with biopsy of paratracheal lymph nodes however this was delayed because patient had breakfast this morning. Eliquis has been placed on hold. She is maintained on IV Lasix. Patient denies any chest pain. Reporting improvement in her shortness of breath. She is down to 4 L with pulse oximetry at 92%. 01/29/2018 patient sitting up at bedside chair. Feeling better cough and shortness of breath has improved. Eliquis has been placed on hold in anticipation for bronchoscopy. She is maintained on IV Lasix. Patient denies any chest pain. Reporting improvement in her shortness of breath. She is down to 4 L with pulse oximetry at 92%. She was switched to oral Augmentin this morning however she had an episode of severe nausea lasting 2 hours, oral Augmentin is stoped and patient was started on IV Rocephin. On 01/30/2018 Patient is alert and oriented complaining of abdominal discomfort and constipation, otherwise no complaints at this time, white blood count is up to 15.5, otherwise no significant change since yesterday, at this time will give milk of magnesia for constipation, with recheck chest x-ray and check abdomen ultrasound, and continue to monitor white blood count On 01/31/2018 Patient is alert and oriented planning of constipation and abdominal discomfort complaining of shortness of breath with activity otherwise no complaints, white blood count down to 12.9 On 02/01/2018 patient is alert and oriented times 3 in no distress, complaining of abdominal bloating and abdominal pain, shortness of breath improved, she denies any chest pain, no vomiting or diarrhea, no urinary symptoms. On 02/02/2018 patient is alert and oriented 3 she is mostly complaining of abdominal pain and abdominal distention her shortness of breath and cough have improved she denies any chest pain there is no nausea or vomiting no diarrhea she states she is constipated she has no urinary symptoms Objective - Vital Signs Vital signs: Vital Signs Temp 98.0 F 02/02/18 07:38 Pulse 70 02/02/18 11:40 Resp 16 02/02/18 07:38 BP 141/63 02/02/18 07:38 Pulse Ox 92 L 02/02/18 07:38 Intake & Output 02/01/18 02/02/18 02/02/18 18:59 06:59 18:59 Intake Total 600 Balance 600 Intake: Oral 600 Other: Voiding Method Bedside Commode # Voids 3 - Exam Head normocephalic and atraumatic Neck supple no JVD no goiter Lungs clear to auscultation bilaterally no wheezing or crackles Heart irregular S1 and S2 no gallops no murmurs Abdomen is soft nontender nondistended positive bowel sounds no hepatosplenomegaly Extremities no edema no cyanosis or clubbing Neuro patient is alert and orientated, no gross focal deficit - Labs CBC & Chem 7: 02/02/18 07:54 02/02/18 07:54 Labs: Abnormal Lab Results - Last 24 Hours (Table) 02/01/18 02/01/18 02/02/18 Range/Units 17:24 20:27 07:39 WBC (3.8-10.6) k/uL RBC (3.80-5.40) m/uL Hgb (11.4-16.0) gm/dL Hct (34.0-46.0) % MCHC (31.0-37.0) g/dL RDW (11.5-15.5) % Neutrophils # (1.3-7.7) k/uL Sodium (137-145) mmol/L Chloride (98-107) mmol/L Carbon Dioxide (22-30) mmol/L BUN (7-17) mg/dL Glucose (74-99) mg/dL POC Glucose (mg/dL) 161 H 226 H 137 H (75-99) mg/dL 02/02/18 02/02/18 02/02/18 Range/Units 07:54 07:54 11:35 WBC 12.5 H (3.8-10.6) k/uL RBC 3.64 L (3.80-5.40) m/uL Hgb 9.6 L (11.4-16.0) gm/dL Hct 31.5 L (34.0-46.0) % MCHC 30.5 L (31.0-37.0) g/dL RDW 15.9 H (11.5-15.5) % Neutrophils # 9.2 H (1.3-7.7) k/uL Sodium 136 L (137-145) mmol/L Chloride 92 L (98-107) mmol/L Carbon Dioxide 33 H (22-30) mmol/L BUN 23 H (7-17) mg/dL Glucose 111 H (74-99) mg/dL POC Glucose (mg/dL) 165 H (75-99) mg/dL Assessment and Plan Plan: 1. Acute on chronic hypoxic and hypercapnic respiratory failure secondary to congestive heart failure, COPD, A. fib with RVR and possible pneumonia. 2. Acute COPD exacerbation: Continue nebulizer treatments 3. Acute on chronic diastolic Congestive heart failure exacerbation: Continue IV Lasix for another 24 hours per cardiology 4. Acute tracheobronchitis with possible pneumonia currently on oral Augmentin 5. Atrial fibrillation with rapid ventricular response. History of chronic persistent atrial fibrillation area cardiology restarted Eliquis and metoprolol 6. Essential hypertension 7. Diabetes mellitus type 2: Elevated blood sugar in the 200s. Lantus 50 units at bedtime has been ordered. Continue sliding scale coverage. 8. History of lung cancer with prior left lobectomy 9. 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 Showing improvement 10. Iron deficiency anemia: Total iron of 10 and iron saturation also low at 3.36. Hemoglobin 8.4. Patient be given a dose of IV iron 11. Acute kidney injury likely related to diuretics. Now resolved. Continue to monitor. 12. Paratracheal lymph nodes: Patient will be undergoing a bronchoscopy with transbronchial needle aspirate tomorrow 13. Leukocytosis, WBC up to 15.5 patient did not receive any systemic steroids, will recheck CXR and check abdomen ultrasound 14. Abdominal pain and constipation, will check CT Scan of the abdomen and pelvis Medication and labs were reviewed patient was seen and examined Computed tomography scan of the abdomen and pelvis review Awaiting gastroenterology input Patient will be given Fleet enemas again today
[2018-02-02] MEDS: NA PHOS,M-B/NA PHOS,DI-BA 133 ML ENEMA RECTAL SCH ×2 (15:44→17:20)
[2018-02-02 16:56] LABS: Glucose,Whole Blood 112 mg/dL (75-99)
[2018-02-02 20:36] LABS: Glucose,Whole Blood 154 mg/dL (75-99)
[2018-02-02] MEDS: SENNOSIDES-DOCUSATE SODIUM 1 EACH TAB PO SCH (20:59)
[2018-02-02] MEDS: INSULIN DETEMIR 100 UNIT/ML 10 ML VIAL SQ SCH (20:59)
[2018-02-03 07:18] LABS: Glucose,Whole Blood 75 mg/dL (75-99)
[2018-02-03] MEDS: BUDESONIDE 1 MG/2 ML NEBU INHALATION SCH (07:42)
[2018-02-03] MEDS: IPRATROPIUM-ALBUTEROL 3 ML NEB INHALATION SCH ×3 (07:42→15:40)
[2018-02-03] MEDS: INSULIN ASPART 100 UNIT/ML 1 ML 10 ML VIAL SQ SCH ×2 (08:24→12:16)
[2018-02-03] MEDS: DILTIAZEM ORAL 60 MG TAB PO SCH (08:27)
[2018-02-03] MEDS: APIXABAN 5 MG TAB PO SCH (08:27)
[2018-02-03] MEDS: FERROUS SULFATE 325 MG TAB PO SCH (08:27)
[2018-02-03] MEDS: SPIRONOLACTONE 25 MG TAB PO SCH (08:27)
[2018-02-03] MEDS: SENNOSIDES-DOCUSATE SODIUM 1 EACH TAB PO SCH (08:27)
[2018-02-03] MEDS: FUROSEMIDE 40 MG TAB PO SCH (08:27)
[2018-02-03] MEDS: METOPROLOL SUCCINATE (ER) 100 MG TAB.ER.24H PO SCH (08:27)
[2018-02-03] MEDS: PANTOPRAZOLE 40 MG TABLET PO SCH (08:27)
[2018-02-03] MEDS: cefTRIAXone IN SWFI 1,000 MG/10 ML SYRINGE IVP SCH (08:28)
[2018-02-03] MEDS: ONDANSETRON 4 MG/2 ML VIAL IVP PRN (10:24)
[2018-02-03 10:29] VITALS: BMI 31.1
[2018-02-03 11:28] LABS: Glucose,Whole Blood 105 mg/dL (75-99)
--- NOTE | 2018-02-03 11:35 | P.PN ---
Subjective Progress Note Date: 02/03/18 Principal diagnosis: Acute on chronic hypoxic and hypercapnic respiratory failure, related to acute COPD exacerbation, and acute CHF with diastolic dysfunction On 01/30/2018, I'm seeing this patient for a follow-up. Overall poor status is stable. I reviewed the chest x-ray from earlier this morning and there is some volume loss in the left lower lobe at the site of the previous left lower lobe resection for lung cancer. The right lung is essentially clear. The white cell count is up to 15.5. She is having some nausea and on and off constipation. She was given milk of magnesia. I rechecked x-ray and there is no evidence of any clear pneumonia. The patient is currently on oral Augmentin. As mentioned earlier, the patient is mediastinal lymphadenopathy and a right lower lobe lesion which is very highly suggestive underlying malignancy yet I did not have the chance to bronchoscope this patient during this current hospitalization. She is looking well neurologically. She is following commands. Answering questions. No emesis. No fever or chills. No other significant events otherwise for now. On 01/31/2018 patient is seen in follow-up on medical surgical floor. Sitting up in the chair, in no acute distress. She states her breathing is easier, she has been diuresed extensively and now her IV diuretics have been transitioned to oral. Lung sounds are positive for some scattered rales over right lower base, overall there is good aeration bilaterally. She remains on 4 L per nasal cannula, with a pulse ox at 96%. She is hemodynamically stable, she is afebrile , her heart rate is controlled, she remains in A. fib. She is anticoagulated with Eliquis. Chest x-ray from 01/30/2018 showed some volume loss in the left lower lobe at the site of the previous left lower lobe resection for lung cancer. She denied any fever or chills, denied any chest pain. Her urine, blood and sputum cultures are negative to date. He remains on empiric antibiotics in the form of Rocephin. Today's blood work shows WBC trend down to 12.9, hemoglobin of 9.5, sodium of 138, potassium 4.4, chloride is 92, CO2 of 32, BUN of 27, creatinine is 1.08. Overall patient is progressing well. Continue current medical treatment, the patient and the family would like to see if the biopsy of the paratracheal lymph nodes to rule out lung cancer can be done while the patient still inpatient. However in view of patient's overall generalized weakness, poor lung function, it is decided to proceed with the bronchoscopy on an outpatient basis. On 02/01/2018 patient seen in follow-up on medical surgical floor. Denies any acute distress, denies any worsening dyspnea, she remains on 4 L per nasal cannula with O2 sat at 97%, she is afebrile, hemodynamically stable, no acute events overnight, she was able to have 2 bowel movements today, and she is having some burning abdominal pain, however denies any acute distress. She is resting comfortably in bed, the appearance of bilateral lower extremity edema has improved, and her breathing is easier. From pulmonary standpoint patient is stable for discharge home today, she will follow-up with Dr. Ledezma in the office within 7 days, and she will need outpatient bronchoscopy with biopsies of the mediastinal lymphadenopathy highly suspicious for recurrence of lung cancer On 02/02/2018 patient seen in follow-up. Her breathing continues to improve, denies any increasing dyspnea, denies any chest pain or chest congestion. Her FiO2 is down to 3 L per nasal cannula and her pulse ox is 92%, she is afebrile, vital signs are stable. No new chest x-ray today, today's labs show WBC of 12.5 , hemoglobin is 9.6, sodium is 136, chloride is 92, CO2 is 33, B1 is 23, creatinine 0.95. Patient remains on empiric antibiotic no form of Rocephin, and oral Lasix, and with nebulized bronchodilators. Her active issue is her abdominal distention, and constipation. Abdomen/pelvis CT showed retained fecal material in the left colon, but no intestinal wall thickening, no ascites , no evidence of free air. Gallbladder was within normal limits, and there was a small nonobstructing renal calculi. On 02/03/2018 patient seen in follow-up. From pulmonary standpoint she stable, denies any worsening dyspnea, vital signs are stable, patient is afebrile, she has been given enemas, and did have a large bowel movement, but she continues to complain of intermittent nausea. She was seen in consultation by GI service. Lung sounds reveal good air movement bilaterally, with a few bibasilar crackles. FiO2 3 L per nasal cannula, and this is what patient wears at home. Respirations are even and nonlabored, abdomen is soft, less distended. Objective - Vital Signs Vital signs: Vital Signs Temp 98.0 F 02/03/18 07:15 Pulse 72 02/03/18 11:27 Resp 20 02/03/18 07:15 BP 143/65 02/03/18 07:15 Pulse Ox 95 02/03/18 07:15 Intake & Output 02/02/18 02/03/18 02/03/18 18:59 06:59 18:59 Intake Total 350 Balance 350 Weight 93 kg 93 kg Intake: Oral 350 Other: Voiding Method Bedside Commode # Voids 3 1 1 - Exam Physical exam revealed a 72-year-old female , calm and comfortable likely distress on 4 L of oxygen by nasal cannula. HEENT: Anicteric sclerae, pink and moist conjunctivae. Extraocular movements intact, pupils are reactive to light they are round and equal. External inspection of ears and nose showed normal mucosa. Oral mucosa, soft and hard palate tongue and posterior pharynx are intact. Neck: Supple no neck masses, no JVD, no thyroid enlargement, no adenopathy. Lungs: Symmetrical expansion, Diminished breath sounds at the bases no rhonchi or wheezes, and the patient has improved aeration and diminished tract lungs bilaterally. Some scattered rales at the right lower base CVS: Irregular rate and rhythm, normal S1 and S2, no gallops, no murmur, no rubs. Abdomen: Soft, somewhat distended, nontender, no organomegaly, no rebound, no guarding, positive bowel sounds. Extremities: No clubbing, no edema, no cyanosis, 2+ pulses in upper and lower extremities. Musculoskeletal: Muscle strength and tone normal. Neurologic: Alert and oriented 3, mental status is improved - Labs CBC & Chem 7: 02/02/18 07:54 02/02/18 07:54 Labs: Abnormal Lab Results - Last 24 Hours (Table) 02/02/18 02/02/18 02/02/18 Range/Units 11:35 16:53 20:35 POC Glucose (mg/dL) 165 H 112 H 154 H (75-99) mg/dL 02/03/18 Range/Units 11:25 POC Glucose (mg/dL) 105 H (75-99) mg/dL Assessment and Plan Plan: Assessment: 1 acute on top of chronic hypoxic and hypercapnic respiratory failure, with development of diffuse bilateral pulmonary infiltrates/consolidation right more than left. The patient responded nicely to diuretics in the right lung pulmonary infiltrates have completely recovered. The patient has some volume loss and chronic opacity left lung base which is probably related to a previous lobectomy for lung cancer. She is currently on oral diuretics. She was also taken off the IV Zosyn and currently she is on Augmentin which got switched to Rocephin by the primary care physician today. This change was done due to some leukocytosis was noted on today's blood work. Nevertheless, I reviewed the chest x-ray and I do not think the source of infection is the lung. 2 altered mental status, recovered and this was related to CO2 narcosis. The patient's mentation is back to normal. 3 right lower lobe pulmonary nodule measuring 2 x 1 cm in size in addition to suspicious mediastinal lymphadenopathy. Findings are quite suspicious for lung cancer 4 previous history of left lower lobe resection back in the year 2003 non-small cell lung cancer 5 chronic pleural calcification on the left lower lobe related to lobectomy 6 COPD severe with an FEV1 of 36% of predicted at baseline 7 chronic hypoxic respiratory failure maintained on oxygen 4 L/m nasal cannula 8 CHF with diastolic dysfunction 9 coronary artery disease 10 chronic atrial fibrillation maintained on long-term anticoagulation Plan She remains stable from pulmonary standpoint, denies any worsening dyspnea, vital signs are stable, no acute events overnight. She is having some intermittent nausea, still complains of being constipated, although she had large results after an enema. She was seen in consultation by GI service. I performed a history & physical examination of the patient and discussed their management with my nurse practitioner, Lesly Sewell. I reviewed the nurse practitioner's note and agree with the documented findings and plan of care. Lung sounds are positive for some scattered rales over right lower lobe The findings and the impression was discussed with the patient. I attest to the documentation by the nurse practitioner. Time with Patient: Less than 30
--- NOTE | 2018-02-03 11:45 | P.PN ---
Subjective Progress Note Date: 02/03/18 Principal diagnosis: Abdominal pain and constipation Large bowel movement after enema yesterday. Reports improvement in abdominal pain. Anticipating discharge. Denies hematemesis hematochezia melena. Objective - Vital Signs Vital signs: Vital Signs Temp 98.0 F 02/03/18 07:15 Pulse 72 02/03/18 11:27 Resp 20 02/03/18 07:15 BP 143/65 02/03/18 07:15 Pulse Ox 95 02/03/18 07:15 Intake & Output 02/02/18 02/03/18 02/03/18 18:59 06:59 18:59 Intake Total 350 Balance 350 Weight 93 kg 93 kg Intake: Oral 350 Other: Voiding Method Bedside Commode # Voids 3 1 1 - Exam General appearance: The patient is alert, oriented, in no acute distress. HET: Head is normocephalic and atraumatic. Pupils are equal and reactive. Oropharynx is clear without lesions. Neck: Supple without lymphadenopathy. Trachea midline. Heart: S1 S2. Regular rate and rhythm. Lungs: No crackles or wheezes are heard. Diminished in bases bilaterally. Abdomen: Soft, mildly bloated mild tenderness across mid abdomen with bowel sounds. No peritoneal signs. No palpable organomegaly or masses. Extremities: Normal skin color and turgor. No cyanosis, rash, ulceration, clubbing, or edema. Radial and pedal pulses are 2/4 bilaterally. Neurological: No focal deficits. Strength and sensation are grossly intact. - Labs CBC & Chem 7: 02/02/18 07:54 02/02/18 07:54 Labs: Abnormal Lab Results - Last 24 Hours (Table) 02/02/18 02/02/18 02/02/18 Range/Units 11:35 16:53 20:35 POC Glucose (mg/dL) 165 H 112 H 154 H (75-99) mg/dL 02/03/18 Range/Units 11:25 POC Glucose (mg/dL) 105 H (75-99) mg/dL Assessment and Plan (1) Abdominal pain Narrative/Plan: 72-year-old female with a history of severe COPD O2 dependent and prior history of lung carcinoma presents 12 days ago with shortness of breath A. fib with RVR maintained on Eliquis pulmonary edema possible pneumonia with underlying constipation. Recent CT imaging reported right lower lobe subpleural mass possible malignancy, pulmonology service currently evaluating. Etiology of abdominal pain could be related to constipation however other colonic pathology cannot be entirely excluded last colonoscopy screening several years ago. Current Visit: No Status: Acute Code(s): R10.9 - UNSPECIFIED ABDOMINAL PAIN SNOMED Code(s): 21698173 Plan: 1. Abdominal pain improved passing bowel movements. Continue with stool softeners. Outpatient colonoscopy advised. Discharge per medicine pulmonology. Assessment and plan a care discussed with Dr. Collins
--- NOTE | 2018-02-03 14:28 | P.DS ---
Providers Date of admission: 01/21/18 15:10 Expected date of discharge: 02/03/18 Attending physician: Ramonita Sorenson Consults: 01/21/18 15:10 Consult Physician Routine Consulting Provider: Syeda Pichardo Consult Reason/Comments: afib Do you want consulting provider notified?: Yes Consult Physician Routine Consulting Provider: Kulwant Arguello Consult Reason/Comments: known Do you want consulting provider notified?: Yes Primary care physician: Mariaa Chery Hospital Course: Discharge diagnosis 1. Acute on chronic hypoxic and hypercapnic respiratory failure secondary to congestive heart failure, COPD, A. fib with RVR and possible pneumonia. 2. Acute COPD exacerbation: Continue nebulizer treatments 3. Acute on chronic diastolic Congestive heart failure exacerbation: Continue patient's oral Lasix 4. Acute tracheobronchitis with possible pneumonia currently on oral Augmentin 5. Atrial fibrillation with rapid ventricular response. History of chronic persistent atrial fibrillation area cardiology restarted Eliquis and metoprolol 6. Essential hypertension 7. Diabetes mellitus type 2: Elevated blood sugar in the 200s. During admission did show improvement. She'll resume her home insulin 8. History of lung cancer with prior left lobectomy 9. 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 Showing improvement 10. Iron deficiency anemia: Total iron of 10 and iron saturation also low at 3.36. Hemoglobin 8.4. Patient be given a dose of IV iron. Continue oral iron at home 11. Acute kidney injury likely related to diuretics. Now resolved. Continue to monitor. 12. Paratracheal lymph nodes: Patient will be undergoing a bronchoscopy with biopsy in the outpatient setting. Hospital course This is a 72-year-old female with past medical history noted below significant for severe COPD and paroxysmal atrial fibrillation who presented to the hospital with worsening shortness of breath. Patient said that his symptoms started 2 days ago and is being getting progressively worse. Her shortness of breath is mostly exertional. She describes a nonproductive cough that is being ongoing for several days as well. There is no recent sick contact. No fevers or chills. No chest pain. Patient was evaluated in the emergency room and was found to be in atrial fibrillation with rapid ventricular response and heart rate up to 132. Patient underwent a chest x-ray showing evidence of bilateral pulmonary edema with suspected underlying pneumonia. Patient was started on a Cardizem drip and was given one-time dose of IV Lasix. She is also on antibiotic. She was noted to have some wheezing in the emergency room that resolved today. 01/24/2018 patient was transferred over to the ICU over the weekend due to worsening shortness of breath and hypoxic respiratory failure. She's currently on BiPAP. Still confused. Reports some shortness of breath. Denies any chest pain. She was having atrial fibrillation with rapid ventricular response she is scheduled for metoprolol. Chest x-ray and blood gases are showing improvement. She is on IV Lasix and IV antibiotics. Pulmonary and cardiology are following. Patient also had fever of 101.1 yesterday. She had a temp of 100.9 this morning which is down to 98.5 01/25/2018 patient currently sitting at bedside chair. She is off of BiPAP. She is on 6 L satting at 91%. Cardiology is recommending that she stays on IV Lasix for another 24 hours. Chest x-ray showing correlate for congestive heart failure, pneumonia versus atelectasis. Patient reports improvement in her cough and shortness of breath. Patient has been having elevated blood sugars. Levemir has been ordered. On 01/26/2018 patient is alert and oriented 3 she was seen in intensive care unit today she is laying in bed comfortably, she is still having significant cough with minimal sputum production, she has shortness of breath with activity , pulse ox is 94% on high flow 4 L nasal cannula, she denies any chest pain no nausea or vomiting no abdominal pain no diarrhea and no urinary symptoms. 01/27/2018 patient sitting up at bedside chair. Pulmonary service is planning on bronchoscopy with biopsy of paratracheal lymph nodes tomorrow. Eliquis has been placed on hold. Rice catheter will be removed today. She will maintain IV Lasix for another 24 hours. Patient denies any chest pain. Reporting improvement in her shortness of breath. She is down to 4 L satting at 92%. 01/28/2018 patient sitting up at bedside chair. Feeling better cough and shortness of breath has improved. Pulmonary service is planning on bronchoscopy with biopsy of paratracheal lymph nodes however this was delayed because patient had breakfast this morning. Eliquis has been placed on hold. She is maintained on IV Lasix. Patient denies any chest pain. Reporting improvement in her shortness of breath. She is down to 4 L with pulse oximetry at 92%. 01/29/2018 patient sitting up at bedside chair. Feeling better cough and shortness of breath has improved. Eliquis has been placed on hold in anticipation for bronchoscopy. She is maintained on IV Lasix. Patient denies any chest pain. Reporting improvement in her shortness of breath. She is down to 4 L with pulse oximetry at 92%. She was switched to oral Augmentin this morning however she had an episode of severe nausea lasting 2 hours, oral Augmentin is stoped and patient was started on IV Rocephin. On 01/30/2018 Patient is alert and oriented complaining of abdominal discomfort and constipation, otherwise no complaints at this time, white blood count is up to 15.5, otherwise no significant change since yesterday, at this time will give milk of magnesia for constipation, with recheck chest x-ray and check abdomen ultrasound, and continue to monitor white blood count On 01/31/2018 Patient is alert and oriented planning of constipation and abdominal discomfort complaining of shortness of breath with activity otherwise no complaints, white blood count down to 12.9 On 02/01/2018 patient is alert and oriented times 3 in no distress, complaining of abdominal bloating and abdominal pain, shortness of breath improved, she denies any chest pain, no vomiting or diarrhea, no urinary symptoms. On 02/02/2018 patient is alert and oriented 3 she is mostly complaining of abdominal pain and abdominal distention her shortness of breath and cough have improved she denies any chest pain there is no nausea or vomiting no diarrhea she states she is constipated she has no urinary symptoms Patient will be discharged home today. She's been cleared by consulting physicians for discharge. Bronchoscopy will be completed outpatient with Dr. Ledezma. Patient did not undergo the bronchoscopy during her hospitalization due to generalized weakness and poor lung follow-up function. Patient treated for a bronchitis with possible pneumonia. Patient was cleared by pulmonary service as well as cardiology service for discharge. Cardiology is following in regards to her congestive heart failure and atrial fibrillation with rapid ventricular response. Patient tolerated treatment well and was be able to be placed on oral Lasix. Patient developed some abdominal discomfort computed tomography scan of the abdomen showed retained fecal material in the left colon , but no intestinal wall thickening, no ascites or free air. Gallbladder was is in normal limits and there was a small nonobstructing renal calculi. Patient was seen by GI service and they're recommending colonoscopy in the outpatient setting. Patient was given enemas stool softeners and will continue MiraLAX at home. She is now having bowel movements and abdominal discomfort is showing improvement. She does occasionally have some nausea but again this is improving. Patient was started on iron as well and this could contribute to her constipation for her iron deficiency anemia. Patient is medical stable for discharge. Please refer to chart for any further details. Also note that patient will be discharged home with Ceftin for 7 more days for treatment of her bronchitis and possible pneumonia I performed an examination of the patient and discussed their management with the physician Carpenter/Labor. I have reviewed the Physician Carpenter/Labor's notes and agree with the documented findings and plan of care Patient Condition at Discharge: Stable Plan - Discharge Summary Discharge Rx Participant: No New Discharge Prescriptions: New Acetaminophen Tab [Tylenol] 1,000 mg PO Q6HR PRN tab PRN Reason: Fever And/ Or Pain Diltiazem Oral [Cardizem*] 60 mg PO TID tab Docusate [Colace] 100 mg PO DAILY cap Ferrous Sulfate [Iron (65 MG Elemental)] 325 mg PO BID tab Ipratropium-Albuterol Nebulize [Duoneb 0.5 mg-3 mg/3 ml Soln] 3 ml INHALATION RT-Q2H PRN ampul.neb PRN Reason: Shortness Of Breath Or Wheezing Ipratropium-Albuterol Nebulize [Duoneb 0.5 mg-3 mg/3 ml Soln] 3 ml INHALATION RT-QID ampul.neb Metoprolol Succinate (ER) [Toprol XL] 100 mg PO DAILY tab.er.24h Polyethylene Glycol 3350 [Miralax] 17 gm PO DAILY #30 packet Cefuroxime Axetil [Ceftin] 500 mg PO BID #14 tab Continue Insulin Aspart [NovoLOG Flexpen] 20 units SQ AC-TID Insulin Degludec [Tresiba Flextouch U-200] 98 unit SQ DAILY Fluticasone/Salmeterol [Advair 250-50 Diskus] 1 puff INHALATION RT-BID Cyanocobalamin [Vitamin B-12] 500 mcg PO DAILY Cholecalciferol [Vitamin D3] 4,000 unit PO DAILY Atorvastatin [Lipitor] 40 mg PO HS Glimepiride [Amaryl] 4 mg PO AC-BID metFORMIN HCL [Glucophage] 500 mg PO BID Loratadine [Claritin] 10 mg PO DAILY Albuterol Inhaler [Ventolin Hfa Inhaler] 2 puff INHALATION RT-BID Apixaban [Eliquis] 5 mg PO BID #60 tab Losartan [Cozaar] 100 mg PO DAILY #30 tab Spironolactone [Aldactone] 25 mg PO DAILY #30 tab Furosemide [Lasix] 40 mg PO BID Pantoprazole Sodium [Protonix] 40 mg PO BID #60 tablet.dr Discontinued Gabapentin 800 mg PO TID Albuterol Nebulized [Ventolin Nebulized] 2.5 mg INHALATION RT-QID Metoprolol Succinate (ER) [Toprol XL] 50 mg PO DAILY #60 tab.er.24h Sucralfate [Carafate] 1 gm PO ACHS Discharge Medication List Atorvastatin [Lipitor] 40 mg PO HS 11/17/16 [History] Cholecalciferol [Vitamin D3] 4,000 unit PO DAILY 11/17/16 [History] Cyanocobalamin [Vitamin B-12] 500 mcg PO DAILY 11/17/16 [History] Fluticasone/Salmeterol [Advair 250-50 Diskus] 1 puff INHALATION RT-BID 11/17/16 [History] Glimepiride [Amaryl] 4 mg PO AC-BID 11/17/16 [History] Insulin Aspart [NovoLOG Flexpen] 20 units SQ AC-TID 11/17/16 [History] Insulin Degludec [Tresiba Flextouch U-200] 98 unit SQ DAILY 11/17/16 [History] Albuterol Inhaler [Ventolin Hfa Inhaler] 2 puff INHALATION RT-BID 07/22/17 [ History] Loratadine [Claritin] 10 mg PO DAILY 07/22/17 [History] metFORMIN HCL [Glucophage] 500 mg PO BID 07/22/17 [History] Apixaban [Eliquis] 5 mg PO BID #60 tab 08/02/17 [Rx] Losartan [Cozaar] 100 mg PO DAILY #30 tab 08/02/17 [Rx] Spironolactone [Aldactone] 25 mg PO DAILY #30 tab 08/02/17 [Rx] Furosemide [Lasix] 40 mg PO BID 12/31/17 [History] Pantoprazole Sodium [Protonix] 40 mg PO BID #60 tablet.dr 01/05/18 [Rx] Acetaminophen Tab [Tylenol] 1,000 mg PO Q6HR PRN tab 02/01/18 [Rx] Diltiazem Oral [Cardizem*] 60 mg PO TID tab 02/01/18 [Rx] Docusate [Colace] 100 mg PO DAILY cap 02/01/18 [Rx] Ferrous Sulfate [Iron (65 MG Elemental)] 325 mg PO BID tab 02/01/18 [Rx] Ipratropium-Albuterol Nebulize [Duoneb 0.5 mg-3 mg/3 ml Soln] 3 ml INHALATION RT -Q2H PRN ampul.neb 02/01/18 [Rx] Ipratropium-Albuterol Nebulize [Duoneb 0.5 mg-3 mg/3 ml Soln] 3 ml INHALATION RT -QID ampul.neb 02/01/18 [Rx] Metoprolol Succinate (ER) [Toprol XL] 100 mg PO DAILY tab.er.24h 02/01/18 [Rx] Cefuroxime Axetil [Ceftin] 500 mg PO BID #14 tab 02/03/18 [Rx] Polyethylene Glycol 3350 [Miralax] 17 gm PO DAILY #30 packet 02/03/18 [Rx] Follow up Appointment(s)/Referral(s): [facility], [NON-STAFF] - 1 Week Kelley Nash PAC [REFERRING] - 03/03/18 10:30 am Mariaa Chery DO [Primary Care Provider] - 1 Week Kulwant Arguello MD [STAFF PHYSICIAN] - 1 Week Patient Instructions/Handouts: Heart Failure (DC), A-fib (Atrial Fibrillation) (DC), COPD (Chronic Obstructive Pulmonary Disease) (DC) Activity/Diet/Wound Care/Special Instructions: diet: cardiac Activity: as tolerated Discharge Disposition: HOME WITH HOME HEALTH SERVICES
[2018-02-03 15:06] VITALS: BP 143/57; PULSE 88; RESP 18; TEMP 98.1
--- NOTE | 2018-02-04 17:05 | CDI ---
Last Revision, September 2017 Documentation Clarification Form Date: 02/04/18 From: Ute Lo Paola Cobos, Sprayer Machine between 8:30 am & 5 pm Micaela Admit Date: 01/21/2018 3:10:00 PM Patient Name: Arminda Tavarez Visit Number: [id number] Discharge Date: 02/03/18 ATTENTION: The Clinical Documentation Specialists (CDI) and [facility] Coding Staff appreciate your assistance in clarifying documentation. Please respond to the clarification below the line at the bottom and electronically sign. The CDI & [facility] Coding staff will review the response and follow-up if needed. Please note: Queries are made part of the Legal Health Record. If you have any questions, please contact the author of this message via ITS. Dr. Syeda Pichardo Atrial Flutter is documented in the 01/22 progress note. "The rapid atrial flutter ablatoin rate is in response to her pulmonary status. We will continue on the beta kalyan but add calcium channel kalyan for better control of her rate. She will continue on her anticoagulation." In your professional opinion, in order to capture the severity of condition; can you please clarify the type of atrial flutter if known? Typical/Type I Atypical/Type II Other, please specify Unable to determine Please continue to document in your progress notes and discharge summary in order to capture severity of illness and risk of mortality. Include clinical findings that support your diagnosis. MTDD
--- NOTE | 2018-02-04 17:18 | CDI ---
Last Revision, September 2017 Documentation Clarification Form Date: 02/04/18 From: Utestacey Lo Paola Cobos, Lean Consultant between 8:30 am & 5 pm Micaela Admit Date: 01/21/2018 3:10:00 PM Patient Name: Arminda Tavarez Visit Number: [id number] Discharge Date: 02/03/18 ATTENTION: The Clinical Documentation Specialists (CDI) and [facility] Coding Staff appreciate your assistance in clarifying documentation. Please respond to the clarification below the line at the bottom and electronically sign. The CDI & [facility] Coding staff will review the response and follow-up if needed. Please note: Queries are made part of the Legal Health Record. If you have any questions, please contact the author of this message via ITS. Dr. Ramonita Sorenson The patient has diabetes type II with elevated blood sugars per 01/25 PN and discharge summary. BS range from 01/24 forward: 181-275 Treatment: Levemir, sliding scale coverage We are required to query the physician for clarification whether the patient has hypergylcemia or hypoglycemia so that the appropriate code may be reported - uncontrolled diabetes indicates that the patient's blood sugar is not at an acceptable level, because it is either too high or too low. In order to capture the severity of Illness and necessary documentation specificity, please clarify if Type 2 diabetes is: Hyperglycemia Other, please specify Unable to determine Please continue to document in your progress notes and discharge summary in order to capture severity of illness and risk of mortality. Include clinical findings that support your diagnosis. hyperglycemia MTDD
--- NOTE | 2018-02-08 09:03 | CDI ---
Last Revision, September 2017 Documentation Clarification Form Date: 02/08/18 From: Ute Lo Paola Cobos, Production Support Analyst between 8:30 am & 5 pm Micaela Admit Date: 01/21/2018 3:10:00 PM Patient Name: Arminda Tavarez Visit Number: [id number] Discharge Date: 02/03/18 ATTENTION: The Clinical Documentation Specialists (CDI) and [facility] Coding Staff appreciate your assistance in clarifying documentation. Please respond to the clarification below the line at the bottom and electronically sign. The CDI & [facility] Coding staff will review the response and follow-up if needed. Please note: Queries are made part of the Legal Health Record. If you have any questions, please contact the author of this message via ITS. Dr. Syeda Pichardo Atrial Flutter is documented in the 01/22 progress note. "The rapid atrial flutter ablatoin rate is in response to her pulmonary status. We will continue on the beta kalyan but add calcium channel kalyan for better control of her rate. She will continue on her anticoagulation." In your professional opinion, in order to capture the severity of condition; can you please clarify the type of atrial flutter if known? X Typical/Type I Atypical/Type II Other, please specify Unable to determine Please continue to document in your progress notes and discharge summary in order to capture severity of illness and risk of mortality. Include clinical findings that support your diagnosis. MTDD
--- NOTE | 2018-02-10 15:48 | CDI ---
Last Revision, September 2017 Documentation Clarification Form Date: 02/10/18 From: Ute Lo Paola Cobos, Candy Catcher between 8:30 am & 5 pm Micaela Admit Date: 01/21/2018 3:10:00 PM Patient Name: Arminda Tavarez Visit Number: [id number] Discharge Date: 02/03/18 ATTENTION: The Clinical Documentation Specialists (CDI) and [facility] Coding Staff appreciate your assistance in clarifying documentation. Please respond to the clarification below the line at the bottom and electronically sign. The CDI & [facility] Coding staff will review the response and follow-up if needed. Please note: Queries are made part of the Legal Health Record. If you have any questions, please contact the author of this message via ITS. Dr. Syeda Pichardo Atrial Flutter is documented in the 01/22 progress note. "The rapid atrial flutter ablatoin rate is in response to her pulmonary status. We will continue on the beta kalyan but add calcium channel kalyan for better control of her rate. She will continue on her anticoagulation." In your professional opinion, in order to capture the severity of condition; can you please clarify the type of atrial flutter if known? Typical/Type I Atypical/Type II Other, please specify Unable to determine Please continue to document in your progress notes and discharge summary in order to capture severity of illness and risk of mortality. Include clinical findings that support your diagnosis. MTDD
--- NOTE | 2018-03-03 15:02 | P.PN ---
Progress Note - Text Progress Note Date: 03/03/18 This is an addendum to the cardiology progress note dictated. Patient has typical atrial flutter. DNP note has been reviewed, I agree with a documented findings and plan of care. Patient was seen and examined.
== END 2018-02-03 15:25 | disposition home health service (06) | DRG 291 ==
LOC: EC 12:33 → 6SEL 15:10 → 6ICU 01-23 07:42 → 5MS5E 01-28 20:41
PROVIDERS: ADMIT Internal Medicine; ATTEND Internal Medicine
PROC: 5A09457 Assistance with Respiratory Ventilation, 24-96 Consecutive Hours, Continuous Positive Airway Pressure (ICD-10-PCS; principal; 2018-01-23)
DX: I11.0 Hypertensive heart disease with heart failure (principal); J96.21 Acute and chronic respiratory failure with hypoxia; J18.9 Pneumonia, unspecified organism; J96.22 Acute and chronic respiratory failure with hypercapnia; N17.9 Acute kidney failure, unspecified; G93.1 Anoxic brain damage, not elsewhere classified; E87.2 Acidosis; J44.1 Chronic obstructive pulmonary disease with (acute) exacerbation; J44.0 Chronic obstructive pulmonary disease with (acute) lower respiratory infection; I48.3 Typical atrial flutter; I48.2 Chronic atrial fibrillation; I27.20 Pulmonary hypertension, unspecified; Z99.81 Dependence on supplemental oxygen; Z79.01 Long term (current) use of anticoagulants; D50.9 Iron deficiency anemia, unspecified; E11.65 Type 2 diabetes mellitus with hyperglycemia; J20.8 Acute bronchitis due to other specified organisms; I50.33 Acute on chronic diastolic (congestive) heart failure; I25.10 Atherosclerotic heart disease of native coronary artery without angina pectoris; F40.240 Claustrophobia; G47.30 Sleep apnea, unspecified; K21.9 Gastro-esophageal reflux disease without esophagitis; E78.5 Hyperlipidemia, unspecified; R59.0 Localized enlarged lymph nodes; R91.1 Solitary pulmonary nodule; K59.00 Constipation, unspecified; T50.2X5A Adverse effect of carbonic-anhydrase inhibitors, benzothiadiazides and other diuretics, initial encounter; N20.0 Calculus of kidney; Z79.51 Long term (current) use of inhaled steroids; Z79.4 Long term (current) use of insulin; Z79.899 Other long term (current) drug therapy; Z87.891 Personal history of nicotine dependence; Z95.5 Presence of coronary angioplasty implant and graft; Z90.2 Acquired absence of lung [part of]; Z85.118 Personal history of other malignant neoplasm of bronchus and lung; Z92.21 Personal history of antineoplastic chemotherapy; Z92.3 Personal history of irradiation; Z86.61 Personal history of infections of the central nervous system; Z88.5 Allergy status to narcotic agent; Z83.3 Family history of diabetes mellitus
CPT/HCPCS: 36415; 36600; 71045; 71046; 74176; 76700; 80048; 80053; 81001; 82150; 82550; 82553; 82728; 82805; 83036; 83540; 83550; 83605; 83690; 83735; 83880; 84100; 84132; 84484; 85025; 85610; 85730; 87040; 87070; 87086; 87205; 93005; 93306; 94640; 94660; 94760; 96361; 96365; 96368; 96375; 96376; 99214; 99291

== ENCOUNTER 2018-02-07 15:56 | Inpatient (IN) | payer MEDICARE ==
[2018-02-07] MEDS ORDERED: SODIUM CHLORIDE 0.9% 1,000 ML IV STA ×2 (15:59→17:26)
--- NOTE | 2018-02-07 16:07 | ED ---
General Adult HPI - General Stated complaint: Weakness Time Seen by Provider: 02/07/18 15:58 Source: RN notes reviewed, old records reviewed - History of Present Illness Initial comments: This is a 72-year-old female the ER for evaluation. This patient presents for evaluation regards to altered mental state weakness. Patient, EMS to have low blood sugar, given amp of glucose prior to arrival blood sugars improved. Patient herself denies any pain, patient herself states that she has not been feeling well since she was discharged home. Which is admitted to the hospital about a week and half ago. - Related Data Home Medications Medication Instructions Recorded Confirmed Atorvastatin [Lipitor] 40 mg PO HS 11/17/16 02/07/18 Cholecalciferol [Vitamin D3] 4,000 unit PO DAILY 11/17/16 02/07/18 Cyanocobalamin [Vitamin B-12] 500 mcg PO DAILY 11/17/16 02/07/18 Fluticasone/Salmeterol [Advair 1 puff INHALATION RT-BID 11/17/16 02/07/18 250-50 Diskus] Glimepiride [Amaryl] 4 mg PO AC-BID 11/17/16 02/07/18 Insulin Aspart [NovoLOG Flexpen] 20 units SQ AC-TID 11/17/16 02/07/18 Insulin Degludec [Tresiba 98 unit SQ DAILY 11/17/16 02/07/18 Flextouch U-200] Albuterol Inhaler [Ventolin Hfa 2 puff INHALATION RT-BID 07/22/17 02/07/18 Inhaler] Loratadine [Claritin] 10 mg PO DAILY 07/22/17 02/07/18 metFORMIN HCL [Glucophage] 500 mg PO BID 07/22/17 02/07/18 Furosemide [Lasix] 40 mg PO BID 12/31/17 02/07/18 Gabapentin [Neurontin] 800 mg PO TID 02/07/18 02/07/18 Previous Rx's Medication Instructions Recorded Apixaban [Eliquis] 5 mg PO BID #60 tab 08/02/17 Losartan [Cozaar] 100 mg PO DAILY #30 tab 08/02/17 Spironolactone [Aldactone] 25 mg PO DAILY #30 tab 08/02/17 Pantoprazole Sodium [Protonix] 40 mg PO BID #60 tablet. 01/05/18 Acetaminophen Tab [Tylenol] 1,000 mg PO Q6HR PRN tab 02/01/18 Diltiazem Oral [Cardizem*] 60 mg PO TID tab 02/01/18 Docusate [Colace] 100 mg PO DAILY cap 02/01/18 Ferrous Sulfate [Iron (65 MG 325 mg PO BID tab 02/01/18 Elemental)] Ipratropium-Albuterol Nebulize 3 ml INHALATION RT-QID ampul.neb 02/01/18 [Duoneb 0.5 mg-3 mg/3 ml Soln] Metoprolol Succinate (ER) [Toprol 100 mg PO DAILY tab.er.24h 02/01/18 XL] Cefuroxime Axetil [Ceftin] 500 mg PO BID #14 tab 02/03/18 Polyethylene Glycol 3350 [Miralax] 17 gm PO DAILY #30 packet 02/03/18 Allergies Allergy/AdvReac Type Severity Reaction Status Date / Time codeine Allergy Unknown Verified 02/07/18 16:56 Review of Systems ROS Statement: Those systems with pertinent positive or pertinent negative responses have been documented in the HPI. ROS Other: All systems not noted in ROS Statement are negative. Past Medical History Past Medical History: Atrial Fibrillation, Heart Failure, COPD, Diabetes Mellitus, Hyperlipidemia, Hypertension, Memory Impairment Additional Past Medical History / Comment(s): COPD severe with an FEV1 of 36%, chronic hypoxic respiratory failure, non-small cell lung cancer with a previous left lower lobe resection, chronic atrial fibrillation, hypertension, coronary artery disease, diabetes mellitus, meningitis back in the 70s History of Any Multi-Drug Resistant Organisms: None Reported Past Surgical History: Heart Catheterization With Stent, Tubal Ligation Additional Past Surgical History / Comment(s): Left lower lobe lung removed, right shoulder rotator cuff. Past Anesthesia/Blood Transfusion Reactions: No Reported Reaction Additional Past Anesthesia/Blood Transfusion Reaction / Comment(s): Claustrophobia Date of Last Stent Placement:: unk Past Psychological History: No Psychological Hx Reported Smoking Status: Former smoker Past Alcohol Use History: None Reported Past Drug Use History: None Reported - Past Family History Mother History Unknown: Yes Family Medical History: No Reported History Father Family Medical History: Diabetes Mellitus General Exam General appearance: alert, in no apparent distress Head exam: Present: atraumatic, normocephalic, normal inspection Eye exam: Present: normal appearance, PERRL, EOMI. Absent: scleral icterus, conjunctival injection, periorbital swelling ENT exam: Present: normal exam, mucous membranes moist Neck exam: Present: normal inspection. Absent: tenderness, meningismus, lymphadenopathy Respiratory exam: Present: normal lung sounds bilaterally. Absent: respiratory distress, wheezes, rales, rhonchi, stridor Cardiovascular Exam: Present: regular rate, normal rhythm, normal heart sounds. Absent: systolic murmur, diastolic murmur, rubs, gallop, clicks GI/Abdominal exam: Present: soft, normal bowel sounds. Absent: distended, tenderness, guarding, rebound, rigid Extremities exam: Present: normal inspection, full ROM, normal capillary refill. Absent: tenderness, pedal edema, joint swelling, calf tenderness Back exam: Present: normal inspection Neurological exam: Present: alert, oriented X3, CN II-XII intact Psychiatric exam: Present: normal affect, normal mood Skin exam: Present: warm, dry, intact, normal color. Absent: rash Course Vital Signs 02/07/18 16:00 Temperature 97.0 F L Pulse Rate 79 Respiratory 24 Rate Blood Pressure 189/75 O2 Sat by Pulse 93 L Oximetry - Reevaluation(s) Reevaluation #1: 02/07/18 17:29 Patient states she is no longer feeling well, does not feel good week still very fatigued EKG Findings - EKG Comments: EKG Findings:: EKG shows A. fib rate of 73, QRS 100, QTC 445 Medical Decision Making - Medical Decision Making 72 female the ER with anorexia decreased appetite weakness UTI and dehydration, patient will be given antibiotics here in ER, we'll put on bowel regimen, will admit for continued evaluation and management - Lab Data Result diagrams: 02/07/18 16:30 02/07/18 16:30 Lab Results 02/07/18 02/07/18 02/07/18 Range/Units 16:01 16:18 16:30 WBC (3.8-10.6) k/uL RBC (3.80-5.40) m/uL Hgb (11.4-16.0) gm/dL Hct (34.0-46.0) % MCV (80.0-100.0) fL MCH (25.0-35.0) pg MCHC (31.0-37.0) g/dL RDW (11.5-15.5) % Plt Count (150-450) k/uL Neutrophils % % Lymphocytes % % Monocytes % % Eosinophils % % Basophils % % Neutrophils # (1.3-7.7) k/uL Lymphocytes # (1.0-4.8) k/uL Monocytes # (0-1.0) k/uL Eosinophils # (0-0.7) k/uL Basophils # (0-0.2) k/uL Hypochromasia PT (9.0-12.0) sec INR (<1.2) APTT (22.0-30.0) sec Sodium (137-145) mmol/L Potassium (3.5-5.1) mmol/L Chloride (98-107) mmol/L Carbon Dioxide (22-30) mmol/L Anion Gap mmol/L BUN (7-17) mg/dL Creatinine (0.52-1.04) mg/dL Est GFR (CKD-EPI)AfAm (>60 ml/min/1.73 sqM) Est GFR (CKD-EPI)NonAf (>60 ml/min/1.73 sqM) Glucose (74-99) mg/dL POC Glucose (mg/dL) 168 H (75-99) mg/dL POC Glu Cupola Tender Helper ID Etta Menendez Plasma Lactic Acid [place] (0.7-2.0) mmol/L Calcium (8.4-10.2) mg/dL Phosphorus (2.5-4.5) mg/dL Magnesium (1.6-2.3) mg/dL Total Bilirubin (0.2-1.3) mg/dL AST (14-36) U/L ALT (9-52) U/L Alkaline Phosphatase (38-126) U/L Total Creatine Kinase 48 (30-135) U/L CK-MB (CK-2) 1.7 (0.0-2.4) ng/mL CK-MB (CK-2) Rel Index 3.5 Troponin I <0.012 (0.000-0.034) ng/mL Total Protein (6.3-8.2) g/dL Albumin (3.5-5.0) g/dL TSH (0.465-4.680) mIU/L Urine Color Yellow Urine Appearance Cloudy H (Clear) Urine pH 5.5 (5.0-8.0) Ur Specific [place] 1.010 (1.001-1.035) Urine Protein 2+ H (Negative) Urine Glucose (UA) Negative (Negative) Urine Ketones Negative (Negative) Urine Blood Negative (Negative) Urine Nitrite Negative (Negative) Urine Bilirubin Negative (Negative) Urine Urobilinogen <2.0 (<2.0) mg/dL Ur Leukocyte Esterase Large H (Negative) Urine RBC 2 (0-5) /hpf Urine WBC 123 H (0-5) /hpf Urine WBC Clumps Many H (None) /hpf Ur Squamous Epith Cells 8 H (0-4) /hpf Amorphous Sediment Occasional H (None) /hpf Urine Bacteria Rare H (None) /hpf Hyaline Casts 19 H (0-2) /lpf Urine Mucus Rare H (None) /hpf Urine Yeast (Budding) Occasional H (None) /hpf 02/07/18 02/07/18 02/07/18 Range/Units 16:30 16:30 16:30 WBC 15.2 H (3.8-10.6) k/uL RBC 4.03 (3.80-5.40) m/uL Hgb 10.6 L (11.4-16.0) gm/dL Hct 35.4 (34.0-46.0) % MCV 87.9 (80.0-100.0) fL MCH 26.4 (25.0-35.0) pg MCHC 30.0 L (31.0-37.0) g/dL RDW 15.9 H (11.5-15.5) % Plt Count 389 (150-450) k/uL Neutrophils % 86 % Lymphocytes % 9 % Monocytes % 3 % Eosinophils % 1 % Basophils % 0 % Neutrophils # 13.0 H (1.3-7.7) k/uL Lymphocytes # 1.3 (1.0-4.8) k/uL Monocytes # 0.5 (0-1.0) k/uL Eosinophils # 0.2 (0-0.7) k/uL Basophils # 0.0 (0-0.2) k/uL Hypochromasia Marked PT (9.0-12.0) sec INR (<1.2) APTT (22.0-30.0) sec Sodium 134 L (137-145) mmol/L Potassium 5.3 H (3.5-5.1) mmol/L Chloride 95 L (98-107) mmol/L Carbon Dioxide 25 (22-30) mmol/L Anion Gap 14 mmol/L BUN 29 H (7-17) mg/dL Creatinine 1.04 (0.52-1.04) mg/dL Est GFR (CKD-EPI)AfAm 62 (>60 ml/min/1.73 sqM) Est GFR (CKD-EPI)NonAf 54 (>60 ml/min/1.73 sqM) Glucose 119 H (74-99) mg/dL POC Glucose (mg/dL) (75-99) mg/dL POC Glu Cup[employer] Helper ID Plasma Lactic Acid [place] 2.9 H* (0.7-2.0) mmol/L Calcium 9.0 (8.4-10.2) mg/dL Phosphorus 4.4 (2.5-4.5) mg/dL Magnesium 2.0 (1.6-2.3) mg/dL Total Bilirubin 0.2 (0.2-1.3) mg/dL AST 26 (14-36) U/L ALT 16 (9-52) U/L Alkaline Phosphatase 65 (38-126) U/L Total Creatine Kinase (30-135) U/L CK-MB (CK-2) (0.0-2.4) ng/mL CK-MB (CK-2) Rel Index Troponin I (0.000-0.034) ng/mL Total Protein 6.4 (6.3-8.2) g/dL Albumin 3.6 (3.5-5.0) g/dL TSH 1.880 (0.465-4.680) mIU/L Urine Color Urine Appearance (Clear) Urine pH (5.0-8.0) Ur Specific [place] (1.001-1.035) Urine Protein (Negative) Urine Glucose (UA) (Negative) Urine Ketones (Negative) Urine Blood (Negative) Urine Nitrite (Negative) Urine Bilirubin (Negative) Urine Urobilinogen (<2.0) mg/dL Ur Leukocyte Esterase (Negative) Urine RBC (0-5) /hpf Urine WBC (0-5) /hpf Urine WBC Clumps (None) /hpf Ur Squamous Epith Cells (0-4) /hpf Amorphous Sediment (None) /hpf Urine Bacteria (None) /hpf Hyaline Casts (0-2) /lpf Urine Mucus (None) /hpf Urine Yeast (Budding) (None) /hpf 02/07/ Range/Units 16:30 WBC (3.8-10.6) k/uL RBC (3.80-5.40) m/uL Hgb (11.4-16.0) gm/dL Hct (34.0-46.0) % MCV (80.0-100.0) fL MCH (25.0-35.0) pg MCHC (31.0-37.0) g/dL RDW (11.5-15.5) % Plt Count (150-450) k/uL Neutrophils % % Lymphocytes % % Monocytes % % Eosinophils % % Basophils % % Neutrophils # (1.3-7.7) k/uL Lymphocytes # (1.0-4.8) k/uL Monocytes # (0-1.0) k/uL Eosinophils # (0-0.7) k/uL Basophils # (0-0.2) k/uL Hypochromasia PT 10.3 (9.0-12.0) sec INR 1.1 (<1.2) APTT 20.9 L (22.0-30.0) sec Sodium (137-145) mmol/L Potassium (3.5-5.1) mmol/L Chloride (98-107) mmol/L Carbon Dioxide (22-30) mmol/L Anion Gap mmol/L BUN (7-17) mg/dL Creatinine (0.52-1.04) mg/dL Est GFR (CKD-EPI)AfAm (>60 ml/min/1.73 sqM) Est GFR (CKD-EPI)NonAf (>60 ml/min/1.73 sqM) Glucose (74-99) mg/dL POC Glucose (mg/dL) (75-99) mg/dL POC Glu Cup[employer] Tender Helper ID Plasma Lactic Acid [place] (0.7-2.0) mmol/L Calcium (8.4-10.2) mg/dL Phosphorus (2.5-4.5) mg/dL Magnesium (1.6-2.3) mg/dL Total Bilirubin (0.2-1.3) mg/dL AST (14-36) U/L ALT (9-52) U/L Alkaline Phosphatase (38-126) U/L Total Creatine Kinase (30-135) U/L CK-MB (CK-2) (0.0-2.4) ng/mL CK-MB (CK-2) Rel Index Troponin I (0.000-0.034) ng/mL Total Protein (6.3-8.2) g/dL Albumin (3.5-5.0) g/dL TSH (0.465-4.680) mIU/L Urine Color Urine Appearance (Clear) Urine pH (5.0-8.0) Ur Specific [place] (1.001-1.035) Urine Protein (Negative) Urine Glucose (UA) (Negative) Urine Ketones (Negative) Urine Blood (Negative) Urine Nitrite (Negative) Urine Bilirubin (Negative) Urine Urobilinogen (<2.0) mg/dL Ur Leukocyte Esterase (Negative) Urine RBC (0-5) /hpf Urine WBC (0-5) /hpf Urine WBC Clumps (None) /hpf Ur Squamous Epith Cells (0-4) /hpf Amorphous Sediment (None) /hpf Urine Bacteria (None) /hpf Hyaline Casts (0-2) /lpf Urine Mucus (None) /hpf Urine Yeast (Budding) (None) /hpf - Radiology Data Radiology results: report reviewed (X-ray abdominal series to the chest shows positive constipation), image reviewed Disposition Clinical Impression: Abdominal pain, Constipation, UTI (urinary tract infection), Weakness, Dehydration Disposition: ADMITTED IP TO THIS [facility] Condition: Fair Is patient prescribed a controlled substance at d/c from ED?: No Referrals: Mariaa Chery DO [Primary Care Provider] - 1-2 days
[2018-02-07 16:14] LABS: Glucose,Whole Blood 168 mg/dL (75-99)
[2018-02-07 16:39] LABS: Basophils % (A) 0 %; Eosinophils # (A) 0.2 k/uL (0-0.7); Eosinophils % (A) 1 %; HCT 35.4 % (34.0-46.0); HGB 10.6 gm/dL (11.4-16.0); Hypochromasia Marked; Lymphocytes # (A) 1.3 k/uL (1.0-4.8); Lymphocytes % (A) 9 %; MCH 26.4 pg (25.0-35.0); MCV 87.9 fL (80.0-100.0); Mean Platelet Volume 7.8; Monocytes # (A) 0.5 k/uL (0-1.0); Monocytes % (A) 3 %; Neutrophils % (A) 86 %; Platelet Count 389 k/uL (150-450); RBC 4.03 m/uL (3.80-5.40); RDW 15.9 % (11.5-15.5); WBC 15.2 k/uL (3.8-10.6)
[2018-02-07 16:44] LABS: Amorphous Sediment,Urine Occasional /hpf; Appearance,Urine Cloudy (Clear); Bacteria,Urine Rare /hpf; Bilirubin,Urine Negative (Negative); Blood,Urine Negative (Negative); Budding Yeast,Urine Occasional /hpf; Color,Urine Yellow; Glucose,Urine (UA) Negative (Negative); Hyaline Casts,Urine 19 /lpf (0-2); Ketones,Urine Negative (Negative); Leukocyte Esterase,Urine Large (Negative); Mucus,Urine Rare /hpf; Nitrite,Urine Negative (Negative); PH, Urine 5.5 (5.0-8.0); Protein,Urine 2+ (Negative); RBC,Urine 2 /hpf (0-5); Squamous Epithelial Cell,Urine 8 /hpf (0-4); Urobilinogen,Urine <2.0 mg/dL (<2.0); WBC,Urine 123 /hpf (0-5)
[2018-02-07 16:49] LABS: Albumin 3.6 g/dL (3.5-5.0); Phosphorus 4.4 mg/dL (2.5-4.5); Potassium 5.3 mmol/L (3.5-5.1); Total Bilirubin 0.2 mg/dL (0.2-1.3); Total Protein 6.4 g/dL (6.3-8.2)
[2018-02-07 17:02] LABS: Creatine Kinase 48 U/L (30-135)
[2018-02-07 17:03] LABS: INR 1.1 (<1.2); Prothrombin Time 10.3 sec (9.0-12.0)
--- NOTE | 2018-02-07 17:05 | XR ---
EXAMINATION TYPE: XR abdomen acute w cxr DATE OF EXAM: 02/07/2018 CLINICAL HISTORY: History of hypertension presents with weakness, distention, constipation for 7 days . TECHNIQUE: Single frontal view of chest is obtained. Supine and upright views of the abdomen are acq uired. COMPARISON: Chest x-ray [address] abdomen and pelvis 6 days ago. FINDINGS: There is chronic parenchymal change with persistent left basilar opacity corresponds to vera cified pleural thickening and associated left basilar scarring. Left-sided volume loss is redemonstra colette. Right lung remains clear. Cardiac silhouette size appears stable and enlarged with atherosclerot ic thoracic aorta. Osseous structures are intact. There is some paucity of bowel gas. Gas is noted in nondistended small bowel loops. Gas and fecal ma terial is seen in nondistended colon. Amount of fecal material remains prominent in the left colon. No pneumoperitoneum is identified. Vascular calcification is redemonstrated. The osseous structures are intact. IMPRESSION: 1. Chronic changes and cardiomegaly without new suspicious acute pulmonary process. 2. Overall nonspecific but likely nonobstructive bowel gas pattern. Fairly moderate diffuse colonic f ecal stasis redemonstrated.
[2018-02-07 17:15] LABS: Creatine Kinase MB 1.7 ng/mL (0.0-2.4); Troponin I <0.012 ng/mL (0.000-0.034)
[2018-02-07 17:22] LABS: Partial Thromboplastin Time 20.9 sec (22.0-30.0)
[2018-02-07] MEDS ORDERED: cefTRIAXone IN SWFI 2,000 MG/20 ML SYRINGE IVP STA (17:26)
[2018-02-07] MEDS ORDERED: SODIUM CHLORIDE 0.9% 1,000 ML IV ONE (17:26)
[2018-02-07] MEDS ORDERED: POLYETHYLENE GLYCOL 3350 17 GM POWD.PACK PO STA (17:31)
[2018-02-07] MEDS ORDERED: SENNOSIDES-DOCUSATE SODIUM 1 EACH TAB PO STA (17:31)
[2018-02-07] MEDS ORDERED: GLYCERIN ADULT SUPPOSITORY 1 EACH RECTAL STA (17:31)
[2018-02-07] MEDS ORDERED: ONDANSETRON 4 MG/2 ML VIAL IVP STA (21:26)
[2018-02-08] MEDS ORDERED: ENALAPRILAT 1.25 MG/ML 1 ML VIAL IVP PRN (01:43)
[2018-02-08] MEDS ORDERED: DEXTROSE 50%-WATER 50 ML SYRINGE IVP STA (02:55)
[2018-02-08 03:06] LABS: Glucose,Whole Blood 30 mg/dL (75-99)
[2018-02-08 03:06] LABS: Glucose,Whole Blood 186 mg/dL (75-99)
[2018-02-08] MEDS: SENNOSIDES-DOCUSATE SODIUM 1 EACH TAB PO SCH ×3 (03:07→22:17)
[2018-02-08 04:08] LABS: Glucose,Whole Blood 117 mg/dL (75-99)
[2018-02-08] MEDS: POLYETHYLENE GLYCOL 3350 17 GM POWD.PACK PO SCH (08:23)
[2018-02-08 08:29] LABS: Glucose,Whole Blood 70 mg/dL (75-99)
[2018-02-08] MEDS: cefTRIAXone IN SWFI 1,000 MG/10 ML SYRINGE IVP SCH (09:10)
--- NOTE | 2018-02-08 10:28 | P.HPIM ---
History of Present Illness H&P Date: 02/08/18 Chief Complaint: Mental status changes and generalized weakness This is a 72-year-old female, patient of Dr. Chery. She has a known past medical history of COPD, congestive heart failure, chronic atrial fibrillation, diabetes mellitus type 2, lung cancer with prior left lobectomy and hyperlipidemia. Patient was just recently discharged from [facility] on 02/03/2018 and at that time she was treated for congestive heart failure exacerbation, COPD and pneumonia. Patient reports having a bowel movement the day after discharge. However, she continued to be very weak was having some confusion. The at bedside reports that the patient was overall so weak she had difficulty getting from the bathroom to the bed. There is no actual falling or injury. But she did need assistance. Both her legs and arms were very weak. Patient felt that she was feverish at home. Also is having evidence of hypoglycemia poor oral intake and decrease in appetite. On admission she had a white count of 15.2 and evidence of a UTI and was started on Rocephin. Blood sugar on admission was 30 she was given dextrose. Acute abdominal series shows chronic changes and cardiomegaly without new suspicious acute pulmonary process. Overall nonspecific but likely nonobstructive bowel gas pattern. Fairly moderate diffuse colonic fecal stasis be demonstrated. Patient given stool softeners MiraLAX and suppository in the ER. No results yet. Patient denies any chest pain or shortness of breath denies cough. Denies any nausea or vomiting. Denies any burning with urination. Denies any weakness on one side of the body. Patient's mentation has returned to baseline. Review of Systems Please refer to HPI otherwise unremarkable Past Medical History Past Medical History: Atrial Fibrillation, Coronary Artery Disease (CAD), Heart Failure, COPD, Diabetes Mellitus, GERD/Reflux, Hyperlipidemia, Hypertension, Memory Impairment Additional Past Medical History / Comment(s): COPD severe with an FEV1 of 36%, chronic hypoxic respiratory failure, non-small cell lung cancer with a previous left lower lobe resection, chronic atrial fibrillation, hypertension, coronary artery disease, diabetes mellitus, meningitis back in the 70s History of Any Multi-Drug Resistant Organisms: None Reported Past Surgical History: Heart Catheterization With Stent, Tubal Ligation Additional Past Surgical History / Comment(s): Left lower lobe lung removed, right shoulder rotator cuff.egd w/ bx Past Anesthesia/Blood Transfusion Reactions: No Reported Reaction Additional Past Anesthesia/Blood Transfusion Reaction / Comment(s): Claustrophobia. past blood transfusion-no reaction Date of Last Stent Placement:: unk Smoking Status: Former smoker - Past Family History Mother History Unknown: Yes Family Medical History: No Reported History Father Family Medical History: Diabetes Mellitus Medications and Allergies Home Medications Medication Instructions Recorded Confirmed Type Atorvastatin [Lipitor] 40 mg PO HS 11/17/16 02/07/18 History Cholecalciferol [Vitamin D3] 4,000 unit PO DAILY 11/17/16 02/07/18 History Cyanocobalamin [Vitamin B-12] 500 mcg PO DAILY 11/17/16 02/07/18 History Fluticasone/Salmeterol [Advair 1 puff INHALATION RT-BID 11/17/16 02/07/18 History 250-50 Diskus] Glimepiride [Amaryl] 4 mg PO AC-BID 11/17/16 02/07/18 History Insulin Aspart [NovoLOG Flexpen] 20 units SQ AC-TID 11/17/16 02/07/18 History Insulin Degludec [Tresiba 98 unit SQ DAILY 11/17/16 02/07/18 History Flextouch U-200] Albuterol Inhaler [Ventolin Hfa 2 puff INHALATION RT-BID 07/22/17 02/07/18 History Inhaler] Loratadine [Claritin] 10 mg PO DAILY 07/22/17 02/07/18 History metFORMIN HCL [Glucophage] 500 mg PO BID 07/22/17 02/07/18 History Apixaban [Eliquis] 5 mg PO BID #60 tab 08/02/17 02/07/18 Rx Losartan [Cozaar] 100 mg PO DAILY #30 tab 08/02/17 02/07/18 Rx Spironolactone [Aldactone] 25 mg PO DAILY #30 tab 08/02/17 02/07/18 Rx Furosemide [Lasix] 40 mg PO BID 12/31/17 02/07/18 History Pantoprazole Sodium [Protonix] 40 mg PO BID #60 tablet. 01/05/18 02/07/18 Rx Acetaminophen Tab [Tylenol] 1,000 mg PO Q6HR PRN tab 02/01/18 02/07/18 Rx Diltiazem Oral [Cardizem*] 60 mg PO TID tab 02/01/18 02/07/18 Rx Docusate [Colace] 100 mg PO DAILY cap 02/01/18 02/07/18 Rx Ferrous Sulfate [Iron (65 MG 325 mg PO BID tab 02/01/18 02/07/18 Rx Elemental)] Ipratropium-Albuterol Nebulize 3 ml INHALATION RT-QID ampul.neb 02/01/18 Rx [Duoneb 0.5 mg-3 mg/3 ml Soln] Metoprolol Succinate (ER) [Toprol 100 mg PO DAILY tab.er.24h 02/01/18 02/07/18 Rx XL] Cefuroxime Axetil [Ceftin] 500 mg PO BID #14 tab 02/03/18 02/07/18 Rx Polyethylene Glycol 3350 [Miralax] 17 gm PO DAILY #30 packet 02/03/18 02/07/18 Rx Gabapentin [Neurontin] 800 mg PO TID 02/07/18 02/07/18 History Allergies Allergy/AdvReac Type Severity Reaction Status Date / Time codeine Allergy Unknown Verified 02/07/18 16:56 Physical Exam Vitals: Vital Signs Temp Pulse Pulse Resp BP BP Pulse Ox 02/08/18 08:30 97.6 F 85 18 164/70 98 02/08/18 07:00 90 19 199/72 96 02/08/18 04:19 68 16 161/72 02/08/18 03:55 97.4 F L 78 16 171/70 97 02/08/18 01:00 82 19 176/75 02/07/18 23:45 81 16 199/83 95 02/07/18 21:58 87 20 140/69 99 02/07/18 21:00 72 20 153/67 97 02/07/18 19:00 97.1 F L 75 16 173/77 97 02/07/18 18:23 73 22 148/74 96 02/07/18 16:00 97.0 F L 79 24 189/75 93 L Intake and Output 02/07/18 02/08/18 02/08/18 22:59 06:59 14:59 Other: Weight 95.254 kg Head normocephalic Neck supple Lungs clear to auscultation bilaterally no wheezing or crackles Heart regular rate and rhythm S1-S2, no rub or gallop Abdomen is soft nontender nondistended positive bowel sounds no hepatosplenomegaly Extremities no edema Neuro alert and orientated to 3 Results CBC & Chem 7: 02/07/18 16:30 02/07/18 16:30 Labs: Abnormal Lab Results - Last 24 Hours (Table) 02/07/18 02/07/18 02/07/18 Range/Units 16:01 16:18 16:30 WBC 15.2 H (3.8-10.6) k/uL Hgb 10.6 L (11.4-16.0) gm/dL MCHC 30.0 L (31.0-37.0) g/dL RDW 15.9 H (11.5-15.5) % Neutrophils # 13.0 H (1.3-7.7) k/uL APTT (22.0-30.0) sec Sodium (137-145) mmol/L Potassium (3.5-5.1) mmol/L Chloride (98-107) mmol/L BUN (7-17) mg/dL Glucose (74-99) mg/dL POC Glucose (mg/dL) 168 H (75-99) mg/dL Plasma Lactic Acid Colby (0.7-2.0) mmol/L Urine Appearance Cloudy H (Clear) Urine Protein 2+ H (Negative) Ur Leukocyte Esterase Large H (Negative) Urine WBC 123 H (0-5) /hpf Urine WBC Clumps Many H (None) /hpf Ur Squamous Epith Cells 8 H (0-4) /hpf Amorphous Sediment Occasional H (None) /hpf Urine Bacteria Rare H (None) /hpf Hyaline Casts 19 H (0-2) /lpf Urine Mucus Rare H (None) /hpf Urine Yeast (Budding) Occasional H (None) /hpf 02/07/18 02/07/18 02/07/18 Range/Units 16:30 16:30 16:30 WBC (3.8-10.6) k/uL Hgb (11.4-16.0) gm/dL MCHC (31.0-37.0) g/dL RDW (11.5-15.5) % Neutrophils # (1.3-7.7) k/uL APTT 20.9 L (22.0-30.0) sec Sodium 134 L (137-145) mmol/L Potassium 5.3 H (3.5-5.1) mmol/L Chloride 95 L (98-107) mmol/L BUN 29 H (7-17) mg/dL Glucose 119 H (74-99) mg/dL POC Glucose (mg/dL) (75-99) mg/dL Plasma Lactic Acid Colby 2.9 H* (0.7-2.0) mmol/L Urine Appearance (Clear) Urine Protein (Negative) Ur Leukocyte Esterase (Negative) Urine WBC (0-5) /hpf Urine WBC Clumps (None) /hpf Ur Squamous Epith Cells (0-4) /hpf Amorphous Sediment (None) /hpf Urine Bacteria (None) /hpf Hyaline Casts (0-2) /lpf Urine Mucus (None) /hpf Urine Yeast (Budding) (None) /hpf 02/08/18 02/08/18 02/08/18 Range/Units 02:54 03:04 04:07 WBC (3.8-10.6) k/uL Hgb (11.4-16.0) gm/dL MCHC (31.0-37.0) g/dL RDW (11.5-15.5) % Neutrophils # (1.3-7.7) k/uL APTT (22.0-30.0) sec Sodium (137-145) mmol/L Potassium (3.5-5.1) mmol/L Chloride (98-107) mmol/L BUN (7-17) mg/dL Glucose (74-99) mg/dL POC Glucose (mg/dL) 30 L 186 H 117 H (75-99) mg/dL Plasma Lactic Acid Colby (0.7-2.0) mmol/L Urine Appearance (Clear) Urine Protein (Negative) Ur Leukocyte Esterase (Negative) Urine WBC (0-5) /hpf Urine WBC Clumps (None) /hpf Ur Squamous Epith Cells (0-4) /hpf Amorphous Sediment (None) /hpf Urine Bacteria (None) /hpf Hyaline Casts (0-2) /lpf Urine Mucus (None) /hpf Urine Yeast (Budding) (None) /hpf 02/08/18 Range/Units 08:28 WBC (3.8-10.6) k/uL Hgb (11.4-16.0) gm/dL MCHC (31.0-37.0) g/dL RDW (11.5-15.5) % Neutrophils # (1.3-7.7) k/uL APTT (22.0-30.0) sec Sodium (137-145) mmol/L Potassium (3.5-5.1) mmol/L Chloride (98-107) mmol/L BUN (7-17) mg/dL Glucose (74-99) mg/dL POC Glucose (mg/dL) 70 L (75-99) mg/dL Plasma Lactic Acid Colby (0.7-2.0) mmol/L Urine Appearance (Clear) Urine Protein (Negative) Ur Leukocyte Esterase (Negative) Urine WBC (0-5) /hpf Urine WBC Clumps (None) /hpf Ur Squamous Epith Cells (0-4) /hpf Amorphous Sediment (None) /hpf Urine Bacteria (None) /hpf Hyaline Casts (0-2) /lpf Urine Mucus (None) /hpf Urine Yeast (Budding) (None) /hpf Microbiology - Last 24 Hours (Table) 02/07/18 16:18 Urine Culture - Preliminary Urine,Voided Thrombosis Risk Factor Assmnt - Choose All That Apply Any of the Below Risk Factors Present?: Yes Each Factor Represents 1 point: Abnormal pulmonary function (COPD), Acute MD Other Risk Factors: Yes Each Risk Factor Represents 2 Points: Age 61-74 years Thrombosis Risk Factor Assessment Total Risk Factor Score: 4 Thrombosis Risk Factor Assessment Level: Moderate Risk Assessment and Plan Assessment: 1. Generalized weakness likely multifactorial due to deconditioning from recent hospitalization as well as UTI and hypoglycemia. Physical therapy consulted 2. Acute metabolic encephalopathy resolved likely secondary to UTI and hyperglycemia 3. UTI: Check urine culture. Patient started on Rocephin in the emergency room 4. Accelerated hypertension present on admission: Patient given IV Vasotec. Resume blood pressure medications 5. Constipation with fecal stasis noted on x-ray. Patient given stool softeners, MiraLAX and suppository. We'll monitor for results 6. Hypoglycemia with a known history of diabetes mellitus type 2. At this time we'll hold patient's insulin and oral hypoglycemics place her on a sliding scale coverage. 7. History of chronic persistent atrial fibrillation: EKG showing A. fib heart rate controlled. Continue Eliquis for anticoagulation and metoprolol 8. History of COPD stable resume nebulizer treatments 9. Chronic diastolic congestive heart failure. No evidence of exacerbation at this time. Continue Lasix 10. History of lung cancer with prior left lobectomy 11. Recent hospitalization with bronchitis with possible pneumonia and COPD and congestive heart failure exacerbation. GI prophylaxis Protonix and DVT prophylaxis Eliquis Time with Patient: Greater than 30 (Greater than 50% of the total time spent in counseling and coordination of care.I performed an examination of the patient and discussed their management with the physician Silica Mixer Operator. I have reviewed the Physician Silica Mixer Operator's notes and agree with the documented findings and plan of care)
[2018-02-08] MEDS: PANTOPRAZOLE 40 MG TABLET PO SCH ×2 (10:54→17:19)
[2018-02-08] MEDS: LORATADINE 10 MG TAB PO SCH (10:54)
[2018-02-08] MEDS: METOPROLOL SUCCINATE (ER) 100 MG TAB.ER.24H PO SCH (10:54)
[2018-02-08] MEDS: LOSARTAN 50 MG TAB PO SCH (10:55)
[2018-02-08] MEDS: FUROSEMIDE 40 MG TAB PO SCH ×2 (10:55→22:17)
[2018-02-08] MEDS: DILTIAZEM ORAL 60 MG TAB PO SCH ×3 (10:55→22:16)
[2018-02-08] MEDS: APIXABAN 5 MG TAB PO SCH ×2 (10:55→22:17)
[2018-02-08] MEDS: ACETAMINOPHEN TAB 500 MG TAB PO PRN (10:57)
[2018-02-08 10:58] LABS: Glucose,Whole Blood 71 mg/dL (75-99)
[2018-02-08 11:11] LABS: Basophils % (A) 0 %; Eosinophils # (A) 0.2 k/uL (0-0.7); Eosinophils % (A) 1 %; HCT 33.2 % (34.0-46.0); HGB 10.1 gm/dL (11.4-16.0); Hypochromasia Marked; Lymphocytes # (A) 1.8 k/uL (1.0-4.8); Lymphocytes % (A) 13 %; MCH 27.1 pg (25.0-35.0); MCHC 30.4 g/dL (31.0-37.0); MCV 89.1 fL (80.0-100.0); Mean Platelet Volume 7.2; Monocytes # (A) 0.7 k/uL (0-1.0); Monocytes % (A) 5 %; Neutrophils # (A) 11.2 k/uL (1.3-7.7); Neutrophils % (A) 80 %; Platelet Count 341 k/uL (150-450); Poikilocytosis Slight; RBC 3.72 m/uL (3.80-5.40); RDW 15.4 % (11.5-15.5)
[2018-02-08] MEDS: INSULIN ASPART 100 UNIT/ML 1 ML 10 ML VIAL SQ SCH ×3 (11:11→22:09)
[2018-02-08] MEDS: IPRATROPIUM-ALBUTEROL 3 ML NEB INHALATION SCH ×3 (11:29→21:06)
[2018-02-08] MEDS: GLYCERIN ADULT SUPPOSITORY 1 EACH RECTAL SCH (11:45)
[2018-02-08 15:10] LABS: Albumin 3.3 g/dL (3.5-5.0); Calcium 8.7 mg/dL (8.4-10.2); Potassium 4.9 mmol/L (3.5-5.1); Total Bilirubin 0.2 mg/dL (0.2-1.3); Total Protein 5.9 g/dL (6.3-8.2)
[2018-02-08] MEDS: GABAPENTIN 400 MG CAP PO SCH ×2 (17:19→22:17)
[2018-02-08] MEDS: FERROUS SULFATE 325 MG TAB PO SCH (17:19)
[2018-02-08 17:28] LABS: Glucose,Whole Blood 56 mg/dL (75-99)
[2018-02-08 18:14] LABS: Glucose,Whole Blood 65 mg/dL (75-99)
[2018-02-08 18:31] LABS: Glucose,Whole Blood 89 mg/dL (75-99)
[2018-02-08] MEDS: ONDANSETRON 4 MG/2 ML VIAL IVP PRN (19:37)
[2018-02-08 20:24] LABS: Glucose,Whole Blood 103 mg/dL (75-99)
[2018-02-08] MEDS: SYMBICORT 80-4.5 MCG INHALER INHALATION SCH ×2 (21:06→21:19)
[2018-02-08] MEDS: ATORVASTATIN 40 MG TAB PO SCH (22:17)
[2018-02-09 01:58] LABS: Glucose,Whole Blood 64 mg/dL (75-99)
[2018-02-09 03:09] LABS: Glucose,Whole Blood 80 mg/dL (75-99)
[2018-02-09] MEDS: ONDANSETRON 4 MG/2 ML VIAL IVP PRN ×2 (03:24→18:22)
[2018-02-09 07:16] LABS: Glucose,Whole Blood 76 mg/dL (75-99)
[2018-02-09] MEDS: INSULIN ASPART 100 UNIT/ML 1 ML 10 ML VIAL SQ SCH ×4 (07:57→22:37)
[2018-02-09] MEDS: FERROUS SULFATE 325 MG TAB PO SCH ×2 (08:06→17:19)
[2018-02-09] MEDS: LOSARTAN 50 MG TAB PO SCH (08:06)
[2018-02-09] MEDS: SENNOSIDES-DOCUSATE SODIUM 1 EACH TAB PO SCH ×3 (08:07→22:37)
[2018-02-09] MEDS: METOPROLOL SUCCINATE (ER) 100 MG TAB.ER.24H PO SCH (08:07)
[2018-02-09] MEDS: DILTIAZEM ORAL 60 MG TAB PO SCH ×3 (08:07→22:37)
[2018-02-09] MEDS: FUROSEMIDE 40 MG TAB PO SCH ×2 (08:07→22:37)
[2018-02-09] MEDS: POLYETHYLENE GLYCOL 3350 17 GM POWD.PACK PO SCH (08:07)
[2018-02-09] MEDS: PANTOPRAZOLE 40 MG TABLET PO SCH ×2 (08:07→17:19)
[2018-02-09] MEDS: SPIRONOLACTONE 25 MG TAB PO SCH (08:07)
[2018-02-09] MEDS: APIXABAN 5 MG TAB PO SCH ×2 (08:07→22:37)
[2018-02-09] MEDS: cefTRIAXone IN SWFI 1,000 MG/10 ML SYRINGE IVP SCH (08:07)
[2018-02-09] MEDS: LORATADINE 10 MG TAB PO SCH (08:07)
[2018-02-09] MEDS: GABAPENTIN 400 MG CAP PO SCH ×3 (08:07→22:37)
[2018-02-09] MEDS: ACETAMINOPHEN TAB 500 MG TAB PO PRN ×2 (08:12→18:41)
[2018-02-09] MEDS: IPRATROPIUM-ALBUTEROL 3 ML NEB INHALATION SCH ×4 (08:30→20:11)
[2018-02-09] MEDS: SYMBICORT 80-4.5 MCG INHALER INHALATION SCH ×2 (08:30→20:11)
[2018-02-09 08:45] LABS: Basophils % (A) 0 %; Eosinophils # (A) 0.2 k/uL (0-0.7); Eosinophils % (A) 2 %; HCT 31.8 % (34.0-46.0); HGB 9.6 gm/dL (11.4-16.0); Hypochromasia Marked; Lymphocytes # (A) 2.7 k/uL (1.0-4.8); Lymphocytes % (A) 22 %; MCH 26.6 pg (25.0-35.0); MCHC 30.1 g/dL (31.0-37.0); MCV 88.2 fL (80.0-100.0); Mean Platelet Volume 8.2; Monocytes # (A) 0.8 k/uL (0-1.0); Monocytes % (A) 6 %; Neutrophils # (A) 8.6 k/uL (1.3-7.7); Neutrophils % (A) 69 %; Platelet Count 312 k/uL (150-450); RBC 3.61 m/uL (3.80-5.40); RDW 15.8 % (11.5-15.5); WBC 12.4 k/uL (3.8-10.6)
--- NOTE | 2018-02-09 08:50 | CDI ---
Last Revision, September 2017 Documentation Clarification Form Date: 02/09/18 From: Ainsley Burnette Admit Date: 02/07/2018 5:27:00 PM Patient Name: Arminda Tavarez Visit Number: [id number] ATTENTION: The Clinical Documentation Specialists (CDI) and [facility] Coding Staff appreciate your assistance in clarifying documentation. Please respond to the clarification below the line at the bottom and electronically sign. The CDI & [facility] Coding staff will review the response and follow-up if needed. Please note: Queries are made part of the Legal Health Record. If you have any questions, please contact the author of this message via ITS. Dr. Ramonita Sorenson, Documentation and location in medical record included possible pneumonia and UTI. History/Risk Factors: COPD, CHF, chronic A-FIB , DM 2, lung cancer , hyperlipidemia, UTI, pneumonia presented with generalized weakness, confusion Clinical Indicators: WBC on admission: 15.2 Lactic acid: on admission 2.9 Vitals signs on admission: T 97.0, P 79, R 24, 189/75, 93% RA UTI Treatment: Antibiotics: IVP Rocephin IV Bolus: x2 Monitor Labs In your professional opinion, please clarify if these findings signify one of the following conditions, whether the condition is POA, and cause, if known: Sepsis ruled in Sepsis ruled out Other, please specify Unable to determine Present on Admission: Yes No Please continue to document in your progress notes, under the line below and discharge summary in order to capture severity of illness and risk of mortality. Include clinical findings that support your diagnosis. MTDD
[2018-02-09 08:59] LABS: Albumin 3.1 g/dL (3.5-5.0); Calcium 9.2 mg/dL (8.4-10.2); Total Bilirubin 0.1 mg/dL (0.2-1.3); Total Protein 5.7 g/dL (6.3-8.2)
[2018-02-09 11:05] LABS: Glucose,Whole Blood 137 mg/dL (75-99)
[2018-02-09] MEDS: GLYCERIN ADULT SUPPOSITORY 1 EACH RECTAL SCH (11:39)
[2018-02-09] MEDS: CYANOCOBALAMIN 500 MCG TAB PO SCH (11:39)
[2018-02-09] MEDS: CHOLECALCIFEROL 1,000 UNIT TAB PO SCH (11:39)
--- NOTE | 2018-02-09 12:15 | P.PN ---
Subjective Progress Note Date: 02/09/18 This is a 72-year-old female, patient of Dr. Chery. She has a known past medical history of COPD, congestive heart failure, chronic atrial fibrillation, diabetes mellitus type 2, lung cancer with prior left lobectomy and hyperlipidemia. Patient was just recently discharged from [facility] on 02/03/2018 and at that time she was treated for congestive heart failure exacerbation, COPD and pneumonia. Patient reports having a bowel movement the day after discharge. However, she continued to be very weak was having some confusion. The at bedside reports that the patient was overall so weak she had difficulty getting from the bathroom to the bed. There is no actual falling or injury. But she did need assistance. Both her legs and arms were very weak. Patient felt that she was feverish at home. Also is having evidence of hypoglycemia poor oral intake and decrease in appetite. On admission she had a white count of 15.2 and evidence of a UTI and was started on Rocephin. Blood sugar on admission was 30 she was given dextrose. Acute abdominal series shows chronic changes and cardiomegaly without new suspicious acute pulmonary process. Overall nonspecific but likely nonobstructive bowel gas pattern. Fairly moderate diffuse colonic fecal stasis be demonstrated. Patient given stool softeners MiraLAX and suppository in the ER. No results yet. Patient denies any chest pain or shortness of breath denies cough. Denies any nausea or vomiting. Denies any burning with urination. Denies any weakness on one side of the body. Patient's mentation has returned to baseline. On 02/09/2018 patient is alert and oriented 3 she is complaining of abdominal discomfort, abdominal distention, and constipation for the last 5 days she is also complaining of epigastric burning sensation otherwise she denies any complaints there is no chest pain or shortness of breath no fever or chills no cough no dizziness no nausea or vomiting and no urinary symptoms Objective - Vital Signs Vital signs: Vital Signs Temp 98.4 F 02/09/18 07:20 Pulse 91 02/09/18 08:30 Resp 20 02/09/18 07:20 BP 98/47 02/09/18 07:20 Pulse Ox 97 02/09/18 08:30 Intake & Output 02/08/18 02/09/18 02/09/18 18:59 06:59 18:59 Intake Total 800 Balance 800 Intake: Oral 800 Other: Voiding Method Toilet Toilet Toilet # Voids 2 # Bowel Movements 0 - Exam Head normocephalic and atraumatic Neck supple no JVD no goiter no lymphadenopathy Lungs clear to auscultation bilaterally no wheezing or crackles Heart regular rate and rhythm S1-S2, no rub or gallop Abdomen is soft with mild diffuse tenderness and mild distention positive bowel sounds no hepatosplenomegaly Extremities no edema no cyanosis or clubbing Neuro alert and orientated to 3, no gross focal deficit - Labs CBC & Chem 7: 02/09/18 07:38 02/09/18 07:38 Labs: Abnormal Lab Results - Last 24 Hours (Table) 02/08/18 02/08/18 02/08/18 Range/Units 14:45 17:23 18:02 WBC (3.8-10.6) k/uL RBC (3.80-5.40) m/uL Hgb (11.4-16.0) gm/dL Hct (34.0-46.0) % MCHC (31.0-37.0) g/dL RDW (11.5-15.5) % Neutrophils # (1.3-7.7) k/uL BUN 22 H (7-17) mg/dL Glucose 64 L (74-99) mg/dL POC Glucose (mg/dL) 56 L 65 L (75-99) mg/dL Total Bilirubin (0.2-1.3) mg/dL Total Protein 5.9 L (6.3-8.2) g/dL Albumin 3.3 L (3.5-5.0) g/dL 02/08/18 02/09/18 02/09/18 Range/Units 20:22 01:58 07:38 WBC 12.4 H (3.8-10.6) k/uL RBC 3.61 L (3.80-5.40) m/uL Hgb 9.6 L (11.4-16.0) gm/dL Hct 31.8 L (34.0-46.0) % MCHC 30.1 L (31.0-37.0) g/dL RDW 15.8 H (11.5-15.5) % Neutrophils # 8.6 H (1.3-7.7) k/uL BUN (7-17) mg/dL Glucose (74-99) mg/dL POC Glucose (mg/dL) 103 H 64 L (75-99) mg/dL Total Bilirubin (0.2-1.3) mg/dL Total Protein (6.3-8.2) g/dL Albumin (3.5-5.0) g/dL 02/09/18 02/09/18 Range/Units 07:38 11:03 WBC (3.8-10.6) k/uL RBC (3.80-5.40) m/uL Hgb (11.4-16.0) gm/dL Hct (34.0-46.0) % MCHC (31.0-37.0) g/dL RDW (11.5-15.5) % Neutrophils # (1.3-7.7) k/uL BUN 22 H (7-17) mg/dL Glucose 60 L (74-99) mg/dL POC Glucose (mg/dL) 137 H (75-99) mg/dL Total Bilirubin 0.1 L (0.2-1.3) mg/dL Total Protein 5.7 L (6.3-8.2) g/dL Albumin 3.1 L (3.5-5.0) g/dL Microbiology - Last 24 Hours (Table) 02/07/18 16:18 Urine Culture - Preliminary Urine,Voided Group D Enterococcus Assessment and Plan Plan: 1. Generalized weakness likely multifactorial due to deconditioning from recent hospitalization as well as UTI and hypoglycemia. Physical therapy consulted 2. Acute metabolic encephalopathy resolved likely secondary to UTI and hyperglycemia 3. UTI: Check urine culture. Patient started on Rocephin in the emergency room 4. Accelerated hypertension present on admission: Patient given IV Vasotec. Resume blood pressure medications 5. Constipation with fecal stasis noted on x-ray. Patient given stool softeners, MiraLAX and suppository. We'll monitor for results 6. Hypoglycemia with a known history of diabetes mellitus type 2. At this time we'll hold patient's insulin and oral hypoglycemics place her on a sliding scale coverage. 7. History of chronic persistent atrial fibrillation: EKG showing A. fib heart rate controlled. Continue Eliquis for anticoagulation and metoprolol 8. History of COPD stable resume nebulizer treatments 9. Chronic diastolic congestive heart failure. No evidence of exacerbation at this time. Continue Lasix 10. History of lung cancer with prior left lobectomy 11. Recent hospitalization with bronchitis with possible pneumonia and COPD and congestive heart failure exacerbation. 12. Abdominal complaints of epigastric burning constipation and abdominal distention and abdominal pain at this time will start patient on a bowel regimen was lactulose and milk of magnesia Will consult gastroenterology GI prophylaxis Protonix and DVT prophylaxis Eliquis
[2018-02-09] MEDS ORDERED: MAGNESIUM HYDROXIDE 2,400 MG/10 ML CUP PO PRN (12:17)
[2018-02-09] MEDS ORDERED: MAGNESIUM CITRATE 296 ML BOTTLE PO ONE (12:28)
[2018-02-09] MEDS: LACTULOSE 20 GM/30 ML CUP PO SCH ×3 (13:45→23:39)
[2018-02-09 17:00] LABS: Glucose,Whole Blood 240 mg/dL (75-99)
[2018-02-09] MEDS: CALCIUM CARBONATE 500 MG CHEWABLE PO PRN (18:39)
[2018-02-09 20:40] LABS: Glucose,Whole Blood 320 mg/dL (75-99)
[2018-02-09] MEDS: ATORVASTATIN 40 MG TAB PO SCH (22:37)
[2018-02-09 22:45] LABS: Glucose,Whole Blood 326 mg/dL (75-99)
[2018-02-10 02:52] LABS: Glucose,Whole Blood 220 mg/dL (75-99)
[2018-02-10 07:13] LABS: Glucose,Whole Blood 158 mg/dL (75-99)
[2018-02-10] MEDS: IPRATROPIUM-ALBUTEROL 3 ML NEB INHALATION SCH ×4 (08:08→20:22)
[2018-02-10] MEDS: SYMBICORT 80-4.5 MCG INHALER INHALATION SCH ×2 (08:08→20:22)
[2018-02-10] MEDS: DILTIAZEM ORAL 60 MG TAB PO SCH ×3 (09:14→20:30)
[2018-02-10] MEDS: FUROSEMIDE 40 MG TAB PO SCH ×2 (09:14→20:28)
[2018-02-10] MEDS: METOPROLOL SUCCINATE (ER) 100 MG TAB.ER.24H PO SCH (09:14)
[2018-02-10] MEDS: PANTOPRAZOLE 40 MG TABLET PO SCH ×2 (09:14→18:14)
[2018-02-10] MEDS: LACTULOSE 20 GM/30 ML CUP PO SCH ×3 (09:15→20:30)
[2018-02-10] MEDS: FERROUS SULFATE 325 MG TAB PO SCH ×2 (09:15→18:14)
[2018-02-10] MEDS: LORATADINE 10 MG TAB PO SCH (09:15)
[2018-02-10] MEDS: INSULIN ASPART 100 UNIT/ML 1 ML 10 ML VIAL SQ SCH ×4 (09:15→20:45)
[2018-02-10] MEDS: GABAPENTIN 400 MG CAP PO SCH ×3 (09:15→20:28)
[2018-02-10] MEDS: LOSARTAN 50 MG TAB PO SCH (09:15)
[2018-02-10] MEDS: APIXABAN 5 MG TAB PO SCH ×2 (09:15→20:29)
[2018-02-10] MEDS: SPIRONOLACTONE 25 MG TAB PO SCH (09:15)
[2018-02-10] MEDS: POLYETHYLENE GLYCOL 3350 17 GM POWD.PACK PO SCH (09:16)
[2018-02-10] MEDS: GLYCERIN ADULT SUPPOSITORY 1 EACH RECTAL SCH (09:16)
--- NOTE | 2018-02-10 09:21 | P.CONS ---
History of Present Illness - Reason for Consult Consult date: 02/10/18 Constipation Requesting physician: Ramonita Sorenson - History of Present Illness 72-year-old female recently hospitalized and discharged last week secondary to shortness of breath A. fib with RVR with underlying history of severe COPD O2 dependent. She has a history of prior lung malignancy. During her last hospitalization radiographic imaging suggested a right subpleural mass possible malignancy. She was evaluated a week ago by the GI service in regards to constipation. She was given multiple laxatives enemas with good response and was passing nonbloody bowel movements prior to discharge. Outpatient colonoscopy was discussed during the last admission secondary to her last screening several years ago. She was admitted yesterday with reports of shakiness and constipation she had not passed a bowel movement for 3 days. She was provided some laxatives or last 24 hours and now is passing bowel movements without blood. Denies abdominal pain. Presently this morning she is tolerating her breakfast. Afebrile. Acute abdominal series nonobstructive bowel gas pattern. Review of Systems Constitutional: Denies fever, chills, sweats, weight gain, or loss. HEENT: Negative for migraines, blurred vision or loss, earaches, drainage, tinnitus, oral mucosal lesions, dysphagia, or odynophagia. CARDIAC: History of CHF. Hyperlipidemia. Hypertension. Negative for chest pain, history of atrial fibrillation, or palpitation. RESPIRATORY: Chronic shortness of breath O2 dependent history of lung carcinoma , hemoptysis, cough, or sputum production. GI: See HPI for pertinent findings. : Negative for hematuria, urgency, frequency, polyuria, or dysuria. GYNc: Denies possibility of . Negative vaginal discharge. MUSCULOSKELETAL: Negative for muscle aches, swelling, arthritis, and arthralgias. NEUROLOGIC: Negative for stroke or TIA. ENDOCRINE: History of diabetes mellitus. Negative for thyroid problems. SKIN: Negative for rash or itching. PSYCHIATRIC: Negative history for depression and anxiety Past Medical History Past Medical History: Atrial Fibrillation, Coronary Artery Disease (CAD), Heart Failure, COPD, Diabetes Mellitus, GERD/Reflux, Hyperlipidemia, Hypertension, Memory Impairment Additional Past Medical History / Comment(s): COPD severe with an FEV1 of 36%, chronic hypoxic respiratory failure, non-small cell lung cancer with a previous left lower lobe resection, chronic atrial fibrillation, hypertension, coronary artery disease, diabetes mellitus, meningitis back in the 70s History of Any Multi-Drug Resistant Organisms: VRE Year Discovered:: 02/07/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 past blood transfusion-no reaction Date of Last Stent Placement:: unk Smoking Status: Former smoker - Past Family History Mother History Unknown: Yes Family Medical History: No Reported History Father Family Medical History: Diabetes Mellitus Medications and Allergies Home Medications Medication Instructions Recorded Confirmed Type Atorvastatin [Lipitor] 40 mg PO HS 11/17/16 02/07/18 History Cholecalciferol [Vitamin D3] 4,000 unit PO DAILY 11/17/16 02/07/18 History Cyanocobalamin [Vitamin B-12] 500 mcg PO DAILY 11/17/16 02/07/18 History Fluticasone/Salmeterol [Advair 1 puff INHALATION RT-BID 11/17/16 02/07/18 History 250-50 Diskus] Glimepiride [Amaryl] 4 mg PO AC-BID 11/17/16 02/07/18 History Insulin Aspart [NovoLOG Flexpen] 20 units SQ AC-TID 11/17/16 02/07/18 History Insulin Degludec [Tresiba 98 unit SQ DAILY 11/17/16 02/07/18 History Flextouch U-200] Albuterol Inhaler [Ventolin Hfa 2 puff INHALATION RT-BID 07/22/17 02/07/18 History Inhaler] Loratadine [Claritin] 10 mg PO DAILY 07/22/17 02/07/18 History metFORMIN HCL [Glucophage] 500 mg PO BID 07/22/17 02/07/18 History Apixaban [Eliquis] 5 mg PO BID #60 tab 08/02/17 02/07/18 Rx Losartan [Cozaar] 100 mg PO DAILY #30 tab 08/02/17 02/07/18 Rx Spironolactone [Aldactone] 25 mg PO DAILY #30 tab 08/02/17 02/07/18 Rx Furosemide [Lasix] 40 mg PO BID 12/31/17 02/07/18 History Pantoprazole Sodium [Protonix] 40 mg PO BID #60 tablet.dr 01/05/18 02/07/18 Rx Acetaminophen Tab [Tylenol] 1,000 mg PO Q6HR PRN tab 02/01/18 02/07/18 Rx Diltiazem Oral [Cardizem*] 60 mg PO TID tab 02/01/18 02/07/18 Rx Docusate [Colace] 100 mg PO DAILY cap 02/01/18 02/07/18 Rx Ferrous Sulfate [Iron (65 MG 325 mg PO BID tab 02/01/18 02/07/18 Rx Elemental)] Ipratropium-Albuterol Nebulize 3 ml INHALATION RT-QID ampul.neb 02/01/18 Rx [Duoneb 0.5 mg-3 mg/3 ml Soln] Metoprolol Succinate (ER) [Toprol 100 mg PO DAILY tab.er.24h 02/01/18 02/07/18 Rx XL] Cefuroxime Axetil [Ceftin] 500 mg PO BID #14 tab 02/03/18 02/07/18 Rx Polyethylene Glycol 3350 [Miralax] 17 gm PO DAILY #30 packet 02/03/18 02/07/18 Rx Gabapentin [Neurontin] 800 mg PO TID 02/07/18 02/07/18 History Allergies Allergy/AdvReac Type Severity Reaction Status Date / Time codeine Allergy Unknown Verified 02/07/18 16:56 Physical Exam Vitals: Vital Signs Temp Pulse Pulse Resp BP Pulse Ox 02/10/18 08:21 94 02/10/18 08:11 88 02/10/18 05:40 98.1 F 72 16 140/69 95 02/09/18 22:35 97.9 F 77 16 136/63 95 02/09/18 20:23 90 02/09/18 20:12 88 02/09/18 16:20 90 02/09/18 16:02 92 99 02/09/18 15:20 98 F 68 18 100/53 95 02/09/18 12:58 97 02/09/18 12:45 95 Intake and Output 02/09/18 02/10/18 02/10/18 22:59 06:59 14:59 Other: Voiding Method Toilet Toilet # Voids 1 1 General appearance: The patient is alert, oriented, in no acute distress. HET: Head is normocephalic and atraumatic. Pupils are equal and reactive. Oropharynx is clear without lesions. Neck: Supple without lymphadenopathy. Trachea midline. Heart: S1 S2. Regular rate and rhythm. Lungs: No crackles or wheezes are heard. Slight diminishment in bilateral bases. Abdomen: Soft, nontender, nondistended with bowel sounds. No peritoneal signs. No palpable organomegaly or masses. Extremities: Normal skin color and turgor. No cyanosis, rash, ulceration, clubbing, or edema. Radial and pedal pulses are 2/4 bilaterally. Neurological: No focal deficits. Strength and sensation are grossly intact. Results CBC & Chem 7: 02/09/18 07:38 02/09/18 07:38 Labs: Abnormal Lab Results - Last 24 Hours (Table) 02/09/18 02/09/18 02/09/18 Range/Units 11:03 16:56 20:35 POC Glucose (mg/dL) 137 H 240 H 320 H (75-99) mg/dL 02/09/18 02/10/18 02/10/18 Range/Units 22:40 02:50 07:11 POC Glucose (mg/dL) 326 H 220 H 158 H (75-99) mg/dL Microbiology - Last 24 Hours (Table) 02/07/18 16:18 Urine Culture - Final Urine,Voided Enterococcus faecium VRE Assessment and Plan (1) Constipation Narrative/Plan: 72-year-old female admitted with shakiness and constipation provided laxatives now passing bowel movement without abdominal pain. She has an underlying history of severe COPD O2 dependent with prior history of lung carcinoma, atrial fibrillation maintained on anticoagulation with recent hospitalization and discharge secondary to shortness of breath A. fib with RVR, radiographic imaging reported right lower lobe subpleural mass possible malignancy. Current Visit: Yes Status: Acute Code(s): K59.00 - CONSTIPATION, UNSPECIFIED SNOMED Code(s): 82734425 Plan: 1. MiraLAX 17 g daily. Senokot as 2 tabs twice a day. Increase fiber diet. Continue supportive measures. Outpatient colonoscopy recommended. Thank you for this kind referral and the opportunity to participate in the care of your patient. This consultation was discussed with Dr. Blackman. The impression and plan of care have been directed as dictated.
[2018-02-10] MEDS: SENNOSIDES-DOCUSATE SODIUM 1 EACH TAB PO SCH ×3 (09:44→20:31)
[2018-02-10 10:24] LABS: Albumin 3.2 g/dL (3.5-5.0); Calcium 9.1 mg/dL (8.4-10.2); Potassium 4.9 mmol/L (3.5-5.1); Total Bilirubin 0.2 mg/dL (0.2-1.3); Total Protein 5.8 g/dL (6.3-8.2)
[2018-02-10 10:28] LABS: Basophils # (A) 0.1 k/uL (0-0.2); Basophils % (A) 0 %; Eosinophils # (A) 0.1 k/uL (0-0.7); Eosinophils % (A) 1 %; HCT 32.5 % (34.0-46.0); HGB 9.7 gm/dL (11.4-16.0); Hypochromasia Marked; Lymphocytes # (A) 2.4 k/uL (1.0-4.8); Lymphocytes % (A) 17 %; MCH 26.2 pg (25.0-35.0); MCHC 29.7 g/dL (31.0-37.0); MCV 88.1 fL (80.0-100.0); Mean Platelet Volume 7.8; Monocytes # (A) 0.9 k/uL (0-1.0); Monocytes % (A) 7 %; Neutrophils # (A) 10.1 k/uL (1.3-7.7); Neutrophils % (A) 74 %; Platelet Count 307 k/uL (150-450); Poikilocytosis Slight; RBC 3.69 m/uL (3.80-5.40); RDW 15.3 % (11.5-15.5); WBC 13.8 k/uL (3.8-10.6)
--- NOTE | 2018-02-10 10:54 | P.PN ---
Subjective Progress Note Date: 02/10/18 This is a 72-year-old female, patient of Dr. Chery. She has a known past medical history of COPD, congestive heart failure, chronic atrial fibrillation, diabetes mellitus type 2, lung cancer with prior left lobectomy and hyperlipidemia. Patient was just recently discharged from [facility] on 02/03/2018 and at that time she was treated for congestive heart failure exacerbation, COPD and pneumonia. Patient reports having a bowel movement the day after discharge. However, she continued to be very weak was having some confusion. The at bedside reports that the patient was overall so weak she had difficulty getting from the bathroom to the bed. There is no actual falling or injury. But she did need assistance. Both her legs and arms were very weak. Patient felt that she was feverish at home. Also is having evidence of hypoglycemia poor oral intake and decrease in appetite. On admission she had a white count of 15.2 and evidence of a UTI and was started on Rocephin. Blood sugar on admission was 30 she was given dextrose. Acute abdominal series shows chronic changes and cardiomegaly without new suspicious acute pulmonary process. Overall nonspecific but likely nonobstructive bowel gas pattern. Fairly moderate diffuse colonic fecal stasis be demonstrated. Patient given stool softeners MiraLAX and suppository in the ER. No results yet. Patient denies any chest pain or shortness of breath denies cough. Denies any nausea or vomiting. Denies any burning with urination. Denies any weakness on one side of the body. Patient's mentation has returned to baseline. On 02/09/2018 patient is alert and oriented 3 she is complaining of abdominal discomfort, abdominal distention, and constipation for the last 5 days she is also complaining of epigastric burning sensation otherwise she denies any complaints there is no chest pain or shortness of breath no fever or chills no cough no dizziness no nausea or vomiting and no urinary symptoms 02/10/2018 patient had a large bowel movement yesterday. Her abdominal discomforts is improving. The epigastric burning sensation has resolved. Patient denies any chest pain or shortness of breath. Denies any nausea or vomiting. Denies any burning with urination. Urine culture is growing VRE white count has jumped up from 12.4-13.8. Infectious diseases been consulted and daptomycin has been added. Lipitor discontinued due to its interaction with daptomycin. Patient also having some dry nose and blood crusting in the nares. Humidity will be added to the oxygen. Objective - Vital Signs Vital signs: Vital Signs Temp 98.1 F 02/10/18 05:40 Pulse 94 02/10/18 08:21 Resp 16 02/10/18 05:40 BP 140/69 02/10/18 05:40 Pulse Ox 95 02/10/18 05:40 Intake & Output 02/09/18 02/10/18 02/10/18 18:59 06:59 18:59 Other: Voiding Method Toilet Toilet # Voids 1 1 - Exam Head normocephalic Neck supple Lungs clear to auscultation bilaterally no wheezing or crackles Heart regular rate and rhythm S1-S2, no rub or gallop Abdomen is soft nontender nondistended positive bowel sounds no hepatosplenomegaly Extremities no edema Neuro alert and orientated to 3 - Labs CBC & Chem 7: 02/10/18 08:30 02/10/18 08:30 Labs: Abnormal Lab Results - Last 24 Hours (Table) 02/09/18 02/09/18 02/09/18 Range/Units 11:03 16:56 20:35 WBC (3.8-10.6) k/uL RBC (3.80-5.40) m/uL Hgb (11.4-16.0) gm/dL Hct (34.0-46.0) % MCHC (31.0-37.0) g/dL Neutrophils # (1.3-7.7) k/uL Chloride (98-107) mmol/L BUN (7-17) mg/dL Glucose (74-99) mg/dL POC Glucose (mg/dL) 137 H 240 H 320 H (75-99) mg/dL Total Protein (6.3-8.2) g/dL Albumin (3.5-5.0) g/dL 02/09/18 02/10/18 02/10/18 Range/Units 22:40 02:50 07:11 WBC (3.8-10.6) k/uL RBC (3.80-5.40) m/uL Hgb (11.4-16.0) gm/dL Hct (34.0-46.0) % MCHC (31.0-37.0) g/dL Neutrophils # (1.3-7.7) k/uL Chloride (98-107) mmol/L BUN (7-17) mg/dL Glucose (74-99) mg/dL POC Glucose (mg/dL) 326 H 220 H 158 H (75-99) mg/dL Total Protein (6.3-8.2) g/dL Albumin (3.5-5.0) g/dL 02/10/18 02/10/18 Range/Units 08:30 08:30 WBC 13.8 H (3.8-10.6) k/uL RBC 3.69 L (3.80-5.40) m/uL Hgb 9.7 L (11.4-16.0) gm/dL Hct 32.5 L (34.0-46.0) % MCHC 29.7 L (31.0-37.0) g/dL Neutrophils # 10.1 H (1.3-7.7) k/uL Chloride 97 L (98-107) mmol/L BUN 20 H (7-17) mg/dL Glucose 150 H (74-99) mg/dL POC Glucose (mg/dL) (75-99) mg/dL Total Protein 5.8 L (6.3-8.2) g/dL Albumin 3.2 L (3.5-5.0) g/dL Microbiology - Last 24 Hours (Table) 02/07/18 16:18 Urine Culture - Final Urine,Voided Enterococcus faecium VRE Assessment and Plan Assessment: 1. Generalized weakness likely multifactorial due to deconditioning from recent hospitalization as well as UTI and hypoglycemia. Awaiting further physical therapy recommendations about home with home care versus ECF 2. Acute metabolic encephalopathy resolved likely secondary to UTI and hyperglycemia 3. UTI: Urine culture growing VRE. Discontinue Rocephin. Start daptomycin. Infectious disease consulted. 4. Accelerated hypertension present on admission: Has improved 5. Constipation with fecal stasis noted on x-ray. Patient did have a bowel movement yesterday. After lactulose and milk of magnesia regimen. Patient seen by GI service and they're recommending Senokot 2 tablets twice a day and MiraLAX 17 g daily. Outpatient colonoscopy 6. Hypoglycemia with a known history of diabetes mellitus type 2. Hypoglycemia has resolved. Patient's appetite showing improvement. Blood sugar 150 this morning. We'll restart patient's Amaryl and metformin. Continue sliding scale coverage. By tomorrow anticipate restarting patient's home insulin 7. History of chronic persistent atrial fibrillation: EKG showing A. fib heart rate controlled. Continue Eliquis for anticoagulation and metoprolol 8. History of COPD stable resume nebulizer treatments 9. Chronic diastolic congestive heart failure. No evidence of exacerbation at this time. Continue Lasix 10. History of lung cancer with prior left lobectomy 11. Recent hospitalization with bronchitis with possible pneumonia and COPD and congestive heart failure exacerbation. 12. History of iron deficiency anemia: Continue iron supplement GI prophylaxis Protonix and DVT prophylaxis Eliquis I performed an examination of the patient and discussed their management with the physician Burn Crew Member. I have reviewed the Physician Burn Crew Member's notes and agree with the documented findings and plan of care
[2018-02-10] MEDS: ONDANSETRON 4 MG/2 ML VIAL IVP PRN ×2 (11:47→20:37)
[2018-02-10 12:25] LABS: Glucose,Whole Blood 229 mg/dL (75-99)
[2018-02-10] MEDS: metFORMIN 500 MG TAB PO SCH ×2 (13:01→20:29)
[2018-02-10] MEDS: GLIMEPIRIDE 4 MG TAB PO SCH ×2 (13:01→18:14)
[2018-02-10] MEDS: CYANOCOBALAMIN 500 MCG TAB PO SCH (13:01)
[2018-02-10] MEDS: CHOLECALCIFEROL 1,000 UNIT TAB PO SCH (13:01)
[2018-02-10 17:22] LABS: Glucose,Whole Blood 158 mg/dL (75-99)
[2018-02-10 20:46] LABS: Glucose,Whole Blood 142 mg/dL (75-99)
[2018-02-10] MEDS ORDERED: INSULIN DETEMIR 100 UNIT/ML 10 ML VIAL SQ SCH (21:00)
--- NOTE | 2018-02-10 23:21 | CONS ---
CONSULTATION DATE OF SERVICE: 02/10/2018 REASON FOR CONSULTATION: VRE urinary tract infection. HISTORY OF PRESENT ILLNESS: The patient is a 72-year-old female who was brought into the ER by the EMS for mental status changes and weakness. Symptoms have been getting worse for the last one week. She was recently admitted to this facility and treated for congestive heart failure. The patient on arrival with EMS was found have a blood sugar for which the patient did receive an amp of dextrose. The patient on arrival to the ER was oriented to herself and denies any headache. No chest pain or cough. No shortness of breath. The patient has been complaining of abdominal discomfort, especially when after she has had breakfast this morning. pain. Feeling nauseated, but no vomiting. Also has been suffering for constipation. The patient denies significant burning or frequency of urine. At this the patient has been evaluated by the ER physician. On arrival to the ER, the patient noticed to have a positive UA with elevated white count with concern for possible urinary tract infection. The patient was started on Rocephin with the urine culture finalized this morning with VRE, hence Infectious Disease was consulted for further recommendation. After discussion with the nurse practitioner and the organism was penicillin resistant, she was started on daptomycin and Rocephin was discontinued. GI has already been consulted for her abdominal pain and nausea. REVIEW OF SYSTEMS: CONSTITUTIONAL: Positive for weakness. No high-grade fever. EYES: No complaint. ENT: No complaint. RESPIRATORY: Shortness of breath. No cough. CARDIOVASCULAR: No complaint. GENITOURINARY: As per HPI. GASTROINTESTINAL: As per HPI. MUSCULOSKELETAL: No complaint. INTEGUMENTARY: No complaint. PSYCHOLOGICAL: No complaint. ENDOCRINE: No complaint. NEUROLOGIC: As per HPI. PAST MEDICAL HISTORY: Atrial fibrillation, heart failure, COPD, diabetes mellitus, hyperlipidemia, hypertension, memory impairment. PAST SURGICAL HISTORY: PTCA with stent, tubal ligation, left lower lobe lung removed, right shoulder rotator cuff repair. SOCIAL HISTORY: Remote history of smoking, no drinking or drug use. FAMILY HISTORY: Father history of diabetes mellitus. ALLERGIES: CODEINE. MEDICATIONS: The patient is currently on Tylenol, DuoNeb, Eliquis, Symbicort, calcium, vitamin D3, vitamin B12, daptomycin at 400 mg daily, Cardizem, Vasotec, Neurontin and Amaryl. EXAMINATION: Blood pressure is 127/57 with a pulse of 72, temperature 97. She is 91% on room air. General description is an elderly female, lying in bed in no distress. No tachypnea or accessory muscle of respiration use. HEENT examination is slight pallor. No scleral icterus. Oral mucosa is dry. No pharyngeal erythema or thrush. NECK: Trachea central. No thyromegaly. LUNGS: Unlabored breathing, clear to auscultation anteriorly. No wheeze or crackle. HEART: S1, S2. Regular rate and rhythm. ABDOMEN: Soft, no tenderness, no guarding or rigidity. EXTREMITIES: No edema of the feet. SKIN EXAMINATION: No rash or mass palpable. NEUROLOGICAL: The patient is awake, alert, oriented x3. Mood and affect normal. LABS: Hemoglobin 9.7, hemoglobin 13.8. BUN of 20, creatinine 0.96. Electrolytes has been normal. Liver enzymes are normal. Urine has been positive with large leukocyte esterase, 120 WBC. Cultures with VRE with low colony count. DIAGNOSTIC IMPRESSION AND PLAN: Patient with admission to the hospital with mental status changes. The patient did have some abdominal symptom, likely multifactorial. She did have a positive UA, possible cystitis is not entirely excluded as the patient did not have any fever, but still have some elevated white count. PLAN: 1. Repeat urine culture clean-catch, start catheter if needed. 2. We will keep the patient on daptomycin at 4 mg/kg while waiting for the repeat urine culture findings. 3. We will follow up on the clinical condition and culture to further adjust medication if needed. Thank you for this consultation. Will follow this patient along with you. MMODL / IJN: [id number] /
[2018-02-11 02:08] LABS: Glucose,Whole Blood 117 mg/dL (75-99)
[2018-02-11 07:01] LABS: Glucose,Whole Blood 79 mg/dL (75-99)
[2018-02-11] MEDS: IPRATROPIUM-ALBUTEROL 3 ML NEB INHALATION SCH ×4 (07:06→20:32)
[2018-02-11] MEDS: SYMBICORT 80-4.5 MCG INHALER INHALATION SCH ×2 (07:06→20:32)
[2018-02-11 08:53] LABS: Basophils # (A) 0.1 k/uL (0-0.2); Basophils % (A) 0 %; Eosinophils # (A) 0.2 k/uL (0-0.7); Eosinophils % (A) 1 %; HCT 30.7 % (34.0-46.0); HGB 9.3 gm/dL (11.4-16.0); Hypochromasia Marked; Lymphocytes # (A) 4.1 k/uL (1.0-4.8); Lymphocytes % (A) 23 %; MCH 26.4 pg (25.0-35.0); MCHC 30.4 g/dL (31.0-37.0); MCV 86.7 fL (80.0-100.0); Mean Platelet Volume 7.5; Monocytes # (A) 0.9 k/uL (0-1.0); Monocytes % (A) 5 %; Neutrophils # (A) 12.1 k/uL (1.3-7.7); Neutrophils % (A) 69 %; Platelet Count 320 k/uL (150-450); Poikilocytosis Slight; RBC 3.54 m/uL (3.80-5.40); RDW 15.6 % (11.5-15.5); WBC 17.6 k/uL (3.8-10.6)
[2018-02-11 09:01] LABS: Albumin 3.1 g/dL (3.5-5.0); Calcium 8.8 mg/dL (8.4-10.2); Potassium 4.6 mmol/L (3.5-5.1); Total Bilirubin 0.4 mg/dL (0.2-1.3); Total Protein 5.6 g/dL (6.3-8.2)
[2018-02-11] MEDS: SENNOSIDES-DOCUSATE SODIUM 1 EACH TAB PO SCH ×2 (09:02→22:09)
[2018-02-11] MEDS: APIXABAN 5 MG TAB PO SCH ×2 (09:02→21:57)
[2018-02-11] MEDS: FERROUS SULFATE 325 MG TAB PO SCH ×2 (09:02→17:31)
[2018-02-11] MEDS: GABAPENTIN 400 MG CAP PO SCH ×3 (09:02→22:08)
[2018-02-11] MEDS: LORATADINE 10 MG TAB PO SCH (09:02)
[2018-02-11] MEDS: CYANOCOBALAMIN 500 MCG TAB PO SCH (09:02)
[2018-02-11] MEDS: DILTIAZEM ORAL 60 MG TAB PO SCH ×3 (09:03→22:08)
[2018-02-11] MEDS: SPIRONOLACTONE 25 MG TAB PO SCH (09:03)
[2018-02-11] MEDS: PANTOPRAZOLE 40 MG TABLET PO SCH ×2 (09:03→17:32)
[2018-02-11] MEDS: CHOLECALCIFEROL 1,000 UNIT TAB PO SCH (09:03)
[2018-02-11] MEDS: LOSARTAN 50 MG TAB PO SCH (09:03)
[2018-02-11] MEDS: FUROSEMIDE 40 MG TAB PO SCH (09:03)
[2018-02-11] MEDS: METOPROLOL SUCCINATE (ER) 100 MG TAB.ER.24H PO SCH (09:03)
[2018-02-11] MEDS: POLYETHYLENE GLYCOL 3350 17 GM POWD.PACK PO SCH (09:03)
[2018-02-11] MEDS: metFORMIN 500 MG TAB PO SCH (09:03)
[2018-02-11] MEDS: INSULIN ASPART 100 UNIT/ML 1 ML 10 ML VIAL SQ SCH ×4 (09:04→20:52)
[2018-02-11] MEDS: GLYCERIN ADULT SUPPOSITORY 1 EACH RECTAL SCH (09:04)
[2018-02-11] MEDS: LACTULOSE 20 GM/30 ML CUP PO SCH (09:04)
[2018-02-11] MEDS: GLIMEPIRIDE 4 MG TAB PO SCH ×2 (09:04→17:31)
--- NOTE | 2018-02-11 09:35 | P.PN ---
Subjective Progress Note Date: 02/11/18 Principal diagnosis: Constipation Denies abdominal pain. Denies constipation. Passing flatus. Tolerating regular diet. Objective - Vital Signs Vital signs: Vital Signs Temp 98.9 F 02/11/18 06:50 Pulse 97 02/11/18 07:16 Resp 16 02/11/18 07:06 BP 150/67 02/11/18 06:50 Pulse Ox 97 02/11/18 07:06 Intake & Output 02/10/18 02/11/18 02/11/18 18:59 06:59 18:59 Intake Total 50 Balance 50 Intake: Intake, IV Titration 50 Amount DAPTOmycin 400 mg In 50 Sodium Chloride 0.9% 50 ml @ 100 mls/hr IVPB Q24H [facility] Rx#:[id number] Other: Voiding Method Toilet # Voids 1 - Exam General appearance: The patient is alert, oriented, in no acute distress. HET: Head is normocephalic and atraumatic. Pupils are equal and reactive. Oropharynx is clear without lesions. Neck: Supple without lymphadenopathy. Trachea midline. Heart: S1 S2. Regular rate and rhythm. Lungs: No crackles or wheezes are heard. Slight diminishment in bases bilaterally. Abdomen: Soft, nontender, nondistended with bowel sounds. No peritoneal signs. No palpable organomegaly or masses. Extremities: Normal skin color and turgor. No cyanosis, rash, ulceration, clubbing, or edema. Radial and pedal pulses are 2/4 bilaterally. Neurological: No focal deficits. Strength and sensation are grossly intact. - Labs CBC & Chem 7: 02/11/18 08:05 02/11/18 08:05 Labs: Abnormal Lab Results - Last 24 Hours (Table) 02/10/18 02/10/18 02/10/18 Range/Units 08:30 08:30 12:20 WBC 13.8 H (3.8-10.6) k/uL RBC 3.69 L (3.80-5.40) m/uL Hgb 9.7 L (11.4-16.0) gm/dL Hct 32.5 L (34.0-46.0) % MCHC 29.7 L (31.0-37.0) g/dL RDW (11.5-15.5) % Neutrophils # 10.1 H (1.3-7.7) k/uL Sodium (137-145) mmol/L Chloride 97 L (98-107) mmol/L Carbon Dioxide (22-30) mmol/L BUN 20 H (7-17) mg/dL Creatinine (0.52-1.04) mg/dL Glucose 150 H (74-99) mg/dL POC Glucose (mg/dL) 229 H (75-99) mg/dL Total Protein 5.8 L (6.3-8.2) g/dL Albumin 3.2 L (3.5-5.0) g/dL 02/10/18 02/10/18 02/11/18 Range/Units 17:10 20:45 02:05 WBC (3.8-10.6) k/uL RBC (3.80-5.40) m/uL Hgb (11.4-16.0) gm/dL Hct (34.0-46.0) % MCHC (31.0-37.0) g/dL RDW (11.5-15.5) % Neutrophils # (1.3-7.7) k/uL Sodium (137-145) mmol/L Chloride (98-107) mmol/L Carbon Dioxide (22-30) mmol/L BUN (7-17) mg/dL Creatinine (0.52-1.04) mg/dL Glucose (74-99) mg/dL POC Glucose (mg/dL) 158 H 142 H 117 H (75-99) mg/dL Total Protein (6.3-8.2) g/dL Albumin (3.5-5.0) g/dL 02/11/18 02/11/18 Range/Units 08:05 08:05 WBC 17.6 H (3.8-10.6) k/uL RBC 3.54 L (3.80-5.40) m/uL Hgb 9.3 L (11.4-16.0) gm/dL Hct 30.7 L (34.0-46.0) % MCHC 30.4 L (31.0-37.0) g/dL RDW 15.6 H (11.5-15.5) % Neutrophils # 12.1 H (1.3-7.7) k/uL Sodium 136 L (137-145) mmol/L Chloride 91 L (98-107) mmol/L Carbon Dioxide 31 H (22-30) mmol/L BUN 20 H (7-17) mg/dL Creatinine 1.05 H (0.52-1.04) mg/dL Glucose (74-99) mg/dL POC Glucose (mg/dL) (75-99) mg/dL Total Protein 5.6 L (6.3-8.2) g/dL Albumin 3.1 L (3.5-5.0) g/dL Microbiology - Last 24 Hours (Table) 02/07/18 16:18 Urine Culture - Final Urine,Voided Enterococcus faecium VRE Assessment and Plan (1) Constipation Narrative/Plan: 72-year-old female admitted with shakiness and constipation provided laxatives now passing bowel movement without abdominal pain. She has an underlying history of severe COPD O2 dependent with prior history of lung carcinoma, atrial fibrillation maintained on anticoagulation with recent hospitalization and discharge secondary to shortness of breath A. fib with RVR, radiographic imaging reported right lower lobe subpleural mass possible malignancy. Current Visit: Yes Status: Acute Code(s): K59.00 - CONSTIPATION, UNSPECIFIED SNOMED Code(s): 41171622 Plan: 1. Continue daily stool softeners. Inpatient endoscopic exams not planned at this time. 2. Will follow as needed. Follow up in GI office for reevaluation and discussion of outpatient colonoscopy. Assessment and plan of care discussed with Dr. Collins
[2018-02-11 11:30] LABS: Glucose,Whole Blood 121 mg/dL (75-99)
--- NOTE | 2018-02-11 11:38 | P.PN ---
Subjective Progress Note Date: 02/11/18 This is a 72-year-old female, patient of Dr. Chery. She has a known past medical history of COPD, congestive heart failure, chronic atrial fibrillation, diabetes mellitus type 2, lung cancer with prior left lobectomy and hyperlipidemia. Patient was just recently discharged from [facility] on 02/03/2018 and at that time she was treated for congestive heart failure exacerbation, COPD and pneumonia. Patient reports having a bowel movement the day after discharge. However, she continued to be very weak was having some confusion. The at bedside reports that the patient was overall so weak she had difficulty getting from the bathroom to the bed. There is no actual falling or injury. But she did need assistance. Both her legs and arms were very weak. Patient felt that she was feverish at home. Also is having evidence of hypoglycemia poor oral intake and decrease in appetite. On admission she had a white count of 15.2 and evidence of a UTI and was started on Rocephin. Blood sugar on admission was 30 she was given dextrose. Acute abdominal series shows chronic changes and cardiomegaly without new suspicious acute pulmonary process. Overall nonspecific but likely nonobstructive bowel gas pattern. Fairly moderate diffuse colonic fecal stasis be demonstrated. Patient given stool softeners MiraLAX and suppository in the ER. No results yet. Patient denies any chest pain or shortness of breath denies cough. Denies any nausea or vomiting. Denies any burning with urination. Denies any weakness on one side of the body. Patient's mentation has returned to baseline. On 02/09/2018 patient is alert and oriented 3 she is complaining of abdominal discomfort, abdominal distention, and constipation for the last 5 days she is also complaining of epigastric burning sensation otherwise she denies any complaints there is no chest pain or shortness of breath no fever or chills no cough no dizziness no nausea or vomiting and no urinary symptoms 02/10/2018 patient had a large bowel movement yesterday. Her abdominal discomforts is improving. The epigastric burning sensation has resolved. Patient denies any chest pain or shortness of breath. Denies any nausea or vomiting. Denies any burning with urination. Urine culture is growing VRE white count has jumped up from 12.4-13.8. Infectious diseases been consulted and daptomycin has been added. Lipitor discontinued due to its interaction with daptomycin. Patient also having some dry nose and blood crusting in the nares. Humidity will be added to the oxygen. 02/11/2018 patient is still feeling generalized weakness and easily tired. Patient reports taking a shower and feeling tired afterwards. She had a low- grade temp of 100 last night. Also some lower blood sugar of 79 this morning. Her Levemir will be decreased to 18 units at bedtime metformin also discontinued patient has had a slight rise in creatinine is up to 1.05. White count also increased to 17.6. Patient's last bowel movement was 2 days ago. She has been refusing the lactulose. Abdominal pain is resolved. The denies any nausea or vomiting. She is passing gas. Denies any chest pain or shortness of breath did denies any urinary symptoms. Objective - Vital Signs Vital signs: Vital Signs Temp 98.9 F 02/11/18 06:50 Pulse 90 02/11/18 11:18 Resp 16 02/11/18 11:08 BP 150/67 02/11/18 06:50 Pulse Ox 97 02/11/18 07:06 Intake & Output 02/10/18 02/11/18 02/11/18 18:59 06:59 18:59 Intake Total 50 Balance 50 Intake: Intake, IV Titration 50 Amount DAPTOmycin 400 mg In 50 Sodium Chloride 0.9% 50 ml @ 100 mls/hr IVPB Q24H [facility] Rx#:[id number] Other: Voiding Method Toilet # Voids 1 - Exam Head normocephalic Neck supple Lungs clear to auscultation bilaterally no wheezing or crackles Heart regular rate and rhythm S1-S2, no rub or gallop Abdomen is soft nontender nondistended positive bowel sounds no hepatosplenomegaly Extremities no edema Neuro alert and orientated to 3 - Labs CBC & Chem 7: 02/11/18 08:05 02/11/18 08:05 Labs: Abnormal Lab Results - Last 24 Hours (Table) 02/10/18 02/10/18 02/10/18 Range/Units 12:20 17:10 20:45 WBC (3.8-10.6) k/uL RBC (3.80-5.40) m/uL Hgb (11.4-16.0) gm/dL Hct (34.0-46.0) % MCHC (31.0-37.0) g/dL RDW (11.5-15.5) % Neutrophils # (1.3-7.7) k/uL Sodium (137-145) mmol/L Chloride (98-107) mmol/L Carbon Dioxide (22-30) mmol/L BUN (7-17) mg/dL Creatinine (0.52-1.04) mg/dL POC Glucose (mg/dL) 229 H 158 H 142 H (75-99) mg/dL Total Protein (6.3-8.2) g/dL Albumin (3.5-5.0) g/dL 02/11/18 02/11/18 02/11/18 Range/Units 02:05 08:05 08:05 WBC 17.6 H (3.8-10.6) k/uL RBC 3.54 L (3.80-5.40) m/uL Hgb 9.3 L (11.4-16.0) gm/dL Hct 30.7 L (34.0-46.0) % MCHC 30.4 L (31.0-37.0) g/dL RDW 15.6 H (11.5-15.5) % Neutrophils # 12.1 H (1.3-7.7) k/uL Sodium 136 L (137-145) mmol/L Chloride 91 L (98-107) mmol/L Carbon Dioxide 31 H (22-30) mmol/L BUN 20 H (7-17) mg/dL Creatinine 1.05 H (0.52-1.04) mg/dL POC Glucose (mg/dL) 117 H (75-99) mg/dL Total Protein 5.6 L (6.3-8.2) g/dL Albumin 3.1 L (3.5-5.0) g/dL 02/11/18 Range/Units 11:28 WBC (3.8-10.6) k/uL RBC (3.80-5.40) m/uL Hgb (11.4-16.0) gm/dL Hct (34.0-46.0) % MCHC (31.0-37.0) g/dL RDW (11.5-15.5) % Neutrophils # (1.3-7.7) k/uL Sodium (137-145) mmol/L Chloride (98-107) mmol/L Carbon Dioxide (22-30) mmol/L BUN (7-17) mg/dL Creatinine (0.52-1.04) mg/dL POC Glucose (mg/dL) 121 H (75-99) mg/dL Total Protein (6.3-8.2) g/dL Albumin (3.5-5.0) g/dL Assessment and Plan Assessment: 1. Generalized weakness likely multifactorial due to deconditioning from recent hospitalization as well as UTI and hypoglycemia. Awaiting further physical therapy recommendations about home with home care versus ECF 2. Acute metabolic encephalopathy resolved likely secondary to UTI and hyperglycemia 3. UTI: Urine culture growing VRE. Continue daptomycin . Infectious disease is following. Await repeat urine culture 4. Accelerated hypertension present on admission: Has improved 5. Constipation with fecal stasis noted on x-ray. Patient did have a bowel movement 2 days ago. Patient seen by GI service and they're recommending Senokot 2 tablets twice a day and MiraLAX 17 g daily. Outpatient colonoscopy. Patient refusing lactulose 6. Hypoglycemia with a known history of diabetes mellitus type 2. Hypoglycemia has resolved. Patient's appetite showing improvement. Patient's blood sugar 79 this morning. At this time we'll decrease Levemir to 18 units at bedtime. Metformin also discontinued due to slight rise in the creatinine 7. History of chronic persistent atrial fibrillation: EKG showing A. fib heart rate controlled. Continue Eliquis for anticoagulation and metoprolol 8. History of COPD stable resume nebulizer treatments 9. Chronic diastolic congestive heart failure. No evidence of exacerbation at this time. Continue Lasix 10. History of lung cancer with prior left lobectomy 11. Recent hospitalization with bronchitis with possible pneumonia and COPD and congestive heart failure exacerbation. 12. History of iron deficiency anemia: Continue iron supplement 13. Mild renal insufficiency: Creatinine 1.05 and BUN 20. Decrease Lasix to 40 mg daily. Add normal saline at 50 mL an hour. Repeat labs in a.m. GI prophylaxis Protonix and DVT prophylaxis Eliquis I performed an examination of the patient and discussed their management with the physician [employer]. I have reviewed the Physician [employer]'s notes and agree with the documented findings and plan of care
[2018-02-11] MEDS: SODIUM CHLORIDE 0.9% 1,000 ML IV SCH (12:22)
[2018-02-11] MEDS: ONDANSETRON 4 MG/2 ML VIAL IVP PRN (12:25)
[2018-02-11] MEDS: CALCIUM CARBONATE 500 MG CHEWABLE PO PRN (14:42)
[2018-02-11] MEDS: MAGNESIUM HYDROXIDE 2,400 MG/10 ML CUP PO SCH (14:45)
--- NOTE | 2018-02-11 15:06 | XR ---
EXAMINATION TYPE: XR chest 2V DATE OF EXAM: 02/11/2018 COMPARISON: 01/30/2018 TECHNIQUE: PA and lateral views submitted. HISTORY: Fever FINDINGS: There is left lower lobe pneumonia and small effusion. Heart enlarged. No pneumothorax. Atherosclerot ic change aorta. Heart size stable. Linear changes involving the right lung most typical scar or atel ectasis. Surgical clips are noted. Diffuse osteopenia noted. IMPRESSION: 1. Left lower lobe infiltrate and small pleural effusion.
--- NOTE | 2018-02-11 17:14 | PN ---
PROGRESS NOTE DATE OF SERVICE: 02/11/2018. REASON FOR FOLLOW UP: VRE urinary tract infection. INTERVAL HISTORY: The patient is afebrile. She is feeling slightly better. Her abdominal pain has improved. She has been feeling nauseated but no further vomiting. No diarrhea. No urinary symptoms. EXAMINATION: Blood pressure 140/51 with a pulse of 60, temperature 97.8. She is 94% on room air. General description is an elderly female up in the bed in no distress. Respiratory system: Unlabored breathing. Clear to auscultation anteriorly. Heart S1, S2. Regular rate and rhythm. Abdomen soft. No tenderness. Extremities: No edema of the feet. LABS: Hemoglobin 9.2, white count 13.6 with a BUN of 20, creatinine 1.05. Repeat urine is currently pending. DIAGNOSTIC IMPRESSION AND PLAN: Patient with VRE urinary tract infection. Repeat UA has been ordered, specimen not collected. RN has been advised to obtain a clean-catch sample with further adjustment of antibiotic on the basis of that urinalysis. Continue daptomycin at this point. Continue supportive care. MMODL / IJN: [id number] /
[2018-02-11 17:30] LABS: Creatine Kinase 33 U/L (30-135)
[2018-02-11 17:32] LABS: Glucose,Whole Blood 177 mg/dL (75-99)
[2018-02-11] MEDS: ACETAMINOPHEN TAB 500 MG TAB PO PRN (17:32)
[2018-02-11] MEDS ORDERED: MORPHINE SULFATE 4 MG/ML SYRINGE IVP PRN (17:35)
[2018-02-11 17:42] LABS: Creatine Kinase MB 0.6 ng/mL (0.0-2.4); Troponin I <0.012 ng/mL (0.000-0.034)
[2018-02-11 20:30] LABS: Glucose,Whole Blood 137 mg/dL (75-99)
[2018-02-11] MEDS: INSULIN DETEMIR 100 UNIT/ML 10 ML VIAL SQ SCH (21:58)
[2018-02-11 22:22] LABS: Appearance,Urine Turbid (Clear); Bacteria,Urine Few /hpf; Bilirubin,Urine Negative (Negative); Blood,Urine Moderate (Negative); Budding Yeast,Urine Many /hpf; Cellular Casts,Urine 132 /lpf (0); Color,Urine Yellow; Glucose,Urine (UA) Negative (Negative); Ketones,Urine Negative (Negative); Leukocyte Esterase,Urine Large (Negative); Mucus,Urine Many /hpf; Nitrite,Urine Negative (Negative); Protein,Urine 2+ (Negative); RBC,Urine 41 /hpf (0-5); Specific Gravity,Urine 1.018 (1.001-1.035); Squamous Epithelial Cell,Urine 15 /hpf (0-4); Urobilinogen,Urine <2.0 mg/dL (<2.0); WBC,Urine >182 /hpf (0-5)
[2018-02-12 01:46] LABS: Glucose,Whole Blood 114 mg/dL (75-99)
[2018-02-12] MEDS: SYMBICORT 80-4.5 MCG INHALER INHALATION SCH ×2 (07:11→19:42)
[2018-02-12] MEDS: IPRATROPIUM-ALBUTEROL 3 ML NEB INHALATION SCH ×4 (07:11→19:42)
[2018-02-12 07:23] LABS: Glucose,Whole Blood 94 mg/dL (75-99)
[2018-02-12 08:11] LABS: Albumin 2.8 g/dL (3.5-5.0); Basophils % (A) 0 %; Calcium 8.7 mg/dL (8.4-10.2); Eosinophils # (A) 0.1 k/uL (0-0.7); Eosinophils % (A) 1 %; HCT 28.6 % (34.0-46.0); HGB 8.8 gm/dL (11.4-16.0); Hypochromasia Moderate; Lymphocytes # (A) 2.5 k/uL (1.0-4.8); Lymphocytes % (A) 17 %; MCH 26.6 pg (25.0-35.0); MCHC 30.6 g/dL (31.0-37.0); MCV 86.8 fL (80.0-100.0); Mean Platelet Volume 7.5; Monocytes # (A) 0.7 k/uL (0-1.0); Monocytes % (A) 5 %; Neutrophils # (A) 11.6 k/uL (1.3-7.7); Neutrophils % (A) 77 %; Platelet Count 286 k/uL (150-450); Potassium 4.6 mmol/L (3.5-5.1); RBC 3.29 m/uL (3.80-5.40); RDW 15.8 % (11.5-15.5); Total Bilirubin 0.2 mg/dL (0.2-1.3); Total Protein 5.2 g/dL (6.3-8.2); WBC 15.2 k/uL (3.8-10.6)
[2018-02-12] MEDS: POLYETHYLENE GLYCOL 3350 17 GM POWD.PACK PO SCH (08:21)
[2018-02-12] MEDS: SENNOSIDES-DOCUSATE SODIUM 1 EACH TAB PO SCH ×2 (08:21→21:10)
[2018-02-12] MEDS: INSULIN ASPART 100 UNIT/ML 1 ML 10 ML VIAL SQ SCH ×4 (08:21→21:11)
[2018-02-12] MEDS: SPIRONOLACTONE 25 MG TAB PO SCH (08:21)
[2018-02-12] MEDS: PANTOPRAZOLE 40 MG TABLET PO SCH ×2 (08:21→17:35)
[2018-02-12] MEDS: DILTIAZEM ORAL 60 MG TAB PO SCH ×3 (08:22→21:10)
[2018-02-12] MEDS: FUROSEMIDE 40 MG TAB PO SCH (08:22)
[2018-02-12] MEDS: GLIMEPIRIDE 4 MG TAB PO SCH ×2 (08:22→17:35)
[2018-02-12] MEDS: APIXABAN 5 MG TAB PO SCH ×2 (08:22→21:09)
[2018-02-12] MEDS: GABAPENTIN 400 MG CAP PO SCH ×3 (08:22→21:10)
[2018-02-12] MEDS: FERROUS SULFATE 325 MG TAB PO SCH ×2 (08:23→17:35)
[2018-02-12] MEDS: METOPROLOL SUCCINATE (ER) 100 MG TAB.ER.24H PO SCH (08:23)
[2018-02-12] MEDS: LOSARTAN 50 MG TAB PO SCH (08:23)
[2018-02-12] MEDS: LORATADINE 10 MG TAB PO SCH (08:25)
[2018-02-12] MEDS: GLYCERIN ADULT SUPPOSITORY 1 EACH RECTAL SCH ×2 (08:26→15:22)
[2018-02-12] MEDS: MAGNESIUM HYDROXIDE 2,400 MG/10 ML CUP PO SCH (08:36)
[2018-02-12 11:58] LABS: Glucose,Whole Blood 171 mg/dL (75-99)
[2018-02-12] MEDS: CYANOCOBALAMIN 500 MCG TAB PO SCH (12:58)
[2018-02-12] MEDS: CHOLECALCIFEROL 1,000 UNIT TAB PO SCH (12:59)
[2018-02-12] MEDS: SODIUM CHLORIDE 0.9% 1,000 ML IV SCH (14:35)
[2018-02-12] MEDS: CALCIUM CARBONATE 500 MG CHEWABLE PO PRN ×2 (14:35→17:35)
--- NOTE | 2018-02-12 14:44 | P.PN ---
Subjective Progress Note Date: 02/12/18 This is a 72-year-old female, patient of Dr. Chery. She has a known past medical history of COPD, congestive heart failure, chronic atrial fibrillation, diabetes mellitus type 2, lung cancer with prior left lobectomy and hyperlipidemia. Patient was just recently discharged from [facility] on 02/03/2018 and at that time she was treated for congestive heart failure exacerbation, COPD and pneumonia. Patient reports having a bowel movement the day after discharge. However, she continued to be very weak was having some confusion. The at bedside reports that the patient was overall so weak she had difficulty getting from the bathroom to the bed. There is no actual falling or injury. But she did need assistance. Both her legs and arms were very weak. Patient felt that she was feverish at home. Also is having evidence of hypoglycemia poor oral intake and decrease in appetite. On admission she had a white count of 15.2 and evidence of a UTI and was started on Rocephin. Blood sugar on admission was 30 she was given dextrose. Acute abdominal series shows chronic changes and cardiomegaly without new suspicious acute pulmonary process. Overall nonspecific but likely nonobstructive bowel gas pattern. Fairly moderate diffuse colonic fecal stasis be demonstrated. Patient given stool softeners MiraLAX and suppository in the ER. No results yet. Patient denies any chest pain or shortness of breath denies cough. Denies any nausea or vomiting. Denies any burning with urination. Denies any weakness on one side of the body. Patient's mentation has returned to baseline. On 02/09/2018 patient is alert and oriented 3 she is complaining of abdominal discomfort, abdominal distention, and constipation for the last 5 days she is also complaining of epigastric burning sensation otherwise she denies any complaints there is no chest pain or shortness of breath no fever or chills no cough no dizziness no nausea or vomiting and no urinary symptoms 02/10/2018 patient had a large bowel movement yesterday. Her abdominal discomforts is improving. The epigastric burning sensation has resolved. Patient denies any chest pain or shortness of breath. Denies any nausea or vomiting. Denies any burning with urination. Urine culture is growing VRE white count has jumped up from 12.4-13.8. Infectious diseases been consulted and daptomycin has been added. Lipitor discontinued due to its interaction with daptomycin. Patient also having some dry nose and blood crusting in the nares. Humidity will be added to the oxygen. 02/11/2018 patient is still feeling generalized weakness and easily tired. Patient reports taking a shower and feeling tired afterwards. She had a low- grade temp of 100 last night. Also some lower blood sugar of 79 this morning. Her Levemir will be decreased to 18 units at bedtime metformin also discontinued patient has had a slight rise in creatinine is up to 1.05. White count also increased to 17.6. Patient's last bowel movement was 2 days ago. She has been refusing the lactulose. Abdominal pain is resolved. The denies any nausea or vomiting. She is passing gas. Denies any chest pain or shortness of breath did denies any urinary symptoms. On 02/12/2018 patient is alert and oriented 3 complaining of abdominal pain, abdominal distention, and constipation her last bowel movement was several days ago she is maintained on milk of magnesia, MiraLAX , Senokot, and glycerin suppositories, will continue with current management if patient unable to have a bowel movement by tomorrow will proceed witn enema, otherwise patient denies any fever or chills no headache or dizziness no chest pain or shortness of breath no cough no nausea or vomiting, and no urinary symptoms Objective - Vital Signs Vital signs: Vital Signs Temp 99.9 F H 02/12/18 14:05 Pulse 67 02/12/18 14:05 Resp 17 02/12/18 14:05 BP 151/55 02/12/18 14:05 Pulse Ox 94 L 02/12/18 14:05 Intake & Output 02/11/18 02/12/18 02/12/18 18:59 06:59 18:59 Intake Total 600 530 Balance 600 530 Intake: Intake, IV Titration 50 Amount DAPTOmycin 400 mg In 50 Sodium Chloride 0.9% 50 ml @ 100 mls/hr IVPB Q24H [facility] Rx#:[id number] Oral 600 480 Other: Voiding Method Toilet Toilet # Voids 1 3 2 # Bowel Movements 0 0 - Exam Head normocephalic and atraumatic Neck supple no JVD no goiter no lymphadenopathy Lungs clear to auscultation bilaterally no wheezing or crackles Heart regular rate and rhythm S1-S2, no rub or gallop Abdomen is soft with mild diffuse tenderness and mild distention positive bowel sounds no hepatosplenomegaly Extremities no edema no cyanosis or clubbing Neuro alert and orientated to 3, no gross focal deficit - Labs CBC & Chem 7: 02/12/18 07:17 02/12/18 07:17 Labs: Abnormal Lab Results - Last 24 Hours (Table) 02/11/18 02/11/18 02/11/18 Range/Units 17:20 20:28 21:33 WBC (3.8-10.6) k/uL RBC (3.80-5.40) m/uL Hgb (11.4-16.0) gm/dL Hct (34.0-46.0) % MCHC (31.0-37.0) g/dL RDW (11.5-15.5) % Neutrophils # (1.3-7.7) k/uL Sodium (137-145) mmol/L Chloride (98-107) mmol/L BUN (7-17) mg/dL Creatinine (0.52-1.04) mg/dL POC Glucose (mg/dL) 177 H 137 H (75-99) mg/dL Total Protein (6.3-8.2) g/dL Albumin (3.5-5.0) g/dL Urine Appearance Turbid H (Clear) Urine Protein 2+ H (Negative) Urine Blood Moderate H (Negative) Ur Leukocyte Esterase Large H (Negative) Urine RBC 41 H (0-5) /hpf Urine WBC >182 H (0-5) /hpf Urine WBC Clumps Many H (None) /hpf Ur Squamous Epith Cells 15 H (0-4) /hpf Urine Bacteria Few H (None) /hpf Urine Mucus Many H (None) /hpf Urine Yeast (Budding) Many H (None) /hpf 02/12/18 02/12/18 02/12/18 Range/Units 01:44 07:17 07:17 WBC 15.2 H (3.8-10.6) k/uL RBC 3.29 L (3.80-5.40) m/uL Hgb 8.8 L (11.4-16.0) gm/dL Hct 28.6 L (34.0-46.0) % MCHC 30.6 L (31.0-37.0) g/dL RDW 15.8 H (11.5-15.5) % Neutrophils # 11.6 H (1.3-7.7) k/uL Sodium 135 L (137-145) mmol/L Chloride 95 L (98-107) mmol/L BUN 24 H (7-17) mg/dL Creatinine 1.31 H (0.52-1.04) mg/dL POC Glucose (mg/dL) 114 H (75-99) mg/dL Total Protein 5.2 L (6.3-8.2) g/dL Albumin 2.8 L (3.5-5.0) g/dL Urine Appearance (Clear) Urine Protein (Negative) Urine Blood (Negative) Ur Leukocyte Esterase (Negative) Urine RBC (0-5) /hpf Urine WBC (0-5) /hpf Urine WBC Clumps (None) /hpf Ur Squamous Epith Cells (0-4) /hpf Urine Bacteria (None) /hpf Urine Mucus (None) /hpf Urine Yeast (Budding) (None) /hpf 02/12/18 Range/Units 11:54 WBC (3.8-10.6) k/uL RBC (3.80-5.40) m/uL Hgb (11.4-16.0) gm/dL Hct (34.0-46.0) % MCHC (31.0-37.0) g/dL RDW (11.5-15.5) % Neutrophils # (1.3-7.7) k/uL Sodium (137-145) mmol/L Chloride (98-107) mmol/L BUN (7-17) mg/dL Creatinine (0.52-1.04) mg/dL POC Glucose (mg/dL) 171 H (75-99) mg/dL Total Protein (6.3-8.2) g/dL Albumin (3.5-5.0) g/dL Urine Appearance (Clear) Urine Protein (Negative) Urine Blood (Negative) Ur Leukocyte Esterase (Negative) Urine RBC (0-5) /hpf Urine WBC (0-5) /hpf Urine WBC Clumps (None) /hpf Ur Squamous Epith Cells (0-4) /hpf Urine Bacteria (None) /hpf Urine Mucus (None) /hpf Urine Yeast (Budding) (None) /hpf Microbiology - Last 24 Hours (Table) 02/11/18 21:33 Urine Culture - Preliminary Urine,Voided Assessment and Plan Plan: 1. Generalized weakness likely multifactorial due to deconditioning from recent hospitalization as well as UTI and hypoglycemia. Awaiting further physical therapy recommendations about home with home care versus ECF 2. Acute metabolic encephalopathy resolved likely secondary to UTI and hyperglycemia 3. UTI: Urine culture growing VRE. Continue daptomycin . Infectious disease is following. Await repeat urine culture 4. Accelerated hypertension present on admission: Has improved 5. Constipation with fecal stasis noted on x-ray. Patient did have a bowel movement 2 days ago. Patient seen by GI service and they're recommending Senokot 2 tablets twice a day and MiraLAX 17 g daily. Outpatient colonoscopy. Patient refusing lactulose 6. Hypoglycemia with a known history of diabetes mellitus type 2. Hypoglycemia has resolved. Patient's appetite showing improvement. Patient's blood sugar 79 this morning. At this time we'll decrease Levemir to 18 units at bedtime. Metformin also discontinued due to slight rise in the creatinine 7. History of chronic persistent atrial fibrillation: EKG showing A. fib heart rate controlled. Continue Eliquis for anticoagulation and metoprolol 8. History of COPD stable resume nebulizer treatments 9. Chronic diastolic congestive heart failure. No evidence of exacerbation at this time. Continue Lasix 10. History of lung cancer with prior left lobectomy 11. Recent hospitalization with bronchitis with possible pneumonia and COPD and congestive heart failure exacerbation. 12. History of iron deficiency anemia: Continue iron supplement 13. Mild renal insufficiency: Creatinine 1.31 and BUN 24. Decrease Lasix to 40 mg daily. Add normal saline at 50 mL an hour. Repeat labs in a.m. GI prophylaxis Protonix and DVT prophylaxis Eliquis
[2018-02-12 16:55] LABS: Glucose,Whole Blood 138 mg/dL (75-99)
[2018-02-12 20:30] LABS: Glucose,Whole Blood 152 mg/dL (75-99)
[2018-02-12] MEDS: INSULIN DETEMIR 100 UNIT/ML 10 ML VIAL SQ SCH (21:11)
[2018-02-13] MEDS: SODIUM CHLORIDE 0.9% 1,000 ML IV SCH ×2 (06:17→09:47)
[2018-02-13] MEDS: IPRATROPIUM-ALBUTEROL 3 ML NEB INHALATION SCH ×4 (07:01→19:31)
[2018-02-13] MEDS: SYMBICORT 80-4.5 MCG INHALER INHALATION SCH ×2 (07:01→19:31)
[2018-02-13 07:18] LABS: Glucose,Whole Blood 107 mg/dL (75-99)
[2018-02-13] MEDS: INSULIN ASPART 100 UNIT/ML 1 ML 10 ML VIAL SQ SCH ×4 (07:51→21:13)
[2018-02-13] MEDS: PANTOPRAZOLE 40 MG TABLET PO SCH ×2 (08:10→18:05)
[2018-02-13] MEDS: FERROUS SULFATE 325 MG TAB PO SCH ×2 (08:10→18:02)
[2018-02-13] MEDS: GLIMEPIRIDE 4 MG TAB PO SCH ×2 (08:10→18:02)
[2018-02-13] MEDS: DILTIAZEM ORAL 60 MG TAB PO SCH ×3 (08:40→21:13)
[2018-02-13] MEDS: APIXABAN 5 MG TAB PO SCH ×2 (08:40→21:13)
[2018-02-13] MEDS: SENNOSIDES-DOCUSATE SODIUM 1 EACH TAB PO SCH ×2 (08:40→21:13)
[2018-02-13] MEDS: MAGNESIUM HYDROXIDE 2,400 MG/10 ML CUP PO SCH (08:40)
[2018-02-13] MEDS: POLYETHYLENE GLYCOL 3350 17 GM POWD.PACK PO SCH (08:40)
[2018-02-13] MEDS: SPIRONOLACTONE 25 MG TAB PO SCH (08:40)
[2018-02-13] MEDS: GABAPENTIN 400 MG CAP PO SCH ×3 (08:40→21:13)
[2018-02-13] MEDS: FUROSEMIDE 40 MG TAB PO SCH (08:42)
[2018-02-13] MEDS: LOSARTAN 50 MG TAB PO SCH (08:42)
[2018-02-13] MEDS: METOPROLOL SUCCINATE (ER) 100 MG TAB.ER.24H PO SCH (08:42)
[2018-02-13] MEDS: LORATADINE 10 MG TAB PO SCH (08:57)
[2018-02-13] MEDS: GLYCERIN ADULT SUPPOSITORY 1 EACH RECTAL SCH (08:58)
[2018-02-13 12:22] LABS: Glucose,Whole Blood 210 mg/dL (75-99)
[2018-02-13] MEDS: CYANOCOBALAMIN 500 MCG TAB PO SCH (13:15)
[2018-02-13] MEDS: CHOLECALCIFEROL 1,000 UNIT TAB PO SCH (13:15)
[2018-02-13] MEDS ORDERED: NA PHOS,M-B/NA PHOS,DI-BA 133 ML ENEMA RECTAL STA (16:52)
--- NOTE | 2018-02-13 16:56 | P.PN ---
Subjective Progress Note Date: 02/13/18 This is a 72-year-old female, patient of Dr. Chery. She has a known past medical history of COPD, congestive heart failure, chronic atrial fibrillation, diabetes mellitus type 2, lung cancer with prior left lobectomy and hyperlipidemia. Patient was just recently discharged from [facility] on 02/03/2018 and at that time she was treated for congestive heart failure exacerbation, COPD and pneumonia. Patient reports having a bowel movement the day after discharge. However, she continued to be very weak was having some confusion. The at bedside reports that the patient was overall so weak she had difficulty getting from the bathroom to the bed. There is no actual falling or injury. But she did need assistance. Both her legs and arms were very weak. Patient felt that she was feverish at home. Also is having evidence of hypoglycemia poor oral intake and decrease in appetite. On admission she had a white count of 15.2 and evidence of a UTI and was started on Rocephin. Blood sugar on admission was 30 she was given dextrose. Acute abdominal series shows chronic changes and cardiomegaly without new suspicious acute pulmonary process. Overall nonspecific but likely nonobstructive bowel gas pattern. Fairly moderate diffuse colonic fecal stasis be demonstrated. Patient given stool softeners MiraLAX and suppository in the ER. No results yet. Patient denies any chest pain or shortness of breath denies cough. Denies any nausea or vomiting. Denies any burning with urination. Denies any weakness on one side of the body. Patient's mentation has returned to baseline. On 02/09/2018 patient is alert and oriented 3 she is complaining of abdominal discomfort, abdominal distention, and constipation for the last 5 days she is also complaining of epigastric burning sensation otherwise she denies any complaints there is no chest pain or shortness of breath no fever or chills no cough no dizziness no nausea or vomiting and no urinary symptoms 02/10/2018 patient had a large bowel movement yesterday. Her abdominal discomforts is improving. The epigastric burning sensation has resolved. Patient denies any chest pain or shortness of breath. Denies any nausea or vomiting. Denies any burning with urination. Urine culture is growing VRE white count has jumped up from 12.4-13.8. Infectious diseases been consulted and daptomycin has been added. Lipitor discontinued due to its interaction with daptomycin. Patient also having some dry nose and blood crusting in the nares. Humidity will be added to the oxygen. 02/11/2018 patient is still feeling generalized weakness and easily tired. Patient reports taking a shower and feeling tired afterwards. She had a low- grade temp of 100 last night. Also some lower blood sugar of 79 this morning. Her Levemir will be decreased to 18 units at bedtime metformin also discontinued patient has had a slight rise in creatinine is up to 1.05. White count also increased to 17.6. Patient's last bowel movement was 2 days ago. She has been refusing the lactulose. Abdominal pain is resolved. The denies any nausea or vomiting. She is passing gas. Denies any chest pain or shortness of breath did denies any urinary symptoms. On 02/12/2018 patient is alert and oriented 3 complaining of abdominal pain, abdominal distention, and constipation her last bowel movement was several days ago she is maintained on milk of magnesia, MiraLAX , Senokot, and glycerin suppositories, will continue with current management if patient unable to have a bowel movement by tomorrow will proceed witn enema, otherwise patient denies any fever or chills no headache or dizziness no chest pain or shortness of breath no cough no nausea or vomiting, and no urinary symptoms. On 02/13/2018 patient is alert and oriented 3 she is complaining of abdominal pain and distention she had constipation for several days so far she is maintained on multiple medication for constipation without any improvement she will be given Fleet enema today otherwise she denies any complaints there is no fever or chills no headache or dizziness no chest pain no shortness of breath no cough no nausea or vomiting no abdominal pain and no urinary symptoms Objective - Vital Signs Vital signs: Vital Signs Temp 99.1 F 02/13/18 15:10 Pulse 69 02/13/18 15:53 Resp 16 02/13/18 15:10 BP 156/60 02/13/18 15:10 Pulse Ox 95 02/13/18 15:10 Intake & Output 02/12/18 02/13/18 02/13/18 18:59 06:59 18:59 Intake Total 530 50 Balance 530 50 Weight 95.254 kg 89 kg Intake: Intake, IV Titration 50 50 Amount DAPTOmycin 400 mg In 50 50 Sodium Chloride 0.9% 50 ml @ 100 mls/hr IVPB Q24H [facility] Rx#:[id number] Oral 480 Other: Voiding Method Toilet Toilet # Voids 1 2 # Bowel Movements 0 - Exam Head normocephalic and atraumatic Neck supple no JVD no goiter no lymphadenopathy Lungs clear to auscultation bilaterally no wheezing or crackles Heart regular rate and rhythm S1-S2, no rub or gallop Abdomen is soft with mild diffuse tenderness and mild distention positive bowel sounds no hepatosplenomegaly Extremities no edema no cyanosis or clubbing Neuro alert and orientated to 3, no gross focal deficit - Labs CBC & Chem 7: 02/12/18 07:17 02/12/18 07:17 Labs: Abnormal Lab Results - Last 24 Hours (Table) 02/12/18 02/12/18 02/13/18 Range/Units 16:52 20:28 07:07 POC Glucose (mg/dL) 138 H 152 H 107 H (75-99) mg/dL 02/13/18 Range/Units 12:20 POC Glucose (mg/dL) 210 H (75-99) mg/dL Microbiology - Last 24 Hours (Table) 02/11/18 14:10 Blood Culture - Preliminary Blood No Growth after 48 hours Assessment and Plan Plan: 1. Generalized weakness likely multifactorial due to deconditioning from recent hospitalization as well as UTI and hypoglycemia. Awaiting further physical therapy recommendations about home with home care versus ECF 2. Acute metabolic encephalopathy resolved likely secondary to UTI and hyperglycemia 3. UTI: Urine culture growing VRE. Continue daptomycin . Infectious disease is following. Await repeat urine culture 4. Accelerated hypertension present on admission: Has improved 5. Constipation with fecal stasis noted on x-ray. Patient did have a bowel movement 2 days ago. Patient seen by GI service and they're recommending Senokot 2 tablets twice a day and MiraLAX 17 g daily. Outpatient colonoscopy. Patient refusing lactulose 6. Hypoglycemia with a known history of diabetes mellitus type 2. Hypoglycemia has resolved. Patient's appetite showing improvement. Patient's blood sugar 79 this morning. At this time we'll decrease Levemir to 18 units at bedtime. Metformin also discontinued due to slight rise in the creatinine 7. History of chronic persistent atrial fibrillation: EKG showing A. fib heart rate controlled. Continue Eliquis for anticoagulation and metoprolol 8. History of COPD stable resume nebulizer treatments 9. Chronic diastolic congestive heart failure. No evidence of exacerbation at this time. Continue Lasix 10. History of lung cancer with prior left lobectomy 11. Recent hospitalization with bronchitis with possible pneumonia and COPD and congestive heart failure exacerbation. 12. History of iron deficiency anemia: Continue iron supplement 13. Mild renal insufficiency: Creatinine 1.31 and BUN 24. Decrease Lasix to 40 mg daily. Add normal saline at 50 mL an hour. Repeat labs in a.m. GI prophylaxis Protonix and DVT prophylaxis Eliquis
[2018-02-13 17:12] LABS: Glucose,Whole Blood 186 mg/dL (75-99)
[2018-02-13 20:46] LABS: Glucose,Whole Blood 152 mg/dL (75-99)
[2018-02-13] MEDS: INSULIN DETEMIR 100 UNIT/ML 10 ML VIAL SQ SCH (21:18)
--- NOTE | 2018-02-13 23:40 | PN ---
PROGRESS NOTE DATE OF SERVICE: 02/13/2018. REASON FOR FOLLOWUP: Urinary tract infection. INTERVAL HISTORY: The patient is afebrile. She is breathing comfortably. Denies having any chest pain, cough. Abdominal pain has improved. No nausea, vomiting and no diarrhea. EXAMINATION: Blood pressure 156/60 with a pulse of 70, temperature of 99.1 She is 95% on 3 L nasal cannula. General description is an elderly female lying in bed in no distress. RESPIRATORY DISTRESS: Unlabored breathing, clear to auscultation anteriorly. HEART: S1, S2. Regular rate and rhythm. ABDOMEN: Soft, no tenderness. LABS: Repeat labs are pending. Repeat urine culture currently pending. DIAGNOSTIC IMPRESSION AND PLAN: Patient with VRE urinary tract infection and possible cystitis. Currently on daptomycin with repeat urine did show some yeast. Diflucan will be added and we will wait for repeat urine cultures to finalize. Continue supportive care. MMODL / IJN: [id number] /
[2018-02-14] MEDS: SODIUM CHLORIDE 0.9% 1,000 ML IV SCH (02:56)
[2018-02-14] MEDS: SYMBICORT 80-4.5 MCG INHALER INHALATION SCH ×2 (07:14→20:25)
[2018-02-14] MEDS: IPRATROPIUM-ALBUTEROL 3 ML NEB INHALATION SCH ×4 (07:14→20:25)
[2018-02-14 07:25] LABS: Glucose,Whole Blood 168 mg/dL (75-99)
--- NOTE | 2018-02-14 08:35 | CDI ---
Last Revision, September 2017 Documentation Clarification Form Date: February 13, 2018 08:30 From: Ainsley Burnette Admit Date: 02/07/2018 5:27:00 PM Patient Name: Arminda Tavarez Visit Number: [id number] ATTENTION: The Clinical Documentation Specialists (CDI) and [facility] Coding Staff appreciate your assistance in clarifying documentation. Please respond to the clarification below the line at the bottom and electronically sign. The CDI & [facility] Coding staff will review the response and follow-up if needed. Please note: Queries are made part of the Legal Health Record. If you have any questions, please contact the author of this message via ITS. Dr. Ramonita Sorenson, Pneumonia was documented in the notes on: 02/09 - 02/13 History/Risk Factors: COPD, CHF. chronic A-FIB, DM, lung cancer , hyperlipidemia Presented with weakness, altered mental state, UTI and abdominal pain/ constipation Clinical Indicators: WBC on admission: 15.2 X-ray: lower left lobe infiltrate Lung/Breathing assessment: normal Treatment: Antibiotics: IVPB Rocephin O2: 3L Breathing Tx: Symbicort, Duoneb In order to capture the severity of condition, please clarify if the condition signifies and you are treating for: Pneumonia ruled in Pneumonia ruled out Please specify: Aspiration Pneumonia, identify if: Due to solids or liquids Bacterial Pneumonia, specify causal organism (if known) Gram Negative Pneumonia Due to E. Coli Other bacteria (please specify) Viral Pneumonia, specify casual organism (if known) Healthcare Acquired Pneumonia/Pneumonia, unspecified Other, please specify Unable to determine Please continue to document in your progress notes, under the line below and discharge summary in order to capture severity of illness and risk of mortality. Include clinical findings that support your diagnosis. pneumonia ruled out MTDD
[2018-02-14] MEDS ORDERED: MORPHINE ORAL SOLN 10 MG/5 ML CUP PO PRN (08:54)
[2018-02-14] MEDS: DILTIAZEM ORAL 60 MG TAB PO SCH ×3 (09:22→20:09)
[2018-02-14] MEDS: FERROUS SULFATE 325 MG TAB PO SCH ×2 (09:22→16:03)
[2018-02-14] MEDS: LOSARTAN 50 MG TAB PO SCH (09:22)
[2018-02-14] MEDS: GABAPENTIN 400 MG CAP PO SCH ×3 (09:22→20:09)
[2018-02-14] MEDS: FLUCONAZOLE 100 MG TAB PO SCH (09:22)
[2018-02-14] MEDS: LORATADINE 10 MG TAB PO SCH (09:22)
[2018-02-14] MEDS: GLIMEPIRIDE 4 MG TAB PO SCH ×2 (09:22→16:03)
[2018-02-14] MEDS: PANTOPRAZOLE 40 MG TABLET PO SCH ×2 (09:22→16:03)
[2018-02-14] MEDS: APIXABAN 5 MG TAB PO SCH ×2 (09:22→20:08)
[2018-02-14] MEDS: METOPROLOL SUCCINATE (ER) 100 MG TAB.ER.24H PO SCH (09:22)
[2018-02-14] MEDS: CHOLECALCIFEROL 1,000 UNIT TAB PO SCH (09:22)
[2018-02-14] MEDS: SENNOSIDES-DOCUSATE SODIUM 1 EACH TAB PO SCH ×2 (09:23→20:09)
[2018-02-14] MEDS: FUROSEMIDE 40 MG TAB PO SCH (09:23)
[2018-02-14] MEDS: GLYCERIN ADULT SUPPOSITORY 1 EACH RECTAL SCH (09:24)
[2018-02-14] MEDS: CYANOCOBALAMIN 500 MCG TAB PO SCH (09:24)
[2018-02-14] MEDS: SPIRONOLACTONE 25 MG TAB PO SCH (09:24)
[2018-02-14] MEDS: POLYETHYLENE GLYCOL 3350 17 GM POWD.PACK PO SCH (09:24)
[2018-02-14] MEDS: INSULIN ASPART 100 UNIT/ML 1 ML 10 ML VIAL SQ SCH ×4 (09:29→21:50)
[2018-02-14] MEDS: MAGNESIUM HYDROXIDE 2,400 MG/10 ML CUP PO SCH (09:36)
[2018-02-14 10:10] LABS: Anisocytosis Slight; Basophils % (A) 0 %; Eosinophils # (A) 0.1 k/uL (0-0.7); Eosinophils % (A) 1 %; HCT 28.7 % (34.0-46.0); HGB 8.4 gm/dL (11.4-16.0); Hypochromasia Marked; Lymphocytes # (A) 1.9 k/uL (1.0-4.8); Lymphocytes % (A) 15 %; MCH 26.1 pg (25.0-35.0); MCHC 29.5 g/dL (31.0-37.0); MCV 88.6 fL (80.0-100.0); Mean Platelet Volume 7.8; Monocytes # (A) 0.6 k/uL (0-1.0); Monocytes % (A) 5 %; Neutrophils # (A) 10.1 k/uL (1.3-7.7); Neutrophils % (A) 78 %; Platelet Count 291 k/uL (150-450); RBC 3.23 m/uL (3.80-5.40); RDW 16.3 % (11.5-15.5); WBC 12.9 k/uL (3.8-10.6)
[2018-02-14 10:35] LABS: Albumin 2.9 g/dL (3.5-5.0); Calcium 8.9 mg/dL (8.4-10.2); Potassium 5.4 mmol/L (3.5-5.1); Total Bilirubin 0.4 mg/dL (0.2-1.3); Total Protein 5.4 g/dL (6.3-8.2)
[2018-02-14 11:51] LABS: Glucose,Whole Blood 143 mg/dL (75-99)
[2018-02-14] MEDS ORDERED: SODIUM POLYSTYRENE SULFONATE 15 GM/60 ML BOTTLE PO STA (12:26)
--- NOTE | 2018-02-14 13:26 | P.CRDCN ---
History of Present Illness Consult date: 02/14/18 History of present illness: Mrs. Tavarez is a pleasant 72-year-old female past medical history significant for chronic persistent atrial fibrillation on rod cup filler anti- coagulation with Eliquis, COPD, diastolic heart failure, hypertension, dyslipidemia and diabetes mellitus. She follows with Dr. Jean in the office. We have been asked to see her in consultation for chest pain. She states she was sitting down eating lunch when she developed a tightening pain in the chest that started on the right side and radiated across to the left and into her axilla. The pain lasted around 2-3 hours with no specific alleviating factors. She denies radiation into the arm, back, neck or jaw. She denies associated shortness of breath, dizziness, palpitations, nausea, vomiting or diaphoresis. EKG obtained at that time reveals atrial fibrillation with controlled ventricular response heart rate 55. Cardiac enzymes were obtained at that time of the chest pain as well and were negative x2. She is currently being treated in the hospital for urinary tract infection causing generalized weakness with acute metabolic encephalopathy. Telemetry tracings reviewed reveal atrial fibrillation with slow ventricular response with one incident of a pause approximately 2.5-3 seconds yesterday afternoon. She does not recall feeling any symptoms of dizziness yesterday. Current cardiac medications include aldactone 25 mg daily, toprol 100 mg daily, losartan 100 mg daily, Lasix 40 mg twice a day, Cardizem 60 mg 3 times a day, atorvastatin 40 mg daily and Eliquis 5 mg twice a day. Review of Systems At the time of my exam: CONSTITUTIONAL: Denies fever. Denies chills. EYES: Denies blurred vision. Denies vision changes. Denies eye pain. EARS, NOSE, MOUTH & THROAT: Denies headache. Denies sore throat. Denies ear pain. CARDIOVASCULAR: Denies chest pain. Denies shortness of breath. Denies orthopnea. Denies PND. Denies palpitations. RESPIRATORY: Denies cough. GASTROINTESTINAL: Denies abdominal pain. Denies diarrhea. Denies constipation. Denies nausea. Denies vomiting. MUSCULOSKELETAL: Denies myalgias. INTEGUMENTARY: Denies pruitis. Denies rash. NEUROLOGIC: Denies numbness. Denies tingling. Denies weakness. PSYCHIATRIC: Denies anxiety. Denies depression. ENDOCRINE: Denies fatigue. Denies weight change. Denies polydipsia. Denies polyurina. GENITOURINARY: Denies burning, hematuria or urgency with micturation. HEMATOLOGIC: Denies history of anemia. Denies bleeding. Past Medical History Past Medical History: Atrial Fibrillation, Coronary Artery Disease (CAD), Heart Failure, COPD, Diabetes Mellitus, GERD/Reflux, Hyperlipidemia, Hypertension, Memory Impairment Additional Past Medical History / Comment(s): COPD severe with an FEV1 of 36%, chronic hypoxic respiratory failure, non-small cell lung cancer with a previous left lower lobe resection, chronic atrial fibrillation, hypertension, coronary artery disease, diabetes mellitus, meningitis back in the 70s History of Any Multi-Drug Resistant Organisms: VRE Date of last positivie culture/infection: 02/07/18 MDRO Source:: VRE URINE Past Surgical History: Heart Catheterization With Stent, Tubal Ligation Additional Past Surgical History / Comment(s): Left lower lobe lung removed, right shoulder rotator cuff.egd w/ bx Past Anesthesia/Blood Transfusion Reactions: No Reported Reaction Additional Past Anesthesia/Blood Transfusion Reaction / Comment(s): Claustrophobia. past blood transfusion-no reaction Date of Last Stent Placement:: unk Smoking Status: Former smoker - Past Family History Mother History Unknown: Yes Family Medical History: No Reported History Father Family Medical History: Diabetes Mellitus Medications and Allergies Home Medications Medication Instructions Recorded Confirmed Type Atorvastatin [Lipitor] 40 mg PO HS 11/17/16 02/07/18 History Cholecalciferol [Vitamin D3] 4,000 unit PO DAILY 11/17/16 02/07/18 History Cyanocobalamin [Vitamin B-12] 500 mcg PO DAILY 11/17/16 02/07/18 History Fluticasone/Salmeterol [Advair 1 puff INHALATION RT-BID 11/17/16 02/07/18 History 250-50 Diskus] Glimepiride [Amaryl] 4 mg PO AC-BID 11/17/16 02/07/18 History Insulin Aspart [NovoLOG Flexpen] 20 units SQ AC-TID 11/17/16 02/07/18 History Insulin Degludec [Tresiba 98 unit SQ DAILY 11/17/16 02/07/18 History Flextouch U-200] Albuterol Inhaler [Ventolin Hfa 2 puff INHALATION RT-BID 07/22/17 02/07/18 History Inhaler] Loratadine [Claritin] 10 mg PO DAILY 07/22/17 02/07/18 History metFORMIN HCL [Glucophage] 500 mg PO BID 07/22/17 02/07/18 History Apixaban [Eliquis] 5 mg PO BID #60 tab 08/02/17 02/07/18 Rx Losartan [Cozaar] 100 mg PO DAILY #30 tab 08/02/17 02/07/18 Rx Spironolactone [Aldactone] 25 mg PO DAILY #30 tab 08/02/17 02/07/18 Rx Furosemide [Lasix] 40 mg PO BID 12/31/17 02/07/18 History Pantoprazole Sodium [Protonix] 40 mg PO BID #60 tablet.dr 01/05/18 02/07/18 Rx Acetaminophen Tab [Tylenol] 1,000 mg PO Q6HR PRN tab 02/01/18 02/07/18 Rx Diltiazem Oral [Cardizem*] 60 mg PO TID tab 02/01/18 02/07/18 Rx Docusate [Colace] 100 mg PO DAILY cap 02/01/18 02/07/18 Rx Ferrous Sulfate [Iron (65 MG 325 mg PO BID tab 02/01/18 02/07/18 Rx Elemental)] Ipratropium-Albuterol Nebulize 3 ml INHALATION RT-QID ampul.neb 02/01/18 Rx [Duoneb 0.5 mg-3 mg/3 ml Soln] Metoprolol Succinate (ER) [Toprol 100 mg PO DAILY tab.er.24h 02/01/18 02/07/18 Rx XL] Cefuroxime Axetil [Ceftin] 500 mg PO BID #14 tab 02/03/18 02/07/18 Rx Polyethylene Glycol 3350 [Miralax] 17 gm PO DAILY #30 packet 02/03/18 02/07/18 Rx Gabapentin [Neurontin] 800 mg PO TID 02/07/18 02/07/18 History Allergies Allergy/AdvReac Type Severity Reaction Status Date / Time codeine Allergy Unknown Verified 02/07/18 16:56 Physical Exam Vitals: Vital Signs Temp Pulse Pulse Resp BP Pulse Ox 02/14/18 07:27 72 16 02/14/18 07:17 71 02/14/18 05:35 98.2 F 71 20 154/79 93 L 02/13/18 23:00 100.5 F H 77 24 145/57 92 L 02/13/18 21:12 92 156/67 02/13/18 19:41 72 02/13/18 19:32 72 02/13/18 15:53 69 02/13/18 15:45 66 02/13/18 15:10 99.1 F 70 16 156/60 95 02/13/18 11:38 70 02/13/18 11:29 66 Intake and Output 02/13/18 02/14/18 02/14/18 22:59 06:59 14:59 Other: Voiding Method Toilet # Voids 1 3 # Bowel Movements 1 Weight 89 kg 89 kg Blood pressure 154/79 heart rate 71 afebrile maintaining oxygen saturation on 3 L nasal cannula GENERAL: This is a 72-year-old female in no apparent distress at the time of my examination. HEENT: Head is atraumatic, normocephalic. Pupils are equal, round. Sclerae anicteric. Conjunctivae are clear. Mucous membranes of the mouth are moist. Neck is supple. There is no jugular venous distention. No carotid bruit is heard. LUNGS: Clear to auscultation no wheezes, rales or rhonchi. No chest wall tenderness is noted on palpation or with deep breathing. HEART: Irregular rate and rhythm without murmurs, rubs or gallops. S1 and S2 heard. ABDOMEN: Soft, nontender. Bowel sounds are heard. No organomegaly noted. EXTREMITIES: No evidence of peripheral edema and no calf tenderness noted. VASCULAR: Radial and dorsalis pedis pulses palpated, no evidence of clubbing. NEUROLOGIC: Patient is awake, alert and oriented x3. Results 02/14/18 09:44 02/14/18 09:44 Current Medications Generic Name Dose Route Start Last Admin Trade Name Freq PRN Reason Stop Dose Admin Acetaminophen 1,000 mg 02/08/18 10:10 02/11/18 17:32 Tylenol Tab PO 1,000 mg Q6HR PRN Administration Fever and/ or Mild Pain Albuterol/Ipratropium 3 ml 02/08/18 12:00 02/14/18 07:14 Duoneb 0.5 Mg-3 Mg/3 Ml Soln INHALATION 3 ml RT-QID BRITTANI Administration Apixaban 5 mg 02/08/18 10:15 02/14/18 09:22 Eliquis PO 5 mg BID BRITTANI Administration Budesonide/Formoterol Fumarate 2 puff 02/08/18 20:00 02/14/18 07:14 Symbicort 80-4.5 Mcg Inhaler INHALATION 2 puff RT-BID BRITTANI Administration Calcium Carbonate/Glycine 1,000 mg 02/09/18 12:15 02/12/18 17:35 Tums PO 1,000 mg QID PRN Administration Heartburn Cholecalciferol 4,000 unit 02/09/18 12:00 02/14/18 09:22 Vitamin D3 PO 4,000 unit 1200 BRITTANI Administration Cyanocobalamin 500 mcg 02/09/18 12:00 02/14/18 09:24 Vitamin B-12 PO 500 mcg 1200 BRITTANI Administration Diltiazem HCl 60 mg 02/08/18 10:15 02/14/18 09:22 Cardizem Oral PO 60 mg TID BRITTANI Administration Enalaprilat 1.25 mg 02/08/18 01:43 02/08/18 04:14 Vasotec IVP 1.25 mg Q4HR PRN Administration sbp over 160/dbp over 90 Ferrous Sulfate 325 mg 02/08/18 17:30 02/14/18 09:22 Feosol PO 325 mg BID-W/MEALS BRITTANI Administration Fluconazole 100 mg 02/14/18 09:00 02/14/18 09:22 Diflucan PO 100 mg DAILY BRITTANI Administration Furosemide 40 mg 02/12/18 09:00 02/14/18 09:23 Lasix PO 40 mg DAILY BRITTANI Administration Gabapentin 800 mg 02/08/18 16:00 02/14/18 09:22 Neurontin PO 800 mg TID BRITTANI Administration Glimepiride 4 mg 02/10/18 11:00 02/14/18 09:22 Amaryl PO 4 mg AC-BID BRITTANI Administration Glycerin 1 each 02/08/18 09:00 02/14/18 09:24 Glycerin Adult Suppository RECTAL Not Given DAILY [facility] Daptomycin 400 mg/ Sodium 50 mls @ 100 mls/hr 02/10/18 10:00 02/14/18 09:22 Chloride IVPB 100 mls/hr Q24H BRITTANI Administration Sodium Chloride 1,000 mls @ 50 mls/hr 02/11/18 11:45 02/14/18 02:56 Saline 0.9% IV 50 mls/hr .Q20H BRITTANI Administration Insulin Aspart 0 unit 02/08/18 12:30 02/14/18 09:29 Novolog SQ 2 unit ACHS BRITTANI Administration Protocol Insulin Detemir 18 unit 02/11/18 21:00 02/13/18 21:18 Levemir SQ 18 unit HS BRITTANI Administration Loratadine 10 mg 02/08/18 10:15 02/14/18 09:22 Claritin PO 10 mg DAILY BRITTANI Administration Losartan Potassium 100 mg 02/08/18 10:15 02/14/18 09:22 Cozaar PO 100 mg DAILY BRITTANI Administration Magnesium Hydroxide 2,400 mg 02/09/18 12:17 02/12/18 21:10 Milk Of Magnesia PO 2,400 mg ONCE PRN Administration Constipation Magnesium Hydroxide 2,400 mg 02/11/18 14:00 02/14/18 09:36 Milk Of Magnesia PO Not Given DAILY [facility] Metoprolol Succinate 50 mg 02/15/18 09:00 Toprol Xl PO DAILY [facility] Morphine Sulfate 3 mg 02/14/18 08:54 Morphine Oral Silvia 2mg/Ml PO Q2HR PRN Severe Pain Ondansetron HCl 4 mg 02/08/18 19:28 02/11/18 12:25 Zofran IVP 4 mg Q6HR PRN Administration Nausea And Vomiting Pantoprazole Sodium 40 mg 02/08/18 10:15 02/14/18 09:22 Protonix PO 40 mg AC-BID BRITTANI Administration Polyethylene Glycol 17 gm 02/08/18 09:00 02/14/18 09:24 Miralax PO 17 gm DAILY BRITTANI Administration Senna/Docusate Sodium 2 each 02/09/18 21:00 02/14/18 09:23 Senokot-S PO 2 each BID BRITTANI Administration Spironolactone 25 mg 02/09/18 09:00 02/14/18 09:24 Aldactone PO 25 mg DAILY BRITTANI Administration Intake and Output 02/13/18 02/14/18 02/14/18 22:59 06:59 14:59 Other: Voiding Method Toilet # Voids 1 3 # Bowel Movements 1 Weight 89 kg 89 kg 02/12/18 07:17 05/05/18 07:17 Assessment and Plan Assessment: ASSESSMENT 1. Chest pain, atypical. An acute coronary event has been ruled out. 2. Chronic persistent atrial fibrillation on rod cup filler anticoagulation with slow ventricular response and pause 3. History of diastolic heart failure, currently euvolemic 4. Hypertension 5. History of coronary artery disease, details unavailable 6. COPD 7. Diabetes mellitus 8. Obesity PLAN An acute coronary event has been ruled out. Decrease toprol to 50 mg daily and continue to monitor for slow ventricular response or pauses. Further recommendations based on clinical course. Thank you kindly for this consultation. Nurse Practitioner note has been reviewed, I agree with a documented findings and plan of care. Patient was seen and examined.
[2018-02-14 13:55] VITALS: BMI 29.0
--- NOTE | 2018-02-14 14:16 | P.PN ---
Subjective Progress Note Date: 02/14/18 This is a 72-year-old female, patient of Dr. Chery. She has a known past medical history of COPD, congestive heart failure, chronic atrial fibrillation, diabetes mellitus type 2, lung cancer with prior left lobectomy and hyperlipidemia. Patient was just recently discharged from [facility] on 02/03/2018 and at that time she was treated for congestive heart failure exacerbation, COPD and pneumonia. Patient reports having a bowel movement the day after discharge. However, she continued to be very weak was having some confusion. The at bedside reports that the patient was overall so weak she had difficulty getting from the bathroom to the bed. There is no actual falling or injury. But she did need assistance. Both her legs and arms were very weak. Patient felt that she was feverish at home. Also is having evidence of hypoglycemia poor oral intake and decrease in appetite. On admission she had a white count of 15.2 and evidence of a UTI and was started on Rocephin. Blood sugar on admission was 30 she was given dextrose. Acute abdominal series shows chronic changes and cardiomegaly without new suspicious acute pulmonary process. Overall nonspecific but likely nonobstructive bowel gas pattern. Fairly moderate diffuse colonic fecal stasis be demonstrated. Patient given stool softeners MiraLAX and suppository in the ER. No results yet. Patient denies any chest pain or shortness of breath denies cough. Denies any nausea or vomiting. Denies any burning with urination. Denies any weakness on one side of the body. Patient's mentation has returned to baseline. On 02/09/2018 patient is alert and oriented 3 she is complaining of abdominal discomfort, abdominal distention, and constipation for the last 5 days she is also complaining of epigastric burning sensation otherwise she denies any complaints there is no chest pain or shortness of breath no fever or chills no cough no dizziness no nausea or vomiting and no urinary symptoms 02/10/2018 patient had a large bowel movement yesterday. Her abdominal discomforts is improving. The epigastric burning sensation has resolved. Patient denies any chest pain or shortness of breath. Denies any nausea or vomiting. Denies any burning with urination. Urine culture is growing VRE white count has jumped up from 12.4-13.8. Infectious diseases been consulted and daptomycin has been added. Lipitor discontinued due to its interaction with daptomycin. Patient also having some dry nose and blood crusting in the nares. Humidity will be added to the oxygen. 02/11/2018 patient is still feeling generalized weakness and easily tired. Patient reports taking a shower and feeling tired afterwards. She had a low- grade temp of 100 last night. Also some lower blood sugar of 79 this morning. Her Levemir will be decreased to 18 units at bedtime metformin also discontinued patient has had a slight rise in creatinine is up to 1.05. White count also increased to 17.6. Patient's last bowel movement was 2 days ago. She has been refusing the lactulose. Abdominal pain is resolved. The denies any nausea or vomiting. She is passing gas. Denies any chest pain or shortness of breath did denies any urinary symptoms. 02/14/2018 patient had a low-grade temperature 100.5 yesterday evening. White count has decreased to 12.9. She remains on daptomycin for VRE in the urine. Repeat urine culture grew Dana Dana Morton. Infectious disease added Diflucan. Patient did have a bowel movement yesterday. Patient seen by cardiology in regards to chest pain. She also had evidence of cardiac causes the metoprolol was decreased from 100mg to 50mg daily. Patient is eating and drinking adequately. Creatinine has normalized at 0.92. Fluids will be hep- locked. Potassium is 5.4 and she'll receive Kayexalate. Hemoglobin has dropped to 8.4 from 8.8 possible related to fluids. Patient has not had any signs or symptoms of bleeding. And she is on iron Objective - Vital Signs Vital signs: Vital Signs Temp 98.2 F 02/14/18 05:35 Pulse 72 02/14/18 07:27 Resp 16 02/14/18 08:00 BP 154/79 02/14/18 05:35 Pulse Ox 93 L 02/14/18 05:35 Intake & Output 02/13/18 02/14/18 02/14/18 18:59 06:59 18:59 Intake Total 170 Balance 170 Weight 89 kg 89 kg Intake: Intake, IV Titration 50 Amount DAPTOmycin 400 mg In 50 Sodium Chloride 0.9% 50 ml @ 100 mls/hr IVPB Q24H [facility] Rx#:[id number] Oral 120 Other: Voiding Method Toilet Toilet Toilet # Voids 2 3 # Bowel Movements 1 - Exam Head normocephalic Neck supple Lungs clear to auscultation bilaterally no wheezing or crackles Heart regular rate and rhythm S1-S2, no rub or gallop Abdomen is soft nontender nondistended positive bowel sounds no hepatosplenomegaly Extremities trace to +1 edema bilaterally extremities Neuro alert and orientated to 3 - Labs CBC & Chem 7: 02/14/18 09:44 02/14/18 09:44 Labs: Abnormal Lab Results - Last 24 Hours (Table) 02/13/18 02/13/18 02/14/18 Range/Units 17:04 20:45 07:21 WBC (3.8-10.6) k/uL RBC (3.80-5.40) m/uL Hgb (11.4-16.0) gm/dL Hct (34.0-46.0) % MCHC (31.0-37.0) g/dL RDW (11.5-15.5) % Neutrophils # (1.3-7.7) k/uL Sodium (137-145) mmol/L Potassium (3.5-5.1) mmol/L Chloride (98-107) mmol/L BUN (7-17) mg/dL Glucose (74-99) mg/dL POC Glucose (mg/dL) 186 H 152 H 168 H (75-99) mg/dL Total Protein (6.3-8.2) g/dL Albumin (3.5-5.0) g/dL 02/14/18 02/14/18 02/14/18 Range/Units 09:44 09:44 11:37 WBC 12.9 H (3.8-10.6) k/uL RBC 3.23 L (3.80-5.40) m/uL Hgb 8.4 L (11.4-16.0) gm/dL Hct 28.7 L (34.0-46.0) % MCHC 29.5 L (31.0-37.0) g/dL RDW 16.3 H (11.5-15.5) % Neutrophils # 10.1 H (1.3-7.7) k/uL Sodium 133 L (137-145) mmol/L Potassium 5.4 H (3.5-5.1) mmol/L Chloride 95 L (98-107) mmol/L BUN 24 H (7-17) mg/dL Glucose 175 H (74-99) mg/dL POC Glucose (mg/dL) 143 H (75-99) mg/dL Total Protein 5.4 L (6.3-8.2) g/dL Albumin 2.9 L (3.5-5.0) g/dL Microbiology - Last 24 Hours (Table) 02/11/18 21:33 Urine Culture - Final Urine,Voided Dana glabrata 02/11/18 14:10 Blood Culture - Preliminary Blood No Growth after 48 hours Assessment and Plan Assessment: 1. Generalized weakness likely multifactorial due to deconditioning from recent hospitalization as well as UTI and hypoglycemia. Awaiting further physical therapy recommendations about home with home care versus ECF 2. Acute metabolic encephalopathy resolved likely secondary to UTI and hyperglycemia 3. UTI with possible cystitis and sepsis present on admission: Urine culture growing VRE. Continue daptomycin . Infectious disease is following. Repeat blood culture growing Dana glabrata. Infectious diseases added Diflucan. 4. Accelerated hypertension present on admission: Has improved 5. Constipation with fecal stasis noted on x-ray. Patient did have a bowel movement 2 days ago. Patient seen by GI service and they're recommending Senokot 2 tablets twice a day and MiraLAX 17 g daily. Outpatient colonoscopy. Patient refusing lactulose. Also continue medical magnesium. Patient is now having bowel movements 6. Hypoglycemia with a known history of diabetes mellitus type 2. Hypoglycemia has resolved. Patient's blood sugars are stable. Continue with current regimen 7. History of chronic persistent atrial fibrillation: EKG showing A. fib heart rate controlled. Continue Eliquis for anticoagulation and metoprolol 8. History of COPD stable resume nebulizer treatments 9. Chronic diastolic congestive heart failure. No evidence of exacerbation at this time. Continue Lasix 10. History of lung cancer with prior left lobectomy 11. Recent hospitalization with bronchitis with possible pneumonia and COPD and congestive heart failure exacerbation. 12. History of iron deficiency anemia: Continue iron supplement 13. Acute renal failure resolved: Discontinue IV fluids. Continue monitoring kidney functions 14. Hyperkalemia: Discontinue Aldactone. Give Kayexalate 30 g by mouth 1. Repeat potassium level in a.m. 15. Episode of chest pain over the weekend resolved. Troponin negative. Patient seen by cardiology. They're recommending stress test outpatient 16. Cardiac pauses: Cardiology has decreased metoprolol. 100 mg daily to 50 mg daily When patient is stable for discharge. She'll be discharged to [facility] for further rehabilitation GI prophylaxis Protonix and DVT prophylaxis Mary I performed an examination of the patient and discussed their management with the physician Chemistry Professor. I have reviewed the Physician Chemistry Professor's notes and agree with the documented findings and plan of care
--- NOTE | 2018-02-14 16:44 | PN ---
PROGRESS NOTE DATE OF SERVICE: 02/14/2018. REASON FOR FOLLOWUP: VRE urinary tract infection. INTERVAL HISTORY: The patient is currently afebrile. She seemed to be feeling better. Breathing comfortably. No chest pain. No cough. No abdominal pain or diarrhea. EXAMINATION: Blood pressure 146/53 with a pulse of 70. Temp 97.4. She is 93% on 2 L nasal cannula. General description is an elderly female lying in bed in no distress. RESPIRATORY SYSTEM: Unlabored breathing. Clear to auscultation anteriorly. HEART: S1, S2. Regular rate and rhythm. ABDOMEN: Soft, no tenderness. LABS: Repeat UA showing mostly Dana. White count of 12.9. DIAGNOSTIC IMPRESSION AND PLAN: Patient with VRE urinary tract infection, adequately treated. Repeat urine cultures so far negative showing Dana. Daptomycin can be discontinued and a short course of oral Diflucan for about 5-7 days. Continue supportive care. MMODL / IJN: [id number] /
[2018-02-14 17:06] LABS: Glucose,Whole Blood 203 mg/dL (75-99)
[2018-02-14 20:44] LABS: Glucose,Whole Blood 179 mg/dL (75-99)
[2018-02-14] MEDS: INSULIN DETEMIR 100 UNIT/ML 10 ML VIAL SQ SCH (21:50)
[2018-02-15 07:05] LABS: Glucose,Whole Blood 159 mg/dL (75-99)
--- NOTE | 2018-02-15 07:35 | CDI ---
Last Revision, September 2017 Documentation Clarification Form Date: 02/15/2018 7:29:00 AM From: Ainsley Burnette Admit Date: 02/07/2018 5:27:00 PM Patient Name: Arminda Tavarez Visit Number: [id number] ATTENTION: The Clinical Documentation Specialists (CDI) and [facility] Coding Staff appreciate your assistance in clarifying documentation. Please respond to the clarification below the line at the bottom and electronically sign. The CDI & [facility] Coding staff will review the response and follow-up if needed. Please note: Queries are made part of the Legal Health Record. If you have any questions, please contact the author of this message via ITS. Dr. Ramonita Sorenson, Documentation and location in medical record included possible pneumonia and UTI. History/Risk Factors: COPD, CHF, chronic A-FIB , DM 2, lung cancer , hyperlipidemia, UTI, pneumonia presented with generalized weakness, confusion Clinical Indicators: WBC on admission: 15.2 Lactic acid: on admission 2.9 Vitals signs on admission: T 97.0, P 79, R 24, 189/75, 93% RA UTI Treatment: Antibiotics: IVP Rocephin IV Bolus: x2 Monitor Labs In your professional opinion, please clarify if these findings signify one of the following conditions, whether the condition is POA, and cause, if known: Condition Sepsis ruled in Sepsis ruled out Other, please specify Unable to determine Present on Admission: Yes No Please continue to document in your progress notes, under the line below and/ or in the discharge summary in order to capture severity of illness and risk of mortality. Include clinical findings that support your diagnosis. MTDD
[2018-02-15] MEDS: GLYCERIN ADULT SUPPOSITORY 1 EACH RECTAL SCH (08:12)
[2018-02-15] MEDS: POLYETHYLENE GLYCOL 3350 17 GM POWD.PACK PO SCH (08:15)
[2018-02-15] MEDS: MAGNESIUM HYDROXIDE 2,400 MG/10 ML CUP PO SCH (08:15)
[2018-02-15] MEDS: PANTOPRAZOLE 40 MG TABLET PO SCH ×2 (08:16→18:05)
[2018-02-15] MEDS: CYANOCOBALAMIN 500 MCG TAB PO SCH (08:16)
[2018-02-15] MEDS: FERROUS SULFATE 325 MG TAB PO SCH ×2 (08:16→18:05)
[2018-02-15] MEDS: SENNOSIDES-DOCUSATE SODIUM 1 EACH TAB PO SCH ×2 (08:16→21:43)
[2018-02-15] MEDS: LORATADINE 10 MG TAB PO SCH (08:16)
[2018-02-15] MEDS: APIXABAN 5 MG TAB PO SCH ×2 (08:16→21:43)
[2018-02-15] MEDS: LOSARTAN 50 MG TAB PO SCH (08:16)
[2018-02-15] MEDS: CHOLECALCIFEROL 1,000 UNIT TAB PO SCH (08:16)
[2018-02-15] MEDS: GLIMEPIRIDE 4 MG TAB PO SCH ×2 (08:16→18:05)
[2018-02-15] MEDS: METOPROLOL SUCCINATE (ER) 50 MG TAB.ER.24H PO SCH (08:16)
[2018-02-15] MEDS: FUROSEMIDE 40 MG TAB PO SCH (08:17)
[2018-02-15] MEDS: INSULIN ASPART 100 UNIT/ML 1 ML 10 ML VIAL SQ SCH ×4 (08:17→21:44)
[2018-02-15] MEDS: FLUCONAZOLE 100 MG TAB PO SCH (08:17)
[2018-02-15] MEDS: DILTIAZEM ORAL 60 MG TAB PO SCH ×3 (08:17→21:43)
[2018-02-15] MEDS: GABAPENTIN 400 MG CAP PO SCH ×3 (08:17→21:43)
[2018-02-15 08:28] LABS: Albumin 2.8 g/dL (3.5-5.0); Anisocytosis Slight; Basophils % (A) 0 %; Calcium 8.7 mg/dL (8.4-10.2); Eosinophils # (A) 0.2 k/uL (0-0.7); Eosinophils % (A) 2 %; HCT 29.4 % (34.0-46.0); HGB 8.8 gm/dL (11.4-16.0); Hypochromasia Marked; Lymphocytes # (A) 1.8 k/uL (1.0-4.8); Lymphocytes % (A) 15 %; MCH 26.3 pg (25.0-35.0); MCHC 29.8 g/dL (31.0-37.0); MCV 88.4 fL (80.0-100.0); Mean Platelet Volume 7.5; Monocytes # (A) 0.4 k/uL (0-1.0); Monocytes % (A) 3 %; Neutrophils # (A) 9.9 k/uL (1.3-7.7); Neutrophils % (A) 79 %; Platelet Count 300 k/uL (150-450); Potassium 4.8 mmol/L (3.5-5.1); RBC 3.33 m/uL (3.80-5.40); RDW 16.2 % (11.5-15.5); Total Bilirubin 0.3 mg/dL (0.2-1.3); Total Protein 5.2 g/dL (6.3-8.2); WBC 12.5 k/uL (3.8-10.6)
[2018-02-15] MEDS: SYMBICORT 80-4.5 MCG INHALER INHALATION SCH ×2 (08:39→20:55)
[2018-02-15] MEDS: IPRATROPIUM-ALBUTEROL 3 ML NEB INHALATION SCH ×4 (08:39→20:54)
[2018-02-15 12:33] LABS: Glucose,Whole Blood 193 mg/dL (75-99)
--- NOTE | 2018-02-15 13:15 | P.PN ---
Subjective Progress Note Date: 02/15/18 Mrs. Tavarez is a pleasant 72-year-old female past medical history significant for chronic persistent atrial fibrillation on chcf anti- coagulation with Eliquis, COPD, diastolic heart failure, hypertension, dyslipidemia and diabetes mellitus. She follows with Dr. Jean in the office. We have been asked to see her in consultation for chest pain. She states she was sitting down eating lunch when she developed a tightening pain in the chest that started on the right side and radiated across to the left and into her axilla. The pain lasted around 2-3 hours with no specific alleviating factors. She denies radiation into the arm, back, neck or jaw. She denies associated shortness of breath, dizziness, palpitations, nausea, vomiting or diaphoresis. EKG obtained at that time reveals atrial fibrillation with controlled ventricular response heart rate 55. Cardiac enzymes were obtained at that time of the chest pain as well and were negative x2. She is currently being treated in the hospital for urinary tract infection causing generalized weakness with acute metabolic encephalopathy. Telemetry tracings reviewed reveal atrial fibrillation with slow ventricular response with one incident of a pause approximately 2.5-3 seconds yesterday afternoon. She does not recall feeling any symptoms of dizziness yesterday. Current cardiac medications include aldactone 25 mg daily, toprol 100 mg daily, losartan 100 mg daily, Lasix 40 mg twice a day, Cardizem 60 mg 3 times a day, atorvastatin 40 mg daily and Eliquis 5 mg twice a day. 02/15/2018 Patient was seen and examined today for follow-up. Yesterday Toprol was decreased to 50 mg daily for a pause noted on telemetry. Tracings have been reviewed and there has been no evidence of further pauses. She is sitting up in bed in no acute distress with no complaints of chest pain, dizziness, palpitations, nausea, vomiting or shortness of breath. Blood pressure 146/52 heart rate 72. WBC 12.5, hemoglobin 8.8, platelets 300, sodium 138, potassium 4.8, creatinine 0.81. Objective - Vital Signs Vital signs: Vital Signs Temp 98.9 F 02/15/18 06:05 Pulse 72 02/15/18 12:09 Resp 24 02/15/18 06:05 BP 146/52 02/15/18 06:05 Pulse Ox 93 L 05/08/18 06:05 Intake & Output 02/14/18 02/15/18 02/15/18 18:59 06:59 18:59 Intake Total 600 Balance 600 Weight 89 kg 89 kg Intake: Oral 600 Other: Voiding Method Toilet Toilet # Voids 1 2 1 # Bowel Movements 0 - Exam GENERAL: Well-appearing, well-nourished and in no acute distress. NECK: Supple without JVD or thyromegaly. LUNGS: Breath sounds clear to auscultation bilaterally. Respiration equal and unlabored. No wheezes, rales or rhonchi. HEART: Irregular rate and rhythm without murmurs, rubs or gallops. S1 and S2 heard. EXTREMITIES: Normal range of motion, no edema. No clubbing or cyanosis. Peripheral pulses intact. - Labs CBC & Chem 7: 02/15/18 07:54 02/15/18 07:54 Labs: Abnormal Lab Results - Last 24 Hours (Table) 02/14/18 02/14/18 02/15/18 Range/Units 17:01 20:42 07:03 WBC (3.8-10.6) k/uL RBC (3.80-5.40) m/uL Hgb (11.4-16.0) gm/dL Hct (34.0-46.0) % MCHC (31.0-37.0) g/dL RDW (11.5-15.5) % Neutrophils # (1.3-7.7) k/uL Chloride (98-107) mmol/L Carbon Dioxide (22-30) mmol/L BUN (7-17) mg/dL Glucose (74-99) mg/dL POC Glucose (mg/dL) 203 H 179 H 159 H (75-99) mg/dL Total Protein (6.3-8.2) g/dL Albumin (3.5-5.0) g/dL 02/15/18 02/15/18 02/15/18 Range/Units 07:54 07:54 12:24 WBC 12.5 H (3.8-10.6) k/uL RBC 3.33 L (3.80-5.40) m/uL Hgb 8.8 L (11.4-16.0) gm/dL Hct 29.4 L (34.0-46.0) % MCHC 29.8 L (31.0-37.0) g/dL RDW 16.2 H (11.5-15.5) % Neutrophils # 9.9 H (1.3-7.7) k/uL Chloride 96 L (98-107) mmol/L Carbon Dioxide 34 H (22-30) mmol/L BUN 18 H (7-17) mg/dL Glucose 136 H (74-99) mg/dL POC Glucose (mg/dL) 193 H (75-99) mg/dL Total Protein 5.2 L (6.3-8.2) g/dL Albumin 2.8 L (3.5-5.0) g/dL Microbiology - Last 24 Hours (Table) 02/11/18 14:10 Blood Culture - Preliminary Blood No Growth after 72 hours 02/11/18 21:33 Urine Culture - Final Urine,Voided Dana glabrata Assessment and Plan Assessment: ASSESSMENT 1. Chest pain, atypical. An acute coronary event has been ruled out. 2. Chronic persistent atrial fibrillation on lobsterman anticoagulation with slow ventricular response and pause 3. History of diastolic heart failure, currently euvolemic 4. Hypertension 5. History of coronary artery disease, details unavailable 6. COPD 7. Diabetes mellitus 8. Obesity PLAN Continue with toprol 50 mg daily, eliquis 5 mg BID, diltiazem 60 mg TID, lasix 40 mg daily and losartan 100 mg daily. Stable from a cardiac perspective. Follow up with Dr. Jean in 2-3 weeks. Nurse Practitioner note has been reviewed, I agree with a documented findings and plan of care. Patient was seen and examined.
[2018-02-15 14:56] VITALS: RESP 16
--- NOTE | 2018-02-15 15:13 | P.PN ---
Subjective Progress Note Date: 02/15/18 This is a 72-year-old female, patient of Dr. Chery. She has a known past medical history of COPD, congestive heart failure, chronic atrial fibrillation, diabetes mellitus type 2, lung cancer with prior left lobectomy and hyperlipidemia. Patient was just recently discharged from [facility] on 02/03/2018 and at that time she was treated for congestive heart failure exacerbation, COPD and pneumonia. Patient reports having a bowel movement the day after discharge. However, she continued to be very weak was having some confusion. The at bedside reports that the patient was overall so weak she had difficulty getting from the bathroom to the bed. There is no actual falling or injury. But she did need assistance. Both her legs and arms were very weak. Patient felt that she was feverish at home. Also is having evidence of hypoglycemia poor oral intake and decrease in appetite. On admission she had a white count of 15.2 and evidence of a UTI and was started on Rocephin. Blood sugar on admission was 30 she was given dextrose. Acute abdominal series shows chronic changes and cardiomegaly without new suspicious acute pulmonary process. Overall nonspecific but likely nonobstructive bowel gas pattern. Fairly moderate diffuse colonic fecal stasis be demonstrated. Patient given stool softeners MiraLAX and suppository in the ER. No results yet. Patient denies any chest pain or shortness of breath denies cough. Denies any nausea or vomiting. Denies any burning with urination. Denies any weakness on one side of the body. Patient's mentation has returned to baseline. On 02/09/2018 patient is alert and oriented 3 she is complaining of abdominal discomfort, abdominal distention, and constipation for the last 5 days she is also complaining of epigastric burning sensation otherwise she denies any complaints there is no chest pain or shortness of breath no fever or chills no cough no dizziness no nausea or vomiting and no urinary symptoms 02/10/2018 patient had a large bowel movement yesterday. Her abdominal discomforts is improving. The epigastric burning sensation has resolved. Patient denies any chest pain or shortness of breath. Denies any nausea or vomiting. Denies any burning with urination. Urine culture is growing VRE white count has jumped up from 12.4-13.8. Infectious diseases been consulted and daptomycin has been added. Lipitor discontinued due to its interaction with daptomycin. Patient also having some dry nose and blood crusting in the nares. Humidity will be added to the oxygen. 02/11/2018 patient is still feeling generalized weakness and easily tired. Patient reports taking a shower and feeling tired afterwards. She had a low- grade temp of 100 last night. Also some lower blood sugar of 79 this morning. Her Levemir will be decreased to 18 units at bedtime metformin also discontinued patient has had a slight rise in creatinine is up to 1.05. White count also increased to 17.6. Patient's last bowel movement was 2 days ago. She has been refusing the lactulose. Abdominal pain is resolved. The denies any nausea or vomiting. She is passing gas. Denies any chest pain or shortness of breath did denies any urinary symptoms. 02/14/2018 patient had a low-grade temperature 100.5 yesterday evening. White count has decreased to 12.9. She remains on daptomycin for VRE in the urine. Repeat urine culture grew Dana Dana Morton. Infectious disease added Diflucan. Patient did have a bowel movement yesterday. Patient seen by cardiology in regards to chest pain. She also had evidence of cardiac causes the metoprolol was decreased from 100mg to 50mg daily. Patient is eating and drinking adequately. Creatinine has normalized at 0.92. Fluids will be hep- locked. Potassium is 5.4 and she'll receive Kayexalate. Hemoglobin has dropped to 8.4 from 8.8 possible related to fluids. Patient has not had any signs or symptoms of bleeding. And she is on iron 02/15/2018 patient sitting at bedside chair. Patient she is feeling better. She is stable for discharge to medical [place] for rehab. Still awaiting prior authorization from insurance. Patient reports having a bowel movement. She denies any chest pain or shortness of breath. Denies any nausea or vomiting. Denies any burning with urination. White count 12.5 hemoglobin 8.8. Objective - Vital Signs Vital signs: Vital Signs Temp 98.1 F 02/15/18 14:55 Pulse 93 02/15/18 14:55 Resp 16 02/15/18 14:55 BP 150/72 02/15/18 14:55 Pulse Ox 92 L 02/15/18 14:55 Intake & Output 02/14/18 02/15/18 02/15/18 18:59 06:59 18:59 Intake Total 600 Balance 600 Weight 89 kg 89 kg Intake: Oral 600 Other: Voiding Method Toilet Toilet # Voids 1 2 2 # Bowel Movements 0 1 - Exam Head normocephalic Neck supple Lungs clear to auscultation bilaterally no wheezing or crackles Heart regular rate and rhythm S1-S2, no rub or gallop Abdomen is soft nontender nondistended positive bowel sounds no hepatosplenomegaly Extremities trace to +1 edema bilaterally extremities Neuro alert and orientated to 3 - Labs CBC & Chem 7: 02/15/18 07:54 02/15/18 07:54 Labs: Abnormal Lab Results - Last 24 Hours (Table) 02/14/18 02/14/18 02/15/18 Range/Units 17:01 20:42 07:03 WBC (3.8-10.6) k/uL RBC (3.80-5.40) m/uL Hgb (11.4-16.0) gm/dL Hct (34.0-46.0) % MCHC (31.0-37.0) g/dL RDW (11.5-15.5) % Neutrophils # (1.3-7.7) k/uL Chloride (98-107) mmol/L Carbon Dioxide (22-30) mmol/L BUN (7-17) mg/dL Glucose (74-99) mg/dL POC Glucose (mg/dL) 203 H 179 H 159 H (75-99) mg/dL Total Protein (6.3-8.2) g/dL Albumin (3.5-5.0) g/dL 02/15/18 02/15/18 02/15/18 Range/Units 07:54 07:54 12:24 WBC 12.5 H (3.8-10.6) k/uL RBC 3.33 L (3.80-5.40) m/uL Hgb 8.8 L (11.4-16.0) gm/dL Hct 29.4 L (34.0-46.0) % MCHC 29.8 L (31.0-37.0) g/dL RDW 16.2 H (11.5-15.5) % Neutrophils # 9.9 H (1.3-7.7) k/uL Chloride 96 L (98-107) mmol/L Carbon Dioxide 34 H (22-30) mmol/L BUN 18 H (7-17) mg/dL Glucose 136 H (74-99) mg/dL POC Glucose (mg/dL) 193 H (75-99) mg/dL Total Protein 5.2 L (6.3-8.2) g/dL Albumin 2.8 L (3.5-5.0) g/dL Microbiology - Last 24 Hours (Table) 02/11/18 14:10 Blood Culture - Preliminary Blood No Growth after 72 hours 02/11/18 21:33 Urine Culture - Final Urine,Voided Dana glabrata Assessment and Plan Assessment: 1. Generalized weakness likely multifactorial due to deconditioning from recent hospitalization as well as UTI and hypoglycemia. Awaiting further physical therapy recommendations about home with home care versus ECF 2. Acute metabolic encephalopathy resolved likely secondary to UTI and hyperglycemia 3. UTI with possible cystitis and sepsis present on admission: Urine culture growing VRE. Repeat urine culture growing Dana glabrata. Infectious diseases discontinued the daptomycin and is recommending Diflucan for 5-7 more days 4. Accelerated hypertension present on admission: Has improved 5. Constipation with fecal stasis noted on x-ray. Patient did have a bowel movement 2 days ago. Patient seen by GI service and they're recommending Senokot 2 tablets twice a day and MiraLAX 17 g daily. Outpatient colonoscopy. Patient refusing lactulose. Also continue medical magnesium. Patient is now having bowel movements 6. Hypoglycemia with a known history of diabetes mellitus type 2. Hypoglycemia has resolved. Patient's blood sugars are stable. Continue with current regimen 7. History of chronic persistent atrial fibrillation: EKG showing A. fib heart rate controlled. Continue Eliquis for anticoagulation and metoprolol 8. History of COPD stable resume nebulizer treatments 9. Chronic diastolic congestive heart failure. No evidence of exacerbation at this time. Continue Lasix 10. History of lung cancer with prior left lobectomy 11. Recent hospitalization with bronchitis with possible pneumonia and COPD and congestive heart failure exacerbation. 12. History of iron deficiency anemia: Continue iron supplement 13. Acute renal failure resolved: Discontinue IV fluids. Continue monitoring kidney functions 14. Hyperkalemia: Discontinue Aldactone. Give Kayexalate 30 g by mouth 1. Repeat potassium level in a.m. 15. Episode of chest pain over the weekend resolved. Troponin negative. Patient seen by cardiology. They're recommending stress test outpatient 16. Cardiac pauses: Cardiology has decreased metoprolol. 100 mg daily to 50 mg daily patient had no further cardiac positive. Cardiology is cleared her for discharge. Patient is stable for discharge to [facility]. We are awaiting patient's prior authorization. Anticipate discharge tomorrow GI prophylaxis Protonix and DVT prophylaxis Mary I performed an examination of the patient and discussed their management with the physician Car Parker. I have reviewed the Physician Car Parker's notes and agree with the documented findings and plan of care
--- NOTE | 2018-02-15 16:09 | PN ---
PROGRESS NOTE DATE OF SERVICE: 02/15/2018. REASON FOR FOLLOWUP: Urinary tract infection. INTERVAL HISTORY: The patient is afebrile. She is currently breathing comfortably. Denies having any chest pain or shortness of breath abdominal pain has improved. No nausea, vomiting, diarrhea. EXAMINATION: Blood pressure 150/72 with a pulse of 93, temperature 98.1. She is 92% on 2 L nasal cannula. General description is an elderly female up in the chair in no distress. Respiratory system: Unlabored breathing. Clear to auscultation anteriorly. Heart S1, S2. Regular rate and rhythm. Abdomen soft, no tenderness. LABS: Hemoglobin 8.8, white count 12.5, BUN of 18, creatinine 0.81. DIAGNOSTIC IMPRESSION AND PLAN: Patient with a positive urine culture with VRE with repeat evidence so far showing Dana. Will discontinue daptomycin, give a short course of oral Diflucan for about 5 days. Continue supportive care. MMODL / IJN: [id number] /
[2018-02-15 17:26] LABS: Glucose,Whole Blood 158 mg/dL (75-99)
[2018-02-15] MEDS: ONDANSETRON 4 MG/2 ML VIAL IVP PRN (19:35)
[2018-02-15 20:42] LABS: Glucose,Whole Blood 201 mg/dL (75-99)
[2018-02-15] MEDS: INSULIN DETEMIR 100 UNIT/ML 10 ML VIAL SQ SCH (21:44)
[2018-02-15] MEDS: CALCIUM CARBONATE 500 MG CHEWABLE PO PRN (22:51)
[2018-02-16 06:23] VITALS: BP 140/62; TEMP 98.7
[2018-02-16 07:07] LABS: Glucose,Whole Blood 153 mg/dL (75-99)
[2018-02-16] MEDS: PANTOPRAZOLE 40 MG TABLET PO SCH (07:54)
[2018-02-16] MEDS: FERROUS SULFATE 325 MG TAB PO SCH (07:54)
[2018-02-16] MEDS: GABAPENTIN 400 MG CAP PO SCH (07:54)
[2018-02-16] MEDS: LOSARTAN 50 MG TAB PO SCH (07:54)
[2018-02-16] MEDS: APIXABAN 5 MG TAB PO SCH (07:54)
[2018-02-16] MEDS: FUROSEMIDE 40 MG TAB PO SCH (07:54)
[2018-02-16] MEDS: FLUCONAZOLE 100 MG TAB PO SCH (07:54)
[2018-02-16] MEDS: METOPROLOL SUCCINATE (ER) 50 MG TAB.ER.24H PO SCH (07:55)
[2018-02-16] MEDS: POLYETHYLENE GLYCOL 3350 17 GM POWD.PACK PO SCH (07:55)
[2018-02-16] MEDS: LORATADINE 10 MG TAB PO SCH (07:55)
[2018-02-16] MEDS: INSULIN ASPART 100 UNIT/ML 1 ML 10 ML VIAL SQ SCH ×2 (07:55→11:27)
[2018-02-16] MEDS: SENNOSIDES-DOCUSATE SODIUM 1 EACH TAB PO SCH (07:55)
[2018-02-16] MEDS: GLIMEPIRIDE 4 MG TAB PO SCH (07:55)
[2018-02-16] MEDS: DILTIAZEM ORAL 60 MG TAB PO SCH (07:55)
[2018-02-16] MEDS: MAGNESIUM HYDROXIDE 2,400 MG/10 ML CUP PO SCH (07:59)
[2018-02-16] MEDS: GLYCERIN ADULT SUPPOSITORY 1 EACH RECTAL SCH (07:59)
[2018-02-16] MEDS: IPRATROPIUM-ALBUTEROL 3 ML NEB INHALATION SCH ×2 (08:53→11:26)
[2018-02-16] MEDS: SYMBICORT 80-4.5 MCG INHALER INHALATION SCH (08:54)
[2018-02-16 08:58] LABS: Anisocytosis Slight; Basophils # (A) 0.1 k/uL (0-0.2); Basophils % (A) 0 %; Eosinophils # (A) 0.2 k/uL (0-0.7); Eosinophils % (A) 2 %; HCT 30.2 % (34.0-46.0); HGB 8.8 gm/dL (11.4-16.0); Hypochromasia Marked; Lymphocytes % (A) 15 %; MCH 26.2 pg (25.0-35.0); MCHC 29.2 g/dL (31.0-37.0); MCV 89.9 fL (80.0-100.0); Mean Platelet Volume 7.8; Monocytes # (A) 0.6 k/uL (0-1.0); Monocytes % (A) 4 %; Neutrophils # (A) 10.8 k/uL (1.3-7.7); Neutrophils % (A) 78 %; Platelet Count 293 k/uL (150-450); RBC 3.36 m/uL (3.80-5.40); RDW 16.6 % (11.5-15.5); WBC 13.8 k/uL (3.8-10.6)
[2018-02-16 09:18] LABS: Albumin 2.7 g/dL (3.5-5.0); Calcium 8.7 mg/dL (8.4-10.2); Potassium 5.5 mmol/L (3.5-5.1); Total Bilirubin 0.2 mg/dL (0.2-1.3); Total Protein 5.2 g/dL (6.3-8.2)
[2018-02-16 11:22] LABS: Glucose,Whole Blood 212 mg/dL (75-99)
[2018-02-16] MEDS: CYANOCOBALAMIN 500 MCG TAB PO SCH (11:27)
[2018-02-16] MEDS: CHOLECALCIFEROL 1,000 UNIT TAB PO SCH (11:27)
[2018-02-16 11:39] VITALS: PULSE 82
--- NOTE | 2018-02-16 13:22 | PN ---
PROGRESS NOTE DATE OF SERVICE: 02/16/2018. REASON FOR FOLLOWUP: Urinary tract infection. INTERVAL HISTORY: The patient is afebrile. She is breathing comfortably. Denies having any chest pain, shortness of breath. No cough. Abdominal pain has improved. No nausea, vomiting. No diarrhea. EXAMINATION: Blood pressure 140/62 with a pulse of 84, temperature 98.7. She is 92% on 2 L nasal cannula. General description is an elderly female up in the bed in no distress. Respiratory system: Unlabored breathing. Clear to auscultation anteriorly. Heart S1, S2 regular rate and rhythm. Abdomen soft, no tenderness. LABS: Hemoglobin 8.8, white count 13.2, BUN of 16, creatinine 0.80. DIAGNOSTIC IMPRESSION AND PLAN: Patient with VRE urinary tract infection adequately treated. Repeat urine showing a Dana glabrata. Currently short course of oral Diflucan, would avoid any nephrotoxics such as with high risk of nephrotoxicity. The patient denies significant urinary symptoms. Continue supportive care. MMODL / IJN: [id number] /
--- NOTE | 2018-02-16 13:35 | P.DS ---
Providers Date of admission: 02/07/18 17:27 Expected date of discharge: 02/16/18 Attending physician: Ramonita Sorenson Consults: 02/10/18 08:49 Consult Physician Routine Consulting Provider: Gisela Rosales Consult Reason/Comments: UTI VRE Do you want consulting provider notified?: Yes 02/11/18 17:34 Consult Physician Routine Consulting Provider: Pablo Veliz Consult Reason/Comments: chest pain Do you want consulting provider notified?: Yes Primary care physician: Mariaa Chery Hospital Course: Diagnoses on discharge: 1. Generalized weakness likely multifactorial due to deconditioning from recent hospitalization as well as UTI and hypoglycemia. Awaiting further physical therapy recommendations about home with home care versus ECF 2. Acute metabolic encephalopathy resolved likely secondary to UTI and hyperglycemia 3. UTI with possible cystitis and sepsis present on admission: Urine culture growing VRE. Repeat urine culture growing Dana glabrata. Infectious diseases discontinued the daptomycin and is recommending Diflucan for 5-7 more days 4. Accelerated hypertension present on admission: Has improved 5. Constipation with fecal stasis noted on x-ray. Patient did have a bowel movement 2 days ago. Patient seen by GI service and they're recommending Senokot 2 tablets twice a day and MiraLAX 17 g daily. Outpatient colonoscopy. Patient refusing lactulose. Also continue medical magnesium. Patient is now having bowel movements 6. Hypoglycemia with a known history of diabetes mellitus type 2. Hypoglycemia has resolved. Patient's blood sugars are stable. Continue with current regimen 7. History of chronic persistent atrial fibrillation: EKG showing A. fib heart rate controlled. Continue Eliquis for anticoagulation and metoprolol 8. History of COPD stable resume nebulizer treatments 9. Chronic diastolic congestive heart failure. No evidence of exacerbation at this time. Continue Lasix 10. History of lung cancer with prior left lobectomy. Patient needs close follow up with pulmonary to rule out recurrent lung cancer. 11. Recent hospitalization with bronchitis with possible pneumonia and COPD and congestive heart failure exacerbation. 12. History of iron deficiency anemia: Continue iron supplement 13. Acute renal failure resolved: Discontinue IV fluids. Continue monitoring kidney functions 14. Hyperkalemia: Discontinue Aldactone. Give Kayexalate 30 g by mouth 1. Repeat potassium level in a.m. 15. Episode of chest pain over the weekend resolved. Troponin negative. Patient seen by cardiology. They're recommending stress test outpatient 16. Cardiac pauses: Cardiology has decreased metoprolol. 100 mg daily to 50 mg daily patient had no further cardiac positive. Cardiology is cleared her for discharge. Patient is stable for discharge to [facility]. We are awaiting patient's prior authorization. Anticipate discharge tomorrow Hospital course: This is a 72-year-old female, patient of Dr. Chery. She has a known past medical history of COPD, congestive heart failure, chronic atrial fibrillation, diabetes mellitus type 2, lung cancer with prior left lobectomy and hyperlipidemia. Patient was just recently discharged from [facility] on 02/03/2018 and at that time she was treated for congestive heart failure exacerbation, COPD and pneumonia. Patient reports having a bowel movement the day after discharge. However, she continued to be very weak was having some confusion. The at bedside reports that the patient was overall so weak she had difficulty getting from the bathroom to the bed. There is no actual falling or injury. But she did need assistance. Both her legs and arms were very weak. Patient felt that she was feverish at home. Also is having evidence of hypoglycemia poor oral intake and decrease in appetite. On admission she had a white count of 15.2 and evidence of a UTI and was started on Rocephin. Blood sugar on admission was 30 she was given dextrose. Acute abdominal series shows chronic changes and cardiomegaly without new suspicious acute pulmonary process. Overall nonspecific but likely nonobstructive bowel gas pattern. Fairly moderate diffuse colonic fecal stasis be demonstrated. Patient given stool softeners MiraLAX and suppository in the ER. No results yet. Patient denies any chest pain or shortness of breath denies cough. Denies any nausea or vomiting. Denies any burning with urination. Denies any weakness on one side of the body. Patient's mentation has returned to baseline. On 02/09/2018 patient is alert and oriented 3 she is complaining of abdominal discomfort, abdominal distention, and constipation for the last 5 days she is also complaining of epigastric burning sensation otherwise she denies any complaints there is no chest pain or shortness of breath no fever or chills no cough no dizziness no nausea or vomiting and no urinary symptoms 02/10/2018 patient had a large bowel movement yesterday. Her abdominal discomforts is improving. The epigastric burning sensation has resolved. Patient denies any chest pain or shortness of breath. Denies any nausea or vomiting. Denies any burning with urination. Urine culture is growing VRE white count has jumped up from 12.4-13.8. Infectious diseases been consulted and daptomycin has been added. Lipitor discontinued due to its interaction with daptomycin. Patient also having some dry nose and blood crusting in the nares. Humidity will be added to the oxygen. 02/11/2018 patient is still feeling generalized weakness and easily tired. Patient reports taking a shower and feeling tired afterwards. She had a low- grade temp of 100 last night. Also some lower blood sugar of 79 this morning. Her Levemir will be decreased to 18 units at bedtime metformin also discontinued patient has had a slight rise in creatinine is up to 1.05. White count also increased to 17.6. Patient's last bowel movement was 2 days ago. She has been refusing the lactulose. Abdominal pain is resolved. The denies any nausea or vomiting. She is passing gas. Denies any chest pain or shortness of breath did denies any urinary symptoms. 02/14/2018 patient had a low-grade temperature 100.5 yesterday evening. White count has decreased to 12.9. She remains on daptomycin for VRE in the urine. Repeat urine culture grew Dana Danakaur Morton. Infectious disease added Diflucan. Patient did have a bowel movement yesterday. Patient seen by cardiology in regards to chest pain. She also had evidence of cardiac causes the metoprolol was decreased from 100mg to 50mg daily. Patient is eating and drinking adequately. Creatinine has normalized at 0.92. Fluids will be hep- locked. Potassium is 5.4 and she'll receive Kayexalate. Hemoglobin has dropped to 8.4 from 8.8 possible related to fluids. Patient has not had any signs or symptoms of bleeding. And she is on iron 02/15/2018 patient sitting at bedside chair. Patient she is feeling better. She is stable for discharge to medical [place] for rehab. Still awaiting prior authorization from insurance. Patient reports having a bowel movement. She denies any chest pain or shortness of breath. Denies any nausea or vomiting. Denies any burning with urination. White count 12.5 hemoglobin 8.8. On 02/16/2018 patient is alert and oriented 3 state that she is feeling better , prior authorization for discharge to rehab obtained. White blood count has went up since yesterday from 12.5 to 13.8. Case was discussed was Dr. Rosales infectious disease and patient was cleared for discharge she will be continued on Diflucan 200 mg daily for 7 more days, no other antibiotic needed per infectious disease. She will be followed by Dr. Rosales as outpatient within 1 week. Patient also need to be followed closely by pulmonary, Dr. Bowamn due to history of lung cancer and suspicion for recurrence. Patient Condition at Discharge: Fair Plan - Discharge Summary Discharge Rx Participant: Yes New Discharge Prescriptions: New Metoprolol Succinate (ER) [Toprol XL] 50 mg PO DAILY #30 tab.er.24h Acetaminophen Tab [Tylenol] 1,000 mg PO Q6HR PRN tab PRN Reason: Fever and/ or Mild Pain Fluconazole [Diflucan] 200 mg PO DAILY #7 tab Furosemide [Lasix] 40 mg PO DAILY tab Glycerin Adult Suppository 1 each RECTAL DAILY supp Insulin Aspart [NovoLOG (formulary)] 0 unit SQ ACHS vial Insulin Detemir [Levemir] 18 unit SQ HS syr Magnesium Hydroxide [Milk of Magnesia Concentrate] 2,400 mg PO DAILY ml Sennosides-Docusate Sodium [Senokot-S] 2 each PO BID tab Continue Cyanocobalamin [Vitamin B-12] 500 mcg PO DAILY Cholecalciferol [Vitamin D3] 4,000 unit PO DAILY Atorvastatin [Lipitor] 40 mg PO HS Glimepiride [Amaryl] 4 mg PO AC-BID Loratadine [Claritin] 10 mg PO DAILY Albuterol Inhaler [Ventolin Hfa Inhaler] 2 puff INHALATION RT-BID Apixaban [Eliquis] 5 mg PO BID #60 tab Losartan [Cozaar] 100 mg PO DAILY #30 tab Pantoprazole Sodium [Protonix] 40 mg PO BID #60 tablet. Diltiazem Oral [Cardizem*] 60 mg PO TID tab Docusate [Colace] 100 mg PO DAILY cap Ferrous Sulfate [Iron (65 MG Elemental)] 325 mg PO BID tab Ipratropium-Albuterol Nebulize [Duoneb 0.5 mg-3 mg/3 ml Soln] 3 ml INHALATION RT-QID ampul.neb Polyethylene Glycol 3350 [Miralax] 17 gm PO DAILY #30 packet Gabapentin [Neurontin] 800 mg PO TID Discontinued Insulin Aspart [NovoLOG Flexpen] 20 units SQ AC-TID Insulin Degludec [Tresiba Flextouch U-200] 98 unit SQ DAILY Fluticasone/Salmeterol [Advair 250-50 Diskus] 1 puff INHALATION RT-BID metFORMIN HCL [Glucophage] 500 mg PO BID Spironolactone [Aldactone] 25 mg PO DAILY #30 tab Furosemide [Lasix] 40 mg PO BID Acetaminophen Tab [Tylenol] 1,000 mg PO Q6HR PRN tab PRN Reason: Fever And/ Or Pain Metoprolol Succinate (ER) [Toprol XL] 100 mg PO DAILY tab.er.24h Cefuroxime Axetil [Ceftin] 500 mg PO BID #14 tab Discharge Medication List Atorvastatin [Lipitor] 40 mg PO HS 11/17/16 [History] Cholecalciferol [Vitamin D3] 4,000 unit PO DAILY 11/17/16 [History] Cyanocobalamin [Vitamin B-12] 500 mcg PO DAILY 11/17/16 [History] Glimepiride [Amaryl] 4 mg PO AC-BID 11/17/16 [History] Albuterol Inhaler [Ventolin Hfa Inhaler] 2 puff INHALATION RT-BID 07/22/17 [ History] Loratadine [Claritin] 10 mg PO DAILY 07/22/17 [History] Apixaban [Eliquis] 5 mg PO BID #60 tab 08/02/17 [Rx] Losartan [Cozaar] 100 mg PO DAILY #30 tab 08/02/17 [Rx] Pantoprazole Sodium [Protonix] 40 mg PO BID #60 tablet. 01/05/18 [Rx] Diltiazem Oral [Cardizem*] 60 mg PO TID tab 02/01/18 [Rx] Docusate [Colace] 100 mg PO DAILY cap 02/01/18 [Rx] Ferrous Sulfate [Iron (65 MG Elemental)] 325 mg PO BID tab 02/01/18 [Rx] Ipratropium-Albuterol Nebulize [Duoneb 0.5 mg-3 mg/3 ml Soln] 3 ml INHALATION RT -QID ampul.neb 02/01/18 [Rx] Polyethylene Glycol 3350 [Miralax] 17 gm PO DAILY #30 packet 02/03/18 [Rx] Gabapentin [Neurontin] 800 mg PO TID 02/07/18 [History] Metoprolol Succinate (ER) [Toprol XL] 50 mg PO DAILY #30 tab.er.24h 02/15/18 [Rx ] Acetaminophen Tab [Tylenol] 1,000 mg PO Q6HR PRN tab 02/16/18 [Rx] Fluconazole [Diflucan] 200 mg PO DAILY #7 tab 02/16/18 [Rx] Furosemide [Lasix] 40 mg PO DAILY tab 02/16/18 [Rx] Glycerin Adult Suppository 1 each RECTAL DAILY supp 02/16/18 [Rx] Insulin Aspart [NovoLOG (formulary)] 0 unit SQ ACHS vial 02/16/18 [Rx] Insulin Detemir [Levemir] 18 unit SQ HS syr 02/16/18 [Rx] Magnesium Hydroxide [Milk of Magnesia Concentrate] 2,400 mg PO DAILY ml [Rx] Sennosides-Docusate Sodium [Senokot-S] 2 each PO BID tab 02/16/18 [Rx] Follow up Appointment(s)/Referral(s): Mariaa Chery DO [Primary Care Provider] - 1 Week Kelley Nash PAC [REFERRING] - 03/03/18 10:30 am Rodriguez Jean MD [STAFF PHYSICIAN] - 2 Weeks Patient Instructions/Handouts: Urinary Tract Infection in Women (DC), Vancomycin Resistant Enterococcus (DC)
[2018-02-17] MEDS ORDERED: FLUCONAZOLE 100 MG TAB PO SCH (09:00)
== END 2018-02-16 14:37 | DRG 871 ==
LOC: EC 15:56 → 6SEL 17:27 → 5MS5E 02-08 09:37 → 4MS4W 02-10 05:32
PROVIDERS: ADMIT Internal Medicine; ATTEND Internal Medicine
DX: A41.81 Sepsis due to Enterococcus (principal); G93.41 Metabolic encephalopathy; I50.32 Chronic diastolic (congestive) heart failure; J96.11 Chronic respiratory failure with hypoxia; N17.9 Acute kidney failure, unspecified; B37.41 Candidal cystitis and urethritis; E11.649 Type 2 diabetes mellitus with hypoglycemia without coma; E11.65 Type 2 diabetes mellitus with hyperglycemia; E66.9 Obesity, unspecified; E78.5 Hyperlipidemia, unspecified; E87.5 Hyperkalemia; F40.240 Claustrophobia; I11.0 Hypertensive heart disease with heart failure; I25.10 Atherosclerotic heart disease of native coronary artery without angina pectoris; I49.8 Other specified cardiac arrhythmias; I48.2 Chronic atrial fibrillation; J44.9 Chronic obstructive pulmonary disease, unspecified; K21.9 Gastro-esophageal reflux disease without esophagitis; Z83.3 Family history of diabetes mellitus; K59.00 Constipation, unspecified; N30.90 Cystitis, unspecified without hematuria; D50.9 Iron deficiency anemia, unspecified; E86.0 Dehydration; R07.89 Other chest pain; Z16.21 Resistance to vancomycin; Z99.81 Dependence on supplemental oxygen; Z95.5 Presence of coronary angioplasty implant and graft; Z87.891 Personal history of nicotine dependence; Z86.61 Personal history of infections of the central nervous system; Z85.118 Personal history of other malignant neoplasm of bronchus and lung; Z79.01 Long term (current) use of anticoagulants; Z79.4 Long term (current) use of insulin; Z79.899 Other long term (current) drug therapy; Z88.5 Allergy status to narcotic agent; Z90.2 Acquired absence of lung [part of]; Z68.33 Body mass index [BMI] 33.0-33.9, adult
CPT/HCPCS: 36415; 71046; 74022; 80053; 81001; 82550; 82553; 83605; 83735; 84100; 84443; 84484; 85025; 85610; 85730; 87040; 87077; 87086; 87186; 93005; 94640; 94760; 96361; 96374; 96375; 96376; 99285

== ENCOUNTER 2018-03-21 19:41 | Inpatient (IN) | payer MEDICARE ==
[2018-03-21] MEDS ORDERED: PANTOPRAZOLE 40 MG/10 ML VIAL IVP STA (20:00)
[2018-03-21] MEDS ORDERED: ONDANSETRON 4 MG/2 ML VIAL IVP STA ×2 (20:00→21:50)
[2018-03-21] MEDS ORDERED: SODIUM CHLORIDE 0.9% 500 ML IV STA (20:00)
--- NOTE | 2018-03-21 20:04 | ED ---
General Adult HPI - General Source: EMS, RN notes reviewed Mode of arrival: EMS Limitations: no limitations <Misbah Curtis - Last Filed: 03/21/18 21:08> <Richard Jimenez - Last Filed: 03/25/18 06:49> - General Chief complaint: Nausea/Vomiting/Diarrhea Stated complaint: NVD Time Seen by Provider: 03/21/18 19:45 - History of Present Illness Initial comments: This is a 72-year-old female patient comes in for nausea vomiting and diarrhea. Patient states he started later this afternoon. Patient denies any fever chills. Patient denies any blood in the vomitus or diarrhea. Patient denies any abdominal pain. Patient denies any chest pain palpitations difficulty breathing. Patient denies any headache patient denies numbness weakness. Patient states her stomach is been burning but that is been ongoing since December 11 in today is no different. Patient denies any shortness of breath. Patient denies any cough. (Misbah Curtis) - Related Data Home Medications Medication Instructions Recorded Confirmed Atorvastatin [Lipitor] 40 mg PO HS 11/17/16 03/22/18 Cholecalciferol [Vitamin D3] 4,000 unit PO HS 11/17/16 03/22/18 Cyanocobalamin [Vitamin B-12] 500 mcg PO DAILY 11/17/16 03/22/18 Glimepiride [Amaryl] 4 mg PO AC-BID 11/17/16 03/22/18 Albuterol Inhaler [Ventolin Hfa 2 puff INHALATION RT-BID 07/22/17 03/22/18 Inhaler] Loratadine [Claritin] 10 mg PO DAILY 07/22/17 03/22/18 Gabapentin [Neurontin] 800 mg PO Q8H 02/07/18 03/22/18 Acetaminophen Tab [Tylenol] 500 mg PO Q6HR PRN 03/21/18 03/22/18 Diltiazem Oral [Cardizem*] 60 mg PO Q8H 03/21/18 03/22/18 Docusate [Colace] 100 mg PO HS 03/21/18 03/22/18 Glycerin Adult Suppository 1 supp RECTAL DAILY 03/21/18 03/22/18 Insulin Aspart [NovoLOG 3 unit SQ ACHS 03/21/18 03/22/18 (formulary)] Losartan Potassium [Cozaar] 100 mg PO DAILY 03/21/18 03/22/18 Magnesium Hydroxide [Milk of 2,400 mg PO DAILY PRN 03/21/18 03/22/18 Magnesia Concentrate] Sennosides-Docusate Sodium 2 tab PO BID 03/21/18 03/22/18 [Senokot-S] Previous Rx's Medication Instructions Recorded Apixaban [Eliquis] 5 mg PO BID #60 tab 08/02/17 Pantoprazole Sodium [Protonix] 40 mg PO BID #60 tablet.dr 01/05/18 Ferrous Sulfate [Iron (65 MG 325 mg PO BID tab 02/01/18 Elemental)] Ipratropium-Albuterol Nebulize 3 ml INHALATION RT-QID ampul.neb 02/01/18 [Duoneb 0.5 mg-3 mg/3 ml Soln] Polyethylene Glycol 3350 [Miralax] 17 gm PO DAILY #30 packet 02/03/18 Metoprolol Succinate (ER) [Toprol 50 mg PO DAILY #30 tab.er.24h 02/15/18 XL] Furosemide [Lasix] 40 mg PO DAILY tab 02/16/18 Insulin Detemir [Levemir] 18 unit SQ HS syr 02/16/18 Allergies Allergy/AdvReac Type Severity Reaction Status Date / Time codeine Allergy Unknown Verified 03/22/18 01:21 Review of Systems ROS Other: All systems not noted in ROS Statement are negative. <Misbah Curtis - Last Filed: 03/21/18 21:08> ROS Other: All systems not noted in ROS Statement are negative. <Richard Jimenez - Last Filed: 03/25/18 06:49> ROS Statement: Those systems with pertinent positive or pertinent negative responses have been documented in the HPI. Past Medical History Past Medical History: Atrial Fibrillation, Coronary Artery Disease (CAD), Heart Failure, COPD, Diabetes Mellitus, GERD/Reflux, Hyperlipidemia, Hypertension, Memory Impairment Additional Past Medical History / Comment(s): COPD severe with an FEV1 of 36%, chronic hypoxic respiratory failure, non-small cell lung cancer with a previous left lower lobe resection, chronic atrial fibrillation, hypertension, coronary artery disease, diabetes mellitus, meningitis back in the 70s History of Any Multi-Drug Resistant Organisms: VRE Date of last positivie culture/infection: 02/07/18 MDRO Source:: VRE URINE Past Surgical History: Heart Catheterization With Stent, Tubal Ligation Additional Past Surgical History / Comment(s): Left lower lobe lung removed, right shoulder rotator cuff.egd w/ bx Past Anesthesia/Blood Transfusion Reactions: No Reported Reaction Additional Past Anesthesia/Blood Transfusion Reaction / Comment(s): Claustrophobia. past blood transfusion-no reaction Date of Last Stent Placement:: unk Past Psychological History: No Psychological Hx Reported Smoking Status: Former smoker Past Alcohol Use History: None Reported Past Drug Use History: None Reported - Past Family History Mother History Unknown: Yes Family Medical History: No Reported History Father Family Medical History: Diabetes Mellitus <Misbah Curtis - Last Filed: 03/21/18 21:08> General Exam Limitations: no limitations <Misbah Curtis - Last Filed: 03/21/18 21:08> <Richard Jimenez - Last Filed: 03/25/18 06:49> - General Exam Comments Initial Comments: GENERAL: Patient is well-developed and well-nourished. Patient is nontoxic and well- hydrated and is in mild distress. ENT: Neck is soft and supple. No significant lymphadenopathy is noted. Oropharynx is clear. Moist mucous membranes. Neck has full range of motion without eliciting any pain. EYES: The sclera were anicteric and conjunctiva were pink and moist. Extraocular movements were intact and pupils were equal round and reactive to light. Eyelids were unremarkable. PULMONARY: Unlabored respirations. Good breath sounds bilaterally. No audible rales rhonchi or wheezing was noted. CARDIOVASCULAR: There is a regular rate and rhythm without any murmurs gallops or rubs. ABDOMEN: Soft and nontender with normal bowel sounds. No palpable organomegaly was noted. There is no palpable pulsatile mass. SKIN: Skin is clear with no lesions or rashes and otherwise unremarkable. NEUROLOGIC: Patient is alert and oriented x3. Cranial nerves II through XII are grossly intact. Motor and sensory are also intact. Normal speech, volume and content. Symmetrical smile. MUSCULOSKELETAL: Normal extremities with adequate strength and full range of motion. LYMPHATICS: No significant lymphadenopathy is noted PSYCHIATRIC: Normal psychiatric evaluation. Normal interpersonal interactions appears functionally intact in deals appropriately with others. No signs of depression. No signs of anxiety. (Misbah Curtis) Vital Signs 03/21/18 03/21/18 03/21/18 19:42 21:53 23:05 Temperature 98.3 F 98 F Pulse Rate 96 101 H 79 Respiratory 18 18 20 Rate Blood Pressure 146/67 180/82 142/65 O2 Sat by Pulse 96 96 97 Oximetry 03/21/18 03/22/18 23:55 00:56 Temperature 98.6 F Pulse Rate 91 98 Respiratory 18 18 Rate Blood Pressure 160/70 165/72 O2 Sat by Pulse 97 96 Oximetry Medical Decision Making <Misbah Curtis - Last Filed: 03/21/18 21:08> - Lab Data Result diagrams: 03/24/18 04:51 03/24/18 04:51 <Richard Jimenez - Last Filed: 03/25/18 06:49> - Medical Decision Making EKG shows a atrial fibrillation at 100 bpm QRS is under 16 QT interval 352 QTC is 454. EKG shows some ST segment depression in II, III, and F aVF as well as some T-wave inversions in precordial leads The care of this patient will be taking over by Dr. Emanuel (Misbah Curtis) I receive this patient has a sign out pending the results of her studies, with the understanding that she should be admitted given the EKG changes. Discussed the case with Dr. Sorenson, who will admit, and requests cardiology consultation. Given the patient's recent long-term stay and the diarrhea, the C. difficile studies are added and pending at time of admission. (Richard Jimenez) - Lab Data Lab Results 03/21/18 03/21/18 03/21/18 Range/Units 20:04 20:04 20:07 WBC 23.8 H (3.8-10.6) k/uL RBC 4.92 (3.80-5.40) m/uL Hgb 12.5 D (11.4-16.0) gm/dL Hct 41.6 (34.0-46.0) % MCV 84.5 D (80.0-100.0) fL MCH 25.4 (25.0-35.0) pg MCHC 30.0 L (31.0-37.0) g/dL RDW 16.6 H (11.5-15.5) % Plt Count 501 H (150-450) k/uL Neutrophils % 84 % Lymphocytes % 12 % Monocytes % 3 % Eosinophils % 0 % Basophils % 0 % Neutrophils # 20.1 H (1.3-7.7) k/uL Lymphocytes # 2.8 (1.0-4.8) k/uL Monocytes # 0.7 (0-1.0) k/uL Eosinophils # 0.0 (0-0.7) k/uL Basophils # 0.0 (0-0.2) k/uL Hypochromasia Marked Anisocytosis Slight Sodium 136 L (137-145) mmol/L Potassium 3.5 (3.5-5.1) mmol/L Chloride 92 L (98-107) mmol/L Carbon Dioxide 28 (22-30) mmol/L Anion Gap 16 mmol/L BUN 17 (7-17) mg/dL Creatinine 0.90 (0.52-1.04) mg/dL Est GFR (CKD-EPI)AfAm 74 (>60 ml/min/1.73 sqM) Est GFR (CKD-EPI)NonAf 64 (>60 ml/min/1.73 sqM) Glucose 171 H (74-99) mg/dL POC Glucose (mg/dL) (75-99) mg/dL POC Glu Outpatient Admitting Clerk ID Estimated Ave Glu mg/dL Hemoglobin A1c (4.0-6.0) % Calcium 8.2 L (8.4-10.2) mg/dL Total Bilirubin 0.2 (0.2-1.3) mg/dL AST 34 (14-36) U/L ALT 30 (9-52) U/L Alkaline Phosphatase 106 (38-126) U/L Total Creatine Kinase 29 L (30-135) U/L CK-MB (CK-2) 0.5 (0.0-2.4) ng/mL CK-MB (CK-2) Rel Index 1.7 Troponin I <0.012 (0.000-0.034) ng/mL Total Protein 6.2 L (6.3-8.2) g/dL Albumin 3.3 L (3.5-5.0) g/dL Triglycerides (<150) mg/dL Cholesterol (<200) mg/dL LDL Cholesterol, Calc (0-99) mg/dL HDL Cholesterol (40-60) mg/dL Amylase 58 (30-110) U/L Lipase 86 (23-300) U/L Urine Color Urine Appearance (Clear) Urine pH (5.0-8.0) Ur Specific [place] (1.001-1.035) Urine Protein (Negative) Urine Glucose (UA) (Negative) Urine Ketones (Negative) Urine Blood (Negative) Urine Nitrite (Negative) Urine Bilirubin (Negative) Urine Urobilinogen (<2.0) mg/dL Ur Leukocyte Esterase (Negative) Urine RBC (0-5) /hpf Urine WBC (0-5) /hpf Urine WBC Clumps (None) /hpf Ur Squamous Epith Cells (0-4) /hpf Urine Bacteria (None) /hpf Hyaline Casts (0-2) /lpf Urine Mucus (None) /hpf C. difficile (EIA) Intrp (Negative) 03/22/18 03/22/18 03/22/18 Range/Units 01:44 01:44 06:39 WBC (3.8-10.6) k/uL RBC (3.80-5.40) m/uL Hgb (11.4-16.0) gm/dL Hct (34.0-46.0) % MCV (80.0-100.0) fL MCH (25.0-35.0) pg MCHC (31.0-37.0) g/dL RDW (11.5-15.5) % Plt Count (150-450) k/uL Neutrophils % % Lymphocytes % % Monocytes % % Eosinophils % % Basophils % % Neutrophils # (1.3-7.7) k/uL Lymphocytes # (1.0-4.8) k/uL Monocytes # (0-1.0) k/uL Eosinophils # (0-0.7) k/uL Basophils # (0-0.2) k/uL Hypochromasia Anisocytosis Sodium (137-145) mmol/L Potassium (3.5-5.1) mmol/L Chloride (98-107) mmol/L Carbon Dioxide (22-30) mmol/L Anion Gap mmol/L BUN (7-17) mg/dL Creatinine (0.52-1.04) mg/dL Est GFR (CKD-EPI)AfAm (>60 ml/min/1.73 sqM) Est GFR (CKD-EPI)NonAf (>60 ml/min/1.73 sqM) Glucose (74-99) mg/dL POC Glucose (mg/dL) 131 H (75-99) mg/dL POC Glu Outpatient Admitting Clerk ID Francisca Cano Estimated Ave Glu mg/dL Hemoglobin A1c (4.0-6.0) % Calcium (8.4-10.2) mg/dL Total Bilirubin (0.2-1.3) mg/dL AST (14-36) U/L ALT (9-52) U/L Alkaline Phosphatase (38-126) U/L Total Creatine Kinase 26 L (30-135) U/L CK-MB (CK-2) 0.6 (0.0-2.4) ng/mL CK-MB (CK-2) Rel Index 2.3 Troponin I 0.015 (0.000-0.034) ng/mL Total Protein (6.3-8.2) g/dL Albumin (3.5-5.0) g/dL Triglycerides 89 (<150) mg/dL Cholesterol 99 (<200) mg/dL LDL Cholesterol, Calc 48 (0-99) mg/dL HDL Cholesterol 33 L (40-60) mg/dL Amylase (30-110) U/L Lipase (23-300) U/L Urine Color Urine Appearance (Clear) Urine pH (5.0-8.0) Ur Specific [place] (1.001-1.035) Urine Protein (Negative) Urine Glucose (UA) (Negative) Urine Ketones (Negative) Urine Blood (Negative) Urine Nitrite (Negative) Urine Bilirubin (Negative) Urine Urobilinogen (<2.0) mg/dL Ur Leukocyte Esterase (Negative) Urine RBC (0-5) /hpf Urine WBC (0-5) /hpf Urine WBC Clumps (None) /hpf Ur Squamous Epith Cells (0-4) /hpf Urine Bacteria (None) /hpf Hyaline Casts (0-2) /lpf Urine Mucus (None) /hpf C. difficile (EIA) Intrp (Negative) 03/22/18 03/22/18 03/22/18 Range/Units 07:38 08:28 08:28 WBC (3.8-10.6) k/uL RBC (3.80-5.40) m/uL Hgb (11.4-16.0) gm/dL Hct (34.0-46.0) % MCV (80.0-100.0) fL MCH (25.0-35.0) pg MCHC (31.0-37.0) g/dL RDW (11.5-15.5) % Plt Count (150-450) k/uL Neutrophils % % Lymphocytes % % Monocytes % % Eosinophils % % Basophils % % Neutrophils # (1.3-7.7) k/uL Lymphocytes # (1.0-4.8) k/uL Monocytes # (0-1.0) k/uL Eosinophils # (0-0.7) k/uL Basophils # (0-0.2) k/uL Hypochromasia Anisocytosis Sodium (137-145) mmol/L Potassium (3.5-5.1) mmol/L Chloride (98-107) mmol/L Carbon Dioxide (22-30) mmol/L Anion Gap mmol/L BUN (7-17) mg/dL Creatinine (0.52-1.04) mg/dL Est GFR (CKD-EPI)AfAm (>60 ml/min/1.73 sqM) Est GFR (CKD-EPI)NonAf (>60 ml/min/1.73 sqM) Glucose (74-99) mg/dL POC Glucose (mg/dL) (75-99) mg/dL POC Glu Outpatient Admitting Clerk ID Estimated Ave Glu mg/dL 128 Hemoglobin A1c 6.1 H (4.0-6.0) % Calcium (8.4-10.2) mg/dL Total Bilirubin (0.2-1.3) mg/dL AST (14-36) U/L ALT (9-52) U/L Alkaline Phosphatase (38-126) U/L Total Creatine Kinase 28 L (30-135) U/L CK-MB (CK-2) 0.5 (0.0-2.4) ng/mL CK-MB (CK-2) Rel Index 1.8 Troponin I 0.020 (0.000-0.034) ng/mL Total Protein (6.3-8.2) g/dL Albumin (3.5-5.0) g/dL Triglycerides (<150) mg/dL Cholesterol (<200) mg/dL LDL Cholesterol, Calc (0-99) mg/dL HDL Cholesterol (40-60) mg/dL Amylase (30-110) U/L Lipase (23-300) U/L Urine Color Urine Appearance (Clear) Urine pH (5.0-8.0) Ur Specific [place] (1.001-1.035) Urine Protein (Negative) Urine Glucose (UA) (Negative) Urine Ketones (Negative) Urine Blood (Negative) Urine Nitrite (Negative) Urine Bilirubin (Negative) Urine Urobilinogen (<2.0) mg/dL Ur Leukocyte Esterase (Negative) Urine RBC (0-5) /hpf Urine WBC (0-5) /hpf Urine WBC Clumps (None) /hpf Ur Squamous Epith Cells (0-4) /hpf Urine Bacteria (None) /hpf Hyaline Casts (0-2) /lpf Urine Mucus (None) /hpf C. difficile (EIA) Intrp Negative (Negative) 03/22/18 03/22/18 Range/Units 11:22 12:05 WBC (3.8-10.6) k/uL RBC (3.80-5.40) m/uL Hgb (11.4-16.0) gm/dL Hct (34.0-46.0) % MCV (80.0-100.0) fL MCH (25.0-35.0) pg MCHC (31.0-37.0) g/dL RDW (11.5-15.5) % Plt Count (150-450) k/uL Neutrophils % % Lymphocytes % % Monocytes % % Eosinophils % % Basophils % % Neutrophils # (1.3-7.7) k/uL Lymphocytes # (1.0-4.8) k/uL Monocytes # (0-1.0) k/uL Eosinophils # (0-0.7) k/uL Basophils # (0-0.2) k/uL Hypochromasia Anisocytosis Sodium (137-145) mmol/L Potassium (3.5-5.1) mmol/L Chloride (98-107) mmol/L Carbon Dioxide (22-30) mmol/L Anion Gap mmol/L BUN (7-17) mg/dL Creatinine (0.52-1.04) mg/dL Est GFR (CKD-EPI)AfAm (>60 ml/min/1.73 sqM) Est GFR (CKD-EPI)NonAf (>60 ml/min/1.73 sqM) Glucose (74-99) mg/dL POC Glucose (mg/dL) 168 H (75-99) mg/dL POC Glu Outpatient Admitting Clerk ID Francisca Cano Ave Glu mg/dL Hemoglobin A1c (4.0-6.0) % Calcium (8.4-10.2) mg/dL Total Bilirubin (0.2-1.3) mg/dL AST (14-36) U/L ALT (9-52) U/L Alkaline Phosphatase (38-126) U/L Total Creatine Kinase (30-135) U/L CK-MB (CK-2) (0.0-2.4) ng/mL CK-MB (CK-2) Rel Index Troponin I (0.000-0.034) ng/mL Total Protein (6.3-8.2) g/dL Albumin (3.5-5.0) g/dL Triglycerides (<150) mg/dL Cholesterol (<200) mg/dL LDL Cholesterol, Calc (0-99) mg/dL HDL Cholesterol (40-60) mg/dL Amylase (30-110) U/L Lipase (23-300) U/L Urine Color Light Red Urine Appearance Turbid H (Clear) Urine pH 5.5 (5.0-8.0) Ur Specific [place] 1.015 (1.001-1.035) Urine Protein 2+ H (Negative) Urine Glucose (UA) Negative (Negative) Urine Ketones Negative (Negative) Urine Blood Trace H (Negative) Urine Nitrite Negative (Negative) Urine Bilirubin Negative (Negative) Urine Urobilinogen <2.0 (<2.0) mg/dL Ur Leukocyte Esterase Large H (Negative) Urine RBC 43 H (0-5) /hpf Urine WBC >182 H (0-5) /hpf Urine WBC Clumps Many H (None) /hpf Ur Squamous Epith Cells 119 H (0-4) /hpf Urine Bacteria Many H (None) /hpf Hyaline Casts 289 H (0-2) /lpf Urine Mucus Many H (None) /hpf C. difficile (EIA) Intrp (Negative) Disposition <Misbah Curtis - Last Filed: 03/21/18 21:08> <Richard Jimenez - Last Filed: 03/25/18 06:49> Clinical Impression: Epigastric abdominal pain, Diarrhea Disposition: ADMITTED IP TO THIS HOSP Condition: Fair
--- NOTE | 2018-03-21 20:31 | XR ---
EXAMINATION TYPE: XR KUB DATE OF EXAM: 03/21/2018 COMPARISON: 02/07/2018 HISTORY: Abdominal pain TECHNIQUE: 2 views FINDINGS: There is some diaphragmatic pleural calcification at the left lung base. There is no sign o f intestinal obstruction or pneumoperitoneum. Abdominal aorta is atheromatous. There are no pathologi c calcifications over the kidneys. IMPRESSION: Nonacute abdomen. Pleural scarring at the left lung base. No significant change compared to old exam. Stomach is smaller than old exam.
[2018-03-21 20:58] LABS: Anisocytosis Slight; Basophils % (A) 0 %; Eosinophils % (A) 0 %; HCT 41.6 % (34.0-46.0); Hypochromasia Marked; Lymphocytes # (A) 2.8 k/uL (1.0-4.8); Lymphocytes % (A) 12 %; MCH 25.4 pg (25.0-35.0); Mean Platelet Volume 8.2; Monocytes # (A) 0.7 k/uL (0-1.0); Monocytes % (A) 3 %; Neutrophils # (A) 20.1 k/uL (1.3-7.7); Neutrophils % (A) 84 %; Platelet Count 501 k/uL (150-450); RBC 4.92 m/uL (3.80-5.40); RDW 16.6 % (11.5-15.5); WBC 23.8 k/uL (3.8-10.6)
[2018-03-21 21:21] LABS: HGB 12.5 gm/dL (11.4-16.0); MCV 84.5 fL (80.0-100.0)
[2018-03-21] MEDS ORDERED: MORPHINE SULFATE 2 MG/ML SYRINGE IV STA ×2 (21:50→23:23)
[2018-03-21 21:53] LABS: Creatine Kinase 29 U/L (30-135)
[2018-03-21 21:56] LABS: Albumin 3.3 g/dL (3.5-5.0); Calcium 8.2 mg/dL (8.4-10.2); Potassium 3.5 mmol/L (3.5-5.1); Total Bilirubin 0.2 mg/dL (0.2-1.3); Total Protein 6.2 g/dL (6.3-8.2)
[2018-03-21 22:16] LABS: Creatine Kinase MB 0.5 ng/mL (0.0-2.4); Troponin I <0.012 ng/mL (0.000-0.034)
--- NOTE | 2018-03-21 23:00 | CT ---
EXAMINATION TYPE: CT abdomen pelvis wo con DATE OF EXAM: 03/21/2018 COMPARISON: 02/01/2018 HISTORY: Lower abdominal pain wit nausea and diarrhea CT DLP: 1511.2 mGycm Automated exposure control for dose reduction was used. TECHNIQUE: Helical acquisition of images was performed from the lung bases through the pelvis. FINDINGS: There is dense pleural and pulmonary calcification at the left lung base. There is mild pleural thick ening at the left lung base. There is a 2 cm subpleural nodular density in the lateral right lower lo be. Liver shows no focal defect. There is probably some gallbladder wall thickening. Bile ducts are not d ilated. The spleen appears normal. I see no pancreatic mass. There is no ascites. There is no adrenal mass. Kidneys have normal size. There is no hydronephrosis. There are's tiny bilateral renal calcifi cations. Abdominal aorta is atheromatous. There is no retroperitoneal adenopathy. Bladder distends sm oothly. There are small calcified uterine fibroids. I see no intestinal wall thickening. There are is some fluid levels in the large bowel. There is no sign of a bowel obstruction. There is no evidence of free air. IMPRESSION: NO RENAL OBSTRUCTION. MULTIPLE SMALL BILATERAL RENAL CALCIFICATIONS. ATHEROSCLEROTIC VASCULAR DISEASE . LARGE BOWEL FLUID CONSISTENT WITH DIARRHEA. NO FREE AIR. DENSE PLEURAL AND PULMONARY CALCIFICATION IN THE LEFT LOWER LOBE IS STABLE COMPARED TO OLD EXAM AND CONSISTENT WITH SCARRING. STABLE SUBPLEURAL NODULAR DENSITY IN THE LATERAL RIGHT LOWER LOBE. CARDIOMEGALY.
[2018-03-21] MEDS ORDERED: NITROGLYCERIN SL TABS 0.4 MG TAB SUBLINGUAL PRN (23:27)
[2018-03-21] MEDS ORDERED: ACETAMINOPHEN TAB 500 MG TAB PO PRN (23:29)
[2018-03-22 01:21] VITALS: BMI 33.1
[2018-03-22] MEDS ORDERED: MORPHINE SULFATE 2 MG/ML SYRINGE IVP PRN (01:32)
[2018-03-22] MEDS: GABAPENTIN 400 MG CAP PO SCH ×4 (01:42→20:52)
[2018-03-22] MEDS: DILTIAZEM ORAL 60 MG TAB PO SCH ×4 (01:42→20:52)
[2018-03-22 02:18] LABS: Cholesterol 99 mg/dL (<200); HDL Cholesterol 33 mg/dL (40-60); LDL Cholesterol,Calculated 48 mg/dL (0-99); Triglycerides 89 mg/dL (<150)
[2018-03-22 02:29] LABS: Creatine Kinase MB 0.6 ng/mL (0.0-2.4); Troponin I 0.015 ng/mL (0.000-0.034)
[2018-03-22] MEDS: ONDANSETRON 4 MG/2 ML VIAL IVP PRN ×2 (04:42→12:43)
[2018-03-22] MEDS: MORPHINE SULFATE 2 MG/ML SYRINGE IVP PRN ×4 (04:57→22:06)
[2018-03-22 06:40] LABS: Glucose,Whole Blood 131 mg/dL (75-99)
[2018-03-22] MEDS ORDERED: PANTOPRAZOLE 40 MG TABLET PO SCH (07:30)
[2018-03-22] MEDS ORDERED: APIXABAN 5 MG TAB PO SCH (09:00)
[2018-03-22] MEDS ORDERED: ASPIRIN 325 MG TAB PO SCH (09:00)
[2018-03-22 09:24] LABS: Creatine Kinase MB 0.5 ng/mL (0.0-2.4); Troponin I 0.02 ng/mL (0.000-0.034)
[2018-03-22] MEDS: PANTOPRAZOLE 40 MG/10 ML VIAL IVP SCH (09:36)
--- NOTE | 2018-03-22 10:07 | ECHOF ---
Referral Reason:EKG changes MEASUREMENTS -------- HEIGHT: 172.7 cm WEIGHT: 98.4 kg BP: 107/49 RVIDd: 4.7 cm (< 3.3) IVSd: 1.7 cm (0.6 - 1.1) LVIDd: 3.2 cm (3.9 - 5.3) LVPWd: 1.4 cm (0.6 - 1.1) IVSs: 1.7 cm LVIDs: 2.2 cm LVPWs: 2.3 cm LAESV Index (A-L): 58.50 ml/m Ao Diam: 3.0 cm (2.0 - 3.7) AV Cusp: 2.0 cm (1.5 - 2.6) LA Diam: 4.3 cm (2.7 - 3.8) MV EXCURSION: 13.883 mm (> 18.000) MV EF SLOPE: 52 mm/s (70 - 150) EPSS: 0.3 cm MV E Rei: 1.36 m/s MV DecT: 203 ms MV A Rei: 0.26 m/s MV E/A Ratio: 5.18 RAP: 5.00 mmHg RVSP: 33.76 mmHg FINDINGS -------- Sinus rhythm with extra systolic beats. This was a technically difficult study with suboptimal views. The left ventricular size is normal. There is moderate concentric left ventricular hypertrophy. O verall left ventricular systolic function is normal with, an EF between 55 - 60 %. The right ventricle is severely enlarged. LA is severely dilated >40 ml/m2 The right atrium is normal in size. Lumason used The aortic valve was not well visualized. Mild mitral regurgitation is present. Mild tricuspid regurgitation present. The right ventricular systolic pressure, as measured by Doppl er, is 33.76mmHg. Pulmonic valve appears structurally normal. The aortic root size is normal. The pericardium is normal. CONCLUSIONS -------- 1. Sinus rhythm with extra systolic beats. 2. This was a technically difficult study with suboptimal views. 3. The left ventricular size is normal. 4. There is moderate concentric left ventricular hypertrophy. 5. Overall left ventricular systolic function is normal with, an EF between 55 - 60 %. 6. The right ventricle is severely enlarged. 7. LA is severely dilated >40 ml/m2 8. The right atrium is normal in size. 9. Lumason used 10. The aortic valve was not well visualized. 11. Mild mitral regurgitation is present. 12. Mild tricuspid regurgitation present. 13. The right ventricular systolic pressure, as measured by Doppler, is 33.76mmHg. 14. Pulmonic valve appears structurally normal. 15. The aortic root size is normal. 16. The pericardium is normal. ADVERTISING ACCOUNT MANAGER: Itzel Patel RDCS
--- NOTE | 2018-03-22 11:15 | P.CRDCN ---
History of Present Illness History of present illness: Mrs. 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 She follows with Dr. Jean in the office. We have been asked to see her in consultation for epigastric pain. She complains of significant abdominal burning, nausea and pain. Her abdomen is tender to light palpitation. KUB xray is negative for an acute abdomen, CT abdomen/pelvis shows no renal obstruction, multiple smal renal calcifications bilaterally, large bowel fluid consistent with diarrhea and some gallbladder wall thickening. She denies symptoms of chest pain, shortness of breath, diaphoresis, palpitations or dizziness. She was recently admitted in the hospital with UTI and weakness. During that hospitalization telemetry tracings showed she had a small pause of 2.5-3 seconds and her toprol was decreased. EKG on arrival reveals atrial fibrillation with diffuse ST depression, this is noted on old EKG with more pronounced this time. Possibly related to faster rate. Laboratory data reviewed, WBC 23.8, hemoglobin 12.5, platelets 501, sodium 136, potassium 3.5, creatinine 0.9, cardiac enzymes normal 3, LDL 48, HDL 33. Current cardiac medications include Toprol 50 mg daily, losartan 100 mg daily, Lasix 40 mg daily, Cardizem 60 mg 3 times a day, Eliquis 5 mg BID and atrovastatin 40 mg daily. She also takes albuterol, Colace, iron supplementation, Neurontin, Amaryl, insulin, DuoNeb, Claritin, milk of magnesia for protonix, MiraLAX and Senokot. Most recent echocardiogram performed 01/2018 reveals preserved LV systolic function with EF 55-60%. Review of Systems CONSTITUTIONAL: Denies fever. Denies chills. EYES: Denies blurred vision. Denies vision changes. Denies eye pain. EARS, NOSE, MOUTH & THROAT: Denies headache. Denies sore throat. Denies ear pain. CARDIOVASCULAR: Denies chest pain. Denies shortness of breath. Denies orthopnea. Denies PND. Denies palpitations. RESPIRATORY: Denies cough. GASTROINTESTINAL: Complains of abdominal pain. Denies diarrhea. Denies constipation. Denies nausea. Denies vomiting. MUSCULOSKELETAL: Denies myalgias. INTEGUMENTARY: Denies pruitis. Denies rash. NEUROLOGIC: Denies numbness. Denies tingling. Denies weakness. PSYCHIATRIC: Denies anxiety. Denies depression. ENDOCRINE: Denies fatigue. Denies weight change. Denies polydipsia. Denies polyurina. GENITOURINARY: Denies burning, hematuria or urgency with micturation. HEMATOLOGIC: Denies history of anemia. Denies bleeding. Past Medical History Past Medical History: Atrial Fibrillation, Coronary Artery Disease (CAD), Heart Failure, COPD, Diabetes Mellitus, GERD/Reflux, Hyperlipidemia, Hypertension, Memory Impairment Additional Past Medical History / Comment(s): COPD severe with an FEV1 of 36%, chronic hypoxic respiratory failure, non-small cell lung cancer with a previous left lower lobe resection, chronic atrial fibrillation, hypertension, coronary artery disease, diabetes mellitus, meningitis back in the 70s History of Any Multi-Drug Resistant Organisms: VRE Date of last positivie culture/infection: 02/07/18 MDRO Source:: VRE URINE Past Surgical History: Heart Catheterization With Stent, Tubal Ligation Additional Past Surgical History / Comment(s): Left lower lobe lung removed, right shoulder rotator cuff.egd w/ bx Past Anesthesia/Blood Transfusion Reactions: No Reported Reaction Additional Past Anesthesia/Blood Transfusion Reaction / Comment(s): Claustrophobia. past blood transfusion-no reaction Date of Last Stent Placement:: unk Smoking Status: Former smoker - Past Family History Mother History Unknown: Yes Family Medical History: No Reported History Father Family Medical History: Diabetes Mellitus Medications and Allergies Home Medications Medication Instructions Recorded Confirmed Type Atorvastatin [Lipitor] 40 mg PO HS 11/17/16 03/22/18 History Cholecalciferol [Vitamin D3] 4,000 unit PO HS 11/17/16 03/22/18 History Cyanocobalamin [Vitamin B-12] 500 mcg PO DAILY 11/17/16 03/22/18 History Glimepiride [Amaryl] 4 mg PO AC-BID 11/17/16 03/22/18 History Albuterol Inhaler [Ventolin Hfa 2 puff INHALATION RT-BID 07/22/17 03/22/18 History Inhaler] Loratadine [Claritin] 10 mg PO DAILY 07/22/17 03/22/18 History Apixaban [Eliquis] 5 mg PO BID #60 tab 08/02/17 03/22/18 Rx Pantoprazole Sodium [Protonix] 40 mg PO BID #60 tablet.dr 01/05/18 03/22/18 Rx Ferrous Sulfate [Iron (65 MG 325 mg PO BID tab 02/01/18 03/22/18 Rx Elemental)] Ipratropium-Albuterol Nebulize 3 ml INHALATION RT-QID ampul.neb 02/01/18 Rx [Duoneb 0.5 mg-3 mg/3 ml Soln] Polyethylene Glycol 3350 [Miralax] 17 gm PO DAILY #30 packet 02/03/18 03/22/18 Rx Gabapentin [Neurontin] 800 mg PO Q8H 02/07/18 03/22/18 History Metoprolol Succinate (ER) [Toprol 50 mg PO DAILY #30 tab.er.24h 02/15/18 Rx XL] Furosemide [Lasix] 40 mg PO DAILY tab 02/16/18 03/22/18 Rx Insulin Detemir [Levemir] 18 unit SQ HS syr 02/16/18 03/22/18 Rx Acetaminophen Tab [Tylenol] 500 mg PO Q6HR PRN 03/21/18 03/22/18 History Diltiazem Oral [Cardizem*] 60 mg PO Q8H 03/21/18 03/22/18 History Docusate [Colace] 100 mg PO HS 03/21/18 03/22/18 History Glycerin Adult Suppository 1 supp RECTAL DAILY 03/21/18 03/22/18 History Insulin Aspart [NovoLOG 3 unit SQ ACHS 03/21/18 03/22/18 History (formulary)] Losartan Potassium [Cozaar] 100 mg PO DAILY 03/21/18 03/22/18 History Magnesium Hydroxide [Milk of 2,400 mg PO DAILY PRN 03/21/18 03/22/18 History Magnesia Concentrate] Sennosides-Docusate Sodium 2 tab PO BID 03/21/18 03/22/18 History [Senokot-S] Allergies Allergy/AdvReac Type Severity Reaction Status Date / Time codeine Allergy Unknown Verified 03/22/18 01:21 Physical Exam Vitals: Vital Signs Temp Pulse Pulse Resp BP BP Pulse Ox 03/22/18 08:00 98.8 F 95 16 107/49 96 03/22/18 03:51 16 03/22/18 03:29 98.3 F 100 16 139/55 95 03/22/18 01:48 16 03/22/18 01:14 98.2 F 97 16 133/50 93 L 03/22/18 00:56 98.6 F 98 18 165/72 96 03/21/18 23:55 91 18 160/70 97 03/21/18 23:05 98 F 79 20 142/65 97 03/21/18 21:53 101 H 18 180/82 96 03/21/18 19:42 98.3 F 96 18 146/67 96 Intake and Output 03/21/18 03/22/18 03/22/18 22:59 06:59 14:59 Other: Weight 98.883 kg 98.8 kg Blood pressure 107/49 heart rate 95 afebrile maintaining oxygen saturation on nasal cannula GENERAL: This is a 72-year-old female in no apparent distress at the time of my examination. HEENT: Head is atraumatic, normocephalic. Pupils are equal, round. Sclerae anicteric. Conjunctivae are clear. Mucous membranes of the mouth are moist. Neck is supple. There is no jugular venous distention. No carotid bruit is heard. LUNGS: Clear to auscultation no wheezes, rales or rhonchi. No chest wall tenderness is noted on palpation or with deep breathing. HEART: Irregular rate and rhythm without murmurs, rubs or gallops. S1 and S2 heard. ABDOMEN: Soft, tender upper quadrants. Bowel sounds are heard. No organomegaly noted. EXTREMITIES: No evidence of peripheral edema and no calf tenderness noted. VASCULAR: Radial and dorsalis pedis pulses palpated, no evidence of clubbing. NEUROLOGIC: Patient is awake, alert and oriented x3. Results 03/21/18 20:04 03/21/18 20:04 Cardiac Enzymes 03/21/18 03/21/18 03/22/18 Range/Units 20:04 20:07 01:44 AST 34 (14-36) U/L CK-MB (CK-2) 0.5 0.6 (0.0-2.4) ng/mL Troponin I <0.012 0.015 (0.000-0.034) ng/mL 03/22/18 Range/Units 08:28 AST (14-36) U/L CK-MB (CK-2) 0.5 (0.0-2.4) ng/mL Troponin I 0.020 (0.000-0.034) ng/mL Lipids 03/22/18 Range/Units 01:44 Triglycerides 89 (<150) mg/dL Cholesterol 99 (<200) mg/dL HDL Cholesterol 33 L (40-60) mg/dL CBC 03/21/18 Range/Units 20:04 WBC 23.8 H (3.8-10.6) k/uL RBC 4.92 (3.80-5.40) m/uL Hgb 12.5 D (11.4-16.0) gm/dL Hct 41.6 (34.0-46.0) % Plt Count 501 H (150-450) k/uL Comprehensive Metabolic Panel 03/21/18 Range/Units 20:04 Sodium 136 L (137-145) mmol/L Potassium 3.5 (3.5-5.1) mmol/L Chloride 92 L (98-107) mmol/L Carbon Dioxide 28 (22-30) mmol/L BUN 17 (7-17) mg/dL Creatinine 0.90 (0.52-1.04) mg/dL Glucose 171 H (74-99) mg/dL Calcium 8.2 L (8.4-10.2) mg/dL AST 34 (14-36) U/L ALT 30 (9-52) U/L Alkaline Phosphatase 106 (38-126) U/L Total Protein 6.2 L (6.3-8.2) g/dL Albumin 3.3 L (3.5-5.0) g/dL Current Medications Generic Name Dose Route Start Last Admin Trade Name Freq PRN Reason Stop Dose Admin Acetaminophen 500 mg 03/21/18 23:29 Tylenol Tab PO Q6HR PRN Fever and/ or Mild Pain Albuterol Sulfate 2.5 mg 03/22/18 08:00 Ventolin Nebulized INHALATION RT-BID [facility] Apixaban 5 mg 03/22/18 09:00 Eliquis PO BID BRITTANI Aspirin 81 mg 03/22/18 09:15 Aspirin PO DAILY [facility] Atorvastatin Calcium 40 mg 03/22/18 21:00 Lipitor PO HS [facility] Cyanocobalamin 500 mcg 03/22/18 09:00 Vitamin B-12 PO DAILY [facility] Diltiazem HCl 60 mg 03/22/18 01:00 03/22/18 01:42 Cardizem Oral PO 60 mg Q8H [facility] Administration Furosemide 40 mg 03/22/18 09:00 Lasix PO DAILY [facility] Gabapentin 800 mg 03/22/18 01:00 03/22/18 01:42 Neurontin PO 800 mg Q8H [facility] Administration Glimepiride 4 mg 03/22/18 07:30 Amaryl PO AC-BID [facility] Insulin Aspart 3 unit 03/22/18 07:30 Novolog SQ ACHS [facility] Insulin Detemir 18 unit 03/22/18 21:00 Levemir SQ HS [facility] Losartan Potassium 100 mg 03/22/18 09:00 Cozaar PO DAILY [facility] Metoprolol Succinate 50 mg 03/22/18 09:00 Toprol Xl PO DAILY [facility] Morphine Sulfate 2 mg 03/22/18 02:14 03/22/18 04:57 Morphine Sulfate (Inj) IVP 2 mg Q3H PRN Administration Pain/Discomfort Nitroglycerin 0.4 mg 03/21/18 23:27 Nitrostat SUBLINGUAL Q5M PRN Chest Pain Ondansetron HCl 4 mg 03/22/18 04:32 03/22/18 04:42 Zofran IVP 4 mg Q6HR PRN Administration Nausea And Vomiting Pantoprazole Sodium 40 mg 03/22/18 09:00 03/22/18 09:36 Protonix IVP 40 mg DAILY [facility] Administration Sodium Chloride 10 ml 03/22/18 09:00 Saline Flush IV BID [facility] Intake and Output 03/21/18 03/22/18 03/22/18 22:59 06:59 14:59 Other: Weight 98.883 kg 98.8 kg 03/21/18 20:04 03/21/18 20:04 Assessment and Plan Assessment: ASSESSMENT 1. Abdominal pain and tenderness 2. Chronic persistent atrial fibrillation on intermediate teacher anti-coagulation with controlled ventricular response 3. History of diastolic heart failure, currently euvolemic 4. Hypertension 5. History of previous coronary artery disease 6. COPD 7. Diabetes mellitus 8. Obesity 9. Leukocytosis PLAN Continue with current medical therapy. Obtain ultrasound of gallbladder secondary to pain and gallbladder thickening on CT scan. No further cardiac work-up required. Follow up with Dr. Jean in 2-3 weeks. Thank you kindly for this consultation. Nurse Practitioner note has been reviewed, I agree with a documented findings and plan of care. Patient was seen and examined.
[2018-03-22] MEDS: ALBUTEROL NEBULIZED 2.5 MG/3 ML INHALATION SCH ×2 (11:18→19:51)
--- NOTE | 2018-03-22 11:42 | P.HPIM ---
History of Present Illness H&P Date: 03/22/18 Chief Complaint: Vomiting and diarrhea 2 days This is a 72-year-old female with a past medical history of atrial fibrillation , coronary artery disease, congestive heart failure, COPD, diabetes mellitus, hyperlipidemia, hypertension, VRE in the urine. Patient presents to the emergency room with complaints of vomiting and diarrhea over the last 2 days. Patient also reporting a burning sensation in her stomach that has been ongoing since December. She takes Protonix for this. Patient reported that her stools were black. But she does take iron at home. She does usually have some issues with constipation in the past. And was supposed to have a colonoscopy outpatient. However, patient now reporting that she was told that she is too weak to proceed with colonoscopy. Stool for C. diff was negative. White count was elevated at 23.8 computed tomography scan of the abdomen multiple small bilateral renal calcifications. Large bowel fluid consistent with diarrhea. No free air. Dense pleural and pulmonary calcification in the left lower lobe is stable. And consistent with scarring. Stable sub-pleural nodular density in the lateral right lower lobe. CAT scan had also shown some gallbladder wall thickening. LFTs are normal. Amylase and lipase are normal. Surgical service has been consulted. Patient also had EKG changes with ST depression. Cardiology was consulted. Cardiology reported that the diffuse ST depression was noted on old EKG and more pronounced this time likely related to a faster rate. Patient denies any chest pain or shortness of breath. Denies any burning with urination or frequency or urgency. Patient does report dark or watery stools. And also reports a few scant episodes of blood in her vomit. Patient did have one emesis this morning that was mostly bile. And last stool was in the ER last night. Review of Systems Please refer to HPI otherwise unremarkable Past Medical History Past Medical History: Atrial Fibrillation, Coronary Artery Disease (CAD), Heart Failure, COPD, Diabetes Mellitus, GERD/Reflux, Hyperlipidemia, Hypertension, Memory Impairment Additional Past Medical History / Comment(s): COPD severe with an FEV1 of 36%, chronic hypoxic respiratory failure, non-small cell lung cancer with a previous left lower lobe resection, chronic atrial fibrillation, hypertension, coronary artery disease, diabetes mellitus, meningitis back in the 70s History of Any Multi-Drug Resistant Organisms: VRE Date of last positivie culture/infection: 02/07/18 MDRO Source:: VRE URINE Past Surgical History: Heart Catheterization With Stent, Tubal Ligation Additional Past Surgical History / Comment(s): Left lower lobe lung removed, right shoulder rotator cuff.egd w/ bx Past Anesthesia/Blood Transfusion Reactions: No Reported Reaction Additional Past Anesthesia/Blood Transfusion Reaction / Comment(s): Claustrophobia. past blood transfusion-no reaction Date of Last Stent Placement:: unk Smoking Status: Former smoker - Past Family History Mother History Unknown: Yes Family Medical History: No Reported History Father Family Medical History: Diabetes Mellitus Medications and Allergies Home Medications Medication Instructions Recorded Confirmed Type Atorvastatin [Lipitor] 40 mg PO HS 11/17/16 03/22/18 History Cholecalciferol [Vitamin D3] 4,000 unit PO HS 11/17/16 03/22/18 History Cyanocobalamin [Vitamin B-12] 500 mcg PO DAILY 11/17/16 03/22/18 History Glimepiride [Amaryl] 4 mg PO AC-BID 11/17/16 03/22/18 History Albuterol Inhaler [Ventolin Hfa 2 puff INHALATION RT-BID 07/22/17 03/22/18 History Inhaler] Loratadine [Claritin] 10 mg PO DAILY 07/22/17 03/22/18 History Apixaban [Eliquis] 5 mg PO BID #60 tab 08/02/17 03/22/18 Rx Pantoprazole Sodium [Protonix] 40 mg PO BID #60 tablet. 01/05/18 03/22/18 Rx Ferrous Sulfate [Iron (65 MG 325 mg PO BID tab 02/01/18 03/22/18 Rx Elemental)] Ipratropium-Albuterol Nebulize 3 ml INHALATION RT-QID ampul.neb 02/01/18 Rx [Duoneb 0.5 mg-3 mg/3 ml Soln] Polyethylene Glycol 3350 [Miralax] 17 gm PO DAILY #30 packet 02/03/18 03/22/18 Rx Gabapentin [Neurontin] 800 mg PO Q8H 02/07/18 03/22/18 History Metoprolol Succinate (ER) [Toprol 50 mg PO DAILY #30 tab.er.24h 02/15/18 Rx XL] Furosemide [Lasix] 40 mg PO DAILY tab 02/16/18 03/22/18 Rx Insulin Detemir [Levemir] 18 unit SQ HS syr 02/16/18 03/22/18 Rx Acetaminophen Tab [Tylenol] 500 mg PO Q6HR PRN 03/21/18 03/22/18 History Diltiazem Oral [Cardizem*] 60 mg PO Q8H 03/21/18 03/22/18 History Docusate [Colace] 100 mg PO HS 03/21/18 03/22/18 History Glycerin Adult Suppository 1 supp RECTAL DAILY 03/21/18 03/22/18 History Insulin Aspart [NovoLOG 3 unit SQ ACHS 03/21/18 03/22/18 History (formulary)] Losartan Potassium [Cozaar] 100 mg PO DAILY 03/21/18 03/22/18 History Magnesium Hydroxide [Milk of 2,400 mg PO DAILY PRN 03/21/18 03/22/18 History Magnesia Concentrate] Sennosides-Docusate Sodium 2 tab PO BID 03/21/18 03/22/18 History [Senokot-S] Allergies Allergy/AdvReac Type Severity Reaction Status Date / Time codeine Allergy Unknown Verified 03/22/18 01:21 Physical Exam Vitals: Vital Signs Temp Pulse Pulse Resp BP BP Pulse Ox 03/22/18 11:20 96 03/22/18 08:00 98.8 F 95 16 107/49 96 03/22/18 03:51 16 03/22/18 03:29 98.3 F 100 16 139/55 95 03/22/18 01:48 16 03/22/18 01:14 98.2 F 97 16 133/50 93 L 03/22/18 00:56 98.6 F 98 18 165/72 96 03/21/18 23:55 91 18 160/70 97 03/21/18 23:05 98 F 79 20 142/65 97 03/21/18 21:53 101 H 18 180/82 96 03/21/18 19:42 98.3 F 96 18 146/67 96 Intake and Output 03/21/18 03/22/18 03/22/18 22:59 06:59 14:59 Other: Weight 98.883 kg 98.8 kg Head normocephalic Neck supple Lungs a few scattered wheezes Heart regular rate and rhythm S1-S2, no rub or gallop Abdomen is soft epigastric tenderness nondistended positive bowel sounds no hepatosplenomegaly Extremities no edema Neuro alert and orientated to 3 Results CBC & Chem 7: 03/21/18 20:04 03/21/18 20:04 Labs: Abnormal Lab Results - Last 24 Hours (Table) 03/21/18 03/21/18 03/21/18 Range/Units 20:04 20:04 20:07 WBC 23.8 H (3.8-10.6) k/uL MCHC 30.0 L (31.0-37.0) g/dL RDW 16.6 H (11.5-15.5) % Plt Count 501 H (150-450) k/uL Neutrophils # 20.1 H (1.3-7.7) k/uL Sodium 136 L (137-145) mmol/L Chloride 92 L (98-107) mmol/L Glucose 171 H (74-99) mg/dL POC Glucose (mg/dL) (75-99) mg/dL Calcium 8.2 L (8.4-10.2) mg/dL Total Creatine Kinase 29 L (30-135) U/L Total Protein 6.2 L (6.3-8.2) g/dL Albumin 3.3 L (3.5-5.0) g/dL HDL Cholesterol (40-60) mg/dL 03/22/18 03/22/18 03/22/18 Range/Units 01:44 01:44 06:39 WBC (3.8-10.6) k/uL MCHC (31.0-37.0) g/dL RDW (11.5-15.5) % Plt Count (150-450) k/uL Neutrophils # (1.3-7.7) k/uL Sodium (137-145) mmol/L Chloride (98-107) mmol/L Glucose (74-99) mg/dL POC Glucose (mg/dL) 131 H (75-99) mg/dL Calcium (8.4-10.2) mg/dL Total Creatine Kinase 26 L (30-135) U/L Total Protein (6.3-8.2) g/dL Albumin (3.5-5.0) g/dL HDL Cholesterol 33 L (40-60) mg/dL 06/12/18 Range/Units 08:28 WBC (3.8-10.6) k/uL MCHC (31.0-37.0) g/dL RDW (11.5-15.5) % Plt Count (150-450) k/uL Neutrophils # (1.3-7.7) k/uL Sodium (137-145) mmol/L Chloride (98-107) mmol/L Glucose (74-99) mg/dL POC Glucose (mg/dL) (75-99) mg/dL Calcium (8.4-10.2) mg/dL Total Creatine Kinase 28 L (30-135) U/L Total Protein (6.3-8.2) g/dL Albumin (3.5-5.0) g/dL HDL Cholesterol (40-60) mg/dL Thrombosis Risk Factor Assmnt - Choose All That Apply Each Risk Factor Represents 2 Points: Age 61-74 years Thrombosis Risk Factor Assessment Total Risk Factor Score: 2 Thrombosis Risk Factor Assessment Level: Low Risk Assessment and Plan Assessment: 1. Abdominal pain with vomiting and diarrhea: Computed tomography scan had showed large bowel fluid consistent with diarrhea no free air. Also had shown probable gallbladder wall thickening. Agree with abdominal ultrasound. LFTs are normal. Amylase lipase normal. Surgery has been consulted. Continue with IV fluid hydration. Stool for C. diff negative. Continue IV Protonix 2. Diffuse ST depression on EKG. Patient evaluated by cardiology service and felt this is also noted on her old EKGs and likely more pronounced due to faster heart rate. Cardiology has signed off. They've also ordered an echocardiogram. 3. History of COPD: Stable continue nebulizer treatments 4. History of chronic persistent atrial fibrillation with controlled rate. Continue Eliquis for anticoagulation 5. Essential hypertension 6. Hyperlipidemia 7. Diabetes mellitus, insulin-dependent. Resume home insulin. Add sliding scale coverage 8. History of coronary artery disease and cardiac stent DVT prophylaxis Eliquis and GI prophylaxis Protonix Time with Patient: Greater than 30 (Greater than 60% of the total time spent in counseling and coordination of care.I performed an examination of the patient and discussed their management with the physician Paint Laboratory Technician. I have reviewed the Physician Paint Laboratory Technician's notes and agree with the documented findings and plan of care)
[2018-03-22 11:59] LABS: Appearance,Urine Turbid (Clear); Bacteria,Urine Many /hpf; Bilirubin,Urine Negative (Negative); Blood,Urine Trace (Negative); Color,Urine Light Red; Glucose,Urine (UA) Negative (Negative); Hyaline Casts,Urine 289 /lpf (0-2); Ketones,Urine Negative (Negative); Leukocyte Esterase,Urine Large (Negative); Mucus,Urine Many /hpf; Nitrite,Urine Negative (Negative); PH, Urine 5.5 (5.0-8.0); Protein,Urine 2+ (Negative); RBC,Urine 43 /hpf (0-5); Specific Gravity,Urine 1.015 (1.001-1.035); Squamous Epithelial Cell,Urine 119 /hpf (0-4); Urobilinogen,Urine <2.0 mg/dL (<2.0); WBC,Urine >182 /hpf (0-5)
[2018-03-22 12:10] LABS: Glucose,Whole Blood 168 mg/dL (75-99)
--- NOTE | 2018-03-22 12:20 | US ---
EXAMINATION TYPE: US gallbladder DATE OF EXAM: 03/22/2018 COMPARISON: 01/30/2018 CLINICAL HISTORY: abd pain; diarrhea, nausea and vomiting, upper abdominal pain EXAM MEASUREMENTS: Liver Length: 18.2 cm Gallbladder Wall: 0.4 cm CBD: 0.9 cm Right Kidney: 12.5 x 6.2 x 5.0 cm Pancreas: wnl Liver: no masses seen Gallbladder: mixed internal contents with some mobility of upper internal contents, but lower isoech oic, round mixed area in neck = 1.2 x 0.7 x 0.7cm appears nonmobile; abnormally thickened wall Evidence for sonographic Lou's sign: yes CBD: abnormally dilated for 7th decade Right Kidney: No hydronephrosis or masses seen IMPRESSION: 1. Mixed internal contents within the gallbladder may represent a combination of sludge and stones. A more nonmobile area of echogenicity measuring 1.2 cm could represent polyp or adherent stone, sludge . Gallbladder wall is thickened at 4 mm. Related for cholecystitis. CBD measures 0.9 mm and appears d ilated correlate with ERCP or MRCP to assess for distal stone or sludge. Mucosal lesion not excluded.
[2018-03-22] MEDS: SODIUM CHLORIDE 0.9% 1,000 ML IV SCH (12:43)
[2018-03-22] MEDS: INSULIN ASPART 100 UNIT/ML 1 ML 10 ML VIAL SQ SCH ×7 (13:45→20:50)
[2018-03-22] MEDS ORDERED: cefTRIAXone IN SWFI 1,000 MG/10 ML SYRINGE IVP SCH (13:45)
[2018-03-22] MEDS: GLIMEPIRIDE 4 MG TAB PO SCH ×2 (13:45→19:58)
[2018-03-22] MEDS: CYANOCOBALAMIN 500 MCG TAB PO SCH (13:46)
--- NOTE | 2018-03-22 14:19 | P.GSCN ---
History of Present Illness Consult date: 03/22/18 Reason for Consult: Abdominal pain, nausea, vomiting History of present illness: The patient's a 72-year-old female who presented with abdominal pain, nausea, vomiting for 2 days prior to admission. She also had some diarrhea. Seen her in December for some similar symptoms. At that time she had a EGD showing gastritis which was diffuse. There was no H. pylori. She is started on medication. She says she is felt the same since then. Previous HIDA scan showed no evidence of stick duct obstruction. It was recommended she undergo medical therapy at that time. She says she is hasn't felt well since then and is having persistent nausea. She also has had admission for urinary tract infection. A stool was obtained for Clostridium difficile and was negative. She denies fevers or chills. She thought she saw a trace of blood in vomitus. She is nauseated now. Currently on elliquis for atrial fibrillation. Review of Systems All systems: negative Past Medical History Past Medical History: Atrial Fibrillation, Coronary Artery Disease (CAD), Heart Failure, COPD, Diabetes Mellitus, GERD/Reflux, Hyperlipidemia, Hypertension, Memory Impairment Additional Past Medical History / Comment(s): COPD severe with an FEV1 of 36%, chronic hypoxic respiratory failure, non-small cell lung cancer with a previous left lower lobe resection, chronic atrial fibrillation, hypertension, coronary artery disease, diabetes mellitus, meningitis back in the 70s History of Any Multi-Drug Resistant Organisms: VRE Year Discovered:: 02/07/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 past blood transfusion-no reaction Date of Last Stent Placement:: unk Smoking Status: Former smoker - Past Family History Mother History Unknown: Yes Family Medical History: No Reported History Father Family Medical History: Diabetes Mellitus Medications and Allergies Home Medications Medication Instructions Recorded Confirmed Type Atorvastatin [Lipitor] 40 mg PO HS 11/17/16 03/22/18 History Cholecalciferol [Vitamin D3] 4,000 unit PO HS 11/17/16 03/22/18 History Cyanocobalamin [Vitamin B-12] 500 mcg PO DAILY 11/17/16 03/22/18 History Glimepiride [Amaryl] 4 mg PO AC-BID 11/17/16 03/22/18 History Albuterol Inhaler [Ventolin Hfa 2 puff INHALATION RT-BID 07/22/17 03/22/18 History Inhaler] Loratadine [Claritin] 10 mg PO DAILY 07/22/17 03/22/18 History Apixaban [Eliquis] 5 mg PO BID #60 tab 08/02/17 03/22/18 Rx Pantoprazole Sodium [Protonix] 40 mg PO BID #60 tablet.dr 01/05/18 03/22/18 Rx Ferrous Sulfate [Iron (65 MG 325 mg PO BID tab 02/01/18 03/22/18 Rx Elemental)] Ipratropium-Albuterol Nebulize 3 ml INHALATION RT-QID ampul.neb 02/01/18 Rx [Duoneb 0.5 mg-3 mg/3 ml Soln] Polyethylene Glycol 3350 [Miralax] 17 gm PO DAILY #30 packet 02/03/18 03/22/18 Rx Gabapentin [Neurontin] 800 mg PO Q8H 02/07/18 03/22/18 History Metoprolol Succinate (ER) [Toprol 50 mg PO DAILY #30 tab.er.24h 02/15/18 Rx XL] Furosemide [Lasix] 40 mg PO DAILY tab 02/16/18 03/22/18 Rx Insulin Detemir [Levemir] 18 unit SQ HS syr 02/16/18 03/22/18 Rx Acetaminophen Tab [Tylenol] 500 mg PO Q6HR PRN 03/21/18 03/22/18 History Diltiazem Oral [Cardizem*] 60 mg PO Q8H 03/21/18 03/22/18 History Docusate [Colace] 100 mg PO HS 03/21/18 03/22/18 History Glycerin Adult Suppository 1 supp RECTAL DAILY 03/21/18 03/22/18 History Insulin Aspart [NovoLOG 3 unit SQ ACHS 03/21/18 03/22/18 History (formulary)] Losartan Potassium [Cozaar] 100 mg PO DAILY 03/21/18 03/22/18 History Magnesium Hydroxide [Milk of 2,400 mg PO DAILY PRN 03/21/18 03/22/18 History Magnesia Concentrate] Sennosides-Docusate Sodium 2 tab PO BID 03/21/18 03/22/18 History [Senokot-S] Allergies Allergy/AdvReac Type Severity Reaction Status Date / Time codeine Allergy Unknown Verified 03/22/18 01:21 Surgical - Exam Osteopathic Statement: *. No significant issues noted on an osteopathic structural exam other than those noted in the History and Physical/Consult. Vital Signs Temp Pulse Resp BP Pulse Ox 98.3 F 96 18 146/67 96 03/21/18 19:42 03/21/18 19:42 03/21/18 19:42 03/21/18 19:42 03/21/18 19:42 - General Appears uncomfortable with emesis basin near her head well developed, well nourished - Eyes normal ocular movement - ENT normal mucosa - Neck trachea midline, no lymphadectomy - Respiratory normal respiratory effort - Cardiovascular Rhythm: irregularly irregular - Abdomen Abdomen: soft, tender (Mild right upper quadrant), no guarding, no rigid, no rebound, no distended Hernia: no umbilical - Psychiatric oriented to time, oriented to person, oriented to place, speech is normal, memory intact Results - Labs 03/21/18 20:04 03/21/18 20:04 Abnormal Lab Results - Last 24 Hours (Table) 03/21/18 03/21/18 03/21/18 Range/Units 20:04 20:04 20:07 WBC 23.8 H (3.8-10.6) k/uL MCHC 30.0 L (31.0-37.0) g/dL RDW 16.6 H (11.5-15.5) % Plt Count 501 H (150-450) k/uL Neutrophils # 20.1 H (1.3-7.7) k/uL Sodium 136 L (137-145) mmol/L Chloride 92 L (98-107) mmol/L Glucose 171 H (74-99) mg/dL POC Glucose (mg/dL) (75-99) mg/dL Calcium 8.2 L (8.4-10.2) mg/dL Total Creatine Kinase 29 L (30-135) U/L Total Protein 6.2 L (6.3-8.2) g/dL Albumin 3.3 L (3.5-5.0) g/dL HDL Cholesterol (40-60) mg/dL Urine Appearance (Clear) Urine Protein (Negative) Urine Blood (Negative) Ur Leukocyte Esterase (Negative) Urine RBC (0-5) /hpf Urine WBC (0-5) /hpf Urine WBC Clumps (None) /hpf Ur Squamous Epith Cells (0-4) /hpf Urine Bacteria (None) /hpf Hyaline Casts (0-2) /lpf Urine Mucus (None) /hpf 03/22/18 03/22/18 03/22/18 Range/Units 01:44 01:44 06:39 WBC (3.8-10.6) k/uL MCHC (31.0-37.0) g/dL RDW (11.5-15.5) % Plt Count (150-450) k/uL Neutrophils # (1.3-7.7) k/uL Sodium (137-145) mmol/L Chloride (98-107) mmol/L Glucose (74-99) mg/dL POC Glucose (mg/dL) 131 H (75-99) mg/dL Calcium (8.4-10.2) mg/dL Total Creatine Kinase 26 L (30-135) U/L Total Protein (6.3-8.2) g/dL Albumin (3.5-5.0) g/dL HDL Cholesterol 33 L (40-60) mg/dL Urine Appearance (Clear) Urine Protein (Negative) Urine Blood (Negative) Ur Leukocyte Esterase (Negative) Urine RBC (0-5) /hpf Urine WBC (0-5) /hpf Urine WBC Clumps (None) /hpf Ur Squamous Epith Cells (0-4) /hpf Urine Bacteria (None) /hpf Hyaline Casts (0-2) /lpf Urine Mucus (None) /hpf 03/22/18 03/22/18 03/22/18 Range/Units 08:28 11:22 12:05 WBC (3.8-10.6) k/uL MCHC (31.0-37.0) g/dL RDW (11.5-15.5) % Plt Count (150-450) k/uL Neutrophils # (1.3-7.7) k/uL Sodium (137-145) mmol/L Chloride (98-107) mmol/L Glucose (74-99) mg/dL POC Glucose (mg/dL) 168 H (75-99) mg/dL Calcium (8.4-10.2) mg/dL Total Creatine Kinase 28 L (30-135) U/L Total Protein (6.3-8.2) g/dL Albumin (3.5-5.0) g/dL HDL Cholesterol (40-60) mg/dL Urine Appearance Turbid H (Clear) Urine Protein 2+ H (Negative) Urine Blood Trace H (Negative) Ur Leukocyte Esterase Large H (Negative) Urine RBC 43 H (0-5) /hpf Urine WBC >182 H (0-5) /hpf Urine WBC Clumps Many H (None) /hpf Ur Squamous Epith Cells 119 H (0-4) /hpf Urine Bacteria Many H (None) /hpf Hyaline Casts 289 H (0-2) /lpf Urine Mucus Many H (None) /hpf Diabetes panel 03/21/18 03/22/18 Range/Units 20:04 01:44 Sodium 136 L (137-145) mmol/L Potassium 3.5 (3.5-5.1) mmol/L Chloride 92 L (98-107) mmol/L Carbon Dioxide 28 (22-30) mmol/L BUN 17 (7-17) mg/dL Creatinine 0.90 (0.52-1.04) mg/dL Glucose 171 H (74-99) mg/dL Calcium 8.2 L (8.4-10.2) mg/dL AST 34 (14-36) U/L ALT 30 (9-52) U/L Alkaline Phosphatase 106 (38-126) U/L Total Protein 6.2 L (6.3-8.2) g/dL Albumin 3.3 L (3.5-5.0) g/dL Triglycerides 89 (<150) mg/dL HDL Cholesterol 33 L (40-60) mg/dL Calcium panel 03/21/18 Range/Units 20:04 Calcium 8.2 L (8.4-10.2) mg/dL Albumin 3.3 L (3.5-5.0) g/dL Pituitary panel 03/21/18 Range/Units 20:04 Sodium 136 L (137-145) mmol/L Potassium 3.5 (3.5-5.1) mmol/L Chloride 92 L (98-107) mmol/L Carbon Dioxide 28 (22-30) mmol/L BUN 17 (7-17) mg/dL Creatinine 0.90 (0.52-1.04) mg/dL Glucose 171 H (74-99) mg/dL Calcium 8.2 L (8.4-10.2) mg/dL Adrenal panel 03/21/18 Range/Units 20:04 Sodium 136 L (137-145) mmol/L Potassium 3.5 (3.5-5.1) mmol/L Chloride 92 L (98-107) mmol/L Carbon Dioxide 28 (22-30) mmol/L BUN 17 (7-17) mg/dL Creatinine 0.90 (0.52-1.04) mg/dL Glucose 171 H (74-99) mg/dL Calcium 8.2 L (8.4-10.2) mg/dL Total Bilirubin 0.2 (0.2-1.3) mg/dL AST 34 (14-36) U/L ALT 30 (9-52) U/L Alkaline Phosphatase 106 (38-126) U/L Total Protein 6.2 L (6.3-8.2) g/dL Albumin 3.3 L (3.5-5.0) g/dL - Imaging Additional studies: Abdominal ultrasound was reviewed Assessment and Plan (1) Nausea & vomiting Current Visit: Yes Status: Acute Code(s): R11.2 - NAUSEA WITH VOMITING, UNSPECIFIED SNOMED Code(s): 29859510 (2) Diarrhea Current Visit: Yes Status: Acute Code(s): R19.7 - DIARRHEA, UNSPECIFIED SNOMED Code(s): 93031930 (3) Epigastric abdominal pain Current Visit: Yes Status: Acute Code(s): R10.13 - EPIGASTRIC PAIN SNOMED Code(s): 35234604 (4) Acute cholecystitis Current Visit: No Status: Acute Code(s): K81.0 - ACUTE CHOLECYSTITIS SNOMED Code(s): 67581503 (5) Leukocytosis (leucocytosis) Current Visit: No Status: Acute Code(s): D72.829 - ELEVATED WHITE BLOOD CELL COUNT, UNSPECIFIED SNOMED Code(s): 030494336 (6) UTI (urinary tract infection) Current Visit: No Status: Acute Code(s): N39.0 - URINARY TRACT INFECTION, SITE NOT SPECIFIED SNOMED Code(s): 12802356 Plan: The patient does appear to have a urinary tract infection. Her ultrasound however shows gallbladder wall thickening and sludge or possibly stone in the gallbladder. The common bile duct is dominant at 9 mm. The liver function tests are normal. The case was discussed with medicine. The Eliquis will be held. IV antibiotics, medically maximize the patient. Due to recurrent symptoms and today's ultrasound findings recommend laparoscopic cholecystectomy possible open. This can be intentionally done or Wednesday. Further recommendations to follow
[2018-03-22] MEDS: LOSARTAN 50 MG TAB PO SCH (14:49)
[2018-03-22] MEDS: FUROSEMIDE 40 MG TAB PO SCH (14:49)
[2018-03-22] MEDS: ASPIRIN 81 MG PO SCH (14:49)
[2018-03-22] MEDS: METOCLOPRAMIDE 5 MG/ML 2 ML VIAL IVP PRN ×2 (14:50→20:48)
[2018-03-22] MEDS: cefTRIAXone IN SWFI 1,000 MG/10 ML SYRINGE IVP SCH (14:51)
[2018-03-22] MEDS: metroNIDAZOLE-NS PMX 500 MG in SALINE 1 100ML.BAG IVPB SCH (16:40)
[2018-03-22] MEDS: METOPROLOL SUCCINATE (ER) 50 MG TAB.ER.24H PO SCH (16:46)
[2018-03-22 17:32] LABS: Glucose,Whole Blood 178 mg/dL (75-99)
[2018-03-22] MEDS: FERROUS SULFATE 325 MG TAB PO SCH (20:49)
[2018-03-22] MEDS: INSULIN DETEMIR 100 UNIT/ML 10 ML VIAL SQ SCH (20:50)
[2018-03-22 20:56] LABS: Glucose,Whole Blood 189 mg/dL (75-99)
[2018-03-22] MEDS ORDERED: ATORVASTATIN 40 MG TAB PO SCH (21:00)
[2018-03-22] MEDS ORDERED: CHOLECALCIFEROL 1,000 UNIT TAB PO SCH (21:00)
[2018-03-22 22:33] LABS: Hemoglobin A1C 6.1 % (4.0-6.0)
[2018-03-23] MEDS: metroNIDAZOLE-NS PMX 500 MG in SALINE 1 100ML.BAG IVPB SCH ×3 (00:42→19:16)
[2018-03-23] MEDS: MORPHINE SULFATE 2 MG/ML SYRINGE IVP PRN ×6 (00:43→20:23)
[2018-03-23] MEDS: METOCLOPRAMIDE 5 MG/ML 2 ML VIAL IVP PRN (03:33)
[2018-03-23 07:15] LABS: Glucose,Whole Blood 162 mg/dL (75-99)
[2018-03-23] MEDS: ONDANSETRON 4 MG/2 ML VIAL IVP PRN (07:42)
[2018-03-23] MEDS: ALBUTEROL NEBULIZED 2.5 MG/3 ML INHALATION SCH (08:20)
[2018-03-23 08:34] LABS: Albumin 2.7 g/dL (3.5-5.0); Calcium 7.6 mg/dL (8.4-10.2); Potassium 3.7 mmol/L (3.5-5.1); Total Bilirubin 0.2 mg/dL (0.2-1.3); Total Protein 5.5 g/dL (6.3-8.2)
[2018-03-23] MEDS ORDERED: LORATADINE 10 MG TAB PO SCH (09:00)
[2018-03-23] MEDS: INSULIN ASPART 100 UNIT/ML 1 ML 10 ML VIAL SQ SCH ×8 (09:33→21:21)
[2018-03-23] MEDS: GLIMEPIRIDE 4 MG TAB PO SCH ×2 (09:33→18:57)
[2018-03-23 09:46] LABS: Anisocytosis Slight; HCT 40.3 % (34.0-46.0); HGB 11.8 gm/dL (11.4-16.0); Hypochromasia Marked; MCH 25.6 pg (25.0-35.0); MCHC 29.3 g/dL (31.0-37.0); MCV 87.2 fL (80.0-100.0); Platelet Count 403 k/uL (150-450); RBC 4.62 m/uL (3.80-5.40); RDW 16.2 % (11.5-15.5)
[2018-03-23] MEDS: SODIUM CHLORIDE 0.9% 1,000 ML IV SCH (09:47)
[2018-03-23] MEDS: cefTRIAXone IN SWFI 1,000 MG/10 ML SYRINGE IVP SCH (09:51)
[2018-03-23 09:54] LABS: WBC 35.8 k/uL (3.8-10.6)
[2018-03-23 10:01] LABS: HCT 42.3 % (34.0-46.0); HGB 12.3 gm/dL (11.4-16.0); Hypochromasia Marked; MCH 25.1 pg (25.0-35.0); MCHC 29.1 g/dL (31.0-37.0); MCV 86.3 fL (80.0-100.0); Mean Platelet Volume 8.2; Platelet Count 522 k/uL (150-450); RBC 4.91 m/uL (3.80-5.40)
[2018-03-23 10:13] LABS: WBC 38.6 k/uL (3.8-10.6)
[2018-03-23] MEDS ORDERED: MEROPENEM 1 GM in SODIUM CHLORIDE 0.9% 100 ML IVPB SCH (10:15)
[2018-03-23] MEDS: PANTOPRAZOLE 40 MG/10 ML VIAL IVP SCH (10:17)
[2018-03-23] MEDS: LACTATED RINGERS 1,000 ML IV SCH ×2 (10:17→18:26)
[2018-03-23 10:19] LABS: Amylase 71 U/L (30-110); Lipase 18 U/L (23-300)
--- NOTE | 2018-03-23 10:23 | P.PN ---
Progress Note - Text Progress Note Date: 03/23/[address] Bowman. The patient is continuing to have abdominal pain and her leukocytosis is worsening. He is transferring her to the ICU as there is a concern she may be coming septic. I'll order a stat PT, PTT. Get her on for OR as soon as possible.
[2018-03-23 10:43] LABS: Band Neutrophils % 16 %; Lymphocytes # (M) 3.09 k/uL (1.0-4.8); Metamyelocytes # (M) 0.39 k/uL (0); Metamyelocytes % 1 %; Monocytes # (M) 1.54 k/uL (0-1.0); Neutrophils % (M) 72 %; Nucleated Red Blood Cells 0 /100 WBC (0-0); Total Cells Counted 200
[2018-03-23 10:45] LABS: Poikilocytosis (M) Present; Toxic Vacuolation Present
[2018-03-23 10:50] LABS: Band Neutrophils % 12 %; Lymphocytes # (M) 2.86 k/uL (1.0-4.8); Metamyelocytes # (M) 0.36 k/uL (0); Metamyelocytes % 1 %; Monocytes # (M) 2.15 k/uL (0-1.0); Neutrophils % (M) 74 %; Nucleated Red Blood Cells 0 /100 WBC (0-0); Total Cells Counted 200
[2018-03-23 10:52] LABS: Poikilocytosis (M) Present; Target Cells Present; Toxic Vacuolation Present
--- NOTE | 2018-03-23 11:16 | P.CONS ---
History of Present Illness - Reason for Consult Consult date: 03/23/18 dilated CBD Requesting physician: Ramonita Sorenson - History of Present Illness 72-year-old female seen earlier this morning around 9 AM history of A. fib maintained on Eliquis, CAD, CHF, VRE urine, diabetes, non-small cell lung CA with prior left lobectomy, recent CT revealing a right lower lobe mass abutting the pleural space strongly suspicious for bronchogenic carcinoma, severe COPD O2 dependent, constipation. Consult requested for dilated CBD. Admitted with intractable nausea vomiting diarrhea upper abdominal pain 3 days. White count 23.8 presently 38.6. Hemoglobin 12.3. Platelet 522. Lactic acid 7.1. Total bilirubin 0.2. AST 150. ALT 70. AP 122. Lipase 18. BUN 33. Creatinine 1.0. Afebrile. Mildly tachycardic heart rate around 100. Urine trace blood large leukocyte esterase many wbc's in clumps many urine bacteria. CT abdomen liver shows no focal defects. Gallbladder wall thickening. Bile ducts are not dilated. No sign of bowel obstruction. Ultrasound abdomen mixed internal contents within the gallbladder combination of sludge and stones. Gallbladder wall thickened 4 mm. CBD 0.9 mm mucosal lesion not excluded. Presently patient is reporting moderate right upper quadrant pain with a small green emesis in nearby pain. Review of Systems Constitutional: Denies fever, chills, sweats, weight gain, or loss. HEENT: Negative for migraines, blurred vision or loss, earaches, drainage, tinnitus, oral mucosal lesions, dysphagia, or odynophagia. CARDIAC: Negative for chest pain, arrhythmias, or palpitation. RESPIRATORY: Negative for shortness of breath, hemoptysis, cough, or sputum production. GI: See HPI for pertinent findings. : Negative for hematuria, urgency, frequency, polyuria, or dysuria. GYNc: Denies possibility of . Negative vaginal discharge. MUSCULOSKELETAL: Negative for muscle aches, swelling, arthritis, and arthralgias. NEUROLOGIC: Negative for stroke or TIA. ENDOCRINE: Negative for thyroid problems. SKIN: Negative for rash or itching. PSYCHIATRIC: Negative history for depression and anxiety Past Medical History Past Medical History: Atrial Fibrillation, Coronary Artery Disease (CAD), Heart Failure, COPD, Diabetes Mellitus, GERD/Reflux, Hyperlipidemia, Hypertension, Memory Impairment Additional Past Medical History / Comment(s): COPD severe with an FEV1 of 36%, chronic hypoxic respiratory failure, non-small cell lung cancer with a previous left lower lobe resection, chronic atrial fibrillation, hypertension, coronary artery disease, diabetes mellitus, meningitis back in the 70s History of Any Multi-Drug Resistant Organisms: VRE Year Discovered:: 02/07/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 past blood transfusion-no reaction Date of Last Stent Placement:: unk Smoking Status: Former smoker - Past Family History Mother History Unknown: Yes Family Medical History: No Reported History Father Family Medical History: Diabetes Mellitus Medications and Allergies Home Medications Medication Instructions Recorded Confirmed Type Atorvastatin [Lipitor] 40 mg PO HS 11/17/16 03/22/18 History Cholecalciferol [Vitamin D3] 4,000 unit PO HS 11/17/16 03/22/18 History Cyanocobalamin [Vitamin B-12] 500 mcg PO DAILY 11/17/16 03/22/18 History Glimepiride [Amaryl] 4 mg PO AC-BID 11/17/16 03/22/18 History Albuterol Inhaler [Ventolin Hfa 2 puff INHALATION RT-BID 07/22/17 03/22/18 History Inhaler] Loratadine [Claritin] 10 mg PO DAILY 07/22/17 03/22/18 History Apixaban [Eliquis] 5 mg PO BID #60 tab 08/02/17 03/22/18 Rx Pantoprazole Sodium [Protonix] 40 mg PO BID #60 tablet.dr 01/05/18 03/22/18 Rx Ferrous Sulfate [Iron (65 MG 325 mg PO BID tab 02/01/18 03/22/18 Rx Elemental)] Ipratropium-Albuterol Nebulize 3 ml INHALATION RT-QID ampul.neb 02/01/18 Rx [Duoneb 0.5 mg-3 mg/3 ml Soln] Polyethylene Glycol 3350 [Miralax] 17 gm PO DAILY #30 packet 02/03/18 03/22/18 Rx Gabapentin [Neurontin] 800 mg PO Q8H 02/07/18 03/22/18 History Metoprolol Succinate (ER) [Toprol 50 mg PO DAILY #30 tab.er.24h 02/15/18 Rx XL] Furosemide [Lasix] 40 mg PO DAILY tab 02/16/18 03/22/18 Rx Insulin Detemir [Levemir] 18 unit SQ HS syr 02/16/18 03/22/18 Rx Acetaminophen Tab [Tylenol] 500 mg PO Q6HR PRN 03/21/18 03/22/18 History Diltiazem Oral [Cardizem*] 60 mg PO Q8H 03/21/18 03/22/18 History Docusate [Colace] 100 mg PO HS 03/21/18 03/22/18 History Glycerin Adult Suppository 1 supp RECTAL DAILY 03/21/18 03/22/18 History Insulin Aspart [NovoLOG 3 unit SQ ACHS 03/21/18 03/22/18 History (formulary)] Losartan Potassium [Cozaar] 100 mg PO DAILY 03/21/18 03/22/18 History Magnesium Hydroxide [Milk of 2,400 mg PO DAILY PRN 03/21/18 03/22/18 History Magnesia Concentrate] Sennosides-Docusate Sodium 2 tab PO BID 03/21/18 03/22/18 History [Senokot-S] Allergies Allergy/AdvReac Type Severity Reaction Status Date / Time codeine Allergy Unknown Verified 03/22/18 01:21 Physical Exam Vitals: Vital Signs Temp Pulse Pulse Resp BP Pulse Ox 03/23/18 10:09 98.6 F 70 20 118/53 94 L 03/23/18 08:42 100 03/23/18 08:20 100 03/23/18 08:00 98.1 F 83 18 109/50 97 03/23/18 04:00 16 03/23/18 00:00 98.2 F 100 16 149/52 98 03/22/18 20:00 98.7 F 109 H 16 129/54 95 03/22/18 16:00 97 F L 100 16 155/57 93 L 03/22/18 15:51 92 L 03/22/18 12:00 98.7 F 97 16 140/64 92 L 03/22/18 11:38 102 H 03/22/18 11:20 96 Intake and Output 03/22/18 03/23/18 03/23/18 22:59 06:59 14:59 Other: Voiding Method Bedside Commode Bedside Commode Bedside Commode # Voids 2 1 1 General appearance: The patient is alert, visible nausea and pain. Emesis in basin nearby. HET: Head is normocephalic and atraumatic. Pupils are equal and reactive. Oropharynx is clear without lesions. Neck: Supple without lymphadenopathy. Trachea midline. Heart: S1 S2. Regular rate and rhythm. Lungs: No crackles or wheezes are heard. Abdomen: Soft, moderate tenderness right upper quadrant, nondistended with bowel sounds. No peritoneal signs. No palpable organomegaly or masses. Extremities: Normal skin color and turgor. No cyanosis, rash, ulceration, clubbing, or edema. Radial and pedal pulses are 2/4 bilaterally. Neurological: No focal deficits. Strength and sensation are grossly intact. Results CBC & Chem 7: 03/23/18 09:44 03/23/18 07:58 Labs: Abnormal Lab Results - Last 24 Hours (Table) 03/22/18 03/22/18 03/22/18 Range/Units 08:28 11:22 12:05 WBC (3.8-10.6) k/uL MCHC (31.0-37.0) g/dL RDW (11.5-15.5) % Plt Count (150-450) k/uL Neutrophils # (Manual) (1.3-7.7) k/uL Monocytes # (Manual) (0-1.0) k/uL Metamyelocytes # (Man) (0) k/uL Chloride (98-107) mmol/L BUN (7-17) mg/dL Glucose (74-99) mg/dL POC Glucose (mg/dL) 168 H (75-99) mg/dL Hemoglobin A1c 6.1 H (4.0-6.0) % Plasma Lactic Acid [place] (0.7-2.0) mmol/L Calcium (8.4-10.2) mg/dL AST (14-36) U/L ALT (9-52) U/L Total Protein (6.3-8.2) g/dL Albumin (3.5-5.0) g/dL Lipase (23-300) U/L Urine Appearance Turbid H (Clear) Urine Protein 2+ H (Negative) Urine Blood Trace H (Negative) Ur Leukocyte Esterase Large H (Negative) Urine RBC 43 H (0-5) /hpf Urine WBC >182 H (0-5) /hpf Urine WBC Clumps Many H (None) /hpf Ur Squamous Epith Cells 119 H (0-4) /hpf Urine Bacteria Many H (None) /hpf Hyaline Casts 289 H (0-2) /lpf Urine Mucus Many H (None) /hpf 03/22/18 03/22/18 03/23/18 Range/Units 17:29 20:44 07:13 WBC (3.8-10.6) k/uL MCHC (31.0-37.0) g/dL RDW (11.5-15.5) % Plt Count (150-450) k/uL Neutrophils # (Manual) (1.3-7.7) k/uL Monocytes # (Manual) (0-1.0) k/uL Metamyelocytes # (Man) (0) k/uL Chloride (98-107) mmol/L BUN (7-17) mg/dL Glucose (74-99) mg/dL POC Glucose (mg/dL) 178 H 189 H 162 H (75-99) mg/dL Hemoglobin A1c (4.0-6.0) % Plasma Lactic Acid [place] (0.7-2.0) mmol/L Calcium (8.4-10.2) mg/dL AST (14-36) U/L ALT (9-52) U/L Total Protein (6.3-8.2) g/dL Albumin (3.5-5.0) g/dL Lipase (23-300) U/L Urine Appearance (Clear) Urine Protein (Negative) Urine Blood (Negative) Ur Leukocyte Esterase (Negative) Urine RBC (0-5) /hpf Urine WBC (0-5) /hpf Urine WBC Clumps (None) /hpf Ur Squamous Epith Cells (0-4) /hpf Urine Bacteria (None) /hpf Hyaline Casts (0-2) /lpf Urine Mucus (None) /hpf 03/23/18 03/23/18 03/23/18 Range/Units 07:58 07:58 09:44 WBC 35.8 H* 38.6 H* (3.8-10.6) k/uL MCHC 29.3 L 29.1 L (31.0-37.0) g/dL RDW 16.2 H 16.0 H (11.5-15.5) % Plt Count 522 H (150-450) k/uL Neutrophils # (Manual) 33.90 H (1.3-7.7) k/uL Monocytes # (Manual) 1.54 H (0-1.0) k/uL Metamyelocytes # (Man) 0.39 H (0) k/uL Chloride 94 L (98-107) mmol/L BUN 33 H (7-17) mg/dL Glucose 147 H (74-99) mg/dL POC Glucose (mg/dL) (75-99) mg/dL Hemoglobin A1c (4.0-6.0) % Plasma Lactic Acid [place] (0.7-2.0) mmol/L Calcium 7.6 L (8.4-10.2) mg/dL AST 150 H (14-36) U/L ALT 70 H (9-52) U/L Total Protein 5.5 L (6.3-8.2) g/dL Albumin 2.7 L (3.5-5.0) g/dL Lipase (23-300) U/L Urine Appearance (Clear) Urine Protein (Negative) Urine Blood (Negative) Ur Leukocyte Esterase (Negative) Urine RBC (0-5) /hpf Urine WBC (0-5) /hpf Urine WBC Clumps (None) /hpf Ur Squamous Epith Cells (0-4) /hpf Urine Bacteria (None) /hpf Hyaline Casts (0-2) /lpf Urine Mucus (None) /hpf 18 03/23/18 Range/Units 09:44 09:44 WBC (3.8-10.6) k/uL MCHC (31.0-37.0) g/dL RDW (11.5-15.5) % Plt Count (150-450) k/uL Neutrophils # (Manual) (1.3-7.7) k/uL Monocytes # (Manual) (0-1.0) k/uL Metamyelocytes # (Man) (0) k/uL Chloride (98-107) mmol/L BUN (7-17) mg/dL Glucose (74-99) mg/dL POC Glucose (mg/dL) (75-99) mg/dL Hemoglobin A1c (4.0-6.0) % Plasma Lactic Acid Colby 7.1 H* (0.7-2.0) mmol/L Calcium (8.4-10.2) mg/dL AST (14-36) U/L ALT (9-52) U/L Total Protein (6.3-8.2) g/dL Albumin (3.5-5.0) g/dL Lipase 18 L (23-300) U/L Urine Appearance (Clear) Urine Protein (Negative) Urine Blood (Negative) Ur Leukocyte Esterase (Negative) Urine RBC (0-5) /hpf Urine WBC (0-5) /hpf Urine WBC Clumps (None) /hpf Ur Squamous Epith Cells (0-4) /hpf Urine Bacteria (None) /hpf Hyaline Casts (0-2) /lpf Urine Mucus (None) /hpf Microbiology - Last 24 Hours (Table) 03/22/18 11:22 Urine Culture - Preliminary Urine,Clean Catch CT scan - abdomen: report reviewed (Dr. Collins) US - abdomen: report reviewed (Dr. Collins) Assessment and Plan Assessment: Impression: 1. SIRS possible sepsis acute right upper quadrant abdominal pain nausea vomiting profound leukocytosis lactic acid with elevated transaminases cholelithiasis acute cholecystitis. 2. Dilated CBD 0.9 cm per US mucosal lesion could not be excluded however transaminitis most likely reflective of acute cholecystitis, choledocholithiasis felt to be less likely but not entirely excluded. 3. History of non-small cell lung carcinoma with recent CT imaging reporting a right lower lobe mass abutting the pleural space strongly suspicious for bronchiogenic carcinoma under investigation in the outpatient setting. 4. History of atrial fibrillation maintained on Eliquis. 5. COPD. 6. Possibel UTI. Plan: 1. General surgery evaluating. MRCP was discussed however considering patient has elevated lactic acid and leukocytosis we'll hold off on MRCP imaging for now. Possible OR today awaiting surgical evaluation. Anticoagulation on hold. IV antibiotics. Nothing by mouth. We'll continue to follow with you. Thank you for this kind referral and the opportunity to participate in the care of your patient. This consultation was discussed with Dr. Collins. The impression and plan of care have been directed as dictated.
[2018-03-23 11:23] LABS: Glucose,Whole Blood 129 mg/dL (75-99)
--- NOTE | 2018-03-23 11:30 | P.PN ---
Subjective Mrs. Tavarez is a pleasant 72-year-old female past medical history significant for chronic atrial fibrillation on half-way anticoagulation, diastolic heart failure currently euvolemic, diabetes mellitus, COPD, hypertension, dyslipidemia, non-small cell lung cancer with left lower lobe resection and coronary artery disease with 1-stent many years ago of unclear details and no records. She follows with Dr. Jean in the office. We have been asked to see her in consultation for epigastric pain. She complains of significant abdominal burning, nausea and pain. Her abdomen is tender to light palpitation. KUB xray is negative for an acute abdomen, CT abdomen/pelvis shows no renal obstruction, multiple smal renal calcifications bilaterally, large bowel fluid consistent with diarrhea and some gallbladder wall thickening. She denies symptoms of chest pain, shortness of breath, diaphoresis, palpitations or dizziness. She was recently admitted in the hospital with UTI and weakness. During that hospitalization telemetry tracings showed she had a small pause of 2.5-3 seconds and her toprol was decreased. EKG on arrival reveals atrial fibrillation with diffuse ST depression, this is noted on old EKG with more pronounced this time. Possibly related to faster rate. Laboratory data reviewed, WBC 23.8, hemoglobin 12.5, platelets 501, sodium 136, potassium 3.5, creatinine 0.9, cardiac enzymes normal 3, LDL 48, HDL 33. Current cardiac medications include Toprol 50 mg daily, losartan 100 mg daily, Lasix 40 mg daily, Cardizem 60 mg 3 times a day, Eliquis 5 mg BID and atrovastatin 40 mg daily. She also takes albuterol, Colace, iron supplementation, Neurontin, Amaryl, insulin, DuoNeb, Claritin, milk of magnesia for protonix, MiraLAX and Senokot. Most recent echocardiogram performed 01/2018 reveals preserved LV systolic function with EF 55-60%, mildly enlarged right ventricle and mildly dilated left atrium. 03/23/2018 Mrs. Tavarez is seen and examined today doing a breathing treatment. She denies symptoms of chest pain or shortness of breath. Ultrasound of gallbladder reveals Internal contents within the gallbladder may represent a combination of sludge and stones. A nonmobile area of echogenicity measuring 1.2 cm cut represent polypoid appearance stone, sludge. Letter wall is thickened correlate for possible cholecystitis dilated common bile duct. Surgery has seen the patient can consultation yesterday and recommending cholecystectomy. Eliquis has been held last night and she didn't get her morning dose yesterday. Echocardiogram performed yesterday reveals preserved left ventricular systolic function with ejection fraction 55-60%, severely enlarged right ventricle, severely dilated left atrium, mild MR and mild TR. Blood pressure 118/53 heart rate 70 afebrile and maintaining oxygen saturation on nasal cannula. She is in chronic persistent atrial fibrillation with controlled ventricular response. Laboratory data reviewed, WBC 38.6, hemoglobin 12.3, platelets 522, sodium 137, potassium 3.7, creatinine 1.01, lactic acid 7.1, total bilirubin 0.2, AST 150, ALT 70. Objective - Vital Signs Vital signs: Vital Signs Temp 98.6 F 03/23/18 10:09 Pulse 70 03/23/18 10:09 Resp 20 03/23/18 10:09 BP 118/53 03/23/18 10:09 Pulse Ox 94 L 03/23/18 10:09 Intake & Output 03/22/18 03/23/18 03/23/18 18:59 06:59 18:59 Intake Total 50 Output Total 200 Balance -150 Intake: Intake, IV Titration 50 Amount Sodium Chloride 0.9% 1, 50 000 ml @ 50 mls/hr IV . Q20H [facility] Rx#:[id number] Output: Emesis 200 Other: Voiding Method Bedside Commode Bedside Commode Bedside Commode # Voids 1 1 1 # Emeses 1 - Exam GENERAL: Well-appearing, well-nourished and in no acute distress. NECK: Supple without JVD or thyromegaly. LUNGS: Breath sounds clear to auscultation bilaterally. Respiration equal and unlabored. No wheezes, rales or rhonchi. HEART: Irregular rate and rhythm without murmurs, rubs or gallops. S1 and S2 heard. EXTREMITIES: Normal range of motion, no edema. No clubbing or cyanosis. Peripheral pulses intact and strong. - Labs CBC & Chem 7: 03/23/18 09:44 03/23/18 07:58 Labs: Abnormal Lab Results - Last 24 Hours (Table) 03/22/18 03/22/18 03/22/18 Range/Units 08:28 11:22 12:05 WBC (3.8-10.6) k/uL MCHC (31.0-37.0) g/dL RDW (11.5-15.5) % Plt Count (150-450) k/uL Neutrophils # (Manual) (1.3-7.7) k/uL Monocytes # (Manual) (0-1.0) k/uL Metamyelocytes # (Man) (0) k/uL Chloride (98-107) mmol/L BUN (7-17) mg/dL Glucose (74-99) mg/dL POC Glucose (mg/dL) 168 H (75-99) mg/dL Hemoglobin A1c 6.1 H (4.0-6.0) % Plasma Lactic Acid Colby (0.7-2.0) mmol/L Calcium (8.4-10.2) mg/dL AST (14-36) U/L ALT (9-52) U/L Total Protein (6.3-8.2) g/dL Albumin (3.5-5.0) g/dL Lipase (23-300) U/L Urine Appearance Turbid H (Clear) Urine Protein 2+ H (Negative) Urine Blood Trace H (Negative) Ur Leukocyte Esterase Large H (Negative) Urine RBC 43 H (0-5) /hpf Urine WBC >182 H (0-5) /hpf Urine WBC Clumps Many H (None) /hpf Ur Squamous Epith Cells 119 H (0-4) /hpf Urine Bacteria Many H (None) /hpf Hyaline Casts 289 H (0-2) /lpf Urine Mucus Many H (None) /hpf 18 03/22/18 03/23/18 Range/Units 17:29 20:44 07:13 WBC (3.8-10.6) k/uL MCHC (31.0-37.0) g/dL RDW (11.5-15.5) % Plt Count (150-450) k/uL Neutrophils # (Manual) (1.3-7.7) k/uL Monocytes # (Manual) (0-1.0) k/uL Metamyelocytes # (Man) (0) k/uL Chloride (98-107) mmol/L BUN (7-17) mg/dL Glucose (74-99) mg/dL POC Glucose (mg/dL) 178 H 189 H 162 H (75-99) mg/dL Hemoglobin A1c (4.0-6.0) % Plasma Lactic Acid Colby (0.7-2.0) mmol/L Calcium (8.4-10.2) mg/dL AST (14-36) U/L ALT (9-52) U/L Total Protein (6.3-8.2) g/dL Albumin (3.5-5.0) g/dL Lipase (23-300) U/L Urine Appearance (Clear) Urine Protein (Negative) Urine Blood (Negative) Ur Leukocyte Esterase (Negative) Urine RBC (0-5) /hpf Urine WBC (0-5) /hpf Urine WBC Clumps (None) /hpf Ur Squamous Epith Cells (0-4) /hpf Urine Bacteria (None) /hpf Hyaline Casts (0-2) /lpf Urine Mucus (None) /hpf 03/23/18 03/23/18 03/23/18 Range/Units 07:58 07:58 09:44 WBC 35.8 H* 38.6 H* (3.8-10.6) k/uL MCHC 29.3 L 29.1 L (31.0-37.0) g/dL RDW 16.2 H 16.0 H (11.5-15.5) % Plt Count 522 H (150-450) k/uL Neutrophils # (Manual) 30.70 H 33.90 H (1.3-7.7) k/uL Monocytes # (Manual) 2.15 H 1.54 H (0-1.0) k/uL Metamyelocytes # (Man) 0.36 H 0.39 H (0) k/uL Chloride 94 L (98-107) mmol/L BUN 33 H (7-17) mg/dL Glucose 147 H (74-99) mg/dL POC Glucose (mg/dL) (75-99) mg/dL Hemoglobin A1c (4.0-6.0) % Plasma Lactic Acid Colby (0.7-2.0) mmol/L Calcium 7.6 L (8.4-10.2) mg/dL AST 150 H (14-36) U/L ALT 70 H (9-52) U/L Total Protein 5.5 L (6.3-8.2) g/dL Albumin 2.7 L (3.5-5.0) g/dL Lipase (23-300) U/L Urine Appearance (Clear) Urine Protein (Negative) Urine Blood (Negative) Ur Leukocyte Esterase (Negative) Urine RBC (0-5) /hpf Urine WBC (0-5) /hpf Urine WBC Clumps (None) /hpf Ur Squamous Epith Cells (0-4) /hpf Urine Bacteria (None) /hpf Hyaline Casts (0-2) /lpf Urine Mucus (None) /hpf 03/23/18 03/23/18 Range/Units 09:44 09:44 WBC (3.8-10.6) k/uL MCHC (31.0-37.0) g/dL RDW (11.5-15.5) % Plt Count (150-450) k/uL Neutrophils # (Manual) (1.3-7.7) k/uL Monocytes # (Manual) (0-1.0) k/uL Metamyelocytes # (Man) (0) k/uL Chloride (98-107) mmol/L BUN (7-17) mg/dL Glucose (74-99) mg/dL POC Glucose (mg/dL) (75-99) mg/dL Hemoglobin A1c (4.0-6.0) % Plasma Lactic Acid Colby 7.1 H* (0.7-2.0) mmol/L Calcium (8.4-10.2) mg/dL AST (14-36) U/L ALT (9-52) U/L Total Protein (6.3-8.2) g/dL Albumin (3.5-5.0) g/dL Lipase 18 L (23-300) U/L Urine Appearance (Clear) Urine Protein (Negative) Urine Blood (Negative) Ur Leukocyte Esterase (Negative) Urine RBC (0-5) /hpf Urine WBC (0-5) /hpf Urine WBC Clumps (None) /hpf Ur Squamous Epith Cells (0-4) /hpf Urine Bacteria (None) /hpf Hyaline Casts (0-2) /lpf Urine Mucus (None) /hpf Microbiology - Last 24 Hours (Table) 03/22/18 11:22 Urine Culture - Preliminary Urine,Clean Catch Assessment and Plan Assessment: ASSESSMENT 1. Abdominal pain and tenderness. Acute cholecystitis. 2. Chronic persistent atrial fibrillation on half-way anti-coagulation with controlled ventricular response 3. History of diastolic heart failure, currently euvolemic 4. Hypertension 5. History of previous coronary artery disease, details unavailable 6. COPD 7. Diabetes mellitus 8. Obesity 9. Leukocytosis 10. Lactic acidosis PLAN Case has been discussed with Dr. Alvares and she is recommending surgical intervention. Eliquis has been held last night. She also didn't get her AM dose yesterday. From anti-coagulation standpoint she can proceed with surgery today. Continue with her metoprolol and cardizem to control her heart rate. Resume eliquis as soon as is possible post-operatively for embolic stroke prevention. We will continue to follow closely in the post-operative phase. Nurse Practitioner note has been reviewed, I agree with a documented findings and plan of care. Patient was seen and examined.
--- NOTE | 2018-03-23 11:48 | P.CNPUL ---
History of Present Illness Consult date: 03/23/18 Requesting physician: Ramonita Sorenson Reason for consult: dyspnea Chief complaint: Abdominal pain, nausea, vomiting History of present illness: This is a very pleasant 72-year-old female patient with you follows with Dr. Chery as her primary care physician. She has a history of atrial fibrillation anticoagulated with Eliquis, coronary disease with previous stent placement, diastolic congestive heart failure, diabetes Lopez, hyperlipidemia, hypertension, meningitis back in 1970s. She also has a history of non-small cell lung cancer with previous left lower lobe resection in 2003 and the most recent computed tomography scan revealed a new right lower lobe mass abutting the pleural surface strongly suspicious for bronchogenic carcinoma. She has a significant history of oxygen dependent chronic obstructive pulmonary disease. FEV1 value 34% of predicted. She follows with Dr. Arguello in our office for the same. The location of the mass was difficult to access due to being just behind a rib. Dr. Arguello felt the foot or to grow in size and needle biopsy could be considered. Possible radiation treatment/CyberKnife may be one treatment modality. He was following her in the outpatient setting. She presented here on 03/21/2018 with complaints of nausea vomiting and diarrhea. A KUB revealed a nonacute abdomen. Computed tomography scan of the abdomen revealed no renal obstruction. There are multiple small bilateral renal calcifications. There is large bowel fluid consistent with diarrhea. No free air. Ultrasound of the gallbladder revealed a combination of sludge and stones and question of cholecystitis. The patient had been seen by surgical services and was planning for cholecystectomy months the patient has been off her Eliquis. We were consulted today as the patient had developed significant leukocytosis currently 38.6 white count. Lactic acid 7.1. She is currently afebrile though appears quite ill. Currently hemodynamically stable. Review of Systems Constitutional: Reports chills, Reports poor appetite, Reports weakness Eyes: denies blurred vision, denies decreased vision Ears: deny: decreased hearing Ears, nose, mouth and throat: Denies headache, Denies sore throat Cardiovascular: Reports irregular heart beat, Reports shortness of breath Respiratory: Reports dyspnea, Reports home oxygen Gastrointestinal: Reports abdominal pain, Reports diarrhea, Reports nausea, Reports vomiting Genitourinary: Denies dysuria, Denies hematuria Musculoskeletal: Reports muscle weakness Neurological: Reports weakness Psychiatric: Reports anxiety Endocrine: Reports fatigue Hematologic/Lymphatic: Reports as per HPI Allergic/Immunologic: Reports as per HPI Past Medical History Past Medical History: Atrial Fibrillation, Coronary Artery Disease (CAD), Heart Failure, COPD, Diabetes Mellitus, GERD/Reflux, Hyperlipidemia, Hypertension, Memory Impairment Additional Past Medical History / Comment(s): COPD severe with an FEV1 of 36%, chronic hypoxic respiratory failure, non-small cell lung cancer with a previous left lower lobe resection, chronic atrial fibrillation, hypertension, coronary artery disease, diabetes mellitus, meningitis back in the 70s History of Any Multi-Drug Resistant Organisms: VRE Date of last positivie culture/infection: 02/07/18 MDRO Source:: VRE URINE Past Surgical History: Heart Catheterization With Stent, Tubal Ligation Additional Past Surgical History / Comment(s): Left lower lobe lung removed, right shoulder rotator cuff.egd w/ bx Past Anesthesia/Blood Transfusion Reactions: No Reported Reaction Additional Past Anesthesia/Blood Transfusion Reaction / Comment(s): Claustrophobia. past blood transfusion-no reaction Date of Last Stent Placement:: unk Smoking Status: Former smoker - Past Family History Mother History Unknown: Yes Family Medical History: No Reported History Father Family Medical History: Diabetes Mellitus Medications and Allergies Home Medications Medication Instructions Recorded Confirmed Type Atorvastatin [Lipitor] 40 mg PO HS 11/17/16 03/22/18 History Cholecalciferol [Vitamin D3] 4,000 unit PO HS 11/17/16 03/22/18 History Cyanocobalamin [Vitamin B-12] 500 mcg PO DAILY 11/17/16 03/22/18 History Glimepiride [Amaryl] 4 mg PO AC-BID 11/17/16 03/22/18 History Albuterol Inhaler [Ventolin Hfa 2 puff INHALATION RT-BID 07/22/17 03/22/18 History Inhaler] Loratadine [Claritin] 10 mg PO DAILY 07/22/17 03/22/18 History Apixaban [Eliquis] 5 mg PO BID #60 tab 08/02/17 03/22/18 Rx Pantoprazole Sodium [Protonix] 40 mg PO BID #60 tablet. 01/05/18 03/22/18 Rx Ferrous Sulfate [Iron (65 MG 325 mg PO BID tab 02/01/18 03/22/18 Rx Elemental)] Ipratropium-Albuterol Nebulize 3 ml INHALATION RT-QID ampul.neb 02/01/18 Rx [Duoneb 0.5 mg-3 mg/3 ml Soln] Polyethylene Glycol 3350 [Miralax] 17 gm PO DAILY #30 packet 02/03/18 03/22/18 Rx Gabapentin [Neurontin] 800 mg PO Q8H 02/07/18 03/22/18 History Metoprolol Succinate (ER) [Toprol 50 mg PO DAILY #30 tab.er.24h 02/15/18 Rx XL] Furosemide [Lasix] 40 mg PO DAILY tab 02/16/18 03/22/18 Rx Insulin Detemir [Levemir] 18 unit SQ HS syr 02/16/18 03/22/18 Rx Acetaminophen Tab [Tylenol] 500 mg PO Q6HR PRN 03/21/18 03/22/18 History Diltiazem Oral [Cardizem*] 60 mg PO Q8H 03/21/18 03/22/18 History Docusate [Colace] 100 mg PO HS 03/21/18 03/22/18 History Glycerin Adult Suppository 1 supp RECTAL DAILY 03/21/18 03/22/18 History Insulin Aspart [NovoLOG 3 unit SQ ACHS 03/21/18 03/22/18 History (formulary)] Losartan Potassium [Cozaar] 100 mg PO DAILY 03/21/18 03/22/18 History Magnesium Hydroxide [Milk of 2,400 mg PO DAILY PRN 03/21/18 03/22/18 History Magnesia Concentrate] Sennosides-Docusate Sodium 2 tab PO BID 03/21/18 03/22/18 History [Senokot-S] Allergies Allergy/AdvReac Type Severity Reaction Status Date / Time codeine Allergy Unknown Verified 03/22/18 01:21 Physical Exam Vitals: Vital Signs Temp Pulse Pulse Resp BP Pulse Ox 03/23/18 10:09 98.6 F 70 20 118/53 94 L 03/23/18 08:42 100 03/23/18 08:20 100 03/23/18 08:00 98.1 F 83 18 109/50 97 03/23/18 04:00 16 03/23/18 00:00 98.2 F 100 16 149/52 98 03/22/18 20:00 98.7 F 109 H 16 129/54 95 03/22/18 16:00 97 F L 100 16 155/57 93 L 03/22/18 15:51 92 L 03/22/18 12:00 98.7 F 97 16 140/64 92 L 03/22/18 11:38 102 H Intake and Output 03/22/18 03/23/18 03/23/18 22:59 06:59 14:59 Other: Voiding Method Bedside Commode Bedside Commode Bedside Commode # Voids 2 1 1 GENERAL EXAM: Alert, weak, pale. HEAD: Normocephalic. EYES: Normal reaction of pupils, equal size. NOSE: Clear with pink turbinates. THROAT: No erythema or exudates. NECK: No masses, no JVD. CHEST: No chest wall deformity. LUNGS: Equal air entry with no crackles, wheeze, rhonchi or dullness. Diminished left lung base CVS: S1 and S2 normal with no audible murmur, irregular rhythm. ABDOMEN: Right upper quadrant pain radiating across the abdomen, guarding. SPINE: No scoliosis or deformity SKIN: No rashes CENTRAL NERVOUS SYSTEM: No focal deficits, tone is normal in all 4 extremities. EXTREMITIES: There is no peripheral edema. No clubbing, no cyanosis. Peripheral pulses are intact. Results - Laboratory Findings CBC and BMP: 03/23/18 09:44 03/23/18 07:58 Abnormal lab findings: Abnormal Labs 03/21/18 03/21/18 03/21/18 20:04 20:04 20:07 WBC 23.8 H MCHC 30.0 L RDW 16.6 H Plt Count 501 H Neutrophils # 20.1 H Neutrophils # (Manual) Monocytes # (Manual) Metamyelocytes # (Man) Sodium 136 L Chloride 92 L BUN Glucose 171 H POC Glucose (mg/dL) Hemoglobin A1c Plasma Lactic Acid Colby Calcium 8.2 L AST ALT Total Creatine Kinase 29 L Total Protein 6.2 L Albumin 3.3 L HDL Cholesterol Lipase Urine Appearance Urine Protein Urine Blood Ur Leukocyte Esterase Urine RBC Urine WBC Urine WBC Clumps Ur Squamous Epith Cells Urine Bacteria Hyaline Casts Urine Mucus 03/22/18 03/22/18 03/22/18 01:44 01:44 06:39 WBC MCHC RDW Plt Count Neutrophils # Neutrophils # (Manual) Monocytes # (Manual) Metamyelocytes # (Man) Sodium Chloride BUN Glucose POC Glucose (mg/dL) 131 H Hemoglobin A1c Plasma Lactic Acid Colby Calcium AST ALT Total Creatine Kinase 26 L Total Protein Albumin HDL Cholesterol 33 L Lipase Urine Appearance Urine Protein Urine Blood Ur Leukocyte Esterase Urine RBC Urine WBC Urine WBC Clumps Ur Squamous Epith Cells Urine Bacteria Hyaline Casts Urine Mucus 03/22/18 03/22/18 03/22/18 08:28 08:28 11:22 WBC MCHC RDW Plt Count Neutrophils # Neutrophils # (Manual) Monocytes # (Manual) Metamyelocytes # (Man) Sodium Chloride BUN Glucose POC Glucose (mg/dL) Hemoglobin A1c 6.1 H Plasma Lactic Acid Colby Calcium AST ALT Total Creatine Kinase 28 L Total Protein Albumin HDL Cholesterol Lipase Urine Appearance Turbid H Urine Protein 2+ H Urine Blood Trace H Ur Leukocyte Esterase Large H Urine RBC 43 H Urine WBC >182 H Urine WBC Clumps Many H Ur Squamous Epith Cells 119 H Urine Bacteria Many H Hyaline Casts 289 H Urine Mucus Many H 03/22/18 03/22/18 03/22/18 12:05 17:29 20:44 WBC MCHC RDW Plt Count Neutrophils # Neutrophils # (Manual) Monocytes # (Manual) Metamyelocytes # (Man) Sodium Chloride BUN Glucose POC Glucose (mg/dL) 168 H 178 H 189 H Hemoglobin A1c Plasma Lactic Acid Colby Calcium AST ALT Total Creatine Kinase Total Protein Albumin HDL Cholesterol Lipase Urine Appearance Urine Protein Urine Blood Ur Leukocyte Esterase Urine RBC Urine WBC Urine WBC Clumps Ur Squamous Epith Cells Urine Bacteria Hyaline Casts Urine Mucus 03/23/18 03/23/18 03/23/18 07:13 07:58 07:58 WBC 35.8 H* MCHC 29.3 L RDW 16.2 H Plt Count Neutrophils # Neutrophils # (Manual) 30.70 H Monocytes # (Manual) 2.15 H Metamyelocytes # (Man) 0.36 H Sodium Chloride 94 L BUN 33 H Glucose 147 H POC Glucose (mg/dL) 162 H Hemoglobin A1c Plasma Lactic Acid Colby Calcium 7.6 L AST 150 H ALT 70 H Total Creatine Kinase Total Protein 5.5 L Albumin 2.7 L HDL Cholesterol Lipase Urine Appearance Urine Protein Urine Blood Ur Leukocyte Esterase Urine RBC Urine WBC Urine WBC Clumps Ur Squamous Epith Cells Urine Bacteria Hyaline Casts Urine Mucus 03/23/18 03/23/18 03/23/18 09:44 09:44 09:44 WBC 38.6 H* MCHC 29.1 L RDW 16.0 H Plt Count 522 H Neutrophils # Neutrophils # (Manual) 33.90 H Monocytes # (Manual) 1.54 H Metamyelocytes # (Man) 0.39 H Sodium Chloride BUN Glucose POC Glucose (mg/dL) Hemoglobin A1c Plasma Lactic Acid Colby 7.1 H* Calcium AST ALT Total Creatine Kinase Total Protein Albumin HDL Cholesterol Lipase 18 L Urine Appearance Urine Protein Urine Blood Ur Leukocyte Esterase Urine RBC Urine WBC Urine WBC Clumps Ur Squamous Epith Cells Urine Bacteria Hyaline Casts Urine Mucus Assessment and Plan Assessment: Impression: #1 Sepsis with lactic acidosis secondary to cholecystitis. #2 Lactic acidosis, 7.1. #3 Leukocytosis secondary to above, 38.6. #4 Chronic obstructive pulmonary disease, oxygen dependent, FEV1 value 34% of predicted. #5 History of non-small cell lung cancer with previous left lower lobectomy in 2003. #6 Recent computed tomography scan revealing a right lower lobe mass abutting the pleural surface strongly suspicious for bronchogenic carcinoma. Being followed in the outpatient setting. #7 Atrial fibrillation, anticoagulated with Eliquis. #8 Pulmonary hypertension. #9 Diastolic congestive heart failure. #10 Diabetes mellitus. #11 Hyperlipidemia. #12 Hypertension. #13 History of meningitis. Plan: The patient was seen and evaluated by Dr. Bowman. The patient is appearing quite septic and will be transferred to the intensive care unit. She'll receive fluid resuscitation and a lactated Ringer's at 150 miles per hour. He did speak with Dr. Alvares regarding the need for cholecystectomy. She has been off her Eliquis since the . She is currently on meropenem and Flagyl. We will continue to follow and make further recommendations based on her clinical status. I, the cosigning physician, performed a history & physical examination of the patient. Lungs sounds are clear diminished in the left lung base. Maintaining good O2 saturations in the 90s on 2 L/m per nasal cannula. I discussed the assessment and plan of care with my nurse practitioner, Juany Nielsen. I attest to the above note as dictated by her. Time with Patient: Greater than 30
[2018-03-23] MEDS: FERROUS SULFATE 325 MG TAB PO SCH (12:09)
[2018-03-23] MEDS: GABAPENTIN 400 MG CAP PO SCH ×2 (12:09→18:57)
[2018-03-23] MEDS: DILTIAZEM ORAL 60 MG TAB PO SCH ×2 (12:09→18:56)
[2018-03-23] MEDS: SUCRALFATE 1 GM TAB PO SCH ×3 (12:09→18:57)
[2018-03-23] MEDS: CYANOCOBALAMIN 500 MCG TAB PO SCH (12:09)
[2018-03-23 12:23] LABS: INR 1.3 (<1.2); Partial Thromboplastin Time 26.3 sec (22.0-30.0); Prothrombin Time 12.6 sec (9.0-12.0)
--- NOTE | 2018-03-23 13:09 | P.PN ---
Subjective Progress Note Date: 03/23/18 This is a 72-year-old female with a past medical history of atrial fibrillation , coronary artery disease, congestive heart failure, COPD, diabetes mellitus, hyperlipidemia, hypertension, VRE in the urine. Patient presents to the emergency room with complaints of vomiting and diarrhea over the last 2 days. Patient also reporting a burning sensation in her stomach that has been ongoing since December. She takes Protonix for this. Patient reported that her stools were black. But she does take iron at home. She does usually have some issues with constipation in the past. And was supposed to have a colonoscopy outpatient. However, patient now reporting that she was told that she is too weak to proceed with colonoscopy. Stool for C. diff was negative. White count was elevated at 23.8 computed tomography scan of the abdomen multiple small bilateral renal calcifications. Large bowel fluid consistent with diarrhea. No free air. Dense pleural and pulmonary calcification in the left lower lobe is stable. And consistent with scarring. Stable sub-pleural nodular density in the lateral right lower lobe. CAT scan had also shown some gallbladder wall thickening. LFTs are normal. Amylase and lipase are normal. Surgical service has been consulted. Patient also had EKG changes with ST depression. Cardiology was consulted. Cardiology reported that the diffuse ST depression was noted on old EKG and more pronounced this time likely related to a faster rate. Patient denies any chest pain or shortness of breath. Denies any burning with urination or frequency or urgency. Patient does report dark or watery stools. And also reports a few scant episodes of blood in her vomit. Patient did have one emesis this morning that was mostly bile. And last stool was in the ER last night. 03/23/2018 Patient is seen at bedside having severe pain. Patient will be transferred to the ICU. will check lactic acid and repeat CBC, Dr. Bowman consulted for critical care management and for history of non-small cell lung Cancer with a previous left lower lobe resection. Plan for possible lap or open pepper on or Wednesday per Dr. Alvares. Objective - Vital Signs Vital signs: Vital Signs Temp 98.6 F 03/23/18 10:09 Pulse 70 03/23/18 10:09 Resp 20 03/23/18 10:09 BP 118/53 03/23/18 10:09 Pulse Ox 94 L 03/23/18 10:09 Intake & Output 03/22/18 03/23/18 03/23/18 18:59 06:59 18:59 Intake Total 50 Output Total 200 Balance -150 Intake: Intake, IV Titration 50 Amount Sodium Chloride 0.9% 1, 50 000 ml @ 50 mls/hr IV . [facility] Rx#:[id number] Output: Emesis 200 Other: Voiding Method Bedside Commode Bedside Commode Bedside Commode # Voids 1 1 1 # Emeses 1 - Exam Head normocephalic Neck supple Lungs a few scattered wheezes Heart regular rate and rhythm S1-S2, no rub or gallop Abdomen is soft epigastric tenderness nondistended positive bowel sounds no hepatosplenomegaly Extremities no edema Neuro alert and orientated to 3 - Labs CBC & Chem 7: 03/23/18 09:44 03/23/18 07:58 Labs: Abnormal Lab Results - Last 24 Hours (Table) 03/22/18 03/22/18 03/22/18 Range/Units 08:28 11:22 12:05 WBC (3.8-10.6) k/uL MCHC (31.0-37.0) g/dL RDW (11.5-15.5) % Plt Count (150-450) k/uL Neutrophils # (Manual) (1.3-7.7) k/uL Monocytes # (Manual) (0-1.0) k/uL Metamyelocytes # (Man) (0) k/uL Chloride (98-107) mmol/L BUN (7-17) mg/dL Glucose (74-99) mg/dL POC Glucose (mg/dL) 168 H (75-99) mg/dL Hemoglobin A1c 6.1 H (4.0-6.0) % Plasma Lactic Acid Colby (0.7-2.0) mmol/L Calcium (8.4-10.2) mg/dL AST (14-36) U/L ALT (9-52) U/L Total Protein (6.3-8.2) g/dL Albumin (3.5-5.0) g/dL Lipase (23-300) U/L Urine Appearance Turbid H (Clear) Urine Protein 2+ H (Negative) Urine Blood Trace H (Negative) Ur Leukocyte Esterase Large H (Negative) Urine RBC 43 H (0-5) /hpf Urine WBC >182 H (0-5) /hpf Urine WBC Clumps Many H (None) /hpf Ur Squamous Epith Cells 119 H (0-4) /hpf Urine Bacteria Many H (None) /hpf Hyaline Casts 289 H (0-2) /lpf Urine Mucus Many H (None) /hpf 03/22/18 03/22/18 03/23/18 Range/Units 17:29 20:44 07:13 WBC (3.8-10.6) k/uL MCHC (31.0-37.0) g/dL RDW (11.5-15.5) % Plt Count (150-450) k/uL Neutrophils # (Manual) (1.3-7.7) k/uL Monocytes # (Manual) (0-1.0) k/uL Metamyelocytes # (Man) (0) k/uL Chloride (98-107) mmol/L BUN (7-17) mg/dL Glucose (74-99) mg/dL POC Glucose (mg/dL) 178 H 189 H 162 H (75-99) mg/dL Hemoglobin A1c (4.0-6.0) % Plasma Lactic Acid Colby (0.7-2.0) mmol/L Calcium (8.4-10.2) mg/dL AST (14-36) U/L ALT (9-52) U/L Total Protein (6.3-8.2) g/dL Albumin (3.5-5.0) g/dL Lipase (23-300) U/L Urine Appearance (Clear) Urine Protein (Negative) Urine Blood (Negative) Ur Leukocyte Esterase (Negative) Urine RBC (0-5) /hpf Urine WBC (0-5) /hpf Urine WBC Clumps (None) /hpf Ur Squamous Epith Cells (0-4) /hpf Urine Bacteria (None) /hpf Hyaline Casts (0-2) /lpf Urine Mucus (None) /hpf 03/23/18 03/23/18 03/23/18 Range/Units 07:58 07:58 09:44 WBC 35.8 H* 38.6 H* (3.8-10.6) k/uL MCHC 29.3 L 29.1 L (31.0-37.0) g/dL RDW 16.2 H 16.0 H (11.5-15.5) % Plt Count 522 H (150-450) k/uL Neutrophils # (Manual) 30.70 H 33.90 H (1.3-7.7) k/uL Monocytes # (Manual) 2.15 H 1.54 H (0-1.0) k/uL Metamyelocytes # (Man) 0.36 H 0.39 H (0) k/uL Chloride 94 L (98-107) mmol/L BUN 33 H (7-17) mg/dL Glucose 147 H (74-99) mg/dL POC Glucose (mg/dL) (75-99) mg/dL Hemoglobin A1c (4.0-6.0) % Plasma Lactic Acid Colby (0.7-2.0) mmol/L Calcium 7.6 L (8.4-10.2) mg/dL AST 150 H (14-36) U/L ALT 70 H (9-52) U/L Total Protein 5.5 L (6.3-8.2) g/dL Albumin 2.7 L (3.5-5.0) g/dL Lipase (23-300) U/L Urine Appearance (Clear) Urine Protein (Negative) Urine Blood (Negative) Ur Leukocyte Esterase (Negative) Urine RBC (0-5) /hpf Urine WBC (0-5) /hpf Urine WBC Clumps (None) /hpf Ur Squamous Epith Cells (0-4) /hpf Urine Bacteria (None) /hpf Hyaline Casts (0-2) /lpf Urine Mucus (None) /hpf 18 03/23/18 Range/Units 09:44 09:44 WBC (3.8-10.6) k/uL MCHC (31.0-37.0) g/dL RDW (11.5-15.5) % Plt Count (150-450) k/uL Neutrophils # (Manual) (1.3-7.7) k/uL Monocytes # (Manual) (0-1.0) k/uL Metamyelocytes # (Man) (0) k/uL Chloride (98-107) mmol/L BUN (7-17) mg/dL Glucose (74-99) mg/dL POC Glucose (mg/dL) (75-99) mg/dL Hemoglobin A1c (4.0-6.0) % Plasma Lactic Acid Colby 7.1 H* (0.7-2.0) mmol/L Calcium (8.4-10.2) mg/dL AST (14-36) U/L ALT (9-52) U/L Total Protein (6.3-8.2) g/dL Albumin (3.5-5.0) g/dL Lipase 18 L (23-300) U/L Urine Appearance (Clear) Urine Protein (Negative) Urine Blood (Negative) Ur Leukocyte Esterase (Negative) Urine RBC (0-5) /hpf Urine WBC (0-5) /hpf Urine WBC Clumps (None) /hpf Ur Squamous Epith Cells (0-4) /hpf Urine Bacteria (None) /hpf Hyaline Casts (0-2) /lpf Urine Mucus (None) /hpf Microbiology - Last 24 Hours (Table) 03/22/18 11:22 Urine Culture - Preliminary Urine,Clean Catch Assessment and Plan Assessment: 1. Abdominal pain with vomiting and diarrhea: Computed tomography scan had showed large bowel fluid consistent with diarrhea no free air. Also had shown probable gallbladder wall thickening. Agree with abdominal ultrasound. LFTs are normal. Amylase lipase normal. Surgery has been consulted. Continue with IV fluid hydration. Stool for C. diff negative. Continue IV Protonix 2. Diffuse ST depression on EKG. Patient evaluated by cardiology service and felt this is also noted on her old EKGs and likely more pronounced due to faster heart rate. Cardiology has signed off. They've also ordered an echocardiogram. 3. History of COPD: Stable continue nebulizer treatments 4. History of chronic persistent atrial fibrillation with controlled rate. Stephanyqumissy currently on hold per Surgical services 5. Essential hypertension 6. Hyperlipidemia 7. Diabetes mellitus, insulin-dependent. Resume home insulin. Add sliding scale coverage 8. History of coronary artery disease and cardiac stent DVT prophylaxis SCD and GI prophylaxis Protonix Time with Patient: Greater than 30
--- NOTE | 2018-03-23 13:54 | P.PN ---
Progress Note - Text Progress Note Date: 03/23/18 The procedure, risks and complications were discussed with the patient and her daughter. Questions were encouraged and answered. We'll do a laparoscopic cholecystectomy. Intraoperative cholangiogram will be done at Dr. Collins's request. Will obtain bile cultures to rule out cholangitis.
[2018-03-23] MEDS ORDERED: PROPOFOL 10 MG/ML 20 ML VIAL IV ONE (15:00)
[2018-03-23] MEDS ORDERED: IV FLUID CONTINUATION 700 ML IV ONE (15:00)
[2018-03-23] MEDS ORDERED: PHENYLEPHRINE-0.9% NACL SYG 1 MG/10 ML SYRINGE ONE (15:00)
[2018-03-23] MEDS ORDERED: SUCCINYLCHOLINE CHLORIDE 100 MG/5 ML SYR IV ONE (15:00)
[2018-03-23] MEDS ORDERED: LIDOCAINE 1% INJ 10MG/ML (20 ML MDV) ONE (15:00)
[2018-03-23] MEDS ORDERED: fentaNYL (PF) 50 MCG/ML 2 ML AMP ONE (15:00)
[2018-03-23] MEDS ORDERED: MIDAZOLAM 2 MG/2 ML VIAL ONE (15:00)
[2018-03-23] MEDS ORDERED: ROCURONIUM BROMIDE 10 MG/ML 10 ML VIAL IV ONE (15:00)
[2018-03-23] MEDS ORDERED: IOPAMIDOL-370 50ML BTL MISCELLANE ONE (15:27)
[2018-03-23] MEDS ORDERED: BUPIVACAINE (PF) 0.5% 30 ML VIAL SQ ONE ×2 (15:27)
[2018-03-23] MEDS: ASPIRIN 81 MG PO SCH (15:28)
[2018-03-23] MEDS: LOSARTAN 50 MG TAB PO SCH (15:29)
[2018-03-23] MEDS: METOPROLOL SUCCINATE (ER) 50 MG TAB.ER.24H PO SCH (15:29)
[2018-03-23] MEDS: FUROSEMIDE 40 MG TAB PO SCH (15:30)
[2018-03-23] MEDS ORDERED: LACTATED RINGERS 1,000 ML IV ONE ×2 (15:45→16:56)
--- NOTE | 2018-03-23 17:14 | FL ---
EXAMINATION TYPE: FL cholangiogram operative, fluoroscopy support DATE OF EXAM: 03/23/2018 6 seconds fluoroscopy time, intraoperative C-arm image documents the procedure Fluoroscopy support supplied to the referring clinician. See dictated report from general surgery
--- NOTE | 2018-03-23 17:30 | P.OP ---
Date of Procedure: 03/23/18 Preoperative Diagnosis: Acute cholecystitis Postoperative Diagnosis: Acute cholecystitis, ischemic bowel Procedure(s) Performed: Laparoscopy, laparotomy with open cholecystectomy, intraoperative cholangiogram , segmental small bowel resection Anesthesia: KELSI Surgeon: Rohini Alvares Ophthalmologist Retina Specialist #1: Yazan Harrington Estimated Blood Loss (ml): 100 Pathology: other (Gallbladder, multiple bowel) Condition: critical Disposition: ICU Indications for Procedure: The patient presented with abdominal pain, nausea, vomiting, diarrhea. Ultrasound was suggestive of acute cholecystitis. She became worse today with leukocytosis and elevated lactic acid. Description of Procedure: The patient's taken the operative suite where she is prepped and draped in the usual sterile manner under general endotracheal anesthetic. A supraumbilical incision was made. A varies needle was placed into the abdominal cavity and pneumoperitoneum was established with CO2 gas. A 12 mm trochars placed through that site. An additional trocar was placed in the epigastric region. The gallbladder was examined. The small bowel was also visualized and was concerning for ischemia. There was dark turbid fluid in the lower abdomen. Therefore the laparoscopic trochars were removed. The abdomen was entered through a midline incision. Small bleeding points are controlled with electrocautery. Retractor was used. The gallbladder was examined. The cystic artery and cystic duct were dissected free. The cystic duct appeared fairly tortuous and thin. The gallbladder was removed in a domed down manner. The artery was clipped and cut. The cystic duct was then clipped on the lateral aspect. A small enterotomy was made and a cholangiogram catheter was placed. A cholangiogram was then performed. It showed prompt flow into the duodenum and good filling of hepatic radicles. The cholangiogram catheter was removed and the cystic duct was doubly clipped and the gallbladder was passed off. The small bowel was then run from the ligament of Treitz to the terminal ileum. There was about a 25-30% of the mid small bowel showed evidence of bowel wall necrosis, although it was still intact. There were other patchy areas that may or may not progress. Decision was made upon which section to removed. Opening was made in the mesentery and a LENCHO stapler was placed and fired. The mesentery was then divided with LigaSure fairly close to the bowel wall. The distal segment was then transected. This was passed off. She had a 75 cm of viable small bowel proximally and at least 100 cm of the ileum. The abdomen was then copiously irrigated and aspirated. Small stab incision was made and a drain was placed into the liver bed. A wound VAC foam with appropriate plastic barrier was placed intra-abdominally. Foam was then placed into the subcutaneous tissue. The drape was then applied. The wound VAC was started and showed a good seal. She will be taken to ICU on the ventilator. Plan on a second-look operation tomorrow. According to or personnel, all counts are correct.
[2018-03-23] MEDS ORDERED: HEPARIN SODIUM,PORCINE 5,000 UNIT/ML 1 ML VIAL IV PRN (17:49)
[2018-03-23] MEDS ORDERED: HEPARIN SODIUM,PORCINE 5,000 UNIT/ML 1 ML VIAL IV ONE (17:49)
[2018-03-23] MEDS ORDERED: ACETAMINOPHEN IV (For NPO) 1,000 MG in EMPTY BAG 1 BAG IVPB PRN (17:54)
[2018-03-23] MEDS ORDERED: VANCOMYCIN 1,000 MG in SODIUM CHLORIDE 0.9% 250 ML IVPB STA (17:55)
[2018-03-23] MEDS ORDERED: PROPOFOL 100 ML IV ONE (17:56)
[2018-03-23] MEDS ORDERED: HEPARIN SOD,PORK IN 0.45% NACL 25,000 UNIT in 0.45% NACL 1 500ML.BAG IV SCH (18:00)
[2018-03-23] MEDS ORDERED: HEPARIN SODIUM,PORCINE/D5W PMX 25,000 UNIT in DEXTROSE/WATER 1 500ML.BAG IV SCH (18:15)
--- NOTE | 2018-03-23 18:21 | XR ---
EXAMINATION TYPE: XR chest 1V portable DATE OF EXAM: 03/23/2018 COMPARISON: 02/11/2018 HISTORY: Tube placement TECHNIQUE: Single frontal view of the chest is obtained. FINDINGS: Endotracheal tube is 5 cm from the darrin. Nasogastric tube is noted. Heart and mediastinu m are shifted to the left side. There is no heart failure. There are chest leads. There is slight yury nting of costophrenic angles. IMPRESSION: There is possible pneumonia or atelectasis in the left lower lobe with some shift of the heart and mediastinum to the left side. This is slightly worse than last exam. No heart failure. Sma ll pleural effusions are possible.
[2018-03-23] MEDS: PROPOFOL 1,000 MG in EMPTY BAG 1 BAG IV SCH (18:30)
[2018-03-23 19:08] LABS: Amorphous Sediment,Urine Occasional /hpf; Appearance,Urine Cloudy (Clear); Bacteria,Urine Occasional /hpf; Bilirubin,Urine Negative (Negative); Blood,Urine Small (Negative); Color,Urine Yellow; Glucose,Urine (UA) Negative (Negative); Hyaline Casts,Urine 4 /lpf (0-2); Ketones,Urine Trace (Negative); Leukocyte Esterase,Urine Large (Negative); Mucus,Urine Rare /hpf; Nitrite,Urine Negative (Negative); PH, Urine 5.5 (5.0-8.0); Protein,Urine 2+ (Negative); RBC,Urine 2 /hpf (0-5); Specific Gravity,Urine 1.014 (1.001-1.035); Squamous Epithelial Cell,Urine 26 /hpf (0-4); Urobilinogen,Urine <2.0 mg/dL (<2.0); WBC,Urine >182 /hpf (0-5)
[2018-03-23 19:40] LABS: ABG HCO3 24 mmol/L (21-25); ABG PCO2 43 mmHg (35-45); ABG PH 7.35 (7.35-7.45); ABG PO2 >400 mmHg (83-108); ABG TCO2 25 mmol/L (19-24)
[2018-03-23 19:41] LABS: Anisocytosis Slight; HGB 10.8 gm/dL (11.4-16.0); Hypochromasia Marked; MCH 25.3 pg (25.0-35.0); MCHC 27.8 g/dL (31.0-37.0); MCV 91.2 fL (80.0-100.0); Mean Platelet Volume 7.2; Platelet Count 301 k/uL (150-450); RBC 4.28 m/uL (3.80-5.40); RDW 16.1 % (11.5-15.5)
[2018-03-23 19:42] LABS: WBC 35.5 k/uL (3.8-10.6)
[2018-03-23] MEDS: IPRATROPIUM-ALBUTEROL 3 ML NEB INHALATION SCH ×2 (19:42→23:09)
[2018-03-23 20:06] LABS: Calcium 7.2 mg/dL (8.4-10.2); Magnesium 2.3 mg/dL (1.6-2.3); Potassium 4.8 mmol/L (3.5-5.1)
[2018-03-23] MEDS: MEROPENEM 1 GM in SODIUM CHLORIDE 0.9% 100 ML IVPB SCH (20:24)
[2018-03-23] MEDS ORDERED: SODIUM CHLORIDE 0.9% 1,000 ML IV ONE ×2 (20:28→21:30)
[2018-03-23 20:34] LABS: Glucose,Whole Blood 71 mg/dL (75-99)
[2018-03-23] MEDS: CHLORHEXIDINE GLUCONATE 15 ML CUP MUCOUS MEM SCH (20:35)
[2018-03-23] MEDS: INSULIN DETEMIR 100 UNIT/ML 10 ML VIAL SQ SCH (21:21)
[2018-03-23 22:08] LABS: Glucose,Whole Blood 54 mg/dL (75-99)
[2018-03-23] MEDS ORDERED: DEXTROSE 50%-WATER 50 ML SYRINGE IVP ONE (22:08)
[2018-03-23] MEDS ORDERED: NOREPINEPHRIN 4 MG-0.9% NS PMX 4 MG/250 ML ML IV ONE (22:12)
[2018-03-23 22:28] LABS: Glucose,Whole Blood 73 mg/dL (75-99)
[2018-03-23] MEDS: NOREPINEPHRIN 4 MG-0.9% NS PMX 4 MG/250 ML ML IV SCH (22:30)
[2018-03-23 23:10] LABS: Glucose,Whole Blood 92 mg/dL (75-99)
[2018-03-24 00:47] LABS: Anisocytosis Slight; HCT 36.5 % (34.0-46.0); HGB 10.5 gm/dL (11.4-16.0); Hypochromasia Marked; MCH 25.2 pg (25.0-35.0); MCHC 28.6 g/dL (31.0-37.0); MCV 88.2 fL (80.0-100.0); Mean Platelet Volume 8.9; Platelet Count 375 k/uL (150-450); RBC 4.14 m/uL (3.80-5.40); RDW 16.4 % (11.5-15.5)
[2018-03-24 00:50] LABS: WBC 36.5 k/uL (3.8-10.6)
[2018-03-24] MEDS ORDERED: DEXTROSE 5% IN WATER 100 ML with AMIODARONE 150 MG IV ONE (01:06)
[2018-03-24 01:07] LABS: Band Neutrophils % 10 %; Lymphocytes # (M) 2.56 k/uL (1.0-4.8); Neutrophils % (M) 83 %; Nucleated Red Blood Cells 0 /100 WBC (0-0); Poikilocytosis (M) Present; Total Cells Counted 100; Toxic Granulation Present
[2018-03-24 01:08] LABS: Crenated RBC Present
[2018-03-24 01:21] LABS: INR 1.8 (<1.2); Partial Thromboplastin Time 32.1 sec (22.0-30.0); Prothrombin Time 16.7 sec (9.0-12.0)
[2018-03-24] MEDS ORDERED: DEXTROSE 50%-WATER 50 ML SYRINGE IVP ONE (01:43)
[2018-03-24 01:44] LABS: Glucose,Whole Blood 69 mg/dL (75-99)
[2018-03-24] MEDS: PROPOFOL 1,000 MG in EMPTY BAG 1 BAG IV SCH (01:44)
[2018-03-24 02:01] LABS: Glucose,Whole Blood 143 mg/dL (75-99)
[2018-03-24] MEDS: AMIODARONE 450 MG in DEXTROSE 5% IN WATER 250 ML IV SCH ×6 (02:30→17:26)
[2018-03-24] MEDS ORDERED: SODIUM CHLORIDE 0.9% 1,000 ML IV ONE (02:34)
[2018-03-24] MEDS ORDERED: DEXTROSE 5%-LACTATED RINGERS 1,000 ML IV SCH (02:45)
[2018-03-24 03:09] LABS: Glucose,Whole Blood 137 mg/dL (75-99)
[2018-03-24] MEDS: IPRATROPIUM-ALBUTEROL 3 ML NEB INHALATION SCH ×6 (03:16→23:11)
[2018-03-24] MEDS: MEROPENEM 1 GM in SODIUM CHLORIDE 0.9% 100 ML IVPB SCH ×3 (03:34→19:47)
[2018-03-24] MEDS: metroNIDAZOLE-NS PMX 500 MG in SALINE 1 100ML.BAG IVPB SCH ×3 (03:34→18:18)
[2018-03-24] MEDS: LACTATED RINGERS 1,000 ML IV SCH (03:36)
[2018-03-24 04:46] LABS: ABG Base Excess -19.8 mmol/L; ABG HCO3 11 mmol/L (21-25); ABG PCO2 38 mmHg (35-45); ABG PO2 167 mmHg (83-108); ABG TCO2 12 mmol/L (19-24)
[2018-03-24] MEDS ORDERED: SODIUM BICARB 8.4% 50 ML SYR (1 MEQ/ML) IV ONE ×2 (05:03→05:04)
[2018-03-24 05:22] LABS: Anisocytosis Slight; HCT 39.6 % (34.0-46.0); HGB 10.8 gm/dL (11.4-16.0); Hypochromasia Marked; MCH 24.9 pg (25.0-35.0); MCHC 27.2 g/dL (31.0-37.0); MCV 91.4 fL (80.0-100.0); Mean Platelet Volume 7.8; Platelet Count 376 k/uL (150-450); RBC 4.34 m/uL (3.80-5.40); RDW 16.2 % (11.5-15.5)
[2018-03-24 05:24] LABS: WBC 26.7 k/uL (3.8-10.6)
[2018-03-24 05:27] LABS: Calcium 6.7 mg/dL (8.4-10.2); Magnesium 2.3 mg/dL (1.6-2.3); Phosphorus 5.6 mg/dL (2.5-4.5); Potassium 5.1 mmol/L (3.5-5.1); Total Bilirubin 0.4 mg/dL (0.2-1.3); Total Protein 4.3 g/dL (6.3-8.2)
[2018-03-24 05:37] LABS: ABG PH 7.06 (7.35-7.45)
[2018-03-24] MEDS: DEXTROSE 5% IN WATER 1,000 ML with SODIUM BICARB (1 MEQ/ML) 100 ML IV SCH ×3 (05:42→19:46)
[2018-03-24 05:43] LABS: Band Neutrophils % 6 %; Lymphocytes # (M) 1.87 k/uL (1.0-4.8); Monocytes # (M) 0.27 k/uL (0-1.0); Neutrophils % (M) 86 %; Nucleated Red Blood Cells 0 /100 WBC (0-0); Total Cells Counted 100
[2018-03-24 05:44] LABS: Poikilocytosis (M) Present; Toxic Vacuolation Present
[2018-03-24] MEDS: NOREPINEPHRIN 4 MG-0.9% NS PMX 4 MG/250 ML ML IV SCH ×3 (06:30→23:45)
[2018-03-24] MEDS: INSULIN ASPART 100 UNIT/ML 1 ML 10 ML VIAL SQ SCH ×8 (08:04→23:52)
[2018-03-24] MEDS: CHLORHEXIDINE GLUCONATE 15 ML CUP MUCOUS MEM SCH ×2 (08:05→20:09)
[2018-03-24] MEDS: PANTOPRAZOLE 40 MG/10 ML VIAL IVP SCH (08:05)
--- NOTE | 2018-03-24 08:53 | XR ---
EXAMINATION TYPE: XR chest 1V portable DATE OF EXAM: 03/24/2018 COMPARISON: Prior chest x-ray 03/23/2018 HISTORY: Intubated TECHNIQUE: Single frontal view of the chest is obtained. FINDINGS: Endotracheal tube and NG tube are overlying appropriate positions. Patient is rotated. No evident pneumothorax. Retrocardiac density persists. Increased lung volume may be indicative of under lying COPD. Interstitium is increased. There are overlying cardiac leads. IMPRESSION: Findings are similar to prior exam. Correlate for pneumonia versus atypical presentation of congestive heart failure in a patient with pre-existing COPD. There may be associated effusion. F ollow-up recommended.
[2018-03-24] MEDS: MORPHINE SULFATE 2 MG/ML SYRINGE IVP PRN ×2 (09:24→18:16)
[2018-03-24] MEDS ORDERED: FUROSEMIDE 10 MG/ML 4 ML VIAL IV STA (10:01)
--- NOTE | 2018-03-24 10:17 | P.PN ---
Subjective Progress Note Date: 03/24/18 Principal diagnosis: Sepsis acute cholecystitis ischemic bowel UTI Status post laparotomy open cholecystectomy unremarkable IOC segmental small bowel resection yesterday. IV pressors Levophed 16 g an hour. Intubated sedated. Increased transaminases AST 3121. ALT 722. AP 84. Total bilirubin 0.4. Lactic acid 13.6. Blood gas pH 7.0. BUN 29. Creatinine 1.5. Objective - Vital Signs Vital signs: Vital Signs Temp 98.8 F 03/24/18 04:00 Pulse 95 03/24/18 07:45 Resp 25 H 03/24/18 07:00 BP 106/41 03/24/18 07:00 Pulse Ox 100 03/24/18 07:00 Intake & Output 03/23/18 03/24/18 03/24/18 18:59 06:59 18:59 Intake Total 3800 6667.210 413.6 Output Total 2230 315 0 Balance 1570 6352.210 413.6 Weight 91.9 kg Intake: IV 3800 6200 150 Dextrose 5% in Water 1, 150 150 000 ml @ 150 mls/hr IV . Q7H20M [facility] with Sodium Bicarb (1 Meq/ml) 100 ml Rx#:[id number] Dextrose 5% in Water 100 300 ml @ 150 mls/hr IV .Q42M ONE with Amiodarone 150 mg Rx#:[id number] Lactated Ringers 1,000 ml 1600 2200 @ 150 mls/hr IV .Q6H40M [facility] Rx#:[id number] Meropenem 1 gm In Sodium 200 Chloride 0.9% 100 ml @ 200 mls/hr IVPB Q8H [facility] Rx#:[id number] Sodium Chloride 0.9% 1, 3000 000 ml @ 999 mls/hr IV . Q1H1M ONE Rx#:[id number] Vancomycin 1,000 mg In 250 Sodium Chloride 0.9% 250 ml @ 125 mls/hr IVPB ONCE STA Rx#:[id number] metroNIDAZOLE-NS PMX 500 100 mg In Saline 1 100ml.bag @ 100 mls/hr IVPB Q8H [facility] Rx#:[id number] Intake, IV Titration 467.210 263.6 Amount Heparin Sodium,Porcine/ 150.333 D5w Pmx 25,000 unit In Dextrose/Water 1 500ml. bag @ 10 UNITS/KG/HR 19. 76 mls/hr IV .Q24H [facility] Rx #:[id number] Norepinephrin 4 mg-0.9% 250.00 206 Ns Pmx 4 mg In 250 ml @ Titrate IV .Q0M [facility] Rx#: [id number] Propofol 1,000 mg In 66.877 57.6 Empty Bag 1 bag @ Titrate IV .Q0M [facility] Rx#: [id number] Output: Gastric Drainage 250 Drainage 0 Right Abdomen 0 Urine 2180 65 0 Estimated Blood Loss 50 Other: Voiding Method Indwelling Catheter Indwelling Catheter # Voids 1 - Exam General appearance: Sedated and intubated. HEENT: Head is normocephalic and atraumatic. Pupils are equal and reactive. The nares are patent. Oropharynx is clear without lesions. Endotracheal tube intact. Gastric tube to suction. Neck: Supple without lymphadenopathy. Trachea midline. Heart: S1 S2. Regular rate and rhythm. Lungs: No crackles or wheezes are heard. Abdomen: Soft, dressings wound VAC with hypoactive bowel sounds. Bloated. No palpable organomegaly or masses. Extremities: Normal skin color and turgor. No cyanosis, rash, ulceration, clubbing, or edema. Radial and pedal pulses are 2/4 bilaterally. Rice concentrated urine. Neurological: Cannot be assessed at this time since the patient is intubated and sedated. - Labs CBC & Chem 7: 03/24/18 04:51 03/24/18 04:51 Labs: Abnormal Lab Results - Last 24 Hours (Table) 03/23/18 03/23/18 03/23/18 Range/Units 07:58 09:44 09:44 WBC 38.6 H* (3.8-10.6) k/uL Hgb (11.4-16.0) gm/dL MCH (25.0-35.0) pg MCHC 29.1 L (31.0-37.0) g/dL RDW 16.0 H (11.5-15.5) % Plt Count 522 H (150-450) k/uL Neutrophils # (Manual) 30.70 H 33.90 H (1.3-7.7) k/uL Monocytes # (Manual) 2.15 H 1.54 H (0-1.0) k/uL Metamyelocytes # (Man) 0.36 H 0.39 H (0) k/uL PT (9.0-12.0) sec INR (<1.2) APTT (22.0-30.0) sec ABG pH (7.35-7.45) ABG pO2 (83-108) mmHg ABG HCO3 (21-25) mmol/L ABG Total CO2 (19-24) mmol/L ABG O2 Saturation (94-97) % Sodium (137-145) mmol/L Carbon Dioxide (22-30) mmol/L BUN (7-17) mg/dL Creatinine (0.52-1.04) mg/dL Glucose (74-99) mg/dL POC Glucose (mg/dL) (75-99) mg/dL Plasma Lactic Acid Colby 7.1 H* (0.7-2.0) mmol/L Calcium (8.4-10.2) mg/dL Phosphorus (2.5-4.5) mg/dL AST (14-36) U/L ALT (9-52) U/L Total Protein (6.3-8.2) g/dL Albumin (3.5-5.0) g/dL Lipase (23-300) U/L Urine Appearance (Clear) Urine Protein (Negative) Urine Ketones (Negative) Urine Blood (Negative) Ur Leukocyte Esterase (Negative) Urine WBC (0-5) /hpf Urine WBC Clumps (None) /hpf Ur Squamous Epith Cells (0-4) /hpf Amorphous Sediment (None) /hpf Urine Bacteria (None) /hpf Hyaline Casts (0-2) /lpf Urine Mucus (None) /hpf 03/23/18 03/23/18 03/23/18 Range/Units 09:44 11:22 11:50 WBC (3.8-10.6) k/uL Hgb (11.4-16.0) gm/dL MCH (25.0-35.0) pg MCHC (31.0-37.0) g/dL RDW (11.5-15.5) % Plt Count (150-450) k/uL Neutrophils # (Manual) (1.3-7.7) k/uL Monocytes # (Manual) (0-1.0) k/uL Metamyelocytes # (Man) (0) k/uL PT 12.6 H (9.0-12.0) sec INR 1.3 H (<1.2) APTT (22.0-30.0) sec ABG pH (7.35-7.45) ABG pO2 (83-108) mmHg ABG HCO3 (21-25) mmol/L ABG Total CO2 (19-24) mmol/L ABG O2 Saturation (94-97) % Sodium (137-145) mmol/L Carbon Dioxide (22-30) mmol/L BUN (7-17) mg/dL Creatinine (0.52-1.04) mg/dL Glucose (74-99) mg/dL POC Glucose (mg/dL) 129 H (75-99) mg/dL Plasma Lactic Acid Colby (0.7-2.0) mmol/L Calcium (8.4-10.2) mg/dL Phosphorus (2.5-4.5) mg/dL AST (14-36) U/L ALT (9-52) U/L Total Protein (6.3-8.2) g/dL Albumin (3.5-5.0) g/dL Lipase 18 L (23-300) U/L Urine Appearance (Clear) Urine Protein (Negative) Urine Ketones (Negative) Urine Blood (Negative) Ur Leukocyte Esterase (Negative) Urine WBC (0-5) /hpf Urine WBC Clumps (None) /hpf Ur Squamous Epith Cells (0-4) /hpf Amorphous Sediment (None) /hpf Urine Bacteria (None) /hpf Hyaline Casts (0-2) /lpf Urine Mucus (None) /hpf 03/23/18 03/23/18 03/23/18 Range/Units 13:24 18:30 19:23 WBC (3.8-10.6) k/uL Hgb (11.4-16.0) gm/dL MCH (25.0-35.0) pg MCHC (31.0-37.0) g/dL RDW (11.5-15.5) % Plt Count (150-450) k/uL Neutrophils # (Manual) (1.3-7.7) k/uL Monocytes # (Manual) (0-1.0) k/uL Metamyelocytes # (Man) (0) k/uL PT (9.0-12.0) sec INR (<1.2) APTT (22.0-30.0) sec ABG pH (7.35-7.45) ABG pO2 >400 H (83-108) mmHg ABG HCO3 (21-25) mmol/L ABG Total CO2 25 H (19-24) mmol/L ABG O2 Saturation 100.0 H (94-97) % Sodium (137-145) mmol/L Carbon Dioxide (22-30) mmol/L BUN (7-17) mg/dL Creatinine (0.52-1.04) mg/dL Glucose (74-99) mg/dL POC Glucose (mg/dL) (75-99) mg/dL Plasma Lactic Acid Colby 5.8 H* (0.7-2.0) mmol/L Calcium (8.4-10.2) mg/dL Phosphorus (2.5-4.5) mg/dL AST (14-36) U/L ALT (9-52) U/L Total Protein (6.3-8.2) g/dL Albumin (3.5-5.0) g/dL Lipase (23-300) U/L Urine Appearance Cloudy H (Clear) Urine Protein 2+ H (Negative) Urine Ketones Trace H (Negative) Urine Blood Small H (Negative) Ur Leukocyte Esterase Large H (Negative) Urine WBC >182 H (0-5) /hpf Urine WBC Clumps Many H (None) /hpf Ur Squamous Epith Cells 26 H (0-4) /hpf Amorphous Sediment Occasional H (None) /hpf Urine Bacteria Occasional H (None) /hpf Hyaline Casts 4 H (0-2) /lpf Urine Mucus Rare H (None) /hpf 03/23/18 03/23/18 03/23/18 Range/Units 19:29 19:29 20:31 WBC 35.5 H* (3.8-10.6) k/uL Hgb 10.8 L (11.4-16.0) gm/dL MCH (25.0-35.0) pg MCHC 27.8 L (31.0-37.0) g/dL RDW 16.1 H (11.5-15.5) % Plt Count (150-450) k/uL Neutrophils # (Manual) (1.3-7.7) k/uL Monocytes # (Manual) (0-1.0) k/uL Metamyelocytes # (Man) (0) k/uL PT (9.0-12.0) sec INR (<1.2) APTT (22.0-30.0) sec ABG pH (7.35-7.45) ABG pO2 (83-108) mmHg ABG HCO3 (21-25) mmol/L ABG Total CO2 (19-24) mmol/L ABG O2 Saturation (94-97) % Sodium 136 L (137-145) mmol/L Carbon Dioxide 17 L (22-30) mmol/L BUN 33 H (7-17) mg/dL Creatinine (0.52-1.04) mg/dL Glucose (74-99) mg/dL POC Glucose (mg/dL) 71 L (75-99) mg/dL Plasma Lactic Acid Colby (0.7-2.0) mmol/L Calcium 7.2 L (8.4-10.2) mg/dL Phosphorus (2.5-4.5) mg/dL AST (14-36) U/L ALT (9-52) U/L Total Protein (6.3-8.2) g/dL Albumin (3.5-5.0) g/dL Lipase (23-300) U/L Urine Appearance (Clear) Urine Protein (Negative) Urine Ketones (Negative) Urine Blood (Negative) Ur Leukocyte Esterase (Negative) Urine WBC (0-5) /hpf Urine WBC Clumps (None) /hpf Ur Squamous Epith Cells (0-4) /hpf Amorphous Sediment (None) /hpf Urine Bacteria (None) /hpf Hyaline Casts (0-2) /lpf Urine Mucus (None) /hpf 03/23/18 03/23/18 03/24/18 Range/Units 22:07 22:24 00:02 WBC 36.5 H* (3.8-10.6) k/uL Hgb 10.5 L (11.4-16.0) gm/dL MCH (25.0-35.0) pg MCHC 28.6 L (31.0-37.0) g/dL RDW 16.4 H (11.5-15.5) % Plt Count (150-450) k/uL Neutrophils # (Manual) 33.90 H (1.3-7.7) k/uL Monocytes # (Manual) (0-1.0) k/uL Metamyelocytes # (Man) (0) k/uL PT (9.0-12.0) sec INR (<1.2) APTT (22.0-30.0) sec ABG pH (7.35-7.45) ABG pO2 (83-108) mmHg ABG HCO3 (21-25) mmol/L ABG Total CO2 (19-24) mmol/L ABG O2 Saturation (94-97) % Sodium (137-145) mmol/L Carbon Dioxide (22-30) mmol/L BUN (7-17) mg/dL Creatinine (0.52-1.04) mg/dL Glucose (74-99) mg/dL POC Glucose (mg/dL) 54 L 73 L (75-99) mg/dL Plasma Lactic Acid Colby (0.7-2.0) mmol/L Calcium (8.4-10.2) mg/dL Phosphorus (2.5-4.5) mg/dL AST (14-36) U/L ALT (9-52) U/L Total Protein (6.3-8.2) g/dL Albumin (3.5-5.0) g/dL Lipase (23-300) U/L Urine Appearance (Clear) Urine Protein (Negative) Urine Ketones (Negative) Urine Blood (Negative) Ur Leukocyte Esterase (Negative) Urine WBC (0-5) /hpf Urine WBC Clumps (None) /hpf Ur Squamous Epith Cells (0-4) /hpf Amorphous Sediment (None) /hpf Urine Bacteria (None) /hpf Hyaline Casts (0-2) /lpf Urine Mucus (None) /hpf 03/24/18 03/24/18 03/24/18 Range/Units 00:53 00:53 01:42 WBC (3.8-10.6) k/uL Hgb (11.4-16.0) gm/dL MCH (25.0-35.0) pg MCHC (31.0-37.0) g/dL RDW (11.5-15.5) % Plt Count (150-450) k/uL Neutrophils # (Manual) (1.3-7.7) k/uL Monocytes # (Manual) (0-1.0) k/uL Metamyelocytes # (Man) (0) k/uL PT 16.7 H (9.0-12.0) sec INR 1.8 H (<1.2) APTT 32.1 H (22.0-30.0) sec ABG pH (7.35-7.45) ABG pO2 (83-108) mmHg ABG HCO3 (21-25) mmol/L ABG Total CO2 (19-24) mmol/L ABG O2 Saturation (94-97) % Sodium (137-145) mmol/L Carbon Dioxide (22-30) mmol/L BUN (7-17) mg/dL Creatinine (0.52-1.04) mg/dL Glucose (74-99) mg/dL POC Glucose (mg/dL) 69 L (75-99) mg/dL Plasma Lactic Acid Colby 10.8 H* (0.7-2.0) mmol/L Calcium (8.4-10.2) mg/dL Phosphorus (2.5-4.5) mg/dL AST (14-36) U/L ALT (9-52) U/L Total Protein (6.3-8.2) g/dL Albumin (3.5-5.0) g/dL Lipase (23-300) U/L Urine Appearance (Clear) Urine Protein (Negative) Urine Ketones (Negative) Urine Blood (Negative) Ur Leukocyte Esterase (Negative) Urine WBC (0-5) /hpf Urine WBC Clumps (None) /hpf Ur Squamous Epith Cells (0-4) /hpf Amorphous Sediment (None) /hpf Urine Bacteria (None) /hpf Hyaline Casts (0-2) /lpf Urine Mucus (None) /hpf 03/24/18 03/24/18 03/24/18 Range/Units 01:59 03:08 04:10 WBC (3.8-10.6) k/uL Hgb (11.4-16.0) gm/dL MCH (25.0-35.0) pg MCHC (31.0-37.0) g/dL RDW (11.5-15.5) % Plt Count (150-450) k/uL Neutrophils # (Manual) (1.3-7.7) k/uL Monocytes # (Manual) (0-1.0) k/uL Metamyelocytes # (Man) (0) k/uL PT (9.0-12.0) sec INR (<1.2) APTT (22.0-30.0) sec ABG pH 7.06 L* (7.35-7.45) ABG pO2 167 H (83-108) mmHg ABG HCO3 11 L (21-25) mmol/L ABG Total CO2 12 L (19-24) mmol/L ABG O2 Saturation 99.0 H (94-97) % Sodium (137-145) mmol/L Carbon Dioxide (22-30) mmol/L BUN (7-17) mg/dL Creatinine (0.52-1.04) mg/dL Glucose (74-99) mg/dL POC Glucose (mg/dL) 143 H 137 H (75-99) mg/dL Plasma Lactic Acid Colby (0.7-2.0) mmol/L Calcium (8.4-10.2) mg/dL Phosphorus (2.5-4.5) mg/dL AST (14-36) U/L ALT (9-52) U/L Total Protein (6.3-8.2) g/dL Albumin (3.5-5.0) g/dL Lipase (23-300) U/L Urine Appearance (Clear) Urine Protein (Negative) Urine Ketones (Negative) Urine Blood (Negative) Ur Leukocyte Esterase (Negative) Urine WBC (0-5) /hpf Urine WBC Clumps (None) /hpf Ur Squamous Epith Cells (0-4) /hpf Amorphous Sediment (None) /hpf Urine Bacteria (None) /hpf Hyaline Casts (0-2) /lpf Urine Mucus (None) /hpf 03/24/18 03/24/18 03/24/18 Range/Units 04:51 04:51 04:51 WBC 26.7 H* (3.8-10.6) k/uL Hgb 10.8 L (11.4-16.0) gm/dL MCH 24.9 L (25.0-35.0) pg MCHC 27.2 L (31.0-37.0) g/dL RDW 16.2 H (11.5-15.5) % Plt Count (150-450) k/uL Neutrophils # (Manual) 24.50 H (1.3-7.7) k/uL Monocytes # (Manual) (0-1.0) k/uL Metamyelocytes # (Man) (0) k/uL PT (9.0-12.0) sec INR (<1.2) APTT (22.0-30.0) sec ABG pH (7.35-7.45) ABG pO2 (83-108) mmHg ABG HCO3 (21-25) mmol/L ABG Total CO2 (19-24) mmol/L ABG O2 Saturation (94-97) % Sodium (137-145) mmol/L Carbon Dioxide 10 L* (22-30) mmol/L BUN 29 H (7-17) mg/dL Creatinine 1.50 H (0.52-1.04) mg/dL Glucose 122 H (74-99) mg/dL POC Glucose (mg/dL) (75-99) mg/dL Plasma Lactic Acid Colby 13.6 H* (0.7-2.0) mmol/L Calcium 6.7 L (8.4-10.2) mg/dL Phosphorus 5.6 H (2.5-4.5) mg/dL AST 3121 H (14-36) U/L ALT 722 H (9-52) U/L Total Protein 4.3 L (6.3-8.2) g/dL Albumin 2.0 L (3.5-5.0) g/dL Lipase (23-300) U/L Urine Appearance (Clear) Urine Protein (Negative) Urine Ketones (Negative) Urine Blood (Negative) Ur Leukocyte Esterase (Negative) Urine WBC (0-5) /hpf Urine WBC Clumps (None) /hpf Ur Squamous Epith Cells (0-4) /hpf Amorphous Sediment (None) /hpf Urine Bacteria (None) /hpf Hyaline Casts (0-2) /lpf Urine Mucus (None) /hpf Microbiology - Last 24 Hours (Table) 03/23/18 17:13 Gram Stain - Preliminary Rectum Wound Culture - Preliminary 03/23/18 17:13 Gram Stain - Preliminary Peritoneal Fluid Body Fluid Culture - Preliminary 03/22/18 11:22 Urine Culture - Final Urine,Clean Catch 03/23/18 17:13 Anaerobic Culture - Preliminary Peritoneal Fluid 03/23/18 17:13 Anaerobic Culture - Preliminary Rectum Assessment and Plan Assessment: Impression: 1. Sepsis acute right upper quadrant abdominal pain nausea vomiting profound leukocytosis lactic acid with elevated transaminases cholelithiasis acute cholecystitis ischemic bowel status post surgery. 2. Elevated liver enzymes consistent with ischemic hepatitis shock liver cholecystitis. Intraoperative cholangiogram no evidence of choledocholithiasis. 3. History of non-small cell lung carcinoma with recent CT imaging reporting a right lower lobe mass abutting the pleural space strongly suspicious for bronchiogenic carcinoma under investigation in the outpatient setting. 4. History of atrial fibrillation maintained on Eliquis. 5. COPD. 6. UTI. Plan: 1. Supportive measures. ICU monitoring. General surgery following closely. Daily CMP. Cardiac condition. Continue with IV antibiotics. Assessment and plan a care discussed with Dr. Collins
--- NOTE | 2018-03-24 10:19 | P.PN ---
Subjective Progress Note Date: 03/24/18 Principal diagnosis: Respiratory failure, metabolic acidosis, cholecystitis, ischemic bowel Progress note dated 03/24/2018 72-year-old female who we saw yesterday in consultation. She was on the third floor observation unit. She apparently was thought to have an acute cholecystitis. Because she was on a factor X a inhibitor, there is some reluctance initially to take her to the operating room because of bleeding risk. Anyway yesterday she went for the surgery and in addition to a very inflamed/hot gallbladder, the patient was found to have ischemic bowel and she had a bowel resection done by Dr. Alvares the surgeon. Unfortunately, the patient has done poorly overnight. She came back from the operation on the ventilator. She's had profound sepsis with worsening lactic acidemia and profound metabolic acidosis. In addition, she had severe leukocytosis. She has a history of multiple medical problems including's severe COPD, previous non -small cell lung cancer with left lower lobectomy recent computed tomography scan revealing a right lower lobe mass abutting the pleural space strongly suspicious for recurrent bronchogenic carcinoma atrial fibrillation pulmonary hypertension diastolic heart failure diabetes hyperlipidemia hypertension meningitis and obesity. The patient despite getting fluid resuscitation and antibiotics and significant supportive care, has continued to decline. I spoke to the surgeon this morning and basically said that if she went back to the operating room, she would probably . In addition, without surgery she probably would as well. The family's on the fence as to what to do according to the surgeon. I think at the very least the patient should be a DO NOT RESUSCITATE. I would strongly argue against any additional surgery as I don 't think she will survive the procedure. Again her overall prognosis is very poor given the current acute issues as well as her chronic medical problems. Objective - Vital Signs Vital signs: Vital Signs Temp 98.8 F 03/24/18 04:00 Pulse 95 03/24/18 07:45 Resp 25 H 03/24/18 07:00 BP 106/41 03/24/18 07:00 Pulse Ox 100 03/24/18 07:00 Intake & Output 03/23/18 03/24/18 03/24/18 18:59 06:59 18:59 Intake Total 3800 6667.210 413.6 Output Total 2230 315 0 Balance 1570 6352.210 413.6 Weight 91.9 kg Intake: IV 3800 6200 150 Dextrose 5% in Water 1, 150 150 000 ml @ 150 mls/hr IV . Q7H20M BRITTANI with Sodium Bicarb (1 Meq/ml) 100 ml Rx#:[id number] Dextrose 5% in Water 100 300 ml @ 150 mls/hr IV .Q42M ONE with Amiodarone 150 mg Rx#:[id number] Lactated Ringers 1,000 ml 1600 2200 @ 150 mls/hr IV .Q6H40M [facility] Rx#:[id number] Meropenem 1 gm In Sodium 200 Chloride 0.9% 100 ml @ 200 mls/hr IVPB Q8H [facility] Rx#:[id number] Sodium Chloride 0.9% 1, 3000 000 ml @ 999 mls/hr IV . Q1H1M ONE Rx#:[id number] Vancomycin 1,000 mg In 250 Sodium Chloride 0.9% 250 ml @ 125 mls/hr IVPB ONCE STA Rx#:[id number] metroNIDAZOLE-NS PMX 500 100 mg In Saline 1 100ml.bag @ 100 mls/hr IVPB Q8H [facility] Rx#:[id number] Intake, IV Titration 467.210 263.6 Amount Heparin Sodium,Porcine/ 150.333 D5w Pmx 25,000 unit In Dextrose/Water 1 500ml. bag @ 10 UNITS/KG/HR 19. 76 mls/hr IV .Q24H [facility] Rx #:[id number] Norepinephrin 4 mg-0.9% 250.00 206 Ns Pmx 4 mg In 250 ml @ Titrate IV .Q0M [facility] Rx#: [id number] Propofol 1,000 mg In 66.877 57.6 Empty Bag 1 bag @ Titrate IV .Q0M [facility] Rx#: [id number] Output: Gastric Drainage 250 Drainage 0 Right Abdomen 0 Urine 2180 65 0 Estimated Blood Loss 50 Other: Voiding Method Indwelling Catheter Indwelling Catheter # Voids 1 - Exam No acute distress, sedated, with an orally placed endotracheal tube and NG tube. The patient is dyssynchronous with the ventilator. HEENT examination is grossly unremarkable. Mucous membranes are moist. Neck supple. Full range of motion. No adenopathy thyromegaly or neck vein distention. Cardiovascular examination reveals a regular rhythm and rate. The patient is clearly in atrial fibrillation. Heart rate about 105. Lungs reveal coarse bilateral breath sounds. No wheezes or crackles. Breath sounds are equal bilaterally. Abdomen soft. No bowel sounds are heard. The abdomen remains open with a wound VAC in place. Extremities are intact. There is some evidence of livedo reticularis. Skin is without rash or lesion. Neurologic examination could not be assessed. - Labs CBC & Chem 7: 03/24/18 04:51 03/24/18 04:51 Labs: Abnormal Lab Results - Last 24 Hours (Table) 03/23/18 03/23/18 03/23/18 Range/Units 07:58 09:44 09:44 WBC 38.6 H* (3.8-10.6) k/uL Hgb (11.4-16.0) gm/dL MCH (25.0-35.0) pg MCHC 29.1 L (31.0-37.0) g/dL RDW 16.0 H (11.5-15.5) % Plt Count 522 H (150-450) k/uL Neutrophils # (Manual) 30.70 H 33.90 H (1.3-7.7) k/uL Monocytes # (Manual) 2.15 H 1.54 H (0-1.0) k/uL Metamyelocytes # (Man) 0.36 H 0.39 H (0) k/uL PT (9.0-12.0) sec INR (<1.2) APTT (22.0-30.0) sec ABG pH (7.35-7.45) ABG pO2 (83-108) mmHg ABG HCO3 (21-25) mmol/L ABG Total CO2 (19-24) mmol/L ABG O2 Saturation (94-97) % Sodium (137-145) mmol/L Carbon Dioxide (22-30) mmol/L BUN (7-17) mg/dL Creatinine (0.52-1.04) mg/dL Glucose (74-99) mg/dL POC Glucose (mg/dL) (75-99) mg/dL Plasma Lactic Acid Colby 7.1 H* (0.7-2.0) mmol/L Calcium (8.4-10.2) mg/dL Phosphorus (2.5-4.5) mg/dL AST (14-36) U/L ALT (9-52) U/L Total Protein (6.3-8.2) g/dL Albumin (3.5-5.0) g/dL Lipase (23-300) U/L Urine Appearance (Clear) Urine Protein (Negative) Urine Ketones (Negative) Urine Blood (Negative) Ur Leukocyte Esterase (Negative) Urine WBC (0-5) /hpf Urine WBC Clumps (None) /hpf Ur Squamous Epith Cells (0-4) /hpf Amorphous Sediment (None) /hpf Urine Bacteria (None) /hpf Hyaline Casts (0-2) /lpf Urine Mucus (None) /hpf 03/23/18 03/23/18 03/23/18 Range/Units 09:44 11:22 11:50 WBC (3.8-10.6) k/uL Hgb (11.4-16.0) gm/dL MCH (25.0-35.0) pg MCHC (31.0-37.0) g/dL RDW (11.5-15.5) % Plt Count (150-450) k/uL Neutrophils # (Manual) (1.3-7.7) k/uL Monocytes # (Manual) (0-1.0) k/uL Metamyelocytes # (Man) (0) k/uL PT 12.6 H (9.0-12.0) sec INR 1.3 H (<1.2) APTT (22.0-30.0) sec ABG pH (7.35-7.45) ABG pO2 (83-108) mmHg ABG HCO3 (21-25) mmol/L ABG Total CO2 (19-24) mmol/L ABG O2 Saturation (94-97) % Sodium (137-145) mmol/L Carbon Dioxide (22-30) mmol/L BUN (7-17) mg/dL Creatinine (0.52-1.04) mg/dL Glucose (74-99) mg/dL POC Glucose (mg/dL) 129 H (75-99) mg/dL Plasma Lactic Acid Colby (0.7-2.0) mmol/L Calcium (8.4-10.2) mg/dL Phosphorus (2.5-4.5) mg/dL AST (14-36) U/L ALT (9-52) U/L Total Protein (6.3-8.2) g/dL Albumin (3.5-5.0) g/dL Lipase 18 L (23-300) U/L Urine Appearance (Clear) Urine Protein (Negative) Urine Ketones (Negative) Urine Blood (Negative) Ur Leukocyte Esterase (Negative) Urine WBC (0-5) /hpf Urine WBC Clumps (None) /hpf Ur Squamous Epith Cells (0-4) /hpf Amorphous Sediment (None) /hpf Urine Bacteria (None) /hpf Hyaline Casts (0-2) /lpf Urine Mucus (None) /hpf 03/23/18 03/23/18 03/23/18 Range/Units 13:24 18:30 19:23 WBC (3.8-10.6) k/uL Hgb (11.4-16.0) gm/dL MCH (25.0-35.0) pg MCHC (31.0-37.0) g/dL RDW (11.5-15.5) % Plt Count (150-450) k/uL Neutrophils # (Manual) (1.3-7.7) k/uL Monocytes # (Manual) (0-1.0) k/uL Metamyelocytes # (Man) (0) k/uL PT (9.0-12.0) sec INR (<1.2) APTT (22.0-30.0) sec ABG pH (7.35-7.45) ABG pO2 >400 H (83-108) mmHg ABG HCO3 (21-25) mmol/L ABG Total CO2 25 H (19-24) mmol/L ABG O2 Saturation 100.0 H (94-97) % Sodium (137-145) mmol/L Carbon Dioxide (22-30) mmol/L BUN (7-17) mg/dL Creatinine (0.52-1.04) mg/dL Glucose (74-99) mg/dL POC Glucose (mg/dL) (75-99) mg/dL Plasma Lactic Acid Colby 5.8 H* (0.7-2.0) mmol/L Calcium (8.4-10.2) mg/dL Phosphorus (2.5-4.5) mg/dL AST (14-36) U/L ALT (9-52) U/L Total Protein (6.3-8.2) g/dL Albumin (3.5-5.0) g/dL Lipase (23-300) U/L Urine Appearance Cloudy H (Clear) Urine Protein 2+ H (Negative) Urine Ketones Trace H (Negative) Urine Blood Small H (Negative) Ur Leukocyte Esterase Large H (Negative) Urine WBC >182 H (0-5) /hpf Urine WBC Clumps Many H (None) /hpf Ur Squamous Epith Cells 26 H (0-4) /hpf Amorphous Sediment Occasional H (None) /hpf Urine Bacteria Occasional H (None) /hpf Hyaline Casts 4 H (0-2) /lpf Urine Mucus Rare H (None) /hpf 03/23/18 03/23/18 03/23/18 Range/Units 19:29 19:29 20:31 WBC 35.5 H* (3.8-10.6) k/uL Hgb 10.8 L (11.4-16.0) gm/dL MCH (25.0-35.0) pg MCHC 27.8 L (31.0-37.0) g/dL RDW 16.1 H (11.5-15.5) % Plt Count (150-450) k/uL Neutrophils # (Manual) (1.3-7.7) k/uL Monocytes # (Manual) (0-1.0) k/uL Metamyelocytes # (Man) (0) k/uL PT (9.0-12.0) sec INR (<1.2) APTT (22.0-30.0) sec ABG pH (7.35-7.45) ABG pO2 (83-108) mmHg ABG HCO3 (21-25) mmol/L ABG Total CO2 (19-24) mmol/L ABG O2 Saturation (94-97) % Sodium 136 L (137-145) mmol/L Carbon Dioxide 17 L (22-30) mmol/L BUN 33 H (7-17) mg/dL Creatinine (0.52-1.04) mg/dL Glucose (74-99) mg/dL POC Glucose (mg/dL) 71 L (75-99) mg/dL Plasma Lactic Acid Colby (0.7-2.0) mmol/L Calcium 7.2 L (8.4-10.2) mg/dL Phosphorus (2.5-4.5) mg/dL AST (14-36) U/L ALT (9-52) U/L Total Protein (6.3-8.2) g/dL Albumin (3.5-5.0) g/dL Lipase (23-300) U/L Urine Appearance (Clear) Urine Protein (Negative) Urine Ketones (Negative) Urine Blood (Negative) Ur Leukocyte Esterase (Negative) Urine WBC (0-5) /hpf Urine WBC Clumps (None) /hpf Ur Squamous Epith Cells (0-4) /hpf Amorphous Sediment (None) /hpf Urine Bacteria (None) /hpf Hyaline Casts (0-2) /lpf Urine Mucus (None) /hpf 03/23/18 03/23/18 03/24/18 Range/Units 22:07 22:24 00:02 WBC 36.5 H* (3.8-10.6) k/uL Hgb 10.5 L (11.4-16.0) gm/dL MCH (25.0-35.0) pg MCHC 28.6 L (31.0-37.0) g/dL RDW 16.4 H (11.5-15.5) % Plt Count (150-450) k/uL Neutrophils # (Manual) 33.90 H (1.3-7.7) k/uL Monocytes # (Manual) (0-1.0) k/uL Metamyelocytes # (Man) (0) k/uL PT (9.0-12.0) sec INR (<1.2) APTT (22.0-30.0) sec ABG pH (7.35-7.45) ABG pO2 (83-108) mmHg ABG HCO3 (21-25) mmol/L ABG Total CO2 (19-24) mmol/L ABG O2 Saturation (94-97) % Sodium (137-145) mmol/L Carbon Dioxide (22-30) mmol/L BUN (7-17) mg/dL Creatinine (0.52-1.04) mg/dL Glucose (74-99) mg/dL POC Glucose (mg/dL) 54 L 73 L (75-99) mg/dL Plasma Lactic Acid Colby (0.7-2.0) mmol/L Calcium (8.4-10.2) mg/dL Phosphorus (2.5-4.5) mg/dL AST (14-36) U/L ALT (9-52) U/L Total Protein (6.3-8.2) g/dL Albumin (3.5-5.0) g/dL Lipase (23-300) U/L Urine Appearance (Clear) Urine Protein (Negative) Urine Ketones (Negative) Urine Blood (Negative) Ur Leukocyte Esterase (Negative) Urine WBC (0-5) /hpf Urine WBC Clumps (None) /hpf Ur Squamous Epith Cells (0-4) /hpf Amorphous Sediment (None) /hpf Urine Bacteria (None) /hpf Hyaline Casts (0-2) /lpf Urine Mucus (None) /hpf 03/24/18 03/24/18 03/24/18 Range/Units 00:53 00:53 01:42 WBC (3.8-10.6) k/uL Hgb (11.4-16.0) gm/dL MCH (25.0-35.0) pg MCHC (31.0-37.0) g/dL RDW (11.5-15.5) % Plt Count (150-450) k/uL Neutrophils # (Manual) (1.3-7.7) k/uL Monocytes # (Manual) (0-1.0) k/uL Metamyelocytes # (Man) (0) k/uL PT 16.7 H (9.0-12.0) sec INR 1.8 H (<1.2) APTT 32.1 H (22.0-30.0) sec ABG pH (7.35-7.45) ABG pO2 (83-108) mmHg ABG HCO3 (21-25) mmol/L ABG Total CO2 (19-24) mmol/L ABG O2 Saturation (94-97) % Sodium (137-145) mmol/L Carbon Dioxide (22-30) mmol/L BUN (7-17) mg/dL Creatinine (0.52-1.04) mg/dL Glucose (74-99) mg/dL POC Glucose (mg/dL) 69 L (75-99) mg/dL Plasma Lactic Acid Colby 10.8 H* (0.7-2.0) mmol/L Calcium (8.4-10.2) mg/dL Phosphorus (2.5-4.5) mg/dL AST (14-36) U/L ALT (9-52) U/L Total Protein (6.3-8.2) g/dL Albumin (3.5-5.0) g/dL Lipase (23-300) U/L Urine Appearance (Clear) Urine Protein (Negative) Urine Ketones (Negative) Urine Blood (Negative) Ur Leukocyte Esterase (Negative) Urine WBC (0-5) /hpf Urine WBC Clumps (None) /hpf Ur Squamous Epith Cells (0-4) /hpf Amorphous Sediment (None) /hpf Urine Bacteria (None) /hpf Hyaline Casts (0-2) /lpf Urine Mucus (None) /hpf 03/24/18 03/24/18 03/24/18 Range/Units 01:59 03:08 04:10 WBC (3.8-10.6) k/uL Hgb (11.4-16.0) gm/dL MCH (25.0-35.0) pg MCHC (31.0-37.0) g/dL RDW (11.5-15.5) % Plt Count (150-450) k/uL Neutrophils # (Manual) (1.3-7.7) k/uL Monocytes # (Manual) (0-1.0) k/uL Metamyelocytes # (Man) (0) k/uL PT (9.0-12.0) sec INR (<1.2) APTT (22.0-30.0) sec ABG pH 7.06 L* (7.35-7.45) ABG pO2 167 H (83-108) mmHg ABG HCO3 11 L (21-25) mmol/L ABG Total CO2 12 L (19-24) mmol/L ABG O2 Saturation 99.0 H (94-97) % Sodium (137-145) mmol/L Carbon Dioxide (22-30) mmol/L BUN (7-17) mg/dL Creatinine (0.52-1.04) mg/dL Glucose (74-99) mg/dL POC Glucose (mg/dL) 143 H 137 H (75-99) mg/dL Plasma Lactic Acid Colby (0.7-2.0) mmol/L Calcium (8.4-10.2) mg/dL Phosphorus (2.5-4.5) mg/dL AST (14-36) U/L ALT (9-52) U/L Total Protein (6.3-8.2) g/dL Albumin (3.5-5.0) g/dL Lipase (23-300) U/L Urine Appearance (Clear) Urine Protein (Negative) Urine Ketones (Negative) Urine Blood (Negative) Ur Leukocyte Esterase (Negative) Urine WBC (0-5) /hpf Urine WBC Clumps (None) /hpf Ur Squamous Epith Cells (0-4) /hpf Amorphous Sediment (None) /hpf Urine Bacteria (None) /hpf Hyaline Casts (0-2) /lpf Urine Mucus (None) /hpf 03/24/18 03/24/18 03/24/18 Range/Units 04:51 04:51 04:51 WBC 26.7 H* (3.8-10.6) k/uL Hgb 10.8 L (11.4-16.0) gm/dL MCH 24.9 L (25.0-35.0) pg MCHC 27.2 L (31.0-37.0) g/dL RDW 16.2 H (11.5-15.5) % Plt Count (150-450) k/uL Neutrophils # (Manual) 24.50 H (1.3-7.7) k/uL Monocytes # (Manual) (0-1.0) k/uL Metamyelocytes # (Man) (0) k/uL PT (9.0-12.0) sec INR (<1.2) APTT (22.0-30.0) sec ABG pH (7.35-7.45) ABG pO2 (83-108) mmHg ABG HCO3 (21-25) mmol/L ABG Total CO2 (19-24) mmol/L ABG O2 Saturation (94-97) % Sodium (137-145) mmol/L Carbon Dioxide 10 L* (22-30) mmol/L BUN 29 H (7-17) mg/dL Creatinine 1.50 H (0.52-1.04) mg/dL Glucose 122 H (74-99) mg/dL POC Glucose (mg/dL) (75-99) mg/dL Plasma Lactic Acid Colby 13.6 H* (0.7-2.0) mmol/L Calcium 6.7 L (8.4-10.2) mg/dL Phosphorus 5.6 H (2.5-4.5) mg/dL AST 3121 H (14-36) U/L ALT 722 H (9-52) U/L Total Protein 4.3 L (6.3-8.2) g/dL Albumin 2.0 L (3.5-5.0) g/dL Lipase (23-300) U/L Urine Appearance (Clear) Urine Protein (Negative) Urine Ketones (Negative) Urine Blood (Negative) Ur Leukocyte Esterase (Negative) Urine WBC (0-5) /hpf Urine WBC Clumps (None) /hpf Ur Squamous Epith Cells (0-4) /hpf Amorphous Sediment (None) /hpf Urine Bacteria (None) /hpf Hyaline Casts (0-2) /lpf Urine Mucus (None) /hpf Microbiology - Last 24 Hours (Table) 03/23/18 17:13 Gram Stain - Preliminary Rectum Wound Culture - Preliminary 03/23/18 17:13 Gram Stain - Preliminary Peritoneal Fluid Body Fluid Culture - Preliminary 03/22/18 11:22 Urine Culture - Final Urine,Clean Catch 03/23/18 17:13 Anaerobic Culture - Preliminary Peritoneal Fluid 03/23/18 17:13 Anaerobic Culture - Preliminary Rectum Assessment and Plan Assessment: Assessment Postop day #1 status post cholecystectomy in bowel resection for ischemic bowel , with severe sepsis lactic acidemia and metabolic acidosis. Anion gap metabolic acidosis Septic hepatopathy versus shock liver Postoperative respiratory failure Severe stage III COPD History of non-small cell lung cancer with previous left lower lobectomy, 2003 Recent computed tomography scan revealing a right lower lobe mass abutting the pleural surface, strongly suspicious for recurrent bronchogenic carcinoma. Atrial fibrillation Pulmonary hypertension Diastolic CHF Diabetes mellitus Hyperlipidemia Hypertension History of meningitis Obesity Plan: Plan dated 03/24/2018 The patient's overall prognosis is very poor and the surgeon has spoken to the family. She remains in atrial fibrillation. Her lactic acid is present 13.6. She is on a D5W IV with 2 A of sodium bicarb at 150 mL an hour. She remains on the volume assist control mode, rate 20, tidal volume 350, FiO2 to be dropped to 30% with a PEEP of 5. She also remains on Cordarone drip at 25 mg/m. The heparin is off because of bleeding last night. She remains on propranolol at 25 mics per kilogram per minute and norepinephrine at 16 mcg/m. Again, taking her to the or be very risky and I would prefer that not happen. I don't know that it this patient can be salvaged at this point. I suspect she has additional ischemic bowel. Additional recommendations and suggestions are forthcoming. Labs x-rays a medications are all reviewed. Critical care time 34 minutes. Time with Patient: Greater than 30
--- NOTE | 2018-03-24 11:55 | P.PN ---
Subjective Progress Note Date: 03/24/18 This is a 72-year-old female with a past medical history of atrial fibrillation , coronary artery disease, congestive heart failure, COPD, diabetes mellitus, hyperlipidemia, hypertension, VRE in the urine. Patient presents to the emergency room with complaints of vomiting and diarrhea over the last 2 days. Patient also reporting a burning sensation in her stomach that has been ongoing since December. She takes Protonix for this. Patient reported that her stools were black. But she does take iron at home. She does usually have some issues with constipation in the past. And was supposed to have a colonoscopy outpatient. However, patient now reporting that she was told that she is too weak to proceed with colonoscopy. Stool for C. diff was negative. White count was elevated at 23.8 computed tomography scan of the abdomen multiple small bilateral renal calcifications. Large bowel fluid consistent with diarrhea. No free air. Dense pleural and pulmonary calcification in the left lower lobe is stable. And consistent with scarring. Stable sub-pleural nodular density in the lateral right lower lobe. CAT scan had also shown some gallbladder wall thickening. LFTs are normal. Amylase and lipase are normal. Surgical service has been consulted. Patient also had EKG changes with ST depression. Cardiology was consulted. Cardiology reported that the diffuse ST depression was noted on old EKG and more pronounced this time likely related to a faster rate. Patient denies any chest pain or shortness of breath. Denies any burning with urination or frequency or urgency. Patient does report dark or watery stools. And also reports a few scant episodes of blood in her vomit. Patient did have one emesis this morning that was mostly bile. And last stool was in the ER last night. 03/23/2018 Patient is seen at bedside having severe pain. Patient will be transferred to the ICU. will check lactic acid and repeat CBC, Dr. Bowman consulted for critical care management and for history of non-small cell lung Cancer with a previous left lower lobe resection. Plan for possible lap or open pepper on or Wednesday per Dr. Alvares. 03/24/2018. Patient is currently in the ICU on mechanical ventilation and Diprivan sedation. Patient underwent a laparotomy with open cholecystectomy, intraoperative cholangiogram, segmental small bowel resection yesterday with Dr. Alvares. Patient declined throughout the night requiring Levophed. Patient currently on 22mcg of Levo. Patient also went into A-Fib with RVR with HR in the 140's. Patient placed on Amiodorane and Heparin gtt. Heparin gtt has since been stopped due to bleeding present in the OG tube. Ph this AM 7.06 and carbon dioxide level of 10. Patient currently on bicarb gtt per critical care. Objective - Vital Signs Vital signs: Vital Signs Temp 98.8 F 03/24/18 04:00 Pulse 94 03/24/18 11:19 Resp 25 H 03/24/18 07:00 BP 106/41 03/24/18 07:00 Pulse Ox 100 03/24/18 07:00 Intake & Output 03/23/18 03/24/18 03/24/18 18:59 06:59 18:59 Intake Total 3800 6667.210 638.045 Output Total 2230 315 0 Balance 1570 6352.210 638.045 Weight 91.9 kg Intake: IV 3800 6200 150 Dextrose 5% in Water 1, 150 150 000 ml @ 150 mls/hr IV . Q7H20M BRITTANI with Sodium Bicarb (1 Meq/ml) 100 ml Rx#:[id number] Dextrose 5% in Water 100 300 ml @ 150 mls/hr IV .Q42M ONE with Amiodarone 150 mg Rx#:[id number] Lactated Ringers 1,000 ml 1600 2200 @ 150 mls/hr IV .Q6H40M COUNTS INCLUDE 234 BEDS AT THE [facility] Rx#:[id number] Meropenem 1 gm In Sodium 200 Chloride 0.9% 100 ml @ 200 mls/hr IVPB Q8H COUNTS INCLUDE 234 BEDS AT THE [facility] Rx#:[id number] Sodium Chloride 0.9% 1, 3000 000 ml @ 999 mls/hr IV . Q1H1M ONE Rx#:[id number] Vancomycin 1,000 mg In 250 Sodium Chloride 0.9% 250 ml @ 125 mls/hr IVPB ONCE STA Rx#:[id number] metroNIDAZOLE-NS PMX 500 100 mg In Saline 1 100ml.bag @ 100 mls/hr IVPB Q8H COUNTS INCLUDE 234 BEDS AT THE [facility] Rx#:[id number] Intake, IV Titration 467.210 488.045 Amount Amiodarone 450 mg In 224.445 Dextrose 5% in Water 250 ml @ 1 MG/MIN 34.53 mls/ hr IV .Q7H31M COUNTS INCLUDE 234 BEDS AT THE [facility] Rx#: [id number] Heparin Sodium,Porcine/ 150.333 D5w Pmx 25,000 unit In Dextrose/Water 1 500ml. bag @ 10 UNITS/KG/HR 19. 76 mls/hr IV .Q24H BRITTANI Rx #:[id number] Norepinephrin 4 mg-0.9% 250.00 206 Ns Pmx 4 mg In 250 ml @ Titrate IV .Q0M BRITTANI Rx#: [id number] Propofol 1,000 mg In 66.877 57.6 Empty Bag 1 bag @ Titrate IV .Q0M BRITTANI Rx#: [id number] Output: Gastric Drainage 250 Drainage 0 Right Abdomen 0 Urine 2180 65 0 Estimated Blood Loss 50 Other: Voiding Method Indwelling Catheter Indwelling Catheter # Voids 1 - Exam Head normocephalic Neck supple Lungs currently on mechanical ventilation. no wheezes or crackles Heart irregular rate and rhythm, no rub or gallop Abdomen wound vac in place. no bowel sounds present Extremities no edema Neuro patient currently intubated and on sedation - Labs CBC & Chem 7: 03/24/18 04:51 03/24/18 04:51 Labs: Abnormal Lab Results - Last 24 Hours (Table) 03/23/18 03/23/18 03/23/18 Range/Units 11:22 11:50 13:24 WBC (3.8-10.6) k/uL Hgb (11.4-16.0) gm/dL MCH (25.0-35.0) pg MCHC (31.0-37.0) g/dL RDW (11.5-15.5) % Neutrophils # (Manual) (1.3-7.7) k/uL PT 12.6 H (9.0-12.0) sec INR 1.3 H (<1.2) APTT (22.0-30.0) sec ABG pH (7.35-7.45) ABG pO2 (83-108) mmHg ABG HCO3 (21-25) mmol/L ABG Total CO2 (19-24) mmol/L ABG O2 Saturation (94-97) % Sodium (137-145) mmol/L Carbon Dioxide (22-30) mmol/L BUN (7-17) mg/dL Creatinine (0.52-1.04) mg/dL Glucose (74-99) mg/dL POC Glucose (mg/dL) 129 H (75-99) mg/dL Plasma Lactic Acid Colby 5.8 H* (0.7-2.0) mmol/L Calcium (8.4-10.2) mg/dL Phosphorus (2.5-4.5) mg/dL AST (14-36) U/L ALT (9-52) U/L Total Protein (6.3-8.2) g/dL Albumin (3.5-5.0) g/dL Urine Appearance (Clear) Urine Protein (Negative) Urine Ketones (Negative) Urine Blood (Negative) Ur Leukocyte Esterase (Negative) Urine WBC (0-5) /hpf Urine WBC Clumps (None) /hpf Ur Squamous Epith Cells (0-4) /hpf Amorphous Sediment (None) /hpf Urine Bacteria (None) /hpf Hyaline Casts (0-2) /lpf Urine Mucus (None) /hpf 03/23/18 03/23/18 03/23/18 Range/Units 18:30 19:23 19:29 WBC 35.5 H* (3.8-10.6) k/uL Hgb 10.8 L (11.4-16.0) gm/dL MCH (25.0-35.0) pg MCHC 27.8 L (31.0-37.0) g/dL RDW 16.1 H (11.5-15.5) % Neutrophils # (Manual) (1.3-7.7) k/uL PT (9.0-12.0) sec INR (<1.2) APTT (22.0-30.0) sec ABG pH (7.35-7.45) ABG pO2 >400 H (83-108) mmHg ABG HCO3 (21-25) mmol/L ABG Total CO2 25 H (19-24) mmol/L ABG O2 Saturation 100.0 H (94-97) % Sodium (137-145) mmol/L Carbon Dioxide (22-30) mmol/L BUN (7-17) mg/dL Creatinine (0.52-1.04) mg/dL Glucose (74-99) mg/dL POC Glucose (mg/dL) (75-99) mg/dL Plasma Lactic Acid Colby (0.7-2.0) mmol/L Calcium (8.4-10.2) mg/dL Phosphorus (2.5-4.5) mg/dL AST (14-36) U/L ALT (9-52) U/L Total Protein (6.3-8.2) g/dL Albumin (3.5-5.0) g/dL Urine Appearance Cloudy H (Clear) Urine Protein 2+ H (Negative) Urine Ketones Trace H (Negative) Urine Blood Small H (Negative) Ur Leukocyte Esterase Large H (Negative) Urine WBC >182 H (0-5) /hpf Urine WBC Clumps Many H (None) /hpf Ur Squamous Epith Cells 26 H (0-4) /hpf Amorphous Sediment Occasional H (None) /hpf Urine Bacteria Occasional H (None) /hpf Hyaline Casts 4 H (0-2) /lpf Urine Mucus Rare H (None) /hpf 03/23/18 03/23/18 03/23/18 Range/Units 19:29 20:31 22:07 WBC (3.8-10.6) k/uL Hgb (11.4-16.0) gm/dL MCH (25.0-35.0) pg MCHC (31.0-37.0) g/dL RDW (11.5-15.5) % Neutrophils # (Manual) (1.3-7.7) k/uL PT (9.0-12.0) sec INR (<1.2) APTT (22.0-30.0) sec ABG pH (7.35-7.45) ABG pO2 (83-108) mmHg ABG HCO3 (21-25) mmol/L ABG Total CO2 (19-24) mmol/L ABG O2 Saturation (94-97) % Sodium 136 L (137-145) mmol/L Carbon Dioxide 17 L (22-30) mmol/L BUN 33 H (7-17) mg/dL Creatinine (0.52-1.04) mg/dL Glucose (74-99) mg/dL POC Glucose (mg/dL) 71 L 54 L (75-99) mg/dL Plasma Lactic Acid Colby (0.7-2.0) mmol/L Calcium 7.2 L (8.4-10.2) mg/dL Phosphorus (2.5-4.5) mg/dL AST (14-36) U/L ALT (9-52) U/L Total Protein (6.3-8.2) g/dL Albumin (3.5-5.0) g/dL Urine Appearance (Clear) Urine Protein (Negative) Urine Ketones (Negative) Urine Blood (Negative) Ur Leukocyte Esterase (Negative) Urine WBC (0-5) /hpf Urine WBC Clumps (None) /hpf Ur Squamous Epith Cells (0-4) /hpf Amorphous Sediment (None) /hpf Urine Bacteria (None) /hpf Hyaline Casts (0-2) /lpf Urine Mucus (None) /hpf 03/23/18 03/24/18 03/24/18 Range/Units 22:24 00:02 00:53 WBC 36.5 H* (3.8-10.6) k/uL Hgb 10.5 L (11.4-16.0) gm/dL MCH (25.0-35.0) pg MCHC 28.6 L (31.0-37.0) g/dL RDW 16.4 H (11.5-15.5) % Neutrophils # (Manual) 33.90 H (1.3-7.7) k/uL PT 16.7 H (9.0-12.0) sec INR 1.8 H (<1.2) APTT 32.1 H (22.0-30.0) sec ABG pH (7.35-7.45) ABG pO2 (83-108) mmHg ABG HCO3 (21-25) mmol/L ABG Total CO2 (19-24) mmol/L ABG O2 Saturation (94-97) % Sodium (137-145) mmol/L Carbon Dioxide (22-30) mmol/L BUN (7-17) mg/dL Creatinine (0.52-1.04) mg/dL Glucose (74-99) mg/dL POC Glucose (mg/dL) 73 L (75-99) mg/dL Plasma Lactic Acid Colby (0.7-2.0) mmol/L Calcium (8.4-10.2) mg/dL Phosphorus (2.5-4.5) mg/dL AST (14-36) U/L ALT (9-52) U/L Total Protein (6.3-8.2) g/dL Albumin (3.5-5.0) g/dL Urine Appearance (Clear) Urine Protein (Negative) Urine Ketones (Negative) Urine Blood (Negative) Ur Leukocyte Esterase (Negative) Urine WBC (0-5) /hpf Urine WBC Clumps (None) /hpf Ur Squamous Epith Cells (0-4) /hpf Amorphous Sediment (None) /hpf Urine Bacteria (None) /hpf Hyaline Casts (0-2) /lpf Urine Mucus (None) /hpf 03/24/18 03/24/18 03/24/18 Range/Units 00:53 01:42 01:59 WBC (3.8-10.6) k/uL Hgb (11.4-16.0) gm/dL MCH (25.0-35.0) pg MCHC (31.0-37.0) g/dL RDW (11.5-15.5) % Neutrophils # (Manual) (1.3-7.7) k/uL PT (9.0-12.0) sec INR (<1.2) APTT (22.0-30.0) sec ABG pH (7.35-7.45) ABG pO2 (83-108) mmHg ABG HCO3 (21-25) mmol/L ABG Total CO2 (19-24) mmol/L ABG O2 Saturation (94-97) % Sodium (137-145) mmol/L Carbon Dioxide (22-30) mmol/L BUN (7-17) mg/dL Creatinine (0.52-1.04) mg/dL Glucose (74-99) mg/dL POC Glucose (mg/dL) 69 L 143 H (75-99) mg/dL Plasma Lactic Acid Colby 10.8 H* (0.7-2.0) mmol/L Calcium (8.4-10.2) mg/dL Phosphorus (2.5-4.5) mg/dL AST (14-36) U/L ALT (9-52) U/L Total Protein (6.3-8.2) g/dL Albumin (3.5-5.0) g/dL Urine Appearance (Clear) Urine Protein (Negative) Urine Ketones (Negative) Urine Blood (Negative) Ur Leukocyte Esterase (Negative) Urine WBC (0-5) /hpf Urine WBC Clumps (None) /hpf Ur Squamous Epith Cells (0-4) /hpf Amorphous Sediment (None) /hpf Urine Bacteria (None) /hpf Hyaline Casts (0-2) /lpf Urine Mucus (None) /hpf 03/24/18 03/24/18 03/24/18 Range/Units 03:08 04:10 04:51 WBC 26.7 H* (3.8-10.6) k/uL Hgb 10.8 L (11.4-16.0) gm/dL MCH 24.9 L (25.0-35.0) pg MCHC 27.2 L (31.0-37.0) g/dL RDW 16.2 H (11.5-15.5) % Neutrophils # (Manual) 24.50 H (1.3-7.7) k/uL PT (9.0-12.0) sec INR (<1.2) APTT (22.0-30.0) sec ABG pH 7.06 L* (7.35-7.45) ABG pO2 167 H (83-108) mmHg ABG HCO3 11 L (21-25) mmol/L ABG Total CO2 12 L (19-24) mmol/L ABG O2 Saturation 99.0 H (94-97) % Sodium (137-145) mmol/L Carbon Dioxide (22-30) mmol/L BUN (7-17) mg/dL Creatinine (0.52-1.04) mg/dL Glucose (74-99) mg/dL POC Glucose (mg/dL) 137 H (75-99) mg/dL Plasma Lactic Acid Colby (0.7-2.0) mmol/L Calcium (8.4-10.2) mg/dL Phosphorus (2.5-4.5) mg/dL AST (14-36) U/L ALT (9-52) U/L Total Protein (6.3-8.2) g/dL Albumin (3.5-5.0) g/dL Urine Appearance (Clear) Urine Protein (Negative) Urine Ketones (Negative) Urine Blood (Negative) Ur Leukocyte Esterase (Negative) Urine WBC (0-5) /hpf Urine WBC Clumps (None) /hpf Ur Squamous Epith Cells (0-4) /hpf Amorphous Sediment (None) /hpf Urine Bacteria (None) /hpf Hyaline Casts (0-2) /lpf Urine Mucus (None) /hpf 03/24/18 03/24/18 Range/Units 04:51 04:51 WBC (3.8-10.6) k/uL Hgb (11.4-16.0) gm/dL MCH (25.0-35.0) pg MCHC (31.0-37.0) g/dL RDW (11.5-15.5) % Neutrophils # (Manual) (1.3-7.7) k/uL PT (9.0-12.0) sec INR (<1.2) APTT (22.0-30.0) sec ABG pH (7.35-7.45) ABG pO2 (83-108) mmHg ABG HCO3 (21-25) mmol/L ABG Total CO2 (19-24) mmol/L ABG O2 Saturation (94-97) % Sodium (137-145) mmol/L Carbon Dioxide 10 L* (22-30) mmol/L BUN 29 H (7-17) mg/dL Creatinine 1.50 H (0.52-1.04) mg/dL Glucose 122 H (74-99) mg/dL POC Glucose (mg/dL) (75-99) mg/dL Plasma Lactic Acid Colby 13.6 H* (0.7-2.0) mmol/L Calcium 6.7 L (8.4-10.2) mg/dL Phosphorus 5.6 H (2.5-4.5) mg/dL AST 3121 H (14-36) U/L ALT 722 H (9-52) U/L Total Protein 4.3 L (6.3-8.2) g/dL Albumin 2.0 L (3.5-5.0) g/dL Urine Appearance (Clear) Urine Protein (Negative) Urine Ketones (Negative) Urine Blood (Negative) Ur Leukocyte Esterase (Negative) Urine WBC (0-5) /hpf Urine WBC Clumps (None) /hpf Ur Squamous Epith Cells (0-4) /hpf Amorphous Sediment (None) /hpf Urine Bacteria (None) /hpf Hyaline Casts (0-2) /lpf Urine Mucus (None) /hpf Microbiology - Last 24 Hours (Table) 03/23/18 17:13 Gram Stain - Preliminary Rectum Wound Culture - Preliminary 03/23/18 17:13 Gram Stain - Preliminary Peritoneal Fluid Body Fluid Culture - Preliminary 03/22/18 11:22 Urine Culture - Final Urine,Clean Catch 03/23/18 17:13 Anaerobic Culture - Preliminary Peritoneal Fluid 03/23/18 17:13 Anaerobic Culture - Preliminary Rectum Assessment and Plan Assessment: 1. Acute cholecystits, ischemic bowel. ostop day #1 status post cholecystectomy in bowel resection for ischemic bowel, with severe sepsis lactic acidemia and metabolic acidosis. WBC 26.7, ph 7.06, Carbon Dioxide 10, lactic acid 13.6. Patient currently on Levophed and bicarb gtt. Patient currently on Flagyl and Merrem for Antibiotics. Continue Critical Care management. 2. Septic hepatopathy versus shock liver. AST 3121, ALT 722 3. Postoperative respiratory failure- currently on mechanical ventilation managed by Critical Care. Currently on diprivan gtt for sedation 4. History of non-small cell lung cancer with previous left lower lobectomy, 2003 5. Acute Kidney Injury- BUN 29, Creat 1.5. 6. Diffuse ST depression on EKG. Patient evaluated by cardiology service and felt this is also noted on her old EKGs and likely more pronounced due to faster heart rate. Echocardiogram completed EF 55-60%. 7. History of COPD 8. History of chronic persistent atrial fibrillation with controlled rate. Patient went into A-fib with RVR with HR in the 140's last night. Patient started on Amiodorone and Heparin gtt. Heparin gtt stopped due to bleeding from OG tube 9. Essential hypertension 10. Hyperlipidemia 11. Diabetes mellitus, insulin-dependent. Resume home insulin. sliding scale coverage added. 12. History of coronary artery disease and cardiac stent DVT prophylaxis SCD and GI prophylaxis Protonix Dr. Bowman and Dr. Alvares discussed case with family. Patient condition remains guarded
[2018-03-24 11:58] LABS: Glucose,Whole Blood 134 mg/dL (75-99)
--- NOTE | 2018-03-24 13:05 | P.PN ---
Subjective Progress Note Date: 03/24/18 Principal diagnosis: Acute cholecystitis, ischemic bowel, sepsis with Sirs The patient is postoperative day one open cholecystectomy and small bowel resection. Medically she declined overnight. She had atrial fibrillation with rapid ventricular response. Patient was hypotensive and found to be severely acidotic. Currently sedated on the ventilator. Objective - Vital Signs Vital signs: Vital Signs Temp 98.8 F 03/24/18 04:00 Pulse 96 03/24/18 11:30 Resp 25 H 03/24/18 07:00 BP 106/41 03/24/18 07:00 Pulse Ox 100 03/24/18 07:00 Intake & Output 03/23/18 03/24/18 03/24/18 18:59 06:59 18:59 Intake Total 3800 6667.210 638.045 Output Total 2230 315 0 Balance 1570 6352.210 638.045 Weight 91.9 kg Intake: IV 3800 6200 150 Dextrose 5% in Water 1, 150 150 000 ml @ 150 mls/hr IV . Q7H20M [facility] with Sodium Bicarb (1 Meq/ml) 100 ml Rx#:[id number] Dextrose 5% in Water 100 300 ml @ 150 mls/hr IV .Q42M ONE with Amiodarone 150 mg Rx#:[id number] Lactated Ringers 1,000 ml 1600 2200 @ 150 mls/hr IV .Q6H40M [facility] Rx#:[id number] Meropenem 1 gm In Sodium 200 Chloride 0.9% 100 ml @ 200 mls/hr IVPB Q8H [facility] Rx#:[id number] Sodium Chloride 0.9% 1, 3000 000 ml @ 999 mls/hr IV . Q1H1M [facility] Rx#:[id number] Vancomycin 1,000 mg In 250 Sodium Chloride 0.9% 250 ml @ 125 mls/hr IVPB ONCE STA Rx#:[id number] metroNIDAZOLE-NS PMX 500 100 mg In Saline 1 100ml.bag @ 100 mls/hr IVPB Q8H [facility] Rx#:[id number] Intake, IV Titration 467.210 488.045 Amount Amiodarone 450 mg In 224.445 Dextrose 5% in Water 250 ml @ 1 MG/MIN 34.53 mls/ hr IV .Q7H31M [facility] Rx#: [id number] Heparin Sodium,Porcine/ 150.333 D5w Pmx 25,000 unit In Dextrose/Water 1 500ml. bag @ 10 UNITS/KG/HR 19. 76 mls/hr IV .Q24H [facility] Rx #:[id number] Norepinephrin 4 mg-0.9% 250.00 206 Ns Pmx 4 mg In 250 ml @ Titrate IV .Q0M [facility] Rx#: [id number] Propofol 1,000 mg In 66.877 57.6 Empty Bag 1 bag @ Titrate IV .Q0M [facility] Rx#: [id number] Output: Gastric Drainage 250 Drainage 0 Right Abdomen 0 Urine 2180 65 0 Estimated Blood Loss 50 Other: Voiding Method Indwelling Catheter Indwelling Catheter # Voids 1 - Constitutional Constitutional Comment(s): Endotracheal tube in place. Nasogastric tube draining bilious fluid. ALFRED drain is serous possibly some bile staining. Wound VAC is in place draining serosanguineous fluid. - Respiratory Respiratory: bilateral: CTA, negative: wheezing - Cardiovascular Rhythm: irregularly irregular - Gastrointestinal Gastrointestinal Comment(s): Wound VAC is in place. No abdominal wall cellulitis. Abdomen is fairly soft. General gastrointestinal: Present: soft - Neurologic Neurologic Comment(s): Sedated on the ventilator - Labs CBC & Chem 7: 03/24/18 04:51 03/24/18 04:51 Labs: Abnormal Lab Results - Last 24 Hours (Table) 03/23/18 03/23/18 03/23/18 Range/Units 13:24 18:30 19:23 WBC (3.8-10.6) k/uL Hgb (11.4-16.0) gm/dL MCH (25.0-35.0) pg MCHC (31.0-37.0) g/dL RDW (11.5-15.5) % Neutrophils # (Manual) (1.3-7.7) k/uL PT (9.0-12.0) sec INR (<1.2) APTT (22.0-30.0) sec ABG pH (7.35-7.45) ABG pO2 >400 H (83-108) mmHg ABG HCO3 (21-25) mmol/L ABG Total CO2 25 H (19-24) mmol/L ABG O2 Saturation 100.0 H (94-97) % Sodium (137-145) mmol/L Carbon Dioxide (22-30) mmol/L BUN (7-17) mg/dL Creatinine (0.52-1.04) mg/dL Glucose (74-99) mg/dL POC Glucose (mg/dL) (75-99) mg/dL Plasma Lactic Acid Colby 5.8 H* (0.7-2.0) mmol/L Calcium (8.4-10.2) mg/dL Phosphorus (2.5-4.5) mg/dL AST (14-36) U/L ALT (9-52) U/L Total Protein (6.3-8.2) g/dL Albumin (3.5-5.0) g/dL Urine Appearance Cloudy H (Clear) Urine Protein 2+ H (Negative) Urine Ketones Trace H (Negative) Urine Blood Small H (Negative) Ur Leukocyte Esterase Large H (Negative) Urine WBC >182 H (0-5) /hpf Urine WBC Clumps Many H (None) /hpf Ur Squamous Epith Cells 26 H (0-4) /hpf Amorphous Sediment Occasional H (None) /hpf Urine Bacteria Occasional H (None) /hpf Hyaline Casts 4 H (0-2) /lpf Urine Mucus Rare H (None) /hpf 03/23/18 03/23/18 03/23/18 Range/Units 19:29 19:29 20:31 WBC 35.5 H* (3.8-10.6) k/uL Hgb 10.8 L (11.4-16.0) gm/dL MCH (25.0-35.0) pg MCHC 27.8 L (31.0-37.0) g/dL RDW 16.1 H (11.5-15.5) % Neutrophils # (Manual) (1.3-7.7) k/uL PT (9.0-12.0) sec INR (<1.2) APTT (22.0-30.0) sec ABG pH (7.35-7.45) ABG pO2 (83-108) mmHg ABG HCO3 (21-25) mmol/L ABG Total CO2 (19-24) mmol/L ABG O2 Saturation (94-97) % Sodium 136 L (137-145) mmol/L Carbon Dioxide 17 L (22-30) mmol/L BUN 33 H (7-17) mg/dL Creatinine (0.52-1.04) mg/dL Glucose (74-99) mg/dL POC Glucose (mg/dL) 71 L (75-99) mg/dL Plasma Lactic Acid Colby (0.7-2.0) mmol/L Calcium 7.2 L (8.4-10.2) mg/dL Phosphorus (2.5-4.5) mg/dL AST (14-36) U/L ALT (9-52) U/L Total Protein (6.3-8.2) g/dL Albumin (3.5-5.0) g/dL Urine Appearance (Clear) Urine Protein (Negative) Urine Ketones (Negative) Urine Blood (Negative) Ur Leukocyte Esterase (Negative) Urine WBC (0-5) /hpf Urine WBC Clumps (None) /hpf Ur Squamous Epith Cells (0-4) /hpf Amorphous Sediment (None) /hpf Urine Bacteria (None) /hpf Hyaline Casts (0-2) /lpf Urine Mucus (None) /hpf 03/23/18 03/23/18 03/24/18 Range/Units 22:07 22:24 00:02 WBC 36.5 H* (3.8-10.6) k/uL Hgb 10.5 L (11.4-16.0) gm/dL MCH (25.0-35.0) pg MCHC 28.6 L (31.0-37.0) g/dL RDW 16.4 H (11.5-15.5) % Neutrophils # (Manual) 33.90 H (1.3-7.7) k/uL PT (9.0-12.0) sec INR (<1.2) APTT (22.0-30.0) sec ABG pH (7.35-7.45) ABG pO2 (83-108) mmHg ABG HCO3 (21-25) mmol/L ABG Total CO2 (19-24) mmol/L ABG O2 Saturation (94-97) % Sodium (137-145) mmol/L Carbon Dioxide (22-30) mmol/L BUN (7-17) mg/dL Creatinine (0.52-1.04) mg/dL Glucose (74-99) mg/dL POC Glucose (mg/dL) 54 L 73 L (75-99) mg/dL Plasma Lactic Acid Colby (0.7-2.0) mmol/L Calcium (8.4-10.2) mg/dL Phosphorus (2.5-4.5) mg/dL AST (14-36) U/L ALT (9-52) U/L Total Protein (6.3-8.2) g/dL Albumin (3.5-5.0) g/dL Urine Appearance (Clear) Urine Protein (Negative) Urine Ketones (Negative) Urine Blood (Negative) Ur Leukocyte Esterase (Negative) Urine WBC (0-5) /hpf Urine WBC Clumps (None) /hpf Ur Squamous Epith Cells (0-4) /hpf Amorphous Sediment (None) /hpf Urine Bacteria (None) /hpf Hyaline Casts (0-2) /lpf Urine Mucus (None) /hpf 03/24/18 03/24/18 03/24/18 Range/Units 00:53 00:53 01:42 WBC (3.8-10.6) k/uL Hgb (11.4-16.0) gm/dL MCH (25.0-35.0) pg MCHC (31.0-37.0) g/dL RDW (11.5-15.5) % Neutrophils # (Manual) (1.3-7.7) k/uL PT 16.7 H (9.0-12.0) sec INR 1.8 H (<1.2) APTT 32.1 H (22.0-30.0) sec ABG pH (7.35-7.45) ABG pO2 (83-108) mmHg ABG HCO3 (21-25) mmol/L ABG Total CO2 (19-24) mmol/L ABG O2 Saturation (94-97) % Sodium (137-145) mmol/L Carbon Dioxide (22-30) mmol/L BUN (7-17) mg/dL Creatinine (0.52-1.04) mg/dL Glucose (74-99) mg/dL POC Glucose (mg/dL) 69 L (75-99) mg/dL Plasma Lactic Acid Colby 10.8 H* (0.7-2.0) mmol/L Calcium (8.4-10.2) mg/dL Phosphorus (2.5-4.5) mg/dL AST (14-36) U/L ALT (9-52) U/L Total Protein (6.3-8.2) g/dL Albumin (3.5-5.0) g/dL Urine Appearance (Clear) Urine Protein (Negative) Urine Ketones (Negative) Urine Blood (Negative) Ur Leukocyte Esterase (Negative) Urine WBC (0-5) /hpf Urine WBC Clumps (None) /hpf Ur Squamous Epith Cells (0-4) /hpf Amorphous Sediment (None) /hpf Urine Bacteria (None) /hpf Hyaline Casts (0-2) /lpf Urine Mucus (None) /hpf 03/24/18 03/24/18 03/24/18 Range/Units 01:59 03:08 04:10 WBC (3.8-10.6) k/uL Hgb (11.4-16.0) gm/dL MCH (25.0-35.0) pg MCHC (31.0-37.0) g/dL RDW (11.5-15.5) % Neutrophils # (Manual) (1.3-7.7) k/uL PT (9.0-12.0) sec INR (<1.2) APTT (22.0-30.0) sec ABG pH 7.06 L* (7.35-7.45) ABG pO2 167 H (83-108) mmHg ABG HCO3 11 L (21-25) mmol/L ABG Total CO2 12 L (19-24) mmol/L ABG O2 Saturation 99.0 H (94-97) % Sodium (137-145) mmol/L Carbon Dioxide (22-30) mmol/L BUN (7-17) mg/dL Creatinine (0.52-1.04) mg/dL Glucose (74-99) mg/dL POC Glucose (mg/dL) 143 H 137 H (75-99) mg/dL Plasma Lactic Acid Colby (0.7-2.0) mmol/L Calcium (8.4-10.2) mg/dL Phosphorus (2.5-4.5) mg/dL AST (14-36) U/L ALT (9-52) U/L Total Protein (6.3-8.2) g/dL Albumin (3.5-5.0) g/dL Urine Appearance (Clear) Urine Protein (Negative) Urine Ketones (Negative) Urine Blood (Negative) Ur Leukocyte Esterase (Negative) Urine WBC (0-5) /hpf Urine WBC Clumps (None) /hpf Ur Squamous Epith Cells (0-4) /hpf Amorphous Sediment (None) /hpf Urine Bacteria (None) /hpf Hyaline Casts (0-2) /lpf Urine Mucus (None) /hpf 03/24/18 03/24/18 03/24/18 Range/Units 04:51 04:51 04:51 WBC 26.7 H* (3.8-10.6) k/uL Hgb 10.8 L (11.4-16.0) gm/dL MCH 24.9 L (25.0-35.0) pg MCHC 27.2 L (31.0-37.0) g/dL RDW 16.2 H (11.5-15.5) % Neutrophils # (Manual) 24.50 H (1.3-7.7) k/uL PT (9.0-12.0) sec INR (<1.2) APTT (22.0-30.0) sec ABG pH (7.35-7.45) ABG pO2 (83-108) mmHg ABG HCO3 (21-25) mmol/L ABG Total CO2 (19-24) mmol/L ABG O2 Saturation (94-97) % Sodium (137-145) mmol/L Carbon Dioxide 10 L* (22-30) mmol/L BUN 29 H (7-17) mg/dL Creatinine 1.50 H (0.52-1.04) mg/dL Glucose 122 H (74-99) mg/dL POC Glucose (mg/dL) (75-99) mg/dL Plasma Lactic Acid Colby 13.6 H* (0.7-2.0) mmol/L Calcium 6.7 L (8.4-10.2) mg/dL Phosphorus 5.6 H (2.5-4.5) mg/dL AST 3121 H (14-36) U/L ALT 722 H (9-52) U/L Total Protein 4.3 L (6.3-8.2) g/dL Albumin 2.0 L (3.5-5.0) g/dL Urine Appearance (Clear) Urine Protein (Negative) Urine Ketones (Negative) Urine Blood (Negative) Ur Leukocyte Esterase (Negative) Urine WBC (0-5) /hpf Urine WBC Clumps (None) /hpf Ur Squamous Epith Cells (0-4) /hpf Amorphous Sediment (None) /hpf Urine Bacteria (None) /hpf Hyaline Casts (0-2) /lpf Urine Mucus (None) /hpf 03/24/18 Range/Units 11:55 WBC (3.8-10.6) k/uL Hgb (11.4-16.0) gm/dL MCH (25.0-35.0) pg MCHC (31.0-37.0) g/dL RDW (11.5-15.5) % Neutrophils # (Manual) (1.3-7.7) k/uL PT (9.0-12.0) sec INR (<1.2) APTT (22.0-30.0) sec ABG pH (7.35-7.45) ABG pO2 (83-108) mmHg ABG HCO3 (21-25) mmol/L ABG Total CO2 (19-24) mmol/L ABG O2 Saturation (94-97) % Sodium (137-145) mmol/L Carbon Dioxide (22-30) mmol/L BUN (7-17) mg/dL Creatinine (0.52-1.04) mg/dL Glucose (74-99) mg/dL POC Glucose (mg/dL) 134 H (75-99) mg/dL Plasma Lactic Acid Colby (0.7-2.0) mmol/L Calcium (8.4-10.2) mg/dL Phosphorus (2.5-4.5) mg/dL AST (14-36) U/L ALT (9-52) U/L Total Protein (6.3-8.2) g/dL Albumin (3.5-5.0) g/dL Urine Appearance (Clear) Urine Protein (Negative) Urine Ketones (Negative) Urine Blood (Negative) Ur Leukocyte Esterase (Negative) Urine WBC (0-5) /hpf Urine WBC Clumps (None) /hpf Ur Squamous Epith Cells (0-4) /hpf Amorphous Sediment (None) /hpf Urine Bacteria (None) /hpf Hyaline Casts (0-2) /lpf Urine Mucus (None) /hpf Microbiology - Last 24 Hours (Table) 03/23/18 17:13 Gram Stain - Preliminary Rectum Wound Culture - Preliminary 03/23/18 17:13 Gram Stain - Preliminary Peritoneal Fluid Body Fluid Culture - Preliminary 03/22/18 11:22 Urine Culture - Final Urine,Clean Catch 03/23/18 17:13 Anaerobic Culture - Preliminary Peritoneal Fluid 03/23/18 17:13 Anaerobic Culture - Preliminary Rectum Assessment and Plan (1) Acute cholecystitis Current Visit: No Status: Acute Code(s): K81.0 - ACUTE CHOLECYSTITIS SNOMED Code(s): 59810515 (2) Leukocytosis (leucocytosis) Current Visit: No Status: Acute Code(s): D72.829 - ELEVATED WHITE BLOOD CELL COUNT, UNSPECIFIED SNOMED Code(s): 536510314 (3) UTI (urinary tract infection) Current Visit: No Status: Acute Code(s): N39.0 - URINARY TRACT INFECTION, SITE NOT SPECIFIED SNOMED Code(s): 20136535 (4) Ischemic necrosis of small bowel Current Visit: Yes Status: Acute Code(s): K55.029 - ACUTE INFARCTION OF SMALL INTESTINE, EXTENT UNSPECIFIED SNOMED Code(s): 612200248 (5) Acidosis, lactic Current Visit: Yes Status: Acute Code(s): E87.2 - ACIDOSIS SNOMED Code(s) : 88070941 (6) Sepsis Current Visit: No Status: Acute Code(s): A41.9 - SEPSIS, UNSPECIFIED ORGANISM SNOMED Code(s): 92211997 (7) Atrial fibrillation with RVR Current Visit: No Status: Chronic Code(s): I48.91 - UNSPECIFIED ATRIAL FIBRILLATION SNOMED Code(s): 551154430135661 Plan: The patient is doing very poorly. She severely acidotic and requiring medications to control her heart rate and her blood pressure. SHe is on broad- spectrum antibiotics. Case was discussed with Dr. Bowman, patient's daughter and significant other. Currently she is not stable to go to the operating room. Her overall prognosis is poor. If she shows signs of improvement, she may go back to the OR for second look laparotomy.
[2018-03-24 15:46] LABS: Glucose,Whole Blood 124 mg/dL (75-99)
--- NOTE | 2018-03-24 16:09 | PN ---
PROGRESS NOTE Arminda Tavarez was transferred from the 4th floor for atrial fibrillation. She is not doing well. She has multiple medical problems. She is on IV amiodarone for now. Her rates are now better controlled in the 80s. However, her Levophed leads have increased and she is on 40 mics at this time. Her blood pressure is in the 90s on pressors. High-dose pressors. Pulse rate in the 80s. Breath sounds are reduced bilaterally and heart sounds are irregular but soft. IMPRESSION: 1. Atrial fibrillation with a controlled ventricular response on IV amiodarone. 2. Multisystem organ failure with multiple medical problems. Continue IV amiodarone at the lower dose today and we will switch to amiodarone via PEG tube tomorrow. I would agree with comfort care measures. MMODL / IJN: [id number] /
[2018-03-24 17:45] LABS: Glucose,Whole Blood 128 mg/dL (75-99)
[2018-03-24 20:13] LABS: Glucose,Whole Blood 131 mg/dL (75-99)
[2018-03-24] MEDS: INSULIN DETEMIR 100 UNIT/ML 10 ML VIAL SQ SCH (20:19)
[2018-03-24 23:48] LABS: Glucose,Whole Blood 140 mg/dL (75-99)
[2018-03-25 00:07] VITALS: BP 78/50; TEMP 95.3
[2018-03-25 01:51] VITALS: PULSE 42; RESP 25
--- NOTE | 2018-03-29 14:57 | P.DS ---
Providers Date of admission: 03/22/18 17:10 Expected date of discharge: 03/25/18 Attending physician: Ramonita Sorenson Consults: 03/21/18 23:27 Consult Physician Routine Consulting Provider: Pablo Veliz Consult Reason/Comments: epigastric pain. Do you want consulting provider notified?: Yes 03/21/18 23:58 Consult Physician Routine Consulting Provider: Rohini Alvares Consult Reason/Comments: abdominal pain Do you want consulting provider notified?: Yes 03/22/18 13:38 Consult Physician Routine Consulting Provider: Sabina Collins Consult Reason/Comments: dilated common bile duct on US Do you want consulting provider notified?: Yes 03/23/18 09:25 Consult Physician Routine Consulting Provider: Tip Bowman Consult Reason/Comments: lung mass Do you want consulting provider notified?: Yes Primary care physician: Mariaa Chery Hospital Course: Summary and diagnosis Preliminary cause of : Sepsis due to acute cholecystitis and ischemic bowel 1. Acute cholecystits, ischemic bowel with severe sepsis, lactic acidemia and metabolic acidosis. status post cholecystectomy in bowel resection for ischemic bowel 2. Multiorgan failure 3. Acute respiratory failure in the postoperative period secondary to sepsis with septic shock 4. History of non-small cell lung cancer with previous left lower lobectomy, 2003 5. Acute Kidney Injury- BUN 29, Creat 1.5. 6. Diffuse ST depression on EKG. Patient evaluated by cardiology service and felt this is also noted on her old EKGs and likely more pronounced due to faster heart rate. Echocardiogram completed EF 55-60%. 7. History of COPD 8. History of chronic persistent atrial fibrillation with controlled rate. Patient went into A-fib with RVR with HR in the 140's last night. Patient started on Amiodorone and Heparin gtt. Heparin gtt stopped due to bleeding from OG tube 9. Essential hypertension 10. Hyperlipidemia 11. Diabetes mellitus, insulin-dependent. Resume home insulin. sliding scale coverage added. 12. History of coronary artery disease and cardiac stent 13. Chronic persistent atrial fibrillation with episodes of rapid ventricular response Hospital course This is a 72-year-old female with a past medical history of atrial fibrillation , coronary artery disease, congestive heart failure, COPD, diabetes mellitus, hyperlipidemia, hypertension, VRE in the urine. Patient presents to the emergency room with complaints of vomiting and diarrhea over the last 2 days. Patient also reporting a burning sensation in her stomach that has been ongoing since December. She takes Protonix for this. Patient reported that her stools were black. But she does take iron at home. She does usually have some issues with constipation in the past. And was supposed to have a colonoscopy outpatient. However, patient now reporting that she was told that she is too weak to proceed with colonoscopy. Stool for C. diff was negative. White count was elevated at 23.8 computed tomography scan of the abdomen multiple small bilateral renal calcifications. Large bowel fluid consistent with diarrhea. No free air. Dense pleural and pulmonary calcification in the left lower lobe is stable. And consistent with scarring. Stable sub-pleural nodular density in the lateral right lower lobe. CAT scan had also shown some gallbladder wall thickening. LFTs are normal. Amylase and lipase are normal. Surgical service has been consulted. Patient also had EKG changes with ST depression. Cardiology was consulted. Cardiology reported that the diffuse ST depression was noted on old EKG and more pronounced this time likely related to a faster rate. Patient denies any chest pain or shortness of breath. Denies any burning with urination or frequency or urgency. Patient does report dark or watery stools. And also reports a few scant episodes of blood in her vomit. Patient did have one emesis this morning that was mostly bile. And last stool was in the ER last night. 03/23/2018 Patient is seen at bedside having severe pain. Patient will be transferred to the ICU. will check lactic acid and repeat CBC, Dr. Bowman consulted for critical care management and for history of non-small cell lung Cancer with a previous left lower lobe resection. Plan for possible lap or open pepper on or Wednesday per Dr. Alvares. 03/24/2018. Patient is currently in the ICU on mechanical ventilation and Diprivan sedation. Patient underwent a laparotomy with open cholecystectomy, intraoperative cholangiogram, segmental small bowel resection yesterday with Dr. Alvares. Patient declined throughout the night requiring Levophed. Patient currently on 22mcg of Levo. Patient also went into A-Fib with RVR with HR in the 140's. Patient placed on Amiodorane and Heparin gtt. Heparin gtt has since been stopped due to bleeding present in the OG tube. Ph this AM 7.06 and carbon dioxide level of 10. Patient currently on bicarb gtt per critical care. Patient's overall condition was very poor and guarded. She was on mechanical ventilation requiring Levophed. Also on IV amiodarone. Patient had undergone cholecystectomy and bowel resection for her acute colitis and ischemic bowel. She currently had a wound VAC in place and had remained open for possibly undergoing another surgery. However he shouldn't was not stable to proceed with another surgery. Patient continued to become hypotensive. Systolic blood pressure was in the 60s to 70s and not responding. Patient's family had been performed earlier by critical care service and surgical service about patient's overall poor prognosis. Again patient's blood pressure continued to worsen even after treatment. Patient then on 03/25/2018. Please refer to chart for any further details. Patient Condition at Discharge: Undetermined Plan - Discharge Summary New Discharge Prescriptions: No Action Cyanocobalamin [Vitamin B-12] 500 mcg PO DAILY Cholecalciferol [Vitamin D3] 4,000 unit PO HS Atorvastatin [Lipitor] 40 mg PO HS Glimepiride [Amaryl] 4 mg PO AC-BID Loratadine [Claritin] 10 mg PO DAILY Albuterol Inhaler [Ventolin Hfa Inhaler] 2 puff INHALATION RT-BID Apixaban [Eliquis] 5 mg PO BID #60 tab Pantoprazole Sodium [Protonix] 40 mg PO BID #60 tablet.dr Ferrous Sulfate [Iron (65 MG Elemental)] 325 mg PO BID tab Ipratropium-Albuterol Nebulize [Duoneb 0.5 mg-3 mg/3 ml Soln] 3 ml INHALATION RT-QID ampul.neb Polyethylene Glycol 3350 [Miralax] 17 gm PO DAILY #30 packet Gabapentin [Neurontin] 800 mg PO Q8H Metoprolol Succinate (ER) [Toprol XL] 50 mg PO DAILY #30 tab.er.24h Furosemide [Lasix] 40 mg PO DAILY tab Insulin Detemir [Levemir] 18 unit SQ HS syr Acetaminophen Tab [Tylenol] 500 mg PO Q6HR PRN PRN Reason: Fever and/ or Mild Pain Losartan Potassium [Cozaar] 100 mg PO DAILY Diltiazem Oral [Cardizem*] 60 mg PO Q8H Docusate [Colace] 100 mg PO HS Glycerin Adult Suppository 1 supp RECTAL DAILY Magnesium Hydroxide [Milk of Magnesia Concentrate] 2,400 mg PO DAILY PRN PRN Reason: Constipation Insulin Aspart [NovoLOG (formulary)] 3 unit SQ ACHS Sennosides-Docusate Sodium [Senokot-S] 2 tab PO BID Discharge Medication List Atorvastatin [Lipitor] 40 mg PO HS 11/17/16 [History] Cholecalciferol [Vitamin D3] 4,000 unit PO HS 11/17/16 [History] Cyanocobalamin [Vitamin B-12] 500 mcg PO DAILY 11/17/16 [History] Glimepiride [Amaryl] 4 mg PO AC-BID 11/17/16 [History] Albuterol Inhaler [Ventolin Hfa Inhaler] 2 puff INHALATION RT-BID 07/22/17 [ History] Loratadine [Claritin] 10 mg PO DAILY 07/22/17 [History] Apixaban [Eliquis] 5 mg PO BID #60 tab 08/02/17 [Rx] Pantoprazole Sodium [Protonix] 40 mg PO BID #60 tablet.dr 01/05/18 [Rx] Ferrous Sulfate [Iron (65 MG Elemental)] 325 mg PO BID tab 02/01/18 [Rx] Ipratropium-Albuterol Nebulize [Duoneb 0.5 mg-3 mg/3 ml Soln] 3 ml INHALATION RT -QID ampul.neb 02/01/18 [Rx] Polyethylene Glycol 3350 [Miralax] 17 gm PO DAILY #30 packet 02/03/18 [Rx] Gabapentin [Neurontin] 800 mg PO Q8H 02/07/18 [History] Metoprolol Succinate (ER) [Toprol XL] 50 mg PO DAILY #30 tab.er.24h 02/15/18 [Rx ] Furosemide [Lasix] 40 mg PO DAILY tab 02/16/18 [Rx] Insulin Detemir [Levemir] 18 unit SQ HS syr 02/16/18 [Rx] Acetaminophen Tab [Tylenol] 500 mg PO Q6HR PRN 03/21/18 [History] Diltiazem Oral [Cardizem*] 60 mg PO Q8H 03/21/18 [History] Docusate [Colace] 100 mg PO HS 03/21/18 [History] Glycerin Adult Suppository 1 supp RECTAL DAILY 03/21/18 [History] Insulin Aspart [NovoLOG (formulary)] 3 unit SQ ACHS 03/21/18 [History] Losartan Potassium [Cozaar] 100 mg PO DAILY 03/21/18 [History] Magnesium Hydroxide [Milk of Magnesia Concentrate] 2,400 mg PO DAILY PRN [History] Sennosides-Docusate Sodium [Senokot-S] 2 tab PO BID 03/21/18 [History] Follow up Appointment(s)/Referral(s): Mariaa Chery DO [Primary Care Provider] - 1-2 days Discharge Disposition: - Preliminary Cause of Preliminary Cause of : Sepsis due to acute cholecystitis and ischemic bowel
== END 2018-03-25 03:07 | disposition expired | DRG 853 ==
LOC: EC 19:41 → 3OBS 23:27 → OBSVTOIN 03-22 17:10 → 6ICU 03-23 11:38
PROVIDERS: ADMIT Internal Medicine; ATTEND Internal Medicine
PROC: 0DB80ZZ Excision of Small Intestine, Open Approach (ICD-10-PCS; 2018-03-23)
PROC: BF10YZZ Fluoroscopy of Bile Ducts using Other Contrast (ICD-10-PCS; 2018-03-23)
PROC: 5A1945Z Respiratory Ventilation, 24-96 Consecutive Hours (ICD-10-PCS; 2018-03-23)
PROC: 0D9670Z Drainage of Stomach with Drainage Device, Via Natural or Artificial Opening (ICD-10-PCS; 2018-03-23)
PROC: 0FT40ZZ Resection of Gallbladder, Open Approach (ICD-10-PCS; principal; 2018-03-23 10:40)
DX: A41.9 Sepsis, unspecified organism (principal); K55.029 Acute infarction of small intestine, extent unspecified; K72.00 Acute and subacute hepatic failure without coma; J96.00 Acute respiratory failure, unspecified whether with hypoxia or hypercapnia; R65.21 Severe sepsis with septic shock; K80.00 Calculus of gallbladder with acute cholecystitis without obstruction; I50.32 Chronic diastolic (congestive) heart failure; J96.11 Chronic respiratory failure with hypoxia; N39.0 Urinary tract infection, site not specified; E87.2 Acidosis; N17.9 Acute kidney failure, unspecified; R65.20 Severe sepsis without septic shock; Z66 Do not resuscitate; Z51.5 Encounter for palliative care; I27.20 Pulmonary hypertension, unspecified; J44.9 Chronic obstructive pulmonary disease, unspecified; I11.0 Hypertensive heart disease with heart failure; I48.2 Chronic atrial fibrillation; E11.9 Type 2 diabetes mellitus without complications; K29.70 Gastritis, unspecified, without bleeding; I25.10 Atherosclerotic heart disease of native coronary artery without angina pectoris; K21.9 Gastro-esophageal reflux disease without esophagitis; F40.240 Claustrophobia; K59.00 Constipation, unspecified; E78.5 Hyperlipidemia, unspecified; N28.89 Other specified disorders of kidney and ureter; E66.9 Obesity, unspecified; Z68.31 Body mass index [BMI] 31.0-31.9, adult; Z99.81 Dependence on supplemental oxygen; Z79.01 Long term (current) use of anticoagulants; Z79.4 Long term (current) use of insulin; Z79.899 Other long term (current) drug therapy; Z85.118 Personal history of other malignant neoplasm of bronchus and lung; Z90.2 Acquired absence of lung [part of]; Z86.19 Personal history of other infectious and parasitic diseases; Z87.891 Personal history of nicotine dependence; Z86.61 Personal history of infections of the central nervous system; Z95.5 Presence of coronary angioplasty implant and graft; Z98.51 Tubal ligation status; Z88.5 Allergy status to narcotic agent; Z83.3 Family history of diabetes mellitus
CPT/HCPCS: 36415; 36600; 71045; 74018; 74176; 74300; 76705; 80048; 80053; 80061; 81001; 82150; 82550; 82553; 82805; 83036; 83605; 83690; 83735; 84100; 84484; 85025; 85027; 85610; 85730; 87040; 87070; 87075; 87086; 87205; 87324; 88304; 88307; 93005; 93306; 94002; 94003; 94640; 94760; 96361; 96374; 96375; 96376; 99285